=== PATIENT | male | born 1970 | race Caucasian/White ===

== ENCOUNTER 2018-08-30 16:17 | Observation (INO) | payer BC ==
[2018-08-30] MEDS ORDERED: Al Hydrox/Mg Hydrox/Simet LIQ* 30 ML UDC PO ONE (16:46)
[2018-08-30] MEDS ORDERED: Lidocaine 2% VISCOUS* 15 ML UDC PO ONE (16:46)
--- NOTE | 2018-08-30 16:58 | ED ---
Abdominal Pain/Male - HPI Summary HPI Summary: This patient is a 48 year old M presenting to [facility] c/o epigastric pain that has been intermittent for the last two weeks but recently became constant. The patient received an US 3 days ago that showed atrophic pancreas. Pr also goes have type II DM but is not responding to his medications, so he has elevated BG recently. The patient rates the pain 8/10 in severity and states it radiates into his back. Symptoms aggravated by eating and hitting bumps in his car. Symptoms alleviated by compression. Patient denies injury, significant weight loss, and melena. No hx of etoh abuse. The patient takes Tramadol for pain and had bariatric surgery in [address] Mcclendon. - History of Current Complaint Chief Complaint: EDAbdPain Stated Complaint: ABD PAIN/BACK PAIN Time Seen by Provider: 08/30/18 16:35 Hx Obtained From: Patient Onset/Duration: Still Present Timing: Constant Severity Initially: Severe Severity Currently: Severe Pain Intensity: 8 Pain Scale Used: 0-10 Numeric Location: Epigastric Radiates: Yes Radiates to: Back Aggravating Factor(s): Food, Other: - jaring movements Associated Signs And Symptoms: Positive: Negative - injury, significant weight loss, and melena. - Allergies/Home Medications Allergies/Adverse Reactions: Allergies Allergy/AdvReac Type Severity Reaction Status Date / Time No Known Allergies Allergy Verified 08/30/18 16:33 Home Medications: Home Medications Liraglutide (NF) [Victoza (NF)] 1 mg SUBCUT DAILY 08/30/18 [History Confirmed ] Lisinopril 10 mg PO DAILY 08/30/18 [History Confirmed 08/30/18] Pregabalin [Lyrica] 50 mg PO TID 08/30/18 [History Confirmed 08/30/18] Tramadol HCl 50 mg PO DAILY 08/30/18 [History Confirmed 08/30/18] metFORMIN* [Glucophage 1000 MG TAB *] 1,000 mg PO BID 08/30/18 [History Confirmed 08/30/18] PMH/Surg Hx/FS Hx/Imm Hx Endocrine/Hematology History: Reports: Hx Diabetes Denies: Hx Thyroid Disease Cardiovascular History: Reports: Hx Cardiomegaly - STATED NOTED AFTER ROUTINE XRAY YEARS AGO-NO PROBLEMS, Hx Hypertension Denies: Hx Congestive Heart Failure, Hx Pacemaker/ICD, Other Cardiovascular Problems/Disorders Respiratory History: Reports: Hx Sleep Apnea, Other Respiratory Problems/ Disorders - bipap at night Denies: Hx Asthma, Hx Chronic Obstructive Pulmonary Disease (COPD) GI History: Reports: Hx Gall Bladder Disease - gall bladder removal, Hx Irritable Bowel, Other GI Disorders - gastric bypass, incontinence Denies: Hx Ulcer Sensory History: Reports: Hx Contacts or Glasses Denies: Hx Hearing Aid Opthamlomology History: Reports: Hx Contacts or Glasses Neurological History: Reports: Hx Headaches - OCCASIONAL, Hx Nerve Disease - DIABETIC NEUROPATHY, Hx Seizures, Other Neuro Impairments/Disorders - OCCASIONAL NUMB FINGERS DUE TO LYMPH NODE SWELLING BILATERAL ARMPITS Psychiatric History: Reports: Hx Anxiety - ON MEDS, Hx Depression - Surgical History Surgery Procedure, Year, and Place: GALL BLADDER REMOVED,. bariatric surgery ( April 2013). Nasal Surgery. Knee surgery. Tonsillectomy Hx Anesthesia Reactions: No - Immunization History Date of Tetanus Vaccine: unknown Date of Influenza Vaccine: 2013 Infectious Disease History: No Infectious Disease History: Denies: Hx Hepatitis, Hx Human Immunodeficiency Virus (HIV), Traveled Outside the [place] in Last 30 Days - Family History Known Family History: Negative: Respiratory Disease, Seizure Disorder - Social History Alcohol Use: None Substance Use Type: Reports: None Hx Tobacco Use: Yes Smoking Status (MU): Light Every Day Tobacco Smoker Type: Cigarettes Amount Used/How Often: on and off for years Have You Smoked in the Last Year: Yes Review of Systems Constitutional: Negative - injury Negative: Fever, Chills Negative: Erythema Negative: Sore Throat Negative: Chest Pain Negative: Shortness Of Breath, Cough Gastrointestinal: Negative - weight loss melena Positive: Abdominal Pain. Negative: Vomiting, Nausea Negative: dysuria, hematuria Negative: Myalgia, Edema Negative: Rash Neurological: Negative - dizziness All Other Systems Reviewed And Are Negative: Yes Physical Exam - Summary Physical Exam Summary: Constitutional: Well-developed, Well-nourished, Alert. (-) Distressed Skin: Warm, Dry HENT: Normocephalic; Atraumatic Eyes: Conjunctiva normal Neck: Musculoskeletal ROM normal neck. (-) JVD, (-) Stridor, (-) Tracheal deviation Cardio: Rhythm regular, rate normal, Heart sounds normal; Intact distal pulses; The pedal pulses are 2+ and symmetric. Radial pulses are 2+ and symmetric. (-) Murmur Pulmonary/Chest wall: Effort normal. (-) Respiratory distress, (-) Wheezes, (-) Rales Abd: Soft, (+) epigastric tenderness, (-) Distension, (-) Guarding, (-) Rebound Musculoskeletal: (-) Edema Lymph: (-) Cervical adenopathy Neuro: Alert, Oriented x3 Psych: Mood and affect Normal Triage Information Reviewed: Yes Vital Signs On Initial Exam: Initial Vitals Temp Pulse Resp BP Pulse Ox 97.8 F 88 20 184/106 99 08/30/18 16:18 08/30/18 16:18 08/30/18 16:18 08/30/18 16:18 08/30/18 16:18 Vital Signs Reviewed: Yes Diagnostics - Vital Signs Vital Signs Temp Pulse Resp BP Pulse Ox 08/30/18 16:18 97.8 F 88 20 184/106 99 - Laboratory Result Diagrams: 08/30/18 16:51 08/30/18 16:51 Lab Statement: Any lab studies that have been ordered have been reviewed, and results considered in the medical decision making process. - CT CT ABD/Pelvis CT Interpretation Completed By: Radiologist Summary of CT Findings: 1. There appears to be mild wall thickening in the distal esophagus, cannot. exclude esophagitis. 2. No other acute CT pathology. No signs of bowel obstruction or significant. bowel inflammatory change. ED physician has reviewed this radiology report. Re-Evaluation - Re-Evaluation First Eval Re-Evaluation Time: 18:46 Change: Unchanged Comment: The patient has had no improvement in pain with medications. He also denies vomiting Abdominal Pain Fem Course/Dx - Course Assessment/Plan: This patient is a 48 year old M presenting to [facility] c/o epigastric pain that has been intermittent for the last two weeks but recently became constant. The patient received an US 3 days ago that showed atrophic pancreas. Pr also goes have type II DM but is not responding to his medications , so he has elevated BG recently. The patient rates the pain 8/10 in severity and states it radiates into his back. Symptoms aggravated by eating and hitting bumps in his car. Symptoms alleviated by compression. Patient denies injury, significant weight loss, and melena. No hx of etoh abuse. The patient takes Tramadol for pain and had gastric [place] [address] ABD/Pelvis reveals, per radiologist, 1. There appears to be mild wall thickening in the distal esophagus, cannot. exclude esophagitis. 2. No other acute CT pathology. No signs of bowel obstruction or significant. bowel inflammatory change. Blood work obtained. In the ED course the patient was given insulin, GI cocktail, Zofran, morphine, and IV fluids. Dx epigastric pain and uncntorlled. We discussed patient care with Dr. Kelly and the patient was accepted for admission. Patient will be admitted. The patient is agreeable with this plan. - Diagnoses Differential Diagnosis/HQI/PQRI: Peptic Ulcer Disease, Other - gastric bypass ulcer, gastritis, pancreatitis Provider Diagnoses: Uncontrolled diabetes mellitus, Epigastric pain - Provider Notifications Discussed Care Of Patient With: Teresa Kelly Time Discussed With Above Provider: 20:44 Instructed by Provider To: Admit As Inpatient Discharge - Sign-Out/Discharge Documenting (check all that apply): Patient Departure - admitted - Discharge Plan Condition: Fair Disposition: ADMITTED TO [facility] Referrals: Ximena Fitch NP [Primary Care Provider] - - Attestation Statements Document Initiated by Armandoibe: Yes Documenting Scribe: Zeus Maria Provider For Whom Dillon is Documenting (Include Credential): David Gold MD Scribe Attestation: Zeus Norris scribed for David Gold MD on 08/30/18 at 2044. Status of Scribe Document: Ready
[2018-08-30 17:01] LABS: ABS Basophils 0 10^3/ul (0-0.2); ABS Eosinophils 0.1 10^3/ul (0-0.6); ABS Lymphocytes 1.6 10^3/ul (1.0-4.8); ABS Monocytes 0.5 10^3/ul (0-0.8); ABS Neutrophils 2.9 10^3/ul (1.5-7.7); ABS Nucleated RBC 0 10^3/ul; Eosinophil % 2.7 %; Hematocrit 38 % (42-52); Hemoglobin 12.8 g/dl (14.0-18.0); Lymphocyte % 30.4 %; Mean Corpuscular HGB Conc 34 g/dl (31-36); Mean Corpuscular Hemoglobin 30 pg (27-31); Mean Corpuscular Volume 90 fL (80-94); Mean Platelet Volume 7.6 fL (7.4-10.4); Nucleated Red Blood Cells % 0.1; Platelet Count 274 10^3/ul (150-450); Red Blood Count 4.22 10^6/ul (4.00-5.40); Red Cell Distribution Width 13 % (10.5-15); White Blood Count 5.2 10^3/ul (3.5-10.8)
[2018-08-30 17:20] LABS: Albumin 2.8 g/dL (3.2-5.2); Albumin/Globulin Ratio 1.1 (1-3); BUN/Creatinine Ratio 36.5 (8-20); C Reactive Protein 2.22 mg/L (<8.01); Calcium 8.3 mg/dL (8.6-10.3); EGFR Non-African American 96.6 (>60); Globulin 2.5 g/dL (2-4); Potassium 4.3 mmol/L (3.5-5.0); Total Bilirubin 0.3 mg/dL (0.2-1.0); Total Protein 5.3 g/dL (6.4-8.9)
[2018-08-30] MEDS ORDERED: Iodixanol* (CONTRAST) 320 MG/ML 100 ML SDV IV ONE (17:51)
[2018-08-30] MEDS ORDERED: Insulin REGULAR(*) 1 UNITS UNIT SUBCUT ONE (18:23)
[2018-08-30] MEDS ORDERED: Ondansetron INJ* 2 MG/ML VIAL IV ONE (18:44)
[2018-08-30] MEDS ORDERED: Morphine VIAL* 4 MG/ML VIAL (1 ml vial) IV ONE (18:44)
[2018-08-30] MEDS ORDERED: NS 0.9% 1000 ML* 1,000 ML IV ONE (18:44)
[2018-08-30] MEDS ORDERED: Nicotine Inhaler* 10 MG AMP INH PRN (21:09)
[2018-08-30] MEDS ORDERED: Dextrose 50% Syringe 50 ML* 25 GM/50 ML SYRINGE IV PUSH PRN (21:15)
[2018-08-30] MEDS ORDERED: PROCHLORPERAZINE INJ 5 MG/ML 2 ML VIAL IV PRN (21:29)
[2018-08-30] MEDS ORDERED: Insulin LISPRO* 1 UNITS UNIT SUBCUT SCH (22:00)
[2018-08-30] MEDS ORDERED: Insulin GLARGINE(*) 1 UNITS UNIT SUBCUT SCH (22:00)
--- NOTE | 2018-08-30 22:33 | HP ---
CC: Ximena Fitch NP HISTORY AND PHYSICAL: PRIMARY CARE PROVIDER: Ximena Fitch NP ADDENDUM: The patient's EKG shows sinus rhythm at 77 beats per minute with a left anterior fascicular block and no acute ischemic changes. No significant change when compared to his prior EKG from May 2015. [id number]/[facility] #: [id number] MTDD
[2018-08-30] MEDS: Lactated Ringers 1000 ML Bag* 1,000 ML IV SCH (23:04)
[2018-08-30] MEDS: Morphine INJ* 2 MG/ML 1 ML SYRINGE (TWO MG - NEW SYRINGE VERSION) IV PRN (23:30)
[2018-08-30] MEDS: Pantoprazole IV* 40 MG IV SCH (23:31)
--- NOTE | 2018-08-30 23:34 | HP ---
ADDENDUM NOW INCLUDED ON THIS REPORT CC: Ximena Fitch NP * HISTORY AND PHYSICAL: DATE OF ADMISSION: 08/30/18 TIME OF EVALUATION: 9 p.m. PRIMARY CARE PROVIDER: Ximena Fitch NP. CHIEF COMPLAINT: Abdominal pain. HISTORY OF PRESENT ILLNESS: Mr. Jackson is a 48-year-old male with past medical history of type 2 diabetes, depression, hyperlipidemia, hypertension, obesity; status post gastric bypass Young-en-Y, status post cholecystectomy who presented to the emergency room with complaints of abdominal pain. The patient states that he was in his usual state of health until around [place] when he started to experience epigastric abdominal pain. He states that the pain was a "rolling" sensation that he rated 2/10. Initially, the pain would subside with Tylenol, but it continued to progress to the point that it radiated under both sides of his rib cage and towards his back. He states that when the pain is severe, he would rate it at 9/10 and he states that it is very difficult to describe it because sometimes it can feel as a stabbing sensation and other times it can feel like this rolling sensation. He denies nausea and vomiting, but states that sometimes when he drinks liquids fast, he feels that the liquid gets stuck and then it comes right back up, but he does not call that vomiting. He denies diarrhea. He states that since his surgery he can go 4 to 5 days without a bowel movement and then has 4 to 5 bowel movements in a day and this has been unchanged. He states that he did well after the surgery and has lost more than 200 pounds. He states that he has had no issues with his stomach since the surgery and that he does not follow any specific diet. He only eats everything in very small portions. He denies fever, chills, cough, shortness of breath, chest pain. He complains of mild left-sided shoulder pain that is worse with left arm abduction. There is no chest pain, no palpitations. 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 There is no urinary complaint also. With his significant weight loss, the patient has a small pannus in the abdominal area that is actually smaller than expected for his considerable weight loss, but he complains of a burning sensation and tingly feeling in the area. PAST MEDICAL HISTORY: 1. Type 2 diabetes. 2. Depression. 3. Obesity, status post Young-en-Y in 2012 with weight loss greater than 200 pounds. 4. Hyperlipidemia. 5. Hypertension. 6. Status post cholecystectomy. 7. Status post septoplasty for deviated septum. MEDICATIONS: 1. Victoza 1.2 mg subcutaneously daily. 2. Lisinopril 10 mg p.o. daily. 3. Metformin 1000 mg p.o. b.i.d. 4. Lyrica 50 mg p.o. t.i.d. 5. Tramadol 50 mg p.o. daily. 6. Chantix 1 mg p.o. b.i.d. ALLERGIES: No known drug allergies. FAMILY HISTORY: His mother had a history of TIA and breast cancer. Father, diabetes and pancreatitis. SOCIAL HISTORY: The patient was a pihy-nksl-y-day smoker. He has quit multiple times and is now on Chantix again and smoking 2 to 3 cigarettes a day. He denies any history of alcohol or drug use. 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 Due to his uncontrolled diabetes, he will have to go on to disability and he will lose his truck, so he is homeless at this time. Surrogate decision maker is his friend, Alida Jackson; phone number is [phone]. REVIEW OF SYSTEMS: A 14-point review of systems was performed and all the pertinent negative and positive findings are in the HPI. PHYSICAL EXAMINATION GENERAL: Patient is a pleasant middle-aged gentleman, sitting up in the ED stretcher, in no acute distress. VITAL SIGNS: Temperature 97.8, heart rate is 76, respiratory rate 20, oxygen saturation 97% on room air, blood pressure is 138/86. HEENT: Pupils are equal. Moist mucous membranes. CHEST: Breath sounds present bilaterally with no added sounds. CVS: Normal S1, S2. Regular rate and rhythm. ABDOMEN: Shows mild diffuse tenderness with no guarding or rebound. The tenderness is more intense in the epigastric area. Bowel sounds are present. He has a small pannus. EXTREMITIES: No edema. NEUROLOGIC: He is alert and oriented x3, able to move all 4 extremities. LABORATORY/IMAGING DATA: Patient had a CBC that showed a WBC of 5.2, hemoglobin of 12.8, hematocrit of 38, platelets of 274 with 55% neutrophils. Chemistry showed sodium of 133, potassium 4.3, chloride of 99, bicarbonate of 31 , BUN of 31, creatinine of 0.8, glucose of 590, lactic acid of 1.9, calcium of 8.3. LFTs showed total bilirubin of 0.3, AST of 89, ALT of 76, alk phos of 245 , CRP of 2.2, lipase of 357. CT of the abdomen and pelvis showed mild wall thickening in the distal esophagus , cannot exclude esophagitis. No other acute CT pathology. No signs of bowel obstruction or significant bowel inflammatory change. The pancreas was described as normal with no ductal dilation. Abdomen ultrasound was performed on 08/27/18 and it showed hepatosteatosis, status post cholecystectomy with no biliary dilatation, an atrophic pancreas, and 3 cm cyst in the lower pole of the right kidney. ASSESSMENT AND PLAN: Mr. Jackson is a 48-year-old male with a past medical history of type 2 diabetes, hyperlipidemia, hypertension, depression, status post gastric bypass with Young-en-Y, status post cholecystectomy who presented to the emergency room with complaints of abdominal pain. 1. Abdominal pain. The patient's lipase is slightly elevated, but his CT shows no signs of acute pancreatitis. The patient denies a history of alcohol abuse. I am concerned that his abdominal pain may be secondary to gastritis versus an anastomotic ulcer considering his history of Young-en-Y. His CT is also suggestive of possible esophagitis. The patient will be admitted as observation to the medical floor. He will have clear liquids for now and will be n.p.o. after midnight for an upper endoscopy in the morning. A GI consultation was requested with Dr. Garcia. At this point, he will be started on a PPI and he will receive symptomatic treatment. His LFTs are elevated and he already had some elevation back in 2015. This is probably associated with his steatosis. We will check hepatitis serology, but as described, his CT and ultrasound did not show any biliary pathology. 2. Type 2 diabetes, has been uncontrolled. The patient states that he is in the process of going into disability, so he can use insulin and focus on his diabetes control. At this time, he is going to be started on insulin now. I am holding his Victoza and we will also hold his metformin as he had a contrast study. He will receive Lantus and lispro q.4 hours. Although his glucose is 590, he has a normal bicarb and only mild hyponatremia with no signs of diabetic ketoacidosis. I will request endocrinology evaluation as this patient would certainly benefit from an evaluation. I will also check a lipid profile as I suspect his triglycerides will be elevated contributing to his steatosis. 3. Hypertension, is controlled. We will continue his lisinopril. 4. DVT prophylaxis. The patient has a score of 1 and he will have SCDs. 5. Code status is full. TIME SPENT: Approximately 60 minutes were spent with the patient interview, medical records review, physical examination to complete the admission, more than half this time was spent [id number] with the patient and in coordination of care. ADDENDUM: The patient's EKG shows sinus rhythm at 77 beats per minute with a left anterior fascicular block and no acute ischemic changes. No significant change when compared to his prior EKG from May 2015. [id number]/[facility]PS #: [id number] #: [id number] SANYA
[2018-08-31] MEDS: Morphine INJ* 2 MG/ML 1 ML SYRINGE (TWO MG - NEW SYRINGE VERSION) IV PRN ×9 (01:05→22:25)
[2018-08-31] MEDS ORDERED: HYDROmorphone INJ1* 1 MG/ML SYRINGE IV SLOW PU ONE (05:57)
[2018-08-31] MEDS: Lactated Ringers 1000 ML Bag* 1,000 ML IV SCH ×2 (07:29→18:22)
[2018-08-31 07:54] LABS: Anion Gap 3 mmol/L (2-11); BUN/Creatinine Ratio 38.3 (8-20); Blood Urea Nitrogen 23 mg/dL (6-24); CO2 Carbon Dioxide 31 mmol/L (22-32); Calcium 8.1 mg/dL (8.6-10.3); Chloride 103 mmol/L (101-111); Cholesterol 189 mg/dL; EGFR Non-African American 144.4 (>60); Glucose 176 mg/dL (70-100); HDL Cholesterol 31.7 mg/dL; LDL Cholesterol 117 mg/dL; Potassium 4.2 mmol/L (3.5-5.0); Sodium 137 mmol/L (135-145); Triglycerides 201 mg/dL
[2018-08-31] MEDS: Insulin LISPRO* 1 UNITS UNIT SUBCUT SCH ×4 (08:36→22:23)
[2018-08-31] MEDS ORDERED: Lisinopril TAB* 10 MG PO SCH (09:00)
[2018-08-31] MEDS ORDERED: traMADol TAB* 50 MG PO SCH (09:00)
[2018-08-31] MEDS: Pregabalin CAP(*) 50 MG PO SCH ×3 (09:50→22:25)
[2018-08-31] MEDS: VARENICLINE 0.5 MG PO SCH ×2 (09:51→22:37)
[2018-08-31 10:21] LABS: Hepatitis B Surface Antigen Nonreactive (Nonreactive)
[2018-08-31 10:45] LABS: Hepatitis C Antibody Nonreactive (Nonreactive)
[2018-08-31 11:05] LABS: Urine Appearance Clear; Urine Bacteria Absent (Absent); Urine Bilirubin Negative (Negative); Urine Blood Negative (Negative); Urine Color Yellow; Urine Glucose 2+(150 mg/dL) (Negative); Urine Ketones 1+ (Negative); Urine Nitrite Negative (Negative); Urine Protein 2+(100 mg/dL) (Negative); Urine Red Blood Cell 1+(3-5/hpf) (Absent); Urine Specific Gravity 1.026 (1.010-1.030); Urine Urobilinogen Positive (Negative); Urine White Blood Cell Trace(0-5/hpf) (Absent)
[2018-08-31] MEDS ORDERED: Buffered Lidocaine 1% SYRIN* 1 ML/SYRINGE INTRADERM ONE (11:28)
[2018-08-31] MEDS ORDERED: Acetaminophen TAB* 325 MG PO PRN (11:29)
[2018-08-31] MEDS ORDERED: Naloxone* 0.4 MG/ML 1 ML VIAL IV PRN (11:29)
[2018-08-31] MEDS ORDERED: Levalbuterol 0.63MG/3ML NEB* UNIT OF USE INH PRN (11:29)
[2018-08-31] MEDS ORDERED: Famotidine IV* 10 MG/ML 2 ML (20 mg) ONE (11:56)
[2018-08-31] MEDS ORDERED: fentaNYL* 50 MCG/ML 2 ML VIAL (100 MCG VIAL) ONE (11:56)
[2018-08-31] MEDS ORDERED: Midazolam* 1 MG/ML 2 ML VIAL (2 MG) ONE (11:56)
[2018-08-31] MEDS ORDERED: Propofol* 10 MG/ML 20 ML BTL ONE (12:08)
[2018-08-31] MEDS ORDERED: Dexamethasone IV* 4 MG/ML 1 ML (4 MG) ONE (12:08)
[2018-08-31] MEDS ORDERED: Lidocaine 2% PF * 5 ML VIAL ONE (12:08)
--- NOTE | 2018-08-31 12:19 | CONS ---
CC: Ximena Fitch NP CONSULTATION REPORT: DATE OF CONSULT: 08/31/18 REASON FOR CONSULTATION: Abdominal pain, history of gastric bypass, concern for anastomotic ulcerati on. HISTORY OF PRESENT ILLNESS: This is a pleasant 48-year-old male with a history of type 2 diabetes, d epression, hyperlipidemia, morbid obesity, status post Young-en-Y gastric bypass, and cholecystectomy, who presented to the emergency room with abdominal pain and back pain. The patient states that the pain began in mid July. He started to experience pain mostly in the epigastric region. He said it was cramping initially, rated at 2 to 3/10. He did take some Tylenol, which would help subside so me of the pain. He states that the pain is occasionally worse with eating. He states that the pain never fully goes away at this point. It waxes and wanes between 2 to 9/10. Admits to nausea and vom iting, did have 1 episode of nausea this morning with dry heaves. No hematemesis. He does admit to liquid dysphagia and describes almost rumination at times. Denies any diarrhea but admits to not mov ing his bowels every 4 to 5 days and then he will have some looser movements during the day and then the cycle repeats itself. He is not taking anything for his bowels at this time. He denies any feve r, chills, shakes or rigors. PAST MEDICAL HISTORY: Diabetes type 2, depression, obesity, hyperlipidemia, hypertension, cholecyste ctomy, septoplasty, Young-en-Y gastric [place] [address] Mcclendon. HOME MEDICATIONS: Include: 1. Victoza. 2. Lisinopril. 3. Metformin. 4. Lyrica. 5. Tramadol. 6. Chantix. ALLERGIES: No known drug allergies. FAMILY HISTORY: No family history of GI cancer or inflammatory bowel disease. SOCIAL HISTORY: He smokes half a pack a day. Denies alcohol or drug use. REVIEW OF SYSTEMS: The remainder of the 14-point review of systems is grossly negative except for as described in the HPI. PHYSICAL EXAM: Vital Signs: Blood pressure is 154/97, pulse is 72, respiratory rate is 16, he is 98 % on room air. In general, he is alert and oriented, in no acute distress. HEENT: Atraumatic, norm ocephalic. Pupils equal, round, reactive to light. Extraocular movements intact. Conjunctivae are pink. Sclerae anicteric. Cardiovascular: Regular rate and rhythm. S1, S2. Respiratory: Clear to auscultation bilaterally. Abdomen: Soft. Mild tenderness to palpation in the epigastric region. No guarding or rebound. Extremities: No clubbing, no cyanosis, no edema. DIAGNOSTIC STUDIES/LAB DATA: Hemoglobin is 12.8, platelet count is 274. Sodium is 133. Glucose on admission was 590, now 176. AST is 89, ALT is 76, alkaline phosphatase is 245. Lipase is 357 on adm ission, now 54. He had a CT of the abdomen and pelvis, this revealed esophageal thickening, did not reveal any pancreatic changes. ASSESSMENT AND PLAN: This is a 48-year-old male with epigastric pain and mild anemia. 1. Epigastric pain. The patient has a history of Young-en-Y. Pain is atypical given the constant na ture for GI pain but certainly an anastomotic ulceration is within the differential. We discussed th e risks, benefits, and alternatives to endoscopic evaluation and we will proceed with endoscopic eval uation. Of note, the patient did have esophageal thickening on the CT and has liquid dysphagia. 2. Anemia. We would recommend checking iron studies, if found to be iron deficient. Recommend if n o source found on upper endoscopy outpatient colonoscopy will be considered. 3. Transaminitis. History of obesity in the past. He does not drink alcohol. We will recommend he patitis serologies in addition to autoimmune workup and the patient will need to follow up with me in the office after discharge from the hospital for further evaluation. 4. Type 2 diabetes mellitus. [id number]/[facility] #: [id number]
[2018-08-31] MEDS: traMADol TAB* 50 MG PO SCH ×3 (14:05→22:24)
--- NOTE | 2018-08-31 14:38 | PN ---
Subjective Date of Service: 08/31/18 Interval History: Mr. Jackson is feeling ok this morning. He c/o abd tenderness, though no outright pain. He describes lower back pain which radiates to bilat flanks. This has been present since around . He also c/o BUE and BLE weakness. Reports multiple falls since where he feels as though his legs are "giving out." Describes tingling in bilat hands and feet and a "numb" sensation to his lower abd, though he denies any loss of sensation in that area. No incontinence or saddle anesthesia. Denies CP, SOB, N/V/D. Family History: Unchanged from Admission Social History: Unchanged from Admission Past Medical History: Unchanged from Admission Objective Active Medications: Acetaminophen (Tylenol Tab*) 650 mg PO ONCE PRN PAIN - MILD Dextrose (D50w Syringe 50 Ml*) 12.5 gm IV PUSH .FOR FS < 60 - SS PRN FS < 60 Lactated Ringer's (Lactated Ringers 1000 Ml Bag*) 1,000 mls @ 125 mls/hr IV PER RATE [facility] Lactated Ringer's (Lactated Ringers 1000 Ml Bag*) 1,000 mls @ 125 mls/hr IV PER RATE [facility] Insulin Human Lispro (Humalog*) 0 units SUBCUT ACHS [facility]; Protocol Levalbuterol HCl (Xopenex 0.63mg/3ml Neb*) 0.63 mg INH ONCE PRN SOB/WHEEZING Lidocaine/Sodium Bicarbonate (Buffered Lidocaine 1% Syrin*) 0.2 ml INTRADERM ONCE ONE Lisinopril (Prinivil Tab*) 10 mg PO DAILY [facility] Morphine Sulfate (Morphine Inj ((Syringe))*) 2 mg IV Q3H PRN SEVERE PAIN Naloxone HCl (Narcan*) 0.08 mg IV Q2M PRN severe induced resp depression Nicotine (Nicotine Inhaler*) 10 mg INH Q2H PRN CRAVING Pantoprazole Sodium (Protonix Iv*) 40 mg IV Q24H [facility] Pregabalin (Lyrica Cap(*)) 50 mg PO TID [facility] Prochlorperazine Edisylate (Compazine Inj*) 5 mg IV Q6H PRN NAUSEA/VOMITING Tramadol HCl (Ultram*) 50 mg PO Q6H [facility] Varenicline (Chantix (Nf)) 1 mg PO BID [facility] Vital Signs - 8 hr 08/31/18 08/31/18 08/31/18 07:53 09:50 09:51 Temperature 98.2 F Pulse Rate 73 Respiratory 18 18 18 Rate Blood Pressure 175/98 (mmHg) O2 Sat by Pulse 98 Oximetry 08/31/18 08/31/18 08/31/18 10:05 12:20 12:25 Temperature 98.1 F Pulse Rate 73 Respiratory 16 Rate Blood Pressure 180/72 140/88 (mmHg) O2 Sat by Pulse 98 Oximetry 08/31/18 08/31/18 08/31/18 12:30 12:31 12:35 Temperature Pulse Rate 74 75 75 Respiratory 5 14 8 Rate Blood Pressure 142/86 134/86 (mmHg) O2 Sat by Pulse 98 98 96 Oximetry 08/31/18 08/31/18 08/31/18 12:40 12:45 12:50 Temperature Pulse Rate 75 74 74 Respiratory 4 1 0 Rate Blood Pressure 143/91 146/88 146/86 (mmHg) O2 Sat by Pulse 95 93 96 Oximetry 08/31/18 08/31/18 08/31/18 12:55 13:00 13:01 Temperature Pulse Rate 75 74 75 Respiratory 3 0 0 Rate Blood Pressure 151/92 146/88 (mmHg) O2 Sat by Pulse 96 96 97 Oximetry 08/31/18 08/31/18 13:05 14:05 Temperature Pulse Rate 75 Respiratory 18 Rate Blood Pressure 164/94 (mmHg) O2 Sat by Pulse 93 Oximetry Oxygen Devices in Use Now: None Appearance: Middle-aged male laying in bed in NAD Eyes: No Scleral Icterus Ears/Nose/Mouth/Throat: Mucous Membranes Moist Neck: NL Appearance and Movements; NL JVP, Trachea Midline Respiratory: Symmetrical Chest Expansion and Respiratory Effort, Clear to Auscultation Cardiovascular: NL Sounds; No Murmurs; No JVD, RRR Abdominal: - - Mild tenderness to palpation of RLQ and LLQ Extremities: No Edema Skin: No Rash or Ulcers Neurological: Alert and Oriented x 3, - - 4/5 strength to BUE and BLE Lines/Tubes/Other Access: Clean, Dry and Intact Peripheral IV Nutrition: Taking PO's Result Diagrams: 08/30/18 16:51 08/31/18 07:11 Assess/Plan/Problems-Billing Assessment: Mr. Jackson is a 48 yo M with PMH of DM2, depression, obesity s/p gastric bypass in 2013, HTN and HLD; who presented to the ED with c/o abd pain without a clear etiology. - Patient Problems (1) Abdominal pain Code(s): R10.9 - UNSPECIFIED ABDOMINAL PAIN Comment: - Unclear etiology - CT shows esophageal wall thickening, but no other acute findings - Recent abd US shows hepatosteatosis and atrophic pancreas - Appreciate GI consult; plan for upper endoscopy today - Continue pantoprazole, morphine (2) Weakness Code(s): R53.1 - WEAKNESS Comment: - With decreased strength to BUE and BLE, reported recent falls - Appears as though he did not mention this on admission yesterday, and there are no neurological deficits noted in H&P, so this may represent malingering - Check MRI brain and spine to r/o neurological etiology (3) Headache Code(s): R51 - HEADACHE Comment: - Possible malingering - Check MRI brain d/t sudden onset and age (4) Elevated LFTs Code(s): R94.5 - ABNORMAL RESULTS OF LIVER FUNCTION STUDIES Comment: - Possibly secondary to hepatosteatosis - Will recheck LFTs today (5) Diabetes type 2, uncontrolled Code(s): E11.65 - TYPE 2 DIABETES MELLITUS WITH HYPERGLYCEMIA Comment: - Hgb A1c 12.8% and significant hyperglycemia on arrival to ED - Appreciate Endocrine consult - Will check c-peptide d/t atrophic pancreas and elevated A1c; ? type 1.5 - Hold Victoza, metformin - Continue lispro SS (6) Hypertension Code(s): I10 - ESSENTIAL (PRIMARY) HYPERTENSION Comment: - SBP 130-150s - Continue lisinopril (7) History of Young-en-Y gastric bypass Code(s): Z98.84 - BARIATRIC SURGERY STATUS Comment: - Continue patoprazole (8) DVT prophylaxis Comment: - SCDs (9) Full code status Code(s): Z78.9 - OTHER SPECIFIED HEALTH STATUS Comment: Status and Disposition: Observation. Anticipate d/c home when medically stable, possibly tomorrow depending on MRI results. Attending: Juan Deleon
[2018-08-31 15:23] LABS: Iron 84 ug/dL (50-212); Total Iron Binding Capacity 279 mcg/dL (250-450); Transferrin 199 mg/dL (203-362)
[2018-08-31 15:29] LABS: ALT 164 U/L (7-52); AST 212 U/L (13-39); Albumin 2.6 g/dL (3.2-5.2); Albumin/Globulin Ratio 1.2 (1-3); Alkaline Phosphatase 344 U/L (34-104); Globulin 2.2 g/dL (2-4); Indirect Bilirubin 0.3 mg/dL (0.3-1.0); Total Protein 4.8 g/dL (6.4-8.9)
[2018-08-31 15:40] LABS: Ferritin 163.4 ng/mL (24-336)
[2018-08-31 16:35] LABS: ABS Basophils 0 10^3/ul (0-0.2); ABS Eosinophils 0.2 10^3/ul (0-0.6); ABS Monocytes 0.6 10^3/ul (0-0.8); ABS Neutrophils 2.9 10^3/ul (1.5-7.7); ABS Nucleated RBC 0 10^3/ul; Eosinophil % 2.9 %; Hematocrit 36 % (42-52); Hemoglobin 12.4 g/dl (14.0-18.0); Lymphocyte % 35.6 %; Mean Corpuscular HGB Conc 34 g/dl (31-36); Mean Corpuscular Hemoglobin 30 pg (27-31); Mean Corpuscular Volume 89 fL (80-94); Nucleated Red Blood Cells % 0.1; Platelet Count 283 10^3/ul (150-450); Red Blood Count 4.08 10^6/ul (4.00-5.40); Red Cell Distribution Width 13 % (10.5-15); White Blood Count 5.7 10^3/ul (3.5-10.8)
[2018-08-31 18:37] LABS: TSH (Thyroid Stimulating Horm) 1.22 mcIU/mL (0.34-5.60)
[2018-08-31 18:41] LABS: Free T4 1.04 ng/dL (0.61-1.12)
[2018-08-31] MEDS: Pantoprazole IV* 40 MG IV SCH (22:24)
--- NOTE | 2018-09-01 01:31 | PRO ---
CC: Ximena Fitch NP * EGD REPORT: DATE OF PROCEDURE: 08/31/18 - ROOM #[id number] PRIMARY NURSE PRACTITIONER: Ximena Fitch NP INDICATION FOR PROCEDURE: Epigastric pain, abnormal CT, history of Young-en- bypass. PROCEDURE PERFORMED: Complete esophagogastroduodenoscopy with biopsies. MEDICATIONS GIVEN: Please see anesthesia record. DESCRIPTION OF PROCEDURE: After the EGD procedure including the risks, benefits , and alternatives, with the risks not limited to perforation, surgery, missed lesions, and/or were explained to the patient, written and informed consent was obtained, IV sedation was given by the anesthesia service, and a bite-block was placed between the teeth. The adult Olympus gastroscope was then inserted into the patient's oropharynx carefully into the tubular esophagus. The distal tubular esophagus was normal in appearance with an intact Z-line. The scope was then advanced to the lower esophageal sphincter into the pouch. The pouch was roughly from 34 to 40 cm, was normal in appearance. Biopsies were taken to rule out H. Pylori. At the gastrojejunal junction, there was some mild nodularity and erythema, but no sofía ulceration was noted. Two joe were noted, but no ulceration next to these areas. I did take biopsies of this nodularity. The scope was then advanced into the jejunum quite far without any evidence of abnormality. The scope was then removed from the patient. He tolerated the procedure well. He returned to the recovery room in stable condition. IMPRESSION: 1. Complete esophagogastroduodenoscopy with biopsies. 2. Mild nodularity at the GJ anastomosis, no ulceration, unlikely source of pain. 3. Otherwise normal post bypass anatomy. RECOMMENDATIONS: Reasonable to try PPI trial for his epigastric pain; however, the pain appears to be more musculoskeletal at this time. Would pursue workup of that. In addition, he does admit that he only moves his bowels every 3 to 4 days. Recommend a strong bowel regimen. He is welcome to follow up with me as an outpatient if any further concerns or not moving his bowels well or ongoing epigastric pain. [id number]/[facility] #: [id number] [facility]
[2018-09-01] MEDS: Morphine INJ* 2 MG/ML 1 ML SYRINGE (TWO MG - NEW SYRINGE VERSION) IV PRN ×3 (02:38→10:25)
[2018-09-01] MEDS: traMADol TAB* 50 MG PO SCH ×2 (05:53→12:53)
[2018-09-01] MEDS: Lactated Ringers 1000 ML Bag* 1,000 ML IV SCH (05:54)
[2018-09-01 07:22] LABS: Albumin 2.3 g/dL (3.2-5.2); BUN/Creatinine Ratio 36.4 (8-20); Calcium 8.1 mg/dL (8.6-10.3); EGFR Non-African American 129.4 (>60); Globulin 2.3 g/dL (2-4); Potassium 4.1 mmol/L (3.5-5.0); Total Bilirubin 0.4 mg/dL (0.2-1.0); Total Protein 4.6 g/dL (6.4-8.9)
[2018-09-01] MEDS ORDERED: Lisinopril TAB* 10 MG PO SCH (09:00)
[2018-09-01] MEDS ORDERED: Polyethylene Glycol 3350* 17 GM PACKET PO SCH (09:00)
[2018-09-01] MEDS ORDERED: Docusate CAP* 100 MG PO SCH (09:00)
[2018-09-01] MEDS: Pregabalin CAP(*) 50 MG PO SCH ×2 (09:40→12:53)
[2018-09-01] MEDS: Insulin LISPRO* 1 UNITS UNIT SUBCUT SCH ×2 (09:40→12:53)
[2018-09-01] MEDS: VARENICLINE 0.5 MG PO SCH (09:43)
[2018-09-01 11:18] VITALS: BP 171/86
--- NOTE | 2018-09-01 11:39 | CONSULT ---
Consult Consult: [facility] Inpatient Consult Note Date of Consult: 09/01/18 Reason for Consult: hyperglycemia Reason for Admission: epigastric pain ASSESSMENT: 48 yo M with history of mild, obesity-related type 2 diabetes, now presenting with acute abdominal pain and uncontrolled diabetes (A1c >12%). History of RYGB in 2012 and hypoglycemia-induced seizure in 2014, now with radiographic evidence of atrophic pancreas and concern for insulin-deficiency. He appears to be extremely insulin-sensitive, with >500mg/dL insulin dose given in ED. Based on response to insulin given during this admission, his totaly daily insulin requirement is estimated to be approximately 0.4 units/kg/day, of which 50% should be provided as a basal insulin (glargine) and the remainder as a bolus insulin (lispro) depending on the patient's eating habits. Elevated LFTs (including significant elevation of alk phos) are unexplained. I am suspicious that low vitamin D is affecting calcium and bone homeostasis, as patient has elevated alk phos and osteopenia on imaging. This is most likely due to vitamin deficiency and possibly malabsorption. I cannot explain the lower abdominal and back symptoms at this time. PLAN: - START ergocalciferol 50,000 units once weekly - START insulin glargine 15 units once daily - continue insulin lispro sliding scale while in patient - d/c Victoza at discharge - continue metformin at discharge, but change to XR 750mg preparation - await serum trypsin (for exocrine pancreatic function), PTH (for hypocalcemia ) and fractionated alk phos (ordered today) - await C-peptide for assessment of endocrine pancreatic function - follow-up endocrine in 1-2 weeks - scripts for wearable glucometer (Freestyle Presley) sent to [facility] after discharge SUBJECTIVE: History of Present Illness: 48 yo M presenting to ED with complaints of epigastric abdominal pain, described as a stabbing sensation, 9/10 at worst, radiating to the back. No N/V, but has alternating constipation/frequent BMs since his RYGB surgery in 2012. He tells me that he has lost >200 lbs (>50% of prior body weight in the past 5 years). He has not lost any significant weight in the past year. Notes decreased frequency of urinary since June 2018. Has been off all medications (including vitamins and supplements) for past 3 years. 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 Regarding diabetes, he was on high-dose insulin regimen prior to RYGB surgery and for 1 year afterward. He has not used insulin since hypoglycemia-induced seizure in 2014. No oral medications. Reports frequent urination for many years , attributed to fluid intake. Has not checked his BG in that time. No history of DKA. He has occasional R sided headaches and was told that his vitamin D level was low. Denies loose, watery, foul-smelling stools. Main concern is lower abdominal and back pain with numbness, followed by lower extremity pins and needles. Some difficult with urination, but no sofía dysuria. Past Medical History: Diabetes mellitus type II, depression, obesity s/p RYGB and >50% body weight loss since 2012, obstructive sleep apnea, hyperlipidemia, hypertension, cholecystectomy, and septoplasty for deviated septum. Medications Prior to Admission: Varenicline 0.5 mg Tab(Nf) [Chantix] 1 mg PO BID 06/05/15 [History Confirmed ] Liraglutide (NF) [Victoza (NF)] 1.2 mg SUBCUT DAILY 08/30/18 [History Confirmed 08/30/18] Lisinopril 10 mg PO DAILY 08/30/18 [History Confirmed 08/30/18] Pregabalin [Lyrica] 50 mg PO TID 08/30/18 [History Confirmed 08/30/18] Tramadol HCl 50 mg PO DAILY 08/30/18 [History Confirmed 08/30/18] metFORMIN* [Glucophage 1000 MG TAB *] 1,000 mg PO BID 08/30/18 [History Confirmed 08/30/18] Inpatient Medications: Dextrose (D50w Syringe 50 Ml*) 12.5 gm IV PUSH .FOR FS < 60 - SS PRN PRN Reason: FS < 60 Docusate Sodium (Colace Cap*) 100 mg PO BID [facility] Last Admin: 09/01/18 09:40 Dose: 100 mg Lactated Ringer's (Lactated Ringers 1000 Ml Bag*) 1,000 mls @ 125 mls/hr IV PER RATE [facility] Last Admin: 09/01/18 05:54 Dose: 125 mls/hr Insulin Glargine (Lantus(*)) 15 units SUBCUT Q24H [facility] Insulin Human Lispro (Humalog*) 0 units SUBCUT ACHS [facility]; Protocol Last Admin: 09/01/18 09:40 Dose: 3 units Lisinopril (Prinivil Tab*) 20 mg PO DAILY [facility] Last Admin: 09/01/18 09:40 Dose: 20 mg Morphine Sulfate (Morphine Inj ((Syringe))*) 2 mg IV Q3H PRN PRN Reason: SEVERE PAIN Last Admin: 09/01/18 10:25 Dose: 2 mg Nicotine (Nicotine Inhaler*) 10 mg INH Q2H PRN PRN Reason: CRAVING Pantoprazole Sodium (Protonix Iv*) 40 mg IV Q24H [facility] Last Admin: 08/31/18 22:24 Dose: 40 mg Polyethylene Glycol/Electrolytes (Miralax*) 17 gm PO DAILY [facility] Last Admin: 09/01/18 09:42 Dose: 17 gm Pregabalin (Lyrica Cap(*)) 50 mg PO TID [facility] Last Admin: 09/01/18 09:40 Dose: 50 mg Prochlorperazine Edisylate (Compazine Inj*) 5 mg IV Q6H PRN PRN Reason: NAUSEA/VOMITING Last Admin: 08/31/18 10:00 Dose: 5 mg Tramadol HCl (Ultram*) 50 mg PO Q6H [facility] Last Admin: 09/01/18 05:53 Dose: 50 mg Varenicline (Chantix (Nf)) 1 mg PO BID [facility] Last Admin: 09/01/18 09:43 Dose: Not Given Allergies/Intolerances: NKDA Social History: 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 No current residence -- has been living in [place] of state for past 3 years. Current 1/2 PPD smoker. Denies alcohol or recreational use. Three teenage and adult children, youngest in [place], [place]. Family History: Father with diabetes + pancreatitis. Mother history of TIA. He has 1 brother, 2 sisters, alive and well. Review of Systems: As above. The patient has complained of acute on chronic low back pain recently and underwent sneed-scanning of spinal column to assess for cord compression, which was negative. OBJECTIVE: Temp Pulse Resp BP Pulse Ox 98.2 F 70 14 171/86 94 09/01/18 07:21 09/01/18 07:21 09/01/18 10:25 09/01/18 07:21 09/01/18 07:21 General: alert, pleasant, oriented, no distress ENT: neck supple, no thyromegaly, no bruit is heard Chest: CTAB, no wheezing or crackles CV: RRR, no murmur Abdomen: soft, non-tender Extremities: no edema, distal pulses intact Skin: warm, dry, no rash Neuro: grossly intact motor/sensory in extremities Psych: restricted affect, pleasant Labs: - MRI sneed-spine negative - CT abdomen: osteopenia, otherwise negative - US abdomen: atrophic pancreas WBC 5.7 10^3/ul (3.5-10.8) 08/31/18 07:08 RBC 4.08 10^6/ul (4.00-5.40) 08/31/18 07:08 Hgb 12.4 g/dl (14.0-18.0) L 08/31/18 07:08 Hct 36 % (42-52) L 08/31/18 07:08 MCV 89 fL (80-94) 08/31/18 07:08 MCH 30 pg (27-31) 08/31/18 07:08 MCHC 34 g/dl (31-36) 08/31/18 07:08 RDW 13 % (10.5-15) 08/31/18 07:08 Plt Count 283 10^3/ul (150-450) 08/31/18 07:08 MPV 8.0 fL (7.4-10.4) 08/31/18 07:08 Neut % (Auto) 50.4 % 08/31/18 07:08 Lymph % (Auto) 35.6 % 08/31/18 07:08 [place] % (Auto) 10.4 % 08/31/18 07:08 Eos % (Auto) 2.9 % 08/31/18 07:08 Baso % (Auto) 0.7 % 08/31/18 07:08 Absolute Neuts (auto) 2.9 10^3/ul (1.5-7.7) 08/31/18 07:08 Absolute Lymphs (auto) 2.0 10^3/ul (1.0-4.8) 08/31/18 07:08 Absolute Monos (auto) 0.6 10^3/ul (0-0.8) 08/31/18 07:08 Absolute Eos (auto) 0.2 10^3/ul (0-0.6) 08/31/18 07:08 Absolute Basos (auto) 0 10^3/ul (0-0.2) 08/31/18 07:08 Absolute Nucleated RBC 0 10^3/ul 08/31/18 07:08 Nucleated RBC % 0.1 08/31/18 07:08 Sodium 134 mmol/L (135-145) L 09/01/18 06:41 Potassium 4.1 mmol/L (3.5-5.0) 09/01/18 06:41 Chloride 100 mmol/L (101-111) L 09/01/18 06:41 Carbon Dioxide 30 mmol/L (22-32) 09/01/18 06:41 Anion Gap 4 mmol/L (2-11) 09/01/18 06:41 BUN 24 mg/dL (6-24) 09/01/18 06:41 Creatinine 0.66 mg/dL (0.67-1.17) L 09/01/18 06:41 Est GFR ( Amer) 156.5 (>60) 09/01/18 06:41 Est GFR (Non-Af Amer) 129.4 (>60) 09/01/18 06:41 BUN/Creatinine Ratio 36.4 (8-20) H 09/01/18 06:41 Glucose 277 mg/dL (70-100) H 09/01/18 06:41 POC Glucose (mg/dL) 236 mg/dL (70-100) H 09/01/18 03:21 Hemoglobin A1c 12.8 % (4.0-5.6) H 08/31/18 07:11 Lactic Acid 1.9 mmol/L (0.5-2.0) 08/30/18 16:51 Calcium 8.1 mg/dL (8.6-10.3) L 09/01/18 06:41 Iron 84 ug/dL (50-212) 08/31/18 07:11 TIBC 279 mcg/dL (250-450) 08/31/18 07:11 % Saturation 30 % (15-55) 08/31/18 07:11 Unsat Iron Binding < 264 ug/dL 08/31/18 07:11 Transferrin 199 mg/dL (203-362) L 08/31/18 07:11 Ferritin 163.4 ng/mL (24-336) 08/31/18 07:11 Total Bilirubin 0.40 mg/dL (0.2-1.0) 09/01/18 06:41 Direct Bilirubin 0.10 mg/dL (0.03-0.18) 08/31/18 07:11 Indirect Bilirubin 0.3 mg/dL (0.3-1.0) 08/31/18 07:11 AST 86 U/L (13-39) H 09/01/18 06:41 ALT 116 U/L (7-52) H 09/01/18 06:41 Alkaline Phosphatase 341 U/L (34-104) H 09/01/18 06:41 Troponin I 0.01 ng/mL (<0.04) 08/30/18 16:51 C-Reactive Protein 2.22 mg/L (<8.01) 08/30/18 16:51 Total Protein 4.6 g/dL (6.4-8.9) L 09/01/18 06:41 Albumin 2.3 g/dL (3.2-5.2) L 09/01/18 06:41 Globulin 2.3 g/dL (2-4) 09/01/18 06:41 Albumin/Globulin Ratio 1.0 (1-3) 09/01/18 06:41 Triglycerides 201 mg/dL 08/31/18 07:11 Cholesterol 189 mg/dL 08/31/18 07:11 LDL Cholesterol 117 mg/dL 08/31/18 07:11 HDL Cholesterol 31.7 mg/dL 08/31/18 07:11 Lipase 54 U/L (11.0-82.0) 08/31/18 07:11 Vitamin B12 971 pg/mL (180-914) H 08/31/18 07:11 TSH 1.22 mcIU/mL (0.34-5.60) 08/31/18 07:11 Free T4 1.04 ng/dL (0.61-1.12) 08/31/18 07:11 Urine Color Yellow 08/31/18 10:45 Urine Appearance Clear 08/31/18 10:45 Urine pH 6.0 (5-9) 08/31/18 10:45 Ur Specific [place] 1.026 (1.010-1.030) 08/31/18 10:45 Urine Protein 2+(100 mg/dl) (Negative) A 08/31/18 10:45 Urine Ketones 1+ (Negative) A 08/31/18 10:45 Urine Blood Negative (Negative) 08/31/18 10:45 Urine Nitrate Negative (Negative) 08/31/18 10:45 Urine Bilirubin Negative (Negative) 08/31/18 10:45 Urine Urobilinogen Positive (Negative) A 08/31/18 10:45 Ur Leukocyte Esterase Negative (Negative) 08/31/18 10:45 Urine WBC (Auto) Trace(0-5/hpf) (Absent) 08/31/18 10:45 Urine RBC (Auto) 1+(3-5/hpf) (Absent) A 08/31/18 10:45 Urine Bacteria Absent (Absent) 08/31/18 10:45 Urine Glucose 2+(150 mg/dl) (Negative) A 08/31/18 10:45 Urine Ascorbic Acid * (Negative) A 08/31/18 10:45 Hepatitis A IgM Ab Nonreactive (Nonreactive) 08/30/18 16:51 Hep Bs Antigen Nonreactive (Nonreactive) 08/30/18 16:51 Hep B Core IgM Ab Nonreactive (Nonreactive) 08/30/18 16:51 Hepatitis C Antibody Nonreactive (Nonreactive) 08/30/18 16:51 Hepatitis C Ab Index < 0.0 Index 08/30/18 16:51
[2018-09-01] MEDS ORDERED: Insulin GLARGINE(*) 1 UNITS UNIT SUBCUT SCH (12:00)
--- NOTE | 2018-09-01 22:11 | DS ---
AMENDED REPORT NOW INCLUDES DESIGNATED COSIGNER CC: Ximena Fitch NP; Dr. Shravan Hannon; Dr. Sree Adams * DISCHARGE SUMMARY: DATE OF ADMISSION: 08/30/18 DATE OF DISCHARGE: 09/01/18 PRIMARY CARE PROVIDER: Ximena Fitch NP PROFESSOR OF MECHANICAL ENGINEERING: Dr. Shravan Hannon. MOLD REPAIR TECHNICIAN: Dr. Sree Adams. ATTENDING PHYSICIAN: Dr. Deleon * (dictated by Marley Lemus NP). PRIMARY DIAGNOSES: 1. Back pain. 2. Transaminitis. 3. Uncontrolled diabetes mellitus, type 2. 4. Hypertension. SECONDARY DIAGNOSES: 1. History of Young-en-Y. 2. Hyperlipidemia. STUDIES WHILE IN THE HOSPITAL: 1. Abdomen and pelvis CT on 08/30/18 reads as there appears to be mild wall thickening in the distal esophagus, cannot exclude esophagitis. No other acute CT pathology. No signs of bowel obstruction or significant bowel inflammatory change. 2. EKG on 08/30/18 shows normal sinus rhythm with a rate of 77, left bundle branch block, QTc 423, no ischemic changes. 3. Orbit x-ray on 08/31/18 reads as no radiodense foreign body. Brain MRI on 08/31/18 reads as no acute findings. 4. Cervical spine MRI on 08/31/18 reads as no acute abnormality. Mild bilateral neural foraminal narrowing at C3-C4, C4-C5, and C5-C6. Mild spinal canal stenosis at C5-C6. 5. Lumbar spine MRI on 08/31/18 reads as no acute abnormality. 6. Thoracic spine MRI on 08/31/18 reads as unremarkable thoracic spine. CONSULTATIONS WHILE IN THE HOSPITAL: 1. The patient was seen in consultation by Dr. Hannon from Gastroenterology on 08/31/18 for abdominal pain. 2. The patient was seen in consultation by Dr. Adams from Endocrinology on 09/01 for uncontrolled diabetes. HISTORY OF PRESENT ILLNESS AND HOSPITAL COURSE: Mr. Jackson is a 48-year-old male with past medical history of diabetes, depression, hyperlipidemia, hypertension, obesity, status post Young-en-Y, who presented to the emergency room on 08/30/18 with complaints of abdominal pain. Please see the history and physical by Dr. Osorio for complete summary of the events leading up to this hospitalization. In short, the patient reported epigastric pain since around [place]. The pain progressed to a 9/10, though he had difficulty further describing the pain. In the emergency room, the patient had imaging as noted above and labs, which revealed a glucose of 590 and AST of 89, ALT of 76, and alk phos of 245 and a lipase of 357. There was no evidence of pancreatitis. Because of his history of Young-en-Y, there was a concern for an anastomotic ulcer and so he was admitted by the hospitalist service. He was placed on a PPI and he was seen in consultation by Gastroenterology, who recommended an upper endoscopy and recommended checking autoimmune labs because of the transaminitis. The patient did have a negative hepatitis panel. The patient underwent an upper endoscopy on 08/31/18 where there were no acute findings and no evidence to describe his pain. When I saw the patient om , the patient had no complaints of abdominal pain, though he did describe some lower abdominal tenderness. He reported that his primary symptoms were lower back pain and bilateral upper extremity and lower extremity weakness that had started around [place]. He reported multiple falls since that time due to his legs giving out on him. He also described some numbness in his extremities. His strength was decreased at a 4/5 throughout. Because of the concern for cord compression, he had MRIs of the brain and spine which are noted above. There was no evidence of any cord compression or anything that would cause this pain or change in sensation. It is possible that the patient is malingering, as it seems odd that he did not mention any of these neurological symptoms on admission. The patient was seen by physical therapy today, on the day of discharge, who did note that his strength was 4/5 throughout, though he was currently functional and independent with all mobility and he had no acute physical therapy needs. The patient's lipase did trend down to 54. On the day of discharge, his liver enzymes are as follows: AST 86, ALT 116, alk phos 341. The patient was seen today by Endocrinology due to a hemoglobin A1c of 12.8%. Endocrinology recommended that the patient stopped his Victoza. This may have been contributing to some degree of abdominal pain as Victoza is known to cause pancreatitis, though the patient did not have any evidence of pancreatitis during this admission. The patient was placed on Lantus, which he will need to continue going forward. Dr. Adams will follow up with the patient as an outpatient. He did recommend checking a vitamin D level because of the high alk phos and the concern for osteoporosis. At this time that level is pending and Dr. Adams will follow up with the results of that when the patient sees him in the office. I spoke with the patient at length about his symptoms and the lack of any acute findings on imaging. He reported that the tramadol, which he had been prescribed prior to admission was not effective in relieving his pain. I did speak with him about the possibility of him needing to a see neurologist or the pain clinic if this pain persists. As of today, the patient is ambulating independently and does not display any objective weakness. He continues to complain of back pain, though notes that this is manageable. His blood pressure was noted to be elevated with systolics pressures in the 150s- 170s and so his lisinopril was increased. He has no abdominal pain at this point and no tenderness on palpation. He denies any acid reflux, nausea, or vomiting. Gastroenterology did recommend that the patient be placed on a trial of a PPI for his abdominal symptoms, but because of the lack of symptoms at this point, I have not placed the patient on a PPI as his symptoms are primarily related to back pain. He has no focal neurological deficits and is hesitant, but willing to be discharged home. Mr. Jackson is stable for discharge today. Vital signs are as follows: Temp 98.2, heart rate 70, respiratory rate 18, oxygen saturation 94% on room air, blood pressure 171/86. DISCHARGE MEDICATIONS: New medications: 1. Docusate 100 mg p.o. b.i.d. 2. Ergocalciferol 50,000 units p.o. weekly. 3. Glargine 15 units subcu daily. 4. Oxycodone/acetaminophen 5/325 one tablet p.o. q.4 hours, max daily dose 6. 5. MiraLAX 17 g p.o. daily. 6. Insulin syringes. Changed medications: 1. Lisinopril 20 mg p.o. daily (previously was 10 mg p.o. daily). Continued medications: 1. Metformin 1000 mg p.o. b.i.d. 2. Lyrica 50 mg p.o. t.i.d. 3. Chantix 1 mg p.o. b.i.d. Discontinued medications: 1. Victoza. DISCHARGE PLAN: Mr. Jackson will be discharged home. Activity will be as tolerated. Diet should be diabetic. Medications are noted above. The patient has been prescribed ergocalciferol and glargine based on recommendations from Gastroenterology. Again, as I noted above, the patient has not been prescribed a PPI as he has no abdominal or esophageal symptoms at this point and I think the risks of a PPI outweigh the benefits due to the concern for osteoporosis. He has been instructed to discontinue his Victoza. He will need to follow up with his primary care provider in 4 to 7 days. He can further discuss pain management with her at that point. He should follow up with Dr. Adams in 1 to 2 weeks and he can follow up with Dr. Hannon as needed. He has been instructed to return to the emergency room or nearest hospital for any worsening of symptoms, shortness of breath, lightheadedness, dizziness, chest discomfort, high fevers, chills, night sweats, loss of consciousness or any other worrisome signs or symptoms. This is a summarized report of a complex medical history and hospital stay. For further details, please see the entire medical record. TIME SPENT: Approximately 45 minutes were spent on this discharge. MARLEY LEMUS, JR [id number]/[facility] #: [id number] SANYA
[2018-09-04 16:49] LABS: Smooth Muscle Antibody Negative (Negative)
== END 2018-09-01 15:35 | disposition home or self-care (01) ==
LOC: ED 16:17 → MED 21:03 → OBSVTOIN 08-31 15:20 → INTOOBSV 08-31 15:20
PROVIDERS: ADMIT Internal Medicine; ATTEND Internal Medicine
DX: M54.9 Dorsalgia, unspecified (principal); R74.0 Nonspecific elevation of levels of transaminase and lactic acid dehydrogenase [LDH]; E11.65 Type 2 diabetes mellitus with hyperglycemia; I10 Essential (primary) hypertension; Z98.84 Bariatric surgery status; E78.5 Hyperlipidemia, unspecified; F17.210 Nicotine dependence, cigarettes, uncomplicated; R10.9 Unspecified abdominal pain; F32.9 Major depressive disorder, single episode, unspecified
CPT/HCPCS: 36415; 70030; 70551; 72141; 72146; 72148; 74177; 80048; 80053; 80061; 80074; 80076; 81003; 81015; 82607; 82728; 83036; 83520; 83540; 83550; 83605; 83690; 84439; 84443; 84484; 84681; 85025; 86038; 86140; 86255; 87077; 87086; 88305; 93005; 96372; 96374; 96375; 96376; 99284; 99406; A9270-GY; G0378; J0780; J1100; J1170; J2250; J2270; J2405; J2704; J3010; Q9967

== ENCOUNTER 2018-09-13 09:42 | Inpatient (IN) | payer SELFPAY ==
--- OUTSIDE RECORDS SUMMARY | 2018-09-13 09:54 | XMS REPORT | Continuity of Care Document ---
:1970 External Reference #:[id number] Author Name Shravan Hannon DO Address [address] [place] [id number] Care Team Providers Name Role Phone Shravan Hannon DO Care Team Information Latrine Cleaner Unavailable Payers Type Date Identification Numbers Payment Provider Subscriber Policy Number: [id number] Of TORRIE Taz Reynolds PayID: [id number] [address] [address] [place] [address] Advance Directives Description No Information Available Problems Date Description Provider Status Onset: 11/21/2011 Morbid obesity Lion Conroy MD Active Onset: 11/21/2011 Irritable bowel syndrome Lino Conroy MD Active Onset: 11/21/2011 Type 2 diabetes mellitus Lino Conroy MD Active Note: on insulin -A1c 11.1 (2011) Onset: 11/21/2011 Essential hypertension Lino Conroy MD Active Onset: 04/23/2012 Hemorrhage of rectum and anus DREW Mackay-C Active Onset: 04/23/2012 Anal pain DAGOBERTO Mackay Active Family History Description No Information Available Social History Type Date Description Comments Sex Unknown ETOH Use Denies alcohol use Tobacco Use Start: Unknown End: Unknown Patient is a former smoker Smoking Status Reviewed: 09/07/18 Patient is a former smoker Allergies, Adverse Reactions, Alerts Description No Known Drug Allergies Medications Medication Date Status Form Strength Qnty SIG Indications Ordering Provider Lantus 11/20/ Active Solution 100Unit/ML 70 U Lino Tate inBID is MD Rafiq Docusate Sodium / Active Capsules 100mg Unknown 0000 Ergocalciferol / Active Capsules [id number] 8caps 1 by Unknown 0000 mouth weekly Oxycodone-Acetami / Active Tablets 5-325mg Unknown nophen 0000 Lisinopril / Active Tablets 20mg 1 by Unknown 0000 mouth every day Metformin HCL / Active Tablets 1000mg take one Unknown 0000 tablet by mouth twice a day Lyrica / Active Capsules 50mg Unknown 0000 Chantix / Active Tablets 1mg Unknown 0000 Simvastatin 11/20/ Hx Tablets 40mg hs Lino Ng 2011 Rafiq, 2018 Zoloft 11/20/ Hx Tablets 50mg Lino Ng 2011 Sharath Conroy, 2018 Bystolic 11/20/ Hx Tablets 5mg Lino Ng 2011 Rafiq, 2018 Lisinopril/Hydroc 11/20/ Hx Tablets 20-12.5mg Lino Ng hlorothiazide 2011 Rafiq, 2018 Immunizations Description No Information Available Vital Signs Date Vital Result Comment 09/07/2018 2:14pm Height 67.50 inches 5'7.50" Weight 148.00 lb BP Systolic 127 mmHg BP Diastolic 81 mmHg Heart Rate 80 /min BMI (Body Mass Index) 22.8 kg/m2 05/07/2012 3:20pm Height 67.50 inches 5'7.50" Weight 312.00 lb BP Systolic 140 mmHg BP Diastolic 90 mmHg Heart Rate 68 /min BMI (Body Mass Index) 48.1 kg/m2 04/23/2012 2:06pm Height 67.50 inches 5'7.50" Weight 311.00 lb BP Systolic 128 mmHg BP Diastolic 80 mmHg BP Systolic Recheck 100 mmHg BMI (Body Mass Index) 48.0 kg/m2 11/21/2011 12:59pm Height 67.50 inches 5'7.50" Weight 307.00 lb BP Systolic 138 mmHg BP Diastolic 82 mmHg Heart Rate 66 /min BMI (Body Mass Index) 47.4 kg/m2 Results Test Date Facility Test Result H/L Range Note Laboratory test 08/31/2018 [facility] Surgical SEE RESULT 1 finding Interface Order BELOW Xray 08/30/2018 [facility] Radiology CT, Abd & Pelvis <pending> W/ Contrast Surgical 12/13/2011 [facility] Surgical 2 Pathology Pathology ---- <SEE NOTE> Clotest 12/13/[address] [facility] 3 ---- <SEE NOTE> 1 SEE RESULT BELOW Name: TAZ REYNOLDS : [address]: Teresa Vides MD Acct: [id number] Unit: [id number] AGE: 48 Location: [place] [address]- Re08/30/18 Dis: 09/01/18 SEX: M Status: DIS Fatimah SPEC: [id number] JACKSON: 08/31/18-[address] [facility] [address]: Shravan Hannon DO REQ: [id number] RECD: 08/31/188474 STATUS: SHAN MARQUIS DR: Teresa Mcclendon MD _ ORDERED: LEVEL 4 FINAL DIAGNOSIS Gastric body at anastomotic site, biopsy: -- Gastric fundic gland mucosa with mild chronic inflammation and foveolar hyperplasia. -- No goblet cell/intestinal metaplasia or dysplasia identified. -- No active gastritis identified. CLINICAL HISTORY Epigastric pain POST-OPERATIVE DIAGNOSIS EGD: esophagus - normal; gastric - pouch at 34 - 40 cm; normal; biopsy to rule out H. Pylori; anastomosis; mild nodularity with erythema GROSS DESCRIPTION The specimen is received in formalin labeled, Biopsy Anastomosis, and consists of a 0.3 x 0.3 x 0.2 cm fishman-pink irregular soft tissue fragment which is submitted entirely in one cassette. Signed by and Reported on: Wild Alves MD 1245 END OF REPORT DEPARTMENT OF PATHOLOGY, [address] [place] [address] Wild Alves M.D. Director [facility] # [id number] 2 --- RUN DATE: 12/14/11 [facility] LIVE PAGE 1 RUN TIME: 1402 Specimen Inquiry RUN USER: INTERFACE -- Name: GAILTAZ Status: REG REF Re12/13/11 Age/Sex: 41/M Unit#: [id number] Location: END : [birth year] -- Specimen: [id number] SOUT Spec Date:12/13/11 Dr: Lino Conroy MD Spec Type: SURGICAL P Received:12/13/11-1211 Copies to: Mac Barbosa [facility] SPECIMEN BIOPSY THICKENED FOLD THIRD PORTION DUODENUM HISTORY POST-OP DIAGNOSIS: Loose hiatus, otherwise normal. CLINICAL INFORMATION: Chest pain. GROSS DESCRIPTION The specimen is received in formalin labelled Taz Reynolds, Biopsy Thickened Area Third Portion Duodenum, and consists of two fragments of pink tissue each measuring 0.3 x 0.3 x 0.3 cm. Submitted entirely, one cassette. DIAGNOSIS Third portion of duodenum, thickened fold, biopsy: Duodenal mucosa with focal preserved villous architecture and focally mild blunting of the villi with reactive changes and a mild increased number of inflammatory cells within the lamina propria. Signed Electronically by: CIRO HERNANDEZ 12/14/11 1402 -- -- DEPARTMENT OF PATHOLOGY, [address] [place] [address] [facility] Permit #[id number] Wild Alves M.D. Director Ciro Hernandez M.D. Gauge Inspector Dir gerardo -- 3 RUN DATE: 12/14/11 [facility] NMI LIVE PAGE 1 RUN TIME: 726 Specimen Inquiry RUN USER: INTERFACE Name: TAZ REYNOLDS Status: REG REF Re12/13/11 Age/Sex: 41/M Unit#: [id number] Location: [facility] : 72 SPEC #: [id number] JACKSON: 12/13/11 STATUS: IBAN REQ #: [id number] RECD: 12/13/[address] [facility] [address]: Lino Conroy MD SOURCE: CLOTEST ENTR: 12/13/11 [facility] [address]: Danelle WAGONER,Mac Jean SPDESC: Kianna RUSSELL, Vandana ORDERED: CLOTEST ACT WKST: MISC 12/14/11 #1 Procedure Result Verified Site > CLOTEST Final 12/14/11- 725 ML CLOTEST NEGATIVE ML - [facility] State Permit #[id number] [address] [place] [address] DEPARTMENT OF PATHOLOGY, [address] [place] [address], [place] [address] [facility] Permit #[id number] Wild Alves M.D. Director Ciro Hernandez M.D. 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 Office Visit 04/23/2012 [facility], 569.3 Hemorrhage 2:00p [facility] MACHINE [employer]-C Rectum & Anus 569.42 Pain Anal Or Rectal Office Visit 11/21/2011 1:00p Gastroenterology Lino Ng 786.50 Pain Chest [facility] MD Rafiq Unspec 278.01 Obesity Morbid 564.1 Irritable Bowel Syndrome 250.00 Diabetes Mellitus W/O Compl Type II Or Unspec Controlled Plan of Treatment Future Appointment(s):10/08/2018 1:00 pm - Shravan Hannon DO at Gastroenterology [facility]09/07/2018 - [facility]74.0 Nonspecific elevation of levels of transaminase and lactic acid dehydrogenase [ LDH]New Xrays:MRI,MRCP, W/O Contrast (45526), Ordered: 09/07/18K59.03 Drug induced [id number] Pain, unspecified
--- OUTSIDE RECORDS SUMMARY | 2018-09-13 09:54 | XMS REPORT | Continuity of Care Document ---
:1970 External Reference #:[id number] Author Name Nora Paz Care Team Providers Name Role Phone Vandana Hutchison FNP Primary Care Physician Unavailable Payers Type Date Identification Numbers Payment Provider Subscriber Expires: 2018 Policy Number: [id number] Noé Jackson Group Number: [id number] [address] PayID: [id number] [place] [address] Policy Number: [id number] BS Of TORRIE Taz Gordillo Manuel PayID: [id number] [address] [address] [place] [address] Advance Directives Description No Information Available Problems Description No Information Family History Date Family Member(s) Problem(s) Comments Father Diabetes Type II Mother Breast Cancer Mother TIA Siblings 6 diabetes, cardiac-fluid around heart, shingles, Social History Type Date Description Comments Sex Unknown Marital Status Lives With Mother 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 ETOH Use Denies alcohol use Tobacco Use Start: Unknown End: Patient is a former quit since Aug 2018 Unknown smoker Recreational Drug Use Denies Drug Use Smoking Status Reviewed: 09/06/18 Patient is a former quit since Aug 2018 smoker Exercise Type/Frequency Exercises sporadically sporatic Allergies, Adverse Reactions, Alerts Description No Information Medications Medication Date Status Form Strength Qnty SIG Indications Ordering Provider Lantus Solostar 09/06 Active Solution 100Unit/M 15ml 18-36 units E11.65 Balbuena Pen-Injec L daily SC at MD stefani Adams hour of sleep, dispense 15ml/month Fiasp Flextouch 09/06 Active Solution 100Unit/M 15ml 6-12 units E11.65 Balbuena Pen-Injec L with meals MD Angie t based on carbohydrate intake, dispense 5 pens, 15ml Insulin 09/06 Active Misc 31G X 200un use 4-6 times E11.65 Balbuena Syringe/0.5ML/ 516" 0.5 its daily MD Angie G X 516" ML Docusate Sodium Active Capsules 100mg 1 tab every Unknown /0000 12 hours as needed for constipation Ergocalciferol Active Capsules 77420Wpbw 14cap one capsule Balbuena s every week MD Angie Oxycodone-Acetam Active Tablets 5-325mg 1-2 by mouth Unknown inophen /0000 every 4-6 hours as needed for post-op pain. max 10 per day Lisinopril Active Tablets 20mg 1 by mouth Unknown /0000 every day Metformin HCL ER Active Tablets 1000mg 1 by mouth Unknown (Mod) ER 24HR twice a day Lyrica Active Capsules 50mg 1 by mouth Unknown three times daily Chantix Active Tablets 1mg 1 mg twice a day Insulin Active Misc 30G X 1 syringe Unknown Syringe/0.3ML/12/27" 0.3 once daily; G X 516" ML substitution okay Vitamin D-3 Active Capsules 1000Unit 1 by mouth Unknown / every day Basaglar Kwikpen 09/06 Hx Solution 100Unit/M 15ml 15 units Pen-Injec L daily MD Angie - t 09/06 Miralax Hx Powder 17 grams by Unknown /0000 mouth every - day as needed 09/02 Immunizations Description No Information Available Vital Signs Date Vital Result Comment 09/06/2018 1:08pm Height 67 inches 5'7" Weight 156.00 lb w/ boots Heart Rate 90 /min BP Systolic Sitting 143 mmHg BP Diastolic Sitting 84 mmHg BMI (Body Mass Index) 24.4 kg/m2 Results Test Date Facility Test Result H/L Range Note Laboratory test 09/06/2018 [facility] Glucose Random 328 finding Laboratory test 08/31/2018 [facility] Surgical SEE RESULT [address] [place] [address] [phone] 1 SEE RESULT BELOW Name: TAZ JACKSON : [address]: Teresa Vides MD Acct: [id number] Unit: [id number] AGE: 48 Location: [place] [address] Re08/30/18 Dis: 09/01/18 SEX: M Status: DIS Fatimah SPEC: [id number] JACKSON: 08/31/18-1208 [facility] DR: Shravan Hannon DO REQ: [id number] RECD: 08/31/18 STATUS: SHAN MARQUIS DR: Teresa Mcclendon MD [...] 1245 END OF REPORT DEPARTMENT OF PATHOLOGY, [address] [place] [address] Wild Alves M.D. Director [facility] # [id number] Procedures Date Code Description Status 04/24/2013 56651 EKG, Interpretation Only Completed Encounters Type Date Location Provider Dx Diagnosis Office Visit 09/01/2018 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 abdominal pain Hospitalists E11.9 Type 2 diabetes mellitus without complications I10 Essential (primary) hypertension Office Visit 06/05/2015 [facility] John Chand, E11.649 Type 2 diabetes 10:38a josh Blanchard M.D. mellitus with Hospitalists hypoglycemia without coma F32.9 Major depressive disorder, single episode, unspecified R56.9 Unspecified convulsions Office Visit 05/10/2013 [facility] Marcos 272.2 Hyperlipidemia Mixed 11:15a Assoc,pc Steven Florence Hospitalists 250.02 Diabetes Mellitus W/O Compl Type II Or Unspec Type Uncontrol 401.9 Hypertension Unspec V45.86 Bariatric Surgery Status Office Visit 05/09/2013 11:14a [facility] Marcos 250.02 Diabetes Assoc,pc Naman N.Dyu. Mellitus W/O Hospitalists Compl Type II Or Unspec Type Uncontrol 272.2 Hyperlipidemia Mixed 401.9 Hypertension Unspec V45.86 Bariatric Surgery Status Office Visit 05/08/2013 11:14a [facility] Marcos 250.02 Diabetes Assoc,josh Florence N.Duy. Mellitus W/O Hospitalists Compl Type II Or Unspec Type Uncontrol 272.2 Hyperlipidemia Mixed V45.86 Bariatric Surgery Status Office Visit 05/07/2013 11:13a [facility] Guero 250.02 Diabetes Assoc,josh Laws NLaurie. Mellitus W/O Hospitalists Compl Type II Or Unspec Type Uncontrol 401.9 Hypertension Unspec 272.2 Hyperlipidemia Mixed V45.86 Bariatric Surgery Status Plan of Treatment Future Appointment(s):12/04/2018 9:20 am - Sree Adams MD at [facility]09/06/2018 - Sree Adams MDE11.65 Type 2 diabetes mellitus with hyperglycemiaNew Medication:Lantus Solostar 100 Unit/ML - 18-36 units daily SC at hour of sleep, dispense 15ml/monthFiasp Flextouch 100 Unit/ML - 6-12 units with meals based on carbohydrate intake, dispense 5 pens, 15mlInsulin Syringe/0.5ML/31G X 5/16" 31 G X 5/16" 0.5 ML - use 4-6 times dailyFollow up:3 monthsInstructions:1. Start ergocalciferol 50,000 units weekly for next 10-14 weeks. 2. Start calcium supplement as directed by overedger. 3. Change Lantus insulin to Solostar Pen at 18 units at bedtime. 4. Start Fiasp insulin 1 unit per 10g carbohydrates consumed. 5. Return in 1 month for routine lab tests. 6. Send PDF of the Mojix data by email. 7. Collect stool sample for 72 hours. 8. Return in 3 months.E83.51 Hypocalcemia
--- NOTE | 2018-09-13 10:43 | ED ---
GI/ HPI - HPI Summary HPI Summary: This patient is a 48 y/o male who presents to [facility] with a chief complaint of abdominal pain since 08/30/18. He rates his pain as a 10/10 in severity. He claims that his abdominal pain is radiating to his hip and back. He reports that he has chronic back pain but that his pain was more severe around . 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 He reports that he has not had a BM since before 08/30/18. The patient claims that was admitted to [facility] on 08/30/18 for four days. He reports the CT and MRI were normal. He was then given pain medication and laxatives. He has not been eating since the morning of 09/13/18 because it would make him nauseous, but reports that he was able to eat before then. He called [facility], who suggested coming into the ED. Dr. Hannon The patient also reports seeing Dr. Garcia, urologist, because he has had difficulty urinating. On 09/13/18 he reports that he was able to urinate in the morning but there was not much force, just felt like it was being drained. He reports a TURP procedure done and he had an appointment with Dr. Garcia on . His mother also reports that he has a SHx of Gastric bypass - History of Current Complaint Chief Complaint: EDAbdPain Time Seen by Provider: 09/13/18 09:52 Stated Complaint: GROIN BACK AND HIP PAIN ABD PAIN Hx Obtained From: Patient, Family/Insurance Risk Surveyor Onset/Duration: Started Weeks Ago, Still Present Timing: Constant, Lasting Weeks Severity: Severe Current Severity: Severe Pain Intensity: 10 - out of 10 Location of Pain: Other - across abdomen radiating to hips and back Pain Characteristics: Unable to describe Pain Radiates to: Back Associated Signs and Symptoms: Positive: Nausea, Constipation, Dysuria, Abdominal Pain. Negative: Fever - Additional Pertinent History Primary Care Physician: [id number] - Allergy/Home Medications Allergies/Adverse Reactions: Allergies Allergy/AdvReac Type Severity Reaction Status Date / Time No Known Allergies Allergy Verified 09/13/18 12:23 Home Medications: Home Medications Insulin GLARGINE(*) [Lantus(*)] 18 units SUBCUT Q24H 09/13/18 [History Confirmed 09/13/18] Insulin LISPRO* [HumaLOG*] 1 unit SUBCUT SEE INSTRUCTIONS 09/13/18 [History Confirmed 09/13/18] PMH/Surg Hx/FS Hx/Imm Hx Endocrine/Hematology History: Reports: Hx Diabetes Denies: Hx Thyroid Disease Cardiovascular History: Reports: Hx Cardiomegaly - STATED NOTED AFTER ROUTINE XRAY YEARS AGO-NO PROBLEMS, Hx Hypertension Denies: Hx Congestive Heart Failure, Hx Pacemaker/ICD, Other Cardiovascular Problems/Disorders Respiratory History: Reports: Hx Sleep Apnea, Other Respiratory Problems/ Disorders - bipap at night Denies: Hx Asthma, Hx Chronic Obstructive Pulmonary Disease (COPD) GI History: Reports: Hx Gall Bladder Disease - gall bladder removal, Hx Irritable Bowel, Other GI Disorders - gastric bypass, incontinence Denies: Hx Ulcer History: Denies: Hx Renal Disease Sensory History: Reports: Hx Contacts or Glasses Denies: Hx Hearing Aid Opthamlomology History: Reports: Hx Contacts or Glasses Neurological History: Reports: Hx Headaches - OCCASIONAL, Hx Nerve Disease - DIABETIC NEUROPATHY, Hx Seizures, Other Neuro Impairments/Disorders - OCCASIONAL NUMB FINGERS DUE TO LYMPH NODE SWELLING BILATERAL ARMPITS Psychiatric History: Reports: Hx Anxiety - ON MEDS, Hx Depression Denies: Hx Panic Disorder - Surgical History Surgery Procedure, Year, and Place: GALL BLADDER REMOVED,. bariatric surgery ( April 2013). Nasal Surgery. Knee surgery. Tonsillectomy. TERP Hx Anesthesia Reactions: No - Immunization History Date of Tetanus Vaccine: unknown Date of Influenza Vaccine: 2013 Infectious Disease History: No Infectious Disease History: Denies: Hx Hepatitis, Hx Human Immunodeficiency Virus (HIV), Traveled Outside the [place] in Last 30 Days - Family History Known Family History: Negative: Respiratory Disease, Seizure Disorder - Social History Alcohol Use: None Substance Use Type: Reports: None Hx Tobacco Use: Yes Smoking Status (MU): Former Smoker Type: Cigarettes Amount Used/How Often: on and off for years Have You Smoked in the Last Year: Yes Review of Systems Negative: Fever Positive: Abdominal Pain - radiating to back and hips, Nausea, Other - Positive : constipation Positive: other - positive: difficulty urinating Positive: Other - Positive: back and hip pain radiating from abdomen All Other Systems Reviewed And Are Negative: Yes Physical Exam - Summary Physical Exam Summary: Appearance: The patient is well-nourished in no acute distress and in no acute pain. Skin: The skin is warm and dry and skin color reflects adequate perfusion. HEENT: The head is normocephalic and atraumatic. The pupils are equal and reactive. The conjunctivae are clear and without drainage. Nares are patent and without drainage. Mouth reveals moist mucous membranes and the throat is without erythema and exudate. The external ears are intact. The ear canals are patent and without drainage. The tympanic membranes are intact. Neck: The neck is supple with full range of motion and non-tender. There are no carotid bruits. There is no neck vein distension. Respiratory: Chest is non-tender. Lungs are clear to auscultation and breath sounds are symmetrical and equal. Cardiovascular: Heart is regular rate and rhythm. There is no murmur or rub auscultated. There is no peripheral edema and pulses are symmetrical and equal. Abdomen: The abdomen is soft and non-tender. There are normal bowel sounds heard in all four quadrants and there is no organomegaly palpated. Musculoskeletal: There is no back tenderness noted. Extremities are non-tender with full range of motion. There is good capillary refill. There is no peripheral edema or calf tenderness elicited. Neurological: Patient is alert and oriented to person, place and time. The patient has symmetrical motor strength in all four extremities. Cranial nerves are grossly intact. Deep tendon reflexes are symmetrical and equal in all four extremities. Psychiatric: The patient has an appropriate affect and does not exhibit any anxiety or depression. Triage Information Reviewed: Yes Vital Signs On Initial Exam: Initial Vitals Temp Pulse Resp BP Pulse Ox 97.4 F 81 18 170/95 99 09/13/18 09:43 09/13/18 09:43 09/13/18 09:43 09/13/18 09:43 09/13/18 09:43 Vital Signs Reviewed: Yes Diagnostics - Vital Signs Vital Signs Temp Pulse Resp BP Pulse Ox 09/13/18 10:00 76 98 09/13/18 09:54 78 98 09/13/18 09:53 77 164/99 99 09/13/18 09:43 97.4 F 81 18 170/95 99 - Laboratory Result Diagrams: 09/13/18 11:08 09/13/18 11:08 Lab Statement: Any lab studies that have been ordered have been reviewed, and results considered in the medical decision making process. - Radiology abdomen x-ray Radiology Interpretation Completed By: Radiologist Summary of Radiographic Findings: NONSPECIFIC BOWEL GAS PATTERN. LARGE AMOUNT OF STOOL THROUGHOUT THE COLON. ED physician has reviewed this imaging report. - CT abdomen/pelvis CT Interpretation Completed By: Radiologist Summary of CT Findings: 1. AGAIN NOTED IS MUCOSAL THICKENING OF THE DISTAL ESOPHAGUS. 2. THERE IS MILD PERINEPHRIC STRANDING BILATERALLY WHICH MAY INDICATE THE PRESENCE OF AN UPPER URINARY TRACT INFECTION. 3. MILD PERIPORTAL EDEMA. 4. LARGE AMOUNT OF STOOL THROUGHOUT THE COLON. 5. NO OBSTRUCTION. ED physician has reviewed this imaging report. Re-Evaluation - Re-Evaluation First Eval Re-Evaluation Time: 14:08 Change: Improved Comment: Patient reports feeling OK. GIGU Course/Dx - Course Course Of Treatment: Mr. Jackson presented with back and abdominal pain that has been going on for several weeks. It got quite a bit worse today and he contacted Dr. Hannon's office who recommended coming to the emergency department. He had diffuse abdominal tenderness without rebound. He was nontoxic in appearance with stable vitals. He was complaining of not having moved his bowels since the which is 2 weeks. Labs were obtained which were unremarkable and plain film showed no sign of obstruction. He just had a CT scan when he was admitted from the to the for the same pain. I spoke with Dr. Alexis who spoke with Dr. Mcclendon who recommended repeating the CT scan. Dr. Grubbs did come to the department to evaluate the patient after CT scan and admitted him to the hospital. There was a concern on the CT scan for possible internal hernia. - Diagnoses Provider Diagnoses: Abdominal pain, Constipation - Physician Notifications Discussed Care Of Patient With: Michael Alexis Time Discussed With Above Provider: 16:13 Instructed by Provider To: MD Will See In ED Discharge - Sign-Out/Discharge Documenting (check all that apply): Patient Departure - admit Patient Received Moderate/Deep Sedation with Procedure: No - Discharge Plan Condition: Fair Disposition: ADMITTED TO [facility] Referrals: Sanford Jamison DO [Primary Care Provider] - - Billing Disposition and Condition Condition: FAIR Disposition: Admitted to [facility] - Attestation Statements Document Initiated by Scribe: Yes Documenting Scribe: Brett Johnson Provider For Whom Scribe is Documenting (Include Credential): Farhan Pham MD Scribe Attestation: I, Brett Johnson, scribed for Farhan Pham MD on 09/13/18 at 1831. Scribe Documentation Reviewed: Yes Provider Attestation: The documentation as recorded by the scribe, Brett Johnson accurately reflects the service I personally performed and the decisions made by me, Farhan Pham MD Status of Scribe Document: Viewed Consult Consult: At 16:[address] Alexis, surgery, who accepted the patient for admission.
[2018-09-13 11:14] LABS: ABS Basophils 0.1 10^3/ul (0-0.2); ABS Eosinophils 0.1 10^3/ul (0-0.6); ABS Lymphocytes 1.3 10^3/ul (1.0-4.8); ABS Monocytes 0.8 10^3/ul (0-0.8); ABS Neutrophils 3.4 10^3/ul (1.5-7.7); ABS Nucleated RBC 0 10^3/ul; Eosinophil % 1.1 %; Hematocrit 36 % (42-52); Hemoglobin 12.2 g/dl (14.0-18.0); Lymphocyte % 23.3 %; Mean Corpuscular HGB Conc 34 g/dl (31-36); Mean Corpuscular Hemoglobin 30 pg (27-31); Mean Corpuscular Volume 88 fL (80-94); Mean Platelet Volume 7.1 fL (7.4-10.4); Nucleated Red Blood Cells % 0; Platelet Count 299 10^3/ul (150-450); Red Blood Count 4.05 10^6/ul (4.00-5.40); Red Cell Distribution Width 12 % (10.5-15); White Blood Count 5.7 10^3/ul (3.5-10.8)
[2018-09-13 11:34] LABS: Albumin 2.6 g/dL (3.2-5.2); Albumin/Globulin Ratio 1.1 (1-3); BUN/Creatinine Ratio 44.8 (8-20); C Reactive Protein 5.83 mg/L (<8.01); EGFR African American 153.8 (>60); EGFR Non-African American 127.1 (>60); Globulin 2.4 g/dL (2-4); Potassium 4.5 mmol/L (3.5-5.0); Total Bilirubin 0.3 mg/dL (0.2-1.0)
[2018-09-13 11:35] LABS: Troponin I 0.01 ng/mL (<0.04)
[2018-09-13] MEDS ORDERED: HYDROmorphone INJ1* 1 MG/ML SYRINGE IV SLOW PU ONE (12:27)
[2018-09-13] MEDS ORDERED: Ondansetron INJ* 2 MG/ML VIAL IV ONE (12:27)
[2018-09-13] MEDS ORDERED: Iodixanol* (CONTRAST) 320 MG/ML 100 ML SDV IV ONE (14:36)
[2018-09-13] MEDS ORDERED: Dextrose 50% Syringe 50 ML* 25 GM/50 ML SYRINGE IV PUSH ONE (16:25)
[2018-09-13] MEDS ORDERED: Dextrose 50% Syringe 50 ML* 25 GM/50 ML SYRINGE ONE (16:26)
[2018-09-13] MEDS ORDERED: Lactated Ringers 1000 ML Bag* 1,000 ML IV SCH (17:00)
[2018-09-13] MEDS ORDERED: Mineral Oil ENEMA* 1 BOTTLE PR ONE (17:16)
[2018-09-13] MEDS: HYDROmorphone INJ1* 1 MG/ML SYRINGE IV SLOW PU PRN ×3 (17:25→23:30)
[2018-09-13] MEDS: D5LR 1000 ML BAG* 1,000 ML IV SCH (18:48)
[2018-09-13] MEDS: Insulin LISPRO* 1 UNITS UNIT SUBCUT SCH ×2 (18:55→22:03)
--- NOTE | 2018-09-13 19:29 | HP ---
CC: Dr. Michael Alexis; Dr. Sree Adams; Dr. Shravan Hannon * INTERVAL UPDATE HISTORY AND PHYSICAL FOLLOWUP: DATE OF ADMISSION: 09/13/18 Note: This is an interval update history and physical followup after his admission of 08/30/18. CHIEF COMPLAINT: Abdominal pain. HISTORY OF PRESENT ILLNESS: Mr. Jackson is a 48-year-old male status post cholecystectomy and Young-en-Y gastric bypass in 2012, who started to have abdominal pain somewhere between [place] and . 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 He says he was seen in the emergency room in [place] sometime in early August and then came back here and presented to the emergency room on 08/30/18. He was discharged a few days later and was following up with his creative director and his fund accountant as an outpatient, but then the pain became severe and he presented here this afternoon. He has not had fever or chills. The pain currently is across the upper abdomen and into the left back. He also states he has pain running down his hips and legs to his feet and nerve pain going down to his feet. PAST MEDICAL HISTORY: Unchanged from the admission 2 weeks ago. MEDICATIONS: Unchanged from previous. ALLERGIES: Unchanged from previous. 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 He is an on and off smoker. He has quit multiple times. REVIEW OF SYSTEMS: Significant for the gastrointestinal symptoms as noted above and then the pain radiating down into legs as noted above. PHYSICAL EXAMINATION GENERAL: He is a well-developed, well-nourished gentleman. Does not appear acutely ill. VITAL SIGNS: Show a temperature of 99.6, pulse 75 and regular, respirations 18 and unlabored, O2 saturation 98% on room air, blood pressure is 155/87. He is 5 feet 7 inches, 150 pounds with a BMI of 23. NECK: Supple without any adenopathy. LUNGS: Breathing is easy and unlabored with no abnormal sounds. HEART: Regular. No abnormal sounds. ABDOMEN: Nondistended, soft, tender across the upper abdomen and into the left upper quadrant. No peritonitis or guarding or rebound tenderness. No obvious hernias. EXTREMITIES: Well perfused. There is no edema. He does have soreness in his lower legs and feet, but no obvious source. SKIN: Warm, well perfused. He is not diaphoretic. He is not jaundiced. DIAGNOSTIC STUDIES/LAB DATA: Laboratory studies show normal white count. Hemoglobin of 12.2, differential is normal. Electrolytes are relatively normal. Liver chemistries are elevated. Lipase is normal. Albumin is mildly decreased at 2.6. He has had an abdominal film which shows a fair amount of stool in the colon consistent with his history of not having moved his bowels much in the last 2 weeks. Also, he has had a CT scan of the abdomen which shows dilation of the gastric remnant with some air in the gastric remnant and what appears to me to be a partial obstruction or intussusception at the jejunojejunal anastomosis in the left upper quadrant. Contrast goes through the alimentary limb, well through the small bowel. He has a fair amount of stool in the colon. IMPRESSION: A 48-year-old male status post Young-en-Y gastric bypass 5 years ago , now with a month of abdominal pain which appears to be due to an obstruction of the biliopancreatic limb. I have discussed this with Dr. Mcclendon of bariatric service and he will be admitted to the hospital, kept n.p.o., given hydration and analgesia and plan is for Dr. Mcclendon to take him to the operating room tomorrow for laparoscopy to assess for obstruction of the biliopancreatic limb. [id number]/[facility]PS #: [id number] MTDD
--- NOTE | 2018-09-13 19:54 | CONS ---
CC: Dr. Michael Alexis; Ximena Fitch NP; Dr. Sree Adams * CONSULTATION REPORT: DATE OF CONSULT: 09/13/18. REQUESTING PHYSICIAN: Dr. Michael Aelxis. PRIMARY CARE PROVIDER: Ximena Fitch NP. TREAD BOOKER: Dr. Sree Adams. REASON FOR CONSULT: Diabetes management. HISTORY OF PRESENT ILLNESS: Mr. Jackson is a 48-year-old male with a past medical history of type 2 diabetes, depression, obesity, status post Young-en-Y in 2012, hyperlipidemia, hypertension, who presented to the emergency room with complaints of abdominal pain. He was admitted to [facility] on 08/30/18 with complaints of abdominal pain. He had a workup that included a negative CT of the abdomen and also an upper endoscopy where there were no acute findings to justify his pain. He also had mild elevation of transaminitis of clear etiology at that point. The patient was discharged to continue his workup and follow up as outpatient and he actually had been seen by Dr. Alexis and presented to the emergency room today with complaints of abdominal pain. As per Dr. Alexis's report, he suspects the patient has an obstruction of the biliopancreatic limb of his Young-en-Y and he is planning to do a laparoscopy tomorrow to correct this issue. The hospitalist service was consulted to assist with perioperative management. PAST MEDICAL HISTORY: 1. Type 2 diabetes. 2. Depression. 3. Obesity, status post Young-en-Y in 2012 with weight loss greater than 200 pounds. 4. Hyperlipidemia. 5. Hypertension. 6. Status post cholecystectomy. 7. Status post septoplasty for deviated septum. MEDICATION LIST: 1. Colace 100 mg p.o. b.i.d. 2. Ergocalciferol 50,000 units p.o. weekly. 3. Lantus 18 units subcutaneously daily. 4. Lispro 1 unit for every 10 g of carbs with meals. 5. Lisinopril 20 mg p.o. daily. 6. Metformin 1000 mg p.o. b.i.d. 7. Percocet 5/325 mg 1 tablet p.o. q.4 hours p.r.n. pain. 8. MiraLAX 17 g p.o. daily. 9. Lyrica 50 mg p.o. t.i.d. 10. Chantix 1 mg p.o. b.i.d. ALLERGIES: No known drug allergies. FAMILY HISTORY: Mother had a history of TIA and breast cancer. Father had diabetes and pancreatitis. SOCIAL HISTORY: The patient has a history of tobacco abuse, has quit multiple times and is now on Chantix again. No history of alcohol or drug use. Surrogate decision maker is his mother, Manuel, phone number is [phone]. REVIEW OF SYSTEMS: A 14-point review of systems was performed and all the pertinent negative and positive findings are in the HPI. PHYSICAL EXAM: Vital Signs: Temperature 99.6, heart rate is 77, respiratory rate is 18, oxygen saturation is 100% on room air, blood pressure is 150/90. General: The patient is a pleasant middle-aged gentleman, lying in the ED stretcher, in no acute distress. HEENT: Pupils are equal. Moist mucous membranes. CVS: Normal S1, S2. Regular rate and rhythm. Chest: Breath sounds present bilaterally with no added sounds. Abdomen is soft with mild diffuse tenderness. No guarding, no rebound. Bowel sounds are present. Neuro : He is alert and oriented x3. Able to move all 4 extremities. LABORATORY/IMAGING DATA: The patient had a CBC that showed WBC of 5.7, hemoglobin of 12.2, hematocrit of 36, platelets of 299,000. Chemistry showed a sodium of 136, potassium 4.5, chloride of 102, bicarb of 32, anion gap of 2, BUN of 30, creatinine of 0.6, glucose is 101, lactic acid is 1.7. LFTs showed a total bilirubin of 0.3, AST 69, ALT is 101, alk phos is 314, lipase is 56. CT of the abdomen and pelvis was read as mucosal thickening of the distal esophagus, mild perinephric stranding bilaterally, mild periportal edema, large amount of stool throughout the colon and no obstruction, but Dr. Alexis believes that there is obstruction of the biliopancreatic limb that would justify his abdominal pain and transaminitis. ASSESSMENT AND PLAN: Mr. 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 The hospitalist service was consulted to help assist with perioperative management of his comorbidities. The patient has no complaints of chest pain, palpitations, or shortness of breath and he has good exercise capacity. His EKG done on 08/30/18 showed sinus rhythm at 77 beats per minute with a left anterior fascicular block and no acute ischemic changes and no significant change when compared to his prior EKG from 2014. The patient's RCRI is 1 (diabetes requiring insulin) predicting a risk of cardiac complications of 1% to 1.3%. The patient is optimized for postprocedure. Regarding his diabetes, as the patient is n.p.o., we are going to cut his Lantus dosing half and he will have low dose lispro sliding scale. The patient has a byyd Presley monitor and he requests to continue to use it, so he does not have to do fingersticks. He is n.p.o. now in preparation for surgery, but when he is able to eat, we will return him to his usual dose of Lantus and his carb counting lispro sliding scale. Thank you very much for this consultation. The hospitalist service will continue to follow the patient with you. TIME SPENT: Approximately 45 minutes were spent with patient and mother interview, medical records review, physical examination to complete this consultation, more than half of this time was spent [id number] with the patient and coordination of care. [id number]/[facility] #: [id number] SANYA
[2018-09-13] MEDS: Ketorolac INJ* 30 MG/ML 1 ML VIAL IV PRN (20:28)
[2018-09-13] MEDS ORDERED: Pregabalin CAP(*) 50 MG PO SCH (21:00)
[2018-09-13] MEDS ORDERED: Insulin GLARGINE(*) 1 UNITS UNIT SUBCUT SCH (21:00)
[2018-09-13] MEDS ORDERED: Dextrose 50% VIAL 50 ml IV PRN (21:43)
[2018-09-13] MEDS ORDERED: Dextrose 50% Syringe 50 ML* 25 GM/50 ML SYRINGE IV PUSH PRN (23:00)
[2018-09-14] MEDS: HYDROmorphone INJ1* 1 MG/ML SYRINGE IV SLOW PU PRN ×13 (00:31→23:00)
[2018-09-14 00:42] LABS: Urine Appearance Clear; Urine Bacteria Absent (Absent); Urine Bilirubin Negative (Negative); Urine Blood Negative (Negative); Urine Color Yellow; Urine Glucose 1+(50 mg/dL) (Negative); Urine Ketones Negative (Negative); Urine Nitrite Negative (Negative); Urine Protein 2+(100 mg/dL) (Negative); Urine Red Blood Cell Trace(0-2/hpf) (Absent); Urine Specific Gravity 1.021 (1.010-1.030); Urine Urobilinogen Positive (Negative); Urine White Blood Cell Trace(0-5/hpf) (Absent)
[2018-09-14] MEDS: D5LR 1000 ML BAG* 1,000 ML IV SCH ×2 (02:30→09:21)
[2018-09-14] MEDS: Ketorolac INJ* 30 MG/ML 1 ML VIAL IV PRN ×4 (02:36→23:55)
[2018-09-14] MEDS: Insulin LISPRO* 1 UNITS UNIT SUBCUT SCH ×6 (02:39→22:00)
[2018-09-14] MEDS ORDERED: HYDROmorphone INJ1* 1 MG/ML SYRINGE IV ONE ×2 (06:45→23:25)
[2018-09-14 06:47] LABS: ABS Basophils 0 10^3/ul (0-0.2); ABS Eosinophils 0.1 10^3/ul (0-0.6); ABS Lymphocytes 1.1 10^3/ul (1.0-4.8); ABS Monocytes 0.6 10^3/ul (0-0.8); ABS Neutrophils 2.5 10^3/ul (1.5-7.7); ABS Nucleated RBC 0 10^3/ul; Eosinophil % 2.4 %; Hematocrit 35 % (42-52); Hemoglobin 12.2 g/dl (14.0-18.0); Lymphocyte % 24.9 %; Mean Corpuscular HGB Conc 35 g/dl (31-36); Mean Corpuscular Hemoglobin 31 pg (27-31); Mean Corpuscular Volume 88 fL (80-94); Mean Platelet Volume 7.8 fL (7.4-10.4); Nucleated Red Blood Cells % 0.2; Platelet Count 276 10^3/ul (150-450); Red Blood Count 3.99 10^6/ul (4.00-5.40); Red Cell Distribution Width 12 % (10.5-15); White Blood Count 4.4 10^3/ul (3.5-10.8)
[2018-09-14 07:05] LABS: BUN/Creatinine Ratio 38.5 (8-20); Calcium 7.8 mg/dL (8.6-10.3); EGFR African American 206.1 (>60); EGFR Non-African American 170.3 (>60); Potassium 4.1 mmol/L (3.5-5.0)
[2018-09-14] MEDS: Ondansetron INJ* 2 MG/ML VIAL IV PRN ×2 (07:33→23:38)
[2018-09-14] MEDS: Lisinopril TAB* 10 MG PO SCH (08:44)
[2018-09-14] MEDS ORDERED: Bupivacaine 0.5% W/EPI SDV* 30 ML VIAL ONE (09:53)
[2018-09-14] MEDS ORDERED: fentaNYL* 50 MCG/ML 2 ML VIAL (100 MCG VIAL) ONE ×2 (11:52→16:02)
[2018-09-14] MEDS ORDERED: Midazolam* 1 MG/ML 2 ML VIAL (2 MG) ONE (11:53)
[2018-09-14] MEDS ORDERED: Buffered Lidocaine 1% SYRIN* 1 ML/SYRINGE INTRADERM ONE (11:58)
[2018-09-14] MEDS ORDERED: Acetaminophen TAB* 325 MG PO PRN (12:24)
[2018-09-14] MEDS ORDERED: fentaNYL* 50 MCG/ML 2 ML VIAL (100 MCG VIAL) IV PRN (12:24)
[2018-09-14] MEDS ORDERED: Naloxone* 0.4 MG/ML 1 ML VIAL IV PRN (12:24)
[2018-09-14] MEDS ORDERED: Ondansetron INJ* 2 MG/ML VIAL IV PRN (12:24)
[2018-09-14] MEDS ORDERED: DiMENhydriNATE IV* 50 MG/ML VIAL IV PUSH PRN (12:24)
[2018-09-14] MEDS ORDERED: Levalbuterol 0.63MG/3ML NEB* UNIT OF USE INH PRN (12:24)
[2018-09-14] MEDS ORDERED: PROCHLORPERAZINE INJ 5 MG/ML 2 ML VIAL IV PRN (12:24)
[2018-09-14] MEDS ORDERED: Famotidine IV* 10 MG/ML 2 ML (20 mg) ONE (12:26)
[2018-09-14] MEDS ORDERED: ceFAZolin 2 GM PREMIX in ORs 2 GM/50 ML BAG IVPB ONE (12:47)
[2018-09-14] MEDS ORDERED: Lidocaine 2% PF * 5 ML VIAL ONE (12:59)
[2018-09-14] MEDS ORDERED: Cisatracurium* 2 MG/ML MDV 5 ML ONE (13:00)
[2018-09-14] MEDS ORDERED: Dexamethasone IV* 4 MG/ML 1 ML (4 MG) ONE (13:00)
[2018-09-14] MEDS ORDERED: Ondansetron INJ* 2 MG/ML VIAL ONE ×2 (13:00→16:02)
[2018-09-14] MEDS ORDERED: Propofol* 10 MG/ML 20 ML BTL ONE (13:00)
[2018-09-14] MEDS ORDERED: Succinylcholine* 20 MG/ML 10 ML VIAL ONE (13:00)
[2018-09-14] MEDS ORDERED: EPHEDrine (Pressors)* 50 MG/ML VIAL ONE (13:26)
[2018-09-14] MEDS ORDERED: HYDROmorphone INJ1* 1 MG/ML SYRINGE ONE ×2 (13:40→15:04)
[2018-09-14] MEDS ORDERED: Neostigmine Methylsulfate* 1 MG/ML 10 ML VIAL (1 mg/ml) ONE (14:24)
[2018-09-14] MEDS ORDERED: Glycopyrrolate IV* 0.2 MG/ML 1 ML VIAL ONE (14:24)
[2018-09-14] MEDS: HYDROmorphone INJ1* 1 MG/ML SYRINGE IV PRN ×3 (15:06→15:33)
--- NOTE | 2018-09-14 15:39 | PN ---
Subjective Date of Service: 09/14/18 Interval History: HOSPITALIST PROGRESS NOTE Patient seen and examined at bedside. Care reviewed and d/w Ashley Anderson RN. He offers no new complaints, anxious for surgery. Family History: Unchanged from Admission Social History: Unchanged from Admission Past Medical History: Unchanged from Admission Objective Active Medications: Acetaminophen (Tylenol Tab*) 650 mg PO ONCE PRN PRN Reason: PAIN - MILD Dextrose (D50w Syringe 50 Ml*) 25 gm IV PUSH ONCE PRN PRN Reason: hypoglycemia Dimenhydrinate (Dramamine Iv*) 12.5 mg IV PUSH ONCE PRN PRN Reason: NAUSEA/VOMITING Fentanyl Citrate (Fentanyl*) 50 mcg IV Q5M PRN PRN Reason: PAIN - MODERATE Hydromorphone HCl (Dilaudid Inj1s*) 0.5 mg IV SLOW PU Q1H PRN PRN Reason: PAIN Last Admin: 09/14/18 10:37 Dose: 0.5 mg Hydromorphone HCl (Dilaudid Inj1s*) 0.2 mg IV Q10M PRN PRN Reason: PAIN - SEVERE Last Admin: 09/14/18 15:17 Dose: 0.2 mg Dextrose/Lactated Ringer's (D5lr 1000 Ml Bag*) 1,000 mls @ 150 mls/hr IV PER RATE [facility] Last Admin: 09/14/18 09:21 Dose: 150 mls/hr Lactated Ringer's (Lactated Ringers 1000 Ml Bag*) 1,000 mls @ 125 mls/hr IV PER RATE [facility] Insulin Human Lispro (Humalog*) 0 units SUBCUT Q4H [facility]; Protocol Last Admin: 09/14/18 10:41 Dose: Not Given Ketorolac Tromethamine (Toradol Inj*) 30 mg IV Q6H PRN PRN Reason: PAIN Stop: 09/15/18 16:51 Last Admin: 09/14/18 09:21 Dose: 30 mg Levalbuterol HCl (Xopenex 0.63mg/3ml Neb*) 0.63 mg INH ONCE PRN PRN Reason: SOB/WHEEZING Lisinopril (Prinivil Tab*) 20 mg PO DAILY [facility] Last Admin: 09/14/18 08:44 Dose: Not Given Naloxone HCl (Narcan*) 0.08 mg IV Q2M PRN PRN Reason: severe induced resp depression Ondansetron HCl (Zofran Inj*) 4 mg IV Q4H PRN PRN Reason: NAUSEA/VOMITING Last Admin: 09/14/18 07:33 Dose: 4 mg Ondansetron HCl (Zofran Inj*) 4 mg IV ONCE PRN PRN Reason: NAUSEA/VOMITING Prochlorperazine Edisylate (Compazine Inj*) 2.5 mg IV ONCE PRN PRN Reason: NAUSEA/VOMITING Vital Signs - 8 hr 09/14/18 09/14/18 09/14/18 07:37 07:45 08:00 Temperature 98.9 F Pulse Rate 70 Respiratory 16 16 19 Rate Blood Pressure 166/87 (mmHg) O2 Sat by Pulse 98 Oximetry 09/14/18 09/14/18 09/14/18 08:50 10:00 10:37 Temperature Pulse Rate Respiratory 18 16 18 Rate Blood Pressure (mmHg) O2 Sat by Pulse Oximetry 09/14/18 09/14/18 09/14/18 11:22 14:27 14:30 Temperature 97.2 F 98.6 F Pulse Rate 70 71 74 Respiratory 12 14 16 Rate Blood Pressure 173/103 129/80 (mmHg) O2 Sat by Pulse 99 99 98 Oximetry 09/14/18 09/14/18 15:06 15:17 Temperature Pulse Rate Respiratory 15 16 Rate Blood Pressure (mmHg) O2 Sat by Pulse Oximetry Oxygen Devices in Use Now: Nasal Cannula Appearance: Middle aged gentleman lying in bed in [facility]. 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 Hospitalist service consulted to assist with diabetes management. - Patient Problems (1) History of Young-en-Y gastric bypass Comment: - With possible partial obstruction - management as per Surgery. (2) Diabetes Comment: - Type 2 DM. - Was hypoglycemic last night - will continue to hold Lantus while he is NPO. Continue D5LR, monitor FS and cover with Lispro SS. - As surgery advances his diet, will resume his usual regimen gradually. (3) Hypertension Comment: - Continue lisinopril. (4) DVT prophylaxis Comment: - As per Surgery. (5) Full code status Comment: Status and Disposition: Hospitalist service will continue to follow the patient with you.
[2018-09-14] MEDS ORDERED: Magnesium Hydroxide LIQ* 30 ML UDC PO PRN (17:39)
[2018-09-14] MEDS: Lactated Ringers 1000 ML Bag* 1,000 ML IV SCH (18:22)
--- NOTE | 2018-09-14 19:04 | OP ---
CC: [facility]; DO Fernando Monk DATE OF OPERATION: 09/14/18 - ROOM #333 DATE OF : 72 SURGEON: Mac Mcclendon MD. MOLD CLEANING AND STORAGE SUPERVISOR: Dr. Godoy. ANESTHESIOLOGIST: Dr. Jain. ANESTHESIA: General endotracheal. PRE-OP DIAGNOSIS: Abdominal pain, status post gastric bypass. POST-OP DIAGNOSES: 1. Abdominal pain, status post gastric bypass. 2. Internal hernia, status post gastric bypass. 3. Intraperitoneal adhesions. OPERATIVE PROCEDURE: Laparoscopy, lysis of adhesions, closure of internal hernia. OPERATIVE FINDINGS: The patient had intraabdominal adhesions which were of omentum to the anterior abdominal wall and to the falciform ligament of the liver. The small bowel did not appear dilated or obstructed. There was no evidence of intussusception. There was a retro-alimentary limb internal hernia , which did not contain any bowel, but was suture closed with silk. The colon was redundant particularly in the sigmoid region and filled with stool. Gallbladder appeared surgically absent. Stomach appeared to be minimally dilated. ESTIMATED BLOOD LOSS: Minimal. IV FLUIDS: Crystalloid. SPECIMENS: None. DRAINS: None. COMPLICATIONS: None. COUNTS: Instrument, needle, and sponge counts were correct. DESCRIPTION OF PROCEDURE: The patient was brought to the operating room and placed on the table supine. Sequential compression devices were placed on both lower extremities. General anesthesia was administered. He was positioned and padded appropriately. He was prepped and draped in usual sterile fashion and received appropriate intravenous antibiotics. Time-out was performed. Local anesthetic was infiltrated into the skin and soft tissue prior to making each incision. Entry into the abdomen was through a transumbilical vertical incision using an open technique. After accessing the peritoneal cavity, a 12- mm optical trocar was placed and carbon dioxide was insufflated to a pressure of 15 mmHg. Under direct visualization, 5-mm trocars were placed in the right upper quadrant, lower midline, and left upper quadrant. Inspection revealed adhesions that were of omentum to the anterior abdominal wall, particularly upper abdomen. There were adhesions as well to the falciform ligament. LigaSure was used to perform adhesiolysis. The gastrojejunal anastomosis was identified. The Young limb was noted to be in an antecolic-antegastric position and this was followed distally to a jejunojejunal anastomosis, which did not exhibit any evidence of obstruction or intussusception. The biliopancreatic limb was run proximally to the ligament of Treitz and noted not to have evidence of dilation. There was some clear ascites noted within the abdomen. The jejunum was then measured from the jejunojejunostomy distally to the ileocecal valve and back again with no abnormalities of the bowel noted other than there seemed to be some marked peristalsis. There was no dilation, inflammation, or obstruction. The inspection of the large intestine revealed a normal-appearing cecum, ascending colon, and transverse colon. The splenic flexure was identified as well as the descending colon and sigmoid colon. The sigmoid colon was quite redundant and filled with stool. There was clear ascites within the pelvis. No other abnormalities were identified. In the retro- alimentary space where the internal hernia defect was identified, a closure of this was performed with a 2-0 silk suture using this in a pursestring fashion along the edge of the mesentery taking purchase on the peritoneum running this up along the transverse colon, mesentery, peritoneum, and then tying this down taking a bite of the wall of the transverse colon to complete the closure. At this point, the ports were removed under direct visualization and carbon dioxide was released. The umbilical wound was closed with 0 Vicryl in an interrupted fashion. Skin incision was closed with 4-0 Monocryl in a subcuticular fashion and then DermaFlex was applied to the sites. The patient tolerated the procedure well, was extubated, and transferred to Recovery in stable condition. [id number]/[facility] #: [id number] SANYA
[2018-09-14] MEDS: Docusate CAP* 100 MG PO SCH (20:51)
[2018-09-14] MEDS: Polyethylene Glycol 3350* 17 GM PACKET PO PRN (23:46)
[2018-09-15] MEDS: Insulin LISPRO* 1 UNITS UNIT SUBCUT SCH ×6 (01:36→22:11)
[2018-09-15] MEDS: HYDROmorphone INJ1* 1 MG/ML SYRINGE IV PRN ×4 (01:36→08:44)
[2018-09-15] MEDS: Lactated Ringers 1000 ML Bag* 1,000 ML IV SCH ×2 (02:15→08:52)
[2018-09-15] MEDS: Ondansetron INJ* 2 MG/ML VIAL IV PRN ×2 (04:24→08:44)
[2018-09-15] MEDS: HYDROmorphone INJ1* 1 MG/ML SYRINGE IV SLOW PU PRN (05:04)
[2018-09-15] MEDS: Ketorolac INJ* 30 MG/ML 1 ML VIAL IV PRN (06:37)
[2018-09-15] MEDS ORDERED: Lactated Ringers 1000 ML Bag* 1,000 ML IV ONE (07:20)
[2018-09-15 07:24] LABS: Albumin 2.3 g/dL (3.2-5.2); Globulin 2.3 g/dL (2-4); Total Bilirubin 0.4 mg/dL (0.2-1.0); Total Protein 4.6 g/dL (6.4-8.9)
[2018-09-15] MEDS: Docusate CAP* 100 MG PO SCH ×3 (08:50→22:10)
[2018-09-15] MEDS: Polyethylene Glycol 3350* 17 GM PACKET PO PRN (08:50)
[2018-09-15] MEDS: Lisinopril TAB* 10 MG PO SCH (08:50)
[2018-09-15] MEDS: Multivitamins ADULT w/MIN LIQ* 15 ML UDC PO SCH (08:59)
[2018-09-15] MEDS ORDERED: Naloxone* 0.4 MG/ML 1 ML VIAL IV PUSH PRN (10:20)
[2018-09-15] MEDS ORDERED: Thiamine IV 100 MG, Folic Acid IV* 1 MG, Multiple Vitamin IV ADULT* 10 ML in D5NS 0.9% ... IV ONE (11:00)
[2018-09-15] MEDS ORDERED: Thiamine IV* 100 MG in NS 0.9% 50 ML* 50 ML IV SCH (11:00)
--- NOTE | 2018-09-15 11:08 | PN ---
Progress Note - Progress Note Date of Service: 09/15/18 SOAP: Subjective: He continues to report pain in abdomen and back. He has no N/V. Dilaudid is only effective for a 15 minutes. He states he does not want narcotics, but he cannot take the pain. He expressed frustration regarding his situation. Objective: Vital Signs Temp 99.5 F 09/15/18 08:04 Pulse 83 09/15/18 08:04 Resp 18 09/15/18 08:44 BP 154/81 09/15/18 08:04 Pulse Ox 93 09/15/18 08:04 Intake & Output 09/14/18 09/15/18 09/15/18 18:59 06:59 18:59 Intake Total 1062 1719 980 Output Total 375 350 Balance 687 1369 980 Intake: IV Fluids 1062 1139 980 D5LR 812 LR 250 1139 980 Oral 580 Output: Lindsay 375 350 Other: # Bowel Movements 0 Gen: lying in bed; at times tears up; no obvious distress. Abd: incisions c/d/i; ND, soft. Laboratory Results - last 24 hr 09/14/18 06:22 Sodium 135 Potassium 4.1 Chloride 101 Carbon Dioxide 32 Anion Gap 2 BUN 20 Creatinine 0.52 L Est GFR ( Amer) 206.1 Est GFR (Non-Af Amer) 170.3 BUN/Creatinine Ratio 38.5 H Glucose 109 H Calcium 7.8 L Total Bilirubin 0.40 AST 127 H ALT 113 H Alkaline Phosphatase 375 H Total Protein 4.6 L Albumin 2.3 L Globulin 2.3 Albumin/Globulin Ratio 1.0 Assessment: POD#1 s/p dx laparoscopy/SHENA/closure internal hernia. Ongoing pain of unclear etiology. Neupathic? Elevated LFTs without bilirubinemia. Constipation and poor bladder emptying may be neurogenic. Possible these relate to micronutrient dificiency as he has not been taking supplements post gastric bypass. Plan: Will administer banana bag. Cont oral MVI. Check vit ADEK, thiamine, zinc, selenium, copper levels. Have asked for Neurology and GI consult. SECURITY SUPERVISOR for pain. Diet as tolerated. Bowel regimen. D/w patient and his mother.
[2018-09-15] MEDS: HYDROmorphone PCA* 20 MG/20 ML PCA.SYRING PCA SCH (11:13)
[2018-09-15 11:16] LABS: INR 0.96 (0.77-1.02)
[2018-09-15] MEDS: Zinc Sulfate CAP* 220 MG PO SCH (13:04)
[2018-09-15] MEDS: D5W 1/2 NS KCl 20 Meq 1000 ML* 1,000 ML IV SCH (13:04)
--- NOTE | 2018-09-15 14:00 | CONS ---
CC: Dr. Mcclendon; Dr. Shravan Hannon, [facility]; Dr. Jamison * CONSULTATION REPORT: DATE OF CONSULT: 09/15/18 REQUESTING PHYSICIAN: Dr. Mcclendon. INDICATION FOR CONSULTATION: 1. Increased liver function tests. 2. Constipation. 3. Abdominal pain. NARRATIVE: Mr. Jackson is a pleasant 48-year-old gentleman, who was seen by Dr. Hannon during the last hospitalization on 08/31/18. The patient was seen for increased liver function tests and abdominal pain. Regarding the abdominal pain, the patient underwent an upper endoscopy with Dr. Hannon to rule out anastomotic ulcer or anastomotic stricture from his previous Young-en-Y gastric bypass surgery, neither of which were seen or found. Additionally, the patient had mildly elevated liver function tests. His bilirubin was normal. A suspicion was for nonalcoholic fatty liver disease. The patient did have hepatitis serologies A, B and C that were negative, negative ZOLTAN, negative AMA to rule out other potential causes of liver disease. The patient then did follow up with Dr. Hannon in the office for further evaluation of his liver function tests. He had been recommended to have an MRI. Unfortunately, he has had insurance issues with the MRI. The patient had been referred to a eyeglass frames inspector down in [place]. He did see that eyeglass frames inspector, who also ordered an MRI and he now has 2 orders for MRIs through his insurance company and the insurance company is currently not allowing either. This is all according to the patient. Plan was to obtain a liver MRI and if no suspicious culprits were found, to likely perform a liver biopsy for further evaluation. The patient was admitted just a few days ago for worsening abdominal pain located mainly in the upper abdomen; however, often radiating to the back. He was admitted to the surgical service for concern of an internal hernia. He did go to the operating room yesterday, which resulted in lysis of adhesions and closure of an internal hernia. The patient still continues to have abdominal pain; however, he was recently started on a COLLECTIONS ASSISTANT and he states that is helping dramatically. His other issue is constipation. He states that he can go days without having a bowel movement and this has been present for many months. He tells me he did have a colonoscopy in 2012 at an outside institution, at which time polyps were found. The patient has tried multiple laxatives in the past. He has been on MiraLAX in the past upwards of 2 doses, not every day, but pretty much every day. He states that he does feel a little bit better after having a bowel movement. PAST MEDICAL HISTORY: Significant for depression, obesity, hyperlipidemia, hypertension, type 2 diabetes. MEDICATIONS UPON ADMISSION: Include: 1. Victoza. 2. Lisinopril. 3. Metformin. 4. Lyrica. 5. Tramadol. 6. Chantix. ALLERGIES: None. FAMILY HISTORY: No GI malignancies nor inflammatory bowel disease in the family. SOCIAL HISTORY: Continues to smoke tobacco. I counseled him against this. Denies any alcohol or IV drug use. REVIEW OF SYSTEMS: Twelve systems were reviewed and other than that mentioned in the HPI were unremarkable. PHYSICAL EXAM: General: Well-appearing male, in no apparent distress, alert, oriented, pleasant, fluent, lying flat in bed. HEENT: Mucous membranes are moist without lesions, ulcers, or exudates. Neck is supple. Trachea is midline. Head is normocephalic, atraumatic. Heart: Regular rate and rhythm. Lungs: Clear to auscultation bilaterally. No wheezes, rales, or rhonchi. Abdomen: Positive bowel sounds. Soft. Mild guarding to deep palpation. No rebound. Incision sites are clean, dry, and intact. Skin is warm and dry. DIAGNOSTIC STUDIES/LAB DATA: Labs of note, white count is 5.7, hemoglobin is 12.4, platelets 283. Sodium 134, chloride is 100, creatinine 0.66. AST is 86, ALT is 116, alk phos of 341. He did have a recent CT abdomen and pelvis from this admission, which reveals mucosal thickening of the distal esophagus, possible upper urinary tract infection, mild periportal edema, large amount of stool throughout the colon, no obstruction. ASSESSMENT AND PLAN: This is a pleasant 48-year-old gentleman with a couple of issues. The first is his increased liver function tests. He is currently in the midst of a workup for this. The leading diagnosis would be nonalcoholic fatty liver disease. He is having some insurance issues regarding the MRI. May be we will try and get this while he is here in the hospital. If that is unremarkable, then the next step would likely be a liver biopsy, which can be done as an outpatient. Regarding his constipation, I would like to increase his MiraLAX. I will also check to see if either Amitiza or Linzess is covered here in the hospital. If not, both of those are something that he could try as an outpatient. I wonder if his constipation is contributing somewhat to his abdominal pain. Likely his constipation is slow transit constipation. He has severe diabetes with neuropathies. Regarding his abdominal pain, may be related to the constipation, there was nothing on the EGD from a couple of weeks ago that could explain his abdominal pain. At some point, it does sound like he is due for a colonoscopy. This can be arranged as an outpatient. The patient also is postsurgery from yesterday. We will continue to follow along very closely. [id number]/[facility] #: [id number] SANYA
--- NOTE | 2018-09-15 14:21 | PN ---
Subjective Date of Service: 09/15/18 Interval History: Discussed symptoms in detail with pt Neuropathic pain,headaches,bodyaches,numbness,tingling,numbness various dermatomes,abd pain,constipation,muscle weakness,balance problems,unable to stand due to leg weakness sometimes Family History: Unchanged from Admission Social History: Unchanged from Admission Past Medical History: Unchanged from Admission Objective Active Medications: Calcium Citrate (Citracal Tab*) 600 mg PO BID COUNT INCLUDES THE [facility] Cyanocobalamin (Vitamin B12 Tab*) 1,000 mcg PO DAILY COUNT INCLUDES THE [facility] Dextrose (D50w Syringe 50 Ml*) 25 gm IV PUSH ONCE PRN PRN Reason: hypoglycemia Docusate Sodium (Colace Cap*) 100 mg PO TID COUNT INCLUDES THE [facility] Last Admin: 09/15/18 08:50 Dose: 100 mg Hydromorphone HCl (Dilaudid Lap Machine Tender*) 20 mg in 20 mls @ 0 mls/hr PBX TEACHER .change Q24H COUNT INCLUDES THE [facility]; Protocol Last Admin: 09/15/18 11:13 Dose: 0.2 mls/hr Thiamine HCl 100 mg/ Folic Acid 1 mg/ Multivitamins 10 ml / Dextrose/Sodium Chloride 1,011.2 mls @ 252.8 mls/hr IV ONCE ONE Stop: 09/15/18 14:59 Last Admin: 09/15/18 12:48 Dose: 252.8 mls/hr Potassium Chloride/Dextrose (D5w 1/2 Ns Kcl 20 Meq 1000 Ml*) 1,000 mls @ 75 mls /hr IV .PER RATE COUNT INCLUDES THE [facility] Last Admin: 09/15/18 13:04 Dose: 75 mls/hr Insulin Human Lispro (Humalog*) 0 units SUBCUT Q4H COUNT INCLUDES THE [facility]; Protocol Last Admin: 09/15/18 11:53 Dose: 2 unit Ketorolac Tromethamine (Toradol Inj*) 30 mg IV Q6H PRN PRN Reason: PAIN Stop: 09/15/18 16:51 Last Admin: 09/15/18 06:37 Dose: 30 mg Lisinopril (Prinivil Tab*) 20 mg PO DAILY COUNT INCLUDES THE [facility] Last Admin: 09/15/18 08:50 Dose: 20 mg Magnesium Hydroxide (Milk Of Magnesia Liq*) 30 ml PO Q6H PRN PRN Reason: CONSTIPATION Last Admin: 09/15/18 04:26 Dose: 30 ml Multivitamins (Theragran W/Minerals Liq*) 15 ml PO DAILY ANIYA Last Admin: 09/15/18 08:59 Dose: 15 ml Naloxone HCl (Narcan*) 0.08 mg IV PUSH .Q2MIN PRN PRN Reason: OVERSEDATION Ondansetron HCl (Zofran Inj*) 4 mg IV Q4H PRN PRN Reason: NAUSEA/VOMITING Last Admin: 09/15/18 08:44 Dose: 4 mg Polyethylene Glycol/Electrolytes (Miralax*) 34 gm PO DAILY COUNT INCLUDES THE [facility]; Protocol Vitamin B Complex/Vitamin E (B Complex-50*) 1 tab PO DAILY COUNT INCLUDES THE [facility] Zinc Sulfate (Zinc-220 Cap*) 220 mg PO DAILY COUNT INCLUDES THE [facility] Last Admin: 09/15/18 13:04 Dose: 220 mg Vital Signs - 8 hr 09/15/18 09/15/18 09/15/18 06:35 06:41 07:59 Temperature Pulse Rate 87 Respiratory 16 16 Rate Blood Pressure 144/78 (mmHg) O2 Sat by Pulse 94 Oximetry 09/15/18 09/15/18 09/15/18 08:00 08:04 08:14 Temperature 99.5 F Pulse Rate 83 Respiratory 16 16 16 Rate Blood Pressure 154/81 (mmHg) O2 Sat by Pulse 93 Oximetry 09/15/18 09/15/18 09/15/18 08:44 10:52 11:13 Temperature Pulse Rate Respiratory 18 18 18 Rate Blood Pressure (mmHg) O2 Sat by Pulse 94 Oximetry 09/15/18 09/15/18 09/15/18 11:16 11:22 11:30 Temperature 99.1 F Pulse Rate 84 79 Respiratory 18 18 16 Rate Blood Pressure 154/81 130/76 (mmHg) O2 Sat by Pulse 95 94 95 Oximetry 09/15/18 09/15/18 12:22 12:56 Temperature Pulse Rate Respiratory 18 18 Rate Blood Pressure (mmHg) O2 Sat by Pulse 94 Oximetry Oxygen Devices in Use Now: None Eyes: No Scleral Icterus Ears/Nose/Mouth/Throat: NL Teeth, Lips, Gums Neck: NL Appearance and Movements; NL JVP Respiratory: Symmetrical Chest Expansion and Respiratory Effort Cardiovascular: NL Sounds; No Murmurs; No JVD Abdominal: - - pain on palpation,no rebound no guarding,bs presents Extremities: No Edema Skin: No Rash or Ulcers Neurological: Alert and Oriented x 3, - - able to move all 4 extremities,gait not tested,full neuro exam not performed Result Diagrams: 09/14/18 06:22 09/14/18 06:22 Microbiology and Other Data: Microbiology 09/14/18 00:17 Urine Culture - Final Urine No Growth (<1,000 CFU/mL) Assess/Plan/Problems-Billing Assessment: Mr Jackson is a 48yo M with PMH of type 2 DM, depression, obesity s/p Young en Y , HLD, HTN, who presents to ED with recurrent abdominal pain, found to have partial obstruction of the biliopancreatic limb of his Young en Y with possible intussusception. Hospitalist service consulted to assist with diabetes management. - Patient Problems (1) Diabetes Current Visit: Yes Status: Acute Code(s): E11.9 - TYPE 2 DIABETES MELLITUS WITHOUT COMPLICATIONS SNOMED Code(s): 16327918 Comment: - Type 2 DM. -Continue current insulin regimen (2) History of Young-en-Y gastric bypass Current Visit: Yes Status: Acute Code(s): Z98.84 - BARIATRIC SURGERY STATUS SNOMED Code(s): 420593367 Comment: -s/p laproscopic surgery and SHENA with Dr Ruiz yesterday.No obstruction (3) Hypertension Current Visit: Yes Status: Acute Code(s): I10 - ESSENTIAL (PRIMARY) HYPERTENSION SNOMED Code(s): 66500194 Comment: - Continue lisinopril. (4) MTHFR mutation Current Visit: Yes Status: Acute Code(s): E72.12 - METHYLENETETRAHYDROFOLATE REDUCTASE DEFICIENCY SNOMED Code(s): 90786196 Comment: Discussed symptoms in detail with pt. Pt noted to have multiple neurologic and varied symptoms as described above worsening since [place] Chart and prior w/u reviewed in detail Has had w/u for this as an Outpt as well Recent MRI head,Thoracic,lumbar,cervical unremarkable ! Lyme,hepatitis c,b,hiv was tested recently neg Symptoms possibly related to Micronutrient deficiency, heavy metal toxicity or Autoimmune etiology Dr Ruiz has ordered ADEK ,zinc,copper,selenium,bit b12 and folate tested before Possible Zinc,Copper Def.Started on Zinc today after checking Pt also noted to have MTHFR mutation( heterozygous) making micronutrient deficiency very possible ( needs bioavail folate, methylfolate and methylcobalamin).Will check homocysteine levels in blood and urine to check. 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
[2018-09-15 15:53] LABS: C Reactive Protein 46.23 mg/L (<8.01)
[2018-09-15] MEDS ORDERED: Gadoteridol* (CONTRAST) 279.3 MG/ML 10 ML IV ONE (17:16)
[2018-09-15 17:28] LABS: Urine Creatinine 126.98 mg/dL; Urine Creatinine Concentration 126.98 mg/dL
--- NOTE | 2018-09-15 17:43 | CONS ---
CC: Dr. Archer; Dr. Garcia; Dr. Adams NEUROLOGY CONSULTATION: DATE OF CONSULT: 09/15/18 LOCATION: He is in room 333. REFERRING PHYSICIAN: Dr. Mcclendon. CHIEF COMPLAINT: Pain and numbness. 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 He was readmitted on 09/13/18 with refractory pain. He reports that he star jose having problems last fall with some aching and tiredness in his legs. It would come and go and rachel hays did not think too much of it. He has not seen a doctor for years. He then just around a few days before New Year started to develop a sense of pain in his abdomen like a band. It goes from above hi s umbilicus down into his groin area and into his legs. It developed on and off over at most a few da ys. He had pretty severe pain in his abdominal area and he found that he could not make himself to h ave a bowel movement and he had great difficulty urinating. He would have to wait till his bladder w as very full and then stand and he only then can urinate. He finally ended up seeing physicians in a emergency room in [place] where he was driving at that time. He stated he was prescribed some med ications and released. He came back to this area where his daughter lives. He said he was evaluated at the [facility] and evaluated and released. He presented to our emergency room and was admitted. It was thought that his symptoms might be from malnutrition as he has a hist ory of Young-en-Y surgery and also of diabetes. It was found that his diabetes was out of control. Rachel hays has not had it checked for years. He then was discharged, but returned on 09/13/18 with refractory pain. The pain goes above his umbilicus around his back and down into his legs all the way to his feet. If he presses on any of the muscles or skin on his legs and feet, it is quite painful. He feels better if he is standing. He feels unsteady and that his legs are weak. He also gets occasional numbness and burning sensation down the left arm. If he extends his neck, it seems to precipitate it. He not es minimal if any symptoms in the right arm. He has not had any falls. He had imaging of his cervic al, thoracic, and lumbar spine while he was here without contrast and it was unremarkable. He is now patient-controlled analgesia for pain control. He has been able to walk and feels somewhat better w hen he is up. He had exploratory laparoscopic surgery yesterday and Dr. Mcclendon could not find an et iology for his pain. He has not had any recent infections or flus. No recent immunizations. He does not take any prescri ption medicines as an outpatient until this illness. He did take vitamins, but not on a regular basi s. 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 Again, no recent fevers or chills or other signs or symptoms of infection. PAST MEDICAL HISTORY: Mainly notable for diabetes prior to weight loss surgery, which then resolved. He has a history of hyperlipidemia, hypertension, cholecystectomy, depression. He lost more than 2 00 pounds after his surgery. MEDICATIONS: Medications that he was on prior to admission which just began when he reconnected with the medical system: 1. Victoza 1.2 mg subcu daily. 2. Lisinopril 10 mg p.o. daily. 3. Metformin 1000 mg p.o. b.i.d. 4. Lyrica 50 mg p.o. t.i.d. 5. Tramadol 50 mg p.o. daily. 6. Chantix 1 mg p.o. b.i.d. ALLERGIES: He does not have any drug allergies. SOCIAL HISTORY: He does not drink alcohol. He says that he does not have home and drives his truck around the country. His family is here in [place]. REVIEW OF SYSTEMS: Notable for negative recent change in weight, falls, heart disease, breathing pro blems. PHYSICAL EXAM: He is well hydrated and well nourished. Temperature 98.6, blood pressure most recent ly 130/76, heart rate is in the 70s and regular. Respiratory rate is 16 and oxygen saturation is 95% on room air. Heart is in a regular rhythm without murmurs. Neck is supple. There is no Lhermitte sign. There ar e no cervical bruits. Oral mucosa is moist. He has some laparoscopic scars on his abdomen. Neurological Exam: Pupils react equally from 4 down to 2.5 mm. Eye movements are normal. He has a little bit of proptosis bilaterally. Funduscopic exam is normal bilaterally. Visual cerrato are full to confrontation. Facial musculature is symmetric. Facial sensation to light touch is intact and s ymmetric. Palate and tongue are notable for prior uvulopalatoplasty. Speech is clear and tongue pro trudes in the midline. Motor exam reveals tenderness to palpation and movement of his lower extremities. He has normal stren gth proximally and distally in the upper extremities and the lower extremities, although limited some what by pain in the legs. On sensory exam, he has diminished vibration sense in both feet fairly symmetrically, diminished vibr ation in the left fingers more than the right fingers. Proprioceptive responses in the toes are inta ct. Pin discrimination is diminished from the toes and up above the umbilicus to about the T8 level. Pin discrimination in the back is also diminished approximately to the same level. Light touch is p resent in the toes and fingers. He is areflexic. Plantar responses are flexor. He does have superficial abdominal reflexes above th e umbilicus, but not below the umbilicus. There is no tremor. He is alert and oriented and a very good detailed historian. Memory is intact an d language is fluent. He has good attention, concentration, and adequate fund of knowledge. DIAGNOSTIC STUDIES/LAB DATA: Reviewed includes MRIs of the brain, cervical, lumbar and thoracic spin e, all interpreted as normal. I reviewed the studies and I agree. Other laboratory studies notable for CBC with mild anemia with a hemoglobin of 12.2 and otherwise a n ormal CBC. INR is normal at 0.96 and PTT at 31. Chemistries notable for a glucose of 54 this mornin g, it was 341 when he came in on 08/31/18 and it was 65 yesterday. ALT and AST are elevated at 113 a nd 127 respectively. Alkaline phosphatase elevated at 375. On 09/07/18, vitamin B12 level was normal at 743 and folate greater than 20. On 08/31/18, TSH and free T4 were normal. 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 On 08/30/18 and 09/07/18, he had a number of studies notable for negative HIV, negative hepatitis B and C, negative West Nile virus a ntibodies, negative Lyme testing; negative Anaplasma, Babesia, and syphilis antibody testing. IMPRESSION AND PLAN: Impression is that of a thoracic myelopathy. I am not sure entirely as to etio logy, but I suspect that it might be immune mediated. Differential diagnosis is fairly broad and incl udes compressive lesions which have essentially been ruled out with his noncontrasted MRI scans. Inf ectious etiologies and vascular etiologies remain in the differential. Nutritional myelopathies are also in the differential, but so far there has been nothing glaring found in his labs studies. I think he should have a lumbar puncture, MRI scans of the spine with contrast, and nerve conduction and EMG testing. I discussed with Jordan and his parents that I think this is a spinal cord problem a nd not an intraabdominal problem. I went over the broad differential of infectious, inflammatory, an d other immune mediated. Also toxic myelopathies are in the differential. We will transfer him to the hospitalist side and I will plan on doing EMG/nerve conductions on him to [place]. I spoke with Dr. Archer, who will contact Anesthesia to see if they can help us with a madelin mbar puncture. I put in orders for a number of immunological and infectious etiologies for spinal co rd disorders as well as for contrasted MRI scans of the spine. We will continue to follow him along with you. [id number]/[facility] #: [id number]
[2018-09-15 17:49] LABS: Urine TP Concentration 281 mg/dL
[2018-09-15 18:09] LABS: UR Microalbumin (mg/L) > 1500.0; Urine Microalbumin/Creatinine 1181.2 (<31)
[2018-09-15] MEDS ORDERED: Ergocalciferol CAP* 50000 UNIT PO ONE (18:27)
[2018-09-15] MEDS: Calcium Citrate TAB* 200 MG PO SCH (22:09)
[2018-09-16] MEDS: Insulin LISPRO* 1 UNITS UNIT SUBCUT SCH ×6 (01:55→21:49)
[2018-09-16] MEDS: HYDROmorphone PCA* 20 MG/20 ML PCA.SYRING PCA SCH (07:29)
[2018-09-16] MEDS: Lisinopril TAB* 10 MG PO SCH (08:51)
[2018-09-16] MEDS: Docusate CAP* 100 MG PO SCH ×3 (08:51→20:26)
[2018-09-16] MEDS: Calcium Citrate TAB* 200 MG PO SCH ×2 (08:51→20:26)
[2018-09-16] MEDS: Vitamin B Complex TAB PO SCH (08:51)
[2018-09-16] MEDS: Polyethylene Glycol 3350* 17 GM PACKET PO SCH (08:51)
[2018-09-16] MEDS: Multivitamins ADULT w/MIN LIQ* 15 ML UDC PO SCH (08:52)
[2018-09-16] MEDS: Zinc Sulfate CAP* 220 MG PO SCH (08:52)
[2018-09-16] MEDS ORDERED: Cyanocobalamin TAB* 500 MCG PO SCH (09:00)
[2018-09-16] MEDS: D5W 1/2 NS KCl 20 Meq 1000 ML* 1,000 ML IV SCH ×2 (09:00→22:00)
--- NOTE | 2018-09-16 10:18 | PN ---
Progress Note - Progress Note Date of Service: 09/16/18 Note: GI FU no change, still with upper abd pain, no bm, feels bloated VS; 99.1, 144/81, 79, 16 nad, washing at bedside +bs, softly distended, +tender, no guarding no new labs 48 yo male with 1. increased lfts, outpt walker progressing, will get MRI abd as inpt since insurance refuses as outpt, continue outpt walker, ?liver bx 2. abd pain-?related to constipation, functional, continue to work with laxatives, amitiza and linzess not on [facility] formulary 3. constipation, see #2 Rafa Garcia MD [facility] [phone]
--- NOTE | 2018-09-16 10:40 | PN ---
Progress Note - Progress Note Date of Service: 09/16/18 SOAP: Subjective: Pt seen and abdomen examined. Chart reviewed and case d/w Dr. Durham. Appreciate Neurology note Pain is worsening- extending cephalad Objective: Temp Pulse Resp BP Pulse Ox 99.1 F 79 16 144/81 97 09/16/18 07:43 09/16/18 07:43 09/16/18 09:00 09/16/18 07:43 09/16/18 09:00 abdo: soft/ ND/ tender lap incisions healed Assessment: abdo pain, back pain -- likely thoracic myelopathy Plan: pain control diet as tolerated will follow along
--- NOTE | 2018-09-16 11:30 | PN ---
Subjective Date of Service: 09/16/18 Interval History: c/o same symptoms as yesterday.Reports numbness worsening.Pain slightly improved.W/u in progress Family History: Unchanged from Admission Social History: Unchanged from Admission Past Medical History: Unchanged from Admission Objective Active Medications: Calcium Citrate (Citracal Tab*) 600 mg PO BID [facility] Last Admin: 09/16/18 08:51 Dose: 600 mg Dextrose (D50w Syringe 50 Ml*) 25 gm IV PUSH ONCE PRN PRN Reason: hypoglycemia Docusate Sodium (Colace Cap*) 100 mg PO TID [facility] Last Admin: 09/16/18 08:51 Dose: 100 mg Hydromorphone HCl (Dilaudid Rehabilitation Case Coordinator*) 20 mg in 20 mls @ 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/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 .change Q24H [facility]; Protocol Last Admin: 09/16/18 07:29 Dose: 0.2 mls/hr Potassium Chloride/Dextrose (D5w 1/2 Ns Kcl 20 Meq 1000 Ml*) 1,000 mls @ 75 mls /hr IV .PER RATE [facility] Last Admin: 09/15/18 13:04 Dose: 75 mls/hr Insulin Human Lispro (Humalog*) 0 units SUBCUT Q4H [facility]; Protocol Last Admin: 09/16/18 10:59 Dose: 3 unit Lisinopril (Prinivil Tab*) 20 mg PO DAILY [facility] Last Admin: 09/16/18 08:51 Dose: 20 mg Magnesium Hydroxide (Milk Of Magnesia Liq*) 30 ml PO Q6H PRN PRN Reason: CONSTIPATION Last Admin: 09/15/18 04:26 Dose: 30 ml Multivitamins (Theragran W/Minerals Liq*) 15 ml PO DAILY [facility] Last Admin: 09/16/18 08:52 Dose: 15 ml Naloxone HCl (Narcan*) 0.08 mg IV PUSH .Q2MIN PRN PRN Reason: OVERSEDATION Natural Dietary Supplement (B-12) 1,000 mcg SL DAILY [facility] Cmcs:Non Formulary Med: Methylfolate 7. 5mg Tab 2 dose PO DAILY [facility] Ondansetron HCl (Zofran Inj*) 4 mg IV Q4H PRN PRN Reason: NAUSEA/VOMITING Last Admin: 09/15/18 08:44 Dose: 4 mg Polyethylene Glycol/Electrolytes (Miralax*) 34 gm PO DAILY [facility]; Protocol Last Admin: 09/16/18 08:51 Dose: 34 gm Vitamin B Complex/Vitamin E (B Complex-50*) 1 tab PO DAILY [facility] Last Admin: 09/16/18 08:51 Dose: 1 tab Zinc Sulfate (Zinc-220 Cap*) 220 mg PO DAILY [facility] Last Admin: 09/16/18 08:52 Dose: 220 mg Vital Signs - 8 hr 09/16/18 09/16/18 09/16/18 05:44 06:59 07:00 Temperature Pulse Rate Respiratory 18 17 16 Rate Blood Pressure (mmHg) O2 Sat by Pulse 96 96 95 Oximetry 09/16/18 09/16/18 09/16/18 07:29 07:43 08:00 Temperature 99.1 F Pulse Rate 79 Respiratory 16 16 16 Rate Blood Pressure 144/81 (mmHg) O2 Sat by Pulse 96 97 Oximetry 09/16/18 09/16/18 09/16/18 08:50 09:00 11:00 Temperature Pulse Rate Respiratory 16 16 16 Rate Blood Pressure (mmHg) O2 Sat by Pulse 97 96 Oximetry Oxygen Devices in Use Now: None, Nasal Cannula Eyes: No Scleral Icterus Ears/Nose/Mouth/Throat: NL Teeth, Lips, Gums Neck: NL Appearance and Movements; NL JVP Respiratory: Symmetrical Chest Expansion and Respiratory Effort, Clear to Auscultation Cardiovascular: NL Sounds; No Murmurs; No JVD, RRR Abdominal: - - tender on palpation no rebound no guarding Extremities: No Edema Neurological: Alert and Oriented x 3 Result Diagrams: 09/14/18 06:22 09/14/18 06:22 Microbiology and Other Data: Microbiology 09/14/18 00:17 Urine Culture - Final Urine No Growth (<1,000 CFU/mL) Assess/Plan/Problems-Billing Assessment: Mr Jackson is a 48yo M with PMH of type 2 DM, depression, obesity s/p Young en Y , HLD, HTN, who presents to ED with recurrent abdominal pain, found to have partial obstruction of the biliopancreatic limb of his Young en Y with possible intussusception. - Patient Problems (1) Diabetes Current Visit: Yes Status: Acute Code(s): E11.9 - TYPE 2 DIABETES MELLITUS WITHOUT COMPLICATIONS SNOMED Code(s): 61435649 Comment: - Type 2 DM. -Continue current insulin regimen (2) History of Young-en-Y gastric bypass Current Visit: Yes Status: Acute Code(s): Z98.84 - BARIATRIC SURGERY STATUS SNOMED Code(s): 684638493 Comment: -s/p laproscopic surgery and SHENA with Dr Ruiz on Monday.No obstruction (3) Hypertension Current Visit: Yes Status: Acute Code(s): I10 - ESSENTIAL (PRIMARY) HYPERTENSION SNOMED Code(s): 76707594 Comment: - Continue lisinopril. (4) MTHFR mutation Current Visit: Yes Status: Acute Code(s): E72.12 - METHYLENETETRAHYDROFOLATE REDUCTASE DEFICIENCY SNOMED Code(s): 29237951 Comment: Discussed symptoms in detail with pt. Pt noted to have multiple neurologic and varied symptoms as described above worsening since machelle Chart and prior w/u reviewed in detail Has had w/u for this as an Outpt as well Recent MRI head,Thoracic,lumbar,cervical unremarkable ! Lyme,hepatitis c,b,hiv was tested recently neg Symptoms possibly related to Micronutrient deficiency, heavy metal toxicity or Autoimmune etiology Dr Ruiz has ordered ADEK ,zinc,copper,selenium,bit b12 and folate tested before Possible Zinc,Copper Def.Started on Zinc today after checking Pt also noted to have MTHFR mutation( heterozygous) making micronutrient deficiency very possible ( needs bioavail folate, methylfolate and methylcobalamin).Will check homocysteine levels in blood and urine to check. 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 Will start autoimmune w/u for myositis/polymyositis,scleroderma,mixed connective tissue.will get lópez,cpk,alodolase,esr,scleroderma ab,certified pharmacy technician.If LÓPEZ and other w/u comes back positive,further w/u can be ordered Will check lactic acid: may have type b lactic acidosis from metformin Noted to have 2+ protein in urine, likely from diabetes.Less likely GN.Will quantify urine protein (5) Thoracic myelopathy Current Visit: Yes Status: Acute Code(s): M47.14 - OTHER SPONDYLOSIS WITH MYELOPATHY, THORACIC REGION SNOMED Code(s): 630205496 Comment: Appreciate Neuro input -Seen by Dr Webb -Transitioned to hospitalist service -Requested LP with anesthesia as suggested by Neuro.Plan for LP today with Dr Jain -CSF studies ordered by Neuro -Plan for EMG today -Autoimmune w/u expanded and ordered by Dr Webb -Will await w/u and testing Status and Disposition: Hospitalist service will continue to follow the patient with you.
[2018-09-16 17:15] LABS: Body Fluid Source Cerebral Spinal
[2018-09-16 17:35] LABS: CSF Glucose 100 mg/dL (40-70)
[2018-09-16 18:15] LABS: Body Fluid Mono 44 %
[2018-09-16] MEDS: Immune Globuln (PRIVIGEN) 30 GM in PREMIX IV SCH ×3 (19:36)
--- NOTE | 2018-09-16 20:27 | CONS ---
CC: Dr. Mcclendon * NEUROLOGY FOLLOWUP NOTE: DATE OF SERVICE: 09/16/18 LOCATION: He is an inpatient in room 333. HOSPITALIST: Dr. Archer. CHIEF COMPLAINT: Weakness and pain. INTERVAL HISTORY: Since yesterday, Jordan feels more or less the same. The numbness in his legs may be a little more intense and it may be a little bit higher on his abdomen, but it is generally about the same. He has no new symptoms to report. MEDICATIONS: Medications are reviewed. He is on: 1. Patient-controlled analgesia. 2. Colace 100 mg p.o. t.i.d. 3. Sliding scale insulin. 4. Multivitamins p.o. 5. Methylfolate 7.5 mg p.o. b.i.d. 6. Zofran 4 mg IV q.4 hours p.r.n. nausea. 7. Vitamin B complex and vitamin E one tablet p.o. q. day. 8. Zinc sulfate 220 mg p.o. q. day. PHYSICAL EXAM: He is well nourished and well hydrated. Temperature 98.2, blood pressure 152/88, heart rate in the 70s and regular. Respiratory rate is 16 and oxygen saturation is 98% on room air. Neurologically, he still has pretty good strength in the limbs, but there is pain with movement of the legs. He has atrophy of the extensor digitorum brevis muscles. He is areflexic. He is alert and oriented and a good detailed historian. Memory is intact and language is fluent. DIAGNOSTIC STUDIES/LAB DATA: Includes nerve conduction studies and EMG done today by myself. 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 Other laboratory study is notable for a sedimentation rate of 39 yesterday, a stable hemoglobin. INR and PTT are within normal limits as of yesterday. Electrolytes have not been repeated today. CRP is elevated from yesterday at 46.2. Creatine kinase this morning is normal at 41. Ammonia level yesterday normal at 51. Contrasted MRIs of the thoracic and cervical spine were obtained and essentially did not show any enhancing abnormalities. 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 He appears to have myelitis as well, although it is possible this is all a peripheral nerve process rather than a spinal cord and peripheral nerve process. He has diabetes , but this clearly is more subacute and would be expected from his diabetes or any nutritional deficits alone. There are a number of studies pending for immunological disorders and he has a spinal tap pending for this afternoon. My inclination will be to treat him with intravenous immunoglobulin whether or not his spinal fluid protein is elevated or not. Steroids would be indicated if he had a transverse myelitis, but without evidence of inflammation on imaging and pending spinal fluid results, my inclination would be to opt for IVIG. I will await the spinal fluid results and then make a decision on that treatment. Dr. Banks will be coming on service tomorrow morning and I will ask him to follow up on Mr. Jackson. [id number]/[facility] #: [id number] S[facility]
[2018-09-17] MEDS: Insulin LISPRO* 1 UNITS UNIT SUBCUT SCH ×6 (01:47→22:11)
[2018-09-17] MEDS: HYDROmorphone PCA* 20 MG/20 ML PCA.SYRING PCA SCH ×2 (02:29→21:35)
[2018-09-17 06:01] LABS: ABS Basophils 0 10^3/ul (0-0.2); ABS Eosinophils 0.1 10^3/ul (0-0.6); ABS Monocytes 0.4 10^3/ul (0-0.8); ABS Neutrophils 2.8 10^3/ul (1.5-7.7); ABS Nucleated RBC 0 10^3/ul; Eosinophil % 2.4 %; Hematocrit 33 % (42-52); Hemoglobin 11.6 g/dl (14.0-18.0); Lymphocyte % 23.8 %; Mean Corpuscular HGB Conc 35 g/dl (31-36); Mean Corpuscular Hemoglobin 30 pg (27-31); Mean Corpuscular Volume 86 fL (80-94); Mean Platelet Volume 7.5 fL (7.4-10.4); Nucleated Red Blood Cells % 0; Platelet Count 232 10^3/ul (150-450); Red Blood Count 3.85 10^6/ul (4.00-5.40); Red Cell Distribution Width 12 % (10.5-15); White Blood Count 4.4 10^3/ul (3.5-10.8)
[2018-09-17 06:16] LABS: BUN/Creatinine Ratio 30.2 (8-20); Calcium 7.7 mg/dL (8.6-10.3); EGFR African American 201.6 (>60); EGFR Non-African American 166.6 (>60)
[2018-09-17] MEDS ORDERED: METHYLFOLATE 7.5 MG PO SCH (09:00)
[2018-09-17] MEDS ORDERED: Gadoteridol* (CONTRAST) 279.3 MG/ML 10 ML IV ONE (10:00)
[2018-09-17] MEDS: Polyethylene Glycol 3350* 17 GM PACKET PO SCH (11:58)
[2018-09-17] MEDS: Calcium Citrate TAB* 200 MG PO SCH ×2 (11:58→22:11)
[2018-09-17] MEDS: Multivitamins ADULT w/MIN LIQ* 15 ML UDC PO SCH (11:59)
[2018-09-17] MEDS: Lisinopril TAB* 10 MG PO SCH (11:59)
[2018-09-17] MEDS: Vitamin B Complex TAB PO SCH (11:59)
[2018-09-17] MEDS: Docusate CAP* 100 MG PO SCH ×3 (11:59→22:11)
[2018-09-17] MEDS: METHYLCOBALAMIN 1000 MCG SL SCH (11:59)
[2018-09-17] MEDS: Zinc Sulfate CAP* 220 MG PO SCH (11:59)
[2018-09-17] MEDS: D5W 1/2 NS KCl 20 Meq 1000 ML* 1,000 ML IV SCH (12:08)
--- NOTE | 2018-09-17 15:00 | PN ---
Subjective Date of Service: 09/17/18 Length of Stay: 4 Days Neurology is following for diffuse polyneuropathy. Interval History: Review of the medical history Mr. Jordan Willett is a 48-year-old man with history of DMII since the 1989's. He is s/p bariatric surgery and has lost over 200lbs in five years. Around March-April 2018, the patient noticed he was run down, has generalized fatigue and malaise, and has to use his arms more often to lift himself up most of the time. Of note, he has not taken any of his diabetes medication for 3 years because the diabetes was cured after the significant weight loss. He knew it may be the diabetes "creeping up" on him again. He always had numbness in the feet for 20+ years. Between and 2017, he knee something was going on because he developed gradual onset of sharp, burning, and tingling pain around his legs, pelvis and lower abdomen region. He feels that these areas were on fire. 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 He denied any neck pain or weakness in the upper extremities. He presented to [facility] on 09/13/2018 for increase in abdominal pain that seemed to have gradually worsen since mid August 2018. He was found to have partial bowel obstruction. He underwent a diagnostic laparoscopy for closure of internal hernia. He continued to have ongoing pain. He was also having symptoms of constipation and poor bladder emptying. He was evaluated by Dr. Webb on 09/15/2018. Extensive work-up was sent out for a paraneoplastic panel, MRIs, and cerebral spinal fluid. It was thought that the patient may have a thoracic myelopathy. He had an MRI brain, C, T, and earlier on the month an MRI L spine that were all unremarkable except for: small bilateral pleural effusion. I personally reviewed these images. He has significantly low vitamin D level. TSH was normal. Vitamin B12 was 743. Recent hemoglobin A1c level 12.8. He underwent an LP to look for inflammatory cells or elevated protein. His protein was normal at 38, cell count 1, and glucose of 100. He was started on IVIG yesterday for the suspected diagnosis of subacute inflammatory polyneuropathy. He tolerated the IVIG without any reported side effect of headache. The following labs have been ordered: homocysteine, MARYANNE, aldolase, ANCA, ZOLTAN, scleroderma, CCP, CMV, copper level, EBC in CSF, SSA, SSB, Selenium, Mercury, Lead, Heavy metals screen, Zinc level, Vitamin A, B1, E, and K. He had an EMG/NCS done by Dr. Webb that showed a length-dependent sensorimotor polyneuroapthy of both axonal and concerning for a demyelinating type. S: The patient is sitting at the edge of the bed in no distress. He has significant pain in the thigh and lower abdomen region. The pain is very tender to touch. He denied any respiratory distress. He denied any headache. He has a urinary catheter due to urinary dysfunction. He did notice some improvement in the burning pain which is no longer ascending into his abdomen. Review of Systems: Denied CP, SOB, or palpitations. Family History: Unchanged from Admission Social History: Unchanged from Admission Past Medical History: Unchanged from Admission Objective Active Medications: Calcium Citrate (Citracal Tab*) 600 mg PO BID [facility] Last Admin: 09/17/18 11:58 Dose: 600 mg Dextrose (D50w Syringe 50 Ml*) 25 gm IV PUSH ONCE PRN PRN Reason: hypoglycemia Docusate Sodium (Colace Cap*) 100 mg PO TID [facility] Last Admin: 09/17/18 14:20 Dose: 100 mg Hydromorphone HCl (Dilaudid Respiratory Practitioner*) 20 mg in 20 mls @ 0 mls/hr QUALITY CONTROL OPERATOR .change Q24H [facility]; Protocol Last Admin: 09/17/18 02:29 Dose: 20 mls/hr Potassium Chloride/Dextrose (D5w 1/2 Ns Kcl 20 Meq 1000 Ml*) 1,000 mls @ 75 mls /hr IV .PER RATE [facility] Last Admin: 09/17/18 12:08 Dose: 75 mls/hr Immune Globulin 20 gm/ Immune (Globulin 10 gm/ IV Solution) 300 mls @ 0 mls/hr IV DAILY@1600 [facility]; Protocol Stop: 09/20/18 16:01 Last Admin: 09/16/18 19:36 Dose: 20.4 mls/hr Insulin Human Lispro (Humalog*) 0 units SUBCUT Q4H [facility]; Protocol Last Admin: 09/17/18 14:21 Dose: 3 unit Lisinopril (Prinivil Tab*) 20 mg PO DAILY [facility] Last Admin: 09/17/18 11:59 Dose: 20 mg Magnesium Hydroxide (Milk Of Magnesia Liq*) 30 ml PO Q6H PRN PRN Reason: CONSTIPATION Last Admin: 09/15/18 04:26 Dose: 30 ml Multivitamins (Theragran W/Minerals Liq*) 15 ml PO DAILY [facility] Last Admin: 09/17/18 11:59 Dose: 15 ml Naloxone HCl (Narcan*) 0.08 mg IV PUSH .Q2MIN PRN PRN Reason: OVERSEDATION Natural Dietary Supplement (B-12) 1,000 mcg SL DAILY [facility] Last Admin: 09/17/18 11:59 Dose: 1,000 mcg Cmcs:Non Formulary Med: Methylfolate 7. 5mg Tab 2 admin PO DAILY [facility] Ondansetron HCl (Zofran Inj*) 4 mg IV Q4H PRN PRN Reason: NAUSEA/VOMITING Last Admin: 09/15/18 08:44 Dose: 4 mg Polyethylene Glycol/Electrolytes (Miralax*) 34 gm PO DAILY [facility]; Protocol Last Admin: 09/17/18 11:58 Dose: 34 gm Vitamin B Complex/Vitamin E (B Complex-50*) 1 tab PO DAILY [facility] Last Admin: 09/17/18 11:59 Dose: 1 tab Zinc Sulfate (Zinc-220 Cap*) 220 mg PO DAILY [facility] Last Admin: 09/17/18 11:59 Dose: 220 mg Vital Signs 09/17/18 09/17/18 09/17/18 07:23 08:00 09:00 Temperature 98.3 F Pulse Rate 77 Respiratory 16 16 18 Rate Blood Pressure 163/122 (mmHg) O2 Sat by Pulse 99 99 99 Oximetry 09/17/18 09/17/18 11:00 13:00 Temperature Pulse Rate Respiratory 18 18 Rate Blood Pressure (mmHg) O2 Sat by Pulse 99 99 Oximetry Intake and Output Last 24 Hours 09/15/18 09/16/18 09/17/18 09/18/18 06:59 06:59 06:59 06:59 Intake Total 2781 3662 3460 Output Total 725 1175 2900 0 Balance 2056 2487 560 0 Weight 150 lb 150 lb Intake: IV Fluids 2201 1263 2960 D5LR 812 D5W 1/2 NS 20 meq KCL 1980 LR 1389 1263 NS (0.9%) 980 IVPB 999 Thiamine 999 Oral 580 1400 500 Output: Lindsay 725 1175 2900 0 Other: # Bowel Movements 0 Oxygen Devices in Use Now: Nasal Cannula Neurology Exam: General: Frail, ill appearing man who looks older than his age. HEENT: Normocephalic/atraumatic, sclera anicteric, mucous membranes moist Neck: Supple Chest: Clear to auscultation bilaterally Cardiovascular: Regular rate and rhythm without murmurs, rubs, gallop Extremities: no hammer toes or high arches. He has marked atrophy in the proximal quads bilaterally. He has thin legs. Neurological Findings: Awake, alert, and oriented to person, place, and general circumstances. Speech: fluent without dysrhythmia, repetition intact Cranial Nerve: PERRL, EOM intact, VFF, no nystagmus, face symmetric bilaterally , facial sensation intact, hearing intact to finger rub bilaterally, palate elevates symmetrically, tongue midline, SCM and Trapezius s/s. Motor: reduce tone throughout. He has fairly normal strength in the upper extremity but some weakness graded as 4/5 symmetrically to hip flexors, knee extension, and ankle dorsiflexion R>L. Sensation: distal to proximal sensory gradient to light touch, temperature, and pin prick demarcated at the distal thighs bilaterally. He has no sensory level. Vibration 3 seconds on the right and 2 seconds on the left great toes. Intact proprioception sensation. Deep Tendon Reflex: trace throughout with absent at the knees and ankles. Finger to nose, rapid alternating movements intact without tremor, no dysdiadochokinesia Gait: wide based required on person assist. No ataxia. Result Diagrams: 09/17/18 05:26 09/17/18 05:26 Additional Lab and Data: Please see above. Microbiology and Other Data: Microbiology 09/14/18 00:17 Urine Culture - Final Urine No Growth (<1,000 CFU/mL) Assessment/Plan Mr. Jordan Jackson is a 48-year-old man, poorly controlled diabetic who has lost +200 lbs following bariatric surgery who presented with a subacute presentation of progressive lower extremity weakness, associated with severe neuropathic pain and autonomic dysfunction. He was started on IVIG for suspected inflammatory polyneuropathy in spite of the normal CSF protein level. There was a concern for myelitis but I was unable to appreciate any upper motor neuron signs on examination to suspect a central MANAGER WELLNESS process. The patient is tolerating the IVIG and has noticed a mild reduction in the ascending paresthesia. Based on the history, clinical examination, imaging, and electrdiagnostic study , I suspect the patient has an underlying lower motor neuron process that is causing neuropathy related to a nutritional or metabolic state. 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 Some supportive factors include: history of controlled diabetes in the past, significant weight loss, pain more than weakness, some proximal lower limb weakness, atrophy of the quadriceps muscles, urinary dysfunction, and some chest or abdominal wall pain suggesting some thoracic radiculopathy. This is caused by ischemic injury from a nonsystemic microvasculitis. Other differential diagnosis include nutritional neuropathy given his gastic bypass surgery. Given the low protein in the CSF and the gradual subacute onset of symptoms without any preceding infection, AIDP is low on the differential. Recommendations: - Sympatomatic management ( gabapentin, Lyrica, or Cymbalta) - There are no indications for IVIG in this condition, however, some small retrospective study report that patients expereience clinical improvement in diabetic amytrophy with IVIG or steroids. (Pain Pract. 2013;14(2):E85-90. Epub 2012Jun 06. ) Therefore, continue IVIG for a total of 5 days. - Neuro checks every 4 hours - Please do FVCs x 1 to check his pulmonary function - PT to evaluate and treat - Please discontinue Zinc supplements as this can affect the copper absorption - I will continue to follow. Time spent: 40 minutes obtaining history, examining the patient, and discussing the above recommendations.
--- NOTE | 2018-09-17 16:52 | PN ---
Subjective Date of Service: 09/17/18 Family History: Unchanged from Admission Social History: Unchanged from Admission Past Medical History: Unchanged from Admission Objective Active Medications: Calcium Citrate (Citracal Tab*) 600 mg PO BID [facility] Last Admin: 09/17/18 11:58 Dose: 600 mg Dextrose (D50w Syringe 50 Ml*) 25 gm IV PUSH ONCE PRN PRN Reason: hypoglycemia Docusate Sodium (Colace Cap*) 100 mg PO TID [facility] Last Admin: 09/17/18 14:20 Dose: 100 mg Hydromorphone HCl (Dilaudid Glass Bulb Machine Adjuster*) 20 mg in 20 mls @ 0 mls/hr CLOTH LAYER .change Q24H [facility]; Protocol Last Admin: 09/17/18 02:29 Dose: 20 mls/hr Potassium Chloride/Dextrose (D5w 1/2 Ns Kcl 20 Meq 1000 Ml*) 1,000 mls @ 75 mls /hr IV .PER RATE [facility] Last Admin: 09/17/18 12:08 Dose: 75 mls/hr Immune Globulin 20 gm/ Immune (Globulin 10 gm/ IV Solution) 300 mls @ 0 mls/hr IV DAILY@1600 [facility]; Protocol Stop: 09/20/18 16:01 Last Admin: 09/16/18 19:36 Dose: 20.4 mls/hr Insulin Human Lispro (Humalog*) 0 units SUBCUT Q4H [facility]; Protocol Last Admin: 09/17/18 14:21 Dose: 3 unit Lisinopril (Prinivil Tab*) 20 mg PO DAILY [facility] Last Admin: 09/17/18 11:59 Dose: 20 mg Magnesium Hydroxide (Milk Of Magnesia Liq*) 30 ml PO Q6H PRN PRN Reason: CONSTIPATION Last Admin: 09/15/18 04:26 Dose: 30 ml Multivitamins (Theragran W/Minerals Liq*) 15 ml PO DAILY [facility] Last Admin: 09/17/18 11:59 Dose: 15 ml Naloxone HCl (Narcan*) 0.08 mg IV PUSH .Q2MIN PRN PRN Reason: OVERSEDATION Natural Dietary Supplement (B-12) 1,000 mcg SL DAILY [facility] Last Admin: 09/17/18 11:59 Dose: 1,000 mcg [facility]:Non Formulary Med: Methylfolate 7. 5mg Tab 2 admin PO DAILY [facility] Ondansetron HCl (Zofran Inj*) 4 mg IV Q4H PRN PRN Reason: NAUSEA/VOMITING Last Admin: 09/15/18 08:44 Dose: 4 mg Polyethylene Glycol/Electrolytes (Miralax*) 34 gm PO DAILY [facility]; Protocol Last Admin: 09/17/18 11:58 Dose: 34 gm Vitamin B Complex/Vitamin E (B Complex-50*) 1 tab PO DAILY [facility] Last Admin: 09/17/18 11:59 Dose: 1 tab Vital Signs - 8 hr 09/17/18 09/17/18 09/17/18 09:00 11:00 13:00 Respiratory 18 18 18 Rate O2 Sat by Pulse 99 99 99 Oximetry Oxygen Devices in Use Now: Nasal Cannula Appearance: alert, no distress Ears/Nose/Mouth/Throat: Clear Oropharnyx Neck: No Thyroid Enlargement, Masses Respiratory: Clear to Auscultation Cardiovascular: NL Sounds; No Murmurs; No JVD Abdominal: NL Sounds; No Tenderness; No Distention, - - subjective tenderness throughout Lymphatic: No Cervical Adenopathy Extremities: No Edema Neurological: Alert and Oriented x 3, - - motor 4/5 LE bilat, hyperalgesia bilat , DTR trace bilat Lines/Tubes/Other Access: Clean, Dry and Intact Peripheral IV Nutrition: Taking PO's Result Diagrams: 09/17/18 05:26 09/17/18 05:26 Additional Lab and Data: Laboratory Tests 09/15/18 09/15/18 09/16/18 15:25 15:25 05:19 ESR 39 H Ammonia 51 Total Creatine Kinase 41 CSF Glucose CSF Total Protein 09/16/18 16:45 ESR Ammonia Total Creatine Kinase CSF Glucose 100 H CSF Total Protein 38 Assess/Plan/Problems-Billing 48-year-old man with diffuse weakness and pain in bilat LE, bowel and bladder dysfunction, differential includes AIDP, vitamin deficiency due to bariatric surgery, or lumbo-sacral plexus neuropathy. - Patient Problems (1) Neuropathy, lumbosacral plexus Current Visit: Yes Status: Acute Priority: High Code(s): G54.1 - LUMBOSACRAL PLEXUS DISORDERS SNOMED Code(s): 802417109 Comment: -Differential as above -Dr. Nichols has stopped IVIg and zinc, less concerned re AIDP ([place]) -Will check PFTs for diaphram weakness -Start Cymbalta for neuropathic pain, goal to reduce dilaudid CLOTH LAYER -MRI brain reviewed with patient (2) Type 2 diabetes mellitus Current Visit: Yes Status: Acute Priority: Medium Comment: -A1c in 11% range last month -on sliding scale insulin, FS >200 for 24h -will start low-dose lantus (3) Elevated LFTs Current Visit: No Status: Acute Priority: Medium Code(s): R94.5 - ABNORMAL RESULTS OF LIVER FUNCTION STUDIES SNOMED Code(s): 031637475 Comment: - Possibly secondary to hepatosteatosis - MRI abdo reviewed with patient today, no specific findings - may need liver biopsy - will discuss w/ GI (4) History of Young-en-Y gastric bypass Current Visit: Yes Status: Acute Priority: Medium Code(s): Z98.84 - BARIATRIC SURGERY STATUS SNOMED Code(s): 814179508 Comment: -multiple vitamin studies pending, may explain syndrome Status and Disposition: Hospitalist service will continue to follow the patient with you.
[2018-09-17] MEDS: Immune Globuln (PRIVIGEN) 30 GM in PREMIX IV SCH ×3 (17:14)
--- NOTE | 2018-09-17 17:23 | PN ---
Progress Note - Progress Note Date of Service: 09/17/18 Note: GI fu no significant change, +abd pain had MRI abd VS; 98.3, 163/122 nad, looks comfortable +bs, soft, diffuse tenderness MRI abd: mildly dilated intrahepatic biliary ducts increase LFTs, likely ZEPEDA; plan for outpt liver bx abd pain; multifactorial Rafa Garcia MD [facility] [phone]
[2018-09-17] MEDS ORDERED: Insulin GLARGINE(*) 1 UNITS UNIT ONE (17:54)
[2018-09-17] MEDS: Insulin GLARGINE(*) 1 UNITS UNIT SUBCUT SCH (17:56)
[2018-09-17] MEDS: DULoxetine DR CAP* 30 MG CAP.DR PO SCH (17:57)
[2018-09-17] MEDS: hydrALAZINE IV* 20 MG/ML VIAL IV SLOW PU PRN (23:15)
[2018-09-18] MEDS: D5W 1/2 NS KCl 20 Meq 1000 ML* 1,000 ML IV SCH ×2 (02:14→17:17)
[2018-09-18] MEDS: Insulin LISPRO* 1 UNITS UNIT SUBCUT SCH ×6 (02:31→22:05)
[2018-09-18] MEDS: Lisinopril TAB* 10 MG PO SCH (09:05)
[2018-09-18] MEDS: Docusate CAP* 100 MG PO SCH ×3 (09:05→20:41)
[2018-09-18] MEDS: Polyethylene Glycol 3350* 17 GM PACKET PO SCH (09:05)
[2018-09-18] MEDS: DULoxetine DR CAP* 30 MG CAP.DR PO SCH (09:05)
[2018-09-18] MEDS: Calcium Citrate TAB* 200 MG PO SCH ×2 (09:06→20:40)
[2018-09-18] MEDS: METHYLFOLATE 7.5 MG PO SCH (09:06)
[2018-09-18] MEDS: METHYLCOBALAMIN 1000 MCG SL SCH (09:06)
[2018-09-18] MEDS: Vitamin B Complex TAB PO SCH (09:06)
[2018-09-18] MEDS: Multivitamins ADULT w/MIN LIQ* 15 ML UDC PO SCH (09:07)
[2018-09-18] MEDS: hydrALAZINE IV* 20 MG/ML VIAL IV SLOW PU PRN (09:08)
[2018-09-18] MEDS: Ondansetron INJ* 2 MG/ML VIAL IV PRN ×2 (09:17→18:34)
--- NOTE | 2018-09-18 09:42 | PN ---
Progress Note - Progress Note Date of Service: 09/18/18 Note: Surgery Progress: S: POD #4. Still w/ sig pain; using PRISON WARDEN. Nausea, but no vomiting. Eating/ drinking some, but doesn't like hospital food. No BM since August 30, per pt. Current Medications Calcium Citrate (Citracal Tab*) 600 mg PO BID [facility] Last Admin: 09/18/18 09:06 Dose: 600 mg Dextrose (D50w Syringe 50 Ml*) 25 gm IV PUSH ONCE PRN PRN Reason: hypoglycemia Docusate Sodium (Colace Cap*) 100 mg PO TID [facility] Last Admin: 09/18/18 09:05 Dose: 100 mg Duloxetine HCl (Cymbalta Cap*) 30 mg PO DAILY [facility] Last Admin: 09/18/18 09:05 Dose: Not Given Hydralazine HCl (Apresoline Iv*) 5 mg IV SLOW PU Q6H PRN PRN Reason: BLOOD PRESSURE Last Admin: 09/18/18 09:08 Dose: 5 mg Hydromorphone HCl (Dilaudid Global Climate Change Researcher*) 20 mg in 20 mls @ 0 mls/hr PRISON WARDEN .change Q24H [facility]; Protocol Last Admin: 09/17/18 21:35 Dose: 0.2 mls/hr Potassium Chloride/Dextrose (D5w 1/2 Ns Kcl 20 Meq 1000 Ml*) 1,000 mls @ 75 mls /hr IV .PER RATE [facility] Last Admin: 09/18/18 02:14 Dose: 75 mls/hr Immune Globulin 20 gm/ Immune (Globulin 10 gm/ IV Solution) 300 mls @ 0 mls/hr IV DAILY@1600 [facility]; Protocol Stop: 09/20/18 16:01 Last Admin: 09/17/18 17:14 Dose: 20.4 mls/hr Insulin Glargine (Lantus(*)) 10 units SUBCUT Q24H [facility] Last Admin: 09/17/18 17:56 Dose: 10 unit Insulin Human Lispro (Humalog*) 0 units SUBCUT Q4H [facility]; Protocol Last Admin: 09/18/18 06:32 Dose: Not Given Lisinopril (Prinivil Tab*) 20 mg PO DAILY [facility] Last Admin: 09/18/18 09:05 Dose: 20 mg Magnesium Hydroxide (Milk Of Magnesia Liq*) 30 ml PO Q6H PRN PRN Reason: CONSTIPATION Last Admin: 09/15/18 04:26 Dose: 30 ml Multivitamins (Theragran W/Minerals Liq*) 15 ml PO DAILY [facility] Last Admin: 09/18/18 09:07 Dose: 15 ml Naloxone HCl (Narcan*) 0.08 mg IV PUSH .Q2MIN PRN PRN Reason: OVERSEDATION Natural Dietary Supplement (B-12) 1,000 mcg SL DAILY [facility] Last Admin: 09/18/18 09:06 Dose: 1,000 mcg [facility]:Non Formulary Med: Methylfolate 7. 5mg Tab 2 admin PO DAILY [facility] Last Admin: 09/18/18 09:06 Dose: 2 admin Ondansetron HCl (Zofran Inj*) 4 mg IV Q4H PRN PRN Reason: NAUSEA/VOMITING Last Admin: 09/18/18 09:17 Dose: 4 mg Polyethylene Glycol/Electrolytes (Miralax*) 34 gm PO DAILY [facility]; Protocol Last Admin: 09/18/18 09:05 Dose: 34 gm Vitamin B Complex/Vitamin E (B Complex-50*) 1 tab PO DAILY [facility] Last Admin: 09/18/18 09:06 Dose: 1 tab O: Vital Signs - 8 hr 09/18/18 09/18/18 09/18/18 02:00 02:28 02:30 Temperature 97.3 F Pulse Rate 73 72 Respiratory Rate Blood Pressure 162/92 161/93 (mmHg) O2 Sat by Pulse 100 97 100 Oximetry 09/18/18 09/18/18 09/18/18 03:00 03:30 03:59 Temperature 96.9 F Pulse Rate 72 75 135 Respiratory 14 Rate Blood Pressure 165/90 (mmHg) O2 Sat by Pulse 99 86 92 Oximetry 09/18/18 09/18/18 09/18/18 04:00 04:30 05:00 Temperature 97.2 F 97.2 F Pulse Rate 76 73 73 Respiratory 14 Rate Blood Pressure 158/85 167/87 (mmHg) O2 Sat by Pulse 100 100 87 Oximetry 09/18/18 09/18/18 09/18/18 05:30 06:00 06:30 Temperature Pulse Rate 75 76 77 Respiratory Rate Blood Pressure 161/93 161/92 168/93 (mmHg) O2 Sat by Pulse 100 100 100 Oximetry 09/18/18 09/18/18 09/18/18 06:44 07:00 08:33 Temperature Pulse Rate 122 79 78 Respiratory 18 16 Rate Blood Pressure 168/94 180/100 (mmHg) O2 Sat by Pulse 89 100 Oximetry 09/18/18 08:45 Temperature Pulse Rate Respiratory Rate Blood Pressure 180/90 (mmHg) O2 Sat by Pulse Oximetry Intake and Output Last 24 Hours 09/16/18 09/17/18 09/18/18 09/19/18 06:59 06:59 06:59 06:59 Intake Total 3662 3460 Output Total 1175 2900 2125 850 Balance 2487 560 -2125 -850 Weight 150 lb 150 lb Intake: IV Fluids 1263 2960 D5W 1/2 NS 20 meq KCL 1980 LR 1263 NS (0.9%) 980 IVPB 999 Thiamine 999 Oral 1400 500 Output: Lindsay 1175 2900 2125 850 Gen: sitting up in bed; NAD Abd: lap sites ok; bloated/distended/tympanitic; soft w/ moderate diffuse tenderness (which he states is c/w his preop baseline). CT on admission reviewed; notable for redundant sigmoid w/ large amt of stool throughout colon. A: ongoing abd pain, s/p negative laparoscopy; ongoing obstipation despite current regimen (Miralax, colace, MOM prn) P: med/GI mgmt; will d/w Dr. Mcclendon
[2018-09-18 15:49] LABS: Submitting Laboratory Phone 6072744474; Venous/Capillary Venous
[2018-09-18 16:10] LABS: U1 RNP IgG Autoabs <0.2 U
[2018-09-18 16:11] LABS: Cytomegalovirus IgG Antibody Positive (Negative)
[2018-09-18 16:17] LABS: Copper Level 0.88 mcg/mL (0.75-1.45); Zinc 0.44 mcg/mL (0.66-1.10)
[2018-09-18 16:23] LABS: Aldolase 8.1 U/L (<7.7)
[2018-09-18] MEDS ORDERED: Immune Globuln (PRIVIGEN) 30 GM in PREMIX IV SCH ×3 (16:30)
--- NOTE | 2018-09-18 16:46 | PN ---
Subjective Date of Service: 09/18/18 Interval History: Patient has no new complaints. Pain in legs moves around, is worse in feet today. Has not had BM since admission. Reports bowel difficult to prep for colonoscopy 5 years ago, would not respond to [employer] [place]. Family History: Unchanged from Admission Social History: Unchanged from Admission Past Medical History: Unchanged from Admission Objective Active Medications: Calcium Citrate (Citracal Tab*) 600 mg PO BID [facility] Last Admin: 09/18/18 09:06 Dose: 600 mg Dextrose (D50w Syringe 50 Ml*) 25 gm IV PUSH ONCE PRN PRN Reason: hypoglycemia Docusate Sodium (Colace Cap*) 100 mg PO TID [facility] Last Admin: 09/18/18 14:38 Dose: 100 mg Duloxetine HCl (Cymbalta Cap*) 30 mg PO DAILY [facility] Last Admin: 09/18/18 09:05 Dose: Not Given Hydralazine HCl (Apresoline Iv*) 5 mg IV SLOW PU Q6H PRN PRN Reason: BLOOD PRESSURE Last Admin: 09/18/18 09:08 Dose: 5 mg Hydromorphone HCl (Dilaudid Smasher*) 20 mg in 20 mls @ 0 mls/hr ASSEMBLY INSPECTOR .change Q24H [facility]; Protocol Last Admin: 09/17/18 21:35 Dose: 0.2 mls/hr Potassium Chloride/Dextrose (D5w 1/2 Ns Kcl 20 Meq 1000 Ml*) 1,000 mls @ 75 mls /hr IV .PER RATE [facility] Last Admin: 09/18/18 02:14 Dose: 75 mls/hr Immune Globulin 20 gm/ Immune (Globulin 10 gm/ IV Solution) 300 mls @ 0 mls/hr IV DAILY@1630 [facility]; Protocol Stop: 09/19/18 06:30 Immune Globulin 20 gm/ Immune (Globulin 10 gm/ IV Solution) 300 mls @ 0 mls/hr IV DAILY@1930 [facility]; Protocol Stop: 09/20/18 19:31 Insulin Glargine (Lantus(*)) 10 units SUBCUT Q24H [facility] Last Admin: 09/17/18 17:56 Dose: 10 unit Insulin Human Lispro (Humalog*) 0 units SUBCUT Q4H [facility]; Protocol Last Admin: 09/18/18 14:38 Dose: 2 unit Lactulose (Lactulose*) 30 ml PO QID [facility] Lisinopril (Prinivil Tab*) 20 mg PO DAILY [facility] Last Admin: 09/18/18 09:05 Dose: 20 mg Magnesium Hydroxide (Milk Of Magnesia Liq*) 30 ml PO Q6H PRN PRN Reason: CONSTIPATION Last Admin: 09/15/18 04:26 Dose: 30 ml Multivitamins (Theragran W/Minerals Liq*) 15 ml PO DAILY [facility] Last Admin: 09/18/18 09:07 Dose: 15 ml Naloxone HCl (Narcan*) 0.08 mg IV PUSH .Q2MIN PRN PRN Reason: OVERSEDATION Natural Dietary Supplement (B-12) 1,000 mcg SL DAILY [facility] Last Admin: 09/18/18 09:06 Dose: 1,000 mcg Cmcs:Non Formulary Med: Methylfolate 7. 5mg Tab 2 admin PO DAILY [facility] Last Admin: 09/18/18 09:06 Dose: 2 admin Ondansetron HCl (Zofran Inj*) 4 mg IV Q4H PRN PRN Reason: NAUSEA/VOMITING Last Admin: 09/18/18 09:17 Dose: 4 mg Polyethylene Glycol/Electrolytes (Miralax*) 34 gm PO DAILY [facility]; Protocol Last Admin: 09/18/18 09:05 Dose: 34 gm Pregabalin (Lyrica Cap(*)) 50 mg PO BID [facility] Senna (Senokot Tab*) 1 tab PO BEDTIME [facility] Vitamin B Complex/Vitamin E (B Complex-50*) 1 tab PO DAILY [facility] Last Admin: 09/18/18 09:06 Dose: 1 tab Vital Signs - 8 hr 09/18/18 09/18/18 09/18/18 08:45 09:00 11:00 Temperature Pulse Rate Respiratory 16 16 Rate Blood Pressure 180/90 (mmHg) O2 Sat by Pulse 97 97 Oximetry 09/18/18 09/18/18 09/18/18 11:14 13:00 15:00 Temperature 36.7 C Pulse Rate 81 Respiratory 20 16 16 Rate Blood Pressure 152/74 (mmHg) O2 Sat by Pulse 100 97 97 Oximetry 09/18/18 09/18/18 15:14 16:00 Temperature 37.2 C Pulse Rate 76 Respiratory 18 Rate Blood Pressure 147/81 (mmHg) O2 Sat by Pulse 97 97 Oximetry Oxygen Devices in Use Now: Nasal Cannula Appearance: alert, no distress Eyes: No Scleral Icterus Ears/Nose/Mouth/Throat: Clear Oropharnyx Neck: Trachea Midline Respiratory: Symmetrical Chest Expansion and Respiratory Effort, Clear to Auscultation Cardiovascular: NL Sounds; No Murmurs; No JVD, RRR Abdominal: No Hepatosplenomegaly, - - +BS, distended Lymphatic: No Cervical Adenopathy Extremities: No Edema Neurological: Alert and Oriented x 3 Lines/Tubes/Other Access: Clean, Dry and Intact Peripheral IV Result Diagrams: 09/17/18 05:26 09/17/18 05:26 Additional Lab and Data: Laboratory Tests 09/16/18 09/16/18 09/16/18 05:20 05:20 05:20 Proteinase 3 (PR3) < 0.2 Myeloperoxidase Ab < 0.2 Scl-70 Scleroderma Ab <0.2 U1-nRNP Antibody <0.2 CMV IgG Ab Positive A CMV IgM Ab Negative 09/18/18 09/18/18 09/18/18 02:13 06:20 10:44 POC Glucose (mg/dL) 121 H 139 H 163 H 09/18/18 14:33 POC Glucose (mg/dL) 216 H Assess/Plan/Problems-Billing 48-year-old man with diffuse weakness and pain in bilat LE, bowel and bladder dysfunction, differential includes AIDP, vitamin deficiency due to bariatric surgery, or lumbo-sacral plexus neuropathy. - Patient Problems (1) Neuropathy, lumbosacral plexus Current Visit: Yes Status: Acute Priority: High Code(s): G54.1 - LUMBOSACRAL PLEXUS DISORDERS SNOMED Code(s): 928748304 Comment: -Differential as above -discussed extensively with Dr. 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 INSPECTOR, would titrate up in 1-2 days if tolerated -MRI brain reviewed with patient (2) Type 2 diabetes mellitus Current Visit: Yes Status: Acute Priority: Medium Comment: -A1c in 11% range last month -on sliding scale insulin, FS >200 for 24h -low-dose lantus has improved sugars (3) Elevated LFTs Current Visit: No Status: Acute Priority: Medium Code(s): R94.5 - ABNORMAL RESULTS OF LIVER FUNCTION STUDIES SNOMED Code(s): 451388192 Comment: - Possibly secondary to hepatosteatosis - will need liver biopsy as outpatient (4) History of Young-en-Y gastric bypass Current Visit: Yes Status: Acute Priority: Medium Code(s): Z98.84 - BARIATRIC SURGERY STATUS SNOMED Code(s): 317938336 Comment: -multiple vitamin studies pending, may explain syndrome -Post-op day 4 from ex lap -starting lactulose for obstipation Status and Disposition: Hospitalist service has assumed care.
[2018-09-18] MEDS: Insulin GLARGINE(*) 1 UNITS UNIT SUBCUT SCH (17:10)
[2018-09-18 17:29] LABS: Anti SSA/RO Antibody <0.2 U
--- NOTE | 2018-09-18 17:36 | PN ---
Subjective Date of Service: 09/18/18 Length of Stay: 5 Days Neurology is following for paresthesia and mild lower extremity weakness. Interval History: He is resting comfortable. He reported paresthesia and allodynic type of pain this morning because he did not press the TOOL LIAISON all night. The pain is better controlled now. He does not report any new weakness. He denied any double vision. Review of Systems: Denied CP, SOB, or palpitations. Family History: Unchanged from Admission Social History: Unchanged from Admission Past Medical History: Unchanged from Admission Objective Active Medications: Calcium Citrate (Citracal Tab*) 600 mg PO BID [facility] Last Admin: 09/18/18 09:06 Dose: 600 mg Dextrose (D50w Syringe 50 Ml*) 25 gm IV PUSH ONCE PRN PRN Reason: hypoglycemia Docusate Sodium (Colace Cap*) 100 mg PO TID [facility] Last Admin: 09/18/18 14:38 Dose: 100 mg Duloxetine HCl (Cymbalta Cap*) 30 mg PO DAILY [facility] Last Admin: 09/18/18 09:05 Dose: Not Given Hydralazine HCl (Apresoline Iv*) 5 mg IV SLOW PU Q6H PRN PRN Reason: BLOOD PRESSURE Last Admin: 09/18/18 09:08 Dose: 5 mg Hydromorphone HCl (Dilaudid [employer] Grade Teacher*) 20 mg in 20 mls @ 0 mls/hr TOOL LIAISON .change Q24H [facility]; Protocol Last Admin: 09/17/18 21:35 Dose: 0.2 mls/hr Potassium Chloride/Dextrose (D5w 1/2 Ns Kcl 20 Meq 1000 Ml*) 1,000 mls @ 75 mls /hr IV .PER RATE [facility] Last Admin: 09/18/18 17:17 Dose: 75 mls/hr Immune Globulin 20 gm/ Immune (Globulin 10 gm/ IV Solution) 300 mls @ 0 mls/hr IV DAILY@1630 [facility]; Protocol Stop: 09/19/18 06:30 Immune Globulin 20 gm/ Immune (Globulin 10 gm/ IV Solution) 300 mls @ 0 mls/hr IV DAILY@1930 [facility]; Protocol Stop: 09/20/18 19:31 Insulin Glargine (Lantus(*)) 10 units SUBCUT Q24H [facility] Last Admin: 09/18/18 17:10 Dose: 10 unit Insulin Human Lispro (Humalog*) 0 units SUBCUT Q4H [facility]; Protocol Last Admin: 09/18/18 14:38 Dose: 2 unit Lactulose (Lactulose*) 30 ml PO QID [facility] Last Admin: 09/18/18 17:10 Dose: 30 ml Lisinopril (Prinivil Tab*) 20 mg PO DAILY [facility] Last Admin: 09/18/18 09:05 Dose: 20 mg Magnesium Hydroxide (Milk Of Magnesia Liq*) 30 ml PO Q6H PRN PRN Reason: CONSTIPATION Last Admin: 09/15/18 04:26 Dose: 30 ml Multivitamins (Theragran W/Minerals Liq*) 15 ml PO DAILY [facility] Last Admin: 09/18/18 09:07 Dose: 15 ml Naloxone HCl (Narcan*) 0.08 mg IV PUSH .Q2MIN PRN PRN Reason: OVERSEDATION Natural Dietary Supplement (B-12) 1,000 mcg SL DAILY [facility] Last Admin: 09/18/18 09:06 Dose: 1,000 mcg Cmcs:Non Formulary Med: Methylfolate 7. 5mg Tab 2 admin PO DAILY [facility] Last Admin: 09/18/18 09:06 Dose: 2 admin Ondansetron HCl (Zofran Inj*) 4 mg IV Q4H PRN PRN Reason: NAUSEA/VOMITING Last Admin: 09/18/18 09:17 Dose: 4 mg Polyethylene Glycol/Electrolytes (Miralax*) 34 gm PO DAILY [facility]; Protocol Last Admin: 09/18/18 09:05 Dose: 34 gm Pregabalin (Lyrica Cap(*)) 50 mg PO BID [facility] Senna (Senokot Tab*) 1 tab PO BEDTIME [facility] Vitamin B Complex/Vitamin E (B Complex-50*) 1 tab PO DAILY [facility] Last Admin: 09/18/18 09:06 Dose: 1 tab Vital Signs 09/18/18 09/18/18 09/18/18 11:14 13:00 15:00 Temperature 98.0 F Pulse Rate 81 Respiratory 20 16 16 Rate Blood Pressure 152/74 (mmHg) O2 Sat by Pulse 100 97 97 Oximetry 09/18/18 09/18/18 15:14 16:00 Temperature 99.0 F Pulse Rate 76 Respiratory 18 Rate Blood Pressure 147/81 (mmHg) O2 Sat by Pulse 97 97 Oximetry Intake and Output Last 24 Hours 02/10/3009/17/18 09/18/18 09/19/18 06:59 06:59 06:59 06:59 Intake Total 3662 3460 4408 Output Total 1175 2900 2125 850 Balance 2487 560 -2125 3558 Weight 150 lb 150 lb Intake: IV Fluids 1263 2960 4308 D5W 1/2 NS 20 meq KCL 1980 3071 LR 1263 NS (0.9%) 980 1237 IVPB 999 Thiamine 999 Oral 1400 500 100 Output: Lindsay 1175 2900 2125 850 Oxygen Devices in Use Now: Nasal Cannula Neurology Exam: General: Frail, ill appearing man who looks older than his age. HEENT: Normocephalic/atraumatic, sclera anicteric, mucous membranes moist Neck: Supple Chest: Clear to auscultation bilaterally Cardiovascular: Regular rate and rhythm without murmurs, rubs, gallop Extremities: no hammer toes or high arches. He has marked atrophy in the proximal quads bilaterally. He has thin legs. Neurological Findings: Awake, alert, and oriented to person, place, and general circumstances. Speech: fluent without dysrhythmia, repetition intact Cranial Nerve: PERRL, EOM intact, VFF, no nystagmus, face symmetric bilaterally , facial sensation intact, hearing intact to finger rub bilaterally, palate elevates symmetrically, tongue midline, SCM and Trapezius s/s. Motor: reduce tone throughout. He has fairly normal strength in the upper extremity but mild weakness graded as 4/5 symmetrically to hip flexors, knee extension, and ankle dorsiflexion R>L. Sensation: distal to proximal sensory gradient to light touch, temperature, and pin prick demarcated at the distal thighs bilaterally. He has no sensory level. Vibration 3 seconds on the right and 2 seconds on the left great toes. Intact proprioception sensation. Deep Tendon Reflex: trace throughout with absent at the knees and ankles. Finger to nose, rapid alternating movements intact without tremor, no dysdiadochokinesia Gait: wide based required on person assist. No ataxia. Result Diagrams: 09/17/18 05:26 09/17/18 05:26 Additional Lab and Data: Laboratory Tests 09/16/18 09/16/18 09/16/18 05:20 05:20 05:20 Proteinase 3 (PR3) < 0.2 Myeloperoxidase Ab < 0.2 Scl-70 Scleroderma Ab <0.2 U1-nRNP Antibody <0.2 CMV IgG Ab Positive A CMV IgM Ab Negative 09/18/18 09/18/18 09/18/18 02:13 06:20 10:44 POC Glucose (mg/dL) 121 H 139 H 163 H 09/18/18 14:33 POC Glucose (mg/dL) 216 H Microbiology and Other Data: Microbiology 09/14/18 00:17 Urine Culture - Final Urine No Growth (<1,000 CFU/mL) Assessment/Plan 1. Neuropathic pain with mild proximal lower extremity weakness in a patient with poorly controlled diabetic who has lost +200 lbs following bariatric surgery. 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 Subacute demyelinating inflmmatory polyneuropathy is also on the differential. - There has been no deterioration and seems comfortable on the current regiment. - I spoke with laboratory. All vitamins, heavy metals, and ordered labs are pending. - IVIG to be continued for a total of 5 days (2 days remaining). Confirmed dosing with pharmacy. - Thereafter, the patient may need acute rehabilitation. - Please wean him off the narcotics and continue neuropathic pain medications ( Cymbalta and Lyrica) - Started Lyrica 50 mg PO twice daily. Continue PT evaluation and treatment. Recommend outpatient evaluation at [facility] once discharged. Time spent: 25 minutes. I will continue to follow.
[2018-09-18 18:30] LABS: HSV 1 PCR, CSF Negative (Negative); HSV 2 PCR, CSF Negative (Negative)
[2018-09-18] MEDS: Senna TAB PO SCH (20:41)
[2018-09-18] MEDS: Pregabalin CAP(*) 50 MG PO SCH (20:41)
[2018-09-18 21:45] LABS: Cyclic Citrullinated Pept IgG <15.6 U
[2018-09-18 21:51] LABS: Urine Arsenic 24/Hr 8 mcg/24 h (<18); Urine Arsenic Conc 4 mcg/L; Urine Cadmium 24/Hr <0.5 mcg/24 h (<0.6); Urine Collection Duration 24 h; Urine Lead 24/Hr <1 mcg/24 h (<1); Urine Mercury 24/Hr <2 mcg/24 h (<2); Urine Volume 1900 mL
[2018-09-19] MEDS: Insulin LISPRO* 1 UNITS UNIT SUBCUT SCH ×6 (02:53→21:50)
[2018-09-19] MEDS: D5W 1/2 NS KCl 20 Meq 1000 ML* 1,000 ML IV SCH (06:36)
[2018-09-19 08:28] LABS: Vitamin A, S 28.1 mcg/dL (32.5-78.0)
[2018-09-19] MEDS ORDERED: Zinc Sulfate CAP* 220 MG PO SCH (09:00)
[2018-09-19] MEDS: Polyethylene Glycol 3350* 17 GM PACKET PO SCH (09:53)
[2018-09-19] MEDS: METHYLCOBALAMIN 1000 MCG SL SCH (09:53)
[2018-09-19] MEDS: METHYLFOLATE 7.5 MG PO SCH (09:55)
[2018-09-19] MEDS: Pregabalin CAP(*) 50 MG PO SCH ×2 (09:55→20:35)
[2018-09-19] MEDS: Lisinopril TAB* 10 MG PO SCH (09:55)
[2018-09-19] MEDS: Calcium Citrate TAB* 200 MG PO SCH ×2 (09:55→20:35)
[2018-09-19] MEDS: Multivitamins ADULT w/MIN LIQ* 15 ML UDC PO SCH (09:55)
[2018-09-19] MEDS: Docusate CAP* 100 MG PO SCH ×3 (09:55→20:35)
[2018-09-19] MEDS: Vitamin B Complex TAB PO SCH (09:56)
[2018-09-19] MEDS: DULoxetine DR CAP* 30 MG CAP.DR PO SCH (09:56)
[2018-09-19 11:28] LABS: Albumin 1850 mg/dL; CSF IGG 3.9 mg/dL (<=8.1); CSF Immunoglobulin G Synthesis 3.94 mg/24 h (<=12); Immunoglobulin G 717 mg/dL (767 - 1590)
--- NOTE | 2018-09-19 13:57 | PN ---
Subjective Date of Service: 09/19/18 Interval History: Pt c/o abd pain and LE's pain for the past 2 weeks. D/w pt to d/c Dilaudid LEAD NURSE and he agreed, although reluctantly Last BM 09/30/18, passing flatus. ambulating with a walker Family History: Unchanged from Admission Social History: Unchanged from Admission Past Medical History: Unchanged from Admission Objective Active Medications: Calcium Citrate (Citracal Tab*) 600 mg PO BID [facility] Last Admin: 09/19/18 09:55 Dose: 600 mg Dextrose (D50w Syringe 50 Ml*) 25 gm IV PUSH ONCE PRN PRN Reason: hypoglycemia Docusate Sodium (Colace Cap*) 100 mg PO TID [facility] Last Admin: 09/19/18 13:49 Dose: 100 mg Duloxetine HCl (Cymbalta Cap*) 30 mg PO DAILY [facility] Last Admin: 09/19/18 09:56 Dose: Not Given Hydralazine HCl (Apresoline Iv*) 5 mg IV SLOW PU Q6H PRN PRN Reason: BLOOD PRESSURE Last Admin: 09/18/18 09:08 Dose: 5 mg Hydromorphone HCl (Dilaudid Inj1s*) 1 mg IV SLOW PU Q4H PRN PRN Reason: PAIN Immune Globulin 20 gm/ Immune (Globulin 10 gm/ IV Solution) 300 mls @ 0 mls/hr IV DAILY@1930 [facility]; Protocol Stop: 09/20/18 19:31 Insulin Human Lispro (Humalog*) 0 units SUBCUT Q4H [facility]; Protocol Last Admin: 09/19/18 13:49 Dose: 2 unit Lactulose (Lactulose*) 30 ml PO QID [facility] Last Admin: 09/19/18 13:49 Dose: 30 ml Lisinopril (Prinivil Tab*) 20 mg PO DAILY [facility] Last Admin: 09/19/18 09:55 Dose: 20 mg Magnesium Hydroxide (Milk Of Magnesia Liq*) 30 ml PO Q6H PRN PRN Reason: CONSTIPATION Last Admin: 09/15/18 04:26 Dose: 30 ml Multivitamins (Theragran W/Minerals Liq*) 15 ml PO DAILY [facility] Last Admin: 09/19/18 09:55 Dose: 15 ml Naloxone HCl (Narcan*) 0.08 mg IV PUSH .Q2MIN PRN PRN Reason: OVERSEDATION Natural Dietary Supplement (B-12) 1,000 mcg SL DAILY [facility] Last Admin: 09/19/18 09:53 Dose: 1,000 mcg Cmcs:Non Formulary Med: Methylfolate 7. 5mg Tab 2 admin PO DAILY [facility] Last Admin: 09/19/18 09:55 Dose: 2 admin Ondansetron HCl (Zofran Inj*) 4 mg IV Q4H PRN PRN Reason: NAUSEA/VOMITING Last Admin: 09/18/18 18:34 Dose: 4 mg Oxycodone HCl (Roxycodone Tab*) 10 mg PO Q4H PRN PRN Reason: PAIN Polyethylene Glycol/Electrolytes (Miralax*) 34 gm PO DAILY [facility]; Protocol Last Admin: 09/19/18 09:53 Dose: 34 gm Pregabalin (Lyrica Cap(*)) 50 mg PO BID [facility] Last Admin: 09/19/18 09:55 Dose: 50 mg Senna (Senokot Tab*) 1 tab PO BEDTIME [facility] Last Admin: 09/18/18 20:41 Dose: 1 tab Vitamin B Complex/Vitamin E (B Complex-50*) 1 tab PO DAILY [facility] Last Admin: 09/19/18 09:56 Dose: 1 tab Vital Signs - 8 hr 09/19/18 09/19/18 09/19/18 07:00 07:12 07:30 Temperature 98.7 F Pulse Rate 82 Respiratory 16 16 Rate Blood Pressure 172/91 176/96 (mmHg) O2 Sat by Pulse 97 96 Oximetry 09/19/18 09/19/18 09/19/18 08:00 09:00 09:55 Temperature Pulse Rate Respiratory 18 16 18 Rate Blood Pressure (mmHg) O2 Sat by Pulse 97 97 Oximetry 09/19/18 09/19/18 09/19/18 11:00 11:11 12:00 Temperature 98.4 F Pulse Rate 76 Respiratory 16 17 18 Rate Blood Pressure 153/85 (mmHg) O2 Sat by Pulse 97 96 Oximetry Oxygen Devices in Use Now: Nasal Cannula Appearance: 48 yo m in nAD, aAOx3 Eyes: No Scleral Icterus, PERRLA Ears/Nose/Mouth/Throat: NL Teeth, Lips, Gums, Mucous Membranes Moist Neck: NL Appearance and Movements; NL JVP, Trachea Midline Respiratory: Symmetrical Chest Expansion and Respiratory Effort, Clear to Auscultation Cardiovascular: NL Sounds; No Murmurs; No JVD, RRR Abdominal: - - distended, palpable loops of bowel noted, soft, diffusely tender , no renound, no guarding, BS+ Lymphatic: No Cervical Adenopathy Extremities: No Edema, No Clubbing, Cyanosis, - - leg tender to palpation Skin: No Rash or Ulcers, No Nodules or Sclerosis, - - small insions after OR with steris strips and mild erythema, no dehiscence or infection Neurological: Alert and Oriented x 3, - - minimally decreased motor in b/l LE's Result Diagrams: 09/17/18 05:26 09/17/18 05:26 Additional Lab and Data: Laboratory Tests 09/16/18 09/16/18 09/16/18 05:20 05:20 05:20 Proteinase 3 (PR3) < 0.2 Myeloperoxidase Ab < 0.2 Scl-70 Scleroderma Ab <0.2 U1-nRNP Antibody <0.2 CMV IgG Ab Positive A CMV IgM Ab Negative 09/18/18 09/18/18 09/18/18 02:13 06:20 10:44 POC Glucose (mg/dL) 121 H 139 H 163 H 09/18/18 14:33 POC Glucose (mg/dL) 216 H Microbiology and Other Data: Microbiology 09/14/18 00:17 Urine Culture - Final Urine No Growth (<1,000 CFU/mL) Assess/Plan/Problems-Billing 48 yo M s/p gastric bypass 2012, now with ileus and ex lap on 1= and lysis of adhesions, neuropathic pain with mild proximal lower extremity weakness in a patient with poorly controlled diabetic who has lost +200 lbs following bariatric surgery. 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 S/p ex lap and lysis of adhesions on 10/02 post op ileus noted. cont Lactulose, on bariatric diet. Ambulation encouraged (2) Diabetes Comment: - Type 2 DM. -Continue ISS. Was on D5 infusion, now disontinued, due to that will d/c Lantus (3) History of Young-en-Y gastric bypass Current Visit: Yes Comment: -multiple vitamin studies pending, may explain neuropathy -Post-op day 5 from ex lap (4) Neuropathy, lumbosacral plexus Comment: -discussed extensively with Dr. Banks, plan to complete IVIg, has doubt about AIDP (Guillane [place]) -started Cymbalta and Lyrica for neuropathic pain. D/c Dilaudid LEAD NURSE -MRI brain reviewed with patient (neg) (5) Zinc deficiency Comment: due to possibility of blocking other vitamin absorbtion stopped by neurology (6) Elevated LFTs Comment: - Possibly secondary to hepatosteatosis - will need liver biopsy as outpatient (7) Vitamin D deficiency Comment: got a dose of weekly wit D2 50 000 U on 09/15/18 (8) DVT prophylaxis Comment: HSQ Status and Disposition: Hospitalist service has assumed care.
[2018-09-19] MEDS: oxyCODONE TAB* 5 MG TAB PO PRN ×3 (14:44→23:22)
[2018-09-19] MEDS: HYDROmorphone INJ1* 1 MG/ML SYRINGE IV SLOW PU PRN ×2 (16:49→20:36)
--- NOTE | 2018-09-19 18:19 | PN ---
Subjective Date of Service: 09/19/18 Length of Stay: 6 Days Neurology is following for neuropathy. Interval History: He is nervous about getting off the dilaudid [employer] pump. He still has pain, especially when getting up and ambulating. Last night was his best as he felt relief of burning pain in his feet and legs after the IVIG. He can move freely now with a walker. He still has discomfort around his low back and abdomen region. He denied any burning paresthesia or weakness in the upper extremities. He denied any shortness of breath. He seems to be tolerating the Lyrica well. Labs: Copper: normal at 0.88 Zinc: low at 0.44 ( 0.66-1.10) Vitamin D: Low 7.6 CMV IgG Ab: positive B12: normal Vitamin A: 28.1 Aldolase: 8.1 Review of Systems: Denied CP, SOB, or palpitations. Family History: Unchanged from Admission Social History: Unchanged from Admission Past Medical History: Unchanged from Admission Objective Active Medications: Calcium Citrate (Citracal Tab*) 600 mg PO BID [facility] Last Admin: 09/19/18 09:55 Dose: 600 mg Dextrose (D50w Syringe 50 Ml*) 25 gm IV PUSH ONCE PRN PRN Reason: hypoglycemia Docusate Sodium (Colace Cap*) 100 mg PO TID [facility] Last Admin: 09/19/18 13:49 Dose: 100 mg Duloxetine HCl (Cymbalta Cap*) 30 mg PO DAILY [facility] Last Admin: 09/19/18 09:56 Dose: Not Given Heparin Sodium (Porcine) (Heparin Vial(*)) 5,000 units SUBCUT Q8HR [facility] Hydralazine HCl (Apresoline Iv*) 5 mg IV SLOW PU Q6H PRN PRN Reason: BLOOD PRESSURE Last Admin: 09/18/18 09:08 Dose: 5 mg Hydromorphone HCl (Dilaudid Inj1s*) 1 mg IV SLOW PU Q4H PRN PRN Reason: PAIN Last Admin: 09/19/18 16:49 Dose: 1 mg Immune Globulin 20 gm/ Immune (Globulin 10 gm/ IV Solution) 300 mls @ 0 mls/hr IV DAILY@1930 [facility]; Protocol Stop: 09/20/18 19:31 Insulin Human Lispro (Humalog*) 0 units SUBCUT Q4H [facility]; Protocol Last Admin: 09/19/18 18:11 Dose: 1 unit Lactulose (Lactulose*) 30 ml PO QID [facility] Last Admin: 09/19/18 18:11 Dose: 30 ml Lisinopril (Prinivil Tab*) 20 mg PO DAILY [facility] Last Admin: 09/19/18 09:55 Dose: 20 mg Magnesium Hydroxide (Milk Of Magnesia Liq*) 30 ml PO Q6H PRN PRN Reason: CONSTIPATION Last Admin: 09/15/18 04:26 Dose: 30 ml Multivitamins (Theragran W/Minerals Liq*) 15 ml PO DAILY [facility] Last Admin: 09/19/18 09:55 Dose: 15 ml Naloxone HCl (Narcan*) 0.08 mg IV PUSH .Q2MIN PRN PRN Reason: OVERSEDATION Natural Dietary Supplement (B-12) 1,000 mcg SL DAILY [facility] Last Admin: 09/19/18 09:53 Dose: 1,000 mcg Cmcs:Non Formulary Med: Methylfolate 7. 5mg Tab 2 admin PO DAILY [facility] Last Admin: 09/19/18 09:55 Dose: 2 admin Ondansetron HCl (Zofran Inj*) 4 mg IV Q4H PRN PRN Reason: NAUSEA/VOMITING Last Admin: 09/18/18 18:34 Dose: 4 mg Oxycodone HCl (Roxycodone Tab*) 10 mg PO Q4H PRN PRN Reason: PAIN Last Admin: 09/19/18 14:44 Dose: 10 mg Polyethylene Glycol/Electrolytes (Miralax*) 34 gm PO DAILY [facility]; Protocol Last Admin: 09/19/18 09:53 Dose: 34 gm Pregabalin (Lyrica Cap(*)) 50 mg PO BID [facility] Last Admin: 09/19/18 09:55 Dose: 50 mg Senna (Senokot Tab*) 1 tab PO BEDTIME [facility] Last Admin: 09/18/18 20:41 Dose: 1 tab Vitamin B Complex/Vitamin E (B Complex-50*) 1 tab PO DAILY [facility] Last Admin: 09/19/18 09:56 Dose: 1 tab Vital Signs 09/18/18 09/18/18 09/18/18 18:15 18:30 18:45 Temperature Pulse Rate 75 77 75 Respiratory Rate Blood Pressure 142/79 144/81 147/78 (mmHg) O2 Sat by Pulse 100 99 99 Oximetry 09/18/18 09/18/18 09/18/18 18:50 19:00 19:15 Temperature 98.3 F 98.9 F Pulse Rate 77 81 75 Respiratory 15 Rate Blood Pressure 164/92 154/86 (mmHg) O2 Sat by Pulse 100 98 98 Oximetry 09/18/18 09/18/18 09/18/18 19:25 19:30 19:42 Temperature Pulse Rate 73 75 Respiratory 15 15 Rate Blood Pressure 159/85 (mmHg) O2 Sat by Pulse 95 99 Oximetry 09/18/18 09/18/18 09/18/18 19:45 20:00 20:15 Temperature Pulse Rate 73 76 75 Respiratory Rate Blood Pressure 153/87 162/86 157/89 (mmHg) O2 Sat by Pulse 99 99 100 Oximetry 09/18/18 09/18/18 09/18/18 20:30 20:41 20:45 Temperature Pulse Rate 72 77 Respiratory 18 Rate Blood Pressure 151/87 162/95 (mmHg) O2 Sat by Pulse 100 99 Oximetry 09/18/18 09/18/18 09/18/18 21:00 21:33 22:00 Temperature 98.6 F Pulse Rate 80 80 Respiratory 16 16 Rate Blood Pressure 154/87 145/87 (mmHg) O2 Sat by Pulse 99 100 100 Oximetry 09/18/18 09/18/18 09/18/18 22:30 22:56 23:00 Temperature 99.3 F Pulse Rate 77 73 74 Respiratory 16 Rate Blood Pressure 150/84 150/84 (mmHg) O2 Sat by Pulse 100 99 99 Oximetry 09/18/18 09/19/18 09/19/18 23:30 00:00 00:26 Temperature Pulse Rate 77 72 Respiratory Rate Blood Pressure 143/87 145/82 (mmHg) O2 Sat by Pulse 99 98 97 Oximetry 09/19/18 09/19/18 09/19/18 00:30 00:40 01:00 Temperature 98.9 F Pulse Rate 71 78 Respiratory 15 Rate Blood Pressure 153/83 (mmHg) O2 Sat by Pulse 98 98 97 Oximetry 09/19/18 09/19/18 09/19/18 03:00 04:11 05:00 Temperature 98.9 F Pulse Rate 85 Respiratory 16 14 16 Rate Blood Pressure 142/75 (mmHg) O2 Sat by Pulse 98 94 95 Oximetry 09/19/18 09/19/18 09/19/18 07:00 07:12 07:30 Temperature 98.7 F Pulse Rate 82 Respiratory 16 16 Rate Blood Pressure 172/91 176/96 (mmHg) O2 Sat by Pulse 97 96 Oximetry 09/19/18 09/19/18 09/19/18 08:00 09:00 09:55 Temperature Pulse Rate Respiratory 18 16 18 Rate Blood Pressure (mmHg) O2 Sat by Pulse 97 97 Oximetry 09/19/18 09/19/18 09/19/18 11:00 11:11 12:00 Temperature 98.4 F Pulse Rate 76 Respiratory 16 17 18 Rate Blood Pressure 153/85 (mmHg) O2 Sat by Pulse 97 96 Oximetry 09/19/18 09/19/18 09/19/18 13:00 14:44 14:58 Temperature Pulse Rate Respiratory 18 16 16 Rate Blood Pressure (mmHg) O2 Sat by Pulse 97 Oximetry 09/19/18 09/19/18 09/19/18 16:45 16:49 17:18 Temperature 98.5 F Pulse Rate 87 Respiratory 18 20 Rate Blood Pressure 194/108 172/98 (mmHg) O2 Sat by Pulse 97 Oximetry 09/19/18 17:43 Temperature Pulse Rate Respiratory Rate Blood Pressure 152/88 (mmHg) O2 Sat by Pulse Oximetry Intake and Output Last 24 Hours 09/17/18 09/18/18 09/19/18 09/20/18 06:59 06:59 06:59 06:59 Intake Total 3460 4739 1302 Output Total 2900 2125 1900 1500 Balance 560 -2125 2839 -198 Weight 150 lb Intake: IV Fluids 2960 4639 942 D5W 1/2 NS 20 meq KCL 1980 3260 380 IG 74 NS (0.9%) 980 1305 562 Oral 500 100 360 Output: Lindsay 2900 2125 1900 1500 Oxygen Devices in Use Now: Nasal Cannula Neurology Exam: General: Frail, ill appearing man who looks older than his age. HEENT: Normocephalic/atraumatic, sclera anicteric, mucous membranes moist Neck: Supple Chest: Clear to auscultation bilaterally Cardiovascular: Regular rate and rhythm without murmurs, rubs, gallop Extremities: no hammer toes or high arches. He has marked atrophy in the proximal quads bilaterally. He has thin legs. Neurological Findings: Awake, alert, and oriented to person, place, and general circumstances. Speech: fluent without dysrhythmia, repetition intact Cranial Nerve: PERRL, EOM intact, VFF, no nystagmus, face symmetric bilaterally , facial sensation intact, hearing intact to finger rub bilaterally, palate elevates symmetrically, tongue midline, SCM and Trapezius s/s. Motor: reduce tone throughout. Atrophy of the quadriceps and gluteus muscles bilaterally. He has fairly normal strength in the upper extremity but mild weakness graded as 4/5 symmetrically to hip flexors, knee extension, and ankle dorsiflexion R>L. Sensation: distal to proximal sensory gradient to light touch, temperature, and pin prick demarcated at the distal thighs bilaterally. He has no sensory level. Vibration 5 seconds on the right and 4 seconds on the left great toes. Intact proprioception sensation. Deep Tendon Reflex: trace throughout with absent at the knees and ankles. Finger to nose, rapid alternating movements intact without tremor, no dysdiadochokinesia Gait: wide based required on person assist. No ataxia. Result Diagrams: 09/17/18 05:26 09/17/18 05:26 Additional Lab and Data: Laboratory Tests 09/16/18 09/16/18 09/16/18 05:20 05:20 05:20 Proteinase 3 (PR3) < 0.2 Myeloperoxidase Ab < 0.2 Scl-70 Scleroderma Ab <0.2 U1-nRNP Antibody <0.2 CMV IgG Ab Positive A CMV IgM Ab Negative 09/18/18 09/18/18 09/18/18 02:13 06:20 10:44 POC Glucose (mg/dL) 121 H 139 H 163 H 09/18/18 14:33 POC Glucose (mg/dL) 216 H Microbiology and Other Data: Microbiology 09/14/18 00:17 Urine Culture - Final Urine No Growth (<1,000 CFU/mL) Assessment/Plan 1. Neuropathic pain with mild proximal lower extremity weakness in a patient with poorly controlled diabetic who has lost +200 lbs following bariatric surgery. 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 Subacute demyelinating inflammatory polyneuropathy is also on the differential especially since he seems to be responding well to IVIG treatment. Recommendations: - There has been no deterioration and seems comfortable on the current regiment. - IVIG to be continued for a total of 5 days (1 day remaining). Confirmed dosing with pharmacy. - Thereafter, the patient may need acute rehabilitation. - Continue weaning off the narcotic therapy. - Tolerating Lyrica 50 mg PO twice daily. - Continue PT evaluation and treatment. - Recommend outpatient evaluation at [facility]rom[facility] clinic once discharged. - Repeat NCS/EMG to do more comprehensive examination. 2. Zinc deficiency- he is on a multivitamin which has approximately 17 mg of Zinc. Large doses of Zinc can block the absorption of major vitamins especially vitamin B12. Also, zinc in diabetic patients can increase the hemoglobin A1c level and lead to worsening glucose intolerance. Time spent: 25 minutes. I will continue to follow.
[2018-09-19] MEDS: Immune Globuln (PRIVIGEN) 30 GM in PREMIX IV SCH ×3 (19:36)
[2018-09-19] MEDS: Ondansetron INJ* 2 MG/ML VIAL IV PRN (19:44)
[2018-09-19] MEDS: Senna TAB PO SCH (20:35)
[2018-09-19] MEDS: Heparin VIAL(*) 5000 UNITS/ML VIAL (FIVE THOUSAND) SUBCUT SCH (21:48)
[2018-09-20] MEDS: Ondansetron INJ* 2 MG/ML VIAL IV PRN ×3 (00:06→21:33)
[2018-09-20 01:34] LABS: Vitamin E 8.9 mg/L (5.5 - 17.0)
[2018-09-20] MEDS: Insulin LISPRO* 1 UNITS UNIT SUBCUT SCH ×6 (02:47→22:04)
[2018-09-20] MEDS: HYDROmorphone INJ1* 1 MG/ML SYRINGE IV SLOW PU PRN ×4 (02:52→15:56)
[2018-09-20] MEDS: oxyCODONE TAB* 5 MG TAB PO PRN ×5 (03:01→21:46)
[2018-09-20 05:59] LABS: ABS Basophils 0.1 10^3/ul (0-0.2); ABS Eosinophils 0.1 10^3/ul (0-0.6); ABS Lymphocytes 1.4 10^3/ul (1.0-4.8); ABS Neutrophils 3.3 10^3/ul (1.5-7.7); ABS Nucleated RBC 0 10^3/ul; Eosinophil % 2.6 %; Hematocrit 34 % (42-52); Hemoglobin 11.7 g/dl (14.0-18.0); Lymphocyte % 23.5 %; Mean Corpuscular HGB Conc 34 g/dl (31-36); Mean Corpuscular Hemoglobin 29 pg (27-31); Mean Corpuscular Volume 86 fL (80-94); Mean Platelet Volume 7.2 fL (7.4-10.4); Nucleated Red Blood Cells % 0; Platelet Count 198 10^3/ul (150-450); Red Blood Count 3.98 10^6/ul (4.00-5.40); Red Cell Distribution Width 12 % (10.5-15); White Blood Count 5.9 10^3/ul (3.5-10.8)
[2018-09-20 06:23] LABS: BUN/Creatinine Ratio 24.1 (8-20); Blood Urea Nitrogen 14 mg/dL (6-24); CO2 Carbon Dioxide 30 mmol/L (22-32); Calcium 7.8 mg/dL (8.6-10.3); Chloride 99 mmol/L (101-111); EGFR African American 181.7 (>60); EGFR Non-African American 150.2 (>60); Glucose 117 mg/dL (70-100); Magnesium 1.7 mg/dL (1.9-2.7); Potassium 3.8 mmol/L (3.5-5.0); Sodium 129 mmol/L (135-145)
[2018-09-20] MEDS: Heparin VIAL(*) 5000 UNITS/ML VIAL (FIVE THOUSAND) SUBCUT SCH ×2 (06:56→13:49)
[2018-09-20] MEDS ORDERED: Magnesium Sulfate 2 GM IV* 2 GM/50 ML BAG IVPB ONE (07:52)
[2018-09-20] MEDS ORDERED: NS 0.9% 1000 ML** 1,000 ML IV SCH (08:00)
[2018-09-20] MEDS: METHYLFOLATE 7.5 MG PO SCH (08:35)
[2018-09-20] MEDS: Multivitamins ADULT w/MIN LIQ* 15 ML UDC PO SCH (08:35)
[2018-09-20] MEDS: Polyethylene Glycol 3350* 17 GM PACKET PO SCH (08:35)
[2018-09-20] MEDS: Calcium Citrate TAB* 200 MG PO SCH ×2 (08:36→21:39)
[2018-09-20] MEDS: Docusate CAP* 100 MG PO SCH (08:36)
[2018-09-20] MEDS: Lisinopril TAB* 10 MG PO SCH (08:36)
[2018-09-20] MEDS: METHYLCOBALAMIN 1000 MCG SL SCH (08:37)
[2018-09-20] MEDS: Pregabalin CAP(*) 50 MG PO SCH ×2 (08:37→21:39)
[2018-09-20] MEDS: Vitamin B Complex TAB PO SCH (08:37)
[2018-09-20] MEDS: DULoxetine DR CAP* 30 MG CAP.DR PO SCH ×2 (08:37→08:39)
[2018-09-20] MEDS ORDERED: Morphine TAB Extended Release (*) 15 MG TAB.ER PO SCH (09:00)
[2018-09-20] MEDS ORDERED: PEG 3000 GI LAVAGE* 1 GALLON PO ONE (11:03)
[2018-09-20 11:56] LABS: Vitamin K Level 0.47 ng/mL (0.10-2.20)
--- NOTE | 2018-09-20 12:44 | PN ---
Subjective Date of Service: 09/20/18 Length of Stay: 7 Days Neurology is following for neuropathic pain and proximal lower limb weakness. Interval History: The patient has not had a bowel movement for over 2 weeks. He has increase in pain since the [employer] pump was discontinued. He had trouble sleeping due to pain. The pain is localized in bilateral hips and low back region, radiating down the posterior legs, and associated with mild lower extremity weakness. He is tender all throughout, but mostly in the lower extremity. Laboratory findings thus far: Sodium: 129 Chloride: 99 Creatinine: 0.58 Glucose: 255 Magnesium: 1.7 AST/ALT/ and alkaline phosphatase: elevated Vitamin A: 28.1 Vitamin B1: 206 Vitamin D: 7.6 Vitamin E: 8.9 Vitamin K: 0.47 Homocysteine: 5 Zinc: 0.44 (L) Selenium: 93 Mercury <1 Lead <1 Arsenic 8 ZOLTAN: 0.6 CMV IgG Ab: positive IgM: Negative ESR: 39 CRP on 09/13 was normal at 5.83 but on 09/15/2018 jumped to 46. 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 Reviewed the EMG/NCS study: the left tibial and peroneal motor responses do show demyelinating pattern of slowing on conduction velocity. Review of Systems: Denied CP, SOB, or palpitations. Family History: Unchanged from Admission Social History: Unchanged from Admission Past Medical History: Unchanged from Admission Objective Active Medications: Calcium Citrate (Citracal Tab*) 600 mg PO BID [facility] Last Admin: 09/20/18 08:36 Dose: 600 mg Dextrose (D50w Syringe 50 Ml*) 25 gm IV PUSH ONCE PRN PRN Reason: hypoglycemia Duloxetine HCl (Cymbalta Cap*) 30 mg PO DAILY [facility] Last Admin: 09/20/18 08:39 Dose: 30 mg Heparin Sodium (Porcine) (Heparin Vial(*)) 5,000 units SUBCUT Q8HR [facility] Last Admin: 09/20/18 06:56 Dose: 5,000 units Hydralazine HCl (Apresoline Iv*) 5 mg IV SLOW PU Q6H PRN PRN Reason: BLOOD PRESSURE Last Admin: 09/18/18 09:08 Dose: 5 mg Hydromorphone HCl (Dilaudid Inj1s*) 1 mg IV SLOW PU Q4H PRN PRN Reason: PAIN Last Admin: 09/20/18 11:17 Dose: 1 mg Immune Globulin 20 gm/ Immune (Globulin 10 gm/ IV Solution) 300 mls @ 0 mls/hr IV DAILY@1930 [facility]; Protocol Stop: 09/20/18 19:31 Last Admin: 09/19/18 19:36 Dose: 20.4 mls/hr Sodium Chloride (Ns 0.9% 1000 Ml) 1,000 mls @ 75 mls/hr IV PER RATE [facility] Last Admin: 09/20/18 08:35 Dose: 75 mls/hr Insulin Human Lispro (Humalog*) 0 units SUBCUT Q4H [facility]; Protocol Last Admin: 09/20/18 11:16 Dose: 3 unit Lactulose (Lactulose*) 30 ml PO QID [facility] Last Admin: 09/20/18 08:35 Dose: 30 ml Lisinopril (Prinivil Tab*) 20 mg PO DAILY [facility] Last Admin: 09/20/18 08:36 Dose: 20 mg Magnesium Hydroxide (Milk Of Magnesia Liq*) 30 ml PO Q6H PRN PRN Reason: CONSTIPATION Last Admin: 09/15/18 04:26 Dose: 30 ml Morphine Sulfate (Ms Contin(*)) 15 mg PO Q12H [facility] Last Admin: 09/20/18 08:38 Dose: 15 mg Multivitamins (Theragran W/Minerals Liq*) 15 ml PO DAILY [facility] Last Admin: 09/20/18 08:35 Dose: 15 ml Naloxone HCl (Narcan*) 0.08 mg IV PUSH .Q2MIN PRN PRN Reason: OVERSEDATION Natural Dietary Supplement (B-12) 1,000 mcg SL DAILY [facility] Last Admin: 09/20/18 08:37 Dose: 1,000 mcg Cmcs:Non Formulary Med: Methylfolate 7. 5mg Tab 2 admin PO DAILY [facility] Last Admin: 09/20/18 08:35 Dose: 2 admin Ondansetron HCl (Zofran Inj*) 4 mg IV Q4H PRN PRN Reason: NAUSEA/VOMITING Last Admin: 09/20/18 11:14 Dose: 4 mg Oxycodone HCl (Roxycodone Tab*) 10 mg PO Q4H PRN PRN Reason: PAIN Last Admin: 09/20/18 11:16 Dose: 10 mg Polyethylene Glycol/Electrolytes (Miralax*) 34 gm PO DAILY [facility]; Protocol Last Admin: 09/20/18 08:35 Dose: 34 gm Pregabalin (Lyrica Cap(*)) 50 mg PO BID [facility] Last Admin: 09/20/18 08:37 Dose: 50 mg Senna (Senokot Tab*) 1 tab PO BEDTIME [facility] Last Admin: 09/19/18 20:35 Dose: 1 tab Vitamin B Complex/Vitamin E (B Complex-50*) 1 tab PO DAILY [facility] Last Admin: 09/20/18 08:37 Dose: 1 tab Vital Signs 09/20/18 09/20/18 09/20/18 06:57 07:25 08:00 Temperature 98.9 F Pulse Rate 72 Respiratory 16 14 18 Rate Blood Pressure 129/67 (mmHg) O2 Sat by Pulse 94 94 Oximetry 09/20/18 09/20/18 09/20/18 08:37 08:38 11:16 Temperature Pulse Rate Respiratory 16 18 20 Rate Blood Pressure (mmHg) O2 Sat by Pulse Oximetry 09/20/18 09/20/18 11:17 11:34 Temperature Pulse Rate Respiratory 18 18 Rate Blood Pressure (mmHg) O2 Sat by Pulse Oximetry Intake and Output Last 24 Hours 09/18/18 09/19/18 09/20/18 09/21/18 06:59 06:59 06:59 06:59 Intake Total 4739 1302 1038 Output Total 2125 1900 3175 Balance -2125 2839 -1873 1038 Weight 150 lb Intake: IV Fluids 4639 942 30 D5W 1/2 NS 20 meq KCL 3260 380 IG 74 NS (0.9%) 1305 562 30 IVPB 288 IG 288 Oral 100 360 720 Output: Lindsay 2125 1900 3175 Other: # Bowel Movements 0 Oxygen Devices in Use Now: None Neurology Exam: General: General: Frail, ill appearing man who looks older than his age. HEENT: Normocephalic/atraumatic, sclera anicteric, mucous membranes moist Neck: Supple Chest: Clear to auscultation bilaterally Cardiovascular: Regular rate and rhythm without murmurs, rubs, gallop Extremities: no hammer toes or high arches. He has marked atrophy in the proximal quads bilaterally. He has thin legs. Neurological Findings: Awake, alert, and oriented to person, place, and general circumstances. Speech: fluent without dysrhythmia, repetition intact Cranial Nerve: PERRL, EOM intact, VFF, no nystagmus, face symmetric bilaterally , facial sensation intact, hearing intact to finger rub bilaterally, palate elevates symmetrically, tongue midline, SCM and Trapezius s/s. Motor: reduce tone throughout. Atrophy of the quadriceps and gluteus muscles bilaterally. He has fairly normal strength in the upper extremity but mild weakness graded as 4/5 symmetrically to hip flexors, knee extension, and ankle dorsiflexion R>L. Sensation: distal to proximal sensory gradient to light touch, temperature, and pin prick demarcated at the distal thighs bilaterally. He has no sensory level. Vibration 5 seconds on the right and 4 seconds on the left great toes. Intact proprioception sensation. Deep Tendon Reflex: trace throughout with absent at the knees and ankles. Finger to nose, rapid alternating movements intact without tremor, no dysdiadochokinesia Gait: wide based required on person assist. No ataxia. Result Diagrams: 09/20/18 05:35 09/20/18 05:35 Additional Lab and Data: Laboratory Tests 09/16/18 09/16/18 09/16/18 05:20 05:20 05:20 Proteinase 3 (PR3) < 0.2 Myeloperoxidase Ab < 0.2 Scl-70 Scleroderma Ab <0.2 U1-nRNP Antibody <0.2 CMV IgG Ab Positive A CMV IgM Ab Negative 09/18/18 09/18/18 09/18/18 02:13 06:20 10:44 POC Glucose (mg/dL) 121 H 139 H 163 H 09/18/18 14:33 POC Glucose (mg/dL) 216 H Microbiology and Other Data: Microbiology 09/14/18 00:17 Urine Culture - Final Urine No Growth (<1,000 CFU/mL) Assessment/Plan 1. Neuropathic pain with mild proximal lower extremity weakness in a patient with poorly controlled diabetic who has lost +200 lbs following bariatric surgery. 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 Other differential diagnosis include atypical subacute-chronic inflammatory demyelinating polyneuropathy (CIDP). Both diagnosis can present with severe autonomic neuropathy which may be contributing to the patient's urinary retention and severe constipation. 2. Severe constipation- this is in part due to opioid use in concomitant with the neuropathy process. Defer treatment to the primary team but some consideration include bulk laxatives, osmotics in combination with increased fiber intake and extra fluids. Recommendations: - IVIG day 5 today. - Prednisone may be another option after IVIG. - Defer the constipation to the primary team. - Can increase Lyrica to 75 mg twice daily. - Continue PT evaluation and treatment. - Recommend outpatient evaluation at [facility] Neuromuscular clinic once discharged. I spoke with Dr. Charly Watts from [facility]- Neuromuscular department. He will present the case with other neuromuscular providers for an opinoin and will get back to me. An MRI lumbar spine with contrast was discussed to look for any enhancement of the nerve roots or enlargement of the nerve roots which can be seen predominately in CIDP. The MRI has been ordered. I also ordered SPEP and vitamin B6 levels. Time spent: 40 minutes. I will continue to follow.
--- NOTE | 2018-09-20 14:44 | PN ---
Subjective Date of Service: 09/20/18 Interval History: Pt's pain was uncontrolled this AM. now is much better. He is sitting up and eating spaghetti and meatballs. Pain in b/l LE's still requires tx with IV Dilaudid as per pt Family History: Unchanged from Admission Social History: Unchanged from Admission Past Medical History: Unchanged from Admission Objective Active Medications: Calcium Citrate (Citracal Tab*) 600 mg PO BID [facility] Last Admin: 09/20/18 08:36 Dose: 600 mg Dextrose (D50w Syringe 50 Ml*) 25 gm IV PUSH ONCE PRN PRN Reason: hypoglycemia Duloxetine HCl (Cymbalta Cap*) 30 mg PO DAILY [facility] Last Admin: 09/20/18 08:39 Dose: 30 mg Heparin Sodium (Porcine) (Heparin Vial(*)) 5,000 units SUBCUT Q8HR [facility] Last Admin: 09/20/18 13:49 Dose: 5,000 units Hydralazine HCl (Apresoline Iv*) 5 mg IV SLOW PU Q6H PRN PRN Reason: BLOOD PRESSURE Last Admin: 09/18/18 09:08 Dose: 5 mg Hydromorphone HCl (Dilaudid Inj1s*) 1 mg IV SLOW PU Q4H PRN PRN Reason: PAIN Last Admin: 09/20/18 11:17 Dose: 1 mg Immune Globulin 20 gm/ Immune (Globulin 10 gm/ IV Solution) 300 mls @ 0 mls/hr IV DAILY@1930 [facility]; Protocol Stop: 09/20/18 19:31 Last Admin: 09/19/18 19:36 Dose: 20.4 mls/hr Sodium Chloride (Ns 0.9% 1000 Ml) 1,000 mls @ 75 mls/hr IV PER RATE [facility] Last Admin: 09/20/18 08:35 Dose: 75 mls/hr Insulin Human Lispro (Humalog*) 0 units SUBCUT Q4H [facility]; Protocol Last Admin: 09/20/18 13:56 Dose: 1 unit Lactulose (Lactulose*) 30 ml PO QID [facility] Last Admin: 09/20/18 13:49 Dose: 30 ml Lisinopril (Prinivil Tab*) 20 mg PO DAILY [facility] Last Admin: 09/20/18 08:36 Dose: 20 mg Magnesium Hydroxide (Milk Of Magnesia Liq*) 30 ml PO Q6H PRN PRN Reason: CONSTIPATION Last Admin: 09/15/18 04:26 Dose: 30 ml Morphine Sulfate (Ms Contin(*)) 15 mg PO Q12H [facility] Last Admin: 09/20/18 08:38 Dose: 15 mg Multivitamins (Theragran W/Minerals Liq*) 15 ml PO DAILY [facility] Last Admin: 09/20/18 08:35 Dose: 15 ml Naloxone HCl (Narcan*) 0.08 mg IV PUSH .Q2MIN PRN PRN Reason: OVERSEDATION Natural Dietary Supplement (B-12) 1,000 mcg SL DAILY [facility] Last Admin: 09/20/18 08:37 Dose: 1,000 mcg Cmcs:Non Formulary Med: Methylfolate 7. 5mg Tab 2 admin PO DAILY [facility] Last Admin: 09/20/18 08:35 Dose: 2 admin Ondansetron HCl (Zofran Inj*) 4 mg IV Q4H PRN PRN Reason: NAUSEA/VOMITING Last Admin: 09/20/18 11:14 Dose: 4 mg Oxycodone HCl (Roxycodone Tab*) 10 mg PO Q4H PRN PRN Reason: PAIN Last Admin: 09/20/18 11:16 Dose: 10 mg Polyethylene Glycol/Electrolytes (Miralax*) 34 gm PO DAILY [facility]; Protocol Last Admin: 09/20/18 08:35 Dose: 34 gm Pregabalin (Lyrica Cap(*)) 50 mg PO BID [facility] Last Admin: 09/20/18 08:37 Dose: 50 mg Senna (Senokot Tab*) 1 tab PO BEDTIME [facility] Last Admin: 09/19/18 20:35 Dose: 1 tab Vitamin B Complex/Vitamin E (B Complex-50*) 1 tab PO DAILY [facility] Last Admin: 09/20/18 08:37 Dose: 1 tab Vital Signs - 8 hr 09/20/18 09/20/18 09/20/18 06:56 06:57 07:25 Temperature 98.9 F Pulse Rate 72 Respiratory 16 16 14 Rate Blood Pressure 129/67 (mmHg) O2 Sat by Pulse 94 Oximetry 09/20/18 09/20/18 09/20/18 08:00 08:37 08:38 Temperature Pulse Rate Respiratory 18 16 18 Rate Blood Pressure (mmHg) O2 Sat by Pulse 94 Oximetry 09/20/18 09/20/1809/20/19 11:16 11:17 11:34 Temperature Pulse Rate Respiratory 20 18 18 Rate Blood Pressure (mmHg) O2 Sat by Pulse Oximetry 09/20/18 13:53 Temperature Pulse Rate Respiratory 18 Rate Blood Pressure (mmHg) O2 Sat by Pulse Oximetry Oxygen Devices in Use Now: None Appearance: 48 yo M in nAD, AAOx3 Eyes: No Scleral Icterus, PERRLA Ears/Nose/Mouth/Throat: NL Teeth, Lips, Gums, Mucous Membranes Moist Neck: NL Appearance and Movements; NL JVP, Trachea Midline Respiratory: Symmetrical Chest Expansion and Respiratory Effort, Clear to Auscultation Cardiovascular: NL Sounds; No Murmurs; No JVD, RRR Abdominal: - - distended with palpable loops of bowel, minimal diffuse tenderness noted, BS+ Lymphatic: No Cervical Adenopathy Extremities: No Edema, No Clubbing, Cyanosis Skin: No Nodules or Sclerosis, - - post laparoscopic surgery abd wounds healing well, steri stripped Neurological: Alert and Oriented x 3, - - b/l LE's motor at 4+/5 Result Diagrams: 09/20/18 05:35 09/20/18 05:35 Additional Lab and Data: Laboratory Tests 09/16/18 09/16/18 09/16/18 05:20 05:20 05:20 Proteinase 3 (PR3) < 0.2 Myeloperoxidase Ab < 0.2 Scl-70 Scleroderma Ab <0.2 U1-nRNP Antibody <0.2 CMV IgG Ab Positive A CMV IgM Ab Negative 09/18/18 09/18/18 09/18/18 02:13 06:20 10:44 POC Glucose (mg/dL) 121 H 139 H 163 H 09/18/18 14:33 POC Glucose (mg/dL) 216 H Microbiology and Other Data: Microbiology 09/14/18 00:17 Urine Culture - Final Urine No Growth (<1,000 CFU/mL) Assess/Plan/Problems-Billing Neuropathic pain with mild proximal lower extremity weakness in a patient with poorly controlled diabetes who has lost +200 lbs following bariatric surgery in 2012. - Patient Problems (1) Abdominal pain Comment: due to ileus at admission. S/p laparascopic lap and lysis of adhesions on 09/14/18. As per D/w Dr. Mcclendon there was no apparrent obstruction noted intraop Post op ileus noted. cont Lactulose, on bariatric diet. Ambulation encouraged D/w DR. Hannon: pt has chronic constipation, 2 L of GoLytely recommended. Pt is tolerating full diet without any difficulties and passing flatus. Narcotics may also contribute significantly to the slow GI motility (2) Diabetes Comment: - Type 2 DM. -Continue ISS. (3) History of Young-en-Y gastric bypass Current Visit: Yes Comment: -multiple vitamin studies pending, may explain neuropathy -Post-op day 6 from abd surgery (4) Neuropathy, lumbosacral plexus Comment: -discussed extensively with Dr. Banks, plan to complete IVIg-today is the last dose. 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 Other differential diagnosis include atypical subacute-chronic inflammatory demyelinating polyneuropathy (CIDP). -started Cymbalta and Lyrica for neuropathic pain. 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 Recent MRI head,Thoracic,lumbar,cervical unremarkable Lyme,hepatitis c,b,hiv was tested recently neg (9) Inadequate pain control Comment: Off dilaudid RUNNING RIGGER 09/19/18, started on Oxycodone and cont of IV Dilauid prn, this AM still in pain and Oxyccontin added D/c Dr. Coles who will see pt in pain management consult (10) Hyponatremia Comment: worse off iVF, will restart gentle IVF. (11) DVT prophylaxis Comment: HSQ Status and Disposition: Hospitalist service has assumed care.
[2018-09-20 17:20] LABS: CSF West Nile Virus RNA (PCR) Negative (Negative); West Nile Virus Source CSF
--- NOTE | 2018-09-20 17:33 | CONSULT ---
Consult Consult: INPATIENT PAIN CONSULTATION Jordan Jackson is a 48 year old male with a medical history significant for having had a Young-en-Y gastric bypass for morbid obesity in 2012. He reportedly has lost 200 pounds since the surgery. According to the patient, he developed intense pain in his hips and thighs starting in late June. He initially took OTC pain meds like Tylenol. He saw his primary care office in [place] in late July and was given Tramadol, which was ineffective. He came to the ER in and was admitted. His HbA1C was quite high. There was some lower extremity weakness and he had an MRI of his CTLS spine and his brain as well. He was discharged with Percocet. The pain continued to intensify and he returned to the ER at the end of August. He had an exploratory lap but no source of his pain was seen. He was seen by neurology who worried about demyelinating disease such as Guillain [place]. He had an EMG study and an LP. He had repeat MRIs with jann. 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 LP was not c/w Guillain [place]. 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 He continues to report severe pain in his proximal legs and waist PAST MEDICAL HISTORY: Young-en-Y gastric bypass, Type II DM, depression Allergies Allergy/AdvReac Type Severity Reaction Status Date / Time No Known Allergies Allergy Verified 09/13/18 12:23 Current Medications Calcium Citrate (Citracal Tab*) 600 mg PO BID [facility] Last Admin: 09/20/18 08:36 Dose: 600 mg Dextrose (D50w Syringe 50 Ml*) 25 gm IV PUSH ONCE PRN PRN Reason: hypoglycemia Duloxetine HCl (Cymbalta Cap*) 30 mg PO DAILY [facility] Last Admin: 09/20/18 08:39 Dose: 30 mg Heparin Sodium (Porcine) (Heparin Vial(*)) 5,000 units SUBCUT Q8HR [facility] Last Admin: 09/20/18 13:49 Dose: 5,000 units Hydralazine HCl (Apresoline Iv*) 5 mg IV SLOW PU Q6H PRN PRN Reason: BLOOD PRESSURE Last Admin: 09/18/18 09:08 Dose: 5 mg Hydromorphone HCl (Dilaudid Inj1s*) 1 mg IV SLOW PU Q4H PRN PRN Reason: PAIN Last Admin: 09/20/18 15:56 Dose: 1 mg Immune Globulin 20 gm/ Immune (Globulin 10 gm/ IV Solution) 300 mls @ 0 mls/hr IV DAILY@1930 [facility]; Protocol Stop: 09/20/18 19:31 Last Admin: 09/19/18 19:36 Dose: 20.4 mls/hr Sodium Chloride (Ns 0.9% 1000 Ml) 1,000 mls @ 75 mls/hr IV PER RATE [facility] Last Admin: 09/20/18 08:35 Dose: 75 mls/hr Insulin Human Lispro (Humalog*) 0 units SUBCUT Q4H [facility]; Protocol Last Admin: 09/20/18 13:56 Dose: 1 unit Lactulose (Lactulose*) 30 ml PO QID [facility] Last Admin: 09/20/18 13:49 Dose: 30 ml Lisinopril (Prinivil Tab*) 20 mg PO DAILY [facility] Last Admin: 09/20/18 08:36 Dose: 20 mg Magnesium Hydroxide (Milk Of Magnesia Liq*) 30 ml PO Q6H PRN PRN Reason: CONSTIPATION Last Admin: 09/15/18 04:26 Dose: 30 ml Multivitamins (Theragran W/Minerals Liq*) 15 ml PO DAILY [facility] Last Admin: 09/20/18 08:35 Dose: 15 ml Cmcs:Non Formulary Med: Methylfolate 7. 5mg Tab 2 admin PO DAILY [facility] Last Admin: 09/20/18 08:35 Dose: 2 admin Ondansetron HCl (Zofran Inj*) 4 mg IV Q4H PRN PRN Reason: NAUSEA/VOMITING Last Admin: 09/20/18 11:14 Dose: 4 mg Oxycodone HCl (Roxycodone Tab*) 10 mg PO Q4H PRN PRN Reason: PAIN Last Admin: 09/20/18 15:56 Dose: 10 mg Polyethylene Glycol/Electrolytes (Miralax*) 34 gm PO DAILY [facility]; Protocol Last Admin: 09/20/18 08:35 Dose: 34 gm Pregabalin (Lyrica Cap(*)) 50 mg PO BID [facility] Last Admin: 09/20/18 08:37 Dose: 50 mg Senna (Senokot Tab*) 1 tab PO BEDTIME [facility] Last Admin: 09/19/18 20:35 Dose: 1 tab Vitamin B Complex/Vitamin E (B Complex-50*) 1 tab PO DAILY [facility] Last Admin: 09/20/18 08:37 Dose: 1 tab SOCIAL HISTORY: former smoker, non drinker. Lives with his parents in a 2 story house but they stay on one level. 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 Vital Signs Temp Pulse Resp BP Pulse Ox 98.1 F 68 20 158/98 93 09/20/18 14:49 09/20/18 14:49 09/20/18 15:56 09/20/18 14:49 09/20/18 14:49 EXAM: LUNGS: Clear bilaterally HEART: regular rhythm ABDOMEN: Soft EXTREMITIES: no edema. Decreased tone in LEs NEUROLOGIC: Seems to be hypersensitive to touch in feet. Leg weakness with strength 4/5; unable to elicit reflexes in legs ASSESSMENT: 1. 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 S/P Gastric bypass PLAN: He probably shouldn't have NSAIDs due to his Gastric Bypass. He says he has been advised by his GI doctor to minimize tylenol. I'm not sure how much of the MS Contin he is absorbing and will d/c it. Will try a Fentanyl transdermal patch. Will lower his IV Dilaudid, hopefully taper off. Can continue oxycodone for breakthrough for now.
[2018-09-20] MEDS ORDERED: fentaNYL PATCH 25 MCG/HR TRANSDERM SCH (19:00)
[2018-09-20] MEDS ORDERED: Gadoteridol* (CONTRAST) 279.3 MG/ML 10 ML IV ONE (20:30)
[2018-09-20] MEDS: Senna TAB PO SCH (21:39)
[2018-09-20] MEDS: Immune Globuln (PRIVIGEN) 30 GM in PREMIX IV SCH ×3 (22:03)
[2018-09-20] MEDS: fentaNYL Patch Check Q Shift 1 NOTE FOLLOW UP SCH (22:05)
[2018-09-21] MEDS: Heparin VIAL(*) 5000 UNITS/ML VIAL (FIVE THOUSAND) SUBCUT SCH ×4 (00:13→22:14)
[2018-09-21] MEDS: HYDROmorphone INJ1* 1 MG/ML SYRINGE IV SLOW PU PRN ×6 (00:59→22:09)
[2018-09-21] MEDS: Insulin LISPRO* 1 UNITS UNIT SUBCUT SCH ×6 (01:18→22:20)
[2018-09-21] MEDS: oxyCODONE TAB* 5 MG TAB PO PRN ×5 (01:26→23:58)
[2018-09-21 06:23] LABS: BUN/Creatinine Ratio 35.8 (8-20); Calcium 7.7 mg/dL (8.6-10.3); EGFR African American 201.6 (>60); EGFR Non-African American 166.6 (>60); Potassium 3.7 mmol/L (3.5-5.0)
[2018-09-21] MEDS: fentaNYL Patch Check Q Shift 1 NOTE FOLLOW UP SCH ×2 (07:54→19:36)
[2018-09-21 08:00] LABS: Magnesium 1.8 mg/dL (1.9-2.7)
[2018-09-21] MEDS: Pregabalin CAP(*) 50 MG PO SCH ×3 (09:22→22:13)
[2018-09-21] MEDS: DULoxetine DR CAP* 30 MG CAP.DR PO SCH (09:22)
[2018-09-21] MEDS: Calcium Citrate TAB* 200 MG PO SCH ×2 (09:22→22:12)
[2018-09-21] MEDS: Vitamin B Complex TAB PO SCH (09:22)
[2018-09-21] MEDS: Lisinopril TAB* 10 MG PO SCH (09:22)
[2018-09-21] MEDS: Polyethylene Glycol 3350* 17 GM PACKET PO SCH (09:24)
[2018-09-21] MEDS: METHYLFOLATE 7.5 MG PO SCH (09:24)
[2018-09-21] MEDS: Multivitamins ADULT w/MIN LIQ* 15 ML UDC PO SCH (09:24)
--- NOTE | 2018-09-21 12:22 | PN ---
Subjective Date of Service: 09/21/18 Length of Stay: 8 Days Neurology is following for pain and suspected amyotrophic dystrophy. Interval History: He reports no improvement with IVIG. Initially, after the first dose, he informed me that some of the pain was tolerable. However, he denied that now and stated that the IVIG did not help at all and he is still in excruciating pain. He is "screaming in pain" but is sitting in bed very comfortable. His mother is concerned about his condition and is asking for answers. His biggest problem now is pain and severe constipation. He is not significantly weak. He still has burning paresthesia and aching pain in the hip and quadriceps area. He continues to have a urinary catheter. Pain medications were adjusted yesterday. Lyrica has been appropriately increased. Review of Systems: enied CP, SOB, or palpitations. Family History: Unchanged from Admission Social History: Unchanged from Admission Past Medical History: Unchanged from Admission Objective Active Medications: Calcium Citrate (Citracal Tab*) 600 mg PO BID [facility] Last Admin: 09/21/18 09:22 Dose: 600 mg Dextrose (D50w Syringe 50 Ml*) 25 gm IV PUSH ONCE PRN PRN Reason: hypoglycemia Duloxetine HCl (Cymbalta Cap*) 30 mg PO DAILY [facility] Last Admin: 09/21/18 09:22 Dose: 30 mg Fentanyl (Duragesic Patch 25 Mcg/Hr*) 25 mcg TRANSDERM Q72H [facility] Last Admin: 09/20/18 19:40 Dose: 25 mcg Heparin Sodium (Porcine) (Heparin Vial(*)) 5,000 units SUBCUT Q8HR [facility] Last Admin: 09/21/18 06:26 Dose: 5,000 units Hydralazine HCl (Apresoline Iv*) 5 mg IV SLOW PU Q6H PRN PRN Reason: BLOOD PRESSURE Last Admin: 09/18/18 09:08 Dose: 5 mg Hydromorphone HCl (Dilaudid Inj1s*) 0.5 mg IV SLOW PU Q4H PRN PRN Reason: PAIN Last Admin: 09/21/18 09:29 Dose: 0.5 mg Sodium Chloride (Ns 0.9% 1000 Ml) 1,000 mls @ 75 mls/hr IV PER RATE [facility] Last Admin: 09/20/18 08:35 Dose: 75 mls/hr Insulin Human Lispro (Humalog*) 0 units SUBCUT Q4H [facility]; Protocol Last Admin: 09/21/18 10:39 Dose: 1 unit Lactulose (Lactulose*) 30 ml PO QID [facility] Last Admin: 09/21/18 09:23 Dose: 30 ml Lisinopril (Prinivil Tab*) 20 mg PO DAILY [facility] Last Admin: 09/21/18 09:22 Dose: 20 mg Magnesium Hydroxide (Milk Of Magnesia Liq*) 30 ml PO Q6H PRN PRN Reason: CONSTIPATION Last Admin: 09/15/18 04:26 Dose: 30 ml Multivitamins (Theragran W/Minerals Liq*) 15 ml PO DAILY [facility] Last Admin: 09/21/18 09:24 Dose: 15 ml Cmcs:Non Formulary Med: Methylfolate 7. 5mg Tab 2 admin PO DAILY [facility] Last Admin: 09/21/18 09:24 Dose: 2 admin Ondansetron HCl (Zofran Inj*) 4 mg IV Q4H PRN PRN Reason: NAUSEA/VOMITING Last Admin: 09/20/18 21:33 Dose: 4 mg Oxycodone HCl (Roxycodone Tab*) 10 mg PO Q4H PRN PRN Reason: PAIN Last Admin: 09/21/18 10:39 Dose: 10 mg Pharmacy Profile Note (Fentanyl Patch Check Q Shift) 1 note FOLLOW UP 0700, 1900 [facility] Last Admin: 09/21/18 07:54 Dose: 1 note Polyethylene Glycol/Electrolytes (Miralax*) 34 gm PO DAILY [facility]; Protocol Last Admin: 09/21/18 09:24 Dose: 34 gm Pregabalin (Lyrica Cap(*)) 50 mg PO TID [facility] Last Admin: 09/21/18 09:22 Dose: 50 mg Senna (Senokot Tab*) 1 tab PO BEDTIME [facility] Last Admin: 09/20/18 21:39 Dose: 1 tab Vitamin B Complex/Vitamin E (B Complex-50*) 1 tab PO DAILY [facility] Last Admin: 09/21/18 09:22 Dose: 1 tab Vital Signs 09/21/18 09/21/18 09/21/18 07:15 08:00 08:50 Temperature 98.8 F Pulse Rate 75 Respiratory 14 16 16 Rate Blood Pressure 160/88 (mmHg) O2 Sat by Pulse 91 91 Oximetry 02/04/0109/21/18 09/21/18 09:22 09:29 10:39 Temperature Pulse Rate Respiratory 16 18 16 Rate Blood Pressure (mmHg) O2 Sat by Pulse Oximetry 09/21/18 11:03 Temperature Pulse Rate Respiratory Rate Blood Pressure (mmHg) O2 Sat by Pulse 91 Oximetry Intake and Output Last 24 Hours 09/19/18 09/20/18 09/21/18 09/22/18 06:59 06:59 06:59 06:59 Intake Total 4739 1302 2317 Output Total 1900 3175 850 Balance 2839 -1873 1467 Intake: IV Fluids 4639 942 924 D5W 1/2 NS 20 meq KCL 3260 380 IG 74 NS (0.9%) 1305 562 924 IVPB 433 IG 288 NS (0.9%) 145 Oral 100 360 960 Output: Lindsay 1900 3175 850 Other: # Bowel Movements 0 0 Oxygen Devices in Use Now: None Neurology Exam: General: General: Frail, ill appearing man who looks older than his age. HEENT: Normocephalic/atraumatic, sclera anicteric, mucous membranes moist Neck: Supple Chest: Clear to auscultation bilaterally Cardiovascular: Regular rate and rhythm without murmurs, rubs, gallop Extremities: no hammer toes or high arches. He has marked atrophy in the proximal quads bilaterally. He has thin legs. Neurological Findings: Awake, alert, and oriented to person, place, and general circumstances. Speech: fluent without dysrhythmia, repetition intact Cranial Nerve: PERRL, EOM intact, VFF, no nystagmus, face symmetric bilaterally , facial sensation intact, hearing intact to finger rub bilaterally, palate elevates symmetrically, tongue midline, SCM and Trapezius s/s. Motor: reduce tone throughout. Atrophy of the quadriceps and gluteus muscles bilaterally. He has fairly normal strength in the upper extremity but mild weakness graded as 4+/5 symmetrically to hip flexors (limited due to pain), and ankle dorsiflexion 5-/5. Sensation: distal to proximal sensory gradient to light touch, temperature, and pin prick demarcated at the distal thighs bilaterally. He has no sensory level. Vibration 5 seconds on the right and 4 seconds on the left great toes. Intact proprioception sensation. He is tender all throughout his limb (inconsistently as he yells out when apply pressure to the thigh but then does not reproduce that if he is examined while distracted). Deep Tendon Reflex: Absent throughout. Finger to nose, rapid alternating movements intact without tremor, no dysdiadochokinesia Gait: wide based gait, required the walker. No other assistance required. Result Diagrams: 09/20/18 05:35 09/21/18 05:38 Additional Lab and Data: Laboratory Tests 09/16/18 09/16/18 09/16/18 05:20 05:20 05:20 Proteinase 3 (PR3) < 0.2 Myeloperoxidase Ab < 0.2 Scl-70 Scleroderma Ab <0.2 U1-nRNP Antibody <0.2 CMV IgG Ab Positive A CMV IgM Ab Negative 09/18/18 09/18/18 09/18/18 02:13 06:20 10:44 POC Glucose (mg/dL) 121 H 139 H 163 H 09/18/18 14:33 POC Glucose (mg/dL) 216 H Microbiology and Other Data: Microbiology 09/14/18 00:17 Urine Culture - Final Urine No Growth (<1,000 CFU/mL) Assessment/Plan 1. Neuropathic pain with mild proximal>distal lower extremity weakness in a patient with poorly controlled diabetic who has lost +200 lbs following bariatric surgery. 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 This condition can take weeks to months before it plateaus and the pain is less bothersome. Other differential diagnosis include atypical subacute-chronic inflammatory demyelinating polyneuropathy (CIDP) (less likely since he did not respond to IVIG and protein in CSF was normal). Both diagnosis can present with severe autonomic neuropathy which may be contributing to the patient's urinary retention and severe constipation. There was no enhancing nerve roots on MRI of L spine w/ contrast. 2. Severe constipation- due to opioid use in concomitant with possible autonomic neuropathy. Recommendations: - Defer pain management to the primary team and Pain management team (Dr. Coles). - He may benefit from acute rehabilitation although he does not have any significant disabling weakness. - Follow-up at the [facility]rom[facility]. I discussed the case with the neuromuscular providers yesterday and there is nothing else to add to the case. Dr. Watts did not think he needed to be transferred and further treated as an in-patient. - Continue neuropathic medications with Lyrica(increased yesterday) and Cymbalta. We can slowly go up on both medications in the near future. - Continue PT evaluation and treatment. - Dr. Harrison will be covering starting tonight. I will ask him to see the patient for a third neurological opinion. Time spent: 30 I will continue to follow.
[2018-09-21] MEDS ORDERED: Magnesium Sulfate 2 GM IV* 2 GM/50 ML BAG IVPB ONE (12:56)
--- NOTE | 2018-09-21 13:26 | PN ---
Progress Note - Progress Note Date of Service: 09/21/18 Note: INPATIENT PAIN-PROGRESS NOTE Jordan visited. Fentanyl some help, but still has significant pain. He had a small BM today. Otherwise about the same. Current Medications Calcium Citrate (Citracal Tab*) 600 mg PO BID [facility] Last Admin: 09/21/18 09:22 Dose: 600 mg Dextrose (D50w Syringe 50 Ml*) 25 gm IV PUSH ONCE PRN PRN Reason: hypoglycemia Duloxetine HCl (Cymbalta Cap*) 30 mg PO DAILY [facility] Last Admin: 09/21/18 09:22 Dose: 30 mg Fentanyl (Duragesic Patch 50 Mcg/Hr*) 50 mcg TRANSDERM Q72H [facility] Heparin Sodium (Porcine) (Heparin Vial(*)) 5,000 units SUBCUT Q8HR [facility] Last Admin: 09/21/18 06:26 Dose: 5,000 units Hydralazine HCl (Apresoline Iv*) 5 mg IV SLOW PU Q6H PRN PRN Reason: BLOOD PRESSURE Last Admin: 09/18/18 09:08 Dose: 5 mg Hydromorphone HCl (Dilaudid Inj1s*) 0.5 mg IV SLOW PU Q4H PRN PRN Reason: PAIN Last Admin: 09/21/18 09:29 Dose: 0.5 mg Magnesium Sulfate (Magnesium Sulfate 2 Gm Iv*) 2 gm in 50 mls @ 50 mls/hr IVPB ONCE ONE Stop: 09/21/18 13:55 Insulin Human Lispro (Humalog*) 0 units SUBCUT Q4H [facility]; Protocol Last Admin: 09/21/18 10:39 Dose: 1 unit Lactulose (Lactulose*) 30 ml PO QID [facility] Last Admin: 09/21/18 09:23 Dose: 30 ml Lisinopril (Prinivil Tab*) 20 mg PO DAILY [facility] Last Admin: 09/21/18 09:22 Dose: 20 mg Magnesium Hydroxide (Milk Of Magnesia Liq*) 30 ml PO Q6H PRN PRN Reason: CONSTIPATION Last Admin: 09/15/18 04:26 Dose: 30 ml Methylnaltrexone Mclean (Relistor) 450 mg PO DAILY [facility] Multivitamins (Theragran W/Minerals Liq*) 15 ml PO DAILY [facility] Last Admin: 09/21/18 09:24 Dose: 15 ml Cmcs:Non Formulary Med: Methylfolate 7. 5mg Tab 2 admin PO DAILY [facility] Last Admin: 09/21/18 09:24 Dose: 2 admin Ondansetron HCl (Zofran Inj*) 4 mg IV Q4H PRN PRN Reason: NAUSEA/VOMITING Last Admin: 09/20/18 21:33 Dose: 4 mg Oxycodone HCl (Roxycodone Tab*) 10 mg PO Q4H PRN PRN Reason: PAIN Last Admin: 09/21/18 10:39 Dose: 10 mg Pharmacy Profile Note (Fentanyl Patch Check Q Shift) 1 note FOLLOW UP 0700, 1900 [facility] Last Admin: 09/21/18 07:54 Dose: 1 note Polyethylene Glycol/Electrolytes (Miralax*) 34 gm PO DAILY [facility]; Protocol Last Admin: 09/21/18 09:24 Dose: 34 gm Pregabalin (Lyrica Cap(*)) 50 mg PO TID [facility] Last Admin: 09/21/18 09:22 Dose: 50 mg Senna (Senokot Tab*) 1 tab PO BEDTIME [facility] Last Admin: 09/20/18 21:39 Dose: 1 tab Vitamin B Complex/Vitamin E (B Complex-50*) 1 tab PO DAILY [facility] Last Admin: 09/21/18 09:22 Dose: 1 tab Vital Signs Temp Pulse Resp BP Pulse Ox 98.8 F 75 16 160/88 91 09/21/18 07:15 09/21/18 07:15 09/21/18 10:39 09/21/18 07:15 09/21/18 11:03 EXAM LUNGS: Clear HEART: reg rhythm ABDOMEN: Soft EXTREMITIES: LEs remain hypersensitive NEUROLOGIC: Alert and oreiented. Some LE weakness ASSESSMENT: 1. Diabetic amyotrophy/lumbosacral radiculoplexus neuropathy PLAN: Will increase Fentanyl to 50 mcg/hr. I will follow
[2018-09-21] MEDS ORDERED: fentaNYL PATCH 50 MCG/HR TRANSDERM SCH (13:30)
--- NOTE | 2018-09-21 13:45 | PN ---
Subjective Date of Service: 09/21/18 Interval History: Pt had a BM today, "but small". Abd is "sore", still c/o inadequate pain control secondary to neuropathic pain in b/l LE's Family History: Unchanged from Admission Social History: Unchanged from Admission Past Medical History: Unchanged from Admission Objective Active Medications: Calcium Citrate (Citracal Tab*) 600 mg PO BID [facility] Last Admin: 09/21/18 09:22 Dose: 600 mg Dextrose (D50w Syringe 50 Ml*) 25 gm IV PUSH ONCE PRN PRN Reason: hypoglycemia Duloxetine HCl (Cymbalta Cap*) 30 mg PO DAILY [facility] Last Admin: 09/21/18 09:22 Dose: 30 mg Fentanyl (Duragesic Patch 50 Mcg/Hr*) 50 mcg TRANSDERM Q72H [facility] Heparin Sodium (Porcine) (Heparin Vial(*)) 5,000 units SUBCUT Q8HR [facility] Last Admin: 09/21/18 06:26 Dose: 5,000 units Hydralazine HCl (Apresoline Iv*) 5 mg IV SLOW PU Q6H PRN PRN Reason: BLOOD PRESSURE Last Admin: 09/18/18 09:08 Dose: 5 mg Hydromorphone HCl (Dilaudid Inj1s*) 0.5 mg IV SLOW PU Q4H PRN PRN Reason: PAIN Last Admin: 09/21/18 09:29 Dose: 0.5 mg Magnesium Sulfate (Magnesium Sulfate 2 Gm Iv*) 2 gm in 50 mls @ 50 mls/hr IVPB ONCE ONE Stop: 09/21/18 13:55 Insulin Human Lispro (Humalog*) 0 units SUBCUT Q4H [facility]; Protocol Last Admin: 09/21/18 10:39 Dose: 1 unit Lactulose (Lactulose*) 30 ml PO QID [facility] Last Admin: 09/21/18 09:23 Dose: 30 ml Lisinopril (Prinivil Tab*) 20 mg PO DAILY [facility] Last Admin: 09/21/18 09:22 Dose: 20 mg Magnesium Hydroxide (Milk Of Magnesia Liq*) 30 ml PO Q6H PRN PRN Reason: CONSTIPATION Last Admin: 09/15/18 04:26 Dose: 30 ml Methylnaltrexone [place] (Relistor Sq (Nf)) 12 mg SUBCUT Q48H [facility]; Protocol Multivitamins (Theragran W/Minerals Liq*) 15 ml PO DAILY [facility] Last Admin: 09/21/18 09:24 Dose: 15 ml Cmcs:Non Formulary Med: Methylfolate 7. 5mg Tab 2 admin PO DAILY [facility] Last Admin: 09/21/18 09:24 Dose: 2 admin Ondansetron HCl (Zofran Inj*) 4 mg IV Q4H PRN PRN Reason: NAUSEA/VOMITING Last Admin: 09/20/18 21:33 Dose: 4 mg Oxycodone HCl (Roxycodone Tab*) 10 mg PO Q4H PRN PRN Reason: PAIN Last Admin: 09/21/18 10:39 Dose: 10 mg Pharmacy Profile Note (Fentanyl Patch Check Q Shift) 1 note FOLLOW UP 0700, 1900 [facility] Last Admin: 09/21/18 07:54 Dose: 1 note Polyethylene Glycol/Electrolytes (Miralax*) 34 gm PO DAILY [facility]; Protocol Last Admin: 09/21/18 09:24 Dose: 34 gm Pregabalin (Lyrica Cap(*)) 50 mg PO TID [facility] Last Admin: 09/21/18 09:22 Dose: 50 mg Senna (Senokot Tab*) 1 tab PO BEDTIME [facility] Last Admin: 09/20/18 21:39 Dose: 1 tab Vitamin B Complex/Vitamin E (B Complex-50*) 1 tab PO DAILY [facility] Last Admin: 09/21/18 09:22 Dose: 1 tab Vital Signs - 8 hr 09/21/18 09/21/18 09/21/18 06:24 06:58 07:15 Temperature 98.8 F Pulse Rate 75 Respiratory 16 16 14 Rate Blood Pressure 160/88 (mmHg) O2 Sat by Pulse 91 Oximetry 09/21/18 09/21/18 09/21/18 08:00 08:50 09:22 Temperature Pulse Rate Respiratory 16 16 16 Rate Blood Pressure (mmHg) O2 Sat by Pulse 91 Oximetry 09/21/18 09/21/18 09/21/18 09:29 10:39 11:03 Temperature Pulse Rate Respiratory 18 16 Rate Blood Pressure (mmHg) O2 Sat by Pulse 91 Oximetry Oxygen Devices in Use Now: None Appearance: 48 yo m in nAD, aAOx3 Eyes: No Scleral Icterus, PERRLA Ears/Nose/Mouth/Throat: NL Teeth, Lips, Gums, Mucous Membranes Moist Neck: NL Appearance and Movements; NL JVP, Trachea Midline Respiratory: Symmetrical Chest Expansion and Respiratory Effort, Clear to Auscultation Cardiovascular: NL Sounds; No Murmurs; No JVD, RRR Abdominal: - - mild diffuse tenderness, no rebound, no guarding, BS+ Lymphatic: No Cervical Adenopathy Skin: No Rash or Ulcers, No Nodules or Sclerosis Neurological: Alert and Oriented x 3, - - minimally decreased strenght in b/l LE 's. Tender to touch in b/l LE's Result Diagrams: 09/20/18 05:35 09/21/18 05:38 Additional Lab and Data: Laboratory Tests 09/16/18 09/16/18 09/16/18 05:20 05:20 05:20 Proteinase 3 (PR3) < 0.2 Myeloperoxidase Ab < 0.2 Scl-70 Scleroderma Ab <0.2 U1-nRNP Antibody <0.2 CMV IgG Ab Positive A CMV IgM Ab Negative 09/18/18 09/18/18 09/18/18 02:13 06:20 10:44 POC Glucose (mg/dL) 121 H 139 H 163 H 09/18/18 14:33 POC Glucose (mg/dL) 216 H Microbiology and Other Data: Microbiology 09/14/18 00:17 Urine Culture - Final Urine No Growth (<1,000 CFU/mL) Assess/Plan/Problems-Billing 48 yo M s/p gastric bypass presented with abd pain and b/l LE's pain and weakness - Patient Problems (1) Abdominal pain Comment: due to ileus at admission. S/p laparascopic surgery and lysis of adhesions on 09/14/18. As per D/w Dr. Mcclendon there was no apparrent obstruction noted intraop Post op ileus noted. cont Lactulose, on bariatric diet. Ambulation encouraged D/w DR. Hannon: pt has chronic constipation, 2 L of GoLytely recommended on 09/20 Pt had a small BM on 09/21/18. still sipping on Golytely. 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 -Continue ISS. (3) History of Young-en-Y gastric bypass Current Visit: Yes Comment: -multiple vitamin studies pending, may explain neuropathy -Post-op day 7 from abd surgery (4) Neuropathy, lumbosacral plexus Comment: -discussed extensively with Dr. 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 Other differential diagnosis include atypical subacute-chronic inflammatory demyelinating polyneuropathy (CIDP). -started Cymbalta and Lyrica for neuropathic pain. Pain si still uncontroled and Dr. Coles placed pt on Fentanyl patvh with dose increased 09/21/18. Cont Dilaudid and oxycodone prn -MRI brain reviewed with patient (neg) -Laboratory findings so far: AST/ALT/ and alkaline phosphatase: elevated Vitamin A: 28.1 Vitamin B1: 206 Vitamin D: 7.6 Vitamin E: 8.9 Vitamin K: 0.47 Homocysteine: 5 Zinc: 0.44 (L) Selenium: 93 Mercury <1 Lead <1 Arsenic 8 ZOLTAN: 0.6 CMV IgG Ab: positive IgM: Negative ESR: 39 CRP on 09/13 was normal at 5.83 but on 09/15/2018 up to 46. 23 Aldolase 8.1 (H) CSF fluids: Glucose: 100 Protein: 38 HSV: negative Herpes II: Negative (5) Zinc deficiency Comment: due to possibility of blocking other vitamin absorbtion stopped by neurology (6) Elevated LFTs Comment: - Possibly secondary to hepatosteatosis - will need liver biopsy as outpatient (7) Vitamin D deficiency Comment: got a dose of weekly wit D2 50 000 U on 09/15/18 (8) MTHFR mutation Comment: pt is a heterozygote for the mutation and his Vit B12 levels are WNL and well as low normal homocysteine level. Recent MRI head,Thoracic,lumbar,cervical unremarkable Lyme,hepatitis c,b,hiv was tested recently neg (9) Inadequate pain control Comment: Off dilaudid [employer] 09/19/18, started on Oxycodone and cont of IV Dilauid prn, Oxycontin added 09/19/18, then switched to Fentanyl by Dr. Coles who increased Fentanyl from 25 to 50 mcq on 09/21/18 On 09/21/18 pt was placed on methylnaltrexone sc for opioid induced constipation (10) Hyponatremia Comment: will d/c IVF and monitor (11) Acute urinary retention Comment: Lindsay placed in ED. Will keep it in untill pt has a significant BM since constipation can contribute to U retentiona (12) DVT prophylaxis Comment: HSQ Status and Disposition: Hospitalist service has assumed care.
[2018-09-21] MEDS ORDERED: Methylnaltrexone 150 MG TAB PO SCH (14:00)
[2018-09-21] MEDS: CMC:Methylnaltrexone SQ (NF) 12 MG/0.6 ML VIAL SUBCUT SCH (15:45)
[2018-09-21] MEDS: Senna TAB PO SCH (22:12)
[2018-09-22] MEDS: Insulin LISPRO* 1 UNITS UNIT SUBCUT SCH ×6 (02:37→22:56)
[2018-09-22] MEDS: Ondansetron INJ* 2 MG/ML VIAL IV PRN ×4 (02:47→22:49)
[2018-09-22] MEDS: oxyCODONE TAB* 5 MG TAB PO PRN ×4 (05:38→20:06)
[2018-09-22] MEDS: Heparin VIAL(*) 5000 UNITS/ML VIAL (FIVE THOUSAND) SUBCUT SCH ×3 (05:39→22:21)
[2018-09-22] MEDS: fentaNYL Patch Check Q Shift 1 NOTE FOLLOW UP SCH ×2 (07:19→19:09)
[2018-09-22] MEDS: HYDROmorphone INJ1* 1 MG/ML SYRINGE IV SLOW PU PRN ×3 (08:18→22:49)
[2018-09-22] MEDS: Polyethylene Glycol 3350* 17 GM PACKET PO SCH (08:24)
[2018-09-22] MEDS: Lisinopril TAB* 10 MG PO SCH (08:25)
[2018-09-22] MEDS: Calcium Citrate TAB* 200 MG PO SCH ×2 (08:25→22:20)
[2018-09-22] MEDS: DULoxetine DR CAP* 30 MG CAP.DR PO SCH (08:26)
[2018-09-22] MEDS: Vitamin B Complex TAB PO SCH (08:26)
[2018-09-22] MEDS: Pregabalin CAP(*) 50 MG PO SCH ×3 (08:26→22:19)
[2018-09-22] MEDS: Multivitamins ADULT w/MIN LIQ* 15 ML UDC PO SCH (08:26)
[2018-09-22] MEDS: METHYLFOLATE 7.5 MG PO SCH (08:27)
--- NOTE | 2018-09-22 12:28 | PN ---
Subjective Date of Service: 09/22/18 Interval History: Pt still c/o pain that is uncontrolled. No visible discomfort noted. Pt ambulated during the visit to bathroom and back independently Spoke with pt's mother who is not ready for pt to go home today. They will likely appeal today's discharge Pt was aware of discharge plans for today since yesterday PM Since his obstipation resolved yesterday pt has had multiple BM's , loose Family History: Unchanged from Admission Social History: Unchanged from Admission Past Medical History: Unchanged from Admission Objective Active Medications: Calcium Citrate (Citracal Tab*) 600 mg PO BID [facility] Last Admin: 09/22/18 08:25 Dose: 600 mg Dextrose (D50w Syringe 50 Ml*) 25 gm IV PUSH ONCE PRN PRN Reason: hypoglycemia Duloxetine HCl (Cymbalta Cap*) 30 mg PO DAILY [facility] Last Admin: 09/22/18 08:26 Dose: 30 mg Fentanyl (Duragesic Patch 50 Mcg/Hr*) 50 mcg TRANSDERM Q72H [facility] Last Admin: 09/21/18 13:50 Dose: 50 mcg Heparin Sodium (Porcine) (Heparin Vial(*)) 5,000 units SUBCUT Q8HR [facility] Last Admin: 09/22/18 05:39 Dose: 5,000 units Hydralazine HCl (Apresoline Iv*) 5 mg IV SLOW PU Q6H PRN PRN Reason: BLOOD PRESSURE Last Admin: 09/18/18 09:08 Dose: 5 mg Hydromorphone HCl (Dilaudid Inj1s*) 0.5 mg IV SLOW PU Q4H PRN PRN Reason: PAIN Last Admin: 09/22/18 08:18 Dose: 0.5 mg Insulin Human Lispro (Humalog*) 0 units SUBCUT Q4H [facility]; Protocol Last Admin: 09/22/18 10:46 Dose: 4 unit Lactulose (Lactulose*) 30 ml PO QID [facility] Last Admin: 09/22/18 08:25 Dose: 30 ml Lisinopril (Prinivil Tab*) 20 mg PO DAILY [facility] Last Admin: 09/22/18 08:25 Dose: 20 mg Magnesium Hydroxide (Milk Of Magnesia Liq*) 30 ml PO Q6H PRN PRN Reason: CONSTIPATION Last Admin: 09/15/18 04:26 Dose: 30 ml Methylnaltrexone [place] (Relistor Sq (Nf)) 12 mg SUBCUT Q48H [facility]; Protocol Last Admin: 09/21/18 15:45 Dose: 12 mg Multivitamins (Theragran W/Minerals Liq*) 15 ml PO DAILY [facility] Last Admin: 09/22/18 08:26 Dose: 15 ml Cmcs:Non Formulary Med: Methylfolate 7. 5mg Tab 2 admin PO DAILY [facility] Last Admin: 09/22/18 08:27 Dose: 2 admin Ondansetron HCl (Zofran Inj*) 4 mg IV Q4H PRN PRN Reason: NAUSEA/VOMITING Last Admin: 09/22/18 10:46 Dose: 4 mg Oxycodone HCl (Roxycodone Tab*) 10 mg PO Q4H PRN PRN Reason: PAIN Last Admin: 09/22/18 10:44 Dose: 10 mg Pharmacy Profile Note (Fentanyl Patch Check Q Shift) 1 note FOLLOW UP 0700, 1900 [facility] Last Admin: 09/22/18 07:19 Dose: 1 note Polyethylene Glycol/Electrolytes (Miralax*) 34 gm PO DAILY [facility]; Protocol Last Admin: 09/22/18 08:24 Dose: 34 gm Pregabalin (Lyrica Cap(*)) 50 mg PO TID [facility] Last Admin: 09/22/18 08:26 Dose: 50 mg Senna (Senokot Tab*) 1 tab PO BEDTIME [facility] Last Admin: 09/21/18 22:12 Dose: 1 tab Vitamin B Complex/Vitamin E (B Complex-50*) 1 tab PO DAILY [facility] Last Admin: 09/22/18 08:26 Dose: 1 tab Vital Signs - 8 hr 09/22/18 09/22/18 09/22/18 05:38 07:47 08:18 Temperature 98.6 F Pulse Rate 83 Respiratory 16 20 12 Rate Blood Pressure 171/87 (mmHg) O2 Sat by Pulse 93 Oximetry 09/22/18 09/22/18 08:26 10:44 Temperature Pulse Rate Respiratory 12 12 Rate Blood Pressure (mmHg) O2 Sat by Pulse Oximetry Oxygen Devices in Use Now: None Appearance: 48 yo M inm nAD, AAOx3 Eyes: No Scleral Icterus, PERRLA Ears/Nose/Mouth/Throat: NL Teeth, Lips, Gums, Mucous Membranes Moist Neck: NL Appearance and Movements; NL JVP, Trachea Midline Respiratory: Symmetrical Chest Expansion and Respiratory Effort, Clear to Auscultation Cardiovascular: NL Sounds; No Murmurs; No JVD, RRR Abdominal: NL Sounds; No Tenderness; No Distention Lymphatic: No Cervical Adenopathy Extremities: No Edema, No Clubbing, Cyanosis Skin: No Rash or Ulcers, No Nodules or Sclerosis Neurological: Alert and Oriented x 3, - - diffuse tenderenss on palpation b/l LE 's Result Diagrams: 09/20/18 05:35 09/21/18 05:38 Additional Lab and Data: Laboratory Tests 09/16/18 09/16/18 09/16/18 05:20 05:20 05:20 Proteinase 3 (PR3) < 0.2 Myeloperoxidase Ab < 0.2 Scl-70 Scleroderma Ab <0.2 U1-nRNP Antibody <0.2 CMV IgG Ab Positive A CMV IgM Ab Negative 09/18/18 09/18/18 09/18/18 02:13 06:20 10:44 POC Glucose (mg/dL) 121 H 139 H 163 H 09/18/18 14:33 POC Glucose (mg/dL) 216 H Microbiology and Other Data: Microbiology 09/14/18 00:17 Urine Culture - Final Urine No Growth (<1,000 CFU/mL) Assess/Plan/Problems-Billing 48 yo M s/p gastric bypass presented with abd pain and b/l LE's pain and weakness - Patient Problems (1) Abdominal pain Comment: due to ileus at admission. S/p laparascopic surgery and lysis of adhesions on 09/14/18. As per D/w Dr. Mcclendon there was no apparrent obstruction noted intraop Post op ileus noted. Obstipation resolved 09/21/18 D/w DR. Hannon: pt has chronic constipation Strarted on methynaltrexone sc for opioid induced constipation on 09/21/18 (2) Diabetes Comment: - Type 2 DM. -Continue ISS. Restarted metformin on 09/22/18 (3) History of Young-en-Y gastric bypass Current Visit: Yes Comment: -Post-op day 8 from abd surgery (4) Neuropathy, lumbosacral plexus Comment: -discussed extensively with Dr. 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 Other differential diagnosis include atypical subacute-chronic inflammatory demyelinating polyneuropathy (CIDP). -started Cymbalta and Lyrica for neuropathic pain. Pain si still uncontroled and Dr. Coles placed pt on Fentanyl patch with dose increased 09/21/18. Cont Dilaudid and oxycodone prn -MRI brain reviewed with patient (neg) -Laboratory findings so far: AST/ALT/ and alkaline phosphatase: elevated Vitamin A: 28.1 Vitamin B1: 206 Vitamin D: 7.6 Vitamin E: 8.9 Vitamin K: 0.47 Homocysteine: 5 Zinc: 0.44 (L) Selenium: 93 Mercury <1 Lead <1 Arsenic 8 ZOLTAN: 0.6 CMV IgG Ab: positive IgM: Negative ESR: 39 CRP on 09/13 was normal at 5.83 but on 09/15/2018 up to 46. 23 Aldolase 8.1 (H) CSF fluids: Glucose: 100 Protein: 38 HSV: negative Herpes II: Negative (5) Zinc deficiency Comment: due to possibility of blocking other vitamin absorbtion stopped by neurology (6) Elevated LFTs Comment: - Possibly secondary to hepatosteatosis - will need liver biopsy as outpatient (7) Vitamin D deficiency Comment: got a dose of weekly wit D2 50 000 U on 09/15/18, will repeat dose today (8) MTHFR mutation Comment: pt is a heterozygote for the mutation and his Vit B12 levels are WNL and well as low normal homocysteine level. Recent MRI head,Thoracic,lumbar,cervical unremarkable Lyme,hepatitis c,b,hiv was tested recently neg (9) Inadequate pain control Comment: Off dilaudid [employer] 09/19/18, started on Oxycodone and cont of IV Dilauid prn, Oxycontin added 09/19/18, then switched to Fentanyl by Dr. Coles who increased Fentanyl from 25 to 50 mcq on 09/21/18 On 09/21/18 pt was placed on methylnaltrexone sc for opioid induced constipation (10) Hyponatremia Comment: stable, mild (11) Acute urinary retention Comment: Lindsay placed in ED. disontinued today. (12) DVT prophylaxis Comment: HSQ Status and Disposition: Pt is medically ready for discharge
[2018-09-22] MEDS ORDERED: Ergocalciferol CAP* 50000 UNIT PO SCH (13:00)
[2018-09-22] MEDS: metFORMIN* 1,000 MG TAB PO SCH ×2 (13:41→22:20)
[2018-09-22 16:52] LABS: Albumin 1.7 g/dL (3.4-4.7); Gamma Globulin 2.4 g/dL (0.6-1.6); Total Protein(PEP) 5.8 g/dL (6.3 - 7.9)
[2018-09-22] MEDS: Senna TAB PO SCH (22:19)
[2018-09-23] MEDS: oxyCODONE TAB* 5 MG TAB PO PRN ×3 (00:43→14:13)
[2018-09-23] MEDS ORDERED: NS 0.9% 250 ML* 250 ML IV ONE (00:48)
[2018-09-23] MEDS: Insulin LISPRO* 1 UNITS UNIT SUBCUT SCH ×4 (03:31→17:16)
[2018-09-23] MEDS ORDERED: HYDROmorphone INJ* 1 MG/ML CARPUJECT SYRINGE IV SLOW PU ONE (06:23)
--- NOTE | 2018-09-23 06:23 | PN ---
Hospitalist Progress Note Date of Service: 09/23/18 Nurse reported that no urine output since the melchor removal yesterday. He had several bladder scan Evening shift had 252 ml 11PM: 200 ml 5:15AM: 168 ml Patient also received 250cc bolus. Right now on my exam mild suprapubic tenderness, there is no guarding or rigidity. Nurse attempted to place a melchor in, but was unable to do so. Will discuss with my daytime colleague on this- and about possibly getting a urology consult
[2018-09-23] MEDS ORDERED: NS 0.9% 500 ML* 500 ML IV ONE (06:25)
[2018-09-23] MEDS ORDERED: HYDROmorphone INJ1* 1 MG/ML SYRINGE ONE (06:25)
[2018-09-23] MEDS: Heparin VIAL(*) 5000 UNITS/ML VIAL (FIVE THOUSAND) SUBCUT SCH ×2 (06:30→12:16)
[2018-09-23] MEDS ORDERED: HYDROmorphone INJ1* 1 MG/ML SYRINGE IV SLOW PU ONE ×2 (06:40→07:53)
[2018-09-23] MEDS: fentaNYL Patch Check Q Shift 1 NOTE FOLLOW UP SCH (06:43)
[2018-09-23] MEDS: Multivitamins ADULT w/MIN LIQ* 15 ML UDC PO SCH (07:33)
[2018-09-23] MEDS: Pregabalin CAP(*) 50 MG PO SCH ×2 (07:34→12:14)
[2018-09-23] MEDS: Lisinopril TAB* 10 MG PO SCH (07:34)
[2018-09-23] MEDS: Calcium Citrate TAB* 200 MG PO SCH (07:34)
[2018-09-23] MEDS: Polyethylene Glycol 3350* 17 GM PACKET PO SCH (07:34)
[2018-09-23] MEDS: metFORMIN* 1,000 MG TAB PO SCH (07:34)
[2018-09-23] MEDS: DULoxetine DR CAP* 30 MG CAP.DR PO SCH (07:34)
[2018-09-23] MEDS: HYDROmorphone INJ1* 1 MG/ML SYRINGE IV SLOW PU PRN (08:48)
[2018-09-23] MEDS: Vitamin B Complex TAB PO SCH (08:50)
[2018-09-23] MEDS ORDERED: Methylnaltrexone SQ (NF) 12 MG/0.6 ML VIAL SUBCUT SCH (09:00)
[2018-09-23] MEDS ORDERED: fentaNYL PATCH 75 MCG/HR* 75 MCG TRANSDERM SCH (10:00)
[2018-09-23] MEDS: METHYLFOLATE 7.5 MG PO SCH (12:22)
[2018-09-23 12:47] VITALS: BP 128/82
[2018-09-23] MEDS: CMC:Methylnaltrexone SQ (NF) 12 MG/0.6 ML VIAL SUBCUT SCH (14:14)
--- NOTE | 2018-09-23 18:26 | DS ---
CC: Dr. Jamison; Dr. Coles; Dr. Garcia; Dr. Adams from Endocrinology; Dr. Webb; Dr. Hannon; Dr. Mcclendon; [facility], phone number is [phone] * DISCHARGE SUMMARY: DATE OF ADMISSION: 09/13/18 DATE OF DISCHARGE: 09/23/18 PRIMARY CARE PROVIDER: Dr. Jamison. DISCHARGE DIAGNOSIS: 1. Acute abdominal pain in a patient with history of gastric bypass with questionable obstruction of biliopancreatic limb of the patient's Yuong-en-Y bypass, status post laparoscopic abdominal surgery performed by Dr. Mcclendon on 09/14/18 with lysis of adhesions. During the surgery, the obstruction above mentioned was ruled out. 2. Obstipation. The patient had not had a bowel movement from 08/30/18 to 04/01. After GoLYTELY and methylnaltrexone injections to reverse the patient's opioid action on his gut, he had multiple bowel movements. 3. Acute urinary retention with a trial of Lindsay discontinuation the day prior to discharge, the patient failed. The patient is going to go home with a Lindsay catheter in place to follow up with Dr. Garcia. 4. 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 The patient underwent 5 days treatment of IVIG without any marked change in his pain. 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 5. Vitamin D deficiency. 6. Zinc deficiency. 7. Elevated liver function tests likely secondary to hepatosteatosis. The patient is recommended to follow up with Gastroenterology, Dr. Hannon for possibility of liver biopsy. 8. History of MTHFR mutation, which patient is a heterozygote without elevated homocystine level. MEDICATIONS AT DISCHARGE: Include: 1. Polyethylene glycol 17 g daily. 2. Oxycodone 10 mg daily every 4 hours p.r.n. The patient received a total of 10 tablets. 3. Lisinopril 20 mg daily. 4. Fentanyl patch 75 mcg daily. The patient is leaving with the patch that was applied at the time of discharge. 5. Vitamin D3 50,000 units weekly. 6. Colace 100 mg b.i.d. 7. Chantix 1 mg b.i.d. 8. Lyrica 50 mg three times a day. 9. Glucophage 1000 mg b.i.d. 10. Insulin Humalog sliding scale. 11. Insulin glargine 18 units subcutaneously daily to start on 09/24/18. CONSULTATIONS DURING THE HOSPITAL STAY: Included Dr. Mcclendon, Dr. Webb, Dr. Bnaks, Dr. Garcia, Dr. Coles. PROCEDURES PERFORMED: Included: Laparoscopic abdominal surgery performed by Dr. Mcclendon on 09/14/18 with lysis of adhesions and closure of internal hernia. Radiology Report include: On 09/13/18, CT of the abdomen and pelvis again noted there is mucosal thickening of the distal esophagus. There is mild peripheric stranding bilaterally, which may indicate presence of an upper urinary tract infection, mild periportal edema. Large amount of stool throughout the colon. "No obstruction." Cervical spine MRI obtained on 09/15/18, impression, "no acute findings of cervical spine". Thoracic spine MRI with and without contrast obtained on 09/15/18 impression, "no acute findings of thoracic spine. Small bilateral pleural effusions". Lumbar spine MRI obtained on 09/25/18, that was also obtained with and without contrast showed mild degenerative changes visualized at L4-L5, L5-S1. "There was no significant narrowing of the thecal sac or neuroforaminal at any lumbar level". Brain MRI obtained on 09/17/18 impression "no intracranial lesion is evident". Abdominal MRI obtained on 09/17/18 impression, "prominent intrahepatic duct". However, no focal masses or are noted. There is dilated excluded portion of the stomach. No mucosal edema of the gastric antrum and pylorus ". LABORATORY DATA: Included: On 09/21/18, sodium of 131, potassium 3.7, chloride 98, carbon dioxide 29, BUN 19, creatinine 0.53. Magnesium was 1.8 on that day. 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 The patient's homocysteine level was 5, which was within normal limits. Vitamin K level was 0.47 within normal limits. Vitamin E level 8.9, within normal limits. Total vitamin D was low at 7.6, and the patient is already on supplements for that. Vitamin B1 level 206, which is high. Vitamin A level 28 , which was low and lower limit of normal is 32.5. Aldolase level was 8.1, which was above the normal 7.7. Lipase was 56 at admission. C-reactive protein last obtained on 09/15/18 at 46. Total CPK was noted to be 41 on 09/16/18. Ammonia level 51 on 09/15/18. Alkaline phosphatase last obtained on 09/14/18 is 375. ALT noted to be 113 on 09/14/18. AST was 127 on 09/14/18. Bilirubin 0.4. Cytomegalovirus, CMV IgG was positive, but IgM was negative. EBV on patient was negative. IgG level was noted to be lower at 717 with a level of 767 or above that is within the normal limits. CCP IgG was below 15, which is negative. ZOLTAN was 0.6 negative. PR3 level of 0.2 negative. Myeloperoxidase antibody is below 0.2. SSA/RO antibody is below 0.2. Scleroderma antibody of Scl-70 was negative and CREATIVE ENGAGEMENT DIRECTOR antibody was also negative. Zinc level was lower at 0.44. Selenium was 93. Urine mercury was below 2 and serum mercury was below 1. Urine lead was below 1. Venous blood was below 1. Copper level was 0.88, which was within normal limits. Urine cadmium is below 0.5. Urine arsenic concentration was 4, which was within normal limits. Cerebrospinal fluid analysis on 09/16/18 showed clear fluid with 0 WBCs, 0 RBCs , total cell count of 9, 56% of lymphocytes and 44 of monocytes. Glucose level in the CSF was 100 and total protein of 38. RNA was negative. Herpes PCR was negative. HSV PCR was negative. 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 That was noted by Dr. Webb on 09/16/18. HOSPITALIZATION COURSE: Jordan Jackson is a 48-year-old male with a history of diabetes type 2 and status post Young-en-Y bypass in 2012, after which she lost approximately 200 pounds , as well as hypertension, and hyperlipidemia, who presented to the hospital complaining of abdominal pain. The patient also noted that he has had bilateral lower extremity weakness and severe pain about the lower extremities for the past several days. During his hospital stay, he had an extensive workup and including initially laparoscopic abdominal surgery to rule out obstruction due to abdominal pain. Dr. Mcclendon performed lysis of adhesions in 2019, but no obstruction was noted. The patient also had an internal hernia repair at this point. Postoperatively, the patient did well from the abdominal standpoint and his abdominal pain was somewhat resolved and better by the time of discharge. He did develop obstipation that was treated with methylnaltrexone as well as GoLYTELY. Colonoscopy prep with good results and resolution of the obstipation by the time of discharge. The patient also had acute urinary retention at admission . He had seen Dr. Garcia recently for problems with "prostate". His Lindsay was continued throughout his hospital stay and it was attempted to be discontinued the day prior to discharge. The patient felt he had approximately 650 mL of urine residual and the Lindsay was reinserted by the time of discharge. The patient was noted to have severe pain about lower extremities and weakness is 4+/5 in bilateral lower extremities. Dr. Webb saw the patient in consultation. Lumbar puncture was performed and multiple studies were performed as detailed above with the values and results. Shortly, the patient initially was thought to have demyelinating process and was treated with IVIG for 5 days with, as per patient's overt impression after the treatment was that there was no improvement. Later on, the patient was followed by Dr. 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 The patient was continued on his Lyrica at this point. The patient continued to have problems with intractable pain in his abdomen, as well as bilateral lower extremities. On day 5 of his postop abdominal surgery stay, he was still on Dilaudid LENS FINISHER. That was discontinued and transitioned to Dilaudid IV on an as needed basis. Later on, Dr. Coles from Pain Management helped our service in managing the patient's pain. The patient was placed initially on fentanyl patch at 25 mcg every 3 days, with a thought that the patient may not be absorbing well MS Contin. The fentanyl needed to be increased throughout the hospital stay to a dose of 75 mcg by the time of discharge. The patient continued to be on oxycodone at 10 mg every 4 hours p.r.n., which he took almost on a scheduled basis. The patient was noted to have zinc deficiency although due to his vitamin D and vitamin E deficiency, a thought was from the Neurology standpoint that the zinc may cause for the patient not to absorb the remaining vitamins. He was started on multivitamin and continued on vitamin D. At this point, the zinc deficiency may need to be addressed as an outpatient later on. The patient also had an extensive workup including heavy metals screen, which was basically unremarkable. The patient was noted to be a heterozygote for MTHFR mutation, but his homocystine levels were within normal limits and likely this result is not of any clinical significance. The patient has elevated liver function tests for which Dr. Garcia saw the patient in consultation. It was thought likely to be due to hepatosteatosis, but the patient is recommended to follow up as an outpatient with Dr. Hannon for possibility of liver biopsy. By the time of discharge, the patient's pain was somewhat controlled and although he was still unhappy with the amount of narcotics he was getting and he felt that he needed more pain medications every day. I spoke with the patient at length about the dangers of narcotic dependence. He was ambulating without support by the time of discharge. After the patient's obstipation resolved, that he sill had urinary retention and he is going to go home with Lindsay catheter in place. The patient had problems with insurance. Apparently, he lost insurance just before he came to the hospital. Our case consultant has followed up with the patient and the Medicaid specialist. hot tamale worker saw the patient during the hospital stay. The patient has plans to get his Medicaid within the next few days. For the time being, he is asked to continue his home medications with the addition of oxycodone. He received 10 tablets of 10 mg worth of oxycodone from the hospital pharmacy. His fentanyl patch that he is going to have applied today at 75 mcg is going to last the patient for the next 3 days. The patient has an appointment for followup with Dr. Jamison at 1:15 tomorrow, on 09/24/18. I also spoke with Dr. Jamison's service about the patient's convoluted history. The patient also is recommended to follow up: 1. With Dr. Garcia in approximately 4 to 7 days in regards to urinary retention. 2. Dr. Webb in approximately 2 weeks in regards to his neuropathy. 3. Dr. Coles in approximately 2 to 4 weeks in regards to chronic pain management. 4. Dr. Hannon has an appointment scheduled for the patient on 10/08/18 for GI. 5. The patient also was referred to [facility] at [facility] and referral was sent to the group from our neurology group. PHYSICAL EXAMINATION: At the time of discharge, blood pressure of 160/84, heart rate of 80 and regular, respiratory rate of 18, oxygen saturation 94% on room air, temperature of 98.1. General: The patient is a pleasant 48-year-old male who is in no acute distress. Alert, awake, and oriented x3. HEENT: Head : Atraumatic, normocephalic. Eyes: Pupils are equal, reactive to light and accommodation. Oropharynx is clear. Mucosa moist. Neck: Supple. No JVD. No bruits bilaterally. Cardiovascular: Regular rate and rhythm. No murmur. Respiratory: Clear to auscultation bilaterally. Abdomen: Soft, minimally tender diffusely with no rebound, no guarding. Bowel sounds are present in all 4 quadrants. There are a couple of incisions from laparoscopic surgery that are Steri-Stripped and there is no evidence of dehiscence, drainage or skin infection. Extremities: There is no edema. Pulses are +2 bilaterally. No clubbing or cyanosis. On neuro evaluation, speech is clear. Cranial nerves II through XII grossly intact. Motor strength is 5/5 bilaterally. Patient is very tender to palpation in bilateral lower extremities, which is at this point unchanged for the past 11 days of his hospital stay. Please note that this is a short summary of the patient's hospital stay. Please also refer to further medical records for details. TIME SPENT: Approximately 50 minutes were spent on the patient's discharge. [id number]/[facility] #: [id number] SANYA
== END 2018-09-23 15:28 | disposition home or self-care (01) | DRG 982 ==
LOC: ED 09:42 → SSU 18:39 → OBSVTOIN 09-14 14:41 → MED 09-17 20:00
PROVIDERS: ADMIT Surgery; ATTEND Internal Medicine
PROC: 0DNU4ZZ Release Omentum, Percutaneous Endoscopic Approach (ICD-10-PCS; 2018-09-14)
PROC: 0DQV4ZZ Repair Mesentery, Percutaneous Endoscopic Approach (ICD-10-PCS; 2018-09-14)
PROC: 009U3ZX Drainage of Spinal Canal, Percutaneous Approach, Diagnostic (ICD-10-PCS; principal; 2018-09-16)
PROC: 0T9B70Z Drainage of Bladder with Drainage Device, Via Natural or Artificial Opening (ICD-10-PCS; 2018-09-23)
DX: G54.1 Lumbosacral plexus disorders (principal); E72.12 Methylenetetrahydrofolate reductase deficiency; G95.9 Disease of spinal cord, unspecified; J90 Pleural effusion, not elsewhere classified; R18.8 Other ascites; K56.7 Ileus, unspecified; K59.09 Other constipation; I10 Essential (primary) hypertension; G47.30 Sleep apnea, unspecified; K58.9 Irritable bowel syndrome, unspecified; E11.40 Type 2 diabetes mellitus with diabetic neuropathy, unspecified; F41.9 Anxiety disorder, unspecified; F32.9 Major depressive disorder, single episode, unspecified; G89.29 Other chronic pain; M54.9 Dorsalgia, unspecified; E66.9 Obesity, unspecified; E78.5 Hyperlipidemia, unspecified; E11.65 Type 2 diabetes mellitus with hyperglycemia; R33.9 Retention of urine, unspecified; E55.9 Vitamin D deficiency, unspecified; E60 Dietary zinc deficiency; K76.0 Fatty (change of) liver, not elsewhere classified; R77.1 Abnormality of globulin; E11.44 Type 2 diabetes mellitus with diabetic amyotrophy; T40.2X5A Adverse effect of other opioids, initial encounter; R54 Age-related physical debility; E56.0 Deficiency of vitamin E; K66.0 Peritoneal adhesions (postprocedural) (postinfection); G43.909 Migraine, unspecified, not intractable, without status migrainosus; Z80.3 Family history of malignant neoplasm of breast; Z87.891 Personal history of nicotine dependence; Z90.49 Acquired absence of other specified parts of digestive tract; Z98.84 Bariatric surgery status; Z79.4 Long term (current) use of insulin; Y92.9 Unspecified place or not applicable; Z83.3 Family history of diabetes mellitus; E11.649 Type 2 diabetes mellitus with hypoglycemia without coma; E87.1 Hypo-osmolality and hyponatremia
CPT/HCPCS: 36415; 70553; 72156; 72157; 72158; 74019; 74177; 74183; 80048; 80053; 81003; 81015; 82043; 82085; 82131; 82140; 82164; 82175; 82300; 82306; 82525; 82542; 82550; 82570; 82784; 82945; 83090; 83516; 83605; 83655; 83690; 83735; 83825; 84155; 84156; 84157; 84165; 84207; 84255; 84425; 84446; 84484; 84590; 84597; 84630; 85025; 85610; 85652; 85730; 86038; 86140; 86200; 86235; 86644; 86645; 86663; 87070; 87086; 87205; 87529; 87798; 89051; 90283; 95885; 95910; 99285; A9270-GY; A9579; J0330; J0360; J0690; J1100; J1170; J1459; J1644; J1885; J2250; J2405; J2704; J2710; J3010; J3411; J3475; Q9967

== ENCOUNTER 2018-11-14 06:53 | Day surgery (SDC) | payer BC, MEDICAID ==
[~2018-11-14 06:53] MED LIST: Acetaminophen TAB* 325 MG PO PRN; Buffered Lidocaine 1% SYRIN* 1 ML/SYRINGE INTRADERM ONE
[2018-11-14] MEDS ORDERED: Midazolam* 1 MG/ML 2 ML VIAL (2 MG) ONE (08:29)
[2018-11-14] MEDS ORDERED: fentaNYL* 50 MCG/ML 2 ML VIAL (100 MCG VIAL) ONE (08:49)
[2018-11-14 09:25] VITALS: BP 107/65
--- NOTE | 2018-11-14 12:31 | OP ---
OPERATIVE NOTE: DATE OF OPERATION: 11/14/18 DATE OF : 72 SURGEON: Misbah Reed M.D. PREOPERATIVE DIAGNOSIS: Cataract, right eye. POSTOPERATIVE DIAGNOSIS: Cataract, right eye. OPERATIVE PROCEDURE: Extracapsular cataract extraction with intraocular lens implant, right eye. DESCRIPTION OF PROCEDURE: The patient was brought to the operating room after being given 1/2% Alcai ne with epinephrine drops in the preoperative area. The eye was prepped and draped in the usual ster ile fashion. Sterile drape and eyelid speculum were placed. Again, topical 1/2% Alcaine with epinep hrine was given. A paracentesis incision was made at the 9 o'clock position with the No.75 blade. Cl ear cornea incision 2.2 x 2.2-mm was created at the o'clock position starting at the anterior l imbus using the 2.2-mm keratome. The anterior chamber was irrigated with 0.4 mL of 1% non-preservati ve intracameral lidocaine and filled with DisCoVisc. A capsulorrhexis was completed using the cystot ome and the Utrata forceps. Hydrodissection was performed with balanced salt solution. The lens nuc leus was removed with the Phacoemulsification handpiece without incident. Cortex was removed with the irrigation-aspiration handpiece. The capsular bag was re-inflated using DisCoVisc and an SN6AT5 12. 5 implant was inserted with the shooter, oriented to the 117-degree meridian. Horizontal reference m arks were made with the patient in the seated position in the preoperative area. All measurements we re confirmed with ORA. Prior to capsulorrhexis, the pupil was only 3 to 4 mm. A Malyugin ring was u sed to dilate the pupil prior to capsulorrhexis and removed after insertion of the lens. The irrigat ion-aspiration handpiece was used to remove all residual DisCoVisc. The eye was refilled with balanc ed salt solution and the wound checked and found to be watertight. Topical Maxitrol drops were given . Indication for complex cataract surgery: Pupil abnormalities requiring pupil dilation device. [id number]/[facility] #: [id number]
== END 2018-11-14 09:37 | disposition home or self-care (01) ==
LOC: OREAST 06:53
PROVIDERS: ATTEND Specialist
DX: H25.811 Combined forms of age-related cataract, right eye (principal); H21.561 Pupillary abnormality, right eye; E11.3293 Type 2 diabetes mellitus with mild nonproliferative diabetic retinopathy without macular edema, bilateral; Z79.4 Long term (current) use of insulin; Z79.84 Long term (current) use of oral hypoglycemic drugs; Z87.891 Personal history of nicotine dependence
CPT/HCPCS: J2250; J3010; V2787

== ENCOUNTER 2018-11-21 06:33 | Day surgery (SDC) | payer BC, MEDICAID ==
[2018-11-21] MEDS ORDERED: Insulin LISPRO* 1 UNITS UNIT SUBCUT ONE (07:11)
[2018-11-21] MEDS ORDERED: Midazolam* 1 MG/ML 2 ML VIAL (2 MG) ONE ×2 (07:43)
[2018-11-21] MEDS ORDERED: fentaNYL* 50 MCG/ML 2 ML VIAL (100 MCG VIAL) ONE (07:43)
[2018-11-21] MEDS ORDERED: EPHEDrine (Pressors)* 50 MG/ML VIAL ONE ×2 (08:13)
[2018-11-21] MEDS ORDERED: Neomycin/Polymy/Dex OPTH.SUSP* MAXITROL 0.1% 5 ML ONE ×2 (09:38)
[2018-11-21] MEDS ORDERED: Povidone Iodine 5% OPTH* 30 ML BTL ONE ×2 (09:38)
[2018-11-21] MEDS ORDERED: Ketorolac 0.5% OPHTH (NF) 0.5 % 5 ML BTL ONE ×2 (09:38)
[2018-11-21] MEDS ORDERED: Lidocaine 2% EPI 1:200000 MPF*10-20 ML VIAL ONE ×2 (09:38)
[2018-11-21] MEDS ORDERED: acetaZOLAMIDE TAB* 250 MG ONE ×2 (09:38)
[2018-11-21] MEDS ORDERED: Phenylephrine OPHTH SOL 2.5%* 2 ML ONE ×2 (09:38)
[2018-11-21] MEDS ORDERED: Lidocaine 1%* 5 ML VIAL ONE ×2 (09:38)
[2018-11-21] MEDS ORDERED: Cyclopentolate 1% OPTH.SOL* 2 ML BTL ONE ×2 (09:38)
[2018-11-21] MEDS ORDERED: Proparacaine 0.5% OPHTH.SOL* 15 ML BTL ONE ×2 (09:39)
[2018-11-21 10:06] VITALS: BP 84/51
--- NOTE | 2018-11-21 11:57 | OP ---
DATE OF OPERATION: 11/21/18 - [facility] DATE OF : 72 SURGEON: Misbah Reed M.D. INDICATION: Complex cataract surgery. Pupillary abnormalities requiring pupil dilation device. PREOPERATIVE DIAGNOSIS: Cataract, left eye. POSTOPERATIVE DIAGNOSIS: Cataract, left eye OPERATIVE PROCEDURE: Extracapsular cataract extraction with intraocular lens implant, left eye. DESCRIPTION OF PROCEDURE: The patient was brought to the operating room after being given 1/2% Alcaine with epinephrine drops in the preoperative area. The eye was prepped and draped in the usual sterile fashion. Sterile drape and eyelid speculum were placed. Again, topical 1/2% Alcaine with epinephrine was given. A paracentesis incision was made at the 3 o'clock position with the No.75 blade. Clear cornea incision 2.2 x 2.2-mm was created at the 6 o'clock position starting at the anterior limbus using the 2.2-mm keratome. The anterior chamber was irrigated with 0.4 mL of 1% non-preservative intracameral lidocaine and filled with DisCoVisc. A capsulorrhexis was completed using the cystotome and the Utrata forceps. Hydrodissection was performed with balanced salt solution. The lens nucleus was removed with the Phacoemulsification handpiece without incident. Cortex was removed with the irrigation-aspiration handpiece. The capsular bag was re-inflated using DisCoVisc and an SN6AT3 12.5 implant was inserted with the shooter oriented to the 92 degree meridian. The pupil was very small and Malyugin ring was used to dilate the pupil prior to capsulorrhexis, removed after insertion of the lens. Horizontal reference kramer were made with the patient in a seated position. All measurements were confirmed with ORA. The patient received SN6AT3 12.5 and was oriented to the 92 degree meridian. The irrigation-aspiration handpiece was used to remove all residual DisCoVisc. The eye was refilled with balanced salt solution and the wound checked and found to be watertight. Topical Maxitrol drops were given. [id number]/[facility] #: [id number] MTDD
== END 2018-11-21 10:00 | disposition home or self-care (01) ==
LOC: OREAST 06:33
PROVIDERS: ATTEND Specialist
DX: H25.812 Combined forms of age-related cataract, left eye (principal); H21.562 Pupillary abnormality, left eye; E11.3293 Type 2 diabetes mellitus with mild nonproliferative diabetic retinopathy without macular edema, bilateral; Z79.4 Long term (current) use of insulin; Z79.84 Long term (current) use of oral hypoglycemic drugs; Z87.891 Personal history of nicotine dependence; M54.5 Low back pain; Z79.891 Long term (current) use of opiate analgesic
CPT/HCPCS: A9270-GY; J2250; J3010; V2787

== ENCOUNTER → 2018-11-30 09:18 | Day surgery (SDC) | payer MEDICAID ==
[~2018-11-30 09:18] MED LIST changes: -Acetaminophen TAB* 325 MG PO PRN; +Famotidine IV* 10 MG/ML 2 ML (20 mg) IV ONE; +Famotidine IV* 10 MG/ML 2 ML (20 mg) ONE; +Lactated Ringers 1000 ML Bag* 1,000 ML IV SCH; +Lidocaine 2% PF * 5 ML VIAL ONE; +Midazolam* 1 MG/ML 5 ML VIAL (5 MG) ONE; +Naloxone* 0.4 MG/ML 1 ML VIAL IV PRN; +Ondansetron INJ* 2 MG/ML VIAL ONE; +Propofol* 10 MG/ML 20 ML BTL ONE; +fentaNYL* 50 MCG/ML 2 ML VIAL (100 MCG VIAL) ONE
[2018-11-30 13:35] VITALS: BP 130/82
--- NOTE | 2018-12-01 00:55 | PRO ---
CC: Sanford Jamison DO * COLONOSCOPY REPORT: DATE OF PROCEDURE: 11/30/18 - [facility] PHYSICIAN: Sanford Jamison DO INDICATION FOR PROCEDURE: Constipation. PROCEDURE PERFORMED: Colonoscopy to the cecum. MEDICATIONS GIVEN: Please see Anesthesia record. DESCRIPTION OF PROCEDURE: After the colonoscopy procedure including the risks, benefits, and alternatives with the risks not limited to perforation, surgery, missed lesions, and/or were explained to the patient, written informed consent was obtained. IV medication was given and a rectal exam was performed. The rectal exam was unremarkable. The adult Olympus colonoscope was then inserted very carefully into the rectum and advanced all the way to the cecum. The preparation was incredibly poor; however, I was able to exclude any large lesions within the lumen. The exam was not sufficient for a small polyp detection or even moderate polyp detection. This was despite an extended prep. After reaching the cecum, the scope was carefully withdrawn over the next 7 minutes, carefully inspecting the area; however, the views were grossly limited as we had discussed. On return to the rectum, views were limited, but appeared grossly normal without any large lesions. Retroflexion was not attempted due to stool. The scope was then removed from the patient. He tolerated the procedure well. He returned to the recovery room in stable condition. IMPRESSION: 1. Colonoscopy to the cecum. 2. Poor prep but able to exclude large lesions. 3. Not able to exclude small and moderate lesions or flat lesions. 4. No signs of any type of obstruction. RECOMMENDATIONS: At this point, would plan on beginning the patient on Amitiza 24 mcg b.i.d. In addition, he should continue his MiraLAX therapy. If he is still not moving his bowels, he will contact me within 1 week and we will start Dulcolax, the MiraLAX is on top of this. This is partially contributing to his opiate- induced constipation along with traditional constipation prior to that. Recommend titrating down on opioid as much as possible as I do fear termite helper what the consequences could be on his colon. He is aware of this and we will discuss with his pain management team. We will plan on repeat colonoscopy potentially in 1 year for polyp evaluation. [id number]/[facility] #: [id number] SANYA
== END | disposition home or self-care (01) ==
LOC: OR 09:18
PROVIDERS: ATTEND Internal Medicine Gastroenterology
DX: K59.00 Constipation, unspecified (principal)
CPT/HCPCS: J2250; J2405; J2704; J3010

== ENCOUNTER 2018-12-04 19:08 | Inpatient (IN) | payer MEDICAID, OTHER ==
--- OUTSIDE RECORDS SUMMARY | 2018-12-04 19:33 | XMS REPORT | Continuity of Care Document ---
:1970 External Reference #:[id number] Author Name Sanford Jamison D.O. Address [address] [place] [id number] Care Team Providers Name Role Phone HCP given Primary Care Physician Unavailable Payers Date Identification Numbers Payment Provider Subscriber Policy Number: [id number] Medicaid Taz Reynolds PayID: [id number] [place] [address] Advance Directives Description No Information Available Problems Active Problems Provider Date Type 2 diabetes mellitus Sanford Jamison D.O. Onset: 09/07/2018 Peritoneal adhesion Sanford Jamison D.O. Onset: 09/24/2018 Type II diabetes mellitus uncontrolled Sanford Jamison D.O. Onset: 09/24/2018 Low back pain Sanford Jamison D.O. Onset: 09/24/2018 Abdominal pain Sanford Jamison D.O. Onset: 09/24/2018 Bariatric surgery status Sanford Jamison D.O. Onset: 09/24/2018 Other idiopathic peripheral autonomic Sanford Jamison D.O. Onset: 09/24/2018 neuropathy Family History Date Family Member(s) Observation Comments Siblings 4 Brothers Siblings 2 Sisters Social History Type Date Description Comments Sex Unknown Marital Status Lives With Parents Work Status Not Currently Working due to medical issues Hand Dominance 11/05/2018 Right-handed Tobacco Use Start: Unknown End: Former Cigarette Smoker 1/2 PPD, started 15 Unknown y/o and ended 07/2018 Tobacco Use Start: Unknown End: Patient is a former smoker Unknown Smoking Status Reviewed: 12/04/18 Patient is a former smoker Allergies, Adverse Reactions, Alerts Description No Known Drug Allergies Medications Active Medications SIG Qnty Indications Ordering Date Provider Artificial Tears 1 drop right eye 45ml Sanford Jamison, 12/04/2018 1.4% twice daily on a D.O. Solution regular basis and might use 1 drop in either eye twice a day as needed Multivitamin one po daily Sanford Jamison, 12/03/2018 D.O. Tramadol HCL Take 1 Tablet By Unknown 11/02/2018 50mg Mouth Three Times Tablets Daily as Needed For Breakthrough Pain Between Oxycodone Doses -- Maximum Daily Dose Of 3 Per Day Zinc 1 by mouth every day Unknown 10/04/2018 50mg Tablets Polyethylene Glycol 1-2 capful in 8 oz K59.00 Unknown 09/23/2018 3350 of water by mouth 3350NF Packet daily for constipation Lantus inject 12 units Unknown 09/06/2018 100Unit/ML daily Solution Humalog Kwikpen 1unit per 10 carbs 90ml Unknown 09/06/2018 100Unit/ML Solution Pen-Inject Oxycodone HCL 1 by mouth every 4 [place], 10mg hours as needed for MD Spencer Tablets pain. Morphine Sulfate ER Take 1 Tablet By Unknown Mouth Three Times 60mg Tablets ER Daily as Needed - Maximum Daily Dose Of 3 Tablets Per Day Gabapentin Take 1 Capsule By Unknown 300mg Mouth Three Times Capsules Daily History Medications J-Muznzfqxauza-Rfsxq-B12-B6 1 by mouth twice 180caps [facility]merari, 11/16/2018 - 3-90.314-2-35mg a day Gladis Christina.O. 12/03/2018 Capsules Metanx 1 by mouth twice 180caps [place], 10/19/2018 - 3-90.314-2-35mg Capsules a day Sanford D.O. 11/16/2018 Z-Ibiorrsbgvpg-Bucxp-B12-B6 1 by mouth twice 180caps [facility]mer[facility], 10/05/2018 - 3-90.314-2-35mg a day Gladis Christina.O. 10/19/2018 Capsules Alfuzosin HCL ER 1 tablet daily, Unknown 10/04/2018 - 10mg Tablets ER 24HR for enlarged 10/29/2018 prostate Lisinopril 1 by mouth twice 180tabs I10 [facility]merari, 10/04/2018 - 10mg Tablets daily Gladis Christina.O. 10/30/2018 Magnesium daily [facility], 10/04/2018 - Sanford D.O. 12/03/2018 Metanx 1 by mouth twice 180caps [facility], 09/24/2018 - 3-90.314-2-35mg Capsules a day Sanford D.O. 10/05/2018 Fentanyl apply 1 patch to 10units [facility], 09/23/2018 - 75mcg/HR Patches 72HR skin every 3 Sanford, D.O. 12/03/2018 days remove previous patch. post op continuation of pain Oxycodone HCL take 2 capsule 168caps [facility], 09/23/2018 - 5mg Capsules by mouth every 4 Sanford, D.O. 10/05/2018 hours as needed for pain Calcium Chew 3 po daily Unknown 09/23/2018 - 12/03/2018 Metanx 1 by mouth twice 180caps [facility], 09/13/2018 - 3-90.314-2-35mg Capsules a day Sanford D.O. 09/13/2018 Lisinopril take one tablet Unknown 09/06/2018 - 20mg Tablets by mouth every 10/05/2018 day for high blood pressure Metformin HCL take one tablet 180tabs [facility], 09/06/2018 - 1000mg Tablets by mouth twice a Sanford, D.O. 12/03/2018 day Vitamin D3 Ultra Potency 1 tab by mouth 1 Unknown 09/06/2018 - [id number] Tablets time a week for 12/03/2018 vitamin d deficiency Percocet 1 tab every 4 180tabs G89. [facility], 09/06/2018 - 5-325mg Tablets hours as needed 4 Sanford, D.O. 09/23/2018 Lyrica 50mg 1 three times a Unknown - Capsules day 12/03/2018 Chantix 1mg 1 pill twice Unknown - Tablets daily to help 12/04/2018 quit smoking Medications Administered in Office Medication SIG Qnty Indications Ordering Provider Date B12 Injection Sanford Jamison D.O. 09/07/2018 Injection SC/Im Injections Sanford Jamison D.OLaurie 09/07/2018 Injection Immunizations CPT Code Status Date Vaccine Lot # [id number] Given 07/01/2016 Td(Adult),Unspecified Vital Signs Date Vital Result Comment 12/04/2018 4:41pm BP Systolic 148 mmHg BP Diastolic 82 mmHg Weight 145.00 lb with sneakers 11/05/2018 10:08am BP Systolic 118 mmHg BP Diastolic 80 mmHg Weight 142.00 lb with sneakers 10/05/2018 11:54am BP Systolic 136 mmHg BP Diastolic 80 mmHg Weight 152.00 lb w/shoes 09/24/2018 1:37pm BP Systolic 142 mmHg BP Diastolic 88 mmHg Weight 168.00 lb with sneakers 09/07/2018 11:24am BP Systolic 130 mmHg BP Diastolic 80 mmHg Height 67 inches 5'7" Weight 148.00 lb BMI (Body Mass Index) 23.2 kg/m2 Results Test Date Facility Test Result H/L Range Note Laboratory test [facility] Point [facility] 135 mg/dL High 70- 100 1 finding [phone] Glucose Laboratory test [facility] Point [facility] 158 mg/dL High 70- 100 2 finding [phone] Glucose Laboratory test [facility] 171 mg/dL High 70- 100 3 finding [phone] Glucose Laboratory test [facility] 252 mg/dL High 70- 100 4 finding [phone] Glucose Laboratory test [facility] 212 mg/dL High 70- 100 5 finding 9 [phone] Glucose Laboratory test In House Hemoglobin A1c 8.7 finding 9 Alkaline Phos [facility] Alkaline 363 U/L Abnormal 40 - 129 Isoenzymes 9 [phone] Phosphatase Alp Liver 1% 47.0 % 27.8-76.3 Alp Liver 1 170.6 IU/L Abnormal 16.2-70.2 Alp Liver 2% 28.5 % Abnormal 0.0-8.0 Alp Liver 2 103.5 IU/L Abnormal 0.0-5.8 Alp Bone % 24.5 % 19.1-67.7 Alp Bone 88.9 IU/L Abnormal 12.1-42.7 Alp Intestine % 0.0 % 0.0-20.6 Alp Intestine 0.0 IU/L 0.0-11.0 Alp Placental NotPresent 6 Laboratory test 10/05/2018 [facility] Vitamin A 48.7 g/dL 32.5- 78.0 7 finding [phone] (Retinol) Vitamin E 13.4 mg/L 5.5 - 17.0 8 Vitamin E 10/05/2018 [facility] Vitamin E 13.4 mg/L 5.5 - 17.0 9 [phone] Laboratory test 10/05/2018 [facility] Vitamin A 48.7 g/dL 32.5- 78.0 10 finding [phone] (Retinol) Pthi 10/05/2018 [facility] Calcium (PTH 8.7 mg/dL N 8.6-10.3 [phone] Intact) PTH Intact 3.3 pmol/L N 1.3-9.3 Laboratory test finding 10/05/2018 [facility] Iron (Fe) 32 g/dL Low 50-212 [phone] TSH (Thyroid Stim Horm) 1.14 mcIU/mL N 0.34-5.60 Vitamin B12 744 pg/mL N 180-914 11 Vitamin D Total 25(Oh) 24.9 ng/mL N 20-50 Comp Metabolic Panel 10/05/2018 [facility] Sodium 138 mmol/L N 135- 145 [phone] Potassium 5.0 mmol/L N 3.5-5.0 Chloride 99 mmol/L Low 101-111 Co2 Carbon Dioxide 36 mmol/L High 22-32 Anion Gap 3 mmol/L N 2-11 Glucose 130 mg/dL High 70-100 Blood Urea Nitrogen 31 mg/dL High 6-24 Creatinine 0.56 mg/dL Low 0.67-1.17 BUN/Creatinine Ratio 55.4 High 8-20 Calcium 8.5 mg/dL Low 8.6-10.3 Total Protein 6.5 g/dL N 6.4-8.9 Albumin 2.8 g/dL Low 3.2-5.2 Globulin 3.7 g/dL N 2-4 Albumin/Globulin Ratio 0.8 Low 1-3 Total Bilirubin 0.30 mg/dL N 0.2-1.0 Alkaline Phosphatase 330 U/L High 34-104 Alt 31 U/L N 7-52 Ast 43 U/L High 13-39 Egfr Non- 156.4 >60 Egfr 189.2 >60 12 CBC Auto Diff 10/05/2018 [facility] White Blood Count 5.2 10^3/uL N 3.5-10.8 [phone] Red Blood Count 4.41 10^6/uL N 4.00-5.40 Hemoglobin 12.8 g/dL Low 14.0-18.0 Hematocrit 38 % Low 42-52 Mean Corpuscular Volume 86 fL N 80-94 Mean Corpuscular Hemoglobin 29 pg N 27-31 Mean Corpuscular HGB Conc 34 g/dL N 31-36 Red Cell Distribution Width 13 % N 10.5-15 Platelet Count 455 10^3/uL High 150-450 Mean Platelet Volume 7.2 fL Low 7.4-10.4 Abs Neutrophils 3.5 10^3/uL N 1.5-7.7 Abs Lymphocytes 1.0 10^3/uL N 1.0-4.8 Abs Monocytes 0.6 10^3/uL N 0-0.8 Abs Eosinophils 0.1 10^3/uL N 0-0.6 Abs Basophils 0.1 10^3/uL N 0-0.2 Abs Nucleated RBC 0 10^3/uL Granulocyte % 66.2 % Lymphocyte % 19.2 % Monocyte % 11.0 % Eosinophil % 2.4 % Basophil % 1.2 % Nucleated Red Blood Cells % 0 Inr/Protime 10/05/2018 [facility] Inr 0.89 N 0.77-1.02 [phone] Fentanyl 09/27/2018 [facility] Norfentanyl Level 546.2 13 Confirmation Urine [phone]/mL Fentanyl Level 39.2 ng/mL 14 Fentanyl Interp Positive. 15 Drug Abuse 20 Urine 09/27/2018 [facility] Urine Amphetamine Negative ng /mL 16 [phone] Urine Barbiturates Negative ng/mL 17 Urine Benzodiazepines Negative ng/mL 18 Urine Cocaine Negative ng/mL 19 Urine Phencyclidine Negative ng/mL Cutoff: 25 Urine Tetrahydrocannabinol Negative ng/mL Cutoff: 50 20 Creatinine, Urine 246.4 mg/dL Specific [place] 1.022 pH 5.8 Oxidants Negative 21 Adulterants Comment Normal Codeine, Ur Not Detected ng/mL Cutoff: 25 22 Gezsfuv-1-gekz-glucuronide, Ur Not Detected ng/mL 23 Morphine, Ur Not Detected ng/mL Cutoff: 25 24 Aiycbhta-6-fcdx-glucuronide, U Not Detected ng/mL 25 6-monoacetylmorphine, Ur Not Detected ng/mL Cutoff: 25 26 Hydrocodone, Ur Not Detected ng/mL Cutoff: 25 27 Norhydrocodone, Ur Not Detected ng/mL Cutoff: 25 28 Dihydrocodeine, Ur Not Detected ng/mL Cutoff: 25 29 Hydromorphone, Ur Not Detected ng/mL Cutoff: 25 30 Pzywpvpzihktw0ahbqrajmlqsjhaf Not Detected ng/mL 31 Oxycodone, Ur Present ng/mL Abnormal Cutoff: 25 32 Noroxycodone, Ur Present ng/mL Abnormal Cutoff: 25 33 Oxymorphone, Ur Not Detected ng/mL Cutoff: 25 34 Dfrboneugsk-1-nvpw-glucuronide Present ng/mL Abnormal 35 Noroxymorphone, Ur Present ng/mL Abnormal Cutoff: 25 36 Fentanyl, Ur Present ng/mL Abnormal Cutoff: 2 37 Norfentanyl, Ur Present ng/mL Abnormal Cutoff: 2 38 Meperidine, Ur Not Detected ng/mL Cutoff: 25 39 Normeperidine, Ur Not Detected ng/mL Cutoff: 25 40 Naloxone, Ur Not Detected ng/mL Cutoff: 25 41 Wslfyfta-5-egrt-glucuronide, U Not Detected ng/mL 42 Methadone, Ur Not Detected ng/mL Cutoff: 25 43 Eddp, Ur Not Detected ng/mL Cutoff: 25 44 Propoxyphene, Ur Not Detected ng/mL Cutoff: 25 45 Norpropoxyphene, Ur Not Detected ng/mL Cutoff: 25 46 Tramadol, Ur Not Detected ng/mL Cutoff: 25 47 O-desmethyltramadol, Ur Not Detected ng/mL Cutoff: 25 48 Tapentadol, Ur Not Detected ng/mL Cutoff: 25 49 N-desmethyltapentadol, Ur Not Detected ng/mL Cutoff: 50 50 Jqiuqfpicc-fcvz-mzkyegfhbwy, U Not Detected ng/mL 51 Buprenorphine, Ur Not Detected ng/mL Cutoff: 5 52 Norbuprenorphine, Ur Not Detected ng/mL Cutoff: 5 53 Norbuprenorphine glucuronide Not Detected ng/mL Cutoff: 20 54 Opioid Interpretation See Comment 55 Urine Culture And 09/13/2018 [facility] Urine Culture SEE RESULT 56 Sensitivities [phone] BELOW Urinalysis Profile 09/13/2018 [facility] Urine Color Yellow [phone] Urine Appearance Clear Urine Specific [place] 1.021 N 1.010-1.030 Urine pH 7.0 N 5-9 Urine Urobilinogen Positive Abnormal Negative Urine Ketones Negative Negative Urine Protein 2+(100 mg/dL) Abnormal Negative Urine Leukocytes Negative Negative Urine Blood Negative Negative Urine Nitrite Negative Negative Urine Bilirubin Negative Negative Urine Glucose 1+(50 mg/dL) Abnormal Negative Urine White Blood Cell Trace(0-5/hpf) Absent Urine Red Blood Cell Trace(0-2/hpf) Absent Urine Bacteria Absent Absent Laboratory test finding 09/13/2018 [facility] Lipase 56 U/L N 11.0- 82.0 [phone] C Reactive Protein 5.83 mg/L N <8.01 Troponin-I (TnI) 0.01 ng/mL <0.04 57 Comp Metabolic Panel 09/13/2018 [facility] Sodium 136 mmol/L N 135- 145 [phone] Potassium 4.5 mmol/L N 3.5-5.0 Chloride 102 mmol/L N 101-111 Co2 Carbon Dioxide 32 mmol/L N 22-32 Anion Gap 2 mmol/L N 2-11 Glucose 101 mg/dL High 70-100 Blood Urea Nitrogen 30 mg/dL High 6-24 Creatinine 0.67 mg/dL N 0.67-1.17 BUN/Creatinine Ratio 44.8 High 8-20 Calcium 8.0 mg/dL Low 8.6-10.3 Total Protein 5.0 g/dL Low 6.4-8.9 Albumin 2.6 g/dL Low 3.2-5.2 Globulin 2.4 g/dL N 2-4 Albumin/Globulin Ratio 1.1 N 1-3 Total Bilirubin 0.30 mg/dL N 0.2-1.0 Alkaline Phosphatase 314 U/L High 34-104 Alt 101 U/L High 7-52 Ast 69 U/L High 13-39 Egfr Non- 127.1 >60 Egfr 153.8 >60 58 Laboratory test 09/13/2018 [facility] Lactic Acid 1.7 mmol/L N 0.5- 2.0 59 finding [phone] CBC Auto Diff 09/13/2018 [facility] White Blood 5.7 10^3/uL N 3.5- 10.8 [phone] Count Red Blood Count 4.05 10^6/uL N 4.00-5.40 Hemoglobin 12.2 g/dL Low 14.0-18.0 Hematocrit 36 % Low 42-52 Mean Corpuscular Volume 88 fL N 80-94 Mean Corpuscular Hemoglobin 30 pg N 27-31 Mean Corpuscular HGB Conc 34 g/dL N 31-36 Red Cell Distribution Width 12 % N 10.5-15 Platelet Count 299 10^3/uL N 150-450 Mean Platelet Volume 7.1 fL Low 7.4-10.4 Abs Neutrophils 3.4 10^3/uL N 1.5-7.7 Abs Lymphocytes 1.3 10^3/uL N 1.0-4.8 Abs Monocytes 0.8 10^3/uL N 0-0.8 Abs Eosinophils 0.1 10^3/uL N 0-0.6 Abs Basophils 0.1 10^3/uL N 0-0.2 Abs Nucleated RBC 0 10^3/uL Granulocyte % 59.9 % Lymphocyte % 23.3 % Monocyte % 14.2 % Eosinophil % 1.1 % Basophil % 1.5 % Nucleated Red Blood Cells % 0 Laboratory test 09/13/2018 [facility] Point of Care 65 mg/dL Low 70- 100 60 finding [phone] Glucose Laboratory test 09/13/2018 [facility] Point of Care 54 mg/dL Low 70- 100 61 finding [phone] Glucose West Nile Igg And 09/07/2018 [facility] West Nile Virus Negative Negative Igm [phone] IgG West Nile Virus IgM Negative Negative West Nile Serum Interpretation See Comment 62 Laboratory test 09/07/2018 [facility] Syphillis Igg Nonreactive Nonreactive 63 finding [phone] W/Reflex RPR Blood Culture SEE RESULT BELOW 64 HIV 1/2 AB 09/07/2018 [facility] HIV 1 2 Nonreactive Nonreactive 65 Evaluation [phone] Antibody MTHFR 09/07/2018 [facility] MTHFR Heterozygous Abnormal Negative Mutation [phone] C677T Detection Mutation MTHFR Interpretation See Comment 66 MTHFR Reviewed By See Comment 67 MTHFR [id number] Mutation Heterozygous Abnormal Negative Mthac Interpretation See Comment 68 Mthac Reviewed By See Comment 69 Laboratory test 09/07/2018 [facility] Vitamin B12 743 pg/mL N 180- 914 70 finding [phone] Tick-Borne Panel 09/07/2018 [facility] Babesia microti Negative Negative PCR Blood [phone] PCR Babesia ducani Negative Negative Babesia divergens/Mo-1 Negative Negative 71 Anaplasma phagocytophilum Negative Negative Ehrlichia chaffeensis Negative Negative Ehrlichia ewingii/canis Negative Negative B. miyamotoi PCR, B Negative Negative 72 Ehrlichia muris eauclairensis Negative Negative 73 Lyme Western Blot 09/07/2018 [facility] Lyme Disease IgG Negative Negative [phone] Ab WB Lyme Disease IgG Bands Present No bands detecte <SEE NOTE> kDa 74 Lyme Disease IgM Ab WB Negative Negative Lyme Disease IgM Bands Present No bands detecte <SEE NOTE> kDa 75 Lyme Disease Interpretation See Comment 76 Celiac Panel 09/07/2018 [facility] Tissue Transglutaminase IgA <1.2 U/ mL 77 [phone] Ab Immunoglobulin A 190 mg/dL 61 - 356 Celiac Interpretation See Comment 78 Celiac Hla 09/07/2018 [facility] Hla-Dqa1 SEE BELOW 79 [phone] Hla-DQB1 SEE BELOW 80 Celiac Gene Pairs Present? Yes Celiac Gene Interpretation See Comment 81 Laboratory test 09/07/2018 [facility] Folic Acid > 20.00 ng/mL > 3.99 finding [phone] (Folate) Magnesium 1.9 mg/dL N 1.9-2.7 Comp Metabolic Panel 09/07/2018 [facility] Sodium 139 mmol/L N 135- 145 [phone] Potassium 4.3 mmol/L N 3.5-5.0 Chloride 101 mmol/L N 101-111 Co2 Carbon Dioxide 32 mmol/L N 22-32 Anion Gap 6 mmol/L N 2-11 Glucose 177 mg/dL High 70-100 Blood Urea Nitrogen 26 mg/dL High 6-24 Creatinine 0.66 mg/dL Low 0.67-1.17 BUN/Creatinine Ratio 39.4 High 8-20 Calcium 8.6 mg/dL N 8.6-10.3 Total Protein 5.6 g/dL Low 6.4-8.9 Albumin 3.3 g/dL N 3.2-5.2 Globulin 2.3 g/dL N 2-4 Albumin/Globulin Ratio 1.4 N 1-3 Total Bilirubin 0.30 mg/dL N 0.2-1.0 Alkaline Phosphatase 214 U/L High 34-104 Alt 52 U/L N 7-52 Ast 35 U/L N 13-39 Egfr Non- 129.4 >60 Egfr 156.5 >60 82 CBC Auto Diff 09/07/2018 [facility] White Blood Count 6.3 10^3/uL N 3.5-10.8 [phone] Red Blood Count 4.61 10^6/uL N 4.00-5.40 Hemoglobin 13.9 g/dL Low 14.0-18.0 Hematocrit 41 % Low 42-52 Mean Corpuscular Volume 90 fL N 80-94 Mean Corpuscular Hemoglobin 30 pg N 27-31 Mean Corpuscular HGB Conc 34 g/dL N 31-36 Red Cell Distribution Width 13 % N 10.5-15 Platelet Count 359 10^3/uL N 150-450 Mean Platelet Volume 8.0 fL N 7.4-10.4 Abs Neutrophils 4.2 10^3/uL N 1.5-7.7 Abs Lymphocytes 1.3 10^3/uL N 1.0-4.8 Abs Monocytes 0.6 10^3/uL N 0-0.8 Abs Eosinophils 0.1 10^3/uL N 0-0.6 Abs Basophils 0.1 10^3/uL N 0-0.2 Abs Nucleated RBC 0 10^3/uL Granulocyte % 66.8 % Lymphocyte % 20.0 % Monocyte % 10.0 % Eosinophil % 2.0 % Basophil % 1.2 % Nucleated Red Blood Cells % 0 1 Weir Fisher: [id number] 2 Weir Fisher: [id number] 3 Weir Fisher: [id number] 4 Weir Fisher: [id number] 5 Weir Fisher: [id number] REFERENCE VALUE Not present Test Performed by: [facility] [address] , [place] [address] 7 ADDITIONAL INFORMATION This test was developed and its performance characteristics determined by [facility] in a manner consistent with CLIA requirements. This test has not been cleared or approved by the U.S. Food and Drug Administration. Test Performed by: [facility] - [address] [address] 8 ADDITIONAL INFORMATION This test was developed and its performance characteristics determined by [facility] in a manner consistent with CLIA requirements. This test has not been cleared or approved by the U.S. Food and Drug Administration. Test Performed by: [facility] - [address] [address] 9 ADDITIONAL INFORMATION This test was developed and its performance characteristics determined by [facility] in a manner consistent with CLIA requirements. This test has not been cleared or approved by the U.S. Food and Drug Administration. Test Performed by: [facility] - [address] [address] 10 ADDITIONAL INFORMATION This test was developed and its performance characteristics determined by [facility] in a manner consistent with CLIA requirements. This test has not been cleared or approved by the U.S. Food and Drug Administration. Test Performed by: [facility] - [address] [address] 11 Normal Range 180 to 914 Indeterminate Range 145 to 180 Deficient Range <145 12 Because ethnic data is not always readily available, this report includes an eGFR for both -Americans and non- Americans. The National Kidney Disease Education Program (NKDEP) does not endorse the use of the MDRD equation for patients that are not between the ages of 18 and 70, are , have extremes of body size, muscle mass, or nutritional status, or are non- or non-. According to the National Kidney Foundation, irrespective of diagnosis, the stage of the disease is based on the level of kidney function: Stage Description GFR(mL/min/1.73 m(2)) 1 Kidney damage with normal or decreased GFR 90 2 Kidney damage with mild decrease in GFR 60-89 3 Moderate decrease in GFR 30-59 4 Severe decrease in GFR 15-29 5 Kidney failure <15 (or dialysis) 13 REFERENCE VALUE Cutoff: 1.0 14 REFERENCE VALUE Cutoff: 0.2 15 ADDITIONAL INFORMATION This test was developed and its performance characteristics determined by [facility] in a manner consistent with CLIA requirements. This test has not been cleared or approved by the U.S. Food and Drug Administration. Test Performed by: [facility] [address] [place] [id number] REFERENCE VALUE Cutoff: 500 17 REFERENCE VALUE Cutoff: 200 18 REFERENCE VALUE Cutoff: 100 19 REFERENCE VALUE Cutoff: 150 20 ADDITIONAL INFORMATION This report is intended for use in clinical monitoring or management of patients. It is not intended for use in employment-related testing. 21 REFERENCE VALUE Cutoff: 200 mg/L 22 Tylenol 3 23 Metabolite of codeine REFERENCE VALUE Cutoff: 100 24 Marielos John, MS Contin; Also a minor metabolite (10%) of codeine and can be seen in low concentrations (<2,000 ng/mL) with poppy seed ingestion. 25 Metabolite of morphine REFERENCE VALUE Cutoff: 100 26 Metabolite of heroin 27 Lortab, [place], Vicodin; Also a very minor metabolite of codeine and impurity (<1%) of oxycodone. 28 Metabolite of hydrocodone 29 Metabolite of hydrocodone 30 Dilaudid, Exalgo; Also a metabolite of hydrocodone and a minor (<5%) metabolite of morphine. 31 Metabolite of hydromorphone REFERENCE VALUE Cutoff: 100 32 Endocet, Percocet, Oxycontin 33 Metabolite of oxycodone 34 Numorphan, Opana; Also a metabolite of oxycodone. 35 Metabolite of oxymorphone REFERENCE VALUE Cutoff: 100 36 Metabolite of oxymorphone 37 Actiq, Duragesic, Fent[place] 38 Metabolite of fentanyl 39 Demerol 40 Metabolite of meperidine 41 Narcan 42 Metabolite of naloxone REFERENCE VALUE Cutoff: 100 43 Dolophine 44 Metabolite of methadone 45 Darvon, Darvocet 46 Metabolite of propoxyphene 47 Tradol, Ultram, Ultracet 48 Metabolite of tramadol 49 Nucynta 50 Metabolite of tapentadol 51 Metabolite of tapentadol REFERENCE VALUE Cutoff: 100 52 Buprenex, Suboxone 53 Metabolite of buprenorphine 54 Metabolite of buprenorphine 55 Test detected the presence of oxycodone and several metabolites (noroxycodone, noroxymorphone, and ugmbqucijuv-4-ilei-glucuronide). Suspect use of oxycodone and/or oxymorphone within the past three days. Test detected the presence of fentanyl and its metabolite (norfentanyl). Suspect use of fentanyl within the past three days. ADDITIONAL INFORMATION This test was developed and its performance characteristics determined by [facility] in a manner consistent with CLIA requirements. This test has not been cleared or approved by the U.S. Food and Drug Administration. Test Performed by: [facility] [address] [place] [address] 56 SEE RESULT BELOW Name: TAZ REYNOLDS : [address]: Michael Alexis MD Acct: [id number] Unit: [id number] AGE: 48 Location: [address] Re09/14/18 SEX: M Status: ADM IN SPEC: [id number] JACKSON: 09/14/18 [facility] DR: Farhan Pham MD REQ: [id number] RECD: 09/14/18 STATUS: COMP BENITEZ DR: DO Sanford Mayo DO _ SOURCE: URINE SPDESC: ORDERED: Urine Culture Procedure Result Reported Site Urine Culture Final 09/15/18- 926 ML No Growth (<1,000 CFU/mL) * ML - Main Lab . END OF REPORT DEPARTMENT OF PATHOLOGY, [address] [place] [address] Wild Alves M.D. Director [facility] # [id number] 57 Troponin-I testing on Plasma Separator Tubes (PST) has a known false positive rate of 0.20-0.40%. All positive troponins reflex immediate secondary confirmatory testing. 58 Because ethnic data is not always readily available, this report includes an eGFR for both -Americans and non- Americans. The National Kidney Disease Education Program (NKDEP) does not endorse the use of the MDRD equation for patients that are not between the ages of 18 and 70, are , have extremes of body size, muscle mass, or nutritional status, or are non- or non-. According to the National Kidney Foundation, irrespective of diagnosis, the stage of the disease is based on the level of kidney function: Stage Description GFR(mL/min/1.73 m(2)) 1 Kidney damage with normal or decreased GFR 90 2 Kidney damage with mild decrease in GFR 60-89 3 Moderate decrease in GFR 30-59 4 Severe decrease in GFR 15-29 5 Kidney failure <15 (or dialysis) 59 [facility] Severe Sepsis and Septic Shock Management Bundle Measure requires all lactic acids initially measuring >2.0 mmol/L be repeated. 60 Weir Fisher: [id number] 61 Weir Fisher: [id number] 62 No antibodies to WNV detected. Repeat testing in 10-14 days if clinical suspicion persists. Test Performed by: [facility] [address] [place] [address] 63 Warning: A positive result is not useful for establishing a diagnosis of syphilis. In most situations, such a result may reflect a prior treated infection; a negative result can exclude a diagnosis of syphilis except for incubating or early primary disease. 64 SEE RESULT BELOW Name: TAZ REYNOLDS : [address]: Sanford Jamison DO Acct: [id number] Unit: [id number] AGE: 48 Location: [facility] Re09/07/18 SEX: M Status: REG REF SPEC: [id number] JACKSON: 09/07/[address]: Sanford Jamison DO REQ: [id number] RECD: 09/07/18 STATUS: COMP _ SOURCE: BLOOD,VENO SPDESC: ORDERED: Blood Cult Procedure Result Reported Site Aerobic Culture Bottle Final 09/12/18- 1229 ML No Growth Day 5 Anaerobic Culture Bottle Final 09/12/18- 1229 ML No Growth Day 5 * ML - Main Lab . END OF REPORT DEPARTMENT OF PATHOLOGY, [address] [place] [address] Wild Alves M.D. Director [facility] # [id number] 65 It is recognized that currently available assays for the detection of antibodies to HIV-1 and/or HIV-2 may not detect all infected individuals. HIV antibodies may be undetectable in some stages of the infection and in some clinical conditions. The performance of this assay has not been established for populations of infants or children. Assayed by Chemiluminescence Microparticle Immunoassay on the Siemens Advia Centaur CP. Values obtained with different methods or kits cannot be used interchangeably.The diagnostic specificity of the ADVIA Centaur 1/O/2 Enhanced assay in the low risk population was 99.90% (6052/6058) with a 95% confidence interval of 99.78 to 99.96%. 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 MTHFR C677T carriers are not at increased risk for thrombosis in the absence of hyperhomocysteinemia. In the absence of alternative causes, heterozygous carriers of MTHFR C677T are not at increased risk for hyperhomocysteinemia. Hyperhomocysteinemia is a relatively weak risk factor for both venous thromboembolism and arterial thrombosis. The MTHFR C677T gene mutation test does not detect other causes of hyperhomocysteinemia due to acquired disorders (renal failure, zinc deficiency, leukemia, psoriasis, or antifolate drug therapy). If clinically indicated, suggest Coagulation Consultation 61936 (Thrombophila Profile) to complete the evaluation for an inherited or acquired thrombosing disorder (i.e., thrombophilia). Consider genetic consultation and counseling of potentially affected family members regarding laboratory testing. ADDITIONAL INFORMATION This test is a direct mutation analysis using PCR amplification, signal generation and release by cleavage of sequence specific alleles ([employer], [employer], [employer], [place]). This test has been modified from the principal network architect's instructions. Its performance characteristics were determined by [facility] in a manner consistent with CLIA requirements. This test has not been cleared or approved by the U.S. Food and Drug Administration. 67 RESULT: EULALIO Cloud 68 This individual DOES have the Methylenetetrahydrofolate reductase (MTHAC) W5260U gene mutation on ONE allele (heterozygous mutant). MTHAC J8254V carriers are not at increased risk for thrombosis in the absence of hyperhomocysteinemia. In the absence of alternative causes, heterozygous carriers of MTHAC K6541I are not at increased risk for hyperhomocysteinemia. Hyperhomocysteinemia is a relatively weak risk factor for both venous thromboembolism and arterial thrombosis. The MTHAC E7015V gene mutation test does not detect other causes of hyperhomocysteinemia due to acquired disorders (renal failure, zinc deficiency, leukemia, psoriasis, or antifolate drug therapy). If clinically indicated, suggest Coagulation Consultation 58739 (Thrombophila Profile) to complete the evaluation for an inherited or acquired thrombosing disorder (i.e., thrombophilia). Consider genetic consultation and counseling of potentially affected family members regarding laboratory testing. ADDITIONAL INFORMATION This test is a direct mutation analysis using PCR amplification, signal generation and release by cleavage of sequence specific alleles ([employer], [employer], [place], [place]). This test has been modified from the principal network architect's instructions. Its performance characteristics were determined by [facility] in a manner consistent with CLIA requirements. This test has not been cleared or approved by the U.S. Food and Drug Administration. 69 RESULT: EULALIO Cloud This test is a direct mutation analysis using PCR amplification, signal generation and release by cleavage of sequence specific alleles ([employer], [employer], [place], [place]). This test has been modified from the principal network architect's instructions. Its performance characteristics were determined by [facility] in a manner consistent with CLIA requirements. This test has not been cleared or approved by the U.S. Food and Drug Administration. Test Performed by: [facility] [address] [address] 70 Normal Range 180 to 914 Indeterminate Range 145 to 180 Deficient Range <145 71 ADDITIONAL INFORMATION This test was developed and its performance characteristics determined by [facility] in a manner consistent with CLIA requirements. This test has not been cleared or approved by the U.S. Food and Drug Administration. 72 ADDITIONAL INFORMATION This test was developed and its performance characteristics determined by [facility] in a manner consistent with CLIA requirements. This test has not been cleared or approved by the U.S. Food and Drug Administration. Test Performed by: [facility] [address] [address] 73 ADDITIONAL INFORMATION This test was developed and its performance characteristics determined by [facility] in a manner consistent with CLIA requirements. This test has not been cleared or approved by the U.S. Food and Drug Administration. 74 No bands detected 75 No bands detected 76 Specific serologic response to B. burgdorferi infection is not detected, but cannot rule out early infection during which low or undetectable antibody levels to B. burgdorferi may be present. If clinically indicated, a new serum specimen should be submitted in 7-14 days. ADDITIONAL INFORMATION Per CDC criteria, the Lyme IgG Immunoblot is interpreted as positive if IgG-class antibodies are detected to >=5 B. burgdorferi proteins, and the Lyme IgM Immunoblot is interpreted as positive if IgM-class antibodies are detected to >=2 B. burgdorferi proteins. Immunoblot patterns not meeting these criteria should not be interpreted as positive. Epitopes from certain B. burgdorferi proteins (e.g., p41) are conserved across other bacteria, which may lead to the detection of IgM- and/or IgG-class antibodies on the Lyme disease immunoblots in patients without Lyme disease. Immunoblot should only be ordered on specimens that are positive or equivocal by a FDA-licensed Lyme disease antibody screening test (e.g., EIA). Results of the Lyme IgM immunoblot should not be considered in patients with >=30 days of symptoms. Test Performed by: [facility] [employer] [address] [place] [address] 77 REFERENCE VALUE <4.0 (Negative) Test Performed by: [facility] [place] [address] 78 Negative serology. Celiac disease unlikely. However, approximately 10% of patients with celiac disease are seronegative. Also, patients who are already adhering to a gluten-free diet may be seronegative. If celiac disease is highly clinically suspected, consider HLA-DQ typing. Test Performed by: [facility] [address] [address] 79 RESULT: 01:02,05:01 REFERENCE VALUE Not Applicable 80 RESULT: 02:01,06:04 DQ Serologic Equivalent: 2,6 REFERENCE VALUE Not Applicable 81 These genes are permissive for celiac disease. The absence of HLA celiac permissive genes would make the presence of celiac disease unlikely. However, these genes can also be present in the normal population. ADDITIONAL INFORMATION Method: Molecular typing of HLA antigens performed using reverse SSOP and/or SSP methods, reported as serological equivalents and low to medium resolution molecular values. Performing Laboratory CLIA# [id number] Test Performed by: [address] [address] 82 Because ethnic data is not always readily available, this report includes an eGFR for both -Americans and non- Americans. The National Kidney Disease Education Program (NKDEP) does not endorse the use of the MDRD equation for patients that are not between the ages of 18 and 70, are , have extremes of body size, muscle mass, or nutritional status, or are non- or non-. According to the National Kidney Foundation, irrespective of diagnosis, the stage of the disease is based on the level of kidney function: Stage Description GFR(mL/min/1.73 m(2)) 1 Kidney damage with normal or decreased GFR 90 2 Kidney damage with mild decrease in GFR 60-89 3 Moderate decrease in GFR 30-59 4 Severe decrease in GFR 15-29 5 Kidney failure <15 (or dialysis) Procedures Date Code Description Status 10/05/2018 605876944 Diabetic Foot Exam Completed 09/07/2018 62556 SC/Im Injections Completed Encounters Type Date Location Provider Dx Diagnosis Office Visit 12/04/2018 Main Office Yaquelin Sanford, R45.851 Suicidal ideations 4:00p D.O. E11.65 Type 2 diabetes mellitus with hyperglycemia Z98.84 Bariatric surgery status G90.09 Other idiopathic peripheral autonomic neuropathy R27.9 Unspecified lack of coordination K59.00 Constipation, unspecified K66.0 Peritoneal adhesions (postprocedural) (postinfection) M54.5 Low back pain R10.30 Lower abdominal pain, unspecified K46.9 Unspecified abdominal hernia without obstruction or gangrene F41.9 Anxiety disorder, unspecified Office Visit 11/05/2018 9:40a Main Office Zeynep Guallpa, Z01.818 Encounter for other P.A. preprocedural examination H26.9 Unspecified cataract E11.65 Type 2 diabetes mellitus with hyperglycemia Z98.84 Bariatric surgery status G90.09 Other idiopathic peripheral autonomic neuropathy R27.9 Unspecified lack of coordination K59.00 Constipation, unspecified Office Visit 10/05/2018 11:30a Main Office Sanford Jamison, E11.9 Type 2 diabetes D.O. mellitus without complications Z98.84 Bariatric surgery status E11.65 Type 2 diabetes mellitus with hyperglycemia Office Visit 09/24/2018 1:15p Main Office Sanford Jamison, K46.9 Unspecified D.O. abdominal hernia without obstruction or gangrene K66.0 Peritoneal adhesions (postprocedural) (postinfection) Z98.84 Bariatric surgery status E11.65 Type 2 diabetes mellitus with hyperglycemia M54.5 Low back pain R10.30 Lower abdominal pain, unspecified G90.09 Other idiopathic peripheral autonomic neuropathy Office Visit 09/07/2018 11:00a Main Office Sanford Jamison D.O. M54.5 Low back pain R27.9 Unspecified lack of coordination E11.9 Type 2 diabetes mellitus without complications H26.9 Unspecified cataract G90.09 Other idiopathic peripheral autonomic neuropathy Z98.84 Bariatric surgery status E11.65 Type 2 diabetes mellitus with hyperglycemia D51.8 Other vitamin B12 deficiency anemias R74.8 Abnormal levels of other serum enzymes Plan of Treatment Future Appointment(s):01/03/2019 11:00 am - Sanford Jamison D.O. at Main [facility]8911/05/2018 - Nimco MonsonZ01.818 Encounter for other preprocedural examinationComments:Patient is low risk for surgery planned.they have no prior anaesthetic related complications.they are advised to inform their surgeon of any acute illness which may occur between now and surgical date. No pre operative labs were ordered.Labs from September were reviewed. Cleared for planned surgery. (Consulted with Dr. Jamison who is pt's PCP. He concurred that pt can be cleared for surgery.)H26.9 Unspecified iffsquomO65.65 Type 2 diabetes mellitus with hyperglycemiaComments:Poor control, cont f/u w dosqaiteuwdcxbeW52.84 Bariatric surgery statusComments:has recently had vitamin levels checked and these are fine. discussed that should have regular f/u, yearly, with bariatric surgeon to monitor for any nutritional deficiencies that can result for GBS.G90.09 Other idiopathic peripheral autonomic neuropathyComments:f/u w Neurologist in [place] as referred by Dr. WebbR27.9 Unspecified lack of coordinationComments:f/u w Neurologist in [place] as referred by Dr. WebbK59.00 Constipation, unspecifiedFollow up: Use mg citrate as needed if no BM in 3-4 days let me know via the portal when bowel movement in order to determine if any further measures needed
--- OUTSIDE RECORDS SUMMARY | 2018-12-04 19:33 | XMS REPORT | Continuity of Care Document ---
:1970 External Reference #:[id number] Author Name Shravan Hannon DO Address [address] [place] [address] [place] [address] Care Team Providers Name Role Phone Sanford Jamison DO Care Team Information Clinical Technician Unavailable Sanford Jamison DO Primary Care Physician Unavailable Payers Date Identification Numbers Payment Provider Subscriber Effective: 2018 Policy Number: [id number] Medicaid Taz Reynodls Expires: 2018 Group Name: 1 1 [facility] [employer] PayID: [id number] [address] [place] [address] Effective: 2018 Policy Number: [id number] [facility] Taz Reynolds PayID: [id number] [address] [place] [address] Advance Directives Description No Information Available Problems Active Problems Provider Date Morbid obesity Lino Conroy MD Onset: 11/21/2011 Irritable bowel syndrome Lino Conroy MD Onset: 11/21/2011 Type 2 diabetes mellitus Lino Conroy MD Onset: 11/21/2011 Note: on insulin -A1c 11.1 (2011) Essential hypertension Lino Conroy MD Onset: 11/21/2011 Hemorrhage of rectum and anus DREW Mackay-Gallo Onset: 04/23/2012 Anal pain DAGOBERTO Mackay Onset: 04/23/2012 Family History Description No Information Available Social History Type Date Description Comments Sex Unknown ETOH Use Denies alcohol use Tobacco Use Start: Unknown End: Unknown Patient is a former smoker Smoking Status Reviewed: 10/08/18 Patient is a former smoker Allergies, Adverse Reactions, Alerts Description No Known Drug Allergies Medications Active Medications SIG Qnty Indications Ordering Date Provider Colyte With Flavor by mouth as 4000ml Shravan Hannon DO 11/07/2018 Packs directed 240gm Solution Rec Miralax 17g mixed and 1020gm Shravan Hoguerdan, DO 10/22/2018 3350NF Powder dissolved into four to eight ounces of any beverage 2-3 times daily. Dispense as written Lantus 12 U bid Lino Ng 11/21/2011 100Unit/ML MD Rafiq Solution Humalog sliding scale Unknown Alfuzosin HCL ER Unknown 10mg Tablets ER 24HR Magnesium Unknown 250mg Tablets Zinc Unknown 50mg Tablets Oxycodone HCL every 4 hours as 90tabs Unknown 10mg needed Tablets Chantix twice a day 60tabs Unknown 1mg Tablets Lyrica take one capsule 90caps Unknown 50mg Capsules by mouth three times a day, maximum 3 per day Metformin HCL take one tablet Unknown 1000mg by mouth twice a Tablets day Lisinopril 1 by mouth every Unknown 20mg Tablets day Ergocalciferol 1 by mouth weekly 8caps Unknown 40653Hsss Capsules History Medications Simvastatin hs Lino Conroy, 11/21/2011 - 40mg Tablets 09/06/2018 Zoloft Lino Conroy, 11/21/2011 - 50mg Tablets 09/06/2018 Bystolic Lino Conroy, 11/21/2011 - 5mg Tablets 09/06/2018 Lisinopril/Hydrochlorot Lino Conroy, 11/21/2011 - hiazide 09/06/2018 20-12.5mg Tablets Docusate Sodium Unknown - 100mg 10/07/2018 Capsules Oxycodone-Acetaminophen Unknown - 10/07/2018 5-325mg Tablets Miralax use 1 capful once Unknown - Powder or twice daily for 10/22/2018 constipation. Immunizations Description No Information Available Vital Signs Date Vital Result Comment 10/08/2018 12:48pm Height 67.50 inches 5'7.50" Weight 150.00 lb BP Systolic 109 mmHg BP Diastolic 69 mmHg Heart Rate 92 /min BMI (Body Mass Index) 23.1 kg/m2 09/07/2018 2:14pm Height 67.50 inches 5'7.50" Weight [...] Test Result H/L Range Note Laboratory test 11/30/2018 [facility] Point of Care 135 mg/dL High 70-100 1 finding Glucose Laboratory test 11/30/2018 [facility] Point of Care 158 mg/dL High 70-100 2 finding Glucose Xray 09/20/2018 [facility] Radiology MRI Lumbar <pending> Spine W/Wo Laboratory test 09/13/2018 [facility] Point of Care 54 mg/dL Low 70-100 3 finding Glucose Laboratory test 09/13/2018 [facility] Point of Care 65 mg/dL Low 70-100 4 finding Glucose Urine Culture And 09/13/2018 [facility] Urine Culture SEE RESULT 5 Sensitivities BELOW Urinalysis Profile 09/13/2018 [facility] Urine Color Yellow Urine Appearance Clear Urine Specific [place] 1.021 N 1.010-1.030 Urine pH 7.0 N [...] Bacteria Absent Absent Laboratory test finding 09/13/2018 [facility] Lipase 56 U/L N 11.0-82.0 C Reactive Protein 5.83 mg/L N <8.01 Troponin-I (TnI) 0.01 ng/mL <0.04 6 Comp Metabolic Panel 09/13/2018 [facility] Sodium 136 mmol/L N 135-145 Potassium 4.5 mmol/L N 3.5-5.0 Chloride 102 [...] Egfr Non- 127.1 >60 Egfr 153.8 >60 7 Laboratory test finding 09/13/2018 [facility] Lactic Acid 1.7 mmol/L N 0.5-2.0 8 CBC Auto Diff 09/13/2018 [facility] White Blood Count 5.7 10^3/uL N 3.5-10.8 Red Blood Count 4.05 10^6/uL N 4.00-5.40 [...] Red Blood Cells % 0 Laboratory test 08/31/2018 [facility] Surgical Interface SEE RESULT 9 finding Order BELOW Xray 08/30/2018 [facility] Radiology CT, Abd & Pelvis <pending> W/ Contrast Clotest 12/13/2011 [facility] M 10 - <SEE NOTE> Surgical Pathology 12/13/2011 [facility] Surgical Pathology 11 - <SEE NOTE> 1 Break Out Worker: [id number] 2 Break Out Worker: [id number] 3 Break Out Worker: [id number] 4 Break Out Worker: [id number] 5 SEE RESULT BELOW Name: TAZ REYNOLDS : [address]: Michael Alexis MD Acct: [id number] Unit: [id number] AGE: 48 Location: [place] [address] Re09/14/18 SEX: M Status: ADM IN SPEC: [id number] JACKSON: 09/14/[address]: Farhan Pham MD REQ: [id number] RECD: 09/14/18 STATUS: COMP OTHR DR: DO Sanford Mayo DO _ SOURCE: URINE SPDESC: ORDERED: Urine Culture Procedure Result Reported Site Urine Culture Final 09/15/18- 926 ML No Growth (<1,000 CFU/mL) * ML - Main Lab . END OF REPORT DEPARTMENT OF PATHOLOGY, [address] [place] [address] Wild Alves M.D. Director [facility] # [id number] 6 Troponin-I testing on Plasma Separator Tubes (PST) has a known false positive rate of 0.20-0.40%. All positive troponins reflex immediate secondary confirmatory testing. 7 Because ethnic data is not always readily [...] 15-29 5 Kidney failure <15 (or dialysis) 8 [facility] Severe Sepsis and Septic Shock Management Bundle Measure requires all lactic acids initially measuring >2.0 mmol/L be repeated. 9 SEE RESULT BELOW Name: TAZ REYNOLDS : [address]: Teresa Vides MD Acct: [id number] Unit: [id number] AGE: 48 Location: [place] [address] Re08/30/18 Dis: 09/01/18 SEX: M Status: DIS Fatimah SPEC: [id number] JACKSON: 08/31/18-1208 [facility] DR: Shravan Hannon DO REQ: [id number] RECD: 08/31/18-0748 STATUS: SHAN MARQUIS DR: Teresa Mcclendon MD [...] 1245 END OF REPORT DEPARTMENT OF PATHOLOGY, [address] [place] [address] Wild Alves M.D. Director [facility] # [id number] RUN DATE: 12/14/11 [facility] NMI LIVE PAGE 1 RUN TIME: 726 Specimen Inquiry RUN USER: INTERFACE Name: TAZ REYNOLDS Status: REG REF Re12/13/11 Age/Sex: 41/M Unit#: [id number] Location: [facility] : [birth year] SPEC #: [id number] JACKSON: 12/13/11 STATUS: COMP REQ #: [id number] RECD: 12/13/11 [facility] DR: Lino Conroy MD SOURCE: CLOTEST ENTR: 12/13/[address]: Danelle WAGONER,Mac Jean SPDESC: Vandana Lai RN ORDERED: CLOTEST ACT WKST: MISC 12/14/11 #1 Procedure Result Verified Site > CLOTEST Final 12/14/11725 ML CLOTEST NEGATIVE - [facility] State Permit #[id number] [address] [place] [address] DEPARTMENT OF PATHOLOGY, [address] [place] [address] [facility] Permit #[id number] Sara Ac M.D. Sales Communications Manager 11 ---- RUN DATE: 12/14/11 [facility] NMI LIVE PAGE 1 RUN TIME: 1402 Specimen Inquiry RUN USER: INTERFACE -- Name: MARCARMINETAZ Status: REG REF Re12/13/11 Age/Sex: 41/M Unit#: [id number] Location: [facility]. : [birth year] -- Specimen: [id number] Spec Date:12/13/11- Dr: Lino Conroy MD Spec Type: SURGICAL P Received:12/13/11-1211 Copies to: Mac Barbosa [facility] SPECIMEN BIOPSY THICKENED FOLD THIRD PORTION DUODENUM [...] 12/14/11 1402 -- -- DEPARTMENT OF PATHOLOGY, [address] [place] [address] [facility] Permit #[id number] Wild Alves M.D. Director Ciro Hernandez M.D. [employer] Sales Consultant Dir marquisor -- Procedures Date Code Description Status 08/31/2018 71890 EGD+Biopsy Single Or Multiple Completed 12/13/2011 64796 EGD+Biopsy Single Or Multiple Completed Encounters Type Date Location Provider Dx Diagnosis Office Visit 10/08/2018 Gastroenterology Shravan Hannon, R74.0 Nonspec elev of 1:00p [facility] DO levels of transamns & lactic acid dehydrgnse K59.00 Constipation, unspecified Office Visit 09/07/2018 Gastroenterology Shravan Hannon, R74.0 Nonspec elev of 2:15p [facility] DO levels of transamns & lactic acid dehydrgnse K59.00 Constipation, unspecified K59.03 Drug induced constipation R74.8 Abnormal levels of other serum enzymes R52 Pain, unspecified M79.10 Myalgia, unspecified site Office Visit 05/07/2012 Gastroenterology Jolon 569.42 Pain Anal Or 3:15p [facility] Trace Rectal PERSONNEL SCHEDULER-C Office Visit 04/23/2012 Gastroenterology [facility]on 569.3 Hemorrhage 2:00p [facility] Trace Rectum & Anus PERSONNEL SCHEDULER-C 569.42 Pain Anal Or Rectal Office Visit 11/21/2011 1:00p Gastroenterology Lino Ng 786.50 Pain Chest [facility] MD Rafiq Unspec 278.01 Obesity Morbid 564.1 Irritable Bowel Syndrome 250.00 Diabetes Mellitus W/O Compl Type II Or Unspec Controlled Plan of Treatment Future Appointment(s):01/08/2019 2:30 pm - Shravan Hannon DO at Gastroenterology [facility]10/08/2018 - NAV Mayo74.0 Nonspecific elevation of levels of transaminase and lactic acid dehydrogenase [ LDH]New Labs:CMP(!), Ordered: 10/08/18Alkaline Phosphatase Fraction, Ordered: K59.00 Constipation, unspecified
--- OUTSIDE RECORDS SUMMARY | 2018-12-04 19:33 | XMS REPORT | Continuity of Care Document ---
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 Unavailable Sanford Jamison DO Primary Care Physician Unavailable Payers Date Identification Numbers Payment Provider Subscriber Effective: Policy Number: [id number] [employer] Taz Reynolds 2018 Medicaid PayID: [id number] [address] [address] [place] [address] Expires: 2018 Policy Number: [id number] Of Y Taz Reynolds PayID: [id number] [address] [address] [place] [address] Effective: 2018 Policy Number: [id number] Medicaid Taz Reynolds Expires: 2018 Group Name: 1 1 [address] PayID: [id number] [place] [address] Advance Directives Description No Information Available Problems Description No Information Family History Date Family Member(s) Observation Comments Father Diabetes Type II Mother Breast Cancer Mother TIA Siblings 6 diabetes, cardiac-fluid around heart, shingles, Social History Type Date Description Comments Sex Unknown Marital Status Lives With Mother 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 ETOH Use Denies alcohol use Tobacco Use Start: Unknown End: Patient is a former quit since Aug 2018 Unknown smoker Recreational Drug Use Denies Drug Use Smoking Status Reviewed: 12/04/18 Patient is a former quit since Aug 2018 smoker Exercise Type/Frequency Exercises sporadically sporatic Allergies, Adverse Reactions, Alerts Description No Known Drug Allergies Medications Active Medications SIG Qnty Indications Ordering Date Provider Basagllogan Villegasikpen 15 units at 15ml Sree Adams MD 11/28/2018 bedtime,MDD 50 100Unit/ML Solution Pen-Inject Admelog Solostar 6-12 units per 15ml Sree Adams MD 11/27/2018 meal, 1 unit for 100Unit/ML Solution every 10 grams of Pen-Inject carbs, MDD 50 Pen [place] to be used with 200unrodney Adams MD 10/17/2018 32G X 6 humalog, and lantus mm Misc dosing up to 6 times per day. Insulin use 4-6 times daily 200units E11.65 Sree Adams MD 09/06/2018 Syringe/0.5ML/31G X 16" 31G X 16" 0.5 ML Misc Chantix 1 mg twice a day Unknown 1mg Tablets Insulin 1 syringe once Unknown Syringe/0.3ML/30G X daily; substitution 12/27" okay 30G X 12/27" 0.3 ML Misc Oxycodone HCL 1 tab every 4 hours Unknown 10mg as needed Tablets Miralax take 1 packet daily Unknown [id number] as needed for Packet constipation Gabapentin 1 by mouth three Unknown 300mg times a day Capsules Morphine Sulfate ER 1 capsule three x a Unknown Beads day 60mg Caps ER 24HR Tramadol HCL 1-2 tablets by Unknown 50mg mouth every 6 hours Tablets as needed pain History Medications Humalog Kwikpen 6-12 units 15ml Sree Adams 10/17/2018 - Subcutaneously based 11/26/2018 100Unit/ML Solution on carbohydrates 1 Pen-Inject unit per 5 grams carbs. Fiasp Flextouch 6-12 units with meals 15ml E11.65 Sree Adams, 09/19/2018 - based on carbohydrate 09/24/2018 100Unit/ML Solution intake, dispense 5 Pen-Inject pens, 15ml Humalog Kwikpen 6-12 units with meals 15ml E11.65 Sree Adams, 09/06/2018 - based on 09/19/2018 100Unit/ML Solution carbohydrate, Pen-Inject dispense, 5 pens, 15ml Fiasp Flextouch 6-12 units with meals 15ml E11.65 Sree Adams, 09/06/2018 - based on carbohydrate 09/06/2018 100Unit/ML Solution intake, dispense 5 Pen-Inject pens, 15ml Lantus Solostar 18-36 units daily sc 15ml E11.65 Sree Adams, 09/06/2018 - at hour of sleep, 11/27/2018 100Unit/ML Solution dispense 15ml/month Pen-Inject Basaglar Kwikpen 15 units daily 15ml Sree Adams, 09/06/2018 - 09/06/2018 100Unit/ML Solution Pen-Inject Docusate Sodium 1 tab every 12 hours Unknown - 100mg as needed for 11/27/2018 Capsules constipation Ergocalciferol one capsule every 14caps Sree Adams, - week 12/03/2018 [id number] Capsules Oxycodone-Acetaminoph 1-2 by mouth every Unknown - en 4-6 hours as needed 09/24/2018 5-325mg Tablets for post-op pain. max 10 per day Miralax 17 grams by mouth Unknown - Powder every day as needed 09/02/2018 Lisinopril 1 by mouth every day Unknown - 20mg Tablets 11/28/2018 Metformin HCL ER 1 by mouth twice a Unknown - (Mod) day 11/26/2018 1000mg Tablets ER 24HR Lyrica 1 by mouth three Unknown - 50mg Capsules times daily 11/27/2018 Vitamin D-3 1 by mouth every day Unknown - 1000Unit 09/24/2018 Capsules Fentanyl 1 every 3 days Unknown - 75mcg/HR 11/27/2018 Patches 72HR Alfuzosin HCL ER 1 by mouth every day Unknown - 10mg 11/27/2018 Tablets ER 24HR M2 Zinc-50 1 by mouth every day Unknown - 50mg Tablets 12/03/2018 Magnesium Oxide 1 by mouth every day Unknown - 250mg 12/03/2018 Tablets Immunizations Description No Information Available Vital Signs Date Vital Result Comment 12/04/2018 9:00am Height 67 inches 5'7" Weight 145.00 lb w/ shoes Heart Rate 83 /min BP Systolic Sitting 154 mmHg BP Diastolic Sitting 103 mmHg BMI (Body Mass Index) 22.7 kg/m2 11/28/2018 9:19am Height 67 inches 5'7" Weight 147.50 lb Heart Rate 60 /min BP Systolic 100 mmHg BP Diastolic 70 mmHg BMI (Body Mass Index) 23.1 kg/m2 10/02/2018 11:31am Height 67 inches 5'7" Weight 156.50 lb Heart Rate 80 /min BP Systolic Sitting 124 mmHg reg adult cuff left arm BP Diastolic Sitting 84 mmHg reg adult cuff left arm Respiratory Rate 20 /min O2 % BldC Oximetry 98 % at rest on room air BMI (Body Mass Index) 24.5 kg/m2 09/06/2018 1:08pm Height 67 inches 5'7" Weight 156.00 lb w/ boots Heart Rate 90 /min BP Systolic Sitting 143 mmHg BP Diastolic Sitting 84 mmHg BMI (Body Mass Index) 24.4 kg/m2 Results Test Date Facility Test Result H/L Range Note Alkaline Phos [facility] Alkaline 378 U/L Abnormal 40 - 129 [employer]soen[employer] [address] [place] [address] [phone] Alp Liver 1% 49.4 % 27.8-76.3 Alp Liver 1 186.7 IU/L Abnormal 16.2-70.2 Alp Liver 2% 27.5 % Abnormal 0.0-8.0 Alp Liver 2 104.0 IU/L Abnormal 0.0-5.8 Alp Bone % 23.1 % 19.1-67.7 Alp Bone 87.3 IU/L Abnormal 12.1-42.7 Alp Intestine % 0.0 % 0.0-20.6 Alp Intestine 0.0 IU/L 0.0-11.0 Alp Placental NotPresent 1 Fecal Fat 10/20/2018 [facility] Fecal Fat, Total Weight 670 g [address] [place] [address] [phone] Fecal Fat, Collection Duration 48 h Stool Total Fat/24Hr 88 g/24h Abnormal 2 - 7 3 Laboratory test 10/05/2018 [facility] TSH (Thyroid 1.14 mcIU/mL N 0.34-5.[address] Stim Horm) [place] [address] [phone] Vitamin D Total 25(Oh) 24.9 ng/mL N 20-50 Comp Metabolic Panel 10/05/2018 [facility] Sodium 138 mmol/L N 135-145 [address] [place] [address] [phone] Potassium 5.0 mmol/L N 3.5-5.0 Chloride 99 [...] Egfr Non- 156.4 >60 Egfr 189.2 >60 4 Pthi 10/05/2018 [facility] Calcium (PTH Intact) 8.7 mg/dL N 8.6-10.[address] [place] [address] [phone] PTH Intact 3.3 pmol/L N 1.3-9.3 Laboratory test 10/05/2018 [facility] Vitamin A 48.7 g/dL 32.5-78.0 5 finding 101 (Retinol) [place] [address] [phone] Vitamin E 13.4 mg/L 5.5 - 17.0 6 Inr/Protime 10/05/2018 [facility] Inr 0.89 N 0.77-1.[address] [place] [address] [phone] Laboratory test 10/05/2018 [facility] Vitamin B12 744 pg/mL N 180-[address] [place] [address] [phone] Iron (Fe) 32 g/dL Low 50-212 CBC Auto Diff 10/05/2018 [facility] White Blood 5.2 10^3/uL N 3.5-10.[address] [place] [address] [phone] Red Blood Count 4.41 10^6/uL N 4.00-5.40 [...] % Nucleated Red Blood Cells % 0 Alkaline Phos 10/05/2018 [facility] Alkaline 363 U/L Abnormal 40 - [employer]so[employer] [address] Phosphatase [address] [place] [address] [phone] Alp Liver 1% 47.0 % 27.8-76.3 Alp Liver 1 170.6 IU/L Abnormal 16.2-70.2 Alp Liver 2% 28.5 % Abnormal 0.0-8.0 Alp Liver 2 103.5 IU/L Abnormal 0.0-5.8 Alp Bone % 24.5 % 19.1-67.7 Alp Bone 88.9 IU/L Abnormal 12.1-42.7 Alp Intestine % 0.0 % 0.0-20.6 Alp Intestine 0.0 IU/L 0.0-11.0 Alp Placental NotPresent 8 Laboratory test 09/06/2018 [facility] House Glucose Random 328 finding Laboratory test 08/31/2018 [facility] Surgical Interface SEE RESULT [address] [place] [place] [address] [phone] 1 REFERENCE VALUE Not present Test Performed by: [facility] - [address] [address] 2 COLLECTION WAS 48 HRS NOT 72 ONLY ORDER 1 PER VALERIANO RECMONIKVED 2 CONTAINERS 3 ADDITIONAL INFORMATION This test was developed and its performance characteristics determined by [facility] in a manner consistent with CLIA requirements. This test has not been cleared or approved by the U.S. Food and Drug Administration. Test Performed by: [facility] - [address] [address] 4 Because ethnic data is not always readily [...] 15-29 5 Kidney failure <15 (or dialysis) 5 ADDITIONAL INFORMATION This test was developed and its performance characteristics determined by [facility] in a manner consistent with CLIA requirements. This test has not been cleared or approved by the U.S. Food and Drug Administration. Test Performed by: [facility] Calm - [facility] [address] [place] [address] 6 ADDITIONAL INFORMATION This test was developed and its performance characteristics determined by [facility] in a manner consistent with CLIA requirements. This test has not been cleared or approved by the U.S. Food and Drug Administration. Test Performed by: [facility] - [facility] [address] [place] [address] 7 Normal Range 180 to 914 Indeterminate Range 145 to 180 Deficient Range <145 8 REFERENCE VALUE Not present Test Performed by: [facility] - [facility] [address] [place] [address] 9 SEE RESULT BELOW Name: TAZ REYNOLDS : [address]: Teresa Vides MD Acct: [id number] Unit: [id number] AGE: 48 Location: [place] [address]- Re08/30/18 Dis: 09/01/18 SEX: M Status: DIS Fatimah SPEC: [id number] [place]: 08/31/18-1208 [facility] DR: Shravan Hannon DO REQ: [id number] RECD: 08/31/183647 STATUS: SHAN MARQUIS DR: Teresa Mcclendon MD [...] 1245 END OF REPORT DEPARTMENT OF PATHOLOGY, [address] [place] [address] Wild Alves M.D. Director [facility] # [id number] Procedures Date Code Description Status 10/26/2018 512917279 Diabetic Retinal Eye Exam Completed 09/16/2018 86754 Nerve Conduction 07-08 Studies Completed 09/16/2018 37748 Needle Electromyography Each Extremity W/Related Completed Paraspinal Areas 04/24/2013 34109 EKG, Interpretation Only Completed Encounters Type Date Location Provider Dx Diagnosis Office Visit 10/02/2018 [facility] Glenn Roca Z98.84 Bariatric 11:15a Sara Webb surgery status M79.2 Neuralgia and neuritis, unspecified M62.9 Disorder of muscle, unspecified E11.9 Type 2 diabetes mellitus without complications Office Visit 09/23/2018 [facility] Araceli, R10.9 Unspecified 10:11a josh Blanchard M.D. abdominal pain Hospitalists E11.40 Type 2 diabetes mellitus with diabetic neuropathy, unsp R33.9 Retention of urine, unspecified E60 Dietary zinc deficiency E55.9 Vitamin D deficiency, unspecified R74.8 Abnormal levels of other serum enzymes Office Visit 09/22/2018 [facility] Hohn, G54.1 Lumbosacral 10:11a josh Blanchard M.D. plexus disorders Hospitalists E11.40 Type 2 diabetes mellitus with diabetic neuropathy, unsp E60 Dietary zinc deficiency R33.9 Retention of urine, unspecified Office Visit 09/21/2018 [facility] G61.9 Inflammatory 7:00a Wilma Banks MD polyneuropathy, unspecified K59.00 Constipation, unspecified Office Visit 09/21/2018 [facility] Hohn, G54.1 Lumbosacral 10:11a josh Blanchard M.D. plexus disorders Hospitalists E11.40 Type 2 diabetes mellitus with diabetic neuropathy, unsp E60 Dietary zinc deficiency R33.9 Retention of urine, unspecified Office Visit 09/20/2018 [facility] G61.9 Inflammatory 7:00a Wilma Banks MD polyneuropathy, unspecified K59.00 Constipation, unspecified Office Visit 09/20/2018 [facility] Charles G54.1 Lumbosacral 10:10a josh Blanchard M.D. plexus disorders Hospitalists E11.40 Type 2 diabetes mellitus with diabetic neuropathy, unsp E60 Dietary zinc deficiency Z98.84 Bariatric surgery status Office Visit 09/19/2018 [facility] G61.9 Inflammatory 7:00a Wilma Banks MD polyneuropathy, unspecified E60 Dietary zinc deficiency Office Visit 09/19/2018 [facility] G54.1 Lumbosacral 10:10a josh Blanchard M.D. plexus disorders Hospitalists E11.40 Type 2 diabetes mellitus with diabetic neuropathy, unsp E60 Dietary zinc deficiency R74.8 Abnormal levels of other serum enzymes Office Visit 09/18/2018 [facility] G61.9 Inflammatory 7:00a Wilma Banks MD polyneuropathy, unspecified Office Visit 09/18/2018 [facility] G54.1 Lumbosacral plexus 10:10a Assoc, Hospitalists destiney Gonzales M.D.,FACP E11.40 Type 2 diabetes mellitus with diabetic neuropathy, unsp R94.5 Abnormal results of liver function studies Z98.84 Bariatric surgery status Z79.4 [facility]PC (current) use of insulin Office Visit 09/17/2018 [facility] G61.9 Inflammatory 7:00a Wilma Banks MD polyneuropathy, unspecified Office Visit 09/17/2018 [facility] G54.1 Lumbosacral plexus 10:09a Assoc, Hospitalists destiney Gonzales M.D.,FACP E11.9 Type 2 diabetes mellitus without complications R94.5 Abnormal results of liver function studies Z98.84 Bariatric surgery status Office 09/16/2018 [facility] Roca G61.9 Inflammatory Visit 7:00a nancy Scott M.D. 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 spinal cord, unspecified Office Visit 09/14/2018 [facility] R10.9 Unspecified 10:08a Assoc, Hospitalkay Kelly M.D. abdominal pain E11.9 Type 2 diabetes mellitus without complications I10 Essential (primary) hypertension Office Visit 09/13/2018 10:08a [facility] R10.9 Unspecified Assjosh ribeiro M.D. abdominal pain Hospitalists E11.9 Type 2 diabetes mellitus without complications Office Visit 09/13/2018 7:00a [facility] Michael Maldonado86.89 Other specified Of [facility] Sara Alexis diseases of pancreas Office Visit 09/06/2018 1:40p [facility] Sree Adams, Z79.4 FPC [facility] (current) use of insulin E11.65 Type 2 diabetes mellitus with hyperglycemia E83.51 Hypocalcemia Z98.84 Bariatric surgery status Office Visit 09/01/2018 [facility] Sree Adams, E11.65 Type 2 diabetes 10:20a Endocrinology of mellitus with [facility] hyperglycemia Office Visit 09/01/2018 [facility] M54.9 Dorsalgia, 10:21a Assjosh ribeiro 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 abdominal pain Hospitalists E11.9 Type 2 diabetes mellitus without complications I10 Essential (primary) hypertension Office Visit 06/05/2015 [facility] Januszroel, E11.649 Type 2 diabetes 10:38a josh Blanchard M.D. mellitus with Hospitalists hypoglycemia without coma F32.9 Major depressive disorder, single episode, unspecified R56.9 Unspecified convulsions Office Visit 05/10/2013 [facility] 272.2 Hyperlipidemia Mixed 11:15a Assocjosh, N.PLaurie Hospitalists 250.02 Diabetes Mellitus W/O Compl Type II Or Unspec Type Uncontrol 401.9 Hypertension Unspec V45.86 Bariatric Surgery Status Office Visit 05/09/2013 11:14a [facility] 250.02 Diabetes Assoc,josh Florence, N.P. Mellitus W/O Hospitalists Compl Type II Or Unspec Type Uncontrol 272.2 Hyperlipidemia Mixed 401.9 Hypertension Unspec V45.86 Bariatric Surgery Status Office Visit 05/08/2013 11:14a [facility] 250.02 Diabetes Assoc,pc Naman, N.P. Mellitus W/O Hospitalists Compl Type II Or Unspec Type Uncontrol 272.2 Hyperlipidemia Mixed V45.86 Bariatric Surgery Status Office Visit 05/07/2013 11:13a [facility] 250.02 Diabetes Assoc,pc Veto N.P. Mellitus W/O Hospitalists Compl Type II Or Unspec Type Uncontrol 401.9 Hypertension Unspec 272.2 Hyperlipidemia Mixed V45.86 Bariatric Surgery Status Plan of Treatment Future Appointment(s):01/17/2019 9:30 am - JF Mccracken at [facility]12/04/2018 - Sree Adams MDE10.65 Type 1 diabetes mellitus with hyperglycemiaInstructions:1. Continue Basaglar 15 units. 2. Start short-acting insulin 1 unit for every 10g carbohydrates. 3. Discuss voluntary hosptialization with Dr. Jamison. 4. We will submit request for insulin pump and sensor to [employer]. 5. Return in 2-4 weeks for appointment Kerry Martin. 6. Avoid high-fat foods, okay to eat high-carb and high-protein foods.R45.851 Suicidal rxeammfnfN95.8 Other specified diseases of biliary tract
--- OUTSIDE RECORDS SUMMARY | 2018-12-04 19:33 | XMS REPORT | Continuity of Care Document ---
:1970 External Reference #:[id number] Author Name Laura Servin Care Team Providers Name Role Phone Glenn Webb MD Care Team Information Product Line Manager Unavailable Sanford Jamison DO Primary Care Physician Unavailable Payers Date Identification Numbers Payment Provider Subscriber Effective: Policy Number: [id number] [employer] Taz Reynolds 2018 Medicaid PayID: [id number] [address] [address] [place] [address] Expires: 2018 Policy Number: [id number] [place] Taz Reynolds PayID: [id number] [address] [address] [place] [address] Effective: 2018 Policy Number: [id number] Medicaid Taz Reynolds Expires: 2018 Group Name: 1 1 [address] PayID: [id number] [place] [address] Advance Directives Description No Information Available Problems Description No Information Family History Date Family Member(s) Observation Comments Father Diabetes Type II Mother Breast Cancer Mother TIA Siblings 6 diabetes, cardiac-fluid around heart, shingles, Social History Type Date Description Comments Sex Unknown Marital Status Lives With Mother 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 ETOH Use Denies alcohol use Tobacco Use Start: Unknown End: Patient is a former quit since Aug 2018 Unknown smoker Recreational Drug Use Denies Drug Use Smoking Status Reviewed: 11/28/18 Patient is a former quit since Aug 2018 smoker Exercise Type/Frequency Exercises sporadically sporatic Allergies, Adverse Reactions, Alerts Description No Known Drug Allergies Medications Active Medications SIG Qnty Indications Ordering Date Provider Admelog Solostar 6-12 units per 15ml Balbuena Coch, 11/27/2018 meal, 1 unit for MD 100Unit/ML Solution every 5 grams of Pen-Inject carbs, MDD 50 Pen [place] to be used with 200units Sree Adams, 10/17/2018 32G X 6 mm humalog, and maryann WAGONER Misc dosing up to 6 times per day. Lant Solostar 18-36 units daily 15ml E11.65 Sree Adams, 09/06/2018 sc at hour of 100Unit/ML Solution sleep, dispense Pen-Inject 15ml/month Insulin use 4-6 times daily 200units E11.65 Sree Adams, 09/06/2018 Syringe/0.5ML/31G X MD 16" 31G X 16" 0.5 ML Misc Tramadol HCL 1-2 tablets by Unknown 50mg mouth every 6 hours Tablets as needed pain Morphine Sulfate ER 1 capsule three x a Unknown Beads day 60mg Caps ER 24HR Gabapentin 1 by mouth three Unknown 300mg times a day Capsules Magnesium Oxide 1 by mouth every Unknown 250mg day Tablets M2 Zinc-50 1 by mouth every Unknown 50mg Tablets day Miralax take 1 packet daily Unknown [id number] Packet as needed for constipation Oxycodone HCL 1 tab every 4 hours Unknown 10mg as needed Tablets Insulin 1 syringe once Unknown Syringe/0.3ML/30G X daily; substitution 12/27" okay 30G X 12/27" 0.3 ML Misc Chantix 1 mg twice a day Unknown 1mg Tablets Metformin HCL ER 1 by mouth twice a Unknown (Mod) day 1000mg Tablets ER 24HR Ergocalciferol one capsule every 14caps Sree Adams, week [id number] Capsules History Medications Humalog Kwikpen 6-12 units 15ml Sree Adams MD 10/17/2018 - Subcutaneously based 11/26/2018 100Unit/ML on carbohydrates 1 Solution unit per 5 grams Pen-Inject carbs. Fiasp Flextouch 6-12 units with meals 15ml E11.65 Sree Adams MD 2018 - based on carbohydrate 09/24/2018 100Unit/ML intake, dispense 5 Solution pens, 15ml Pen-Inject Humalog Kwikpen 6-12 units with meals 15ml E11.65 Sree Adams MD 2018 - based on carbohydrate, 09/19/2018 100Unit/ML dispense, 5 pens, 15ml Solution Pen-Inject Fiasp Flextouch 6-12 units with meals 15ml E11.65 Sree Adams MD 2018 - based on carbohydrate 09/06/2018 100Unit/ML intake, dispense 5 Solution pens, 15ml Pen-Inject Basaglar Kwikpen 15 units daily 15ml Sree Adams MD 09/06/2018 - 09/06/2018 100Unit/ML Solution Pen-Inject Docusate Sodium 1 tab every 12 hours Unknown - as needed for 11/27/2018 100mg Capsules constipation Oxycodone-Acetamin 1-2 by mouth every 4-6 Unknown - ophen hours as needed for 09/24/2018 5-325mg post-op pain. max 10 Tablets per day Miralax 17 grams by mouth Unknown - Powder every day as needed 09/02/2018 Lisinopril 1 by mouth every day Unknown - 20mg 11/28/2018 Tablets Lyrica 1 by mouth three times Unknown - 50mg daily 11/27/2018 Capsules Vitamin D-3 1 by mouth every day Unknown - 09/24/2018 1000Unit Capsules Fentanyl 1 every 3 days Unknown - 75mcg/HR 11/27/2018 Patches 72HR Alfuzosin HCL ER 1 by mouth every day Unknown - 11/27/2018 10mg Tablets ER 24HR Immunizations Description No Information Available Vital Signs Date Vital Result Comment 11/28/2018 9:19am Height 67 inches 5'7" Weight [...] Test Result H/L Range Note Alkaline Phos [facility] Alkaline 378 U/L Abnormal 40 - [address] [place] [address] [phone] Alp Liver 1% 49.4 % 27.8-76.3 Alp Liver 1 186.7 IU/L Abnormal 16.2-70.2 Alp Liver 2% 27.5 % Abnormal 0.0-8.0 Alp Liver 2 104.0 IU/L Abnormal 0.0-5.8 Alp Bone % 23.1 % 19.1-67.7 Alp Bone 87.3 IU/L Abnormal 12.1-42.7 Alp Intestine % 0.0 % 0.0-20.6 Alp Intestine 0.0 IU/L 0.0-11.0 Alp Placental NotPresent 1 Fecal Fat 10/20/2018 [facility] Fecal Fat, Total Weight [address] [place] [address] [phone] Fecal Fat, Collection Duration 48 h Stool Total Fat/24Hr 88 g/24h Abnormal 2 - 7 3 Laboratory test 10/05/2018 [facility] TSH (Thyroid 1.14 mcIU/mL N 0.34-5.[address] Stim [place]) [place] [address] [phone] Vitamin D Total 25(Oh) 24.9 ng/mL N 20-50 Comp Metabolic Panel 10/05/2018 [facility] Sodium 138 mmol/L N 135-[address] [place] [address] [phone] Potassium 5.0 mmol/L N 3.5-5.0 Chloride 99 [...] >60 Egfr 189.2 >60 4 Pthi 10/05/2018 [facility] Calcium (PTH Intact) 8.7 mg/dL N 8.6-10.[address] [place] [address] [phone] PTH Intact 3.3 pmol/L N 1.3-9.3 Laboratory test 10/05/2018 [facility] Vitamin A 48.7 g/dL 32.5-78.0 5 finding 101 (Retin[place]) [place] [address] [phone] Vitamin E 13.4 mg/L 5.5 - 17.0 6 Inr/Protime 10/05/2018 [facility] Inr 0.89 N 0.77-1.[address] [place] [address] [phone] Laboratory test 10/05/2018 [facility] Vitamin B12 744 pg/mL N 180-[address] [place] [address] [phone] Iron (Fe) 32 g/dL Low 50-212 CBC Auto Diff 10/05/2018 [facility] White Blood 5.2 10^3/uL N 3.5-10.[address] [place] [address] [phone] Red Blood Count 4.41 10^6/uL N 4.00-5.40 [...] Blood Cells % 0 Alkaline Phos 10/05/2018 [facility] Alkaline 363 U/L Abnormal 40 - Isoenzymes [address] Phosphatase [address] [place] [address] [phone] Alp Liver 1% 47.0 % 27.8-76.3 Alp Liver 1 170.6 IU/L Abnormal 16.2-70.2 Alp Liver 2% 28.5 % Abnormal 0.0-8.0 Alp Liver 2 103.5 IU/L Abnormal 0.0-5.8 Alp Bone % 24.5 % 19.1-67.7 Alp Bone 88.9 IU/L Abnormal 12.1-42.7 Alp Intestine % 0.0 % 0.0-20.6 Alp Intestine 0.0 IU/L 0.0-11.0 Alp Placental NotPresent 8 Laboratory test 09/06/2018 [employer] [facility] In House Glucose Random 328 finding Laboratory test 08/31/2018 [facility] Surgical Interface SEE RESULT [address] [place] [address] [phone] 1 REFERENCE VALUE Not present Test Performed by: [facility] - [facility] [address] [place] [address] 2 COLLECTION WAS 48 HRS NOT 72 ONLY ORDER 1 PER VALERIANO CARD 2 CONTAINERS 3 ADDITIONAL INFORMATION This test was developed and its performance characteristics determined by [facility] in a manner consistent with CLIA requirements. This test has not been cleared or approved by the U.S. Food and Drug Administration. Test Performed by: [facility] - [address] [address] 4 Because ethnic data is not always [...] developed and its performance characteristics determined by [facility] in a manner consistent with CLIA requirements. This test has not been cleared or approved by the U.S. Food and Drug Administration. Test Performed by: [facility] - [address] [address] 6 ADDITIONAL INFORMATION This test was developed and its performance characteristics determined by [facility] in a manner consistent with CLIA requirements. This test has not been cleared or approved by the U.S. Food and Drug Administration. Test Performed by: [facility] - [address] [address] 7 Normal Range 180 to 914 Indeterminate Range 145 to 180 Deficient Range <145 8 REFERENCE VALUE Not present Test Performed by: [facility] [address] [facility], [place] [address] 9 SEE RESULT BELOW Name: TAZ REYNOLDS : [address]: Teresa Vides MD Acct: [id number] Unit: [id number] AGE: 48 Location: [place] [address]- Re08/30/18 Dis: 09/01/18 SEX: M Status: DIS Fatimah SPEC: [id number] JACKSON: 08/31/18-[address] [facility] [address]: Shravan Hannon DO REQ: [id number] RECD: 08/31/183030 STATUS: SHAN MARQUIS DR: Teresa Mcclendon MD [...] 1245 END OF REPORT DEPARTMENT OF PATHOLOGY, [address] [place] [address] Wild Alves M.D. Director [facility] # [id number] Procedures Date Code Description Status 10/26/2018 147205189 Diabetic Retinal Eye Exam Completed 09/16/2018 76987 Nerve Conduction 07-08 Studies Completed 09/16/2018 71813 Needle Electromyography Each Extremity W/Related Completed Paraspinal Areas 04/24/2013 92384 EKG, Interpretation Only Completed Encounters Type Date Location Provider Dx Diagnosis Office Visit 10/02/2018 [facility] Glenn Roca Z98.84 Bariatric 11:15a Sara Webb surgery status M79.2 Neuralgia and neuritis, unspecified M62.9 Disorder of muscle, unspecified E11.9 Type 2 diabetes mellitus without complications Office Visit 09/23/2018 [facility] [place] Charles, R10.9 Unspecified 10:11a Assjosh ribeiro M.D. abdominal pain Hospitalists E11.40 Type 2 diabetes mellitus with diabetic neuropathy, unsp R33.9 Retention of urine, unspecified E60 Dietary zinc deficiency E55.9 Vitamin D deficiency, unspecified R74.8 Abnormal levels of other serum enzymes Office Visit 09/22/2018 [facility] [place] Araceli, G54.1 Lumbosacral 10:11a Assocjosh M.D. 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 plexus disorders Hospitalists E11.40 Type 2 diabetes mellitus with diabetic neuropathy, unsp E60 Dietary zinc deficiency R33.9 Retention of urine, unspecified Office Visit 09/20/2018 [facility] Stefany G61.9 Inflammatory 7:00a Wilma Banks MD polyneuropathy, unspecified K59.00 Constipation, unspecified Office Visit 09/20/2018 [facility] [place] Hohn, G54.1 Lumbosacral 10:10a Assocjosh M.D. plexus disorders Hospitalists E11.40 Type 2 diabetes mellitus with diabetic neuropathy, unsp E60 Dietary zinc deficiency Z98.84 Bariatric surgery status Office Visit 09/19/2018 [facility] G61.9 Inflammatory 7:00a Wilma Banks MD polyneuropathy, unspecified E60 Dietary zinc deficiency Office Visit 09/19/2018 [facility] [place] Hohn, G54.1 Lumbosacral 10:10a Assocjosh M.D. plexus disorders Hospitalists E11.40 Type 2 diabetes mellitus with diabetic neuropathy, unsp E60 Dietary zinc deficiency R74.8 Abnormal levels of other serum enzymes Office Visit 09/18/2018 [facility] Fahed G61.9 Inflammatory 7:00a Wilma Banks MD polyneuropathy, unspecified Office Visit 09/18/2018 [facility] Shashank G54.1 Lumbosacral plexus 10:10a Assoc,pc Hospitalists destiney Gonzales M.D.,FACP E11.40 Type 2 diabetes mellitus with diabetic neuropathy, unsp R94.5 Abnormal results of liver function studies Z98.84 Bariatric surgery status Z79.4 jail (current) use of insulin Office Visit 09/17/2018 [facility] Stef[facility] G61.9 Inflammatory 7:00a Wilma Banks MD polyneuropathy, unspecified Office Visit 09/17/2018 [facility] Shashank G54.1 Lumbosacral plexus 10:09a Assoc, Hospitalists destiney Gonzales M.D.,FACP E11.9 Type 2 diabetes mellitus without complications R94.5 Abnormal results of liver function studies Z98.84 Bariatric surgery status Office 09/16/2018 [facility] Glenn Roca G61.9 Inflammatory Visit 7:00a nancy Scott M.D. 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 spinal cord, unspecified Office Visit 09/14/2018 [facility] Teresa R10.9 Unspecified 10:08a Assoc Maurice Kelly M.D. abdominal pain E11.9 Type 2 diabetes mellitus without complications I10 Essential (primary) hypertension Office Visit 09/13/2018 10:08a [facility] Teresa R10.9 Unspecified josh Blanchard M.D. abdominal pain Hospitalists E11.9 Type 2 diabetes mellitus without complications Office Visit 09/13/2018 7:00a [facility] Michael Jean K86.89 Other specified Of Kendall Alexis M.D. diseases of pancreas Office Visit 09/06/2018 1:40p [facility] Sree Adams, Z79.4 jail Endocrin[facility] of [employer] [facility] MD (current) use of insulin E11.65 Type 2 diabetes mellitus with hyperglycemia E83.51 Hypocalcemia Z98.84 Bariatric surgery status Office Visit 09/01/2018 [facility] Balbuena Coch, E11.65 Type 2 diabetes 10:20a Endocrinology of MD mellitus with [facility] hyperglycemia Office Visit 09/01/2018 [facility] Marley M54.9 Dorsalgia, 10:21a Assoc,pc Allan, MANAGER CATEGORY unspecified Hospitalists R10.9 Unspecified abdominal pain E11.9 Type 2 diabetes mellitus without complications I10 Essential (primary) hypertension R74.0 Nonspec elev of levels of transamns & lactic acid dehydrgnse Office Visit 08/30/2018 10:21a [facility] Teresa R10.9 Unspecified Assocjosh M.D. abdominal pain Hospitalists E11.9 Type 2 diabetes mellitus without complications I10 Essential (primary) hypertension Office Visit 06/05/2015 [facility] John Chand, E11.649 Type 2 diabetes 10:38a Assjosh ribeiro M.D. mellitus with Hospitalists hypoglycemia without coma F32.9 Major depressive disorder, single episode, unspecified R56.9 Unspecified convulsions Office Visit 05/10/2013 [facility] Marcos 272.2 Hyperlipidemia Mixed 11:15a Assoc,pc Naman, N.P. Hospitalists 250.02 Diabetes Mellitus W/O Compl Type II Or Unspec Type Uncontrol 401.9 Hypertension Unspec V45.86 Bariatric Surgery Status Office Visit 05/09/2013 11:14a [facility] Marcos 250.02 Diabetes Assoc,josh Florence, N.P. Mellitus W/O Hospitalists Compl Type II Or Unspec Type Uncontrol 272.2 Hyperlipidemia Mixed 401.9 Hypertension Unspec V45.86 Bariatric Surgery Status Office Visit 05/08/2013 11:14a [facility] Marcos 250.02 Diabetes Assoc,pc Naman, N.P. Mellitus W/O Hospitalists Compl Type II Or Unspec Type Uncontrol 272.2 Hyperlipidemia Mixed V45.86 Bariatric Surgery Status Office Visit 05/07/2013 11:13a [facility] Guero 250.02 Diabetes Assoc,josh Laws N.P. Mellitus W/O Hospitalists Compl Type II Or Unspec Type Uncontrol 401.9 Hypertension Unspec 272.2 Hyperlipidemia Mixed V45.86 Bariatric Surgery Status Plan of Treatment 11/28/2018 - John Ivy, NPE11.42 Type 2 diabetes mellitus with diabetic polyneuropathyFollow up:PRNRecommendations:Continue to follow up with Pain Management.
--- OUTSIDE RECORDS SUMMARY | 2018-12-04 19:33 | XMS REPORT | Continuity of Care Document ---
:1970 External Reference #:[id number] Author Name Shravan Hannon DO Address [address] [place] [address] [place] [address] Care Team Providers Name Role Phone Sanford Jamison DO Care Team Information Cheese Supervisor Unavailable Sanford Jamison DO Primary Care Physician Unavailable Payers Date Identification Numbers Payment Provider Subscriber Effective: 2018 Policy Number: [id number] Medicaid Taz Reynolsd Expires: 2018 Group Name: 1 1 [facility] [employer] PayID: [id number] [address] [place] [address] Effective: 2018 Policy Number: [id number] [facility] Taz Reynolds PayID: [id number] [address] [place] [address] Advance Directives Description No Information Available Problems [...] Ergocalciferol 1 by mouth weekly 8caps Unknown [id number] Capsules History Medications Simvastatin hs Lino Conroy, [...] Result H/L Range Note Laboratory test 11/30/2018 [facility] Point of Care 135 mg/dL High 70-100 1 finding Glucose Laboratory test 11/30/2018 [facility] Point of Care 158 mg/dL High 70-100 2 finding Glucose Xray 09/20/2018 [facility] Radiology MRI Lumbar <pending> Spine W/Wo Laboratory test 09/13/2018 [facility] Point of Care 54 mg/dL Low 70-100 3 finding Glucose Laboratory test 09/13/2018 [facility] Point of Care 65 mg/dL Low 70-100 4 finding Glucose Urine Culture And 09/13/2018 [facility] Urine Culture SEE RESULT 5 Sensitivities BELOW Urinalysis Profile 09/13/2018 [facility] Urine Color Yellow Urine Appearance Clear Urine Specific [place] 1.021 N 1.010-1.030 Urine pH 7.0 N [...] Bacteria Absent Absent Laboratory test finding 09/13/2018 [facility] Lipase 56 U/L N 11.0-82.0 C Reactive Protein 5.83 mg/L N <8.01 Troponin-I (TnI) 0.01 ng/mL <0.04 6 Comp Metabolic Panel 09/13/2018 [facility] Sodium 136 mmol/L N 135-145 Potassium [...] 153.8 >60 7 Laboratory test finding 09/13/2018 [facility] Lactic Acid 1.7 mmol/L N 0.5-2.0 8 CBC Auto Diff 09/13/2018 [facility] White Blood Count 5.7 10^3/uL N [...] Blood Cells % 0 Laboratory test 08/31/2018 [facility] Surgical Interface SEE RESULT 9 finding Order BELOW Xray 08/30/2018 [facility] Radiology CT, Abd & Pelvis <pending> W/ Contrast Clotest 12/13/2011 [facility] M 10 - <SEE NOTE> Surgical Pathology 12/13/2011 [facility] Surgical Pathology 11 - <SEE NOTE> 1 Supportive Employment Case Manager: [id number] 2 Supportive Employment Case Manager: [id number] 3 Supportive Employment Case Manager: [id number] 4 Supportive Employment Case Manager: [id number] 5 SEE RESULT BELOW Name: TAZ REYNOLDS : [address]: Michael Alexis MD Acct: [id number] Unit: [id number] AGE: 48 Location: [place] [address] Re09/14/18 SEX: M Status: ADM IN SPEC: [id number] JACKSON: 09/14/[address]: Farhan Pham MD REQ: [id number] RECD: 09/14/18 STATUS: COMP OTHR DR: DO Sanford Mayo DO _ SOURCE: URINE SPDESC: ORDERED: Urine Culture Procedure Result Reported Site Urine Culture Final 09/15/18- 926 ML No Growth (<1,000 CFU/mL) * ML - Main Lab . END OF REPORT DEPARTMENT OF PATHOLOGY, [address] [place] [address] Wild Alves M.D. Director [facility] # [id number] 6 Troponin-I testing on Plasma Separator Tubes [...] 5 Kidney failure <15 (or dialysis) 8 [facility] Severe Sepsis and Septic Shock Management Bundle Measure requires all lactic acids initially measuring >2.0 mmol/L be repeated. 9 SEE RESULT BELOW Name: TAZ REYNOLDS : [address]: Teresa Vides MD Acct: [id number] Unit: [id number] AGE: 48 Location: [place] [address] Re08/30/18 Dis: 09/01/18 SEX: M Status: DIS Fatimah SPEC: [id number] JACKSON: 08/31/18-12[address] [facility] [address]: Shravan Hannon DO REQ: [id number] RECD: 08/31/18-6678 STATUS: SHAN MARQUIS DR: Teresa Mcclendon MD [...] 1245 END OF REPORT DEPARTMENT OF PATHOLOGY, [address] [place] [address] Wild Alves M.D. Director [facility]IM[facility] # [id number] 10 RUN DATE: 12/14/11 [facility] NMI LIVE PAGE 1 RUN TIME: 726 Specimen Inquiry RUN USER: INTERFACE Name: TAZ REYNOLDS Status: REG REF Re12/13/11 Age/Sex: 41/M Unit#: [id number] Location: [facility] : 72 SPEC #: [id number] JACKSON: 12/13/11 STATUS: COMP REQ #: [id number] RECD: 12/13/[address] [facility] [address]: Lino Conroy MD SOURCE: CLOTEST ENTR: 12/13/[address]: Danelle WAGONER,Mac Jean SPDESC: Vandana Lai RN ORDERED: CLOTEST ACT WKST: MISC 12/14/11 #1 Procedure Result Verified Site > CLOTEST Final 12/14/11725 ML CLOTEST NEGATIVE - [facility] State Permit #[id number] [address] [place] [address] DEPARTMENT OF PATHOLOGY, [address] [place] [address] [facility] Permit #[id number] Sara Ac M.D. Review Engineer 11 ---- RUN DATE: 12/14/11 [facility] NMI LIVE PAGE 1 RUN TIME: 1402 Specimen Inquiry RUN USER: INTERFACE -- Name: MARCARMINETAZ Status: REG REF Re12/13/11 Age/Sex: 41/M Unit#: [id number] Location: [facility]. : [birth year] -- Specimen: [id number] SOUT Spec Date:12/13/11- Dr: Lino Conroy MD Spec Type: SURGICAL P Received:12/13/11-1211 Copies to: Mac Barbosa [facility] SPECIMEN BIOPSY THICKENED FOLD THIRD [...] 12/14/11 1402 -- -- DEPARTMENT OF PATHOLOGY, [address] [place] [address] [facility] Permit #[id number] Wild Alves M.D. Director Ciro Hernandez M.D. Farm Appraiser Dir marquisor -- Procedures Date Code Description Status 08/31/2018 53777 EGD+Biopsy Single Or Multiple Completed 12/13/2011 02134 EGD+Biopsy Single Or Multiple Completed Encounters Type Date Location Provider Dx Diagnosis Office Visit 10/08/2018 [facility]enter[facility] Shravan Hannon, R74.0 Nonspec elev of 1:00p [facility] DO levels of transamns & lactic acid dehydrgnse K59.00 Constipation, unspecified Office Visit 09/07/2018 [facility] Shravan Hannon, R74.0 Nonspec elev of 2:15p [facility] DO levels of transamns & lactic acid dehydrgnse K59.00 Constipation, unspecified K59.03 Drug induced constipation R74.8 Abnormal levels of other serum enzymes R52 Pain, unspecified M79.10 Myalgia, unspecified site Office Visit 05/07/2012 [facility] [place] 569.42 Pain Anal Or 3:15p [facility] Trace Rectal IMPORT MANAGER-C Office Visit 04/23/2012 [facility] [place] 569.3 Hemorrhage 2:00p [facility] Trace Rectum & Anus IMPORT MANAGER-C 569.42 Pain Anal Or Rectal Office Visit 11/21/2011 1:00p [facility] Lino Ng 786.50 Pain Chest [facility] MD Rafiq Unspec 278.01 Obesity Morbid 564.1 Irritable Bowel Syndrome 250.00 Diabetes Mellitus W/O Compl Type II Or Unspec Controlled Plan of Treatment Future Appointment(s):01/08/2019 2:30 pm - Shravan Hannon DO at Gastroenter[facility]10/08/2018 - NAV Mayo74.0 Nonspecific elevation of levels of transaminase and lactic acid dehydrogenase [ LDH]New Labs:CMP(!), Ordered: 10/08/18Alkaline Phosphatase Fraction, Ordered: K59.00 Constipation, unspecified
--- OUTSIDE RECORDS SUMMARY | 2018-12-04 19:34 | XMS REPORT | Continuity of Care Document ---
:1970 External Reference #:[id number] Author Name Sanford Jamison D.O. Address [address] [place] [address] Care Team Providers Name Role Phone HCP given Primary Care Physician Unavailable Payers Date Identification Numbers Payment Provider Subscriber Policy Number: [id number] Medicaid Taz Reynolds PayID: [id number] [address] [place] [address] Advance Directives Description No Information Available Problems Date Description Provider Status Onset: 09/07/2018 Type 2 diabetes mellitus Sanford Jamison D.O. Active Onset: 09/24/2018 Peritoneal adhesion Sanford Jamison D.O. Active Onset: 09/24/2018 Type II diabetes mellitus uncontrolled Sanford Jamison D.O. Active Onset: 09/24/2018 Low back pain Sanford Jamison D.O. Active Onset: 09/24/2018 Abdominal pain Sanford Jamison D.O. Active Onset: 09/24/2018 Bariatric surgery status Sanford Jamison D.O. Active Onset: 09/24/2018 Other idiopathic peripheral autonomic Sanford Jamison D.O. Active neuropathy Family History Description No Information Available Social History Type Date Description Comments Sex Unknown Marital Status Lives With Parents Work Status Not Currently Working due to medical issues Hand Dominance 11/05/2018 Right-handed Tobacco Use Start: Unknown End: Former Cigarette Smoker 1/2 PPD, started 15 Unknown y/o and ended 07/2018 Tobacco Use Start: Unknown End: Patient is a former smoker Unknown Smoking Status Reviewed: 11/05/18 Patient is a former smoker Allergies, Adverse Reactions, Alerts Description No Known Drug Allergies Medications Medication Date Status Form Strength Qnty SIG Indications Ordering Provider Tramadol HCL 11/02/ Active Tablets 50mg Take 1 Tablet Unknown 2018 By Mouth Three Times Daily as Needed For Breakthrough Pain Between Oxycodone Doses -- Maximum Daily Dose Of 3 Per Day Metanx 10/19/ Active Capsules 3-90.314- 180ca 1 by mouth [facility], 2018 2-35mg ps twice a day Sanford D.O. Zinc 10/04/ Active Tablets 50mg 1 by mouth Unknown 2018 every day Magnesium 10/04/ Active daily [facility], 2018 Sanford, D.O. Fentanyl 09/23/ Active Patches 75mcg/HR 10uni apply 1 patch [facility]2018 72HR ts to skin every Sanford, 3 days remove D.O. previous patch. post op continuation of pain Polyethylene 09/23/ Active Packet 3350NF 1-2 capful in Unknown Glycol 3350 2018 8 oz of water by mouth daily for constipation Calcium Chew 09/23/ Active 3 po daily Unknown 2018 Lantus 09/06/ Active Solution 100Unit/M inject 12 Unknown 2019 L units daily Humalog 09/06/ Active Solution 100Unit/M 90ml 1unit per 10 Unknown Kwikpen 2019 Pen-Inject L carbs Metformin HCL 09/06/ Active Tablets 1000mg 180ta take one 2018 bs tablet by Sanford, mouth twice a D.O. day Vitamin D3 09/06/ Active Tablets [id number] 1 tab by Unknown Ultra Potency 2018 mouth 1 time a week for vitamin d deficiency Lyrica / Active Capsules 50mg 1 three times Unknown 0000 a day Chantix / Active Tablets 1mg 1 pill twice Unknown 0000 daily to help quit smoking Oxycodone HCL / Active Tablets 10mg 1 by mouth [place], 0000 every 4 hours Spencer, as needed for MD pain. L-Methylfolate 10/05/ Hx Capsules 3-90.314- 180ca 1 by mouth Yaquelin, -[id number] 2019 - 2-35mg ps twice a day Sanford, 10/19/ D.O. 2019 Lisinopril 10/04/ Hx Tablets 10mg 180ta 1 by mouth I10 [place], 2018 - bs twice daily Sanford, 10/30/ D.O. 2018 Alfuzosin HCL 10/04/ Hx Tablets ER 10mg 1 tablet Unknown ER 2018 - 24HR daily, for 2019 prostate Metanx 09/24/ Hx Capsules 3-90.314- 180ca 1 by mouth [place], 2018 - 2-35mg ps twice a day Sanford, 10/05/ D.O. 2019 Oxycodone HCL 09/23/ Hx Capsules 5mg 168ca take 2 [place], 2018 - ps capsule by Sanford, 10/05/ mouth every 4 D.O. 2019 hours as needed for pain Metanx 09/13/ Hx Capsules 3-90.314- 180ca 1 by mouth [place], 2018 - 2-35mg ps twice a day Sanford, 09/13/ D.O. 2019 Lisinopril 09/06/ Hx Tablets 20mg take one Unknown 2019 - tablet by 10/05/ mouth every 2019 day for high blood pressure Percocet 09/06/ Hx Tablets 5-325mg 180ta 1 tab every 4 G89.4 [place], 2019 - bs hours as Sanford, 09/23/ needed D.O. 2018 Medications Administered in Office Medication Date Status Form Strength Qnty SIG Indications Ordering Provider B12 Injection Administered Injection [place], 019 Sanford, D.O. SC/Im Administered Injection [place], Injections 019 Sanford, D.O. Immunizations CPT Code Status Date Vaccine Lot # [id number] Given 07/01/2016 Td(Adult),Unspecified Vital Signs Date Vital Result Comment 11/05/2018 10:08am BP Systolic 118 mmHg BP [...] Date Facility Test Result H/L Range Note Inr/Protime 10/05/2018 [facility] Inr 0.89 N 0.77-1.02 [phone] CBC Auto Diff 10/05/2018 [facility] White Blood 5.2 10^3/uL N 3.5- 10.8 [phone] Count Red Blood Count 4.41 10^6/uL N 4.00-5.40 [...] % Nucleated Red Blood Cells % 0 Comp Metabolic Panel 10/05/2018 [facility] Sodium 138 mmol/L N 135- 145 [phone] Potassium 5.0 mmol/L N 3.5-5.0 Chloride 99 [...] Egfr Non- 156.4 >60 Egfr 189.2 >60 1 Laboratory test finding 10/05/2018 [facility] Iron (Fe) 32 g/dL Low 50-212 [phone] TSH (Thyroid Stim Horm) 1.14 mcIU/mL N 0.34-5.60 Vitamin B12 744 pg/mL N 180-914 2 Vitamin D Total 25(Oh) 24.9 ng/mL N 20-50 Pthi 10/05/2018 [facility] Calcium (PTH Intact) 8.7 mg/dL N 8.6-10.3 [phone] PTH Intact 3.3 pmol/L N 1.3-9.3 Laboratory test 10/05/2018 [facility] Vitamin A 48.7 g/dL 32.5- 78.0 3 finding [phone] (Retinol) Vitamin E 10/05/2018 [facility] Vitamin E 13.4 mg/L 5.5 - 17.0 4 [phone] Laboratory test 10/05/2018 [facility] Vitamin A 48.7 g/dL 32.5- 78.0 5 finding [phone] (Retinol) Vitamin E 13.4 mg/L 5.5 - 17.0 6 Alkaline Phos 10/05/2018 [facility] Alkaline 363 U/L Abnormal 40 - 129 Isoenzymes [phone] Phosphatase Alp Liver 1% 47.0 % 27.8-76.3 Alp Liver 1 170.6 IU/L Abnormal 16.2-70.2 Alp Liver 2% 28.5 % Abnormal 0.0-8.0 Alp Liver 2 103.5 IU/L Abnormal 0.0-5.8 Alp Bone % 24.5 % 19.1-67.7 Alp Bone 88.9 IU/L Abnormal 12.1-42.7 Alp Intestine % 0.0 % 0.0-20.6 Alp Intestine 0.0 IU/L 0.0-11.0 Alp Placental NotPresent 7 Laboratory test finding 10/05/2018 In House Hemoglobin A1c 8.7 Fentanyl Confirmation 09/27/2018 [facility] Norfentanyl Level 546.2 ng/ mL 8 Urine [phone] Fentanyl Level 39.2 ng/mL 9 Fentanyl Interp Positive. 10 Drug Abuse 20 Urine 09/27/2018 [facility] Urine Amphetamine Negative ng /mL 11 [phone] Urine Barbiturates Negative ng/mL 12 Urine Benzodiazepines Negative ng/mL 13 Urine Cocaine Negative ng/mL 14 Urine Phencyclidine Negative ng/mL Cutoff: 25 Urine Tetrahydrocannabinol Negative ng/mL Cutoff: 50 15 Creatinine, Urine 246.4 mg/dL Specific Leonardo 1.022 pH 5.8 Oxidants Negative 16 Adulterants Comment Normal Codeine, Ur Not Detected ng/mL Cutoff: 25 17 Rwgtbpk-4-pmjx-glucuronide, Ur Not Detected ng/mL 18 Morphine, Ur Not Detected ng/mL Cutoff: 25 19 Zjbfdybt-1-ilei-glucuronide, U Not Detected ng/mL 20 6-monoacetylmorphine, Ur Not Detected ng/mL Cutoff: 25 21 Hydrocodone, Ur Not Detected ng/mL Cutoff: 25 22 Norhydrocodone, Ur Not Detected ng/mL Cutoff: 25 23 Dihydrocodeine, Ur Not Detected ng/mL Cutoff: 25 24 Hydromorphone, Ur Not Detected ng/mL Cutoff: 25 25 Gvmazazzwxijc0olrqaajvonmoumi Not Detected ng/mL 26 Oxycodone, Ur Present ng/mL Abnormal Cutoff: 25 27 Noroxycodone, Ur Present ng/mL Abnormal Cutoff: 25 28 Oxymorphone, Ur Not Detected ng/mL Cutoff: 25 29 Sauoumcbois-0-cemq-glucuronide Present ng/mL Abnormal 30 Noroxymorphone, Ur Present ng/mL Abnormal Cutoff: 25 31 Fentanyl, Ur Present ng/mL Abnormal Cutoff: 2 32 Norfentanyl, Ur Present ng/mL Abnormal Cutoff: 2 33 Meperidine, Ur Not Detected ng/mL Cutoff: 25 34 Normeperidine, Ur Not Detected ng/mL Cutoff: 25 35 Naloxone, Ur Not Detected ng/mL Cutoff: 25 36 Nudlrzjr-2-viyx-glucuronide, U Not Detected ng/mL 37 Methadone, Ur Not Detected ng/mL Cutoff: 25 38 Eddp, Ur Not Detected ng/mL Cutoff: 25 39 Propoxyphene, Ur Not Detected ng/mL Cutoff: 25 40 Norpropoxyphene, Ur Not Detected ng/mL Cutoff: 25 41 Tramadol, Ur Not Detected ng/mL Cutoff: 25 42 O-desmethyltramadol, Ur Not Detected ng/mL Cutoff: 25 43 Tapentadol, Ur Not Detected ng/mL Cutoff: 25 44 N-desmethyltapentadol, Ur Not Detected ng/mL Cutoff: 50 45 Ttzwdbykos-nvml-obeohlwmmxs, U Not Detected ng/mL 46 Buprenorphine, Ur Not Detected ng/mL Cutoff: 5 47 Norbuprenorphine, Ur Not Detected ng/mL Cutoff: 5 48 Norbuprenorphine glucuronide Not Detected ng/mL Cutoff: 20 49 Opioid Interpretation See Comment 50 Urine Culture And 09/13/2018 [facility] Urine Culture SEE RESULT 51 Sensitivities [phone] BELOW Urinalysis Profile 09/13/2018 [facility] Urine Color Yellow [phone] Urine Appearance Clear Urine Specific Leonardo 1.021 N 1.010-1.030 Urine pH 7.0 N [...] Bacteria Absent Absent Laboratory test finding 09/13/2018 [facility] Lipase 56 U/L N 11.0- 82.0 [phone] C Reactive Protein 5.83 mg/L N <8.01 Troponin-I (TnI) 0.01 ng/mL <0.04 52 Comp Metabolic Panel 09/13/2018 [facility] Sodium 136 mmol/L N 135- 145 [phone] Potassium 4.5 mmol/L N 3.5-5.0 Chloride 102 [...] Egfr Non- 127.1 >60 Egfr 153.8 >60 53 Laboratory test 09/13/2018 [facility] Lactic Acid 1.7 mmol/L N 0.5- 2.0 54 finding [phone] CBC Auto Diff 09/13/2018 [facility] White Blood 5.7 10^3/uL N 3.5- 10.8 [phone] Count Red Blood Count 4.05 10^6/uL N [...] Blood Cells % 0 Laboratory test 09/13/2018 [facility] Point of Care 65 mg/dL Low 70- 100 55 finding [phone] Glucose Laboratory test 09/13/2018 [facility] Point of Care 54 mg/dL Low 70- 100 56 finding [phone] Glucose West Nile Igg And 09/07/2018 [facility] West Nile Virus Negative Negative Igm [phone] IgG West Nile Virus IgM Negative Negative West Nile Serum Interpretation See Comment 57 Laboratory test 09/07/2018 [facility] Syphillis Igg Nonreactive Nonreactive 58 finding [phone] W/Reflex RPR Blood Culture SEE RESULT BELOW 59 HIV 1/2 AB 09/07/2018 [facility] HIV 1 2 Nonreactive Nonreactive 60 Evaluation [phone] Antibody MTHFR 09/07/2018 [facility] MTHFR Heterozygous Abnormal Negative Mutation [phone] C677T Detection Mutation MTHFR Interpretation See Comment 61 MTHFR Reviewed By See Comment 62 MTHFR L9733l Mutation Heterozygous Abnormal Negative Mthac Interpretation See Comment 63 Mthac Reviewed By See Comment 64 Laboratory test 09/07/2018 [facility] Vitamin B12 743 pg/mL N 180- 475 65 finding [phone] Tick-Borne Panel 09/07/2018 [facility] Babesia microti Negative Negative PCR Blood [phone] PCR Babesia ducani Negative Negative Babesia divergens/Mo-1 Negative Negative 66 Anaplasma phagocytophilum Negative Negative Ehrlichia chaffeensis Negative Negative Ehrlichia ewingii/canis Negative Negative B. miyamotoi PCR, B Negative Negative 67 Ehrlichia muris eauclairensis Negative Negative 68 Lyme Western Blot 09/07/2018 [facility] Lyme Disease IgG Negative Negative [phone] Ab WB Lyme Disease IgG Bands Present No bands detecte <SEE NOTE> kDa 69 Lyme Disease IgM Ab WB Negative Negative Lyme Disease IgM Bands Present No bands detecte <SEE NOTE> kDa 70 Lyme Disease Interpretation See Comment 71 Celiac Panel 09/07/2018 [facility] Tissue Transglutaminase IgA <1.2 U/ mL 72 [phone] Ab Immunoglobulin A 190 mg/dL 61 - 356 Celiac Interpretation See Comment 73 Celiac Hla 09/07/2018 [facility] Hla-Dqa1 SEE BELOW 74 [phone] Hla-DQB1 SEE BELOW 75 Celiac Gene Pairs Present? Yes Celiac Gene Interpretation See Comment 76 Laboratory test 09/07/2018 [facility] Folic Acid > 20.00 ng/mL > 3.99 finding [phone] (Folate) Magnesium 1.9 mg/dL N 1.9-2.7 Comp Metabolic Panel 09/07/2018 [facility] Sodium 139 mmol/L N 135- 145 [phone] Potassium 4.3 mmol/L N 3.5-5.0 Chloride 101 [...] Egfr Non- 129.4 >60 Egfr 156.5 >60 77 CBC Auto Diff 09/07/2018 [facility] White Blood Count 6.3 10^3/uL N 3.5-10.8 [phone] Red Blood Count 4.61 10^6/uL N 4.00-5.40 [...] Nucleated Red Blood Cells % 0 1 Because ethnic data is not always readily [...] 15-29 5 Kidney failure <15 (or dialysis) 2 Normal Range 180 to 914 Indeterminate Range 145 to 180 Deficient Range <145 3 ADDITIONAL INFORMATION This test was developed and its performance characteristics determined by [facility] in a manner consistent with CLIA requirements. This test has not been cleared or approved by the U.S. Food and Drug Administration. Test Performed by: [facility] - [address] [address] 4 ADDITIONAL INFORMATION This test was developed and its performance characteristics determined by [facility] in a manner consistent with CLIA requirements. This test has not been cleared or approved by the U.S. Food and Drug Administration. Test Performed by: [facility] - [address] [address] 5 ADDITIONAL INFORMATION This test was developed and its performance characteristics determined by [facility] in a manner consistent with CLIA requirements. This test has not been cleared or approved by the U.S. Food and Drug Administration. Test Performed by: [facility] [employer] - [facility] [employer] [address] [place] [id number] 6 ADDITIONAL INFORMATION This test was developed and its performance characteristics determined by [facility] in a manner consistent with CLIA requirements. This test has not been cleared or approved by the U.S. Food and Drug Administration. Test Performed by: [facility] - [facility] [employer] [address] [place] [id number] 7 REFERENCE VALUE Not present Test Performed by: [facility] [employer] - [address] [address] 8 REFERENCE VALUE Cutoff: 1.0 9 REFERENCE VALUE Cutoff: 0.2 10 ADDITIONAL INFORMATION This test was developed and its performance characteristics determined by [facility] in a manner consistent with CLIA requirements. This test has not been cleared or approved by the U.S. Food and Drug Administration. Test Performed by: [facility] [employer] - [address] [address] 11 REFERENCE VALUE Cutoff: 500 12 REFERENCE VALUE Cutoff: 200 13 REFERENCE VALUE Cutoff: 100 14 REFERENCE VALUE Cutoff: 150 15 ADDITIONAL INFORMATION This report is intended for use in clinical monitoring or management of patients. It is not intended for use in employment-related testing. 16 REFERENCE VALUE Cutoff: 200 mg/L 17 Tylenol 3 18 Metabolite of codeine REFERENCE VALUE Cutoff: 100 19 Marielos John, Contin; Also a minor metabolite (10%) of codeine and can be seen in low concentrations (<2,000 ng/mL) with poppy seed ingestion. 20 Metabolite of morphine REFERENCE VALUE Cutoff: 100 21 Metabolite of heroin 22 Lortab, Beltrami, Vicodin; Also a very minor metabolite of codeine and impurity (<1%) of oxycodone. 23 Metabolite of hydrocodone 24 Metabolite of hydrocodone 25 Dilaudid, Exalgo; Also a metabolite of hydrocodone and a minor (<5%) metabolite of morphine. 26 Metabolite of hydromorphone REFERENCE VALUE Cutoff: 100 27 Endocet, Percocet, Oxycontin 28 Metabolite of oxycodone 29 Numorphan, Opana; Also a metabolite of oxycodone. 30 Metabolite of oxymorphone REFERENCE VALUE Cutoff: 100 31 Metabolite of oxymorphone 32 Actiq, Duragesic, Fentora 33 Metabolite of fentanyl 34 Demerol 35 Metabolite of meperidine 36 Narcan 37 Metabolite of naloxone REFERENCE VALUE Cutoff: 100 38 Dolophine 39 Metabolite of methadone 40 Darvon, Darvocet 41 Metabolite of propoxyphene 42 Tradol, Ultram, Ultracet 43 Metabolite of tramadol 44 Nucynta 45 Metabolite of tapentadol 46 Metabolite of tapentadol REFERENCE VALUE Cutoff: 100 47 Buprenex, Suboxone 48 Metabolite of buprenorphine 49 Metabolite of buprenorphine 50 Test detected the presence of oxycodone and several metabolites (noroxycodone, noroxymorphone, and qzruwhuqver-1-jeuq-glucuronide). Suspect use of oxycodone and/or oxymorphone within the past three days. Test detected the presence of fentanyl and its metabolite (norfentanyl). Suspect use of fentanyl within the past three days. ADDITIONAL INFORMATION This test was developed and its performance characteristics determined by [facility] in a manner consistent with CLIA requirements. This test has not been cleared or approved by the U.S. Food and Drug Administration. Test Performed by: [facility] - [facility] [address] [place] [address] 51 SEE RESULT BELOW Name: TAZ REYNOLDS : [address]: Michael Alexis MD Acct: [id number] Unit: [id number] AGE: 48 Location: [facility] Re09/14/18 SEX: M Status: ADM IN SPEC: [id number] JACKSON: 09/14/[address]: Farhan Pham MD REQ: [id number] RECD: 09/14/18 STATUS: IBAN MARQUIS DR: DO Sanford Mayo DO _ SOURCE: URINE SPDESC: ORDERED: Urine Culture Procedure Result Reported Site Urine Culture Final 09/15/18- 926 ML No Growth (<1,000 CFU/mL) * ML - Main Lab . END OF REPORT DEPARTMENT OF PATHOLOGY, [address] [place] [address] Wild Alves M.D. Director [facility] # [id number] 52 Troponin-I testing on Plasma Separator Tubes (PST) has a known false positive rate of 0.20-0.40%. All positive troponins reflex immediate secondary confirmatory testing. 53 Because ethnic data is not always readily [...] 15-29 5 Kidney failure <15 (or dialysis) 54 [facility] Severe Sepsis and Septic Shock Management Bundle Measure requires all lactic acids initially measuring >2.0 mmol/L be repeated. 55 Sewing Machine Repairer: [id number] 56 Sewing Machine Repairer: [id number] 57 No antibodies to WNV detected. Repeat testing in 10-14 days if clinical suspicion persists. Test Performed by: [facility] - [address] , [place] [address] 58 Warning: A positive result is not useful for establishing a diagnosis of syphilis. In most situations, such a result may reflect a prior treated infection; a negative result can exclude a diagnosis of syphilis except for incubating or early primary disease. 59 SEE RESULT BELOW Name: TAZ REYNOLDS : [address]: Sanford Jamison DO Acct: [id number] Unit: [id number] AGE: 48 Location: [facility] Re09/07/18 SEX: M Status: REG REF SPEC: [id number] JACKSON: 09/07/[address]: Sanford Jamison DO REQ: [id number] RECD: 09/07/18 STATUS: COMP _ SOURCE: BLOOD,VENO SPDESC: ORDERED: Blood Cult Procedure Result Reported Site Aerobic Culture Bottle Final 09/12/18- 1229 ML No Growth Day 5 Anaerobic Culture Bottle Final 09/12/18- 1229 ML No Growth Day 5 * ML - Main Lab . END OF REPORT DEPARTMENT OF PATHOLOGY, [address] [place] [address] Wild Alves M.D. Director [facility] # [id number] 60 It is recognized that currently available assays [...] 95% confidence interval of 99.78 to 99.96%. 61 This individual DOES have the Methylenetetrahydrofolate reductase [...] therapy). If clinically indicated, suggest Coagulation Consultation 80023 (Thrombophila Profile) to complete the evaluation for an inherited or acquired thrombosing disorder (i.e., thrombophilia). Consider genetic consultation and counseling of potentially affected family members regarding laboratory testing. ADDITIONAL INFORMATION This test is a direct mutation analysis using PCR amplification, signal generation and release by cleavage of sequence specific alleles ([employer], [employer], [place], [place]). This test has been modified from the [facility]'s instructions. Its performance characteristics were determined by [facility] in a manner consistent with CLIA requirements. This test has not been cleared or approved by the U.S. Food and Drug Administration. 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 MTHAC F3078O carriers are not at increased risk for thrombosis in the absence of hyperhomocysteinemia. In the absence of alternative causes, heterozygous carriers of MTHAC B6998T are not at increased risk for hyperhomocysteinemia. Hyperhomocysteinemia is a relatively weak risk factor for both venous thromboembolism and arterial thrombosis. The MTHAC G1713C gene mutation test does not detect other causes of hyperhomocysteinemia due to acquired disorders (renal failure, zinc deficiency, leukemia, psoriasis, or antifolate drug therapy). If clinically indicated, suggest Coagulation Consultation 07157 (Thrombophila Profile) to complete the evaluation for an inherited or acquired thrombosing disorder (i.e., thrombophilia). Consider genetic consultation and counseling of potentially affected family members regarding laboratory testing. ADDITIONAL INFORMATION This test is a direct mutation analysis using PCR amplification, signal generation and release by cleavage of sequence specific alleles ([employer], [employer], [place]). This test has been modified from the [facility] hospice's instructions. Its performance characteristics were determined by [facility] in a manner consistent with CLIA requirements. This test has not been cleared or approved by the U.S. Food and Drug Administration. 64 RESULT: EULALIO Cloud This test is a direct mutation analysis using PCR amplification, signal generation and release by cleavage of sequence specific alleles ([employer], [employer], [place], [place]). This test has been modified from the [facility]pn rn hospice's instructions. Its performance characteristics were determined by [facility] in a manner consistent with CLIA requirements. This test has not been cleared or approved by the U.S. Food and Drug Administration. Test Performed by: [facility] - [address] [address] 65 Normal Range 180 to 914 Indeterminate Range 145 to 180 Deficient Range <145 66 ADDITIONAL INFORMATION This test was developed and its performance characteristics determined by [facility] in a manner consistent with CLIA requirements. This test has not been cleared or approved by the U.S. Food and Drug Administration. 67 ADDITIONAL INFORMATION This test was developed and its performance characteristics determined by [facility] in a manner consistent with CLIA requirements. This test has not been cleared or approved by the U.S. Food and Drug Administration. Test Performed by: [facility] - [address] [address] 68 ADDITIONAL INFORMATION This test was developed and its performance characteristics determined by [facility] in a manner consistent with CLIA requirements. This test has not been cleared or approved by the U.S. Food and Drug Administration. 69 No bands detected 70 No bands detected 71 Specific serologic response to B. burgdorferi infection [...] >=30 days of symptoms. Test Performed by: [facility] [place] [address] 72 REFERENCE VALUE <4.0 (Negative) Test Performed by: [place] [address] 73 Negative serology. Celiac disease unlikely. However, approximately 10% of patients with celiac disease are seronegative. Also, patients who are already adhering to a gluten-free diet may be seronegative. If celiac disease is highly clinically suspected, consider HLA-DQ typing. Test Performed by: [facility] [place] [address] 74 RESULT: 01:02,05:01 REFERENCE VALUE Not Applicable 75 RESULT: 02:01,06:04 DQ Serologic Equivalent: 2,6 REFERENCE VALUE Not Applicable 76 These genes are permissive for celiac disease. The absence of HLA celiac permissive genes would make the presence of celiac disease unlikely. However, these genes can also be present in the normal population. ADDITIONAL INFORMATION Method: Molecular typing of HLA antigens performed using reverse SSOP and/or SSP methods, reported as serological equivalents and low to medium resolution molecular values. Performing Laboratory CLIA# [id number] Test Performed by: [address] [address] 77 Because ethnic data is not always readily [...] dialysis) Procedures Date Code Description Status 10/05/2018 481602527 Diabetic Foot Exam Completed 09/07/2018 55346 SC/Im Injections Completed Encounters Type Date Location Provider Dx Diagnosis Office Visit 11/05/2018 Main Office Zeynep Guallpa, Z01.818 Encounter for other 9:40a P.A. preprocedural examination H26.9 Unspecified cataract E11.65 Type 2 diabetes mellitus with hyperglycemia Z98.84 Bariatric surgery status K46.9 Unspecified abdominal hernia without obstruction or gangrene Office Visit 10/05/2018 11:30a Main Office Sanford [...] am - Sanford Jamison D.O. at Main Sjwmks6311/05/2018 - Marc Monson.Z01.818 Encounter for other preprocedural examinationFollow up:let me know via the portal when bowel movement workH26.9 Unspecified huyiisxkW79.65 Type 2 diabetes mellitus with bhypisvulshljX39.84 Bariatric surgery ynnakuU52.9 Unspecified abdominal hernia without obstruction or gangrene
--- OUTSIDE RECORDS SUMMARY | 2018-12-04 19:34 | XMS REPORT | Continuity of Care Document ---
:1970 External Reference #:[id number] Author Name Misbah Reed M.D. Address [address] [place] [address] Care Team Providers Name Role Phone Sanford Jamison D.O. Primary Care Physician Unavailable Payers Date Identification Numbers Payment Provider Subscriber Policy Number: [id number] Medicaid Jordan Jackson PayID: [id number] [address] [place] [address] Advance Directives Description No Information Available Problems Active Problems Provider Date Type 2 diabetes mellitus Onset: Note: TYPE 3C Benign prostatic hypertrophy with outflow Onset: obstruction Type 2 diabetes mellitus with mild Misbah Reed M.D. Onset: 10/26/2018 nonproliferative diabetic retinopathy without macular edema, bilateral Combined form of senile cataract Misbah Reed M.D. 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 ETOH Use Denies alcohol use Tobacco Use Start: Unknown End: Patient is a former smoker Recreational Drug Use Denies Drug Use Smoking Status Reviewed: 11/09/18 Patient is a former smoker Allergies, Adverse Reactions, Alerts Description No Known Drug Allergies Medications Active Medications SIG Qnty Indications Ordering Date Provider Ciprofloxacin HCL instill one drop in 10ml Misbah Villatoro 11/09/2018 0.3% the right eye three Sara Reed Solution times a day, start the day before surgery Ketorolac Tromethamine use one drop in the 10ml Misbah Villatoro 11/09/2018 right eye three Sara Reed 0.5% Solution times a day, start the day before surgery Prednisolone Acetate 1 drops right eye 15ml Misbah Villatoro 11/09/2018 1% three times a day. Sara Reed Suspension taper as directed Tramadol HCL Unknown 50mg Tablets Alfuzosin HCL ER Unknown 10mg Tablets ER 24HR Magnesium 2x/day Unknown 500mg Capsules Zinc Unknown 50mg Tablets Miralax dissolve 17gm in Unknown 3350NF Powder 4-8ox liquid and drink twice a day as needed for constipation Fentanyl Unknown 25mcg/HR Patches 72HR Humalog Kwikpen Unknown 100Unit/ML Solution Pen-Inject Lantus Unknown 100Unit/ML Solution Lisinopril Unknown 10mg Tablets Metformin HCL Unknown 500mg Tablets Chantix Continuing Unknown Month Bautista 1mg Tablets Ergocalciferol Unknown 32058Iihp Capsules Lyrica 3 daily Unknown 75mg Capsules Oxycodone HCL Unknown 10mg Tablets Immunizations Description No Information Available Vital Signs Description No Information Available Results Description No Information Available Procedures Date Code Description Status 10/26/2018 09681 New Patient Comprehensive Exam Completed Encounters Description No Information Available Plan of Treatment Future Appointment(s):04/17/2019 1:10 pm - Nadira Greenwood O.D. at Misbah Reed MD, 12/07/2018 12:00 pm - Nadira Greenwood O.D. at Misbah Reed MD, 11/22/2018 12:15 pm - Misbah Reed M.D. at Misbah Reed MD, 11/2018 12:30 pm - Misbah Reed M.D. at Misbah Reed MD, 11/21/2018 7: 00 am - Misbah Reed M.D. at Misbah Reed MD, 11/14/2018 7:00 am - Misbah Reed M.D. at Misbah Reed MD, pc11/09/2018 - Misbah Reed M.D.H25.811 Combined forms of age-related cataract, right eyeComments:Smoking can increase the risk of developing or worsening any eye related disease, as well as affect your overall health. If you are a smoker, we strongly recommend that you quit.If you are not a smoker, we strongly recommend that you do not start. Dense cataract in the right eye.Follow up:For surgery. Please keep post op appointments as scheduled.DFE/IOPH25.812 Combined forms of age-related cataract, left eyeE11.2060 Type 2 diabetes mellitus with mild nonproliferative diabetic
--- OUTSIDE RECORDS SUMMARY | 2018-12-04 19:34 | XMS REPORT | Continuity of Care Document ---
:1970 External Reference #:[id number] Author Name Misbah Reed M.D. Address [address] [facility] [place] [address] Care Team Providers Name Role Phone Sanford Jamison D.O. Primary Care Physician Unavailable Payers Date Identification Numbers Payment Provider Subscriber Policy Number: [id number] [employer] PayID: [id number] [address] [place] [address] Policy Number: [id number] Medicaid [employer] PayID: [id number] [place] [address] Advance Directives Description No Information Available Problems Active Problems Provider Date Type 2 diabetes mellitus Onset: Note: TYPE 3C Benign prostatic hypertrophy with outflow Onset: obstruction Presence of intraocular lens Misbah Reed M.D. Onset: 11/15/2018 Type 2 diabetes mellitus with mild Misbah Reed M.D. Onset: 10/26/2018 nonproliferative diabetic retinopathy without macular edema, bilateral Combined form of senile cataract Misbah Reed M.D. 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 ETOH Use Denies alcohol use Tobacco Use Start: Unknown End: Patient is a former smoker Recreational Drug Use Denies Drug Use Smoking Status Reviewed: 11/15/18 Patient is a former smoker Allergies, Adverse Reactions, Alerts Description No Known Drug Allergies Medications Active Medications SIG Qnty Indications Ordering Date Provider Ciprofloxacin HCL instill one drop in 10ml Misbah Villatroo 11/09/2018 0.3% the right eye three Sara [...] Unknown Month Bautista 1mg Tablets Ergocalciferol Unknown 32748Fjuo Capsules Lyrica 3 daily Unknown 75mg Capsules Oxycodone HCL Unknown 10mg Tablets Immunizations Description No Information Available Vital Signs Description No Information Available Results Test Date Facility Test Result H/L Range Note Laboratory test 11/14/2018 [facility] Point [facility] Care 212 mg/dL High 70-[address] [place], [place] [id number] [phone] 6 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 at Misbah Reed MD, 12/07/2018 12:00 pm - Nadira Greenwood O.D. at Misbah Reed MD, pc11/22/2018 12:15 pm - Misbah Reed M.D. at Misbah Reed MD, 05/2019 7:00 am - Misbah Reed M.D. at Misbah Reed MD, 11/15/2018 - Misbah Reed M.D.H25.812 Combined forms of age-related cataract, left eyeComments:Smoking can increase the risk of developing or worsening any eye related disease, as well as affect your overall health. If you are a smoker, we strongly recommend that you quit.If you are not a smoker, we strongly recommend that you do not start. Dense cataract in the left eye.Follow up:For surgery. Please keep post op appointments as scheduled.Z96.1 Presence of intraocular lensComments:The artifical lens implant in your right eye appears to be stable. Since this is the first day after surgery, your right eye is still dilated and the vision will still be slightly blurry. The dilation will go down over the next day or two. Continue taking your eye drops as directed on the surgical calendar. If you have any questions, please call our office.E11.6396 Type 2 diabetes mellitus with mild nonproliferative diabetic
--- NOTE | 2018-12-04 21:34 | ED ---
Psychiatric Complaint - HPI Summary HPI Summary: Patient is a 48 y/o M presenting to ED for SI. He states that he has been dealing with various medical conditions for the past four months. Patient is upset with his medical conditions and associated pain. He states, "I don't feel like there is any reason to continue" and he is unsure if there is any way for him to get better. Patient notes previous episodes of SI and states that he had a previous suicide attempt 5-6 years ago where he tried to overdose on insulin. A friend found him having a seizure and 911 was subsequently called. Patient states that he had thoughts of making another similar attempt last night, noting that he had gotten his insulin out last night and was thinking about acting on his thoughts. Ultimately, he did not. He notes he is on morphine 60 mg TID, oxycodone 10 mg, tramadol, had medical marijuana but does not use. Home medications and allergies are reviewed. - History Of Current Complaint Chief Complaint: EDMentalHealth Time Seen by Provider: 12/04/18 21:24 Hx Obtained From: Patient Onset/Duration: Still Present Timing: Constant Severity Currently: Severe Character: Depressed Aggravating Factor(s): Other - medical conditions and associated pain Alleviating Factor(s): Nothing Has Suicidal: Reports: Thoughts, With A Plan, Demonstrates Gesture, Has Prior Attempt(s) - Allergies/Home Medications Allergies/Adverse Reactions: Allergies Allergy/AdvReac Type Severity Reaction Status Date / Time No Known Allergies Allergy Verified 11/30/18 10:19 Home Medications: Home Medications Dextran 70/Hypromellose [Artificial Tears] 1 drop BOTH EYES TID PRN 12/04/18 [ History Confirmed 12/04/18] Gabapentin CAP(*) [Neurontin 300 CAP(*)] 300 mg PO TID 12/04/18 [History Confirmed 12/04/18] Lubiprostone [Amitiza] 24 mg PO DAILY 12/04/18 [History Confirmed 12/04/18] Multivitamin [Multivitamins] 1 tab PO DAILY 12/04/18 [History Confirmed 12/04/18 ] PMH/Surg Hx/FS Hx/Imm Hx Endocrine/Hematology History: Reports: Hx Diabetes - type 1 Denies: Hx Thyroid Disease Cardiovascular History: Reports: Hx Cardiomegaly - ?, Hx Hypertension - past/ also has had low bp Denies: Hx Congestive Heart Failure, Hx Pacemaker/ICD, Other Cardiovascular Problems/Disorders Respiratory History: Reports: Hx Sleep Apnea - HISTORY OF WEIGHT LOSS AND NO LONGER HAS OR USES BIPAP, Other Respiratory Problems/Disorders Denies: Hx Asthma, Hx Chronic Obstructive Pulmonary Disease (COPD) GI History: Reports: Hx Gall Bladder Disease - gall bladder removal, Hx Irritable Bowel - mild Denies: Hx Ulcer, Other GI Disorders History: Reports: Hx Benign Prostatic Hyperplasia - TURP 2014, Other Problems/Disorders - incontinence SELF CATH Q 6 HOUR Denies: Hx Kidney Stones, Hx Renal Disease Musculoskeletal History: Reports: Hx Arthritis, Hx Back Problems - back pain Sensory History: Reports: Hx Cataracts - kailee, Hx Contacts or Glasses - eyeglasses Denies: Hx Hearing Aid Opthamlomology History: Reports: Hx Cataracts - kailee, Hx Contacts or Glasses - eyeglasses Neurological History: Reports: Hx Headaches, Hx Migraine, Hx Nerve Disease - abd pain, hips r/t neuropaty/ polyneuritis, Hx Seizures - hypoglycemic seizures , Other Neuro Impairments/Disorders - OCCASIONAL NUMB FINGERS DUE TO LYMPH NODE SWELLING BILATERAL ARMPITS Denies: Hx Transient Ischemic Attacks (TIA) Psychiatric History: Reports: Hx Anxiety - had, pt denies currently, no longer takes meds, Hx Depression - OVER ILLNESS Denies: Hx Panic Disorder - Surgical History Surgery Procedure, Year, and Place: GALL BLADDER REMOVED,2007. bariatric surgery (April 2013). Nasal Surgery, 1999. Knee surgery left , 1981. Tonsillectomy, 1998. [id number]. removed some soft palette of mouth, 1998. TURP, 2014, [place] Hx Anesthesia Reactions: No - Immunization History Date of Tetanus Vaccine: unknown Date of Influenza Vaccine: 2013 Infectious Disease History: No Infectious Disease History: Denies: Hx Hepatitis, Hx Human Immunodeficiency Virus (HIV), Traveled Outside the [place] in Last 30 Days - Family History Known Family History: Negative: Respiratory Disease, Seizure Disorder - Social History Alcohol Use: None Substance Use Type: Reports: Marijuana Substance Use Comment - Amount & Last Used: medical Hx Tobacco Use: Yes Smoking Status (MU): Former Smoker Type: Cigarettes Amount Used/How Often: on and off for years Have You Smoked in the Last Year: No Review of Systems Negative: Fever - on vitals, temp is 98.6 F Psychological: Other - POSITIVE - SI Positive: Depressed All Other Systems Reviewed And Are Negative: Yes Physical Exam - Summary Physical Exam Summary: Appearance: Well-appearing, Well-nourished, lying in bed comfortable Skin: Warm, dry, no obvious rash Eyes: sclera anicteric, no conjunctival pallor ENT: mucous membranes moist Neck: deferred Respiratory: No signs of respiratory distress Cardiovascular: Appears well perfused, pulses are nml Abdomen: deferred Musculoskeletal: Moving all 4 extremities without obvious discomfort Neurological: Awake and alert, mentation is normal, speech is fluent and appropriate Psychiatric: patient appears depressed and is tearful Triage Information Reviewed: Yes Vital Signs On Initial Exam: Initial Vitals Temp Pulse Resp BP Pulse Ox 98.6 F 83 18 195/119 95 12/04/18 19:14 12/04/18 19:14 12/04/18 19:14 12/04/18 19:14 12/04/18 19:14 Vital Signs Reviewed: Yes Diagnostics - Vital Signs Vital Signs Temp Pulse Resp BP Pulse Ox 12/04/18 19:14 98.6 F 83 18 195/119 95 - Laboratory Result Diagrams: 12/04/18 21:39 12/07/18 07:32 Lab Statement: Any lab studies that have been ordered have been reviewed, and results considered in the medical decision making process. - EKG 2256 Cardiac Rate: NL - rate of 79 BPM EKG Rhythm: Sinus Rhythm Summary of EKG Findings: NSR at 79 BPM, P waves, QRS complex, and T waves are within normal limits, T waves and intervals are normal, no ischemic changes. This is a normal EKG. Re-Evaluation - Re-Evaluation First Eval Re-Evaluation Time: 01:31 Comment: Patient is medically cleared for MHE. Course/Dx - Course Course Of Treatment: Patient is a 48 y/o M presenting to ED for SI. He states that he has been dealing with various medical conditions for the past four months. Patient is upset with his medical conditions and associated pain. He states, "I don't feel like there is any reason to continue" and he is unsure if there is any way for him to get better. Patient notes previous episodes of SI and states that he had a previous suicide attempt 5-6 years ago where he tried to overdose on insulin. A friend found him having a seizure and 911 was subsequently called. Patient states that he had thoughts of making another similar attempt last night, noting that he had gotten his insulin out last night and was thinking about acting on his thoughts. Ultimately, he did not. He notes he is on morphine 60 mg TID, oxycodone 10 mg, tramadol, had medical marijuana but does not use. On physical exam, patient is noted to be depressed and tearful. NSR at 79 BPM, P waves, QRS complex, and T waves are within normal limits, T waves and intervals are normal, no ischemic changes. This is a normal EKG. Labs showed Hgb 12.8, MCV 79, MCH 26, Plt count 530, MPV 7, sodium 133, chloride 95, BUN 28, creatinine 0.62, BUN/creatinine ratio 45.2, glucose 161, alk phos 206, TSH 1.98. UA showed 3+ protein, 2+ ketone, trace leukocyte esterase, 2+ WBC, 2+ RBC, squamous eptih cells present, 1+ glucose, ascorbic acid present. Urine tox screen showed presumptive positive of opiates, cannabinoids. During ED course, patient received roxycodone 10 mg PO Q4H PRN PAIN, Ms Contin 60 mg PO Q8H ANIYA, Neurontin 300 mg PO TID ANIYA. Patient was medically cleared for MHE. Patient's case was discussed with Dr. Serra, patient will be a voluntary admit with Dx of unspecified psychosis. - Differential Dx/Clinical Impression Provider Diagnosis: Depression - Physician Notifications Discussed Care Of Patient With: Pura Serra Time Discussed With Above Provider: 04:00 Instructed by Provider To: Other - Patient's case was discussed with Dr. Serra , patient will be a voluntary admit with Dx of unspecified psychosis. Discharge - Sign-Out/Discharge Documenting (check all that apply): Patient Departure - admit Patient Received Moderate/Deep Sedation with Procedure: No - Discharge Plan Condition: Good Disposition: [place]CHIATRIC FAC[place] [place] Billing Disposition and Condition Condition: GOOD Disposition: Psychiatric Facility [facility] [place] - Attestation Statements Document Initiated by Scribe: Yes Documenting Scribe: LIZZ EISENBERG Provider For Whom Scribe is Documenting (Include Credential): GONSALO REED MD Scribe Attestation: LIZZ Norris, scribed for GONSALO REED MD on 12/10/18 at 0336. Scribe Documentation Reviewed: Yes Provider Attestation: The documentation as recorded by the LIZZ short accurately reflects the service I personally performed and the decisions made by me, GONSALO REED MD Status of [place] Document: Viewed
[2018-12-04 21:51] LABS: ABS Basophils 0.1 10^3/ul (0-0.2); ABS Eosinophils 0.1 10^3/ul (0-0.6); ABS Lymphocytes 1.2 10^3/ul (1.0-4.8); ABS Monocytes 0.7 10^3/ul (0-0.8); ABS Nucleated RBC 0 10^3/ul; Eosinophil % 1.2 %; Hematocrit 39 % (36-46); Hemoglobin 12.8 g/dL (14.0-18.0); Lymphocyte % 15.2 %; Mean Corpuscular HGB Conc 33 g/dL (31-36); Mean Corpuscular Hemoglobin 26 pg (27-31); Mean Corpuscular Volume 79 fL (80-94); Nucleated Red Blood Cells % 0; Platelet Count 530 10^3/uL (150-450); Red Blood Count 4.94 10^6 /uL (4.18-5.48); Red Cell Distribution Width 15 % (10.5-15); White Blood Count 8.1 10^3/uL (3.5-10.8)
[2018-12-04] MEDS ORDERED: Morphine TAB Extended Release (*) 30 MG TAB.ER PO SCH (22:00)
[2018-12-04 22:03] LABS: ALT 31 U/L (7-52); AST 22 U/L (13-39); Albumin 3.4 g/dL (3.2-5.2); Alkaline Phosphatase 206 U/L (34-104); Anion Gap 9 mmol/L (2-11); BUN/Creatinine Ratio 45.2 (8-20); Blood Urea Nitrogen 28 mg/dL (6-24); CO2 Carbon Dioxide 29 mmol/L (22-32); Calcium 8.9 mg/dL (8.6-10.3); Chloride 95 mmol/L (101-111); EGFR African American 168.3 (>60); EGFR Non-African American 139.1 (>60); Globulin 3.5 g/dL (2-4); Glucose 161 mg/dL (70-100); Sodium 133 mmol/L (135-145); Total Protein 6.9 g/dL (6.4-8.9)
[2018-12-04 22:09] LABS: Acetaminophen < 15 mcg/mL; Alcohol < 10 mg/dL (<10); Salicylate < 2.50 mg/dL (<30)
[2018-12-04 22:23] LABS: TSH (Thyroid Stimulating Horm) 1.98 mcIU/mL (0.34-5.60)
[2018-12-04] MEDS: oxyCODONE TAB* 5 MG TAB PO PRN (22:38)
[2018-12-04] MEDS: Gabapentin CAP(*) 300 MG PO SCH (22:38)
[2018-12-04] MEDS: Insulin GLARGINE(*) 1 UNITS UNIT SUBCUT ONE ×2 (22:39→22:53)
[2018-12-04 23:59] LABS: Urine Appearance Cloudy; Urine Bacteria Absent (Absent); Urine Bilirubin Negative (Negative); Urine Blood Negative (Negative); Urine Color Amber; Urine Glucose 1+(50 mg/dL) (Negative); Urine Ketones 2+ (Negative); Urine Nitrite Negative (Negative); Urine Protein 3+(>=500 mg/dL) (Negative); Urine Red Blood Cell 2+(6-10/hpf) (Absent); Urine Specific Gravity 1.035 (1.010-1.030); Urine Squamous Epithelial Cell Present (Absent); Urine Urobilinogen Negative (Negative); Urine White Blood Cell 2+(11-20/hpf) (Absent)
[2018-12-05 00:04] LABS: Urine Benzodiazepine Screen None Detected (None Detect); Urine Opiates Screen Presumptive Positive (None Detect)
[2018-12-05] MEDS: oxyCODONE TAB* 5 MG TAB PO PRN ×3 (04:20→20:32)
[2018-12-05] MEDS ORDERED: Al Hydrox/Mg Hydrox/Simet LIQ* 30 ML UDC PO PRN (05:40)
[2018-12-05] MEDS ORDERED: Dextrose 50% Syringe 50 ML* 25 GM/50 ML SYRINGE IV PUSH PRN ×2 (05:53→13:21)
--- NOTE | 2018-12-05 07:58 | PN ---
ED Flex Patient Progress Note Date of Service: 12/04/18 Subjective: This is a 48 year-old M who is pending admission to [facility] / transfer to another psychiatric facility / discharge to home / or being observed secondary to SI. Pt. examined in room 22 around 0745. He is sleeping comfortably. Door open. Objective: Vitals: Most recent vital signs documented below. General NAD Laboratory: Current laboratory results documented below. Assessment: psychosis Plan: Pending admission to [facility]. Daily medication already ordered by psychiatrist. Vital Signs Temp Pulse Resp BP Pulse Ox 98.3 F 92 17 136/79 97 12/05/18 03:20 12/05/18 03:20 12/05/18 03:20 12/05/18 03:20 12/05/18 03:20 Lab Results - Entire Visit 12/04/18 12/04/18 12/04/18 22:35 22:33 22:33 WBC RBC Hgb Hct MCV MCH MCHC RDW Plt Count MPV Neut % (Auto) Lymph % (Auto) [place] % (Auto) Eos % (Auto) Baso % (Auto) Absolute Neuts (auto) Absolute Lymphs (auto) Absolute Monos (auto) Absolute Eos (auto) Absolute Basos (auto) Absolute Nucleated RBC Nucleated RBC % Sodium Potassium Chloride Carbon Dioxide Anion Gap BUN Creatinine Est GFR ( Amer) Est GFR (Non-Af Amer) BUN/Creatinine Ratio Glucose POC Glucose (mg/dL) 152 H Calcium Total Bilirubin AST ALT Alkaline Phosphatase Total Protein Albumin Globulin Albumin/Globulin Ratio TSH Urine Color Alva Urine Appearance Cloudy Urine pH 5.0 Ur Specific Shelton 1.035 H Urine Protein 3+(>=500 mg/dl) A Urine Ketones 2+ A Urine Blood Negative Urine Nitrate Negative Urine Bilirubin Negative Urine Urobilinogen Negative Ur Leukocyte Esterase Trace A Urine WBC (Auto) 2+(11-20/hpf) A Urine RBC (Auto) 2+(6-10/hpf) A Ur Squamous Epith Cells Present A Urine Bacteria Absent Urine Glucose 1+(50 mg/dl) A Urine Ascorbic Acid * A Salicylates Urine Opiates Screen Presumptive positive A Acetaminophen Ur Barbiturates Screen None detected Ur Phencyclidine Scrn None detected Ur Amphetamines Screen None detected U Benzodiazepines Scrn None detected Urine Cocaine Screen None detected U Cannabinoids Screen Presumptive positive A Serum Alcohol 12/04/18 12/04/18 21:39 21:39 WBC 8.1 RBC 4.94 Hgb 12.8 L Hct 39 MCV 79 L MCH 26 L MCHC 33 RDW 15 Plt Count 530 H MPV 7.0 L Neut % (Auto) 74.3 Lymph % (Auto) 15.2 [place] % (Auto) 8.5 Eos % (Auto) 1.2 Baso % (Auto) 0.8 Absolute Neuts (auto) 6.0 Absolute Lymphs (auto) 1.2 Absolute Monos (auto) 0.7 Absolute Eos (auto) 0.1 Absolute Basos (auto) 0.1 Absolute Nucleated RBC 0 Nucleated RBC % 0 Sodium 133 L Potassium 4.0 Chloride 95 L Carbon Dioxide 29 Anion Gap 9 BUN 28 H Creatinine 0.62 L Est GFR ( Amer) 168.3 Est GFR (Non-Af Amer) 139.1 BUN/Creatinine Ratio 45.2 H Glucose 161 H POC Glucose (mg/dL) Calcium 8.9 Total Bilirubin 0.30 AST 22 ALT 31 Alkaline Phosphatase 206 H Total Protein 6.9 Albumin 3.4 Globulin 3.5 Albumin/Globulin Ratio 1.0 TSH 1.98 Urine Color Urine Appearance Urine pH Ur Specific Shelton Urine Protein Urine Ketones Urine Blood Urine Nitrate Urine Bilirubin Urine Urobilinogen Ur Leukocyte Esterase Urine WBC (Auto) Urine RBC (Auto) Ur Squamous Epith Cells Urine Bacteria Urine Glucose Urine Ascorbic Acid Salicylates < 2.50 Urine Opiates Screen Acetaminophen < 15 Ur Barbiturates Screen Ur Phencyclidine Scrn Ur Amphetamines Screen U Benzodiazepines Scrn Urine Cocaine Screen U Cannabinoids Screen Serum Alcohol < 10
--- NOTE | 2018-12-05 08:15 | ED ---
Progress - Progress Note Progress Note: The pt is a signout from Dr. Licona pending admission [place] [facility] [place] [facility]. As of 811, the pt will be admitted as per Dr. Serra with a dx of unspecified depression. Home Medications Medication Instructions Recorded Confirmed Type Insulin GLARGINE(*) [Lantus(*)] 12 units SUBCUT QPM 09/13/18 12/04/18 History Insulin LISPRO* [HumaLOG*] 1 unit SUBCUT SEE INSTRUCTIONS 09/13/18 12/04/18 History oxyCODONE TAB* [Roxycodone TAB 5 10 mg PO Q4H PRN tab 09/22/18 12/04/18 Rx mg*] Polyethylene Glycol 3350* 17 gm PO BID 09/27/18 12/04/18 History [Miralax*] Morphine Sulfate [Ms Contin] 60 mg PO TID 11/07/18 12/04/18 History Tramadol HCl 50 mg PO Q8H PRN 11/07/18 12/04/18 History Dextran 70/Hypromellose 1 drop BOTH EYES TID PRN 12/04/18 12/04/18 History [Artificial Tears] Gabapentin CAP(*) [Neurontin 300 300 mg PO TID 12/04/18 12/04/18 History CAP(*)] Lubiprostone [Amitiza] 24 mg PO DAILY 12/04/18 12/04/18 History Multivitamin [Multivitamins] 1 tab PO DAILY 12/04/18 12/04/18 History - Consult/PCP Time Called: 01:31 Re-Evaluation - Re-Evaluation First Eval Re-Evaluation Time: 01:31 Comment: Patient is medically cleared for MHE. Course/Dx - Course Course Of Treatment: The pt is a signout from Dr. Licona pending admission to [facility] [place] [facility]. As of 811, the pt will be admitted as per Dr. Serra with a dx of unspecified depression. - Diagnoses Provider Diagnoses: Depression - Provider Notifications Time Discussed With Above Provider: 04:00 Instructed by Provider To: Other - Patient's case was discussed with Dr. Serra , patient will be a voluntary admit with Dx of unspecified psychosis. Discharge - Sign-Out/Discharge Documenting (check all that apply): Patient Departure, Receiving Sign-Out Receiving patient FROM: Farhan Licona - Discharge Plan Condition: Good Disposition: [facility]CHIATRIC [facility]AC[facility] [place] Attestation Statements Document Initiated by Scribe: Yes Documenting Scribe: Sherita Nicohls Provider For Whom Scribe is Documenting (Include Credential): Dr. Namita Meza MD. Scribe Attestation: Sherita Norris, scribed for Dr. Namita Meza MD. on 12/05/18 at 1258. Status of Scribe Document: Ready
[2018-12-05] MEDS: Insulin LISPRO* 1 UNITS UNIT SUBCUT SCH ×6 (08:49→21:55)
--- NOTE | 2018-12-05 09:54 | HP ---
H&P (Free Text) History and Physical: Justification for admission: Immediate Safety. CC " I wanted to " The patient thought about ending his life by overdosing on insulin. He reported since August he has stopped working due to experiencing extreme pain thoughtful the day and has been increasingly depressed. He reported that by killing himself he wouldnt have to experience pain anymore. He reports that the pain is throughout his entire body. He reported reasons to live include seeing his grandson. He told his outpatient doctor about his thoughts of suicide and was told to come to the hospital. He denied access to firearms or stockpiles of medications. The patient denied homicidal ideation intent or plan. The patient denied auditory and/ or visual hallucinations. MDD He reported feeling depressed or having diminished interest in hobbies or interests which were present in the past , for most of the time, lasting more than 2 weeks. He reported having crying spells , feeling empty inside, feelings of hopelessness or worthless. He reported loss of energy or lack of motivation to complete tasks. He reported decreased concentration. Bipolar Denied symptoms of lindsey such as having many ideas at once. Denied increased talkativeness where no one can interrupt. 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 He reported having big business ideas but said that he will never see them through because they take too long. He reported having mood swings. Denied feeling irritable most of the time while having an persistent abundance of energy most of the day without the use of energy drinks, stimulants, or recreational drug use. Denied an increase in intensity in goal directed activities. Denied having the decreased need to sleep for days , having prolonged elevated heighted mood , or feeling on top of the world. Denied impulsive risky sexual encounters. Denied spending money recklessly , going on spending sprees wiping out savings. Denied impulsively traveling out of town or country, having super mchugh, and unrealistic wealth or fame. Anxiety Denied having symptoms of anxiety such as having times where heart feels that it is beating out of chest , sweaty palms, or shallow breathing. Denied having uncomfortable or intrusive thoughts. Denied feeling restless, high strung, or worrying too much most of the time. Psychosis Does not endorse hearing things that other people do not hear or seeing things other people do not see. Denied feeling that TV is making references. Denied feeling that people are spying , following , or reading their thoughts. Phobias: Patient denied having excessive fear of a particular thing or situation. Eating disorders: Patient denied having excessive eating habits or feelings of guilt after eating. Denied repeated episodes of self induced vomiting after eating. PTSD Denied flashbacks, nightmares and avoidance of a prior traumatic event. PAST PSYCHIATRIC HISTORY: Prior Diagnosis : Major Depressive Disorder History of past Psychiatric Hospitalizations: No prior psychiatric admission. History of past suicide/homicide attempts : 1 past suicide attempts by overdosing with insulin 5 years ago. Denied past homicidal incidents. Outpatient follow-up: No current psychiatric provider Medications: Past trials of medications include cymbalta 30mg daily, On Chantix since August 2018 stopped using 2 weeks ago. Guardianship: None. FAMILY HISTORY: - Suicide: Sister attempted suicide without lethal outcome. - Mental illness: Sister has history of depression - Substance abuse: Denied substance abuse among family members. SUBSTANCE ABUSE HISTORY: Denied using alcohol, heroin and cocaine other illicit substances. Denied abusing pills not prescribed . Denied past Substance abuse treatment. - EtOH: Denied using recently or in the past. - Tobacco: Quit August 2018 after 30 years of 1PPD - Cannabis: Denied using recently or in the past. - Heroin: Denied using recently or in the past. - Cocaine: Denied using recently or in the past. - Substance abuse treatment: Denied past substance abuse treatment SOCIAL HISTORY: - Childhood: Denied History of physical or sexual abuse Born in [place] and has 3 children. He is and lives with his mother. 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 - Legal history: Denied - service history: Denied PAST MEDICAL HISTORY: DM 1 ( previously Dx with DM II) , Neuropathy s/p gastric bypass surgery, polyneuritis - Allergies: Denied drug or other allergies. Physical Exam: Please see ED note Mental Status Exam on Admission APPEARANCE : 48 year old who appears stated age. Ambulates with a walker. Patient is not malodourous, and appears to have fair hygiene and grooming. BEHAVIOR: Cooperative , calm EYE CONTACT: Fair PSYCHOMOTOR ACTIVITY: No psychomotor agitation or retardation. MOVEMENTS: No abnormal movements observed. SPEECH : Normal rate, rhythm, volume and tone. MOOD : "Sad " AFFECT : Type is depressed, Range is restricted , Mood congruent , labile THOUGHT PROCESS: formulated and organized in a logical, linear goal directed manner. No flight of ideas , neologism (made up words) , perseveration , tangential , loose associations , or circumstantiality. THOUGHT CONTENT: no delusions, preoccupations, obsessions, phobias or preoccupations. PERCEPTION: No current auditory or visual hallucinations. Doesnt appear to be responding to internal cues. No evidence of depersonalization , de-realization, or illusions SUICIDALITY Recent suicidal ideation HOMICIDALITY Denied homicidal ideation, intent or plan. Insight/judgment: Poor insight and judgment ORIENTATION: Oriented to self, location, and time. Diagnosis on Admission: Major Depressive Disorder Assessment: 48 year old with history of depression came to the hospital with suicidal ideation and was admitted to the B[facility] at [facility]. Plan #Admit to BSU, Q15 minute observation. Start regular diet. Encourage participation in activities on the milieu. #Patient evaluated in ED and was determined by the emergency room Physician to be medically stable for admission to the BSU. # Justification for Admission: For immediate safety per outlined in the [facility] Hygiene Code. # Voluntary admission. The patient requires inpatient admission at this time to assure safety, receive treatment and work toward stabilization. # Labs ordered: CBC, CMP, UDS, TSH, HBA1c, TSH, Toxicology screen, Urine analysis, and lipid profile. EKG ordered for risk of QT prolongation # Obtain collateral information once release is signed. # Collaboration with Social Work to assist with disposition and after care. #PT consult Medicine consulted to manage medical issues [place] [employer] verified Rx. Tobacco use disorder: nicotine supplement and resources offered and he declined. #Goals before discharge include: Decrease depression and eradicate suicidal ideation The risks, benefits, and alternative treatment options were discussed as well as of the risks of refusing treatment. After this discussion and an acknowledgement of this understanding was made. A risk/ benefit assessment of treatment was considered and discussed with the patient. When comparing the risks of treatment with the dangers of not receiving treatment, the benefits of treatment outweigh the treatment risks at this time. Risks of suicidal ideation , behavioral changes, dystonia, movement disorders, cardiac conduction changes , serotonin syndrome, metabolic risks and NMS were among some of the risks discussed. Acetaminophen (Tylenol Tab*) 650 mg PO Q4H PRN PRN Reason: PAIN or TEMP > 101 F Al Hydrox/Mg Hydrox/Simethicone (Maalox Plus*) 30 ml PO Q4H PRN PRN Reason: INDIGESTION Dextrose (D50w Syringe 50 Ml*) 12.5 gm IV PUSH .FOR FS < 60 - SS PRN PRN Reason: FS < 60 Dextrose (D50w Syringe 50 Ml*) 12.5 gm IV PUSH .FOR FS < 60 - SS PRN PRN Reason: FS < 60 Duloxetine HCl (Cymbalta Cap*) 30 mg PO DAILY [facility] Gabapentin (Neurontin Cap(*)) 300 mg PO TID [facility] Last Admin: 12/05/18 14:07 Dose: 300 mg Insulin Glargine (Lantus(*)) 12 units SUBCUT QPM [facility] Insulin Human Lispro (Humalog*) 0 units SUBCUT AC [facility]; Protocol Last Admin: 12/05/18 12:21 Dose: 2 units Insulin Human Lispro (Humalog*) 0 units SUBCUT ACHS [facility]; Protocol Last Admin: 12/05/18 14:08 Dose: Not Given Lubiprostone (Amitiza (Nf)) 24 mcg PO DAILY [facility] Last Admin: 12/05/18 10:57 Dose: Not Given Morphine Sulfate (Ms Contin(*)) 60 mg PO Q8H [facility] Morphine Sulfate (Ms Contin(*)) 45 mg PO ONCE ONE Stop: 12/05/18 15:01 Multivitamins (Theragran Tab*) 1 tab PO DAILY [facility] Last Admin: 12/05/18 10:58 Dose: Not Given Naloxone HCl (Narcan Nasal [place]) 4 mg INTRANASAL .REPEAT Q2M to Q3M PRN PRN Reason: BEHAVIOR Oxycodone HCl (Roxycodone Tab*) 10 mg PO Q4H PRN PRN Reason: PAIN Polyethylene Glycol/Electrolytes (Miralax*) 17 gm PO BID [facility] Last Admin: 12/05/18 10:58 Dose: Not Given Polyvinyl Alcohol (Polyvinyl Alcohol 1.4% Opth*) 1 drop BOTH EYES TID PRN PRN Reason: DRY EYES Senna (Senokot Tab*) 1 tab PO BEDTIME PRN PRN Reason: CONSTIPATION Tramadol HCl (Ultram*) 50 mg PO Q8H PRN PRN Reason: PAIN - BREAKTHROUGH Sodium 133 mmol/L (135-145) L 12/04/18 21:39 Potassium 4.0 mmol/L (3.5-5.0) 12/04/18 21:39 BUN 28 mg/dL (6-24) H 12/04/18 21:39 Creatinine 0.62 mg/dL (0.67-1.17) L 12/04/18 21:39 Calcium 8.9 mg/dL (8.6-10.3) 12/04/18 21:39 AST 22 U/L (13-39) 12/04/18 21:39 ALT 31 U/L (7-52) 12/04/18 21:39 Vital Signs Temp Pulse Resp BP Pulse Ox 97.8 F 87 18 155/88 99 12/05/18 09:06 12/05/18 09:06 12/05/18 14:07 12/05/18 09:06 12/05/18 09:06
[2018-12-05] MEDS: Gabapentin CAP(*) 300 MG PO SCH ×3 (10:57→20:32)
[2018-12-05] MEDS: CMCS:Lubiprostone 24 MCG CAP (NF) PO SCH (10:57)
[2018-12-05] MEDS: Vitamin THERAPEUTIC TAB PO SCH (10:58)
[2018-12-05] MEDS: Polyethylene Glycol 3350* 17 GM PACKET PO SCH ×2 (10:58→20:36)
[2018-12-05] MEDS ORDERED: DULoxetine DR CAP* 20 MG CAP.DR PO SCH (12:00)
[2018-12-05] MEDS ORDERED: Naloxone Nasal Spray* 4 MG/0.1 ML NASAL.SPR INTRANASAL PRN (13:28)
[2018-12-05] MEDS ORDERED: traMADol TAB* 50 MG PO PRN (13:31)
[2018-12-05] MEDS ORDERED: DULoxetine DR CAP* 30 MG CAP.DR PO ONE (13:49)
[2018-12-05] MEDS ORDERED: Morphine TAB Extended Release (*) 30 MG TAB.ER PO SCH (14:00)
[2018-12-05] MEDS ORDERED: Morphine TAB Extended Release (*) 15 MG TAB.ER PO SCH (14:00)
[2018-12-05] MEDS ORDERED: Insulin LISPRO* 1 UNITS UNIT SUBCUT SCH (14:00)
[2018-12-05] MEDS ORDERED: Morphine TAB Extended Release (*) 15 MG TAB.ER PO ONE (15:00)
[2018-12-05] MEDS: Acetaminophen TAB* 325 MG PO PRN ×2 (16:20→21:36)
[2018-12-05] MEDS ORDERED: Ondansetron TAB* 4 MG ONE (17:45)
[2018-12-05] MEDS ORDERED: Insulin GLARGINE(*) 1 UNITS UNIT SUBCUT SCH (18:00)
[2018-12-05] MEDS ORDERED: Ondansetron TAB* 4 MG PO ONE (18:10)
[2018-12-05] MEDS: traMADol TAB* 50 MG PO PRN (19:09)
[2018-12-05] MEDS: Senna TAB PO PRN (20:31)
[2018-12-05] MEDS: Morphine TAB Extended Release (*) 30 MG TAB.ER PO SCH (23:30)
[2018-12-06] MEDS: Acetaminophen TAB* 325 MG PO PRN (04:55)
[2018-12-06] MEDS: oxyCODONE TAB* 5 MG TAB PO PRN ×5 (04:55→21:12)
[2018-12-06] MEDS: Morphine TAB Extended Release (*) 30 MG TAB.ER PO SCH ×2 (07:10→15:30)
[2018-12-06] MEDS: Insulin LISPRO* 1 UNITS UNIT SUBCUT SCH ×7 (07:51→21:13)
[2018-12-06 08:19] LABS: HDL Cholesterol 25.7 mg/dL
[2018-12-06] MEDS: DULoxetine DR CAP* 30 MG CAP.DR PO SCH (08:33)
[2018-12-06] MEDS: CMCS:Lubiprostone 24 MCG CAP (NF) PO SCH (08:34)
[2018-12-06] MEDS: Ondansetron TAB* 4 MG PO PRN ×2 (08:34→16:58)
[2018-12-06] MEDS: Gabapentin CAP(*) 300 MG PO SCH ×3 (08:34→21:12)
[2018-12-06] MEDS: Vitamin THERAPEUTIC TAB PO SCH (08:40)
[2018-12-06] MEDS: Polyethylene Glycol 3350* 17 GM PACKET PO SCH ×2 (11:00→21:13)
[2018-12-06] MEDS: traMADol TAB* 50 MG PO PRN (11:00)
--- NOTE | 2018-12-06 12:12 | PN ---
Subjective - Subjective Date of Service: 12/06/18 Service Type: 97699 Hosp care 35 min high complexity Subjective: Nursing Report: Patient was visible on unit, no chemical restraints or PRNs. Slept overnight without incident. Attending group activities. CC: "I am doing better Patient was seen and evaluated by this provider in the common room. The patient reported he feels safe on the unit and is interacting with peers. He reported having an adequate appetite and sleep. The patient reports attending and participating in day groups. Per nursing no behavioral issues or overnight events reported. Patient reported that he is tolerating medications without side effects. Patient is requesting to use his phone to call his grandson. Objective - General Observations Appearance: Neat Appears Stated Age: Yes Stature: WNL Posture: WNL, Slumped Eye Contact: Average Behavior/Activity: WNL - Interaction Observations Attitude Towards Examiner: Cooperative Stated Mood: Dysphoric Affect: Blunted Speech Pattern/Tone: Clear, Quiet Volume Thought Process: Coherent Perception: WNL Thought Content: Depressive Thought Process: Lethality: Suicidal Planning Hallucination Type: None Delusion Type: None - Cognitive Function Orientation: A&O x 4 Level of Consciousness: Awake Cognition: WNL Insight: WNL Judgment Within Normal Limits: Yes Ability to Make Reasonable Decisions: Mildly Impaired - Medication Compliance Cooperative with Inpatient Medication Regimen: Yes - Group Participation Participates in Group Activities: Yes Assessment - Assessment Merits Inpatient Hospitalization: For Immediate Safety, For Stabilization Clinical Impression: 48 year old male with history of depression and multiple medical co- morbidities came to the hospital with suicidal ideation with plan to overdose on insulin. Plan - Plan Treatment Plan: Name: TAZ REYNOLDS Birthdate: 1970 [id number] #Q30 minute observation. With comfort room and computer privileges # Voluntary admission. The patient requires inpatient admission at this time to assure safety, receive treatment and work toward stabilization. # Continue current medications #CMP lab test for Na level with SNRI #Medicine consult placed to manage medical issues # Obtain collateral information once release is signed. # Collaboration with Social Work to assist with disposition and after care. Sodium 133 mmol/L (135-145) L 12/04/18 21:39 Potassium 4.0 mmol/L (3.5-5.0) 12/04/18 21:39 BUN 28 mg/dL (6-24) H 12/04/18 21:39 Creatinine 0.62 mg/dL (0.67-1.17) L 12/04/18 21:39 Hemoglobin A1c 7.5 % (4.0-5.6) H 12/06/18 07:31 Calcium 8.9 mg/dL (8.6-10.3) 12/04/18 21:39 AST 22 U/L (13-39) 12/04/18 21:39 ALT 31 U/L (7-52) 12/04/18 21:39 Triglycerides 141 mg/dL 12/06/18 07:31 Cholesterol 194 mg/dL 12/06/18 07:31 LDL Cholesterol 140 mg/dL 12/06/18 07:31 Vital Signs 12/05/18 12/05/18 12/05/18 13:07 13:27 14:06 Temperature Pulse Rate Respiratory 18 18 18 Rate Blood Pressure (mmHg) O2 Sat by Pulse Oximetry 12/05/18 12/05/18 12/05/18 14:07 15:00 16:05 Temperature Pulse Rate Respiratory 18 18 16 Rate Blood Pressure (mmHg) O2 Sat by Pulse Oximetry 12/05/18 12/05/18 12/05/18 16:19 16:36 17:00 Temperature 99.8 F Pulse Rate 83 Respiratory 16 16 16 Rate Blood Pressure 150/91 (mmHg) O2 Sat by Pulse 99 Oximetry 12/05/18 12/05/18 12/05/18 19:09 19:18 19:19 Temperature Pulse Rate Respiratory 16 16 16 Rate Blood Pressure (mmHg) O2 Sat by Pulse Oximetry 12/05/18 12/05/18 12/05/18 20:32 22:45 23:30 Temperature Pulse Rate Respiratory 16 16 16 Rate Blood Pressure (mmHg) O2 Sat by Pulse Oximetry 12/06/18 12/06/18 12/06/18 01:30 04:55 06:55 Temperature Pulse Rate Respiratory 16 20 16 Rate Blood Pressure (mmHg) O2 Sat by Pulse Oximetry 12/06/18 12/06/18 12/06/18 07:10 07:38 08:34 Temperature 98.0 F Pulse Rate 71 Respiratory 16 16 18 Rate Blood Pressure 145/76 (mmHg) O2 Sat by Pulse 97 Oximetry 12/06/18 12/06/18 12/06/18 11:00 11:03 11:04 Temperature Pulse Rate Respiratory 16 16 16 Rate Blood Pressure (mmHg) O2 Sat by Pulse Oximetry 12/06/18 11:37 Temperature Pulse Rate Respiratory 16 Rate Blood Pressure (mmHg) O2 Sat by Pulse Oximetry Continued Medication Management: Continue Outpt Medication Medications: Current Medications Acetaminophen (Tylenol Tab*) 650 mg PO Q4H PRN PRN Reason: PAIN or TEMP > 101 F Last Admin: 12/06/18 04:55 Dose: 650 mg Al Hydrox/Mg Hydrox/Simethicone (Maalox Plus*) 30 ml PO Q4H PRN PRN Reason: INDIGESTION Dextrose (D50w Syringe 50 Ml*) 12.5 gm IV PUSH .FOR FS < 60 - SS PRN PRN Reason: FS < 60 Dextrose (D50w Syringe 50 Ml*) 12.5 gm IV PUSH .FOR FS < 60 - SS PRN PRN Reason: FS < 60 Duloxetine HCl (Cymbalta Cap*) 30 mg PO DAILY [facility] Last Admin: 12/06/18 08:33 Dose: 30 mg Gabapentin (Neurontin Cap(*)) 300 mg PO TID [facility] Last Admin: 12/06/18 08:34 Dose: 300 mg Insulin Glargine (Lantus(*)) 12 units SUBCUT QPM [facility] Last Admin: 12/05/18 19:20 Dose: Not Given Insulin Human Lispro (Humalog*) 0 units SUBCUT AC [facility]; Protocol Last Admin: 12/06/18 08:20 Dose: 2 units Insulin Human Lispro (Humalog*) 0 units SUBCUT ACHS [facility]; Protocol Last Admin: 12/06/18 07:51 Dose: Not Given Lubiprostone (Amitiza (Nf)) 24 mcg PO DAILY [facility] Last Admin: 12/06/18 08:34 Dose: 24 mcg Morphine Sulfate (Ms Contin(*)) 60 mg PO Q8H [facility] Last Admin: 12/06/18 07:10 Dose: 60 mg Multivitamins (Theragran Tab*) 1 tab PO DAILY [facility] Last Admin: 12/06/18 08:40 Dose: Not Given Naloxone HCl (Narcan Nasal [place]) 4 mg INTRANASAL .REPEAT Q2M to Q3M PRN PRN Reason: BEHAVIOR Ondansetron HCl (Zofran Tab*) 4 mg PO Q6H PRN PRN Reason: NAUSEA Last Admin: 04/25/19 08:34 Dose: 4 mg Oxycodone HCl (Roxycodone Tab*) 10 mg PO Q4H PRN PRN Reason: PAIN Last Admin: 12/06/18 08:34 Dose: 10 mg Polyethylene Glycol/Electrolytes (Miralax*) 17 gm PO BID [facility] Last Admin: 12/06/18 11:00 Dose: 17 gm Polyvinyl Alcohol (Polyvinyl Alcohol 1.4% Opth*) 1 drop BOTH EYES TID PRN PRN Reason: DRY EYES Senna (Senokot Tab*) 1 tab PO BEDTIME PRN PRN Reason: CONSTIPATION Last Admin: 12/05/18 20:31 Dose: 1 tab Tramadol HCl (Ultram*) 50 mg PO TID PRN PRN Reason: PAIN - BREAKTHROUGH Last Admin: 12/06/18 11:00 Dose: 50 mg - Discharge Plan Discharge Plan: Inpatient Hospitalization
--- NOTE | 2018-12-06 19:21 | CONS ---
CC: Dr. Jamison; Dr. Hannon; Dr. Bateman, Psychiatry; Dr. Garcia, Urology* CONSULTATION REPORT: DATE OF CONSULT: 12/06/18 PRIMARY CARE PROVIDER: Dr. Jamison. REQUESTING PHYSICIAN: Dr. Bateman from Psychiatry. REASON FOR CONSULT: Abnormal EKG and medical management of diabetes and pain. HISTORY OF PRESENT ILLNESS: Jordan Jackson is a 48-year-old male with history of diabetes, insulin dependent, as well as depression, status post Young-en-Y bypass in 2012 for obesity with weight loss more than 200 pounds, as well as hyperlipidemia and hypertension, who came in to be hospitalized at our mental health unit with suicide ideation and worsening depression. Dr. Bateman asked the medicine service to see the patient in consultation in regards to medical management of his chronic medical conditions as mentioned above. PAST MEDICAL HISTORY: 1. Diabetes, type 2, insulin dependent. 2. Depression. 3. Obesity, status post Young-en-Y bypass in 2012, as well as recent laparoscopic abdominal surgery performed by Dr. Mcclendon on 09/14/18 with lysis of adhesions. 4. History of bilateral lower extremity painful neuropathy, on chronic narcotics. 5. History of neurogenic bladder due to neuropathy. The patient self- catheterized himself up to his admission time when he required Lindsay catheter to be placed back in. The patient is under the care of Dr. Garcia. 6. History of elevation of liver function tests, likely due to hepatosteatosis. 7. Status post cholecystectomy. 8. History of septoplasty for deviated septum. CURRENT MEDICATIONS: Include: 1. Duloxetine 30 mg daily. 2. Gabapentin 300 mg 3 times a day. 3. Insulin glargine 12 units q.p.m. 4. Insulin lispro sliding scale according to carb counting. 5. Amitiza 24 mcg daily. 6. Morphine extended release 60 mg every 8 hours. 7. Oxycodone 10 mg every 4 hours p.r.n. 8. Polyethylene glycol 17 g b.i.d. 9. Senna 1 tablet at bedtime. 10. Ultram on a p.r.n. basis. Please note that at home, the patient was on insulin lispro carb counting with each meal and glargine insulin 12 units at bedtime, which the patient used only if his sugars were more than 200 after dinner. ALLERGIES: No known drug allergies. FAMILY HISTORY: Positive for mother with history of TIA and breast cancer. Father with history of diabetes and pancreatitis. SOCIAL HISTORY: The patient has history of tobacco abuse remotely. There is no history of alcohol or drug use. His surrogate decision maker is his mother. Her phone number is [phone]. REVIEW OF SYSTEMS: The patient stated that he had problems with self- catheterization just before his admission and Lindsay catheter was placed back in. His chronic pain is well controlled on his medications. He has history of chronic constipation, which had improved once he was placed on lubiprostone by Dr. Hannon. He stated that he lost approximately 15 to 20 pounds of weight since August of 2018 with good results and according to his sugars. He has not been taking his insulin Lantus for the past several days due to lower sugars in the evening and adjustment of his diet. He had been requiring only his carb counting coverage with each meal. He feels that his depression is well managed at our psychiatric unit and he denies current suicidal ideation. All the remaining 12 systems were reviewed with the patient and were otherwise negative. PHYSICAL EXAM: Blood pressure 145/76, heart rate of 71 and regular, respiratory rate 16, oxygen saturation 97% on room air, temperature of 98.0. General: The patient is a pleasant 48-year-old male, who is in no acute distress. Alert, awake, and oriented x3. HEENT: Head: Atraumatic, normocephalic. Eyes: Pupils are equal, reactive to light and accommodation. Oropharynx is clear. Mucosa moist. Neck: Supple. No JVD. No bruits bilaterally. Cardiovascular: Regular rate and rhythm. No murmur. Respiratory : Clear to auscultation bilaterally. Abdomen: Soft, nontender. Bowel sounds are present in all 4 quadrants. Extremities: There is no edema. Pulses are + 2 bilaterally. No clubbing or cyanosis. Neuro Evaluation: Speech is clear. Cranial nerves II through XII are grossly intact. Motor strength is 5/5 bilaterally. DIAGNOSTIC STUDIES/LAB DATA: Laboratory data included TSH noted at 1.98 on . The patient's sugars have been ranging from 160 to 201. His cholesterol profile shows LDL of 140. Sodium was 133, potassium 4.0, chloride 95, carbon dioxide 29, BUN 28, creatinine 0.62. That was obtained on 12/04/18. On the same day, the patient' s liver function profile was unremarkable apart from slight elevation of alkaline phosphatase at 206, which has improved from prior. The patient's CBC on 12/04/18 showed white blood cell count of 8.1, hemoglobin of 12.8, hematocrit of 39, and platelets of 530. Urine tox screen was positive for cannabinoids and opiates at admission. The patient's EKG showed normal sinus rhythm with a heart rate of 79 beats per minute with possibility of old inferior infarct. This EKG was compatible with EKG obtained in August of 2018. ASSESSMENT AND PLAN: 1. We discussed with the patient his diabetic management. The patient has been very good at carb counting and keeping his sugars within range with insulin lispro with each meal. In addition to that, he was requested to administer his insulin Lantus only when his sugars are above 200 at night. I will also lower dose to 5 units daily for Lantus since the patient had not been using it for the past several days and his hemoglobin A1c is noted to be 7.5, which is a fair control. 2. In regards to the patient's abnormal EKG, this is chronic. The patient had been asymptomatic from cardiac standpoint and no further evaluation is necessary at this point. 3. In regards to the patient's chronic pain, it appears to be well controlled on current regimen, which should be continued. 4. In regards to the patient's suicidal ideations and depression, the patient feels that it had improved. Nevertheless, he is continued to be evaluated at mental health unit and treated here. Thank you very much for allowing our service to see the patient in consultation. We will sign off and see the patient on an as-needed basis. [id number]/[facility] #: [id number] SANYA
[2018-12-06] MEDS: Insulin GLARGINE(*) 1 UNITS UNIT SUBCUT SCH (20:31)
[2018-12-06] MEDS: Senna TAB PO PRN (21:12)
[2018-12-07] MEDS: Morphine TAB Extended Release (*) 30 MG TAB.ER PO SCH ×4 (00:14→22:38)
[2018-12-07] MEDS: oxyCODONE TAB* 5 MG TAB PO PRN ×3 (04:31→17:28)
[2018-12-07] MEDS: Gabapentin CAP(*) 300 MG PO SCH ×3 (07:46→20:24)
[2018-12-07] MEDS: Ondansetron TAB* 4 MG PO PRN (07:47)
[2018-12-07] MEDS: DULoxetine DR CAP* 30 MG CAP.DR PO SCH (07:47)
[2018-12-07] MEDS: Vitamin THERAPEUTIC TAB PO SCH (07:47)
[2018-12-07] MEDS: CMCS:Lubiprostone 24 MCG CAP (NF) PO SCH (07:48)
[2018-12-07] MEDS: Artificial Tears* 15 ML BTL BOTH EYES PRN ×3 (07:49→20:40)
[2018-12-07] MEDS: Insulin LISPRO* 1 UNITS UNIT SUBCUT SCH ×7 (08:15→20:26)
[2018-12-07 08:17] LABS: Albumin 2.6 g/dL (3.2-5.2); Calcium 8.3 mg/dL (8.6-10.3); EGFR African American 174.7 (>60); EGFR Non-African American 144.4 (>60); Globulin 2.6 g/dL (2-4); Potassium 4.1 mmol/L (3.5-5.0); Total Bilirubin 0.2 mg/dL (0.2-1.0); Total Protein 5.2 g/dL (6.4-8.9)
[2018-12-07] MEDS: Polyethylene Glycol 3350* 17 GM PACKET PO SCH ×2 (11:08→20:25)
--- NOTE | 2018-12-07 11:39 | PN ---
Subjective - Subjective Date of Service: 12/07/18 Service Type: 09407 Hosp care 35 min high complexity Subjective: Nursing Report: Patient was visible on unit, no chemical restraints or PRNs. Slept overnight without incident. CC: " I have more pain today" Patient is worried about going home because his family will be away and there will be no one there to take care of him. Patient reported being in more pain today. Patient was seen and evaluated in his room. He reported having an adequate appetite and sleep. The patient reports attending and participating in some of the day groups. Per nursing no behavioral issues or overnight events reported. Patient reported that he is tolerating medications without side effects. Objective - General Observations Appearance: Disheveled Appears Stated Age: Yes Stature: WNL Posture: Slumped Eye Contact: Average Behavior/Activity: Slowed - Interaction Observations Attitude Towards Examiner: Cooperative Stated Mood: Dysphoric Affect: Blunted Speech Pattern/Tone: Delayed Thought Process: Coherent Perception: WNL Thought Content: WNL Thought Process: Lethality: Passive Wish Hallucination Type: None Delusion Type: None - Cognitive Function Orientation: A&O x 4 Level of Consciousness: Awake Cognition: WNL Judgment Within Normal Limits: No Ability to Make Reasonable Decisions: Mildly Impaired - Medication Compliance Cooperative with Inpatient Medication Regimen: Yes - Group Participation Participates in Group Activities: Partial Assessment - Assessment Merits Inpatient Hospitalization: For Immediate Safety Clinical Impression: 48 year old male with history of depression and multiple medical co- morbidities came to the hospital with suicidal ideation with plan to overdose on insulin. Plan - Plan Treatment Plan: Name: TAZ REYNOLDS Birthdate: 1970 [id number] #Q30 minute observation. With staff pass, comfort room and computer privileges # Voluntary admission. The patient requires inpatient admission at this time to assure safety, receive treatment and work toward stabilization. # Continue current medications #Medicine consult placed to manage medical issues # Obtain collateral information once release is signed. # Collaboration with Social Work to assist with disposition and after care. Patient requires home Nursing assistance Sodium 136 mmol/L (135-145) 12/07/18 07:32 Potassium 4.1 mmol/L (3.5-5.0) 12/07/18 07:32 BUN 30 mg/dL (6-24) H 12/07/18 07:32 Creatinine 0.60 mg/dL (0.67-1.17) L 12/07/18 07:32 Hemoglobin A1c 7.5 % (4.0-5.6) H 12/06/18 07:31 Calcium 8.3 mg/dL (8.6-10.3) L 12/07/18 07:32 AST 39 U/L (13-39) 12/07/18 07:32 ALT 30 U/L (7-52) 12/07/18 07:32 Triglycerides 141 mg/dL 12/06/18 07:31 Cholesterol 194 mg/dL 12/06/18 07:31 LDL Cholesterol 140 mg/dL 12/06/18 07:31 Vital Signs Temp Pulse Resp BP Pulse Ox 98.0 F 81 16 142/87 96 12/07/18 07:41 12/07/18 07:41 12/07/18 11:04 12/07/18 07:41 12/07/18 07:41 Continued Medication Management: Continue Outpt Medication Medications: Current Medications Acetaminophen (Tylenol Tab*) 650 mg PO Q4H PRN PRN Reason: PAIN or TEMP > 101 F Last Admin: 12/06/18 04:55 Dose: 650 mg Al Hydrox/Mg Hydrox/Simethicone (Maalox Plus*) 30 ml PO Q4H PRN PRN Reason: INDIGESTION Dextrose (D50w Syringe 50 Ml*) 12.5 gm IV PUSH .FOR FS < 60 - SS PRN PRN Reason: FS < 60 Dextrose (D50w Syringe 50 Ml*) 12.5 gm IV PUSH .FOR FS < 60 - SS PRN PRN Reason: FS < 60 Duloxetine HCl (Cymbalta Cap*) 30 mg PO DAILY [facility] Last Admin: 12/07/18 07:47 Dose: 30 mg Gabapentin (Neurontin Cap(*)) 300 mg PO TID [facility] Last Admin: 12/07/18 07:46 Dose: 300 mg Insulin Glargine (Lantus(*)) 5 units SUBCUT QPM [facility] Last Admin: 12/06/18 20:31 Dose: Not Given Insulin Human Lispro (Humalog*) 0 units SUBCUT AC [facility]; Protocol Last Admin: 12/07/18 08:15 Dose: 6 units Insulin Human Lispro (Humalog*) 0 units SUBCUT ACHS [facility]; Protocol Last Admin: 12/07/18 08:17 Dose: 1 units Lubiprostone (Amitiza (Nf)) 24 mcg PO DAILY [facility] Last Admin: 12/07/18 07:48 Dose: 24 mcg Morphine Sulfate (Ms Contin(*)) 60 mg PO Q8H [facility] Last Admin: 12/07/18 07:47 Dose: 60 mg Multivitamins (Theragran Tab*) 1 tab PO DAILY [facility] Last Admin: 12/07/18 07:47 Dose: 1 tab Naloxone HCl (Narcan Nasal [place]) 4 mg INTRANASAL .REPEAT Q2M to Q3M PRN PRN Reason: BEHAVIOR Ondansetron HCl (Zofran Tab*) 4 mg PO Q6H PRN PRN Reason: NAUSEA Last Admin: 12/07/18 07:47 Dose: 4 mg Oxycodone HCl (Roxycodone Tab*) 10 mg PO Q4H PRN PRN Reason: PAIN Last Admin: 12/07/18 11:04 Dose: 10 mg Polyethylene Glycol/Electrolytes (Miralax*) 17 gm PO BID [facility] Last Admin: 12/07/18 11:08 Dose: 17 gm Polyvinyl Alcohol (Polyvinyl Alcohol 1.4% Opth*) 1 drop BOTH EYES TID PRN PRN Reason: DRY EYES Last Admin: 12/07/18 07:49 Dose: 1 drop Senna (Senokot Tab*) 1 tab PO BEDTIME PRN PRN Reason: CONSTIPATION Last Admin: 12/06/18 21:12 Dose: 1 tab Tramadol HCl (Ultram*) 50 mg PO TID PRN PRN Reason: PAIN - BREAKTHROUGH Last Admin: 12/06/18 11:00 Dose: 50 mg - Discharge Plan Discharge Plan: Inpatient Hospitalization
[2018-12-07] MEDS: traMADol TAB* 50 MG PO PRN (13:20)
[2018-12-07] MEDS: Insulin GLARGINE(*) 1 UNITS UNIT SUBCUT SCH (20:23)
[2018-12-07] MEDS: Senna TAB PO PRN (20:24)
[2018-12-08] MEDS: oxyCODONE TAB* 5 MG TAB PO PRN ×5 (02:50→20:24)
[2018-12-08] MEDS: traMADol TAB* 50 MG PO PRN ×2 (05:40→12:31)
[2018-12-08] MEDS: Morphine TAB Extended Release (*) 30 MG TAB.ER PO SCH ×3 (07:43→22:57)
[2018-12-08] MEDS: Vitamin THERAPEUTIC TAB PO SCH (07:44)
[2018-12-08] MEDS: DULoxetine DR CAP* 30 MG CAP.DR PO SCH (07:44)
[2018-12-08] MEDS: Gabapentin CAP(*) 300 MG PO SCH ×3 (07:46→20:24)
[2018-12-08] MEDS: Ondansetron TAB* 4 MG PO PRN (07:47)
[2018-12-08] MEDS: CMCS:Lubiprostone 24 MCG CAP (NF) PO SCH (07:48)
[2018-12-08] MEDS: Artificial Tears* 15 ML BTL BOTH EYES PRN ×3 (07:48→22:59)
[2018-12-08] MEDS: Insulin LISPRO* 1 UNITS UNIT SUBCUT SCH ×8 (07:49→20:23)
[2018-12-08] MEDS: Polyethylene Glycol 3350* 17 GM PACKET PO SCH ×2 (14:46→20:24)
[2018-12-08] MEDS: Insulin GLARGINE(*) 1 UNITS UNIT SUBCUT SCH (20:23)
[2018-12-08] MEDS: Senna TAB PO PRN (20:24)
[2018-12-08] MEDS: Acetaminophen TAB* 325 MG PO PRN (22:58)
[2018-12-09] MEDS: oxyCODONE TAB* 5 MG TAB PO PRN ×5 (02:15→21:06)
[2018-12-09] MEDS: traMADol TAB* 50 MG PO PRN (04:00)
[2018-12-09] MEDS: Morphine TAB Extended Release (*) 30 MG TAB.ER PO SCH ×3 (06:55→23:33)
[2018-12-09] MEDS: Insulin LISPRO* 1 UNITS UNIT SUBCUT SCH ×7 (08:13→20:28)
[2018-12-09] MEDS: Artificial Tears* 15 ML BTL BOTH EYES PRN ×2 (08:16→21:04)
[2018-12-09] MEDS: Gabapentin CAP(*) 300 MG PO SCH ×3 (08:18→21:04)
[2018-12-09] MEDS: CMCS:Lubiprostone 24 MCG CAP (NF) PO SCH (08:18)
[2018-12-09] MEDS: Vitamin THERAPEUTIC TAB PO SCH (08:18)
[2018-12-09] MEDS: DULoxetine DR CAP* 30 MG CAP.DR PO SCH (08:18)
[2018-12-09] MEDS: Polyethylene Glycol 3350* 17 GM PACKET PO SCH ×2 (10:48→21:03)
[2018-12-09] MEDS: Ondansetron TAB* 4 MG PO PRN (12:18)
--- NOTE | 2018-12-09 17:09 | PN ---
Subjective - Subjective Date of Service: 12/09/18 Service Type: 69671 Hosp care 15 min low complexity Subjective: Patient was seen on bedside. Says he was just resting. He was seen pacing earlier in the morning. Says he had a better day today although still depressed. Didn't have SI since Monday. Sugar is in good control. Reports of attending some groups which helps. Objective - General Observations Appearance: Unkempt Appears Stated Age: Yes Stature: Thin Posture: WNL Eye Contact: Average Behavior/Activity: WNL - Interaction Observations Attitude Towards Examiner: Cooperative Stated Mood: Dysphoric Affect: Restricted Speech Pattern/Tone: Clear Thought Process: Coherent, Goal Directed Perception: WNL Hallucination Type: None Delusion Type: None - Cognitive Function Orientation: A&O x 4 Level of Consciousness: Awake, Alert Cognition: WNL Estimated Intelligence: Normal Insight: WNL Judgment Within Normal Limits: Yes - Medication Compliance Cooperative with Inpatient Medication Regimen: Yes - Group Participation Participates in Group Activities: Partial Assessment - Assessment Merits Inpatient Hospitalization: For Stabilization, Consolidate Improvements, Pending Safe DC Plan Clinical Impression: 48 year old male with history of depression and multiple medical co- morbidities came to the hospital with suicidal ideation with plan to overdose on insulin. Plan - Plan Treatment Plan: Name: TAZ REYNOLDS Birthdate: 1970 [id number] #Q30 minute observation. With staff pass, comfort room and computer privileges # Voluntary admission. The patient requires inpatient admission at this time to assure safety, receive treatment and work toward stabilization. # Continue current medications #Medicine consult placed to manage medical issues # Obtain collateral information once release is signed. # Collaboration with Social Work to assist with disposition and after care. Patient requires home Nursing assistance Sodium 136 mmol/L (135-145) 12/07/18 07:32 Potassium 4.1 mmol/L (3.5-5.0) 12/07/18 07:32 BUN 30 mg/dL (6-24) H 12/07/18 07:32 Creatinine 0.60 mg/dL (0.67-1.17) L 12/07/18 07:32 Hemoglobin A1c 7.5 % (4.0-5.6) H 12/06/18 07:31 Calcium 8.3 mg/dL (8.6-10.3) L 12/07/18 07:32 AST 39 U/L (13-39) 12/07/18 07:32 ALT 30 U/L (7-52) 12/07/18 07:32 Triglycerides 141 mg/dL 12/06/18 07:31 Cholesterol 194 mg/dL 12/06/18 07:31 LDL Cholesterol 140 mg/dL 12/06/18 07:31 Vital Signs Temp Pulse Resp BP Pulse Ox 98.0 F 81 16 142/87 96 12/07/18 07:41 12/07/18 07:41 12/07/18 11:04 12/07/18 07:41 12/07/18 07:41 Continued Medication Management: Continue Outpt Medication Medications: Current Medications Acetaminophen (Tylenol Tab*) 650 mg PO Q4H PRN PRN Reason: PAIN or TEMP > 101 F Last Admin: 12/08/18 22:58 Dose: 650 mg Al Hydrox/Mg Hydrox/Simethicone (Maalox Plus*) 30 ml PO Q4H PRN PRN Reason: INDIGESTION Dextrose (D50w Syringe 50 Ml*) 12.5 gm IV PUSH .FOR FS < 60 - SS PRN PRN Reason: FS < 60 Dextrose (D50w Syringe 50 Ml*) 12.5 gm IV PUSH .FOR FS < 60 - SS PRN PRN Reason: FS < 60 Duloxetine HCl (Cymbalta Cap*) 30 mg PO DAILY [facility] Last Admin: 12/09/18 08:18 Dose: 30 mg Gabapentin (Neurontin Cap(*)) 300 mg PO TID [facility] Last Admin: 12/09/18 15:03 Dose: 300 mg Insulin Glargine (Lantus(*)) 5 units SUBCUT BEDTIME [facility] Last Admin: 12/08/18 20:23 Dose: Not Given Insulin Human Lispro (Humalog*) 0 units SUBCUT AC [facility]; Protocol Last Admin: 12/09/18 12:15 Dose: 2 units Insulin Human Lispro (Humalog*) 0 units SUBCUT ACHS [facility]; Protocol Last Admin: 12/09/18 16:53 Dose: Not Given Lubiprostone (Amitiza (Nf)) 24 mcg PO DAILY [facility] Last Admin: 12/09/18 08:18 Dose: 24 mcg Morphine Sulfate (Ms Contin(*)) 60 mg PO Q8H [facility] Last Admin: 12/09/18 15:04 Dose: 60 mg Multivitamins (Theragran Tab*) 1 tab PO DAILY [facility] Last Admin: 12/09/18 08:18 Dose: 1 tab Naloxone HCl (Narcan Nasal [place]) 4 mg INTRANASAL .REPEAT Q2M to Q3M PRN PRN Reason: BEHAVIOR Ondansetron HCl (Zofran Tab*) 4 mg PO Q6H PRN PRN Reason: NAUSEA Last Admin: 12/09/18 12:18 Dose: 4 mg Oxycodone HCl (Roxycodone Tab*) 10 mg PO Q4H PRN PRN Reason: PAIN Last Admin: 12/09/18 16:50 Dose: 10 mg Polyethylene Glycol/Electrolytes (Miralax*) 17 gm PO BID [facility] Last Admin: 12/09/18 10:48 Dose: 17 gm Polyvinyl Alcohol (Polyvinyl Alcohol 1.4% Opth*) 1 drop BOTH EYES TID PRN PRN Reason: DRY EYES Last Admin: 12/09/18 08:16 Dose: 1 drop Senna (Senokot Tab*) 1 tab PO BEDTIME PRN PRN Reason: CONSTIPATION Last Admin: 12/08/18 20:24 Dose: 1 tab Tramadol HCl (Ultram*) 50 mg PO TID PRN PRN Reason: PAIN - BREAKTHROUGH Last Admin: 12/09/18 04:00 Dose: 50 mg - Discharge Plan Discharge Plan: Outpatient Follow Up Outpatient Program: [facility]
[2018-12-09] MEDS: Insulin GLARGINE(*) 1 UNITS UNIT SUBCUT SCH (20:28)
[2018-12-10] MEDS: oxyCODONE TAB* 5 MG TAB PO PRN ×6 (01:05→21:21)
[2018-12-10] MEDS: traMADol TAB* 50 MG PO PRN ×3 (05:20→21:22)
[2018-12-10] MEDS: Morphine TAB Extended Release (*) 30 MG TAB.ER PO SCH ×3 (07:00→22:55)
[2018-12-10] MEDS: CMCS:Lubiprostone 24 MCG CAP (NF) PO SCH (08:04)
[2018-12-10] MEDS: DULoxetine DR CAP* 30 MG CAP.DR PO SCH (08:04)
[2018-12-10] MEDS: Gabapentin CAP(*) 300 MG PO SCH ×3 (08:04→20:26)
[2018-12-10] MEDS: Vitamin THERAPEUTIC TAB PO SCH (08:04)
[2018-12-10] MEDS: Ondansetron TAB* 4 MG PO PRN (08:06)
[2018-12-10] MEDS: Insulin LISPRO* 1 UNITS UNIT SUBCUT SCH ×7 (08:07→20:35)
[2018-12-10] MEDS: Artificial Tears* 15 ML BTL BOTH EYES PRN (08:07)
[2018-12-10] MEDS: Polyethylene Glycol 3350* 17 GM PACKET PO SCH ×2 (11:49→20:31)
--- NOTE | 2018-12-10 12:07 | PN ---
Subjective - Subjective Date of Service: 12/10/18 Service Type: [id number] Hosp care 35 min high complexity Subjective: Nursing Report: Patient was visible on unit, no chemical restraints or PRNs. Slept overnight without incident. CC: " I feel anxious" Patients family is going on a amtrak tour across the country he worried about going home because his family will be away and there will be no one there to take care of him. He noted that people from [facility] offered to have care services be there throughout the day. He reported having a increase in pain level. He reported having an adequate appetite and sleep. The patient reports attending and participating in some of the day groups. Per nursing no behavioral issues or overnight events reported. Patient reported that he is tolerating medications without side effects. Objective - General Observations Appearance: Disheveled Appears Stated Age: Yes Stature: WNL Posture: WNL Eye Contact: Average Behavior/Activity: Slowed - Interaction Observations Attitude Towards Examiner: Cooperative Stated Mood: Dysphoric Affect: Blunted Speech Pattern/Tone: Delayed Thought Process: Coherent Perception: WNL Thought Content: Self-Deprecatory Thought Process: Lethality: Passive Wish Hallucination Type: Denies Delusion Type: Denies - Cognitive Function Orientation: A&O x 4 Level of Consciousness: Awake Estimated Intelligence: Normal Judgment Within Normal Limits: No Ability to Make Reasonable Decisions: Mildly Impaired - Medication Compliance Cooperative with Inpatient Medication Regimen: Yes - Group Participation Participates in Group Activities: Yes Assessment - Assessment Clinical Impression: 48 year old male with history of depression and multiple medical co- morbidities came to the hospital with suicidal ideation with plan to overdose on insulin. Plan - Plan Treatment Plan: Name: TAZ REYNOLDS Birthdate: 1970 [id number] #Q30 minute observation. With staff pass, comfort room and computer privileges # Voluntary admission. The patient requires inpatient admission at this time to assure safety, receive treatment and work toward stabilization. # Add [id number] BID for anxiety #Medicine consult placed to manage medical issues # Family meeting scheduled for tomorrow # Collaboration with Social Work to assist with disposition and after care. Patient requires in home nursing assistance Sodium 136 mmol/L (135-145) 12/07/18 07:32 Potassium 4.1 mmol/L (3.5-5.0) 12/07/18 07:32 BUN 30 mg/dL (6-24) H 12/07/18 07:32 Creatinine 0.60 mg/dL (0.67-1.17) L 12/07/18 07:32 Hemoglobin A1c 7.5 % (4.0-5.6) H 12/06/18 07:31 Calcium 8.3 mg/dL (8.6-10.3) L 12/07/18 07:32 AST 39 U/L (13-39) 12/07/18 07:32 ALT 30 U/L (7-52) 12/07/18 07:32 Triglycerides 141 mg/dL 12/06/18 07:31 Cholesterol 194 mg/dL 12/06/18 07:31 LDL Cholesterol 140 mg/dL 12/06/18 07:31 Vital Signs 12/09/18 12/09/18 12/09/18 15:03 15:04 16:50 Respiratory 16 16 16 Rate 12/09/18 12/09/18 12/09/18 18:35 20:22 21:04 Respiratory 16 16 16 Rate 12/09/18 12/09/18 12/09/18 21:06 23:00 23:33 Respiratory 16 16 16 Rate 12/10/18 12/10/18 12/10/18 01:05 01:30 03:05 Respiratory 18 16 16 Rate 12/10/18 12/10/18 12/10/18 04:15 05:20 06:15 Respiratory 16 18 16 Rate 12/10/18 12/10/18 12/10/18 07:00 08:04 08:05 Respiratory 16 16 16 Rate 12/10/18 12/10/18 12/10/18 08:09 11:11 11:49 Respiratory 16 16 16 Rate 12/10/18 11:50 Respiratory 16 Rate Continued Medication Management: Continue Outpt Medication Medications: Current Medications Acetaminophen (Tylenol Tab*) 650 mg PO Q4H PRN PRN Reason: PAIN or TEMP > 101 F Last Admin: 12/08/18 22:58 Dose: 650 mg Al Hydrox/Mg Hydrox/Simethicone (Maalox Plus*) 30 ml PO Q4H PRN PRN Reason: INDIGESTION Dextrose (D50w Syringe 50 Ml*) 12.5 gm IV PUSH .FOR FS < 60 - SS PRN PRN Reason: FS < 60 Dextrose (D50w Syringe 50 Ml*) 12.5 gm IV PUSH .FOR FS < 60 - SS PRN PRN Reason: FS < 60 Duloxetine HCl (Cymbalta Cap*) 30 mg PO DAILY [facility] Last Admin: 12/10/18 08:04 Dose: 30 mg Gabapentin (Neurontin Cap(*)) 300 mg PO TID [facility] Last Admin: 12/10/18 08:04 Dose: 300 mg Insulin Glargine (Lantus(*)) 5 units SUBCUT BEDTIME [facility] Last Admin: 12/09/18 20:28 Dose: Not Given Insulin Human Lispro (Humalog*) 0 units SUBCUT AC [facility]; Protocol Last Admin: 12/10/18 08:08 Dose: 6 units Insulin Human Lispro (Humalog*) 0 units SUBCUT ACHS [facility]; Protocol Last Admin: 12/10/18 08:07 Dose: 2 units Lubiprostone (Amitiza (Nf)) 24 mcg PO DAILY [facility] Last Admin: 12/10/18 08:04 Dose: 24 mcg Morphine Sulfate (Ms Contin(*)) 60 mg PO Q8H [facility] Last Admin: 12/10/18 07:00 Dose: 60 mg Multivitamins (Theragran Tab*) 1 tab PO DAILY [facility] Last Admin: 12/10/18 08:04 Dose: 1 tab Naloxone HCl (Narcan Nasal [place]) 4 mg INTRANASAL .REPEAT Q2M to Q3M PRN PRN Reason: BEHAVIOR Ondansetron HCl (Zofran Tab*) 4 mg PO Q6H PRN PRN Reason: NAUSEA Last Admin: 12/10/18 08:06 Dose: 4 mg Oxycodone HCl (Roxycodone Tab*) 10 mg PO Q4H PRN PRN Reason: PAIN Last Admin: 12/10/18 08:05 Dose: 10 mg Polyethylene Glycol/Electrolytes (Miralax*) 17 gm PO BID [facility] Last Admin: 12/10/18 11:49 Dose: Not Given Polyvinyl Alcohol (Polyvinyl Alcohol 1.4% Opth*) 1 drop BOTH EYES TID PRN PRN Reason: DRY EYES Last Admin: 12/10/18 08:07 Dose: 1 drop Senna (Senokot Tab*) 1 tab PO BEDTIME PRN PRN Reason: CONSTIPATION Last Admin: 12/08/18 20:24 Dose: 1 tab Tramadol HCl (Ultram*) 50 mg PO TID PRN PRN Reason: PAIN - BREAKTHROUGH Last Admin: 12/10/18 11:11 Dose: 50 mg - Discharge Plan Discharge Plan: Inpatient Hospitalization
[2018-12-10] MEDS: busPIRone TAB* 10 MG PO SCH ×2 (14:47→20:26)
[2018-12-10] MEDS: Insulin GLARGINE(*) 1 UNITS UNIT SUBCUT SCH (20:25)
[2018-12-10] MEDS: Acetaminophen TAB* 325 MG PO PRN (21:22)
[2018-12-11] MEDS: oxyCODONE TAB* 5 MG TAB PO PRN ×4 (02:22→20:37)
[2018-12-11] MEDS: traMADol TAB* 50 MG PO PRN ×2 (03:28→22:29)
[2018-12-11] MEDS: Acetaminophen TAB* 325 MG PO PRN ×2 (03:28→08:24)
[2018-12-11] MEDS: Gabapentin CAP(*) 300 MG PO SCH ×3 (07:38→20:34)
[2018-12-11] MEDS: busPIRone TAB* 10 MG PO SCH ×2 (07:38→20:34)
[2018-12-11] MEDS: Vitamin THERAPEUTIC TAB PO SCH (07:39)
[2018-12-11] MEDS: DULoxetine DR CAP* 30 MG CAP.DR PO SCH (07:39)
[2018-12-11] MEDS: Morphine TAB Extended Release (*) 30 MG TAB.ER PO SCH ×3 (07:39→23:25)
[2018-12-11] MEDS: CMCS:Lubiprostone 24 MCG CAP (NF) PO SCH (07:40)
[2018-12-11] MEDS: Insulin LISPRO* 1 UNITS UNIT SUBCUT SCH ×7 (08:20→20:32)
[2018-12-11] MEDS: Ondansetron TAB* 4 MG PO PRN ×2 (08:25→16:37)
[2018-12-11] MEDS: Polyethylene Glycol 3350* 17 GM PACKET PO SCH ×3 (10:08→22:30)
--- NOTE | 2018-12-11 15:52 | PN ---
Subjective - Subjective Date of Service: 12/11/18 Service Type: 64213 Hosp care 35 min high complexity Subjective: Nursing Report: Patient was visible on unit, no chemical restraints or PRNs. Slept overnight without incident. Attending group activities. CC: "Fine Patient was seen and evaluated today. The patient and his family had a family meeting today. Both his mother and father are going on vacation and unable to look after him. He reported not being unable to trust himself to be safe if he is at home alone. Parents confirm that firearms and medications are locked up but go on to say that there are many other dangerous objects in the house that they feel uncomfortable about. They are unsure and feel uncomfortable with having him at home without nursing care available. He is tolerating medications well. Objective - General Observations Appearance: Disheveled Appears Stated Age: Yes Stature: Thin Posture: WNL Eye Contact: Average Behavior/Activity: WNL - Interaction Observations Attitude Towards Examiner: Cooperative Affect: Blunted Speech Pattern/Tone: Clear Thought Process: Coherent, Loose Associations Perception: WNL Thought Content: WNL, Self-Deprecatory Thought Process: Lethality: Passive Wish Hallucination Type: Denies Delusion Type: Denies - Cognitive Function Orientation: A&O x 4 Level of Consciousness: Awake Cognition: WNL Judgment Within Normal Limits: No Ability to Make Reasonable Decisions: Mildly Impaired - Medication Compliance Cooperative with Inpatient Medication Regimen: Yes - Group Participation Participates in Group Activities: Yes Assessment - Assessment Clinical Impression: 48 year old male with history of depression and multiple medical co- morbidities came to the hospital with suicidal ideation with plan to overdose on insulin. Plan - Plan Treatment Plan: Name: TAZ REYNOLDS Birthdate: 1970 [id number] #Q30 minute observation. With staff pass, Comfort room and computer privileges # Voluntary admission. The patient requires inpatient admission at this time to assure safety, receive treatment and work toward stabilization. # [id number] BID for anxiety #Medicine consult placed to manage medical issues # Unable to secure a safe discharge disposition # Family meeting with parents who state that going home on his own will not be safe, and is in a isolated area. # Collaboration with Social Work to assist with disposition and after care. Sodium 136 mmol/L (135-145) 12/07/18 07:32 Potassium 4.1 mmol/L (3.5-5.0) 12/07/18 07:32 BUN 30 mg/dL (6-24) H 12/07/18 07:32 Creatinine 0.60 mg/dL (0.67-1.17) L 12/07/18 07:32 Hemoglobin A1c 7.5 % (4.0-5.6) H 12/06/18 07:31 Calcium 8.3 mg/dL (8.6-10.3) L 12/07/18 07:32 AST 39 U/L (13-39) 12/07/18 07:32 ALT 30 U/L (7-52) 12/07/18 07:32 Triglycerides 141 mg/dL 12/06/18 07:31 Cholesterol 194 mg/dL 12/06/18 07:31 LDL Cholesterol 140 mg/dL 12/06/18 07:31 Vital Signs Temp Pulse Resp BP Pulse Ox 98.1 F 69 16 101/67 100 12/11/18 07:58 12/11/18 07:58 12/11/18 15:37 12/11/18 07:58 12/11/18 07:58 Continued Medication Management: Continue Outpt Medication Medications: Current Medications Acetaminophen (Tylenol Tab*) 650 mg PO Q4H PRN PRN Reason: PAIN or TEMP > 101 F Last Admin: 12/11/18 08:24 Dose: 650 mg Al Hydrox/Mg Hydrox/Simethicone (Maalox Plus*) 30 ml PO Q4H PRN PRN Reason: INDIGESTION Buspirone HCl (Buspar Tab*) 10 mg PO BID [facility] Last Admin: 12/11/18 07:38 Dose: 10 mg Dextrose (D50w Syringe 50 Ml*) 12.5 gm IV PUSH .FOR FS < 60 - SS PRN PRN Reason: FS < 60 Duloxetine HCl (Cymbalta Cap*) 30 mg PO DAILY [facility] Last Admin: 12/11/18 07:39 Dose: 30 mg Gabapentin (Neurontin Cap(*)) 300 mg PO TID [facility] Last Admin: 12/11/18 13:21 Dose: 300 mg Insulin Glargine (Lantus(*)) 5 units SUBCUT BEDTIME [facility] Last Admin: 12/10/18 20:25 Dose: Not Given Insulin Human Lispro (Humalog*) 0 units SUBCUT AC [facility]; Protocol Last Admin: 12/11/18 12:09 Dose: 2 units Insulin Human Lispro (Humalog*) 0 units SUBCUT ACHS [facility]; Protocol Last Admin: 12/11/18 12:09 Dose: 4 units Lubiprostone (Amitiza (Nf)) 24 mcg PO DAILY [facility] Last Admin: 12/11/18 07:40 Dose: 24 mcg Morphine Sulfate (Ms Contin(*)) 60 mg PO Q8H [facility] Last Admin: 12/11/18 15:35 Dose: 60 mg Multivitamins (Theragran Tab*) 1 tab PO DAILY [facility] Last Admin: 12/11/18 07:39 Dose: 1 tab Naloxone HCl (Narcan Nasal [place]) 4 mg INTRANASAL .REPEAT Q2M to Q3M PRN PRN Reason: BEHAVIOR Ondansetron HCl (Zofran Tab*) 4 mg PO Q6H PRN PRN Reason: NAUSEA Last Admin: 12/11/18 08:25 Dose: 4 mg Oxycodone HCl (Roxycodone Tab*) 10 mg PO Q4H PRN PRN Reason: PAIN Last Admin: 12/11/18 13:21 Dose: 10 mg Polyethylene Glycol/Electrolytes (Miralax*) 17 gm PO BID [facility] Last Admin: 12/11/18 10:08 Dose: 17 gm Polyvinyl Alcohol (Polyvinyl Alcohol 1.4% Opth*) 1 drop BOTH EYES TID PRN PRN Reason: DRY EYES Last Admin: 12/10/18 08:07 Dose: 1 drop Senna (Senokot Tab*) 1 tab PO BEDTIME PRN PRN Reason: CONSTIPATION Last Admin: 12/08/18 20:24 Dose: 1 tab Tramadol HCl (Ultram*) 50 mg PO TID PRN PRN Reason: PAIN - BREAKTHROUGH Last Admin: 12/11/18 03:28 Dose: 50 mg - Discharge Plan Discharge Plan: Inpatient Hospitalization
[2018-12-11] MEDS: Insulin GLARGINE(*) 1 UNITS UNIT SUBCUT SCH (20:30)
[2018-12-11] MEDS: Artificial Tears* 15 ML BTL BOTH EYES PRN (23:25)
[2018-12-12] MEDS: oxyCODONE TAB* 5 MG TAB PO PRN ×6 (01:05→21:49)
[2018-12-12] MEDS: traMADol TAB* 50 MG PO PRN ×2 (03:10→20:25)
[2018-12-12] MEDS: Morphine TAB Extended Release (*) 30 MG TAB.ER PO SCH ×3 (07:00→23:16)
[2018-12-12] MEDS: Ondansetron TAB* 4 MG PO PRN ×2 (07:34→17:12)
[2018-12-12] MEDS: Insulin LISPRO* 1 UNITS UNIT SUBCUT SCH ×7 (08:16→20:28)
[2018-12-12] MEDS: Vitamin THERAPEUTIC TAB PO SCH (08:23)
[2018-12-12] MEDS: DULoxetine DR CAP* 30 MG CAP.DR PO SCH (08:24)
[2018-12-12] MEDS: Gabapentin CAP(*) 300 MG PO SCH ×3 (08:24→20:25)
[2018-12-12] MEDS: CMCS:Lubiprostone 24 MCG CAP (NF) PO SCH (08:24)
[2018-12-12] MEDS: busPIRone TAB* 10 MG PO SCH ×2 (08:24→20:25)
[2018-12-12] MEDS: Polyethylene Glycol 3350* 17 GM PACKET PO SCH ×2 (10:22→21:48)
--- NOTE | 2018-12-12 10:22 | PN ---
Subjective - Subjective Date of Service: 12/12/18 Service Type: 76011 Hosp care 35 min high complexity Subjective: Nursing Report: Patient was visible on unit, no chemical restraints or PRNs. Slept overnight without incident. Attending group activities. CC: "Fine Patient was seen and evaluated today. The patient was informed about having a visiting nurse evaluation on Monday and is happy about that. He reported having many appointments after he leaves the hospital and worries how he is going to attend to them. He is tolerating medications well. Patient reported feeling less anxious and attributes it adding a new medication. Objective - General Observations Appearance: Neat Appears Stated Age: Yes Stature: Thin Posture: Slumped Eye Contact: Average Behavior/Activity: WNL - Interaction Observations Attitude Towards Examiner: Cooperative Stated Mood: Anxious Affect: Blunted Speech Pattern/Tone: Clear Thought Process: Coherent Perception: WNL Thought Content: WNL Hallucination Type: None Delusion Type: None - Cognitive Function Orientation: A&O x 4 Level of Consciousness: Awake Cognition: WNL Estimated Intelligence: Normal - Medication Compliance Cooperative with Inpatient Medication Regimen: Yes - Group Participation Participates in Group Activities: Yes Assessment - Assessment Clinical Impression: 48 year old male with history of depression and multiple medical co- morbidities came to the hospital with suicidal ideation with plan to overdose on insulin. Plan - Plan Treatment Plan: Name: TAZ REYNOLDS Birthdate: 1970 [id number] #Q30 minute observation. With staff pass, Comfort room and computer privileges # Voluntary admission. The patient requires inpatient admission at this time to assure safety, receive treatment and work toward stabilization. #Medicine consult placed to manage medical issues # Patient to be discharged tomorrow at 6pm and have visiting nurse evaluation early Monday morning. # Parents informed of plan and are in agreement # Collaboration with Social Work to assist with disposition and after care. Sodium 136 mmol/L (135-145) 12/07/18 07:32 Potassium 4.1 mmol/L (3.5-5.0) 12/07/18 07:32 BUN 30 mg/dL (6-24) H 12/07/18 07:32 Creatinine 0.60 mg/dL (0.67-1.17) L 12/07/18 07:32 Hemoglobin A1c 7.5 % (4.0-5.6) H 12/06/18 07:31 Calcium 8.3 mg/dL (8.6-10.3) L 12/07/18 07:32 AST 39 U/L (13-39) 12/07/18 07:32 ALT 30 U/L (7-52) 12/07/18 07:32 Triglycerides 141 mg/dL 12/06/18 07:31 Cholesterol 194 mg/dL 12/06/18 07:31 LDL Cholesterol 140 mg/dL 12/06/18 07:31 Vital Signs Temp Pulse Resp BP Pulse Ox 98.5 F 72 16 117/81 100 12/12/18 09:41 12/12/18 09:41 12/12/18 10:24 12/12/18 09:41 12/12/18 09:41 Continued Medication Management: Continue Outpt Medication Medications: Current Medications Acetaminophen (Tylenol Tab*) 650 mg PO Q4H PRN PRN Reason: PAIN or TEMP > 101 F Last Admin: 12/11/18 08:24 Dose: 650 mg Al Hydrox/Mg Hydrox/Simethicone (Maalox Plus*) 30 ml PO Q4H PRN PRN Reason: INDIGESTION Buspirone HCl (Buspar Tab*) 10 mg PO BID [facility] Last Admin: 12/12/18 08:24 Dose: 10 mg Dextrose (D50w Syringe 50 Ml*) 12.5 gm IV PUSH .FOR FS < 60 - SS PRN PRN Reason: FS < 60 Duloxetine HCl (Cymbalta Cap*) 30 mg PO DAILY [facility] Last Admin: 12/12/18 08:24 Dose: 30 mg Gabapentin (Neurontin Cap(*)) 300 mg PO TID [facility] Last Admin: 12/12/18 08:24 Dose: 300 mg Insulin Glargine (Lantus(*)) 5 units SUBCUT BEDTIME [facility] Last Admin: 12/11/18 20:30 Dose: Not Given Insulin Human Lispro (Humalog*) 0 units SUBCUT AC [facility]; Protocol Last Admin: 12/12/18 08:21 Dose: 7 units Insulin Human Lispro (Humalog*) 0 units SUBCUT ACHS [facility]; Protocol Last Admin: 12/12/18 08:16 Dose: Not Given Lubiprostone (Amitiza (Nf)) 24 mcg PO DAILY [facility] Last Admin: 12/12/18 08:24 Dose: 24 mcg Morphine Sulfate (Ms Contin(*)) 60 mg PO Q8H [facility] Last Admin: 12/12/18 07:00 Dose: 60 mg Multivitamins (Theragran Tab*) 1 tab PO DAILY [facility] Last Admin: 12/12/18 08:23 Dose: 1 tab Naloxone HCl (Narcan Nasal [place]) 4 mg INTRANASAL .REPEAT Q2M to Q3M PRN PRN Reason: BEHAVIOR Ondansetron HCl (Zofran Tab*) 4 mg PO Q6H PRN PRN Reason: NAUSEA Last Admin: 12/12/18 07:34 Dose: 4 mg Oxycodone HCl (Roxycodone Tab*) 10 mg PO Q4H PRN PRN Reason: PAIN Last Admin: 12/12/18 09:49 Dose: 10 mg Polyethylene Glycol/Electrolytes (Miralax*) 17 gm PO BID [facility] Last Admin: 12/11/18 22:30 Dose: 17 gm Polyvinyl Alcohol (Polyvinyl Alcohol 1.4% Opth*) 1 drop BOTH EYES TID PRN PRN Reason: DRY EYES Last Admin: 12/11/18 23:25 Dose: 1 drop Senna (Senokot Tab*) 1 tab PO BEDTIME PRN PRN Reason: CONSTIPATION Last Admin: 12/08/18 20:24 Dose: 1 tab Tramadol HCl (Ultram*) 50 mg PO TID PRN PRN Reason: PAIN - BREAKTHROUGH Last Admin: 12/12/18 03:10 Dose: 50 mg - Discharge Plan Discharge Plan: Inpatient Hospitalization
[2018-12-12] MEDS: Artificial Tears* 15 ML BTL BOTH EYES PRN ×3 (12:18→20:25)
[2018-12-12] MEDS: Acetaminophen TAB* 325 MG PO PRN (20:25)
[2018-12-12] MEDS: Insulin GLARGINE(*) 1 UNITS UNIT SUBCUT SCH (20:28)
[2018-12-13] MEDS: oxyCODONE TAB* 5 MG TAB PO PRN ×4 (02:41→17:29)
[2018-12-13] MEDS: Acetaminophen TAB* 325 MG PO PRN ×2 (04:13→12:21)
[2018-12-13] MEDS: traMADol TAB* 50 MG PO PRN ×2 (04:13→12:21)
[2018-12-13] MEDS: Morphine TAB Extended Release (*) 30 MG TAB.ER PO SCH ×2 (06:54→14:42)
[2018-12-13] MEDS: Ondansetron TAB* 4 MG PO PRN (06:55)
[2018-12-13] MEDS: Insulin LISPRO* 1 UNITS UNIT SUBCUT SCH ×6 (08:28→17:32)
[2018-12-13] MEDS: Vitamin THERAPEUTIC TAB PO SCH (08:32)
[2018-12-13] MEDS: Gabapentin CAP(*) 300 MG PO SCH ×2 (08:32→14:41)
[2018-12-13] MEDS: DULoxetine DR CAP* 30 MG CAP.DR PO SCH (08:32)
[2018-12-13] MEDS: Artificial Tears* 15 ML BTL BOTH EYES PRN (08:33)
[2018-12-13] MEDS: CMCS:Lubiprostone 24 MCG CAP (NF) PO SCH (08:34)
[2018-12-13] MEDS: busPIRone TAB* 10 MG PO SCH (08:35)
[2018-12-13] MEDS: Polyethylene Glycol 3350* 17 GM PACKET PO SCH (08:35)
[2018-12-13 09:03] VITALS: BP 122/81
[2018-12-13] MEDS ORDERED: DULoxetine DR CAP* 20 MG CAP.DR PO ONE (10:32)
--- NOTE | 2018-12-13 10:35 | DS ---
Subjective - Subjective Service Types: [address] [facility] Day Mgmt complex over 30 min Discharge Date: 12/13/18 Subjective: CC: " I do feel better" Patient reported that he still has pain although he feels better, and has less anxiety. He feels better about going home knowing that nursing care staff will visit him. He denied plans to end his life. He wants to live for his grandson and to get better. He was Interacting with peers during breakfast. Justification for admission: Immediate Safety. CC "I wanted to " The patient thought about ending his life by overdosing on insulin. He reported since August he has stopped working due to experiencing extreme pain thoughtful the day and has been increasingly depressed. He reported that by killing himself he wouldnt have to experience pain anymore. He reports that the pain is throughout his entire body. He reported reasons to live include seeing his grandson. He told his outpatient doctor about his thoughts of suicide and was told to come to the hospital. He denied access to firearms or stockpiles of medications. The patient denied homicidal ideation intent or plan. The patient denied auditory and/ or visual hallucinations. MDD He reported feeling depressed or having diminished interest in hobbies or interests which were present in the past , for most of the time, lasting more than 2 weeks. He reported having crying spells , feeling empty inside, feelings of hopelessness or worthless. He reported loss of energy or lack of motivation to complete tasks. He reported decreased concentration. Bipolar Denied symptoms of lindsey such as having many ideas at once. Denied increased talkativeness where no one can interrupt. 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 He reported having big business ideas but said that he will never see them through because they take too long. He reported having mood swings. Denied feeling irritable most of the time while having an persistent abundance of energy most of the day without the use of energy drinks, stimulants, or recreational drug use. Denied an increase in intensity in goal directed activities. Denied having the decreased need to sleep for days , having prolonged elevated heighted mood , or feeling on top of the world. Denied impulsive risky sexual encounters. Denied spending money recklessly , going on spending sprees wiping out savings. Denied impulsively traveling out of town or country, having super mchugh, and unrealistic wealth or fame. Anxiety Denied having symptoms of anxiety such as having times where heart feels that it is beating out of chest , sweaty palms, or shallow breathing. Denied having uncomfortable or intrusive thoughts. Denied feeling restless, high strung, or worrying too much most of the time. Psychosis Does not endorse hearing things that other people do not hear or seeing things other people do not see. Denied feeling that TV is making references. Denied feeling that people are spying , following , or reading their thoughts. Phobias: Patient denied having excessive fear of a particular thing or situation. Eating disorders: Patient denied having excessive eating habits or feelings of guilt after eating. Denied repeated episodes of self induced vomiting after eating. PTSD Denied flashbacks, nightmares and avoidance of a prior traumatic event. PAST PSYCHIATRIC HISTORY: Prior Diagnosis : Major Depressive Disorder History of past Psychiatric Hospitalizations: No prior psychiatric admission. History of past suicide/homicide attempts : 1 past suicide attempts by overdosing with insulin 5 years ago. Denied past homicidal incidents. Outpatient follow-up: No current psychiatric provider Medications: Past trials of medications include cymbalta 30mg daily, On Chantix since August 2018 stopped using 2 weeks ago. Guardianship: None. FAMILY HISTORY: - Suicide: Sister attempted suicide without lethal outcome. - Mental illness: Sister has history of depression - Substance abuse: Denied substance abuse among family members. SUBSTANCE ABUSE HISTORY: Denied using alcohol, heroin and cocaine other illicit substances. Denied abusing pills not prescribed . Denied past Substance abuse treatment. - EtOH: Denied using recently or in the past. - Tobacco: Quit August 2018 after 30 years of 1PPD - Cannabis: Denied using recently or in the past. - Heroin: Denied using recently or in the past. - Cocaine: Denied using recently or in the past. - Substance abuse treatment: Denied past substance abuse treatment SOCIAL HISTORY: - Childhood: Denied History of physical or sexual abuse Born in [place] and has 3 children. He is and lives with his mother. 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 - Legal history: Denied - service history: Denied PAST MEDICAL HISTORY: DM 1 ( previously Dx with DM II) , Neuropathy s/p gastric bypass surgery, polyneuritis - Allergies: Denied drug or other allergies. Physical Exam: Please see ED note Mental Status Exam on Admission APPEARANCE : 48 year old who appears stated age. Ambulates with a walker. Patient is not malodourous, and appears to have fair hygiene and grooming. BEHAVIOR: Cooperative , calm EYE CONTACT: Fair PSYCHOMOTOR ACTIVITY: No psychomotor agitation or retardation. MOVEMENTS: No abnormal movements observed. SPEECH : Normal rate, rhythm, volume and tone. MOOD : "Sad " AFFECT : Type is depressed, Range is restricted , Mood congruent , labile THOUGHT PROCESS: formulated and organized in a logical, linear goal directed manner. No flight of ideas , neologism (made up words) , perseveration , tangential , loose associations , or circumstantiality. THOUGHT CONTENT: no delusions, preoccupations, obsessions, phobias or preoccupations. PERCEPTION: No current auditory or visual hallucinations. Doesnt appear to be responding to internal cues. No evidence of depersonalization , de-realization, or illusions SUICIDALITY Recent suicidal ideation HOMICIDALITY Denied homicidal ideation, intent or plan. Insight/judgment: Poor insight and judgment ORIENTATION: Oriented to self, location, and time. Diagnosis on Admission: Major Depressive Disorder Diagnosis on Discharge: Major Depressive Disorder, in partial remission. Chronic pain disorder. Condition at the time of discharge: At the time of discharge patient showed improvement of sleep and appetite. The patient was not a danger to self or others. The patient denied suicidal ideation , intent or plan. The patient denied homicidal targets, ideation, intent or plan. This patient participated in psychosocial rehabilitation and gained some insight into problems. The patient gained insight into mental illness, triggers, and treatment. The patient took medication as prescribed. The patient denied side effects of medication and objective signs of side effects were not evident. Therapy Resources were offered to the patient. Patient was given a supply of prescriptions at the time of discharge. The patient plans to attend follow up care with the follow up arrangements that were discussed and put in place. Patient was asked to keep appointments as scheduled, take medication as prescribed, have routine follow up care with their primary care physician and refrain from any use of alcohol or drugs. Objective - General Observations Appearance: Neat Appears Stated Age: Yes Stature: Thin Posture: WNL Eye Contact: Average Behavior/Activity: WNL - Interaction Observations Attitude Towards Examiner: Cooperative Stated Mood: Euthymic Affect: Full Speech Pattern/Tone: Clear Thought Process: Coherent Perception: WNL Thought Content: WNL Hallucination Type: None Delusion Type: None - Cognitive Function Orientation: A&O x 4 Level of Consciousness: Awake Cognition: WNL Estimated Intelligence: Normal - Medication Compliance Cooperative with Inpatient Medication Regimen: Yes - Group Participation Participates in Group Activities: Yes Treatment Course & Assessment Clinical Course & Impression: Hospital course part A: 48 year old male with history of depression and multiple medical co-morbidities came to the hospital with suicidal ideation with plan to overdose on insulin. Hospital course part B: Labs ordered included CBC, CMP, UDS, TSH, HBA1c, TSH, EKG Toxicology screen, Urine analysis, and lipid profile. Labs were reviewed and did not require the need for further evaluation. Vital signs were monitored during the course of admission. The patient was admitted to the adult behavioral unit and placed on 15 minute check for safety. At a later time the patient was on Q30 minute observation and staff pass privileges. With those limits being extended , there were no occurrence of behavioral incidents. The patient did well on the unit and went to groups. Interacted with peers had adequate sleep and regular appetite. Tolerated medication changes without side effects. Group therapy and services were offered. The risks, benefits, and alternative treatment options were discussed as well as of the risks of refusing treatment. Treatment associated risks discussed. After this discussion and made an acknowledgement of this understanding. Follow up care appointments were put in place for follow up care within 7 days of discharge. Improvements in patient from the time of admission include: Improved affect, sleep and decrease in anxiety. No longer suicidal and no longer having feelings of hopelessness. The patient expressed readiness for discharge home. The patient presents with a broader range of affect, and the absence of depressed mood, delusions, perceptual disturbances. The patient denied suicidal and or homicidal ideation intent or plan. Overall, the patient responded well to inpatient treatment as evidenced by their report of strengthening of coping mechanisms, reduced distress, and more positive outlook on circumstances. Of note there was an improvement of recognizing how emotional state can effect mood and behavior. Safety precautions were put in place which included involving the patient and their family to closely monitor for changes in mental state. In addition, implementing follow up care, screening for the need to remove/securing firearms , weapons and stockpile of medications. Patient/ family instructed to immediately call 911 should any safety concerns arise. QC CHEMIST was checked no indications of prescription abuse or diversion were present. Patient advised of the lethality and dangerousness of combining medications with pain medications and/ or with alcohol and acknowledged this understanding. Patient was not given opiate pain medications upon discharge. The type and strength was verified through QC CHEMIST and he was continued on them during the hospital course without incident. He was continued on insulin for diabetes during the hospital course. He reported being satisfied with the care while at the hospital and plans to keep in contact with family. Patient plans to have Nursing care manage medications. The patient was advised of the 24 hour / 7 days a week availability of the emergency room and to call 911 in the event of an emergency such as being suicidal and/ or homicidal. The patient was informed of the contact information for [facility], Suicide Prevention and Crisis Services, National Suicide Prevention Lifeline, [facility], Alcoholics Anonymous, and [facility]. Medications started included buspar 10mg BID and increasing cymbalta to 50mg daily. Patient advised of dangerousness of taking more pain medications than prescribed. Zofran was continued for nausea. Prior Authorization was faxed and completed for cymbalta. Family meeting took place before discharge. His parents plan to go on vacation for 2 weeks. Nursing care services and assistance from quaker members plan to come over and help. His family plan to get medication lock box and remove medications and weapons from home. Consults included to medicine to manage medical issues. Patient and his family in agreement with discharge. He will be picked up by his friend who also picked up his prescriptions before discharge. Patient will be discharged to home with nursing care services who plan to come [place] at 830am. Follow up appointment at [facility] 12/17/18 at 1030am and PCP at 230pm on 12/17/18 Patient informed of follow up appointment times. See more details for follow of care in discharge plan. Risk factors: Multiple medical issues, , history of depression, prior suicide attempt Protective factors: Currently no suicidal ideation, intent or plan. Jew. Has children and wants to live for grandson. Has support of community support. Currently no feelings of hopelessness, not in an occupation of social isolation , doesnt have access to firearms. Doesnt have command hallucinations and or psychotic features at this time. No history of substance abuse. No history of alcohol abuse. Not a anniversary of a loss of a loved one. No changes in relationship status, housing, job, or school. Currently future orientated. Patient engaged in treatment and compliant with medication. Vital Signs Temp Pulse Resp BP Pulse Ox 97.3 F 69 16 122/81 100 12/13/18 07:44 12/13/18 07:44 12/13/18 13:16 12/13/18 07:44 12/13/18 07:44 Laboratory Results - last 24 hr 12/12/18 12/12/18 12/13/18 16:34 20:09 07:30 POC Glucose (mg/dL) 115 H 77 123 H 12/13/18 12:11 POC Glucose (mg/dL) 178 H Merits Inpatient Hospitalization: No Clear for Discharge: Adequate Clinical Respons Discharge Planning - Discharge Planning Discharge Plan: Outpatient Follow Up Outpatient Program: [facility] Recommendations for Continuing Care: Medication Management Medications: Current Medications Acetaminophen (Tylenol Tab*) 650 mg PO Q4H PRN PRN Reason: PAIN or TEMP > 101 F Last Admin: 12/13/18 04:13 Dose: 650 mg Al Hydrox/Mg Hydrox/Simethicone (Maalox Plus*) 30 ml PO Q4H PRN PRN Reason: INDIGESTION Buspirone HCl (Buspar Tab*) 10 mg PO BID [facility] Last Admin: 12/13/18 08:35 Dose: 10 mg Dextrose (D50w Syringe 50 Ml*) 12.5 gm IV PUSH .FOR FS < 60 - SS PRN PRN Reason: FS < 60 Duloxetine HCl (Cymbalta Cap*) 50 mg PO DAILY [facility] Duloxetine HCl (Cymbalta Cap*) 20 mg PO ONCE ONE Stop: 12/13/18 10:33 Gabapentin (Neurontin Cap(*)) 300 mg PO TID [facility] Last Admin: 12/13/18 08:32 Dose: 300 mg Insulin Glargine (Lantus(*)) 5 units SUBCUT BEDTIME [facility] Last Admin: 12/12/18 20:28 Dose: Not Given Insulin Human Lispro (Humalog*) 0 units SUBCUT AC [facility]; Protocol Last Admin: 12/13/18 08:33 Dose: 8 units Insulin Human Lispro (Humalog*) 0 units SUBCUT ACHS [facility]; Protocol Last Admin: 12/13/18 08:28 Dose: Not Given Lubiprostone (Amitiza (Nf)) 24 mcg PO DAILY [facility] Last Admin: 12/13/18 08:34 Dose: 24 mcg Morphine Sulfate (Ms Contin(*)) 60 mg PO Q8H [facility] Last Admin: 12/13/18 06:54 Dose: 60 mg Multivitamins (Theragran Tab*) 1 tab PO DAILY [facility] Last Admin: 12/13/18 08:32 Dose: 1 tab Naloxone HCl (Narcan Nasal [place]) 4 mg INTRANASAL .REPEAT Q2M to Q3M PRN PRN Reason: BEHAVIOR Ondansetron HCl (Zofran Tab*) 4 mg PO Q6H PRN PRN Reason: NAUSEA Last Admin: 12/13/18 06:55 Dose: 4 mg Oxycodone HCl (Roxycodone Tab*) 10 mg PO Q4H PRN PRN Reason: PAIN Last Admin: 12/13/18 06:54 Dose: 10 mg Polyethylene Glycol/Electrolytes (Miralax*) 17 gm PO BID [facility] Last Admin: 12/13/18 08:35 Dose: Not Given Polyvinyl Alcohol (Polyvinyl Alcohol 1.4% Opth*) 1 drop BOTH EYES TID PRN PRN Reason: DRY EYES Last Admin: 12/13/18 08:33 Dose: 1 drop Senna (Senokot Tab*) 1 tab PO BEDTIME PRN PRN Reason: CONSTIPATION Last Admin: 12/08/18 20:24 Dose: 1 tab Tramadol HCl (Ultram*) 50 mg PO TID PRN PRN Reason: PAIN - BREAKTHROUGH Last Admin: 12/13/18 04:13 Dose: 50 mg Discharge Planning: Prescriptions provided for discharge [x] Yes [] No Follow up care details as per social work arrangements. Patient response to discharge plan: [] eager for discharge [x] agreeable with discharge plan [] ambivalent about discharge [] disagrees with discharge today
[2018-12-14] MEDS ORDERED: DULoxetine DR CAP* 30 MG CAP.DR PO SCH (09:00)
[2018-12-14] MEDS ORDERED: DULoxetine DR CAP* 20 MG CAP.DR PO SCH (09:00)
== END 2018-12-13 18:15 | disposition home health service (06) | DRG 754 ==
LOC: ED 19:08 → BSU 12-05 03:30
PROVIDERS: ADMIT Psychiatry & Neurology Psychiatry; ATTEND Psychiatry & Neurology Psychiatry
DX: F32.9 Major depressive disorder, single episode, unspecified (principal); R45.851 Suicidal ideations; I10 Essential (primary) hypertension; E78.5 Hyperlipidemia, unspecified; R94.31 Abnormal electrocardiogram [ECG] [EKG]; N31.9 Neuromuscular dysfunction of bladder, unspecified; K59.09 Other constipation; G89.29 Other chronic pain; F41.9 Anxiety disorder, unspecified; G47.30 Sleep apnea, unspecified; K58.9 Irritable bowel syndrome, unspecified; N40.0 Benign prostatic hyperplasia without lower urinary tract symptoms; M19.90 Unspecified osteoarthritis, unspecified site; G43.909 Migraine, unspecified, not intractable, without status migrainosus; E10.36 Type 1 diabetes mellitus with diabetic cataract; E10.40 Type 1 diabetes mellitus with diabetic neuropathy, unspecified; Z90.49 Acquired absence of other specified parts of digestive tract; Z98.84 Bariatric surgery status; Z79.4 Long term (current) use of insulin; Z81.8 Family history of other mental and behavioral disorders; Z82.49 Family history of ischemic heart disease and other diseases of the circulatory system; Z87.891 Personal history of nicotine dependence; Z83.3 Family history of diabetes mellitus
CPT/HCPCS: 36415; 80053; 80061; 80307; 80320; 80329; 81003; 81015; 83036; 84443; 85025; 87086; 93005; 99222; 99231; 99233; 99238; 99285; A9270-GY; G0480

== ENCOUNTER 2018-12-14 16:08 | Inpatient (IN) | payer OTHER ==
--- NOTE | 2018-12-14 16:28 | ED ---
Psychiatric Complaint - HPI Summary HPI Summary: A 48 y/o M who is afebrile with PMHx: polyneuritis presents to ED with c/o SI with plan today. He was going to OD on his insulin, but called a friend. He has been severely depressed since about Jul/Aug due to his worsening health issues. He feels overwhelmed by the constant pain he is in and feels it is never ending. Pt was seen in [facility] on 12/05/18, admitted to [facility] and released yesterday, 12/13/18. He takes morphine, oxycodone, tramadol and gabapentin for pain to no relief. His last dose of Cymbalta was yesterday when he left [facility] , because his insurance won't cover it. He sees a neurologist in [place], [place]. - History Of Current Complaint Chief Complaint: EDMentalHealth Time Seen by Provider: 12/14/18 16:20 Hx Obtained From: Patient Onset/Duration: Lasting Weeks - depression, Still Present Timing: Constant Severity Initially: Moderate Severity Currently: Severe Character: Depressed Related History: Positive For: Prior Psychiatric Issues Has Suicidal: Reports: Thoughts, With A Plan - Allergies/Home Medications Allergies/Adverse Reactions: Allergies Allergy/AdvReac Type Severity Reaction Status Date / Time No Known Allergies Allergy Verified 12/14/18 16:15 PMH/Surg Hx/FS Hx/Imm Hx Previously Healthy: No Endocrine/Hematology History: Reports: Hx Diabetes - type 1 Denies: Hx Thyroid Disease Cardiovascular History: Reports: Hx Cardiomegaly - ?, Hx Hypertension - past/ also has had low bp Denies: Hx Congestive Heart Failure, Hx Pacemaker/ICD, Other Cardiovascular Problems/Disorders Respiratory History: Reports: Hx Sleep Apnea - HISTORY OF WEIGHT LOSS AND NO LONGER HAS OR USES BIPAP, Other Respiratory Problems/Disorders Denies: Hx Asthma, Hx Chronic Obstructive Pulmonary Disease (COPD) GI History: Reports: Hx Gall Bladder Disease - gall bladder removal, Hx Irritable Bowel - mild Denies: Hx Ulcer, Other GI Disorders History: Reports: Hx Benign Prostatic Hyperplasia - TURP 2014, Other Problems/Disorders - incontinence SELF CATH Q 6 HOUR Denies: Hx Kidney Stones, Hx Renal Disease Musculoskeletal History: Reports: Hx Arthritis, Hx Back Problems - back pain, Other Musculoskeletal History - muscle atroophy Sensory History: Reports: Hx Cataracts - kailee, Hx Contacts or Glasses - eyeglasses Denies: Hx Hearing Aid Opthamlomology History: Reports: Hx Cataracts - kailee, Hx Contacts or Glasses - eyeglasses Neurological History: Reports: Hx Headaches, Hx Migraine, Hx Nerve Disease - abd pain, hips r/t neuropaty/ polyneuritis, Hx Seizures - hypoglycemic seizures , Other Neuro Impairments/Disorders - OCCASIONAL NUMB FINGERS DUE TO LYMPH NODE SWELLING BILATERAL ARMPITS Denies: Hx Transient Ischemic Attacks (TIA) Psychiatric History: Reports: Hx Anxiety - had, pt denies currently, no longer takes meds, Hx Depression - OVER ILLNESS, Hx Suicide Attempt - 5 years ago Denies: Hx Eating Disorder, Hx Panic Disorder, Hx Inpatient Treatment, Hx Community Mental Health Tx, Hx of Violent Episodes Against Others - Surgical History Surgery Procedure, Year, and Place: GALL BLADDER REMOVED,2007. bariatric surgery (April 2013). Nasal Surgery, 1999. Knee surgery left , 1981. Tonsillectomy, 1998. [id number]. removed some soft palette of mouth, 1998. TURP, 2015, [place] Hx Anesthesia Reactions: No - Immunization History Date of Tetanus Vaccine: unknown Date of Influenza Vaccine: 2013 Infectious Disease History: No Infectious Disease History: Denies: Hx Hepatitis, Hx Human Immunodeficiency Virus (HIV), Traveled Outside the [place] in Last 30 Days - Family History Known Family History: Negative: Respiratory Disease, Seizure Disorder - Social History Occupation: Unemployed - OTHER Lives: Alone Alcohol Use: None Hx Substance Use: Yes Substance Use Type: Reports: Marijuana Substance Use Comment - Amount & Last Used: medical Hx Tobacco Use: Yes Smoking Status (MU): Former Smoker Type: Cigarettes Amount Used/How Often: on and off for years Have You Smoked in the Last Year: No Review of Systems Negative: Fever Psychological: Other - pos: SI with plan Positive: Depressed All Other Systems Reviewed And Are Negative: Yes Physical Exam - Summary Physical Exam Summary: VITAL SIGNS: Reviewed. GENERAL: Patient is a well-developed and nourished MALE who is lying comfortable in the stretcher. Patient is not in any acute respiratory distress. HEAD AND FACE: No signs of trauma. No ecchymosis, hematomas or skull depressions. No sinus tenderness. EYES: PERRLA, EOMI x 2, No injected conjunctiva, no nystagmus. EARS: Hearing grossly intact. Ear canals and tympanic membranes are within normal limits. MOUTH: Oropharynx within normal limits. NECK: Supple, trachea is midline, no adenopathy, no JVD, no carotid bruit, no c- spine tenderness, neck with full ROM. CHEST: Symmetric, no tenderness at palpation LUNGS: Clear to auscultation bilaterally. No wheezing or crackles. CVS: Regular rate and rhythm, S1 and S2 present, no murmurs or gallops appreciated. ABDOMEN: Soft, non-tender. No signs of distention. No rebound, no guarding, and no masses palpated. Bowel sounds are normal. : Indwelling melchor catheter in place. EXTREMITIES: FROM in all major joints, no edema, no cyanosis or clubbing. NEURO: Alert and oriented x 3. No acute neurological deficits. Speech is normal and follows commands. SKIN: Dry and warm PSYCH: Depressed, crying, sad, thoughts of worthlessness. No homicidal thoughts or plan. No signs of psychosis or pressure speech. No tangential speech. Triage Information Reviewed: Yes Vital Signs On Initial Exam: Initial Vitals Temp Pulse Resp BP Pulse Ox 98.2 F 102 20 189/118 96 12/14/18 16:11 12/14/18 16:11 12/14/18 16:11 12/14/18 16:11 12/14/18 16:11 Vital Signs Reviewed: Yes Diagnostics - Vital Signs Vital Signs Temp Pulse Resp BP Pulse Ox 12/14/18 16:11 98.2 F 102 20 189/118 96 - Laboratory Result Diagrams: 12/14/18 17:46 12/14/18 17:46 Lab Statement: Any lab studies that have been ordered have been reviewed, and results considered in the medical decision making process. Course/Dx - Course Course Of Treatment: Patient is medically clear for MHE at 1630. Patient will be signed out to Dr. Licona at shift change pending MHE. - Differential Dx/Clinical Impression Differential Diagnosis/HQI/PQRI: Positive: Depression Provider Diagnosis: Depression Discharge - Sign-Out/Discharge Documenting (check all that apply): Sign-Out Patient Signing out patient TO: Farhan Licona - pending MHE Patient Received Moderate/Deep Sedation with Procedure: No - Discharge Plan Condition: Stable Referrals: Sanford Jamison DO [Primary Care Provider] - - Billing Disposition and Condition Condition: STABLE - Attestation Statements Document Initiated by Scriblis: Yes Documenting Scribe: Karina Grove Provider For Whom Han is Documenting (Include Credential): Dr. Keith Ames MD Scribe Attestation: I, Karina Grove, scribed for Dr. Keith Ames MD on 12/14/18 at 1844. Scribe Documentation Reviewed: Yes Provider Attestation: The documentation as recorded by the han, Karina Grove accurately reflects the service I personally performed and the decisions made by me, Dr. Keith Ames MD Status of Scribe Document: Viewed
[2018-12-14 18:04] LABS: ABS Eosinophils 0.2 10^3/ul (0-0.6); ABS Monocytes 0.5 10^3/ul (0-0.8); ABS Neutrophils 5.1 10^3/ul (1.5-7.7); Eosinophil % 3.2 %; Hematocrit 33 % (42-52); Hemoglobin 10.9 g/dL (14.0-18.0); Lymphocyte % 14.9 %; Mean Corpuscular HGB Conc 33 g/dL (31-36); Mean Corpuscular Hemoglobin 26 pg (27-31); Mean Corpuscular Volume 79 fL (80-94); Mean Platelet Volume 7.3 fL (7.4-10.4); Platelet Count 307 10^3/uL (150-450); Red Blood Count 4.22 10^6 /uL (4.18-5.48); Red Cell Distribution Width 14 % (10.5-15); White Blood Count 6.9 10^3/uL (3.5-10.8)
[2018-12-14 18:16] LABS: ALT 46 U/L (7-52); AST 36 U/L (13-39); Albumin 2.9 g/dL (3.2-5.2); Albumin/Globulin Ratio 1.2 (1-3); Alkaline Phosphatase 181 U/L (34-104); Anion Gap 3 mmol/L (2-11); BUN/Creatinine Ratio 40.9 (8-20); Blood Urea Nitrogen 27 mg/dL (6-24); CO2 Carbon Dioxide 31 mmol/L (22-32); Calcium 8.2 mg/dL (8.6-10.3); Chloride 105 mmol/L (101-111); EGFR African American 156.5 (>60); EGFR Non-African American 129.4 (>60); Globulin 2.5 g/dL (2-4); Glucose 293 mg/dL (70-100); Potassium 4.3 mmol/L (3.5-5.0); Sodium 139 mmol/L (135-145); Total Protein 5.4 g/dL (6.4-8.9)
[2018-12-14 18:18] LABS: Alcohol < 10 mg/dL (<10); Salicylate < 2.50 mg/dL (<30)
[2018-12-14 18:31] LABS: TSH (Thyroid Stimulating Horm) 0.66 mcIU/mL (0.34-5.60)
[2018-12-14] MEDS ORDERED: LORazepam TAB(*) 1 MG PO ONE (18:34)
[2018-12-14 18:36] LABS: Acetaminophen < 15 mcg/mL
--- NOTE | 2018-12-14 19:07 | ED ---
Progress - Progress Note Progress Note: Patient was signed out from Dr. Ames at end of shift, pending MHE. Per Dr. Serra, patient will be place in MHU hold. Patient is not to be given any pain medication apart from tylenol or motrin. Course/Dx - Course Course Of Treatment: Patient is medically clear for MHE at 1630. Patient will be signed out to Dr. Licona at shift change pending MHE. Per Dr. Serra, patient will be place in MHU hold. Patient is not to be given any pain medication apart from tylenol or motrin. Patient will be signed out to Dr. Meza at end of shift, pending MHU hold placement. - Diagnoses Provider Diagnoses: Depression Discharge - Sign-Out/Discharge Documenting (check all that apply): Sign-Out Patient Signing out patient TO: Namita Meza Receiving patient FROM: Keith Ames Patient Received Moderate/Deep Sedation with Procedure: No - Discharge Plan Condition: Stable Disposition: ADMITTED TO [facility] Referrals: Sanford Jamison DO [Primary Care Provider] - - Attestation Statements Document Initiated by Scribe: Yes Documenting Scribe: Orlando Darden Provider For Whom Scribe is Documenting (Include Credential): Farhan Licona MD Scribe Attestation: Orlando Norris, susied for Farhan Licona MD on 12/15/18 at 0627. Status of Scribe Document: Ready
[2018-12-14] MEDS ORDERED: Insulin LISPRO* 1 UNITS UNIT SUBCUT ONE (19:44)
[2018-12-14] MEDS ORDERED: Dextrose 50% Syringe 50 ML* 25 GM/50 ML SYRINGE IV PUSH PRN (19:44)
[2018-12-14] MEDS ORDERED: Insulin GLARGINE(*) 1 UNITS UNIT SUBCUT ONE (19:45)
[2018-12-14 21:17] LABS: Urine Appearance Cloudy; Urine Bacteria Absent (Absent); Urine Bilirubin Negative (Negative); Urine Blood 1+ (Negative); Urine Color Yellow; Urine Glucose 2+(150 mg/dL) (Negative); Urine Ketones Trace (Negative); Urine Nitrite Negative (Negative); Urine Protein 2+(100 mg/dL) (Negative); Urine Red Blood Cell 3+(>10/hpf) (Absent); Urine Specific Gravity 1.018 (1.010-1.030); Urine Urobilinogen Negative (Negative); Urine White Blood Cell 1+(6-10/hpf) (Absent)
[2018-12-14 21:32] LABS: Urine Benzodiazepine Screen None Detected (None Detect); Urine Opiates Screen Presumptive Positive (None Detect)
[2018-12-14] MEDS: Gabapentin CAP(*) 300 MG PO SCH (22:28)
[2018-12-14] MEDS ORDERED: Ibuprofen TAB* 400 MG PO ONE (22:32)
[2018-12-14] MEDS: busPIRone TAB* 15 MG PO SCH (23:13)
[2018-12-15] MEDS ORDERED: Acetaminophen TAB* 325 MG PO ONE (07:20)
--- NOTE | 2018-12-15 07:21 | PN ---
ED Flex Patient Progress Note Date of Service: 12/14/18 Subjective: This is a 48 year-old M who is pending admission to [facility] / transfer to another psychiatric facility / discharge to home / or being observed secondary to depression, SI. Pt. recently dc from [facility]. Pt. examined in room 16 at 0715. He is resting comfortably. Pt. states he is in 9/10 chronic pain. In chart review it's noted that Dr. Kraus would not like pt. have narcotic pain medication. Morning meds were ordered by Dr. Licona including gabapentin. Will give a dose of tylenol Objective: Vitals: Most recent vital signs documented below. General NAD, Alert and oriented x3. Laboratory: Current laboratory results documented below. Assessment: Depression Plan: Pending MHE. Vital Signs Temp Pulse Resp BP Pulse Ox 98.6 F 73 18 178/110 95 12/14/18 23:12 12/14/18 23:12 12/14/18 23:12 12/14/18 23:12 12/14/18 23:12 Lab Results - Entire Visit 12/14/18 12/14/18 12/14/18 20:01 17:46 17:46 WBC 6.9 RBC 4.22 Hgb 10.9 L Hct 33 L MCV 79 L MCH 26 L MCHC 33 RDW 14 Plt Count 307 MPV 7.3 L Neut % (Auto) 74.0 Lymph % (Auto) 14.9 [place] % (Auto) 7.4 Eos % (Auto) 3.2 Baso % (Auto) 0.5 Absolute Neuts (auto) 5.1 Absolute Lymphs (auto) 1.0 Absolute Monos (auto) 0.5 Absolute Eos (auto) 0.2 Absolute Basos (auto) 0.0 Absolute Nucleated RBC 0.0 Nucleated RBC % 0.0 Sodium 139 Potassium 4.3 Chloride 105 Carbon Dioxide 31 Anion Gap 3 BUN 27 H Creatinine 0.66 L Est GFR ( Amer) 156.5 Est GFR (Non-Af Amer) 129.4 BUN/Creatinine Ratio 40.9 H Glucose 293 H POC Glucose (mg/dL) 266 H Calcium 8.2 L Total Bilirubin 0.30 AST 36 ALT 46 Alkaline Phosphatase 181 H Total Protein 5.4 L Albumin 2.9 L Globulin 2.5 Albumin/Globulin Ratio 1.2 TSH 0.66 Urine Color Urine Appearance Urine pH Ur Specific Happy Urine Protein Urine Ketones Urine Blood Urine Nitrate Urine Bilirubin Urine Urobilinogen Ur Leukocyte Esterase Urine WBC (Auto) Urine RBC (Auto) Calcium Oxalate Crystal Urine Bacteria Hyaline Casts Urine Glucose Salicylates < 2.50 Urine Opiates Screen Acetaminophen < 15 Ur Barbiturates Screen Ur Phencyclidine Scrn Ur Amphetamines Screen U Benzodiazepines Scrn Urine Cocaine Screen U Cannabinoids Screen Serum Alcohol < 10 12/14/18 12/14/18 17:37 17:37 WBC RBC Hgb Hct MCV MCH MCHC RDW Plt Count MPV Neut % (Auto) Lymph % (Auto) [place] % (Auto) Eos % (Auto) Baso % (Auto) Absolute Neuts (auto) Absolute Lymphs (auto) Absolute Monos (auto) Absolute Eos (auto) Absolute Basos (auto) Absolute Nucleated RBC Nucleated RBC % Sodium Potassium Chloride Carbon Dioxide Anion Gap BUN Creatinine Est GFR ( Amer) Est GFR (Non-Af Amer) BUN/Creatinine Ratio Glucose POC Glucose (mg/dL) Calcium Total Bilirubin AST ALT Alkaline Phosphatase Total Protein Albumin Globulin Albumin/Globulin Ratio TSH Urine Color Yellow Urine Appearance Cloudy Urine pH 7.0 Ur Specific Happy 1.018 Urine Protein 2+(100 mg/dl) A Urine Ketones Trace A Urine Blood 1+ A Urine Nitrate Negative Urine Bilirubin Negative Urine Urobilinogen Negative Ur Leukocyte Esterase Negative Urine WBC (Auto) 1+(6-10/hpf) A Urine RBC (Auto) 3+(>10/hpf) A Calcium Oxalate Crystal Present A Urine Bacteria Absent Hyaline Casts Present A Urine Glucose 2+(150 mg/dl) A Salicylates Urine Opiates Screen Presumptive positive A Acetaminophen Ur Barbiturates Screen None detected Ur Phencyclidine Scrn None detected Ur Amphetamines Screen None detected U Benzodiazepines Scrn None detected Urine Cocaine Screen None detected U Cannabinoids Screen Presumptive positive A Serum Alcohol
[2018-12-15] MEDS: Gabapentin CAP(*) 300 MG PO SCH ×3 (08:15→21:07)
[2018-12-15] MEDS ORDERED: busPIRone TAB* 5 MG PO ONE (08:26)
[2018-12-15] MEDS ORDERED: LORazepam TAB(*) 1 MG PO ONE (08:32)
[2018-12-15] MEDS ORDERED: Ibuprofen TAB* 600 MG PO ONE (08:33)
[2018-12-15] MEDS ORDERED: Ondansetron ODT TAB* 4 MG PO ONE (08:33)
--- NOTE | 2018-12-15 08:33 | ED ---
Progress - Progress Note Progress Note: Patient was signed out from Dr. Liocna at end of shift, 0700 12/15/18, pending MHE. Patient is a 48 year old male presenting to [facility] with a psychiatric complaint. He states he was going to overdose on his insulin when he called a friend to prevent him from doing so. The patient states he is experiencing a burning pain from the chest down and is requesting medication, but Dr. Serra had left a note advising no narcotics for pain, only acetaminophen or ibuprofen. Per Dr. Serra, patient will be placed in MHU hold. Patient states that he takes medical marijuana, and did not bring that with him. Patient sees Dr. Adams, endocrinology, for his diabetes, and he states he switched his designation from Type II to Type I within the last month because his pancreas no longer secretes any insulin. Insulin GLARGINE(*) [Lantus(*)] 12 units SUBCUT QPM 09/13/18 [History Confirmed 12/14/18] Insulin LISPRO* [HumaLOG*] 1 unit SUBCUT SEE INSTRUCTIONS 09/13/18 [History Confirmed 12/14/18] oxyCODONE TAB* [Roxycodone TAB 5 mg*] 10 mg PO Q4H PRN tab 09/22/18 [Rx Confirmed 12/14/18] Polyethylene Glycol 3350* [Miralax*] 17 gm PO BID 09/27/18 [History Confirmed ] Morphine Sulfate [Ms Contin] 60 mg PO TID 11/07/18 [History Confirmed 12/14/18] Tramadol HCl 50 mg PO Q8H PRN 11/07/18 [History Confirmed 12/14/18] Dextran 70/Hypromellose [Artificial Tears] 1 drop BOTH EYES TID PRN 12/04/18 [ History Confirmed 12/14/18] Gabapentin CAP(*) [Neurontin 300 CAP(*)] 300 mg PO TID 12/04/18 [History Confirmed 12/14/18] Lubiprostone [Amitiza] 24 mg PO DAILY 12/04/18 [History Confirmed 12/14/18] Multivitamin [Multivitamins] 1 tab PO DAILY 12/04/18 [History Confirmed 12/14/18 ] DULoxetine CAP* [Cymbalta CAP*] 50 mg PO DAILY #14 cap. 12/13/18 [Rx Confirmed 12/14/18] Ondansetron HCl [Zofran] 4 mg PO Q12HR PRN #28 tablet 12/13/18 [Rx Confirmed 10/30] busPIRone TAB* [Buspar TAB*] 10 mg PO BID #14 tab 12/13/18 [Rx Confirmed ] Physical Exam Appearance: Ill-appearing, moderate to severe pain distress, well-nourished Skin: Warm, color reflects adequate perfusion, dry Head: Normal Head/Face inspection, atraumatic Eyes: Conjunctiva clear ENT: Normal inspection Neck: Supple, no nodes, no JVD Respiratory: Lungs clear, normal breath sounds, no respiratory distress Cardio: RRR, No murmur, pulses normal, brisk capillary refill Abdomen: Soft, nontender Bowel sounds: Present Musculoskeletal: Strength Intact/ROM intact, no calf tenderness, no edema. Psychological: continues to voice SI, no HI Neuro: Alert, muscle tone normal, no focal deficit - Consult/PCP Time Called: 06:10 Re-Evaluation - Re-Evaluation First Eval Re-Evaluation Time: 08:25 Change: Unchanged Comment: Pt c/o severe pain, requests more than ibuprofen or acetaminophen. Advised this is against Dr. Serra's plan for patient care. Pt advised that he must eat, or it will be considered suicidal behavior, because he is a DM Type I and stating he does not want to eat. Pt's glucose checked, and usual insulin given based on carbs counted in his breakfast. Pt states he will eat cereal. Course/Dx - Course Course Of Treatment: Patient was signed out from Dr. Licona at end of shift, 0700, 12/15/18 pending MHE. Patient is a 48 year old male presenting to [facility] with a psychiatric complaint. He states he was going to overdose on his insulin when he called a friend to prevent him from doing so. Spoke with Darlyn Nails in flex unit at 0849 and said she will see where they are with the MHE process. Labs reveal Hgb 12.1 L, Hct 37 L, MCV 79 L, MCH 26 L, MPV 7.3L, VBG pH 7.54 H,( no diabetic ketoacidosis) VBG pCO2 35L, VBG HCO3 29.2 H, VBG O2 Saturation 48.6 L, VBG Base Excess 7.2 H, Creatinine 0.58 L, BUN/ Creatinine Ratio 41.4, Glucose 208 H (in poor control, but not hyperosmolar coma), Alkaline Phosphatase 193 H, Total Protein 5.9 L, Albumin 3.0 L. Anion gap normal. Buspirone, lorazepam, insulin, ibuprofen and ondansetron given by this provider. Per Jesu Serra will admit the patient. He will be a 9.39, involuntary admission with a diagnosis of depression, suicidal ideation, Type I DM in poor control. - Diagnoses Provider Diagnoses: Depression, Suicidal ideation, Poor control type I diabetes mellitus, Hypertension, poor control - Provider Notifications Discussed Care Of Patient With: Pura Serra - dorothy Nails RN, admit .39 status Time Discussed With Above Provider: 11:40 Instructed by Provider To: Admit As Inpatient Discharge - Sign-Out/Discharge Documenting (check all that apply): Patient Departure - Admission - Discharge Plan Condition: Improved Disposition: PSYCHIATRIC FACILITY-[facility] - Billing Disposition and Condition Condition: IMPROVED Disposition: Psychiatric Facility [facility] - Attestation Statements Document Initiated by Dillon: Yes Documenting Scribe: Marcos Sheehan Provider For Whom Dillon is Documenting (Include Credential): Namita Meza MD Scribe Attestation: Marcos Norris scribed for Namita Meza MD on 12/24/18 at 1719. Scribe Documentation Reviewed: Yes Provider Attestation: The documentation as recorded by the Marcos short accurately reflects the service I personally performed and the decisions made by , Namita Meza MD Status of Scribe Document: Viewed
[2018-12-15] MEDS ORDERED: Insulin LISPRO* 1 UNITS UNIT SUBCUT ONE (08:34)
[2018-12-15] MEDS ORDERED: Dextrose 50% Syringe 50 ML* 25 GM/50 ML SYRINGE IV PUSH PRN (08:34)
[2018-12-15] MEDS ORDERED: DULoxetine DR CAP* 20 MG CAP.DR PO SCH (09:00)
[2018-12-15 09:08] LABS: ABS Eosinophils 0.3 10^3/ul (0-0.6); ABS Lymphocytes 1.6 10^3/ul (1.0-4.8); ABS Monocytes 0.6 10^3/ul (0-0.8); ABS Neutrophils 3.7 10^3/ul (1.5-7.7); Eosinophil % 4.3 %; Hematocrit 37 % (42-52); Hemoglobin 12.1 g/dL (14.0-18.0); Lymphocyte % 26.5 %; Mean Corpuscular HGB Conc 33 g/dL (31-36); Mean Corpuscular Hemoglobin 26 pg (27-31); Mean Corpuscular Volume 79 fL (80-94); Mean Platelet Volume 7.3 fL (7.4-10.4); Platelet Count 324 10^3/uL (150-450); Red Blood Count 4.71 10^6 /uL (4.18-5.48); Red Cell Distribution Width 15 % (10.5-15); White Blood Count 6.2 10^3/uL (3.5-10.8)
[2018-12-15 09:28] LABS: BUN/Creatinine Ratio 41.4 (8-20); Calcium 8.7 mg/dL (8.6-10.3); EGFR African American 181.7 (>60); EGFR Non-African American 150.2 (>60); Globulin 2.9 g/dL (2-4); Total Bilirubin 0.4 mg/dL (0.2-1.0); Total Protein 5.9 g/dL (6.4-8.9)
[2018-12-15] MEDS ORDERED: Al Hydrox/Mg Hydrox/Simet LIQ* 30 ML UDC PO PRN (14:19)
[2018-12-15] MEDS ORDERED: Senna TAB PO PRN (16:28)
[2018-12-15] MEDS ORDERED: Polyethylene Glycol 3350* 17 GM PACKET PO PRN (16:28)
[2018-12-15] MEDS: Morphine TAB Extended Release (*) 30 MG TAB.ER PO SCH (16:52)
[2018-12-15] MEDS: Acetaminophen TAB* 325 MG PO PRN (16:53)
[2018-12-15] MEDS: busPIRone TAB* 15 MG PO SCH (17:09)
[2018-12-15] MEDS: Insulin LISPRO* 1 UNITS UNIT SUBCUT SCH (17:42)
--- NOTE | 2018-12-15 18:40 | HP ---
HISTORY AND PHYSICAL: DATE OF ADMISSION: 12/15/18 IDENTIFYING DATA: Jordan is a 48-year-old physically disabled male who was discharged couple of days ago from the behavioral science unit here, came back to the emergency room complaining of not having enough support system in the house, and having suicidal ideation with a plan to overdose on his insulin. CHIEF COMPLAINT: "If I'm sent home from the emergency department, I'll kill myself." HISTORY OF PRESENT ILLNESS: This patient with history of another hospitalization on 12/05/18 with similar circumstances was discharged on to be back a day after of his discharge due to not having enough services at home. He was supposed to receive services from visiting nursing as well as yazdanism services. We are not sure how much of that materialized when he was discharged. However, he was not satisfied with whatever he had, so he decided to come back to the hospital claiming that he was suicidal and if sent home, he will overdose on his insulin and kill himself. Reportedly, his parents are on a vacation trip out of town and will not be back until 12/19/18 and he is unwilling to live by himself in his parents' house. During today's evaluation, he denies any issues with his mood, thoughts, or perception. He was found sitting by the nurses' station and by the medication room window looking for his pain medication. Earlier during the day, hospitalist came to evaluate him and prescribed him his medical and pain medications. When he found out the schedule of pain medication, he was not happy; however, he was okay to receive Motrin and/or Tylenol for breakthrough pain. PAST PSYCHIATRIC HISTORY AND OTHER PSYCHOSOCIAL HISTORY: [place] refer to Dr. Bateman's history and physical done on 12/05/18. Also refer to emergency room assessment for his physical health issue. Since the hospitalist came and evaluated him and did a physical on him, I will defer doing any physical today and please refer to that physical done by the hospitalist as well. MENTAL STATUS EXAMINATION: Jordan is average height, sick-looking male , who is walking with the help of a walker. He is alert and oriented to time, place, and person. Makes good contact. Speech is soft, slow, but goal directed and logical. Describes his mood as "okay." Observed affect is somewhat restricted. Denies any hallucination, delusions/paranoia, current suicidal or homicidal ideations. Intelligence appears to be average as evidenced by his educational background, fund of knowledge, and vocabulary. Memory functions are intact in all spheres. Insight and judgement appears to be poor. SUMMARY: This 48-year-old physically disabled male who was just discharged home, within a day or 2 came back to the emergency room requesting hospitalization because he thinks if he is alone home, he will overdose on his insulin and commit suicide. DIAGNOSTIC IMPRESSION: Mental Health Diagnoses: 1. Adjustment disorder with depressed mood. 2. History of major depressive disorder. 3. Pain disorder. Physical Health Diagnoses: 1. Type 1 diabetes mellitus. 2. Peripheral neuropathy. 3. Status post gastric bypass surgery. ALLERGIES: NKDA. TREATMENT RECOMMENDATIONS: Jordan will remain hospitalized on the behavioral science unit for his safety only. While on the unit, his code status will remain full. Supportive milieu, individual and group therapy will be initiated. As mentioned earlier, hospitalist has already started him on his complex medical medications and I will renew all his psychotropic medications that were prescribed during his discharge. Rest of the psychotropic medications will be deferred to his assigned psychiatrist, which I do not see any reason to change. [id number]/[facility] #: [id number] SANYA
--- NOTE | 2018-12-15 20:10 | CONS ---
CC: Dr. Safnord Jamison; Dr. Coles CONSULTATION REPORT: DATE OF CONSULT: 12/15/18 REQUESTING PHYSICIAN: Dr. Pura Serra. PRIMARY CARE PROVIDER: Dr. Sanford Jamison. PAIN MANAGEMENT DOCTOR: Dr. Coles. REASON FOR CONSULT: Management of pain and diabetes. HISTORY OF PRESENT ILLNESS: Mr. Jackson is a 48-year-old man with a history of diabetes; insulin-dependent, polyneuritis complicated by neurogenic bladder and chronic pain, major depressive disorder, obesity; status post Young-en-Y bypass in 2012 with weight loss more than 200 pounds, who presented to the hospital with suicidal ideation and worsening depression 1 day after discharge from hospitalization for similar diagnosis. Psychiatry asked medical service to see the patient in consultation for management of chronic medical issues. PAST MEDICAL HISTORY: 1. 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 The patient now has a chronic Lindsay catheter placed and he is following with Dr. Garcia of urology. 2. Type 2 diabetes, on insulin. The patient reports his pancreas no long produces insulin and therefore, oral agents are not helpful. 3. Major depressive disorder with multiple hospitalizations for suicidal ideation. 4. Elevated LFTs, likely ZEPEDA. HOME MEDICATIONS: 1. Morphine 60 mg every 8 hours. 2. Oxycodone 10 mg every 4 hours as needed for breakthrough pain. 3. Buspirone 10 mg twice a day. 4. Tramadol 50 mg every 8 hours as needed for pain. 5. Gabapentin 300 mg 3 times a day. 6. Duloxetine 15 mg daily. 7. MiraLAX 17 g twice a day. 8. Ondansetron 4 mg every 12 hours as needed for nausea. 9. Lubiprostone 24 mcg daily. 10. Insulin glargine 12 units nightly. 11. Insulin lispro sliding scale. I-STOP confirmed. ALLERGIES: No known drug allergies. FAMILY HISTORY: Mother with TIA and breast cancer. Father with diabetes and pancreatitis. SOCIAL HISTORY: The patient quit tobacco use in July of last year. Denies alcohol or other drugs. His surrogate decision maker is his mother. He lives at his parents' home while they are on vacation. REVIEW OF SYSTEMS: The patient reports chronic pain in his lower extremities is severe as his morphine has been held since he has been admitted. He also continues to be constipated as his bowel regimen has been held since admission. He reports feelings of depression with active suicidal ideation. He also report new lower extremity edema without associated SOB/PND/MARS. Otherwise, 10- point review of systems is negative. PHYSICAL EXAM: Afebrile, heart rate 70s, blood pressure 136/88, respiratory rate 16, oxygen saturation 97% on room air. In general, pleasant man, appears older than his stated age, in no acute distress, A and O x3. The patient noted to be yawning frequently. HEENT: Positive for lacrimation and rhinorrhea. Pupils not dilated, equal and reactive to light. Moist mucous membranes. Neck : No JVD. Heart: Regular rate and rhythm. No murmurs, gallops, or rubs. Lungs: Clear to auscultation bilaterally. Abdomen: Soft, nontender, nondistended. Extremities with 2+ pitting edema bilaterally midway up shins, symmetric diameter. DIAGNOSTIC STUDIES/LAB DATA: Labs reviewed and significant for A1c of 7.5. Hemoglobin 12.1, at baseline microcytic. VBG with mild alkalosis with pCO2 of 35. BUN and creatinine 24/0.58. Albumin 3.0. UA significant for 2+ protein, calcium oxalate crystals, hyaline casts, negative leuk esterase, and negative nitrites. ASSESSMENT AND PLAN: A 48-year-old man with polyneuritis, NOS complicated by chronic lower extremity pain; on opiates complicated by constipation, diabetes on insulin, major depressive disorder presenting with suicidal ideation; on psychiatry. Medicine consulted for treatment of diabetes and chronic pain. 1. For diabetes, we will order glargine 5 units nightly as the patient has been reducing his outpatient glargine dose at home. We will order insulin sliding scale with carb counting and fingersticks 4 times a day. He should remain on a carb- controlled diet. 2. Lower extremity edema. The patient states that this is new as of last week. He states that he took water pills at least 10 years ago for lower extremity edema, but has not had any recurrence and has not recently been on water pills. We will order transthoracic echo as well as 24-hour urine protein collection given concern for nephrotic syndrome. We will also order fasting lipids in the morning. This could be from kidney disease in the setting of history of uncontrolled diabetes, and his UA shows significant protein. 3. Chronic pain. Pt seems to be actively withdrawing from opioids. We will restart the patient's home regimen. I-STOP verified. Morphine 60 mg every 8 hours as well as oxycodone 10 every 4 hours as needed for pain. He is to remain on gabapentin and duloxetine. Aggressive bowel regimen. 4. Microcytic anemia. The patient has history of Young-en-Y gastric bypass and is at increased risk for micronutrient deficiencies. It appears that his labs in the past were consistent with iron deficiency. We will start the patient on ferrous sulfate. 5. Constipation. We will restart the patient's bowel regimen with senna and MiraLAX. He may require methylnaltrexone, which has been used on prior visits given his high opioid intake. 6. Obesity resolved after gastric bypass. Patient is high risk for nutrient deficiencies and has a history of low zinc and fat-soluble vitamins. Will order supplements. Nutrition consult may help. Thank you so much for allowing our service to participate in the care of this patient. We will continue to follow as diagnostic studies are still pending. [id number]/[facility] #: [id number] SANYA
[2018-12-15] MEDS: Insulin GLARGINE(*) 1 UNITS UNIT SUBCUT SCH (21:07)
[2018-12-15] MEDS: busPIRone TAB* 10 MG PO SCH (21:07)
[2018-12-15] MEDS: oxyCODONE TAB* 5 MG TAB PO PRN (21:08)
[2018-12-16] MEDS: Morphine TAB Extended Release (*) 30 MG TAB.ER PO SCH ×3 (01:02→17:18)
[2018-12-16] MEDS: Acetaminophen TAB* 325 MG PO PRN ×2 (03:08→10:55)
[2018-12-16] MEDS: oxyCODONE TAB* 5 MG TAB PO PRN ×3 (05:23→21:01)
[2018-12-16] MEDS: busPIRone TAB* 10 MG PO SCH ×2 (08:21→21:00)
[2018-12-16] MEDS: DULoxetine DR CAP* 20 MG CAP.DR PO SCH (08:22)
[2018-12-16] MEDS: DULoxetine DR CAP* 30 MG CAP.DR PO SCH (08:22)
[2018-12-16] MEDS: Gabapentin CAP(*) 300 MG PO SCH ×3 (08:22→21:00)
[2018-12-16] MEDS: Ferrous Sulfate TAB* 325 MG PO SCH (08:23)
[2018-12-16] MEDS: Vitamin THERAPEUTIC TAB PO SCH (08:23)
[2018-12-16] MEDS: Ascorbic Acid TAB* 500 MG PO SCH (08:23)
[2018-12-16] MEDS: Insulin LISPRO* 1 UNITS UNIT SUBCUT SCH ×5 (08:36→21:07)
[2018-12-16] MEDS ORDERED: Dextrose 50% Syringe 50 ML* 25 GM/50 ML SYRINGE IV PUSH PRN (12:58)
[2018-12-16] MEDS ORDERED: Ondansetron TAB* 4 MG PO PRN (15:50)
[2018-12-16] MEDS: Insulin GLARGINE(*) 1 UNITS UNIT SUBCUT SCH (21:05)
[2018-12-17] MEDS: Morphine TAB Extended Release (*) 30 MG TAB.ER PO SCH ×3 (01:11→16:56)
[2018-12-17] MEDS: diPHENhydraMINE PO* 25 MG PO PRN (01:11)
[2018-12-17] MEDS: Acetaminophen TAB* 325 MG PO PRN ×2 (03:20→23:20)
[2018-12-17] MEDS: oxyCODONE TAB* 5 MG TAB PO PRN ×3 (05:12→20:16)
[2018-12-17] MEDS ORDERED: Naloxone Nasal Spray* 4 MG/0.1 ML NASAL.SPR INTRANASAL PRN (08:01)
--- NOTE | 2018-12-17 08:11 | PN ---
Subjective - Subjective Date of Service: 12/17/18 Service Type: 62807 Hosp care 35 min high complexity Subjective: Nursing Report: Patient was visible on unit, no chemical restraints or PRNs. Slept overnight without incident. He is attending group activities. CC: "I was going to overdose" Patient was seen and evaluated in the common room. He reported returning to the [facility] after he saw his insulin and planed to overdose. Before doing so he called a friend to tell him and was brought to the hospital. He continues to feel suicidal. 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 He reported having an adequate appetite and sleep. The patient reports attending and participating in day groups. Per nursing no behavioral issues or overnight events reported. Patient reported that he is tolerating medications without side effects. Objective - General Observations Appears Stated Age: Yes Stature: Thin Posture: WNL Eye Contact: Average Behavior/Activity: WNL - Interaction Observations Attitude Towards Examiner: Cooperative Stated Mood: Dysphoric Affect: Blunted Speech Pattern/Tone: Clear Thought Process: Coherent Thought Content: Depressive, Self-Deprecatory Thought Process: Lethality: Suicidal Planning Hallucination Type: None Delusion Type: None - Cognitive Function Orientation: A&O x 4 Level of Consciousness: Awake Cognition: WNL Judgment Within Normal Limits: No - Medication Compliance Cooperative with Inpatient Medication Regimen: Yes - Group Participation Participates in Group Activities: Yes Assessment - Assessment Merits Inpatient Hospitalization: For Immediate Safety Clinical Impression: 48 year old male with suicidal ideation of overdosing on insulin to end his life. Plan - Plan Treatment Plan: Name: TAZ REYNOLDS Birthdate: 1970 [id number] #Q30 Staff pass, computer privileges. #Increase buspar to 15mg BID # Increase cymbalta to 60mg daily #Physical therapy consult for lower extremity strength building, patient uses walker to ambulate. Vital Signs Temp Pulse Resp BP Pulse Ox 98.6 F 78 16 134/90 100 12/17/18 07:54 12/17/18 07:54 12/17/18 12:37 12/17/18 07:54 12/17/18 07:54 VBG pH 7.54 (7.32-7.43) H 12/15/18 08:58 Sodium 138 mmol/L (135-145) 05/04/19 08:47 Potassium 4.0 mmol/L (3.5-5.0) 12/15/18 08:47 BUN 24 mg/dL (6-24) 12/15/18 08:47 Creatinine 0.58 mg/dL (0.67-1.17) L 12/15/18 08:47 Hemoglobin A1c 7.5 % (4.0-5.6) H 12/15/18 08:58 Calcium 8.7 mg/dL (8.6-10.3) 12/15/18 08:47 AST 38 U/L (13-39) 12/15/18 08:47 ALT 45 U/L (7-52) 12/15/18 08:47 Triglycerides 86 mg/dL 12/17/18 06:27 Cholesterol 127 mg/dL 12/17/18 06:27 LDL Cholesterol 80 mg/dL 12/17/18 06:27 Continued Medication Management: Continue Outpt Medication Medications: Current Medications Acetaminophen (Tylenol Tab*) 650 mg PO Q4H PRN PRN Reason: PAIN or TEMP > 101 F Last Admin: 12/17/18 03:20 Dose: 650 mg Al Hydrox/Mg Hydrox/Simethicone (Maalox Plus*) 30 ml PO Q4H PRN PRN Reason: INDIGESTION Ascorbic Acid (Vitamin C Tab*) 500 mg PO DAILY [facility] Last Admin: 12/16/18 08:23 Dose: 500 mg Buspirone HCl (Buspar Tab *) 15 mg PO BID [facility] Dextrose (D50w Syringe 50 Ml*) 12.5 gm IV PUSH .FOR FS < 60 - SS PRN PRN Reason: FS < 60 Diphenhydramine HCl (Benadryl Po*) 25 mg PO BEDTIME PRN PRN Reason: INSOMNIA Last Admin: 12/17/18 01:11 Dose: 25 mg Duloxetine HCl (Cymbalta Cap*) 20 mg PO DAILY [facility] Last Admin: 12/16/18 08:22 Dose: 20 mg Duloxetine HCl (Cymbalta Cap*) 30 mg PO DAILY [facility] Last Admin: 12/16/18 08:22 Dose: 30 mg Ferrous Sulfate (Ferrous Sulfate Tab*) 325 mg PO DAILY [facility] Last Admin: 12/16/18 08:23 Dose: 325 mg Gabapentin (Neurontin Cap(*)) 300 mg PO TID [facility] Last Admin: 12/16/18 21:00 Dose: 300 mg Insulin Glargine (Lantus(*)) 5 units SUBCUT BEDTIME [facility] Last Admin: 12/16/18 21:05 Dose: 5 units Insulin Human Lispro (Humalog*) 0 units SUBCUT AC [facility]; Protocol Last Admin: 12/16/18 17:50 Dose: 3 units Insulin Human Lispro (Humalog*) 0 units SUBCUT ACHS [facility]; Protocol Last Admin: 12/16/18 21:07 Dose: 3 units Morphine Sulfate (Ms Contin(*)) 60 mg PO Q8H [facility] Last Admin: 12/17/18 01:11 Dose: 60 mg Multivitamins (Theragran Tab*) 1 tab PO DAILY [facility] Last Admin: 12/16/18 08:23 Dose: 1 tab Naloxone HCl (Narcan Nasal [place]) 4 mg INTRANASAL .REPEAT Q2M to Q3M PRN PRN Reason: OPIATE OVERDOSE Ondansetron HCl (Zofran Tab*) 4 mg PO Q12H PRN PRN Reason: NAUSEA Oxycodone HCl (Roxycodone Tab*) 10 mg PO Q4H PRN PRN Reason: PAIN Polyethylene Glycol/Electrolytes (Miralax*) 17 gm PO 0800,2100 PRN PRN Reason: CONSTIPATION Senna (Senokot Tab*) 1 tab PO BID PRN PRN Reason: CONSTIPATION Tramadol HCl (Ultram*) 50 mg PO TID PRN PRN Reason: PAIN - BREAKTHROUGH - Discharge Plan Discharge Plan: Inpatient Hospitalization
[2018-12-17] MEDS: Insulin LISPRO* 1 UNITS UNIT SUBCUT SCH ×7 (08:25→20:24)
[2018-12-17] MEDS: DULoxetine DR CAP* 20 MG CAP.DR PO SCH (08:27)
[2018-12-17] MEDS: Ascorbic Acid TAB* 500 MG PO SCH (08:27)
[2018-12-17] MEDS: Vitamin THERAPEUTIC TAB PO SCH (08:27)
[2018-12-17] MEDS: DULoxetine DR CAP* 30 MG CAP.DR PO SCH (08:27)
[2018-12-17] MEDS: Gabapentin CAP(*) 300 MG PO SCH ×3 (08:28→20:21)
[2018-12-17] MEDS: Ferrous Sulfate TAB* 325 MG PO SCH (08:28)
[2018-12-17] MEDS: busPIRone TAB* 15 MG PO SCH ×2 (08:30→20:21)
[2018-12-17] MEDS ORDERED: DULoxetine DR CAP* 20 MG CAP.DR PO SCH (09:00)
[2018-12-17 09:15] LABS: HDL Cholesterol 29.7 mg/dL
--- NOTE | 2018-12-17 14:50 | ECHO ---
*[facility]* [place] [address] Fax #: [phone] Transthoracic Echocardiogram Patient: Manuel, Height: 67 in / Jordan 170.2 cm : 1970 Weight: 149.7 lb / Study Date: 12/17/2018 68 kg Age: 48 BP: 134 / 90 Gender: M BMI/BSA: 23.5 kg/m^2 HR: 60 bpm / 1.79 m^2 *Test Department Helper: * Jaye Kinney [facility] *Referring Physician: * Kayla Serrano *Reading Physician: * Austin Howard MD Indications: Edema. History: Risk factors: Diabetes mellitus. Labs, prior tests, procedures, and surgery: Gastric bypass. Conclusions Summary: 1. Left ventricle: Systolic function is normal. The estimated ejection fraction is 55-60%. Wall motion is normal; there are no regional wall motion abnormalities. 2. Right ventricle: Systolic function is normal. 3. Mitral valve: There is no significant regurgitation. 4. Aortic valve: There is no evidence of stenosis. There is no significant regurgitation. 5. Tricuspid valve: There is no significant regurgitation. 6. Pericardium, extracardiac: There is no significant pericardial effusion. 7. Impressions: No previous study was available for comparison. Study data: Transthoracic echocardiogram. Procedure: Transthoracic echocardiography was performed. Image quality was fair. Complete 2D, spectral Doppler, and color flow Doppler. Location: Echo laboratory. Patient status: Inpatient. Patient room number: 207 3. Rhythm: Normal sinus rhythm. Findings Left ventricle: The cavity size is normal. Wall thickness is normal. Systolic function is normal. The estimated ejection fraction is 55-60%. Wall motion is normal; there are no regional wall motion abnormalities. There is no consistent Doppler evidence of clinically significant diastolic dysfunction. Right ventricle: The cavity size is normal. Wall thickness is normal. Systolic function is normal. Ventricular septum: The outflow septum has a sigmoid appearance. Left atrium: The atrium is normal in size. Right atrium: The atrium is normal in size. Mitral valve: The leaflets are normal thickness. There is no evidence of stenosis. There is no significant regurgitation. The peak diastolic gradient is 2.6 mm Hg. Aortic valve: The leaflets are normal thickness. There is no evidence of stenosis. There is no significant regurgitation. The ratio of LVOT to aortic valve peak velocity is 1.24. The ratio of LVOT to aortic valve mean velocity is 1.06. The mean systolic gradient is 3.0 mm Hg. The peak systolic gradient is 5.0 mm Hg. Tricuspid valve: The leaflets are normal thickness. There is no evidence of stenosis. There is no significant regurgitation. Pulmonic valve: Not well visualized. There is no significant regurgitation. The peak systolic gradient is 2.0 mm Hg. Aorta: Aortic arch: The aortic arch is appears normal. The aortic root is not dilated. Pericardium: There is no significant pericardial effusion. Pulmonary arteries: Not well visualized. Systemic veins: Inferior vena cava: The vessel is normal in size. The respirophasic diameter changes are in the normal range (>= 50%). Measurements Left ventricle Value Ref Right atrium continued Value Ref [place], LAX 4.3 cm 4.2 - 5.8 ML dim, ES, A4C 3.7 cm 2.6 - 4.4 ESD, LAX (L) 2.1 cm 2.5 - 4.0 Estimated RAP 3 mm Hg --------- FS, LAX (H) 51 % 25 - 43 PW, ED, LAX 1.0 cm 0.6 - 1.0 Aortic valve Value Ref EF (H) 82 % 52 - 72 Liliana diam, ED 2.1 cm --------- E', lat liliana, TDI (L) 8.8 cm/sec >=10.0 Peak v, S 1.11 m/sec ----- ---- E/e', lat liliana, 9 VTI, S 22.4 cm -------- - TDI Mean grad, S 3.0 mm Hg --------- E', med liliana, TDI (L) 6.8 cm/sec >=7.0 Peak grad, S 5.0 mm Hg ----- ---- E/e', med liliana, 12 TDI Mitral valve Value Ref E', avg, TDI 7.8 cm/sec Peak E 0.81 m/sec -------- - E/e', avg, TDI 10 <=14 Peak A 0.65 m/sec ----- ---- Decel time 232 ms --------- LVOT Value Ref Peak grad, D 2.6 mm Hg --------- Peak neela, S 1.38 m/sec Peak E/A ratio 1.2 --------- Peak grad, S 8 mm Hg Mean grad, S 4 mm Hg Pulmonic valve Value Ref Peak v, S 0.69 m/sec --------- Ventricular septum Value Ref Peak grad, S 2.0 mm Hg --------- IVS, ED, LAX (H) 1.1 cm 0.6 - 1.0 Aortic root Value Ref Right ventricle Value Ref Root diam 2.9 cm <4.0 [place], LAX 3.3 cm [place] minor ax, 2.4 cm 1.9 - 3.5 Aortic arch Value Ref A4C mid Arch diam 2.1 cm --------- Left atrium Value Ref Decending aorta Value Ref AP dim, ES 3.20 cm 3.00 - Abbie peak neela 0.84 m/sec --------- 4.00 ML dim, A4C 3.8 cm Inferior vena cava Value Ref SI dim, A4C 4.2 cm Diam 1.7 cm --------- Vol/bsa, ES, A/L 29 ml/m^2 16 - 34 Right atrium Value Ref SI dim, ES 4.4 cm 3.4 - 5.3 Legend: (L) and (H) zeferino values outside specified reference range. Prepared and electronically signed by Austin Howard MD 12/17/2018 14:49
[2018-12-17] MEDS: Insulin GLARGINE(*) 1 UNITS UNIT SUBCUT SCH (20:22)
[2018-12-18] MEDS: Morphine TAB Extended Release (*) 30 MG TAB.ER PO SCH ×3 (00:05→17:21)
[2018-12-18] MEDS: diPHENhydraMINE PO* 25 MG PO PRN (00:05)
[2018-12-18] MEDS: oxyCODONE TAB* 5 MG TAB PO PRN ×5 (02:15→20:34)
[2018-12-18] MEDS: traMADol TAB* 50 MG PO PRN ×3 (03:28→21:49)
[2018-12-18] MEDS: Acetaminophen TAB* 325 MG PO PRN ×2 (03:28→21:48)
[2018-12-18] MEDS: Insulin LISPRO* 1 UNITS UNIT SUBCUT SCH ×7 (08:19→20:28)
[2018-12-18] MEDS: Vitamin THERAPEUTIC TAB PO SCH (08:46)
[2018-12-18] MEDS: busPIRone TAB* 15 MG PO SCH ×2 (08:46→20:37)
[2018-12-18] MEDS: DULoxetine DR CAP* 60 MG CAP.DR PO SCH (08:46)
[2018-12-18] MEDS: Gabapentin CAP(*) 300 MG PO SCH ×3 (08:47→20:36)
[2018-12-18] MEDS: Ascorbic Acid TAB* 500 MG PO SCH (08:47)
[2018-12-18] MEDS: Ferrous Sulfate TAB* 325 MG PO SCH (08:47)
--- NOTE | 2018-12-18 10:14 | PN ---
Subjective - Subjective Date of Service: 12/18/18 Service Type: 00457 Hosp care 35 min high complexity Subjective: Nursing Report: Patient was visible on unit, no chemical restraints or PRNs. Slept overnight without incident. He is attending group activities. CC: "I cant trust myself" Patient was seen and evaluated in the common room. He reported that he cant not trust himself and doesnt know why because he lived a independent life most of his life and remarks that he was working and had a sense of purpose. He was given information about the [facility] and said that he has a car to get there. The patient reports attending and participating in day groups. Per nursing no behavioral issues or overnight events reported. Patient reported that he is tolerating medications without side effects. Patient requesting TENS unit. He is requesting that Dr. Vicente his urologist be contacted to inquire if he needs a Lindsay. Objective - General Observations Appears Stated Age: Yes Stature: Thin Posture: WNL Eye Contact: Average Behavior/Activity: WNL - Interaction Observations Attitude Towards Examiner: Cooperative Stated Mood: Dysphoric Affect: Blunted Speech Pattern/Tone: Quiet Volume Thought Process: Coherent Perception: WNL Thought Content: Depressive Thought Process: Lethality: Passive Wish Hallucination Type: None Delusion Type: None - Cognitive Function Orientation: A&O x 4 Level of Consciousness: Awake Estimated Intelligence: Normal - Medication Compliance Cooperative with Inpatient Medication Regimen: Yes - Group Participation Participates in Group Activities: Yes Assessment - Assessment Clinical Impression: 48 year old male with suicidal ideation of overdosing on insulin to end his life. Plan - Plan Treatment Plan: Name: TAZ REYNOLDS Birthdate: 1970 [id number] #Q30, Staff pass, computer privileges. #Continue buspar to 15mg BID # Continue cymbalta to 60mg daily #Physical therapy consult for lower extremity strength building, patient uses walker to ambulate. # Dr. Vicente contacted from urology and advised to keep Lindsay catheter in place for now, remove in a week at follow up appointment. Oxybutynin 5mg QID PRN for bladder spasms # Patient is ambulating on unit. Compression stockings will be provided upon discharge. # PT department contacted and TENS unit is done on outpatient basis # Behavioral activation activities such [facility] provided Goals to eradicate depression and suicidal ideation. Vital Signs 12/17/18 12/17/18 12/17/18 12:32 12:37 14:55 Temperature Pulse Rate Respiratory 16 16 16 Rate Blood Pressure (mmHg) O2 Sat by Pulse Oximetry 12/17/18 12/17/18 12/17/18 15:04 16:56 16:58 Temperature Pulse Rate Respiratory 16 16 16 Rate Blood Pressure (mmHg) O2 Sat by Pulse Oximetry 12/17/18 12/17/18 12/17/18 20:16 20:21 22:42 Temperature Pulse Rate Respiratory 16 16 16 Rate Blood Pressure (mmHg) O2 Sat by Pulse Oximetry 12/18/18 12/18/18 12/18/18 00:00 00:05 02:05 Temperature Pulse Rate Respiratory 16 16 16 Rate Blood Pressure (mmHg) O2 Sat by Pulse Oximetry 12/18/18 12/18/18 12/18/18 02:15 03:28 04:20 Temperature Pulse Rate Respiratory 16 18 18 Rate Blood Pressure (mmHg) O2 Sat by Pulse Oximetry 12/18/18 12/18/18 12/18/18 05:25 07:32 07:43 Temperature 97.0 F Pulse Rate 73 Respiratory 16 16 16 Rate Blood Pressure 142/92 (mmHg) O2 Sat by Pulse 100 Oximetry 12/18/18 12/18/18 08:46 08:47 Temperature Pulse Rate Respiratory 16 16 Rate Blood Pressure (mmHg) O2 Sat by Pulse Oximetry VBG pH 7.54 (7.32-7.43) H 12/15/18 08:58 Sodium 138 mmol/L (135-145) 12/15/18 08:47 Potassium 4.0 mmol/L (3.5-5.0) 12/15/18 08:47 BUN 24 mg/dL (6-24) 12/15/18 08:47 Creatinine 0.58 mg/dL (0.67-1.17) L 12/15/18 08:47 Hemoglobin A1c 7.5 % (4.0-5.6) H 12/15/18 08:58 Calcium 8.7 mg/dL (8.6-10.3) 12/15/18 08:47 AST 38 U/L (13-39) 12/15/18 08:47 ALT 45 U/L (7-52) 12/15/18 08:47 Triglycerides 86 mg/dL 12/17/18 06:27 Cholesterol 127 mg/dL 12/17/18 06:27 LDL Cholesterol 80 mg/dL 12/17/18 06:27 Continued Medication Management: Continue Outpt Medication Medications: Current Medications Acetaminophen (Tylenol Tab*) 650 mg PO Q4H PRN PRN Reason: PAIN or TEMP > 101 F Last Admin: 12/18/18 03:28 Dose: 650 mg Al Hydrox/Mg Hydrox/Simethicone (Maalox Plus*) 30 ml PO Q4H PRN PRN Reason: INDIGESTION Ascorbic Acid (Vitamin C Tab*) 500 mg PO DAILY [facility] Last Admin: 12/18/18 08:47 Dose: 500 mg Buspirone HCl (Buspar Tab *) 15 mg PO BID [facility] Last Admin: 12/18/18 08:46 Dose: 15 mg Dextrose (D50w Syringe 50 Ml*) 12.5 gm IV PUSH .FOR FS < 60 - SS PRN PRN Reason: FS < 60 Diphenhydramine HCl (Benadryl Po*) 25 mg PO BEDTIME PRN PRN Reason: INSOMNIA Last Admin: 12/18/18 00:05 Dose: 25 mg Duloxetine HCl (Cymbalta Cap*) 60 mg PO DAILY [facility] Last Admin: 12/18/18 08:46 Dose: 60 mg Ferrous Sulfate (Ferrous Sulfate Tab*) 325 mg PO DAILY [facility] Last Admin: 12/18/18 08:47 Dose: 325 mg Gabapentin (Neurontin Cap(*)) 300 mg PO TID [facility] Last Admin: 12/18/18 08:47 Dose: 300 mg Insulin Glargine (Lantus(*)) 5 units SUBCUT BEDTIME [facility] Last Admin: 12/17/18 20:22 Dose: 5 units Insulin Human Lispro (Humalog*) 0 units SUBCUT AC [facility]; Protocol Last Admin: 12/18/18 08:47 Dose: 7 units Insulin Human Lispro (Humalog*) 0 units SUBCUT ACHS [facility]; Protocol Last Admin: 12/18/18 08:19 Dose: Not Given Morphine Sulfate (Ms Contin(*)) 60 mg PO Q8H [facility] Last Admin: 12/18/18 08:46 Dose: 60 mg Multivitamins (Theragran Tab*) 1 tab PO DAILY [facility] Last Admin: 12/18/18 08:46 Dose: 1 tab Naloxone HCl (Narcan Nasal [place]) 4 mg INTRANASAL .REPEAT Q2M to Q3M PRN PRN Reason: OPIATE OVERDOSE Ondansetron HCl (Zofran Tab*) 4 mg PO Q12H PRN PRN Reason: NAUSEA Oxybutynin Chloride (Ditropan Tab*) 5 mg PO QID PRN PRN Reason: SPASMS - BLADDER Oxycodone HCl (Roxycodone Tab*) 10 mg PO Q4H PRN PRN Reason: PAIN Last Admin: 12/18/18 05:25 Dose: 10 mg Polyethylene Glycol/Electrolytes (Miralax*) 17 gm PO 0800,2100 PRN PRN Reason: CONSTIPATION Senna (Senokot Tab*) 1 tab PO BID PRN PRN Reason: CONSTIPATION Tramadol HCl (Ultram*) 50 mg PO TID PRN PRN Reason: PAIN - BREAKTHROUGH Last Admin: 12/18/18 03:28 Dose: 50 mg - Discharge Plan Discharge Plan: Inpatient Hospitalization
[2018-12-18] MEDS: Insulin GLARGINE(*) 1 UNITS UNIT SUBCUT SCH (20:30)
[2018-12-19] MEDS: Morphine TAB Extended Release (*) 30 MG TAB.ER PO SCH ×3 (01:04→17:20)
[2018-12-19] MEDS: diPHENhydraMINE PO* 25 MG PO PRN (01:05)
[2018-12-19] MEDS: oxyCODONE TAB* 5 MG TAB PO PRN ×4 (03:25→20:20)
[2018-12-19 04:53] LABS: Urine TP Concentration 231 mg/dL
[2018-12-19] MEDS: traMADol TAB* 50 MG PO PRN ×2 (06:05→22:52)
[2018-12-19] MEDS: Acetaminophen TAB* 325 MG PO PRN ×2 (06:06→22:52)
[2018-12-19] MEDS: Insulin LISPRO* 1 UNITS UNIT SUBCUT SCH ×7 (07:34→20:26)
[2018-12-19] MEDS: Ferrous Sulfate TAB* 325 MG PO SCH (08:29)
[2018-12-19] MEDS: busPIRone TAB* 15 MG PO SCH ×2 (08:29→20:19)
[2018-12-19] MEDS: Vitamin THERAPEUTIC TAB PO SCH (08:29)
[2018-12-19] MEDS: DULoxetine DR CAP* 60 MG CAP.DR PO SCH (08:29)
[2018-12-19] MEDS: Gabapentin CAP(*) 300 MG PO SCH ×3 (08:30→20:19)
[2018-12-19] MEDS: Ascorbic Acid TAB* 500 MG PO SCH (08:30)
--- NOTE | 2018-12-19 11:15 | PN ---
Subjective - Subjective Date of Service: 12/19/18 Service Type: [id number] Hosp care 35 min high complexity Subjective: Nursing Report: Patient was visible on unit, no chemical restraints or PRNs. Slept overnight without incident. He is not attending group activities. CC: "I dont trust myself" Patient was seen and evaluated in the common room. He reported that he wishes he can drive because then he would be able to drive to the [facility] and to his appointments. He has been attending groups. He reported having an adequate appetite and sleep. Per nursing no behavioral issues or overnight events reported. Patient reported that he is tolerating medications without side effects. Objective - General Observations Appearance: Neat Appears Stated Age: Yes Stature: WNL, Thin Posture: WNL, Slumped Eye Contact: Average Behavior/Activity: WNL - Interaction Observations Attitude Towards Examiner: Cooperative Stated Mood: Dysphoric Speech Pattern/Tone: Clear Thought Process: Coherent Perception: WNL Thought Content: WNL Thought Process: Lethality: Passive Wish Hallucination Type: None Delusion Type: None - Cognitive Function Orientation: A&O x 4 Level of Consciousness: Awake - Medication Compliance Cooperative with Inpatient Medication Regimen: Yes - Group Participation Participates in Group Activities: Yes Assessment - Assessment Clinical Impression: 48 year old male with suicidal ideation of overdosing on insulin to end his life. Plan - Plan Treatment Plan: Name: TAZ REYNOLDS Birthdate: 1970 [id number] #Patient continues to require inpatient psychiatric care #Q30, Staff pass, computer privileges. #Continue buspar to 15mg BID # Continue cymbalta to 60mg daily #Physical therapy consult for lower extremity strength building, patient uses walker to ambulate. # Dr. Vicente contacted from urology and advised to keep Lindsay catheter in place for now, remove in a week at follow up appointment. Oxybutynin 5mg QID PRN for bladder spasms # Patient is ambulating on unit. Compression stockings will be provided upon discharge. # PT department contacted and TENS unit is done on outpatient basis # Behavioral activation activities such [facility] provided # Guns located in safe in barn out of his access #Goals to eradicate depression and suicidal ideation. #Nursing care evaluators expected tomorrow. Continued Medication Management: Continue Outpt Medication Medications: Current Medications Acetaminophen (Tylenol Tab*) 650 mg PO Q4H PRN PRN Reason: PAIN or TEMP > 101 F Last Admin: 12/19/18 06:06 Dose: 650 mg Al Hydrox/Mg Hydrox/Simethicone (Maalox Plus*) 30 ml PO Q4H PRN PRN Reason: INDIGESTION Ascorbic Acid (Vitamin C Tab*) 500 mg PO DAILY [facility] Last Admin: 12/19/18 08:30 Dose: 500 mg Buspirone HCl (Buspar Tab *) 15 mg PO BID [facility] Last Admin: 12/19/18 08:29 Dose: 15 mg Dextrose (D50w Syringe 50 Ml*) 12.5 gm IV PUSH .FOR FS < 60 - SS PRN PRN Reason: FS < 60 Diphenhydramine HCl (Benadryl Po*) 25 mg PO BEDTIME PRN PRN Reason: INSOMNIA Last Admin: 12/19/18 01:05 Dose: 25 mg Duloxetine HCl (Cymbalta Cap*) 60 mg PO DAILY [facility] Last Admin: 12/19/18 08:29 Dose: 60 mg Ferrous Sulfate (Ferrous Sulfate Tab*) 325 mg PO DAILY [facility] Last Admin: 12/19/18 08:29 Dose: 325 mg Gabapentin (Neurontin Cap(*)) 300 mg PO TID [facility] Last Admin: 12/19/18 08:30 Dose: 300 mg Insulin Glargine (Lantus(*)) 5 units SUBCUT BEDTIME [facility] Last Admin: 12/18/18 20:30 Dose: 5 units Insulin Human Lispro (Humalog*) 0 units SUBCUT AC [facility]; Protocol Last Admin: 12/19/18 08:21 Dose: 6 units Insulin Human Lispro (Humalog*) 0 units SUBCUT ACHS [facility]; Protocol Last Admin: 12/19/18 07:34 Dose: Not Given Morphine Sulfate (Ms Contin(*)) 60 mg PO Q8H [facility] Last Admin: 12/19/18 09:11 Dose: 60 mg Multivitamins (Theragran Tab*) 1 tab PO DAILY [facility] Last Admin: 12/19/18 08:29 Dose: 1 tab Naloxone HCl (Narcan Nasal [place]) 4 mg INTRANASAL .REPEAT Q2M to Q3M PRN PRN Reason: OPIATE OVERDOSE Ondansetron HCl (Zofran Tab*) 4 mg PO Q12H PRN PRN Reason: NAUSEA Oxybutynin Chloride (Ditropan Tab*) 5 mg PO QID PRN PRN Reason: SPASMS - BLADDER Oxycodone HCl (Roxycodone Tab*) 10 mg PO Q4H PRN PRN Reason: PAIN Last Admin: 12/19/18 07:32 Dose: 10 mg Polyethylene Glycol/Electrolytes (Miralax*) 17 gm PO 0800,2100 PRN PRN Reason: CONSTIPATION Senna (Senokot Tab*) 1 tab PO BID PRN PRN Reason: CONSTIPATION Tramadol HCl (Ultram*) 50 mg PO TID PRN PRN Reason: PAIN - BREAKTHROUGH Last Admin: 12/19/18 06:05 Dose: 50 mg - Discharge Plan Discharge Plan: Inpatient Hospitalization
--- NOTE | 2018-12-19 16:57 | PN ---
[facility]: Group Therapy Note - Service Type Service Type: [id number] Group Psychotherapy - Medication Education Group: Patient was attentive and participatory in group, and remained in good behavioral control. Patient expressed positive insights regarding relevant treatment interventions. Patient stated understanding of material discussed and had appropriate questions.
[2018-12-19] MEDS: Insulin GLARGINE(*) 1 UNITS UNIT SUBCUT SCH (20:26)
--- NOTE | 2018-12-19 22:32 | PN ---
Subjective Date of Service: 12/19/18 Interval History: Patient reports that he is feeling better, reports that his lower extremity swelling improves with elevation of his legs. Patient denies chest pain or shortness of breath. denies n/v/d or abd pain . denies fever or chills. Family History: Unchanged from Admission Social History: Unchanged from Admission Past Medical History: Unchanged from Admission Objective Active Medications: Acetaminophen (Tylenol Tab*) 650 mg PO Q4H PRN PRN Reason: PAIN or TEMP > 101 F Last Admin: 12/19/18 06:06 Dose: 650 mg Al Hydrox/Mg Hydrox/Simethicone (Maalox Plus*) 30 ml PO Q4H PRN PRN Reason: INDIGESTION Ascorbic Acid (Vitamin C Tab*) 500 mg PO DAILY [facility] Last Admin: 12/19/18 08:30 Dose: 500 mg Buspirone HCl (Buspar Tab *) 15 mg PO BID [facility] Last Admin: 12/19/18 20:19 Dose: 15 mg Dextrose (D50w Syringe 50 Ml*) 12.5 gm IV PUSH .FOR FS < 60 - SS PRN PRN Reason: FS < 60 Diphenhydramine HCl (Benadryl Po*) 25 mg PO BEDTIME PRN PRN Reason: INSOMNIA Last Admin: 12/19/18 01:05 Dose: 25 mg Duloxetine HCl (Cymbalta Cap*) 60 mg PO DAILY [facility] Last Admin: 12/19/18 08:29 Dose: 60 mg Ferrous Sulfate (Ferrous Sulfate Tab*) 325 mg PO DAILY [facility] Last Admin: 12/19/18 08:29 Dose: 325 mg Gabapentin (Neurontin Cap(*)) 300 mg PO TID [facility] Last Admin: 12/19/18 20:19 Dose: 300 mg Insulin Glargine (Lantus(*)) 5 units SUBCUT BEDTIME [facility] Last Admin: 12/19/18 20:26 Dose: 5 units Insulin Human Lispro (Humalog*) 0 units SUBCUT AC [facility]; Protocol Last Admin: 12/19/18 17:19 Dose: 4 units Insulin Human Lispro (Humalog*) 0 units SUBCUT ACHS [facility]; Protocol Last Admin: 12/19/18 20:26 Dose: 1 units Morphine Sulfate (Ms Contin(*)) 60 mg PO Q8H [facility] Last Admin: 12/19/18 17:20 Dose: 60 mg Multivitamins (Theragran Tab*) 1 tab PO DAILY [facility] Last Admin: 12/19/18 08:29 Dose: 1 tab Naloxone HCl (Narcan Nasal [place]) 4 mg INTRANASAL .REPEAT Q2M to Q3M PRN PRN Reason: OPIATE OVERDOSE Ondansetron HCl (Zofran Tab*) 4 mg PO Q12H PRN PRN Reason: NAUSEA Last Admin: 12/19/18 12:33 Dose: 4 mg Oxybutynin Chloride (Ditropan Tab*) 5 mg PO QID PRN PRN Reason: SPASMS - BLADDER Oxycodone HCl (Roxycodone Tab*) 10 mg PO Q4H PRN PRN Reason: PAIN Last Admin: 12/19/18 20:20 Dose: 10 mg Polyethylene Glycol/Electrolytes (Miralax*) 17 gm PO 0800,2100 PRN PRN Reason: CONSTIPATION Senna (Senokot Tab*) 1 tab PO BID PRN PRN Reason: CONSTIPATION Tramadol HCl (Ultram*) 50 mg PO TID PRN PRN Reason: PAIN - BREAKTHROUGH Last Admin: 12/19/18 06:05 Dose: 50 mg Vital Signs - 8 hr 12/19/18 12/19/18 12/19/18 14:36 17:20 17:22 Respiratory 16 17 17 Rate 12/19/18 12/19/18 12/19/18 20:19 20:20 22:10 Respiratory 16 16 16 Rate Oxygen Devices in Use Now: None Appearance: appears comfortable sitting on the bench , no acute distress Eyes: No Scleral Icterus Ears/Nose/Mouth/Throat: Clear Oropharnyx, Mucous Membranes Moist Neck: NL Appearance and Movements; NL JVP, Trachea Midline Respiratory: Symmetrical Chest Expansion and Respiratory Effort, Clear to Auscultation Cardiovascular: NL Sounds; No Murmurs; No JVD, No Edema Abdominal: NL Sounds; No Tenderness; No Distention Extremities: No Clubbing, Cyanosis, - - +2-3 pitting edema to bilat lower legs Skin: No Rash or Ulcers Neurological: Alert and Oriented x 3 Nutrition: Taking PO's Result Diagrams: 12/15/18 08:47 12/15/18 08:47 Microbiology and Other Data: Microbiology 12/14/18 17:37 Urine Culture - Final Urine Enterococcus Faecalis Normal Fany Assess/Plan/Problems-Billing Assessment: Mr. Xie is a 48 y.o male with DM, leg swelling, and suicidal ideation. Who was admitted to [facility] for suicidal ideation. - Patient Problems (1) Proteinuria, unspecified Current Visit: Yes Status: Acute Code(s): R80.9 - PROTEINURIA, UNSPECIFIED SNOMED Code(s): 51724455 Comment: At this time i would recommend that the patient be placed on lisinopril 2.5 mg po daily as a renal protectant - he should follow up with his PCP at discharge to continue to monitor is the protein in his urine and repeat BMP next week (2) Leg swelling Current Visit: Yes Status: Acute Code(s): M79.89 - OTHER SPECIFIED SOFT TISSUE DISORDERS SNOMED Code(s): 159089665 Comment: - continue with elevation of legs at night-patient reports improvement - ECHO EF 55-60%- no systolic or diastolic dysfunction noted - ROXANNE stocking (3) Diabetes Current Visit: No Status: Acute Code(s): E11.9 - TYPE 2 DIABETES MELLITUS WITHOUT COMPLICATIONS SNOMED Code(s): 25529884 Comment: - will continue on lantus as prescribed - fasting blood sugar this AM 111 - lispro sliding scale and finger sticks Status and Disposition: at this time we will sigh off - please contact us if any further management is needed for his underlying medical conditions
[2018-12-20] MEDS: Morphine TAB Extended Release (*) 30 MG TAB.ER PO SCH ×3 (00:30→17:30)
[2018-12-20] MEDS: diPHENhydraMINE PO* 25 MG PO PRN (00:30)
[2018-12-20] MEDS: oxyCODONE TAB* 5 MG TAB PO PRN ×3 (03:45→19:30)
[2018-12-20] MEDS: Acetaminophen TAB* 325 MG PO PRN ×3 (04:50→21:16)
[2018-12-20] MEDS: traMADol TAB* 50 MG PO PRN ×3 (04:50→21:15)
[2018-12-20] MEDS: Ferrous Sulfate TAB* 325 MG PO SCH (08:22)
[2018-12-20] MEDS: Vitamin THERAPEUTIC TAB PO SCH (08:22)
[2018-12-20] MEDS: Gabapentin CAP(*) 300 MG PO SCH ×3 (08:22→20:34)
[2018-12-20] MEDS: Ascorbic Acid TAB* 500 MG PO SCH (08:23)
[2018-12-20] MEDS: DULoxetine DR CAP* 60 MG CAP.DR PO SCH (08:23)
[2018-12-20] MEDS: busPIRone TAB* 15 MG PO SCH ×2 (08:23→20:34)
[2018-12-20] MEDS: Insulin LISPRO* 1 UNITS UNIT SUBCUT SCH ×7 (08:28→20:33)
--- NOTE | 2018-12-20 10:42 | PN ---
Subjective - Subjective Date of Service: 12/20/18 Service Type: 06214 Hosp care 35 min high complexity Subjective: Nursing Report: Patient was visible on unit, no chemical restraints or PRNs. Slept overnight without incident. He is attending group activities. CC: " Okay" Patient was seen and evaluated in the common room. The patient reported he feels safe on the unit and is interacting with peers. He reported having an adequate appetite and sleep. Patient requesting to have zofran more frequently. The patient reports attending and participating in day groups. Per nursing no behavioral issues or overnight events reported. Patient reported that he is tolerating medications without side effects. Objective - General Observations Appears Stated Age: Yes Stature: Thin Posture: Slumped Eye Contact: Average Behavior/Activity: WNL - Interaction Observations Stated Mood: Dysphoric Affect: Blunted Speech Pattern/Tone: Clear Thought Process: Coherent Perception: WNL Thought Content: Self-Deprecatory Thought Process: Lethality: Passive Wish Hallucination Type: None Delusion Type: None - Cognitive Function Orientation: A&O x 4 Level of Consciousness: Awake Cognition: WNL - Medication Compliance Cooperative with Inpatient Medication Regimen: Yes - Group Participation Participates in Group Activities: Yes Assessment - Assessment Merits Inpatient Hospitalization: For Immediate Safety Clinical Impression: 48 year old male with suicidal ideation of overdosing on insulin to end his life. Plan - Plan Treatment Plan: Name: TAZ REYNOLDS Birthdate: 1970 [id number] #Patient continues to require inpatient psychiatric care #Q30, Staff pass, computer privileges. #Continue buspar to 15mg BID # Continue cymbalta to 60mg daily #Physical therapy consult for lower extremity strength building, patient uses walker to ambulate. # Dr. Vicente contacted from urology and advised to keep Lindsay catheter in place for now, remove in a week at follow up appointment. Oxybutynin 5mg QID PRN for bladder spasms # Patient is ambulating on unit. Compression stockings will be provided upon discharge. # PT department contacted and TENS unit is done on outpatient basis # Behavioral activation activities [facility] provided #Goals to eradicate depression and suicidal ideation. #Nursing care evaluators expected tomorrow. #Medical management per medical team. #Tentative Discharge Monday Continued Medication Management: Continue Outpt Medication Medications: Current Medications Acetaminophen (Tylenol Tab*) 650 mg PO Q4H PRN PRN Reason: PAIN or TEMP > 101 F Last Admin: 12/20/18 04:50 Dose: 650 mg Al Hydrox/Mg Hydrox/Simethicone (Maalox Plus*) 30 ml PO Q4H PRN PRN Reason: INDIGESTION Ascorbic Acid (Vitamin C Tab*) 500 mg PO DAILY [facility] Last Admin: 12/20/18 08:23 Dose: 500 mg Buspirone HCl (Buspar Tab *) 15 mg PO BID [facility] Last Admin: 12/20/18 08:23 Dose: 15 mg Dextrose (D50w Syringe 50 Ml*) 12.5 gm IV PUSH .FOR FS < 60 - SS PRN PRN Reason: FS < 60 Diphenhydramine HCl (Benadryl Po*) 25 mg PO BEDTIME PRN PRN Reason: INSOMNIA Last Admin: 12/20/18 00:30 Dose: 25 mg Duloxetine HCl (Cymbalta Cap*) 60 mg PO DAILY [facility] Last Admin: 12/20/18 08:23 Dose: 60 mg Ferrous Sulfate (Ferrous Sulfate Tab*) 325 mg PO DAILY [facility] Last Admin: 12/20/18 08:22 Dose: 325 mg Gabapentin (Neurontin Cap(*)) 300 mg PO TID [facility] Last Admin: 12/20/18 08:22 Dose: 300 mg Insulin Glargine (Lantus(*)) 5 units SUBCUT BEDTIME [facility] Last Admin: 12/19/18 20:26 Dose: 5 units Insulin Human Lispro (Humalog*) 0 units SUBCUT AC [facility]; Protocol Last Admin: 12/20/18 08:28 Dose: 7 units Insulin Human Lispro (Humalog*) 0 units SUBCUT ACHS [facility]; Protocol Last Admin: 12/20/18 08:29 Dose: 1 units Morphine Sulfate (Ms Contin(*)) 60 mg PO Q8H [facility] Last Admin: 12/20/18 09:12 Dose: 60 mg Multivitamins (Theragran Tab*) 1 tab PO DAILY [facility] Last Admin: 12/20/18 08:22 Dose: 1 tab Naloxone HCl (Narcan Nasal [place]) 4 mg INTRANASAL .REPEAT Q2M to Q3M PRN PRN Reason: OPIATE OVERDOSE Ondansetron HCl (Zofran Tab*) 4 mg PO Q12H PRN PRN Reason: NAUSEA Last Admin: 12/19/18 12:33 Dose: 4 mg Oxybutynin Chloride (Ditropan Tab*) 5 mg PO QID PRN PRN Reason: SPASMS - BLADDER Oxycodone HCl (Roxycodone Tab*) 10 mg PO Q4H PRN PRN Reason: PAIN Last Admin: 12/20/18 03:45 Dose: 10 mg Polyethylene Glycol/Electrolytes (Miralax*) 17 gm PO 0800,2100 PRN PRN Reason: CONSTIPATION Senna (Senokot Tab*) 1 tab PO BID PRN PRN Reason: CONSTIPATION Tramadol HCl (Ultram*) 50 mg PO TID PRN PRN Reason: PAIN - BREAKTHROUGH Last Admin: 12/20/18 04:50 Dose: 50 mg - Discharge Plan Discharge Plan: Inpatient Hospitalization
--- NOTE | 2018-12-20 11:00 | PN ---
[facility]: Group Therapy Note - Service Type Service Type: [id number] Group Psychotherapy - Cognitive Behavioral Group Therapy ( CBT):Patient was attentive and participatory in CBT programming this morning, and remained in good behavioral control. Patient expressed positive insights regarding relevant treatment interventions and goals.
[2018-12-20] MEDS: Lisinopril TAB* 5 MG PO SCH (11:03)
[2018-12-20] MEDS: Ondansetron TAB* 4 MG PO PRN (16:49)
[2018-12-20] MEDS: Insulin GLARGINE(*) 1 UNITS UNIT SUBCUT SCH (20:29)
[2018-12-21] MEDS: Morphine TAB Extended Release (*) 30 MG TAB.ER PO SCH ×3 (00:51→17:23)
[2018-12-21] MEDS: diPHENhydraMINE PO* 25 MG PO PRN (00:52)
[2018-12-21] MEDS: oxyCODONE TAB* 5 MG TAB PO PRN ×5 (03:02→22:59)
[2018-12-21] MEDS: Insulin LISPRO* 1 UNITS UNIT SUBCUT SCH ×7 (08:24→20:22)
[2018-12-21] MEDS: busPIRone TAB* 15 MG PO SCH ×2 (08:25→20:24)
[2018-12-21] MEDS: Ferrous Sulfate TAB* 325 MG PO SCH (08:25)
[2018-12-21] MEDS: Ascorbic Acid TAB* 500 MG PO SCH (08:25)
[2018-12-21] MEDS: Vitamin THERAPEUTIC TAB PO SCH (08:25)
[2018-12-21] MEDS: DULoxetine DR CAP* 60 MG CAP.DR PO SCH (08:25)
[2018-12-21] MEDS: Gabapentin CAP(*) 300 MG PO SCH ×3 (08:25→20:23)
[2018-12-21] MEDS: Lisinopril TAB* 5 MG PO SCH (08:25)
--- NOTE | 2018-12-21 11:38 | PN ---
[facility]: Group Therapy Note - Service Type Service Type: [id number] Group Psychotherapy - Cognitive Behavioral Group Therapy ( CBT):Patient was attentive and participatory in CBT programming this morning, and remained in good behavioral control. Patient expressed positive insights regarding relevant treatment interventions and goals.
--- NOTE | 2018-12-21 13:44 | PN ---
Subjective - Subjective Date of Service: 12/21/18 Service Type: 62345 Hosp care 35 min high complexity Subjective: Nursing Report: Patient was visible on unit, no chemical restraints or PRNs. Slept overnight without incident. He is attending group activities. CC: " I want to see my grandson" Patient was seen and evaluated in the common room. He identified that his goals include going to [place] after his daughter gives to see his grandson. The patient reported that once his parents return his parents will drive him to his appointments as well as to other places. Upon discharge, he plans to to PT and go swimming at [employer] and build lower extremity strength. He reported having an adequate appetite and sleep. The patient reports attending and participating in day groups. Per nursing no behavioral issues or overnight events reported. Patient reported that he is tolerating medications without side effects. Objective - General Observations Appearance: Neat Appears Stated Age: Yes Stature: Thin Posture: Slumped Eye Contact: Average Behavior/Activity: WNL - Interaction Observations Attitude Towards Examiner: Cooperative Stated Mood: Dysphoric Affect: Blunted Speech Pattern/Tone: Clear Thought Process: Coherent Perception: WNL Thought Content: Depressive Hallucination Type: None Delusion Type: None - Cognitive Function Orientation: A&O x 4 Level of Consciousness: Awake Cognition: WNL - Medication Compliance Cooperative with Inpatient Medication Regimen: Yes - Group Participation Participates in Group Activities: Yes Assessment - Assessment Merits Inpatient Hospitalization: For Immediate Safety Clinical Impression: 48 year old male with suicidal ideation of overdosing on insulin to end his life. Plan - Plan Treatment Plan: Name: TAZ REYNOLDS Birthdate: 1970 [id number] #Patient continues to require inpatient psychiatric care #Q30, Staff pass, computer privileges. #Continue buspar to 15mg BID # Continue cymbalta to 60mg daily. Prior authorization sent. #Physical therapy consult for lower extremity strength building, patient uses walker to ambulate. # Dr. Vicente contacted from urology and advised to keep Lindsay catheter in place for now, remove in a week at follow up appointment. Oxybutynin 5mg QID PRN for bladder spasms # Patient is ambulating on unit. Compression stockings will be provided upon discharge. # PT department contacted and TENS unit is done on outpatient basis # Behavioral activation activities provided #Goals to eradicate depression and suicidal ideation. #Medical management per medical team. #Tentative Discharge Monday Goals to increase behavioral activation and improve socialization. Laboratory Results WBC 6.2 10^3/uL (3.5-10.8) 12/15/18 08:47 RBC 4.71 10^6 /uL (4.18-5.48) 12/15/18 08:47 Hgb 12.1 g/dL (14.0-18.0) L 12/15/18 08:47 Hct 37 % (42-52) L 12/15/18 08:47 MCV 79 fL (80-94) L 12/15/18 08:47 MCH 26 pg (27-31) L 12/15/18 08:47 MCHC 33 g/dL (31-36) 12/15/18 08:47 RDW 15 % (10.5-15) 12/15/18 08:47 Plt Count 324 10^3/uL (150-450) 12/15/18 08:47 MPV 7.3 fL (7.4-10.4) L 12/15/18 08:47 Neut % (Auto) 59.2 % 12/15/18 08:47 Lymph % (Auto) 26.5 % 12/15/18 08:47 [place] % (Auto) 9.2 % 12/15/18 08:47 Eos % (Auto) 4.3 % 12/15/18 08:47 Baso % (Auto) 0.8 % 12/15/18 08:47 Absolute Neuts (auto) 3.7 10^3/ul (1.5-7.7) 12/15/18 08:47 Absolute Lymphs (auto) 1.6 10^3/ul (1.0-4.8) 12/15/18 08:47 Absolute Monos (auto) 0.6 10^3/ul (0-0.8) 12/15/18 08:47 Absolute Eos (auto) 0.3 10^3/ul (0-0.6) 12/15/18 08:47 Absolute Basos (auto) 0.0 10^3/ul (0-0.2) 12/15/18 08:47 Absolute Nucleated RBC 0.0 10^3/ul 12/15/18 08:47 Nucleated RBC % 0.0 12/15/18 08:47 VBG pH 7.54 (7.32-7.43) H 12/15/18 08:58 VBG pCO2 35 mmHg (41-51) L 12/15/18 08:58 VBG pO2 < 38.0 mmHg (35-45) 12/15/18 08:58 VBG HCO3 29.2 mmol/L (24-28) H 12/15/18 08:58 VBG O2 Saturation 48.6 % (70-80) L 12/15/18 08:58 VBG Base Excess 7.2 mmol/L (0.0-4.0) H 12/15/18 08:58 Sodium 138 mmol/L (135-145) 12/15/18 08:47 Potassium 4.0 mmol/L (3.5-5.0) 12/15/18 08:47 Chloride 102 mmol/L (101-111) 12/15/18 08:47 Carbon Dioxide 29 mmol/L (22-32) 12/15/18 08:47 Anion Gap 7 mmol/L (2-11) 12/15/18 08:47 BUN 24 mg/dL (6-24) 12/15/18 08:47 Creatinine 0.58 mg/dL (0.67-1.17) L 12/15/18 08:47 Est GFR ( Amer) 181.7 (>60) 12/15/18 08:47 Est GFR (Non-Af Amer) 150.2 (>60) 12/15/18 08:47 BUN/Creatinine Ratio 41.4 (8-20) H 12/15/18 08:47 Glucose 208 mg/dL (70-100) H 12/15/18 08:47 POC Glucose (mg/dL) 129 mg/dL (70-100) H 12/21/18 07:32 Hemoglobin A1c 7.5 % (4.0-5.6) H 12/15/18 08:58 Calcium 8.7 mg/dL (8.6-10.3) 12/15/18 08:47 Total Bilirubin 0.40 mg/dL (0.2-1.0) 12/15/18 08:47 AST 38 U/L (13-39) 12/15/18 08:47 ALT 45 U/L (7-52) 12/15/18 08:47 Alkaline Phosphatase 193 U/L (34-104) H 12/15/18 08:47 Total Protein 5.9 g/dL (6.4-8.9) L 12/15/18 08:47 Albumin 3.0 g/dL (3.2-5.2) L 12/15/18 08:47 Globulin 2.9 g/dL (2-4) 12/15/18 08:47 Albumin/Globulin Ratio 1.0 (1-3) 12/15/18 08:47 Triglycerides 86 mg/dL 12/17/18 06:27 Cholesterol 127 mg/dL 12/17/18 06:27 LDL Cholesterol 80 mg/dL 12/17/18 06:27 HDL Cholesterol 29.7 mg/dL 12/17/18 06:27 TSH 0.66 mcIU/mL (0.34-5.60) 12/14/18 17:46 Urine Color Yellow 12/14/18 17:37 Urine Appearance Cloudy 12/14/18 17:37 Urine pH 7.0 (5-9) 12/14/18 17:37 Ur Specific [place] 1.018 (1.010-1.030) 12/14/18 17:37 Urine Protein 2+(100 mg/dl) (Negative) A 12/14/18 17:37 Urine Ketones Trace (Negative) A 12/14/18 17:37 Urine Blood 1+ (Negative) A 12/14/18 17:37 Urine Nitrate Negative (Negative) 12/14/18 17:37 Urine Bilirubin Negative (Negative) 12/14/18 17:37 Urine Urobilinogen Negative (Negative) 12/14/18 17:37 Ur Leukocyte Esterase Negative (Negative) 12/14/18 17:37 Urine WBC (Auto) 1+(6-10/hpf) (Absent) A 12/14/18 17:37 Urine RBC (Auto) 3+(>10/hpf) (Absent) A 12/14/18 17:37 Calcium Oxalate Crystal Present (Absent) A 12/14/18 17:37 Urine Bacteria Absent (Absent) 12/14/18 17:37 Hyaline Casts Present (Absent) A 12/14/18 17:37 Urine Collection Time 24 hr 12/19/18 03:30 Urine Total Volume 500 mL 12/19/18 03:30 Ur Total Protein Conc 231 mg/dL 12/19/18 03:30 Ur Total Protein 24 Hr 1155 mg/24Hr (0-165) H 12/19/18 03:30 Urine Glucose 2+(150 mg/dl) (Negative) A 12/14/18 17:37 Salicylates < 2.50 mg/dL (<30) 12/14/18 17:46 Urine Opiates Screen Presumptive positive (None Detect) A 12/14/18 17:37 Acetaminophen < 15 mcg/mL 12/14/18 17:46 Ur Barbiturates Screen None detected (None Detect) 12/14/18 17:37 Ur Phencyclidine Scrn None detected (None Detect) 12/14/18 17:37 Ur Amphetamines Screen None detected (None Detect) 12/14/18 17:37 U Benzodiazepines Scrn None detected (None Detect) 12/14/18 17:37 Urine Cocaine Screen None detected (None Detect) 12/14/18 17:37 U Cannabinoids Screen Presumptive positive (None Detect) A 12/14/18 17:37 Serum Alcohol < 10 mg/dL (<10) 12/14/18 17:46 Continued Medication Management: Continue Outpt Medication Medications: Current Medications Acetaminophen (Tylenol Tab*) 650 mg PO Q4H PRN PRN Reason: PAIN or TEMP > 101 F Last Admin: 12/20/18 21:16 Dose: 650 mg Al Hydrox/Mg Hydrox/Simethicone (Maalox Plus*) 30 ml PO Q4H PRN PRN Reason: INDIGESTION Ascorbic Acid (Vitamin C Tab*) 500 mg PO DAILY [facility] Last Admin: 12/21/18 08:25 Dose: 500 mg Buspirone HCl (Buspar Tab *) 15 mg PO BID [facility] Last Admin: 12/21/18 08:25 Dose: 15 mg Dextrose (D50w Syringe 50 Ml*) 12.5 gm IV PUSH .FOR FS < 60 - SS PRN PRN Reason: FS < 60 Diphenhydramine HCl (Benadryl Po*) 25 mg PO BEDTIME PRN PRN Reason: INSOMNIA Last Admin: 12/21/18 00:52 Dose: 25 mg Duloxetine HCl (Cymbalta Cap*) 60 mg PO DAILY [facility] Last Admin: 12/21/18 08:25 Dose: 60 mg Ferrous Sulfate (Ferrous Sulfate Tab*) 325 mg PO DAILY [facility] Last Admin: 12/21/18 08:25 Dose: 325 mg Gabapentin (Neurontin Cap(*)) 300 mg PO TID [facility] Last Admin: 12/21/18 08:25 Dose: 300 mg Insulin Glargine (Lantus(*)) 5 units SUBCUT BEDTIME [facility] Last Admin: 12/20/18 20:29 Dose: Not Given Insulin Human Lispro (Humalog*) 0 units SUBCUT AC [facility]; Protocol Last Admin: 12/21/18 12:54 Dose: 2 units Insulin Human Lispro (Humalog*) 0 units SUBCUT ACHS [facility]; Protocol Last Admin: 12/21/18 12:54 Dose: 1 units Lisinopril (Prinivil Tab*) 2.5 mg PO DAILY [facility] Last Admin: 12/21/18 08:25 Dose: 2.5 mg Morphine Sulfate (Ms Contin(*)) 60 mg PO Q8H [facility] Last Admin: 12/21/18 09:58 Dose: 60 mg Multivitamins (Theragran Tab*) 1 tab PO DAILY [facility] Last Admin: 12/21/18 08:25 Dose: 1 tab Naloxone HCl (Narcan Nasal [place]) 4 mg INTRANASAL .REPEAT Q2M to Q3M PRN PRN Reason: OPIATE OVERDOSE Ondansetron HCl (Zofran Tab*) 4 mg PO Q6H PRN PRN Reason: NAUSEA Last Admin: 12/20/18 16:49 Dose: 4 mg Oxybutynin Chloride (Ditropan Tab*) 5 mg PO QID PRN PRN Reason: SPASMS - BLADDER Oxycodone HCl (Roxycodone Tab*) 10 mg PO Q4H PRN PRN Reason: PAIN Last Admin: 12/21/18 12:58 Dose: 10 mg Polyethylene Glycol/Electrolytes (Miralax*) 17 gm PO 0800,2100 PRN PRN Reason: CONSTIPATION Senna (Senokot Tab*) 1 tab PO BID PRN PRN Reason: CONSTIPATION Tramadol HCl (Ultram*) 50 mg PO TID PRN PRN Reason: PAIN - BREAKTHROUGH Last Admin: 12/20/18 21:15 Dose: 50 mg - Discharge Plan Discharge Plan: Inpatient Hospitalization
[2018-12-21] MEDS: Acetaminophen TAB* 325 MG PO PRN ×2 (15:20→21:07)
[2018-12-21] MEDS: traMADol TAB* 50 MG PO PRN ×2 (15:20→21:07)
[2018-12-21] MEDS: Insulin GLARGINE(*) 1 UNITS UNIT SUBCUT SCH (20:23)
[2018-12-22] MEDS: Morphine TAB Extended Release (*) 30 MG TAB.ER PO SCH ×3 (00:56→17:23)
[2018-12-22] MEDS: oxyCODONE TAB* 5 MG TAB PO PRN ×3 (03:49→21:17)
[2018-12-22] MEDS: traMADol TAB* 50 MG PO PRN ×3 (06:24→23:40)
[2018-12-22] MEDS: Acetaminophen TAB* 325 MG PO PRN ×3 (06:25→23:40)
[2018-12-22] MEDS: Vitamin THERAPEUTIC TAB PO SCH (08:21)
[2018-12-22] MEDS: busPIRone TAB* 15 MG PO SCH ×2 (08:21→21:06)
[2018-12-22] MEDS: Ferrous Sulfate TAB* 325 MG PO SCH (08:21)
[2018-12-22] MEDS: DULoxetine DR CAP* 60 MG CAP.DR PO SCH (08:22)
[2018-12-22] MEDS: Gabapentin CAP(*) 300 MG PO SCH ×3 (08:22→21:06)
[2018-12-22] MEDS: Ascorbic Acid TAB* 500 MG PO SCH (08:22)
[2018-12-22] MEDS: Lisinopril TAB* 5 MG PO SCH (08:23)
[2018-12-22] MEDS: Insulin LISPRO* 1 UNITS UNIT SUBCUT SCH ×7 (08:25→21:03)
[2018-12-22] MEDS: Insulin GLARGINE(*) 1 UNITS UNIT SUBCUT SCH (21:05)
[2018-12-23] MEDS: Morphine TAB Extended Release (*) 30 MG TAB.ER PO SCH ×3 (01:00→17:27)
[2018-12-23] MEDS: diPHENhydraMINE PO* 25 MG PO PRN (03:10)
[2018-12-23] MEDS: oxyCODONE TAB* 5 MG TAB PO PRN ×5 (03:10→20:48)
[2018-12-23] MEDS: Acetaminophen TAB* 325 MG PO PRN ×2 (06:00→22:48)
[2018-12-23] MEDS: traMADol TAB* 50 MG PO PRN ×2 (06:00→22:49)
[2018-12-23] MEDS: Oxybutynin TAB* 5 MG PO PRN ×3 (06:00→17:26)
[2018-12-23] MEDS: Insulin LISPRO* 1 UNITS UNIT SUBCUT SCH ×7 (08:22→21:02)
[2018-12-23] MEDS: Vitamin THERAPEUTIC TAB PO SCH (08:27)
[2018-12-23] MEDS: busPIRone TAB* 15 MG PO SCH ×2 (08:27→20:48)
[2018-12-23] MEDS: DULoxetine DR CAP* 60 MG CAP.DR PO SCH (08:27)
[2018-12-23] MEDS: Ascorbic Acid TAB* 500 MG PO SCH (08:27)
[2018-12-23] MEDS: Gabapentin CAP(*) 300 MG PO SCH ×3 (08:28→20:48)
[2018-12-23] MEDS: Ferrous Sulfate TAB* 325 MG PO SCH (08:28)
[2018-12-23] MEDS: Lisinopril TAB* 5 MG PO SCH (08:28)
[2018-12-23] MEDS: Ondansetron TAB* 4 MG PO PRN (11:17)
[2018-12-23] MEDS: Docusate CAP* 100 MG PO PRN (20:48)
[2018-12-23] MEDS: Insulin GLARGINE(*) 1 UNITS UNIT SUBCUT SCH (21:01)
[2018-12-23 21:14] VITALS: BP 90/54
[2018-12-24] MEDS: Docusate CAP* 100 MG PO PRN (01:00)
[2018-12-24] MEDS: Morphine TAB Extended Release (*) 30 MG TAB.ER PO SCH ×3 (01:00→17:23)
[2018-12-24] MEDS: diPHENhydraMINE PO* 25 MG PO PRN (01:00)
[2018-12-24] MEDS: oxyCODONE TAB* 5 MG TAB PO PRN ×4 (03:00→15:22)
[2018-12-24] MEDS: Acetaminophen TAB* 325 MG PO PRN ×2 (04:20→14:43)
[2018-12-24] MEDS: traMADol TAB* 50 MG PO PRN ×2 (04:20→14:43)
[2018-12-24] MEDS: Insulin LISPRO* 1 UNITS UNIT SUBCUT SCH ×6 (07:49→17:23)
[2018-12-24] MEDS: DULoxetine DR CAP* 60 MG CAP.DR PO SCH (08:58)
[2018-12-24] MEDS: Ferrous Sulfate TAB* 325 MG PO SCH (08:58)
[2018-12-24] MEDS: Vitamin THERAPEUTIC TAB PO SCH (08:58)
[2018-12-24] MEDS: Gabapentin CAP(*) 300 MG PO SCH ×2 (08:58→14:43)
[2018-12-24] MEDS: busPIRone TAB* 15 MG PO SCH (08:58)
[2018-12-24] MEDS: Lisinopril TAB* 5 MG PO SCH (08:58)
[2018-12-24] MEDS: Ascorbic Acid TAB* 500 MG PO SCH (08:58)
--- NOTE | 2018-12-24 13:49 | DS ---
Subjective - Subjective Service Types: [address] [facility] Day Mgmt complex over 30 min Discharge Date: 12/24/18 Subjective: CC: I am going to try and see my grandson. Patient reported that his goal is to see his grandson in [place] in May. He mentioned that he plans to go to the gym for physical therapy and keep himself engaged with activities. He reported feeling okay with having nursing care at home until his parents return home. IDENTIFYING DATA: Jordan is a 48-year-old physically disabled male who was discharged couple of days ago from the behavioral science unit here, came back to the emergency room complaining of not having enough support system in the house, and having suicidal ideation with a plan to overdose on his insulin. CHIEF COMPLAINT: "If I'm sent home from the emergency department, I'll kill myself." HISTORY OF PRESENT ILLNESS: This patient with history of another hospitalization on 12/05/18 with similar circumstances was discharged on 12/13/18 to be back a day after of his discharge due to not having enough services at home. He was supposed to receive services from visiting nursing as well as jew services. We are not sure how much of that materialized when he was discharged. However, he was not satisfied with whatever he had, so he decided to come back to the hospital claiming that he was suicidal and if sent home, he will overdose on his insulin and kill himself. Reportedly, his parents are on a vacation trip out of town and will not be back until and he is unwilling to live by himself in his parents' house. During today' s evaluation, he denies any issues with his mood, thoughts, or perception. He was found sitting by the nurses' station and by the medication room window looking for his pain medication. Earlier during the day, hospitalist came to evaluate him and prescribed him his medical and pain medications. When he found out the schedule of pain medication , he was not happy; however, he was okay to receive Motrin and/or Tylenol for breakthrough pain. PAST PSYCHIATRIC HISTORY AND OTHER PSYCHOSOCIAL HISTORY: Sofie refer to Dr. Bateman's history and physical done on 12/05/18. Also refer to emergency room assessment for his physical health issue. Since the hospitalist came and evaluated him and did a physical on him, I will defer doing any physical today and please refer to that physical done by the hospitalist as well. MENTAL STATUS EXAMINATION: Jordan is average height, sick-looking male , who is walking with the help of a walker. He is alert and oriented to time, place, and person. Makes good contact. Speech is soft, slow, but goal directed and logical. Describes his mood as "okay." Observed affect is somewhat restricted. Denies any hallucination, delusions/paranoia, current suicidal or homicidal ideations. Intelligence appears to be average as evidenced by his educational background, fund of knowledge, and vocabulary. Memory functions are intact in all spheres. Insight and judgement appears to be poor. SUMMARY: This 48-year-old physically disabled male who was just discharged home, within a day or 2 came back to the emergency room requesting hospitalization because he thinks if he is alone home, he will overdose on his insulin and commit suicide. DIAGNOSTIC IMPRESSION: Mental Health Diagnoses: 1. Adjustment disorder with depressed mood. 2. History of major depressive disorder. 3. Pain disorder. Physical Health Diagnoses: 1. Type 1 diabetes mellitus. 2. Peripheral neuropathy. 3. Status post gastric bypass surgery. ALLERGIES: NKDA. TREATMENT RECOMMENDATIONS: Jordan will remain hospitalized on the behavioral science unit for his safety only. While on the unit, his code status will remain full. Supportive milieu, individual and group therapy will be initiated. As mentioned earlier, hospitalist has already started him on his complex medical medications and I will renew all his psychotropic medications that were prescribed during his discharge. Rest of the psychotropic medications will be deferred to his assigned psychiatrist, which I do not see any reason to change. 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 Condition at the time of discharge: At the time of discharge patient showed improvement of sleep and appetite. The patient was not a danger to self or others. The patient denied suicidal ideation , intent or plan. The patient denied homicidal targets, ideation, intent or plan. This patient participated in psychosocial rehabilitation and gained some insight into problems. The patient gained insight into mental illness, triggers, and treatment. The patient took medication as prescribed. The patient denied side effects of medication and objective signs of side effects were not evident. Therapy Resources were offered to the patient. Patient was given a supply of prescriptions at the time of discharge. The patient plans to attend follow up care with the follow up arrangements that were discussed and put in place. Patient was asked to keep appointments as scheduled, take medication as prescribed, have routine follow up care with their primary care physician and refrain from any use of alcohol or drugs. Objective - General Observations Appearance: Neat Appears Stated Age: Yes Stature: Thin Posture: Slumped Eye Contact: Average Behavior/Activity: WNL - Interaction Observations Attitude Towards Examiner: Cooperative Stated Mood: Euthymic Affect: Full Speech Pattern/Tone: Clear Thought Process: Coherent Perception: WNL Thought Content: WNL Hallucination Type: None Delusion Type: None - Cognitive Function Orientation: A&O x 4 Level of Consciousness: Awake Cognition: WNL Estimated Intelligence: Normal - Medication Compliance Cooperative with Inpatient Medication Regimen: Yes - Group Participation Participates in Group Activities: Yes Treatment Course & Assessment Clinical Course & Impression: Hospital course part A: 48 year old male with suicidal ideation of overdosing on insulin to end his life. Hospital course part B: Labs ordered included CBC, CMP, UDS, TSH, HBA1c, TSH, ABG, ECHO cardiogram, Toxicology screen, Urine analysis, and lipid profile.Vital signs were monitored during the course of admission. ECHO cardiogram findings Summary: 1. Left ventricle: Systolic function is normal. The estimated ejection fraction is 55-60%. Wall motion is normal; there are no regional wall motion abnormalities. 2. Right ventricle: Systolic function is normal. 3. Mitral valve: There is no significant regurgitation. 4. Aortic valve: There is no evidence of stenosis. There is no significant regurgitation. 5. Tricuspid valve: There is no significant regurgitation. 6. Pericardium, extracardiac: There is no significant pericardial effusion. 7. Impressions: No previous study was available for comparison. The patient was admitted to the adult behavioral unit and placed on 15 minute check for safety. At a later time the patient was on Q30 minute observation and staff pass privileges. With those limits being extended , there were no occurrence of behavioral incidents. The patient did well on the unit and went to groups. Interacted with peers had adequate sleep and regular appetite. Tolerated medication changes without side effects. Group therapy and services were offered. The risks, benefits, and alternative treatment options were discussed as well as of the risks of refusing treatment. Treatment associated risks discussed. After this discussion and made an acknowledgement of this understanding. Follow up care appointments were put in place for follow up care. The importance of monitoring for metabolic changes was discussed and acknowledgement of this understanding was made. Improvements in patient from the time of admission include: Improved affect, sleep and decrease in anxiety. No longer suicidal and no longer having feelings of hopelessness. The patient expressed readiness for discharge home. The patient presents with a broader range of affect, and the absence of depressed mood, delusions, perceptual disturbances. The patient denied suicidal and or homicidal ideation intent or plan. Overall, the patient responded well to inpatient treatment as evidenced by their report of strengthening of coping mechanisms, reduced distress, and more positive outlook on circumstances. Of note there was an improvement of recognizing how emotional state can effect mood and behavior. Safety precautions were put in place which included involving the patient and their family to closely monitor for changes in mental state. In addition, implementing follow up care, screening for the need to remove/securing firearms , weapons and stockpile of medications. Patient/ family instructed to immediately call 911 should any safety concerns arise. Nursing care staff to dispense medications. Patient advised of the lethality and dangerousness of combining medications with pain medications and/ or with alcohol and acknowledged this understanding. The patient was advised of the 24 hour / 7 days a week availability of the emergency room and to call 911 in the event of an emergency such as being suicidal and/ or homicidal. The patient was informed of the contact information for [facility], Suicide Prevention and Crisis Services, National Suicide Prevention Lifeline, [facility], Alcoholics Anonymous, and [facility]. Medications increased included cymbalta to 60mg daily. A prior authorization was submitted and initially denied and a appeal was submitted and a doc to doc occurred and request was denied. Discontinuation syndrome was addressed with abruptly stopping cymbalta. He was provided a 14 day supply of Effexor 75mg daily. Patient reported having a ample supply of the rest of his medications and plans to get refills at his outpatient follow up appointments. Family meeting took place during last admission and family contacted during this admission. They plan to return from vacation . He plans to having nursing care staff at his house to assist with medications. Consults included to medicine hospital team to manage medical issues. Dr. Vicente plans to remove melchor during follow up appointment. Patient will be discharged to his home with nursing care assistance. Follow up appointment at [facility] 12/26/18 1045am. Patient informed of follow up appointment times. See more details for follow of care in discharge plan. Risk factors: , Age, single, history of mental illness. Prior suicide attempt. Protective factors: Currently no suicidal ideation, intent or plan. Buddhism, Has children and grandchildren. Has jew and family support system. Currently no feelings of hopelessness, not in an occupation of social isolation, no family history of suicide, doesnt have access to firearms. Doesn t have command hallucinations and or psychotic features at this time. No history of substance abuse. No history of alcohol abuse. Not a anniversary of a loss of a loved one. No changes in relationship status, housing, job, or school. Currently future orientated. Patient engaged in treatment and compliant with medication. VBG pH 7.54 (7.32-7.43) H 12/15/18 08:58 Sodium 138 mmol/L (135-145) 12/15/18 08:47 Potassium 4.0 mmol/L (3.5-5.0) 12/15/18 08:47 BUN 24 mg/dL (6-24) 12/15/18 08:47 Creatinine 0.58 mg/dL (0.67-1.17) L 12/15/18 08:47 Hemoglobin A1c 7.5 % (4.0-5.6) H 12/15/18 08:58 Calcium 8.7 mg/dL (8.6-10.3) 12/15/18 08:47 AST 38 U/L (13-39) 12/15/18 08:47 ALT 45 U/L (7-52) 12/15/18 08:47 Triglycerides 86 mg/dL 12/17/18 06:27 Cholesterol 127 mg/dL 12/17/18 06:27 LDL Cholesterol 80 mg/dL 12/17/18 06:27 Acetaminophen (Tylenol Tab*) 650 mg PO Q4H PRN PRN Reason: PAIN or TEMP > 101 F Last Admin: 12/24/18 04:20 Dose: 650 mg Al Hydrox/Mg Hydrox/Simethicone (Maalox Plus*) 30 ml PO Q4H PRN PRN Reason: INDIGESTION Ascorbic Acid (Vitamin C Tab*) 500 mg PO DAILY [facility] Last Admin: 12/24/18 08:58 Dose: 500 mg Buspirone HCl (Buspar Tab *) 15 mg PO BID [facility] Last Admin: 12/24/18 08:58 Dose: 15 mg Dextrose (D50w Syringe 50 Ml*) 12.5 gm IV PUSH .FOR FS < 60 - SS PRN PRN Reason: FS < 60 Diphenhydramine HCl (Benadryl Po*) 25 mg PO BEDTIME PRN PRN Reason: INSOMNIA Last Admin: 12/24/18 01:00 Dose: 25 mg Docusate Sodium (Colace Cap*) 100 mg PO BID PRN PRN Reason: CONSTIPATION Last Admin: 12/24/18 01:00 Dose: 100 mg Duloxetine HCl (Cymbalta Cap*) 60 mg PO DAILY [facility] Last Admin: 12/24/18 08:58 Dose: 60 mg Ferrous Sulfate (Ferrous Sulfate Tab*) 325 mg PO DAILY [facility] Last Admin: 12/24/18 08:58 Dose: 325 mg Gabapentin (Neurontin Cap(*)) 300 mg PO TID [facility] Last Admin: 12/24/18 08:58 Dose: 300 mg Insulin Glargine (Lantus(*)) 5 units SUBCUT BEDTIME [facility] Last Admin: 12/23/18 21:01 Dose: Not Given Insulin Human Lispro (Humalog*) 0 units SUBCUT AC [facility]; Protocol Last Admin: 12/24/18 12:29 Dose: 3 units Insulin Human Lispro (Humalog*) 0 units SUBCUT ACHS [facility]; Protocol Last Admin: 12/24/18 12:31 Dose: 1 units Lisinopril (Prinivil Tab*) 2.5 mg PO DAILY [facility] Last Admin: 12/24/18 08:58 Dose: 2.5 mg Morphine Sulfate (Ms Contin(*)) 60 mg PO Q8H [facility] Last Admin: 12/24/18 08:57 Dose: 60 mg Multivitamins (Theragran Tab*) 1 tab PO DAILY [facility] Last Admin: 12/24/18 08:58 Dose: 1 tab Naloxone HCl (Narcan Nasal [place]) 4 mg INTRANASAL .REPEAT Q2M to Q3M PRN PRN Reason: OPIATE OVERDOSE Ondansetron HCl (Zofran Tab*) 4 mg PO Q6H PRN PRN Reason: NAUSEA Last Admin: 12/23/18 11:17 Dose: 4 mg Oxybutynin Chloride (Ditropan Tab*) 5 mg PO QID PRN PRN Reason: SPASMS - BLADDER Last Admin: 12/23/18 17:26 Dose: 5 mg Oxycodone HCl (Roxycodone Tab*) 10 mg PO Q4H PRN PRN Reason: PAIN Last Admin: 12/24/18 11:21 Dose: 10 mg Polyethylene Glycol/Electrolytes (Miralax*) 17 gm PO 0800,2100 PRN PRN Reason: CONSTIPATION Senna (Senokot Tab*) 1 tab PO BID PRN PRN Reason: CONSTIPATION Last Admin: 12/23/18 06:00 Dose: 1 tab Tramadol HCl (Ultram*) 50 mg PO TID PRN PRN Reason: PAIN - BREAKTHROUGH Last Admin: 12/24/18 04:20 Dose: 50 mg Merits Inpatient Hospitalization: No Clear for Discharge: Adequate Clinical Respons Discharge Planning - Discharge Planning Discharge Plan: Outpatient Follow Up Outpatient Program: [facility] Recommendations for Continuing Care: Medication Management Medications: Current Medications Acetaminophen (Tylenol Tab*) 650 mg PO Q4H PRN PRN Reason: PAIN or TEMP > 101 F Last Admin: 12/24/18 04:20 Dose: 650 mg Al Hydrox/Mg Hydrox/Simethicone (Maalox Plus*) 30 ml PO Q4H PRN PRN Reason: INDIGESTION Ascorbic Acid (Vitamin C Tab*) 500 mg PO DAILY [facility] Last Admin: 12/24/18 08:58 Dose: 500 mg Buspirone HCl (Buspar Tab *) 15 mg PO BID [facility] Last Admin: 12/24/18 08:58 Dose: 15 mg Dextrose (D50w Syringe 50 Ml*) 12.5 gm IV PUSH .FOR FS < 60 - SS PRN PRN Reason: FS < 60 Diphenhydramine HCl (Benadryl Po*) 25 mg PO BEDTIME PRN PRN Reason: INSOMNIA Last Admin: 12/24/18 01:00 Dose: 25 mg Docusate Sodium (Colace Cap*) 100 mg PO BID PRN PRN Reason: CONSTIPATION Last Admin: 12/24/18 01:00 Dose: 100 mg Duloxetine HCl (Cymbalta Cap*) 60 mg PO DAILY [facility] Last Admin: 12/24/18 08:58 Dose: 60 mg Ferrous Sulfate (Ferrous Sulfate Tab*) 325 mg PO DAILY [facility] Last Admin: 12/24/18 08:58 Dose: 325 mg Gabapentin (Neurontin Cap(*)) 300 mg PO TID [facility] Last Admin: 12/24/18 08:58 Dose: 300 mg Insulin Glargine (Lantus(*)) 5 units SUBCUT BEDTIME [facility] Last Admin: 12/23/18 21:01 Dose: Not Given Insulin Human Lispro (Humalog*) 0 units SUBCUT AC [facility]; Protocol Last Admin: 12/24/18 12:29 Dose: 3 units Insulin Human Lispro (Humalog*) 0 units SUBCUT ACHS [facility]; Protocol Last Admin: 12/24/18 12:31 Dose: 1 units Lisinopril (Prinivil Tab*) 2.5 mg PO DAILY [facility] Last Admin: 12/24/18 08:58 Dose: 2.5 mg Morphine Sulfate (Ms Contin(*)) 60 mg PO Q8H [facility] Last Admin: 12/24/18 08:57 Dose: 60 mg Multivitamins (Theragran Tab*) 1 tab PO DAILY [facility] Last Admin: 12/24/18 08:58 Dose: 1 tab Naloxone HCl (Narcan Nasal [place]) 4 mg INTRANASAL .REPEAT Q2M to Q3M PRN PRN Reason: OPIATE OVERDOSE Ondansetron HCl (Zofran Tab*) 4 mg PO Q6H PRN PRN Reason: NAUSEA Last Admin: 12/23/18 11:17 Dose: 4 mg Oxybutynin Chloride (Ditropan Tab*) 5 mg PO QID PRN PRN Reason: SPASMS - BLADDER Last Admin: 12/23/18 17:26 Dose: 5 mg Oxycodone HCl (Roxycodone Tab*) 10 mg PO Q4H PRN PRN Reason: PAIN Last Admin: 12/24/18 11:21 Dose: 10 mg Polyethylene Glycol/Electrolytes (Miralax*) 17 gm PO 0800,2100 PRN PRN Reason: CONSTIPATION Senna (Senokot Tab*) 1 tab PO BID PRN PRN Reason: CONSTIPATION Last Admin: 12/23/18 06:00 Dose: 1 tab Tramadol HCl (Ultram*) 50 mg PO TID PRN PRN Reason: PAIN - BREAKTHROUGH Last Admin: 12/24/18 04:20 Dose: 50 mg Discharge Planning: Prescriptions provided for discharge [x] Yes [] No Follow up care details as per social work arrangements. Patient response to discharge plan: [] eager for discharge [x] agreeable with discharge plan [] ambivalent about discharge [] disagrees with discharge today
== END 2018-12-24 18:00 | DRG 757 ==
LOC: ED 16:08 → BSU 12-15 14:35 → OBSVTOIN 12-15 14:35
PROVIDERS: ADMIT Psychiatry & Neurology Psychiatry; ATTEND Psychiatry & Neurology Psychiatry
PROC: GZHZZZZ Group Psychotherapy (ICD-10-PCS; principal; 2018-12-19)
DX: F06.31 Mood disorder due to known physiological condition with depressive features (principal); R45.851 Suicidal ideations; F43.21 Adjustment disorder with depressed mood; I10 Essential (primary) hypertension; G47.30 Sleep apnea, unspecified; K58.9 Irritable bowel syndrome, unspecified; N40.0 Benign prostatic hyperplasia without lower urinary tract symptoms; M19.90 Unspecified osteoarthritis, unspecified site; M62.50 Muscle wasting and atrophy, not elsewhere classified, unspecified site; H26.9 Unspecified cataract; E10.65 Type 1 diabetes mellitus with hyperglycemia; N31.9 Neuromuscular dysfunction of bladder, unspecified; G89.29 Other chronic pain; R60.0 Localized edema; K59.00 Constipation, unspecified; D50.9 Iron deficiency anemia, unspecified; E10.42 Type 1 diabetes mellitus with diabetic polyneuropathy; R80.9 Proteinuria, unspecified; G43.909 Migraine, unspecified, not intractable, without status migrainosus; F41.9 Anxiety disorder, unspecified; Z90.49 Acquired absence of other specified parts of digestive tract; Z91.5 Personal history of self-harm; Z98.84 Bariatric surgery status; Z56.0 Unemployment, unspecified; Z87.891 Personal history of nicotine dependence; Z82.3 Family history of stroke; Z83.3 Family history of diabetes mellitus; Z79.4 Long term (current) use of insulin
CPT/HCPCS: 36415; 80053; 80061; 80307; 80320; 80329; 81003; 81015; 82803; 83036; 84156; 84443; 85025; 87077; 87086; 87186; 90853; 93306; 99222; 99233; 99238; 99285; A9270-GY; G0480; G8978-GP-CI; G8979-GP-CI; G8980-GP-CI

== ENCOUNTER 2019-02-21 19:57 | Emergency (ER) | payer OTHER ==
--- OUTSIDE RECORDS SUMMARY | 2019-02-21 20:33 | XMS REPORT | Continuity of Care Document ---
:1970 External Reference #:[id number] Author Name Shravan Hannon DO Address [address] [place] [address] [place] [address] Care Team Providers Name Role Phone Sanford Jamison DO Care Team Information Family Sociologist Unavailable Sanford Jamison DO Primary Care Physician Unavailable Payers Date Identification Numbers Payment Provider Subscriber Effective: 2018 Policy Number: [id number] Medicaid Taz Reynolds Expires: 2018 Group Name: 1 1 [facility] [place] [employer] PayID: [id number] [facility] [place] [address] Effective: 2018 Policy Number: [id number] [facility] Taz Reynolds PayID: [id number] [place] [address] Problems Active Problems Provider Date Morbid obesity Lino Conroy MD Onset: 11/21/2011 Irritable bowel syndrome Lino Conroy MD Onset: 11/21/2011 Type 2 diabetes mellitus Lino Conroy MD Onset: 11/21/2011 Note: on insulin -A1c 11.1 (2011) Essential hypertension Lino Conroy MD Onset: 11/21/2011 Hemorrhage of rectum and anus DAGOBERTO Mackay Onset: 04/23/2012 Anal pain DAGOBERTO Mackay Onset: 04/23/2012 Social History Type Date Description Comments Sex Unknown ETOH Use Denies alcohol use Tobacco Use Start: Unknown End: Unknown Patient is a former smoker Smoking Status Reviewed: 01/08/19 Patient is a former smoker Allergies, Adverse Reactions, Alerts Description No Known Drug Allergies Medications Active Medications SIG Qnty Indications Ordering Provider Date Amitiza take one capsule 60caps Shravan Hannon DO 02/05/2019 24mcg by mouth twice a Capsules day Miralax 17g mixed and 1020gm Shravan Hannon, DO 10/22/2018 [id number] Powder dissolved into four to eight ounces of any beverage 2-3 times daily. Dispense as written Lisinopril 1 by mouth every Unknown 2.5mg day Tablets Admelog Solostar Sliding Scale Unknown 100Unit/ML Solution Pen-Inject Gabapentin tid Unknown 300mg Capsules Venlafaxine HCL Daily Unknown 75mg Tablets Buspirone HCL bid Unknown 10mg Tablets Ondansetron Daily Unknown 4mg Tablets Dispers Morphine Sulfate ER tid Unknown 60mg Tablets ER Tramadol HCL tid prn Unknown 50mg Tablets Lantus Solostar Inject 8 Units In Unknown Evening 100Unit/ML Solution Pen-Inject Humalog sliding scale Unknown Oxycodone HCL every 4 hours as 90tabs Unknown 10mg needed Tablets Metformin HCL take one tablet by Unknown 1000mg mouth twice a day Tablets History Medications Colyte With Flavor by mouth as 4000ml Shravan Fairbanksan, DO 11/07/2018 - Packs directed 01/08/2019 240gm Solution Rec Lisinopril/Hydrochlorot Lino Conroy, 11/21/2011 - hiazide 09/06/2018 20-12.5mg Tablets Lantus 12 U bid Lino Conroy, 11/21/2011 - 100Unit/ML Solution 01/08/2019 Bystolic Lino Conroy, 11/21/2011 - 5mg Tablets 09/06/2018 Zoloft Lino Conroy, 11/21/2011 - 50mg Tablets 09/06/2018 Simvastatin hs Lino Conroy, 11/21/2011 - 40mg Tablets 09/06/2018 Docusate Sodium Unknown - 100mg 10/07/2018 Capsules Ergocalciferol 1 by mouth weekly 8caps Unknown - [id number] 01/08/2019 Capsules Oxycodone-Acetaminophen Unknown - 10/07/2018 5-325mg Tablets Lisinopril 1 by mouth every Unknown - 20mg Tablets day 01/08/2019 Lyrica take one capsule 90caps Unknown - 50mg Capsules by mouth three 01/08/2019 times a day, maximum 3 per day Chantix twice a day 60tabs Unknown - 1mg Tablets 01/08/2019 Miralax use 1 capful once Unknown - Powder or twice daily 10/22/2018 for constipation. Zinc Unknown - 50mg Tablets 01/08/2019 Magnesium Unknown - 250mg Tablets 01/08/2019 Alfuzosin HCL ER Unknown - 10mg 01/08/2019 Tablets ER 24HR Amitiza take one capsule Unknown - 24mcg Capsules by mouth Daily 02/05/2019 Vital Signs Date Vital Result Comment 01/08/2019 2:28pm Height 67.50 inches 5'7.50" Weight 156.00 lb BP Systolic 115 mmHg BP Diastolic 75 mmHg Heart Rate 78 /min BMI (Body Mass Index) 24.1 kg/m2 10/08/2018 12:48pm Height 67.50 inches 5'7.50" Weight [...] Test Result H/L Range Note Laboratory test [facility] [place] Pathology SEE RESULT 1 finding 9 Order BELOW Inr/Protime [facility] Inr 0.99 N 0.82-1.09 2 9 Pathology [facility] Interpretation See Comment 3 Consultation 9 Report Electronically Signed See Comment 4 Material Received See Comment 5 6 Addendum See Comment 7 Comp Metabolic Panel 01/08/2019 [facility] Sodium 142 mmol/L N 135-145 Potassium 4.7 mmol/L N 3.5-5.0 Chloride 105 mmol/L N 101-111 Co2 Carbon Dioxide 35 mmol/L High 22-32 Anion Gap 2 mmol/L N 2-11 Glucose 68 mg/dL Low 70-100 Blood Urea Nitrogen 35 mg/dL High 6-24 Creatinine 0.64 mg/dL Low 0.67-1.17 BUN/Creatinine Ratio 54.7 High 8-20 Calcium 8.6 mg/dL N 8.6-10.3 Total Protein 5.4 g/dL Low 6.4-8.9 Albumin 3.1 g/dL Low 3.2-5.2 Globulin 2.3 g/dL N 2-4 Albumin/Globulin Ratio 1.3 N 1-3 Total Bilirubin 0.20 mg/dL N 0.2-1.0 Alkaline Phosphatase 148 U/L High 34-104 Alt 48 U/L N 7-52 Ast 38 U/L N 13-39 Egfr Non- 134.1 >60 Egfr 162.2 >60 8 Laboratory test finding 01/08/2019 [facility] Inr 0.97 N 0.82-1.09 9 Partial Thrombo Time PTT 34.2 seconds N 26.0-36.3 10 Laboratory test 11/30/2018 [facility] Point of Care 135 mg/dL High 70-100 11 finding Glucose Laboratory test 11/30/2018 [facility] Point of Care 158 mg/dL High 70-100 12 finding Glucose Xray 09/20/2018 [facility] Radiology MRI Lumbar <pending> Spine W/Wo Urine Culture And 09/13/2018 [facility] Urine Culture SEE RESULT 13 Sensitivities BELOW Urinalysis Profile 09/13/2018 [facility] Urine Color Yellow Urine Appearance Clear Urine Specific [place] 1.021 N 1.010-1.030 Urine pH 7.0 N [...] Bacteria Absent Absent Laboratory test finding 09/13/2018 [facility] Lipase 56 U/L N 11.0-82.0 C Reactive Protein 5.83 mg/L N <8.01 Troponin-I (TnI) 0.01 ng/mL <0.04 14 Comp Metabolic Panel 09/13/2018 [facility] Sodium 136 mmol/L N 135-145 Potassium 4.5 [...] Egfr Non- 127.1 >60 Egfr 153.8 >60 15 Laboratory test finding 09/13/2018 [facility] Lactic Acid 1.7 mmol/L N 0.5-2.0 16 CBC Auto Diff 09/13/2018 [facility] White Blood Count 5.7 10^3/uL N 3.5-10.8 [...] Blood Cells % 0 Laboratory test 09/13/2018 [facility] Point of Care 65 mg/dL Low 70-100 17 finding Glucose Laboratory test 09/13/2018 [facility] Point of Care 54 mg/dL Low 70-100 18 finding Glucose Laboratory test 08/31/2018 [facility] Surgical SEE RESULT 19 finding Interface Order BELOW Xray 08/30/2018 [facility] Rad[place] CT, Abd & Pelvis <pending> W/ Contrast Clotest 12/13/2011 [facility] M 20 --- <SEE NOTE> Surgical 12/13/2011 [facility] Surgical 21 Pathology Pathology --- <SEE NOTE> 1 SEE RESULT BELOW Name: TAZ REYNOLDS : [address]: Shravan Hannon DO Acct: [id number] Unit: [id number] AGE: 48 Location: Re01/18/19 SEX: M Status: REG REF SPEC: [id number] JACKSON: 01/18/19-[address] [facility] [address]: Shravan Hannon DO REQ: [id number] RECD: 01/18/19 STATUS: SOUT _ ORDERED: LEVEL 5, IMMUNO-FIRST, IMMUNO-ADDL, SPEC ST NON-ORG FINAL DIAGNOSIS Liver, percutaneous ultrasound guided core biopsy: --Liver with mild periportal infiltrates with features of mild biliary stasis and rare periportal epithelioid granulomas. See comment. Comment: The liver demonstrates well-preserved portal tracts with minimal to mild infiltrates composed of lymphocytes primarily. Bile ductules are present though a few are somewhat atrophic and there is early bile duct metaplasia (accentuated on CK7 stain with appropriate controls). Two well-defined periportal epithelioid granulomas are noted (positive on CD68 stain with appropriate control. Though subtle these findings are somewhat suggestive of primary biliary cholangitis. This case will be sent to [facility] pathology for review by a hepato-pathologist. Their interpretation will be reported in an addendum. This case was discussed with Dr. Hannon and on 01/23/2019. PRE-OPERATIVE DIAGNOSIS R74.0 GROSS DESCRIPTION The specimen is received in formalin with no source identified and a requisition labeled, Ultrasound-Guided Core Liver Biopsy, and consists of a 2.5 x 0.1 cm fishman- orange soft tissue core which is submitted entirely in one cassette. CONTINUED ON NEXT PAGE DEPARTMENT OF PATHOLOGY, [address] [place] [address] Wild Alves M.D. Director JIMBO # [id number] RUN DATE: 01/24/19 [facility] LAB LIVE PAGE 2 Patient: TAZ REYNOLDS [id number] (Continued) GROSS DESCRIPTION (Continued) Signed by and Reported on: Wild Alves MD 1024 END OF REPORT DEPARTMENT OF PATHOLOGY, [address] [place] [address] Wild Alves M.D. Director CHOI # [id number] SEE RESULT BELOW Name: TAZ REYNOLDS : [address]: Shravan Hannon DO Acct: [id number] Unit: [id number] AGE: 48 Location: Re01/18/19 SEX: M Status: REG REF SPEC: [id number] JACKSON: 01/18/19-[address]: Shravan Hannon DO REQ: [id number] RECD: 01/18/19-1530 STATUS: SOUT _ ORDERED: DAS CONSULT, LEVEL 5, IMMUNO-FIRST, IMMUNO-ADDL, SPEC ST NON-ORG ADDENDUM Consultation with Dr.Rondell Neel Olmos at [facility] [place], outside accession number [id number],our case [id number] reported on 02/01/19 and received on 01/25/19. Pathology Consult Received: 25 Jan 2019 09:48 Reported: 01 Feb 2019 09:57 Interpretation FINAL DIAGNOSIS Liver, needle biopsy ([id number]; 01/18/2019): Portal and lobular non- necrotizing well formed granulomas. See comment. COMMENT The liver biopsy is taken from a 48-year-old man with a history of transient transaminitis followed by persistent elevation of alkaline phosphatase (mid 100s). The liver biopsy is adequate for interpretation. The main finding is one of well formed portal and lobular epithelioid non-necrotizing granulomas. The portal vein branches and arterioles are intact. No florid bile duct lesions are identified. There is mild bile ductular reaction. The interlobular bile ducts show minor nuclear irregularity but no lymphocytic cholangitis. There is no significant portal lymphocytic inflammation. The acinar parenchyma does not show macrovesicular steatosis. There is minimal lobular inflammation. Trichrome stain: There is mild portal fibrosis Keratin 7: Highlights mild bile ductular reaction and a rare attenuated bile duct Reticulin stain (performed at [facility]): No convincing features of nodular regenerative hyperplasia Rhodanine stain (performed at [facility]): Negative for periportal copper accumulation. The prioritized etiologic differential diagnoses are infection, drug-induced liver injury CONTINUED ON NEXT PAGE DEPARTMENT OF PATHOLOGY, [address] [place] [address] Wild Alves M.D. Director [facility] # [id number] RUN DATE: 02/05/19 [facility] LAB LIVE PAGE 2 Patient: TAZ REYNOLDS [id number] (Continued) ADDENDUM (Continued) and sarcoid (if the prior diagnoses are excluded clinically). Correlation with microbiologic studies, the patient's medication list and review for other features of sarcoidosis may help with the resolution of this differential diagnosis. The histologic findings are not classic for primary biliary cholangitis (PBC). PBC typically shows dense portal inflammation and lymphocytic cholangitis and may show florid bile duct lesions. None of the these findings are seen in this case. AFB and GMS stains will be performed and the results reported in an addendum. A comprehensive review of records that included laboratory results was performed to assist in the diagnostic assessment of the case. Thank you for sharing this case with me. Your submitted material is enclosed. If you have any questions, please do not hesitate to reach me at [phone]. Report electronically signed by Mike Olmos M.D. [phone] I verify that I have examined all relevant slides/materials for the specimen( s) and rendered or confirmed the diagnosis. Material Received A. [id number]: Liver 4 stained slides, 1 block Addendum Signed (signature on file) Miracle Bruno MD 1439 FINAL DIAGNOSIS Liver, percutaneous ultrasound guided core biopsy: --Liver with mild periportal infiltrates with features of mild biliary stasis and rare periportal epithelioid granulomas. See comment. Comment: The liver demonstrates well-preserved portal tracts CONTINUED ON NEXT PAGE DEPARTMENT OF PATHOLOGY, [address] [place] [address] Wild Alves M.D. Director JIMBO # [id number] RUN DATE: 02/05/19 [facility] LAB LIVE PAGE 3 Patient: TAZ REYNOLDS [id number] (Continued) SPECIMEN COMMENTS (Continued) with minimal to mild infiltrates composed of lymphocytes primarily. Bile ductules are present though a few are somewhat atrophic and there is early bile duct metaplasia (accentuated on CK7 stain with appropriate controls). Two well-defined periportal epithelioid granulomas are noted (positive on CD68 stain with appropriate control. Though subtle these findings are somewhat suggestive of primary biliary cholangitis. This case will be sent to [facility] pathology for review by a hepato-pathologist. Their interpretation will be reported in an addendum. This case was discussed with Dr. Hannon and on 01/23/2019. PRE-OPERATIVE DIAGNOSIS R74.0 GROSS DESCRIPTION The specimen is received in formalin with no source identified and a requisition labeled, Ultrasound-Guided Core Liver Biopsy, and consists of a 2.5 x 0.1 cm fishman- orange soft tissue core which is submitted entirely in one cassette. Signed by and Reported on: Wild Alves MD 1024 END OF REPORT DEPARTMENT OF PATHOLOGY, [address] [place] [address] Wild Alves M.D. Director [facility] # [id number] 2 Standard intensity warfarin therapeutic range: 2.0-3.0 High intensity warfarin therapeutic range: 2.5-3.5 3 FINAL DIAGNOSIS Liver, needle biopsy ([id number]; 01/18/2019): Portal and lobular non-necrotizing well formed granulomas. See comment. COMMENT The liver biopsy is taken from a 48-year-old man with a history of transient transaminitis followed by persistent elevation of alkaline phosphatase (mid 100s). The liver biopsy is adequate for interpretation. The main finding is one of well formed portal and lobular epithelioid non-necrotizing granulomas. The portal vein branches and arterioles are intact. No florid bile duct lesions are identified. There is mild bile ductular reaction. The interlobular bile ducts show minor nuclear irregularity but no lymphocytic cholangitis. There is no significant portal lymphocytic inflammation. The acinar parenchyma does not show macrovesicular steatosis. There is minimal lobular inflammation. Trichrome stain: There is mild portal fibrosis Keratin 7: Highlights mild bile ductular reaction and a rare attenuated bile duct Reticulin stain (performed at [facility]): No convincing features of nodular regenerative hyperplasia Rhodanine stain (performed at [facility]): Negative for periportal copper accumulation. The prioritized etiologic differential diagnoses are infection, drug-induced liver injury and sarcoid (if the prior diagnoses are excluded clinically). Correlation with microbiologic studies, the patient's medication list and review for other features of sarcoidosis may help with the resolution of this differential diagnosis. The histologic findings are not classic for primary biliary cholangitis (PBC). PBC typically shows dense portal inflammation and lymphocytic cholangitis and may show florid bile duct lesions. None of the these findings are seen in this case. AFB and GMS stains will be performed and the results reported in an addendum. A comprehensive review of records that included laboratory results was performed to assist in the diagnostic assessment of the case. Thank you for sharing this case with me. Your submitted material is enclosed. If you have any questions, please do not hesitate to reach me at [phone]. 4 Mike Olmos M.D. [phone] I verify that I have examined all relevant slides/materials for the specimen(s) and rendered or confirmed the diagnosis. 5 Miranda [id number]: Liver 4 stained slides, 1 block 6 Test Performed by: [address] [address] 7 REVISED RESULTS AFB and GMS stains were performed on outside block [id number]. AFB: Negative GMS: Negative Signed by Mike Olmos M.D. [phone] 02/05/2019 3:39 PM 8 Because ethnic data is not always readily [...] 15-29 5 Kidney failure <15 (or dialysis) 9 Standard intensity warfarin therapeutic range: 2.0-3.0 High intensity warfarin therapeutic range: 2.5-3.5 10 [id number] 11 Ceramics Instructor: [id number] Ceramics Instructor: [id number] 13 SEE RESULT BELOW Name: GAILTAZ : [address]: Michael Alexis MD Acct: [id number] Unit: [id number] AGE: 48 Location: [place] [address] Re09/14/18 SEX: M Status: ADM IN SPEC: [id number] JACKSON: 09/14/[address]: Farhan Pham MD REQ: [id number] RECD: 09/14/18 STATUS: IBAN MARQUIS DR: DO Sanford Mayo DO _ SOURCE: URINE SPDESC: ORDERED: Urine Culture Procedure Result Reported Site Urine Culture Final 09/15/18926 ML No Growth (<1,000 CFU/mL) * ML - Main Lab . END OF REPORT DEPARTMENT OF PATHOLOGY, [address] [place] [address] Wild Alves M.D. Director [facility] # [id number] 14 Troponin-I testing on Plasma Separator Tubes (PST) has a known false positive rate of 0.20-0.40%. All positive troponins reflex immediate secondary confirmatory testing. 15 Because ethnic data is not always readily [...] 15-29 5 Kidney failure <15 (or dialysis) 16 [facility] Severe Sepsis and Septic Shock Management Bundle Measure requires all lactic acids initially measuring >2.0 mmol/L be repeated. 17 Ceramics Instructor: [id number] 18 Ceramics Instructor: [id number] 19 SEE RESULT BELOW Name: TAZ REYNOLDS : [address]: Teresa Vides MD Acct: [id number] Unit: [id number] AGE: 48 Location: [place] [address] Re08/30/18 Dis: 09/01/18 SEX: M Status: DIS Fatimah SPEC: [id number] JACKSON: 08/31/18-[address] [facility] [address]: Shravan Hannon DO REQ: [id number] RECD: 08/31/189897 STATUS: SHAN MARQUIS DR: Teresa Mcclendon MD [...] by and Reported on: Wild Alves MD 9408 END OF REPORT DEPARTMENT OF PATHOLOGY, [address] [place] [address] Wild Alves M.D. Director JIMBO # [id number] RUN DATE: 12/14/11 [facility] NMI LIVE PAGE 1 RUN TIME: 726 Specimen Inquiry RUN USER: INTERFACE Name: TAZ REYNOLDS Status: REG REF Re12/13/11 Age/Sex: 41/M Unit#: [id number] Location: [facility] : [birth year] SPEC #: [id number] JACKSON: 12/13/11 STATUS: COMP REQ #: [id number] RECD: 12/13/[address]: Lino Conroy MD SOURCE: CLOTEST ENTR: 12/13/[address]: Mac Mcclendon MD SPDESC: Vandana Lai RN ORDERED: CLOTEST ACT WKST: MISC 12/14/11 #1 Procedure Result Verified Site > CLOTEST Final 12/14/11725 ML CLOTEST NEGATIVE - [facility] State Permit #[id number] [address] [place] [address] DEPARTMENT OF PATHOLOGY, [address] [place] [address] [facility] Permit #[id number] Sara Ac M.D. Skip Tender 21 ---- RUN DATE: 12/14/11 [facility] NMI LIVE PAGE 1 RUN TIME: 1401 Specimen Inquiry RUN USER: INTERFACE -- Name: TAZ REYNOLDS Duy Status: REG REF Re12/13/11 Age/Sex: 41/M Unit#: [id number] Location: [facility] : 72 -- Specimen: [id number] SOUT Spec Date:12/13/11- Subm Dr: Lino Conroy MD Spec Type: SURGICAL P Received:12/13/11-1211 Copies to: Mac RUSSELL SPECIMEN BIOPSY THICKENED FOLD THIRD PORTION DUODENUM [...] 12/14/11 1402 -- -- DEPARTMENT OF PATHOLOGY, [address] [place] [address] [facility] Permit #[id number] Wild Alves M.D. Director Ciro Hernandez M.D. Regulatory Internship Dir gerardo -- Procedures Date Code Description Status 11/30/2018 35571 Colonoscopy Completed 08/31/2018 73340 EGD+Biopsy Single Or Multiple Completed 12/13/2011 24376 EGD+Biopsy Single Or Multiple Completed Encounters Type Date Location Provider Dx Diagnosis Office Visit 01/08/2019 Gastroenterology Ryan Mayo4.8 Abnormal levels 2:30p [facility] of other serum enzymes R74.0 Nonspec elev of levels of transamns & lactic acid dehydrgnse R94.5 Abnormal results of liver function studies K59.03 Drug induced constipation Office Visit 10/08/2018 Gastroenterology Shravan Hannon R74.0 Nonspec elev of 1:00p [facility] DO levels of transamns & lactic acid dehydrgnse K59.00 Constipation, unspecified Office Visit 09/07/2018 Gastroenterology Ryan Mayo4.0 Nonspec elev of 2:15p [facility] levels of transamns & lactic acid dehydrgnse K59.00 Constipation, unspecified K59.03 Drug induced constipation R74.8 Abnormal levels of other serum enzymes R52 Pain, unspecified M79.10 Myalgia, unspecified site Office Visit 05/07/2012 [facility] [place] 569.42 Pain Anal Or 3:15p [facility] Trace, Rectal ELEMENT[employer]ER-C Office Visit 04/23/2012 [facility] [place] 569.3 Hemorrhage 2:00p [facility] 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 569.42 Pain Anal Or Rectal Office Visit 11/21/2011 1:00p Gastroenterology Lino Ng 786.50 Pain Chest [facility] MD Rafiq Unspec 278.01 Obesity Morbid 564.1 Irritable Bowel Syndrome 250.00 Diabetes Mellitus W/O Compl Type II Or Unspec Controlled Plan of Treatment Future Appointment(s):03/11/2019 11:30 am - Shravan Hannon DO [facility]01/08/2019 - NAV Mayo74.8 Abnormal levels of other serum lybyyyoP78.0 Nonspecific elevation of levels of transaminase and lactic acid dehydrogenase [LDH]R94.5 Abnormal results of liver function suueiviS26.03 Drug induced constipation
--- OUTSIDE RECORDS SUMMARY | 2019-02-21 20:34 | XMS REPORT | Continuity of Care Document ---
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 Sanford Jamison DO Primary Care Physician Unavailable Payers Date Identification Numbers Payment Provider Subscriber Effective: Policy Number: [id number] [employer] Taz Reynolds 2018 Medicaid PayID: [id number] [address] [address] [place] [address] Expires: 2018 Policy Number: [id number] [place] [employer] [place] Taz Reynolds PayID: [id number] [address] [address] [place] [address] Effective: 2018 Policy Number: [id number] Medicaid Taz Reynolds Expires: 2018 Group Name: 1 1 [address] PayID: [id number] [place] [address] Family History Date Family Member(s) Observation Comments Father Diabetes Type II Mother Breast Cancer Mother TIA Siblings 6 diabetes, cardiac-fluid around heart, shingles, Social History Type Date Description Comments Sex Unknown Marital Status Lives With Mother Occupation [employer] D[employer] Hand Dominance Right-handed ETOH Use Denies alcohol use Tobacco Use Start: Unknown End: Patient is a former quit since Aug 2018 Unknown smoker Recreational Drug Use Denies Drug Use Smoking Status Reviewed: 01/23/19 Patient is a former quit since Aug 2018 smoker Exercise Type/Frequency Exercises sporadically sporatic Allergies, Adverse Reactions, Alerts Description No Known Drug Allergies Medications Active Medications SIG Qnty Indications Ordering Date Provider Basagllogan Kwikpen 10 units at 15ml Sree Adams MD 11/28/2018 bedtime,MDD 50 100Unit/ML Solution Pen-Inject Admelog Solostar 6-12 units per 15ml Sree Adams MD 11/27/2018 meal, 1 unit for 100Unit/ML Solution every 10 grams of Pen-Inject carbs, MDD 50 Pen [place] to be used with 200units Sree Adams MD 10/17/2018 32G X 6 humalog, and lantus mm Misc dosing up to 6 times per day. Insulin use 4-6 times daily 200units E11.65 Sree Adams MD 09/06/2018 Syringe/0.5ML/31G X 516" 31G X 516" 0.5 ML Misc Amitiza take one capsule Unknown 24mcg twice a day am and Capsules evening Venlafaxine HCL 1 by mouth every Unknown day 75mg Tablets Lisinopril 1 by mouth every Unknown 2.5mg day Tablets Buspirone HCL one by mouth twice Unknown 10mg a day. Tablets Ondansetron dissolve one tablet Unknown 4mg orally every 8 Tablets Dispers hours as needed for nausea. Tramadol HCL 1-2 tablets by Unknown 50mg mouth every 6 hours Tablets as needed pain Morphine Sulfate ER 1 capsule three x a Unknown Beads day 60mg Caps ER 24HR Gabapentin 1 by mouth three Unknown 300mg times a day Capsules Miralax take 1 packet daily Unknown 3350NF as needed for Packet constipation Oxycodone HCL 1 tab every 4 hours Unknown 10mg as needed Tablets Insulin 1 syringe once Unknown Syringe/0.3ML/30G X daily; substitution 12/27" okay 30G X 16" 0.3 ML Misc Chantix 1 mg twice a day Unknown 1mg Tablets History Medications Humalog Kwikpen 6-12 units 15ml Sree Adams 10/17/2018 - Subcutaneously based 11/26/2018 100Unit/ML Solution on carbohydrates 1 Pen-Inject unit per 5 grams carbs. Fiasp Flextouch 6-12 units with meals 15ml E11.65 Sree Adams 09/19/2018 - based on carbohydrate 09/24/2018 100Unit/ML Solution intake, dispense 5 Pen-Inject pens, 15ml Basaglar Kwikpen 15 units daily 15ml [place] Angie, 09/06/2018 - 09/06/2018 100Unit/ML Solution Pen-Inject Lantus Solostar 18-36 units daily sc 15ml E11.65 [place] Angie, 09/06/2018 - at hour of sleep, 11/27/2018 100Unit/ML Solution dispense 15ml/month Pen-Inject Fiasp Flextouch 6-12 units with meals 15ml E11.65 [place] Angie, 09/06/2018 - based on carbohydrate 09/06/2018 100Unit/ML Solution intake, dispense 5 Pen-Inject pens, 15ml Humalog Kwikpen 6-12 units with meals 15ml E11.65 [place] Angie, 09/06/2018 - based on 09/19/2018 100Unit/ML Solution carbohydrate, Pen-Inject dispense, 5 pens, 15ml Magnesium Oxide 1 by mouth every day Unknown - 250mg 12/03/2018 Tablets M2 Zinc-50 1 by mouth every day Unknown - 50mg Tablets 12/03/2018 Alfuzosin HCL ER 1 by mouth every day Unknown - 10mg 11/27/2018 Tablets ER 24HR Fentanyl 1 every 3 days Unknown - 75mcg/HR 11/27/2018 Patches 72HR Vitamin D-3 1 by mouth every day Unknown - 1000Unit 09/24/2018 Capsules Lyrica 1 by mouth three Unknown - 50mg Capsules times daily 11/27/2018 Metformin HCL ER 1 by mouth twice a Unknown - (Mod) day 11/26/2018 1000mg Tablets ER 24HR Lisinopril 1 by mouth every day Unknown - 20mg Tablets 11/28/2018 Miralax 17 grams by mouth Unknown - Powder every day as needed 09/02/2018 Oxycodone-Acetaminoph 1-2 by mouth every Unknown - en 4-6 hours as needed 09/24/2018 5-325mg Tablets for post-op pain. max 10 per day Ergocalciferol one capsule every 14caps Sree Adams, - audrey WAGONER 12/03/2018 [id number] Capsules Docusate Sodium 1 tab every 12 hours Unknown - 100mg as needed for 11/27/2018 Capsules constipation Vital Signs Date Vital Result Comment 01/23/2019 2:37pm Height 67 inches 5'7" Weight 154.00 lb w/ shoes Heart Rate 69 /min BP Systolic Sitting 85 mmHg BP Diastolic Sitting 56 mmHg BMI (Body Mass Index) 24.1 kg/m2 01/03/2019 11:07am Height 67 inches 5'7" Weight 157.25 lb Heart Rate 69 /min BP Systolic Sitting 124 mmHg BP Diastolic Sitting 88 mmHg O2 % BldC Oximetry 96 % BMI (Body Mass Index) 24.6 kg/m2 12/04/2018 9:00am Height 67 inches 5'7" Weight [...] Test Result H/L Range Note Alkaline Phos [facility] Alkaline 378 U/L Abnormal 40 - 129 Isoenzymes [address] [place] [address] [phone] Alp Liver 1% 49.4 % 27.8-76.3 Alp Liver 1 186.7 IU/L Abnormal 16.2-70.2 Alp Liver 2% 27.5 % Abnormal 0.0-8.0 Alp Liver 2 104.0 IU/L Abnormal 0.0-5.8 Alp Bone % 23.1 % 19.1-67.7 Alp Bone 87.3 IU/L Abnormal 12.1-42.7 Alp Intestine % 0.0 % 0.0-20.6 Alp Intestine 0.0 IU/L 0.0-11.0 Alp Placental NotPresent 1 Fecal Fat 10/20/2018 [facility] Fecal Fat, Total Weight 670 g 2 [address] [place] [address] [phone] Fecal Fat, Collection Duration 48 h Stool Total Fat/24Hr 88 g/24h Abnormal 2 - 7 3 Laboratory test 10/05/2018 [facility] TSH (Thyroid 1.14 mcIU/mL N 0.34-5.[address] Stim Horm) [place] [address] [phone] Vitamin D Total 25(Oh) 24.9 ng/mL N 20-50 Comp Metabolic Panel 10/05/2018 [facility] Sodium 138 mmol/L N 135-145 [address] [place] [address] [phone] Potassium 5.0 mmol/L N 3.5-5.0 Chloride 99 [...] >60 Egfr 189.2 >60 4 Pthi 10/05/2018 [facility] Calcium (PTH Intact) 8.7 mg/dL N 8.6-10.3 [address] [place] [address] [phone] PTH Intact 3.3 pmol/L N 1.3-9.3 Laboratory test 10/05/2018 [facility] Vitamin A 48.7 g/dL 32.5-78.[address] (Retinol) [place] [address] [phone] Vitamin E 13.4 mg/L 5.5 - 17.0 6 Inr/Protime 10/05/2018 [facility] Inr 0.89 N 0.77-1.[address] [place] [address] [phone] Laboratory test 10/05/2018 [facility] Vitamin B12 744 pg/mL N 180-[address] [place] [address] [phone] Iron (Fe) 32 g/dL Low 50-212 CBC Auto Diff 10/05/2018 [facility] White Blood 5.2 10^3/uL N 3.5-10.[address] [place] [address] [phone] Red Blood Count 4.41 10^6/uL N 4.00-5.40 [...] Blood Cells % 0 Alkaline Phos 10/05/2018 [facility] Alkaline 363 U/L Abnormal 40 - Isoenzymes [address] Phosphatase [address] [place] [address] [phone] Alp Liver 1% 47.0 % 27.8-76.3 Alp Liver 1 170.6 IU/L Abnormal 16.2-70.2 Alp Liver 2% 28.5 % Abnormal 0.0-8.0 Alp Liver 2 103.5 IU/L Abnormal 0.0-5.8 Alp Bone % 24.5 % 19.1-67.7 Alp Bone 88.9 IU/L Abnormal 12.1-42.7 Alp Intestine % 0.0 % 0.0-20.6 Alp Intestine 0.0 IU/L 0.0-11.0 Alp Placental NotPresent 8 Laboratory test 09/06/2018 [employer] [facility] In House Glucose Random 328 finding Laboratory test 08/31/2018 [facility] Surgical Interface SEE RESULT [address] [place] [address] [phone] 1 REFERENCE VALUE Not present Test Performed by: [facility] [place] [address] [place] [address] 2 COLLECTION WAS 48 HRS NOT 72 ONLY ORDER 1 PER VALERIANO CARD 2 CONTAINERS 3 ADDITIONAL INFORMATION This test was developed and its performance characteristics determined by [facility] in a manner consistent with CLIA requirements. This test has not been cleared or approved by the U.S. Food and Drug Administration. Test Performed by: [facility] [address] [place] [address] 4 Because ethnic data is not always [...] its performance characteristics determined by [facility] in a manner consistent with CLIA requirements. This test has not been cleared or approved by the U.S. Food and Drug Administration. Test Performed by: [facility] - [address] [address] 6 ADDITIONAL INFORMATION This test was developed and its performance characteristics determined by [facility] in a manner consistent with CLIA requirements. This test has not been cleared or approved by the U.S. Food and Drug Administration. Test Performed by: [facility] - [address] [address] 7 Normal Range 180 to 914 Indeterminate Range 145 to 180 Deficient Range <145 8 REFERENCE VALUE Not present Test Performed by: [facility] - [address] [address] 9 SEE RESULT BELOW Name: TAZ REYNOLDS : [address]: Teresa Vides MD Acct: [id number] Unit: [id number] AGE: 48 Location: [facility] 420-01 Re08/30/18 Dis: 09/01/18 SEX: M Status: DIS Fatimah SPEC: [id number] [place]: 08/31/18-[address] [facility] [address]: Shravan Hannon DO REQ: [id number] RECD: 08/31/18 STATUS: SHAN MARQUIS DR: Teresa [...] 1245 END OF REPORT DEPARTMENT OF PATHOLOGY, [address] [place] [address] Wild Alves M.D. Director [facility] # [id number] Procedures Date Code Description Status 12/17/2018 07732 ECHO Transthorasic Realtime 2D W Doppler & Color Flow Completed Hosp 10/26/2018 061240078 Diabetic Retinal Eye Exam Completed 09/16/2018 66131 Nerve Conduction 07-08 Studies Completed 09/16/2018 12068 Needle Electromyography Each Extremity W/Related Completed Paraspinal Areas 04/24/2013 54881 EKG, Interpretation Only Completed Encounters Type Date Location Provider Dx Diagnosis Office Visit 01/03/2019 [facility] Glenn Roca E11.42 Type 2 diabetes 10:30a Clinic Sara Webb mellitus with diabetic polyneuropathy G89.29 Other chronic pain Office Visit 12/19/2018 [facility] Nora E11.9 Type 2 diabetes 9:08a josh Blanchard NP mellitus without Hospitalists complications R80.9 Proteinuria, unspecified R60.0 Localized edema Office Visit 12/15/2018 [facility] Kayla E11.9 Type 2 diabetes 9:07a josh Blanchard MD mellitus without Hospitalists complications G89.4 Chronic pain syndrome K59.00 Constipation, unspecified R60.0 Localized edema Z98.84 Bariatric surgery status Office 12/06/2018 [facility] [place] R94.31 Abnormal Visit 9:21a josh Blanchard M.D. electrocardiogram Hospitalists [ECG] [EKG] Office 12/04/2018 [facility] Sree Adams, E10.69 Type 1 diabetes Visit 9:20a and Endocrinology MD mellitus with other of Compress Engineer specified complication K86.89 Other specified diseases of pancreas G89.4 Chronic pain syndrome R45.851 Suicidal ideations Z98.84 Bariatric surgery status Office 11/28/2018 [facility] John Ivy, E11.42 Type 2 diabetes Visit 9:30a Clinic [employer] mellitus with diabetic polyneuropathy Office 10/02/2018 [facility] Glenn Roca Z98.84 Bariatric surgery Visit 11:15a Clinic joana Webb M.D. M79.2 Neuralgia and neuritis, unspecified M62.9 Disorder of muscle, unspecified E11.9 Type 2 diabetes mellitus without complications Office Visit 09/23/2018 [facility] [place] Charles, R10.9 Unspecified 10:11a Assocjosh M.D. abdominal pain Hospitalists E11.40 Type 2 diabetes mellitus with diabetic neuropathy, unsp R33.9 Retention of urine, unspecified E60 Dietary zinc deficiency E55.9 Vitamin D deficiency, unspecified R74.8 Abnormal levels of other serum enzymes [facility] 09[facility]22/[facility] [place] Charles G54.1 Lumbosacral 10:11a Assjosh ribeiro M.D. plexus disorders Hospitalists E11.40 Type 2 diabetes mellitus with diabetic neuropathy, unsp E60 Dietary zinc deficiency R33.9 Retention of urine, unspecified Office Visit 09/21/2018 [facility] Stefany G61.9 Inflammatory 7:00a Wilma Banks MD polyneuropathy, unspecified K59.00 Constipation, unspecified Office Visit 09/21/2018 [facility] [place] Charles, G54.1 Lumbosacral 10:11a josh Blanchard M.D. plexus disorders Hospitalists E11.40 Type 2 diabetes mellitus with diabetic neuropathy, unsp E60 Dietary zinc deficiency R33.9 Retention of urine, unspecified Office Visit 09/20/2018 [facility] Stefany G61.9 Inflammatory 7:00a Wilma Banks MD polyneuropathy, unspecified K59.00 Constipation, unspecified Office Visit 09/20/2018 [facility] [place] Charles G54.1 Lumbosacral 10:10a Assocjosh M.D. plexus disorders Hospitalists E11.40 Type 2 diabetes mellitus with diabetic neuropathy, unsp E60 Dietary zinc deficiency Z98.84 Bariatric surgery status Office Visit 09/19/2018 [facility] Stefany G61.9 Inflammatory 7:00a Wilma Banks MD polyneuropathy, unspecified E60 Dietary zinc deficiency Office Visit 09/19/2018 [facility] [place] Araceli, G54.1 Lumbosacral 10:10a josh Blanchard M.D. plexus disorders Hospitalists E11.40 Type 2 diabetes mellitus with diabetic neuropathy, unsp E60 Dietary zinc deficiency R74.8 Abnormal levels of other serum enzymes Office Visit 09/18/2018 [facility] Shashank Leigh G54.1 Lumbosacral 10:10a josh Blanchard M.D.,FACP plexus disorders Hospitalists E11.40 Type 2 diabetes mellitus with diabetic neuropathy, unsp R94.5 Abnormal results of liver function studies Z98.84 Bariatric surgery status Z79.4 halfway (current) use of insulin Office Visit 09/18/2018 [facility] Stefany G61.9 Inflammatory 7:00a Wilma Banks MD polyneuropathy, unspecified Office Visit 09/17/2018 [facility] Stefany G61.9 Inflammatory 7:00a Wilma Banks MD polyneuropathy, unspecified [facility] Lumbosacral plexus 10:09a josh Blanchard disorders M.D.,FACP E11.9 Type 2 diabetes mellitus without complications R94.5 Abnormal results of liver function studies Z98.84 Bariatric surgery status Office Visit 09/16/2018 [facility] K86.89 Other specified 10:09a josh Blanchard MD diseases Hospitalists pancreas E72.12 Methylenetetrahydrofolate reductase deficiency E11.9 Type 2 diabetes mellitus without complications I10 Essential (primary) hypertension Office 09/16/2018 [facility] Glenn Roca G61.9 Inflammatory Visit 7:00a nancy Scott M.D. 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 spinal cord, unspecified [facility] Unspecified 10:08a Assquintin,josh Hospitalists Sara Kelly abdominal pain E11.9 Type 2 diabetes mellitus without complications I10 Essential (primary) hypertension Office Visit 09/13/2018 10:08a [facility] Teresa R10.9 Unspecified Assocjosh M.D. abdominal pain Hospitalists E11.9 Type 2 diabetes mellitus without complications Office Visit 09/13/2018 7:00a [facility] Michael Maldonado86.89 Other specified [facility] Sara Alexis diseases of pancreas Office Visit 09/06/2018 1:40p [facility] and Sree Adams, Z79.4 halfway Endocrinology of [facility] (current) use of insulin E11.65 Type 2 diabetes mellitus with hyperglycemia E83.51 Hypocalcemia Z98.84 Bariatric surgery status Office Visit 09/01/2018 [facility] and Sree Adams, E11.65 Type 2 diabetes 10:20a Endocrinology of MD mellitus with [facility] hyperglycemia Office Visit 09/01/2018 [facility] Marley M54.9 Dorsalgia, 10:21a Assoc,josh Allan, [employer] REPA[employer] unspecified Hospitalists R10.9 Unspecified abdominal pain E11.9 Type 2 diabetes mellitus without complications I10 Essential (primary) hypertension R74.0 Nonspec elev of levels of transamns & lactic acid dehydrgnse Office Visit 08/30/2018 10:21a [facility] Teresa R10.9 Unspecified Assjosh ribeiro M.D. abdominal pain Hospitalists E11.9 Type 2 diabetes mellitus without complications I10 Essential (primary) hypertension Office Visit 06/05/2015 [facility] John Chand, E11.649 Type 2 diabetes 10:38a Assjosh ribeiro M.D. mellitus with Hospitalists hypoglycemia without coma F32.9 Major depressive disorder, single episode, unspecified R56.9 Unspecified convulsions Office Visit 05/10/2013 [facility] Marcos 272.2 Hyperlipidemia Mixed 11:15a Assoc,josh Florence, N.P. Hospitalists 250.02 Diabetes Mellitus W/O Compl Type II Or Unspec Type Uncontrol 401.9 Hypertension Unspec V45.86 Bariatric Surgery Status Office Visit 05/09/2013 11:14a [facility] Marcos 250.02 Diabetes Assoc,pc Naman, N.P. Mellitus W/O Hospitalists Compl Type II Or Unspec Type Uncontrol 272.2 Hyperlipidemia Mixed 401.9 Hypertension Unspec V45.86 Bariatric Surgery Status Office Visit 05/08/2013 11:14a [facility] Marcos 250.02 Diabetes Assoc,pc Steven Florence Mellitus W/O Hospitalists Compl Type II Or Unspec Type Uncontrol 272.2 Hyperlipidemia Mixed V45.86 Bariatric Surgery Status Office Visit 05/07/2013 11:13a [facility] Guero 250.02 Diabetes Assoc,josh Laws N.P. Mellitus W/O Hospitalists Compl Type II Or Unspec Type Uncontrol 401.9 Hypertension Unspec 272.2 Hyperlipidemia Mixed V45.86 Bariatric Surgery Status Plan of Treatment Future Appointment(s):04/17/2019 11:00 am - Sree Adams MD at [facility]01/23/2019 - Sree Adams MDE08.9 Diabetes mellitus due to underlying condition without compliInstructions:1. We will submit a request for Medtr[employer] insulin pump + sensor. 2. Continue current insulin regimen.K75.89 Other specified inflammatory liver xzdgcqioJ84.4 Chronic pain syndrome
--- OUTSIDE RECORDS SUMMARY | 2019-02-21 20:34 | XMS REPORT | Continuity of Care Document ---
:1970 External Reference #:[id number] Author Name Sanford Jamison D.O. Address [address] [place] [id number] Care Team Providers Name Role Phone HCP given Primary Care Physician Unavailable Payers Date Identification Numbers Payment Provider Subscriber Policy Number: [id number] Suarez/[employer] ([place] [facility]) Taz Reynolds PayID: [id number] [address] [address] [place] [address] Problems Active Problems Provider Date Type 2 [...] a former smoker Unknown Smoking Status Reviewed: 02/07/19 Patient is a former smoker Allergies, Adverse Reactions, Alerts Description No Known Drug Allergies Medications Active Medications SIG Qnty Indications Ordering Date Provider Metanx 1 by mouth twice a 180caps Yaquelin Sanford, 02/05/2019 day D.O. 3-90.314-2-35mg Capsules Colace 1 by mouth twice a Unknown 01/31/2019 100mg day to keep stools Capsules soft Dulcolax take 2 tablets by Unknown 01/31/2019 5mg mouth daily as Tablets DR needed for constipation Lantus inject 5 units daily Unknown 01/02/2019 100Unit/ML Solution Buspirone HCL Take 1 Tablet By 180tabs F41.9 Sanford Jamison, 12/29/2018 10mg Mouth Two Times D.O. Tablets Daily Ondansetron HCL Take 1 Tablet By 180tabs Z98.84 Sanford Jamison, 12/26/2018 4mg Mouth Every 6 Hours D.O. Tablets as Needed For Nausea R11.0 Amitiza 1 capsule by mouth Unknown 12/24/2018 24mcg Capsules daily Venlafaxine HCL Take 1 Tablet By Mouth 90tabs F41.9 Sanford Jamison, 2018 75mg Every Day D.O. Tablets Lisinopril take 1 tablet by mouth 90tabs E11.65 Sanford Jamison, 12/24/2018 2.5mg Tablets every day D.O. Vitamin C take 1 tablet by mouth Unknown 12/24/2018 500mg Tablets daily Gabapentin Take 1 Capsule By Unknown 12/24/2018 300mg Capsules Mouth Three Times Daily Polyethylene Glycol 1-2 capful in 8 oz of K59.00 Unknown 12/13/2018 3350 water by mouth bid for 3350NF Packet constipation Multivitamin one po daily Sanford Jamison, 12/03/2018 D.O. Tramadol HCL Take 1 Tablet By Mouth Unknown 11/02/2018 50mg Tablets Three Times Daily as Needed For Breakthrough Pain Between Oxycodone Doses -- Maximum Daily Dose Of 3 Per Day Humalog Kwikpen 1unit per 10 carbs 90ml Unknown 09/06/2018 100Unit/ML Solution Pen-Inject Oxycodone HCL 1 by mouth every 4 [place], 10mg hours as needed for MD Spencer Tablets pain. Morphine Sulfate ER Take 1 Tablet By Mouth Unknown 60mg Three Times Daily as Tablets ER Needed - Maximum Daily Dose Of 3 Tablets Per Day History Medications Artificial Tears 1 drop right eye 45ml GiovanyjackSanford gresham, 12/04/2018 - twice daily on a D.O. 01/31/2019 1.4% Solution regular basis and might use 1 drop in either eye twice a day as needed S-Hjdkmwwwybkz-Czq 1 by mouth twice a 180caps Yaquelin Sanford, 11/16/2018 - ae-B12-B6 day D.O. 12/03/2018 3-90.314-2-35mg Capsules Metanx 1 by mouth twice a 180caps Jovanna Jamisonon, 10/19/2018 - day D.O. 11/16/2018 3-90.314-2-35mg Capsules N-Vqbvpwgptlmg-Upx 1 by mouth twice a 180caps Yaquelin Sanford, 10/05/2018 - ae-B12-B6 day D.O. 10/19/2018 3-90.314-2-35mg Capsules Zinc 1 by mouth every day Unknown 10/04/2018 - 50mg Tablets 01/02/2019 Magnesium daily Yaquelin Sanford, 10/04/2018 - D.O. 12/03/2018 Lisinopril 1 by mouth twice 180tabs I10 Yaquelin Sanford, 10/04/2018 - 10mg daily D.O. 10/30/2018 Tablets Alfuzosin HCL ER 1 tablet daily, for Unknown 10/04/2018 - enlarged prostate 10/29/2018 10mg Tablets ER 24HR Metanx 1 by mouth twice a 180caps Sanford Jamison, 09/24/2018 - day D.O. 10/05/2018 3-90.314-2-35mg Capsules Calcium Chew 3 po daily Unknown 09/23/2018 - 12/03/2018 Oxycodone HCL take 2 capsule by 168caps Sanford Jamison, 09/23/2018 - 5mg mouth every 4 hours D.O. 10/05/2018 Capsules as needed for pain Fentanyl apply 1 patch to 10units Sanford Jamison, 09/23/2018 - 75mcg/HR skin every 3 days D.O. 12/03/2018 Patches 72HR remove previous patch. post op continuation of pain Metanx 1 by mouth twice a 180caps Sanford Jamison, 09/13/2018 - day D.O. 09/13/2018 3-90.314-2-35mg Capsules Lisinopril take one tablet by Unknown 09/06/2018 - 20mg mouth every day for 10/05/2018 Tablets high blood pressure Metformin HCL take one tablet by 180tabs Sanford Jamison, 09/06/2018 - mouth twice a day D.O. 12/03/2018 1000mg Tablets Vitamin D3 Ultra 1 tab by mouth 1 Unknown 09/06/2018 - Potency time a week for 12/03/2018 [id number] vitamin d deficiency Tablets Percocet 1 tab every 4 hours 180tabs G89.4 Sanford Jamison, 09/06/2018 - 5-325mg as needed D.O. 09/23/2018 Tablets Lyrica 1 three times a day Unknown - 50mg 12/03/2018 Capsules Chantix 1 pill twice daily Unknown - 1mg to help quit smoking 12/04/2018 Tablets Medications Administered in Office Medication SIG Qnty Indications Ordering Provider Date B12 Injection Sanford Jamison D.OLaurie 09/07/2018 Injection SC/Im Injections Sanford Jamison D.Osvaldo 09/07/2018 Injection Immunizations CPT Code Status Date Vaccine Lot # [id number] Given 07/01/2016 Td(Adult),Unspecified Vital Signs Date Vital Result Comment 02/07/2019 3:34pm BP Systolic 124 mmHg BP Diastolic 70 mmHg Weight 151.00 lb with sneakers 02/01/2019 3:27pm BP Systolic 130 mmHg BP Diastolic 86 mmHg Body Temperature 98.2 F Weight 151.00 lb 01/03/2019 2:38pm BP Systolic 110 mmHg BP Diastolic 64 mmHg Weight 154.00 lb 12/04/2018 4:41pm BP Systolic 148 mmHg BP [...] Date Facility Test Result H/L Range Note CBC Auto Diff 02/01/2019 [facility] White Blood 7.3 10^3/uL N 3.5- 10.8 [phone] Count Red Blood Count 4.52 10^6/uL N 4.18-5.48 Hemoglobin 12.3 g/dL Low 14.0-18.0 Hematocrit 37 % Low 42-52 Mean Corpuscular Volume 81 fL N 80-94 Mean Corpuscular Hemoglobin 27 pg N 27-31 Mean Corpuscular HGB Conc 34 g/dL N 31-36 Red Cell Distribution Width 18 % High 10-15 Platelet Count 284 10^3/uL N 150-450 Mean Platelet Volume 8.2 fL N 7.4-10.4 Abs Neutrophils 5.1 10^3/uL N 1.5-7.7 Abs Lymphocytes 1.5 10^3/uL N 1.0-4.8 Abs Monocytes 0.6 10^3/uL N 0-0.8 Abs Eosinophils 0.1 10^3/uL N 0-0.6 Abs Basophils 0.0 10^3/uL N 0-0.2 Abs Nucleated RBC 0.0 10^3/uL Granulocyte % 69.3 % Lymphocyte % 20.5 % Monocyte % 8.4 % Eosinophil % 1.5 % Basophil % 0.3 % Nucleated Red Blood Cells % 0.0 Comp Metabolic Panel 02/01/2019 [facility] Sodium 139 mmol/L N 135- 145 [phone] Potassium 4.8 mmol/L N 3.5-5.0 Chloride 102 mmol/L N 101-111 Co2 Carbon Dioxide 34 mmol/L High 22-32 Anion Gap 3 mmol/L N 2-11 Glucose 154 mg/dL High 70-100 Blood Urea Nitrogen 31 mg/dL High 6-24 Creatinine 0.54 mg/dL Low 0.67-1.17 BUN/Creatinine Ratio 57.4 High 8-20 Calcium 8.4 mg/dL Low 8.6-10.3 Total Protein 5.4 g/dL Low 6.4-8.9 Albumin 3.0 g/dL Low 3.2-5.2 Globulin 2.4 g/dL N 2-4 Albumin/Globulin Ratio 1.3 N 1-3 Total Bilirubin 0.30 mg/dL N 0.2-1.0 Alkaline Phosphatase 178 U/L High 34-104 Alt 134 U/L High 7-52 Ast 183 U/L High 13-39 Egfr Non- 163.1 >60 Egfr 197.3 >60 1 Laboratory test finding 02/01/2019 [facility] Iron (Fe) 113 g/dL N 50-212 [phone] TSH (Thyroid Stim Horm) 1.23 mcIU/mL N 0.34-5.60 Vitamin B12 711 pg/mL N 180-914 2 Phosphorus 3.1 mg/dL N 2.5-5.0 Urinalysis Profile 02/01/2019 [facility] Urine Color Alva [phone] Urine Appearance Cloudy Urine Specific Girard 1.034 High 1.010-1.030 Urine pH 5.0 N 5-9 Urine Urobilinogen Negative Negative Urine Ketones Trace Abnormal Negative Urine Protein 2+(100 mg/dL) Abnormal Negative Urine Leukocytes Negative Negative Urine Blood Negative Negative * * Abnormal Negative 3 Urine Nitrite Negative Negative Urine Bilirubin Negative Negative Urine Glucose Negative Negative Urine White Blood Cell Trace(0-5/hpf) Absent Urine Red Blood Cell Trace(0-2/hpf) Absent Urine Bacteria Absent Absent Urine Squamous Epithelial Cell Present Abnormal Absent Urine Culture And 02/01/2019 [facility] Urine Culture SEE RESULT 4 Sensitivities [phone] BELOW Laboratory test 02/01/2019 [facility] Erythrocyte Sed 15 mm/Hr High 0 -14 finding [phone] Rate C Reactive Protein < 1.00 mg/L N <8.01 Amylase 38 U/L N 29-103 Lipase 130 U/L High 11.0-82.0 Inr/Protime 01/18/2019 [facility] Inr 0.99 N 0.82-1.09 5 [phone] Laboratory test 01/03/2019 In House Hemoglobin A1c 7.0 finding Comp Metabolic 12/15/2018 [facility] Sodium 138 mmol/L N 135-145 Panel [phone] Potassium 4.0 mmol/L N 3.5-5.0 Chloride 102 mmol/L N 101-111 Co2 Carbon Dioxide 29 mmol/L N 22-32 Anion Gap 7 mmol/L N 2-11 Glucose 208 mg/dL High 70-100 Blood Urea Nitrogen 24 mg/dL N 6-24 Creatinine 0.58 mg/dL Low 0.67-1.17 BUN/Creatinine Ratio 41.4 High 8-20 Calcium 8.7 mg/dL N 8.6-10.3 Total Protein 5.9 g/dL Low 6.4-8.9 Albumin 3.0 g/dL Low 3.2-5.2 Globulin 2.9 g/dL N 2-4 Albumin/Globulin Ratio 1.0 N 1-3 Total Bilirubin 0.40 mg/dL N 0.2-1.0 Alkaline Phosphatase 193 U/L High 34-104 Alt 45 U/L N 7-52 Ast 38 U/L N 13-39 Egfr Non- 150.2 >60 Egfr 181.7 >60 6 CBC Auto Diff 12/15/2018 [facility] White Blood Count 6.2 10^3/uL N 3.5-10.8 [phone] Red Blood Count 4.71 10^6/uL N 4.18-5.48 Hemoglobin 12.1 g/dL Low 14.0-18.0 Hematocrit 37 % Low 42-52 Mean Corpuscular Volume 79 fL Low 80-94 Mean Corpuscular Hemoglobin 26 pg Low 27-31 Mean Corpuscular HGB Conc 33 g/dL N 31-36 Red Cell Distribution Width 15 % N 10.5-15 Platelet Count 324 10^3/uL N 150-450 Mean Platelet Volume 7.3 fL Low 7.4-10.4 Abs Neutrophils 3.7 10^3/uL N 1.5-7.7 Abs Lymphocytes 1.6 10^3/uL N 1.0-4.8 Abs Monocytes 0.6 10^3/uL N 0-0.8 Abs Eosinophils 0.3 10^3/uL N 0-0.6 Abs Basophils 0.0 10^3/uL N 0-0.2 Abs Nucleated RBC 0.0 10^3/uL Granulocyte % 59.2 % Lymphocyte % 26.5 % Monocyte % 9.2 % Eosinophil % 4.3 % Basophil % 0.8 % Nucleated Red Blood Cells % 0.0 Laboratory test 12/15/2018 [facility] Hemoglobin A1c 7.5 % High 4.0- 5.6 7 finding [phone] (Glyco HGB) Venous Blood Gas 12/15/2018 [facility] Venous Blood pH 7.54 High 7.32 -7.43 [phone] Venous Pco2 35 mmHg Low 41-51 Venous Po2 < 38.0 mmHg N 35-45 Venous O2 Saturation 48.6 % Low 70-80 Venous Blood Base Excess 7.2 mmol/L High 0.0-4.0 8 Venous Bicarbonate Hco3 29.2 mmol/L High 24-28 Urine Culture And 12/14/2018 [facility] Urine Culture SEE RESULT 9 Sensitivities [phone] BELOW Urine Drug SCR ED 12/14/2018 [facility] Urine None None [facility] [phone] Amphetamine Detected Detect Screen Urine Barbiturates Screen None Detected None Detect Urine Benzodiazepine Screen None Detected None Detect Urine Cannabinoids Screen Presumptive Posi <SEE NOTE> Abnormal None Detect 10 Urine Cocaine Screen None Detected None Detect Urine Opiates Screen Presumptive Posi <SEE NOTE> Abnormal None Detect 11 Urine Phencyclidine Screen None Detected None Detect 12 Urinalysis Profile 12/14/2018 [facility] Urine Color Yellow [phone] Urine Appearance Cloudy Urine Specific Girard 1.018 N 1.010-1.030 Urine pH 7.0 N 5-9 Urine Urobilinogen Negative Negative Urine Ketones Trace Abnormal Negative Urine Protein 2+(100 mg/dL) Abnormal Negative Urine Leukocytes Negative Negative Urine Blood 1+ Abnormal Negative Urine Nitrite Negative Negative Urine Bilirubin Negative Negative Urine Glucose 2+(150 mg/dL) Abnormal Negative Urine White Blood Cell 1+(6-10/hpf) Abnormal Absent Urine Red Blood Cell 3+(>10/hpf) Abnormal Absent Urine Bacteria Absent Absent Urine Hyaline Casts Present Abnormal Absent Urine Calcium Oxalate Cryst Present Abnormal Absent Laboratory test finding 12/14/2018 [facility] Alcohol < 10 mg/dL N < 10 [phone] Salicylate < 2.50 mg/dL <30 TSH (Thyroid Stim Horm) 0.66 mcIU/mL N 0.34-5.60 Acetaminophen < 15 g/mL 13 Comp Metabolic Panel 12/14/2018 [facility] Sodium 139 mmol/L N 135- 145 [phone] Potassium 4.3 mmol/L N 3.5-5.0 Chloride 105 mmol/L N 101-111 Co2 Carbon Dioxide 31 mmol/L N 22-32 Anion Gap 3 mmol/L N 2-11 Glucose 293 mg/dL High 70-100 Blood Urea Nitrogen 27 mg/dL High 6-24 Creatinine 0.66 mg/dL Low 0.67-1.17 BUN/Creatinine Ratio 40.9 High 8-20 Calcium 8.2 mg/dL Low 8.6-10.3 Total Protein 5.4 g/dL Low 6.4-8.9 Albumin 2.9 g/dL Low 3.2-5.2 Globulin 2.5 g/dL N 2-4 Albumin/Globulin Ratio 1.2 N 1-3 Total Bilirubin 0.30 mg/dL N 0.2-1.0 Alkaline Phosphatase 181 U/L High 34-104 Alt 46 U/L N 7-52 Ast 36 U/L N 13-39 Egfr Non- 129.4 >60 Egfr 156.5 >60 14 CBC Auto Diff 12/14/2018 [facility] White Blood Count 6.9 10^3/uL N 3.5-10.8 [phone] Red Blood Count 4.22 10^6/uL N 4.18-5.48 Hemoglobin 10.9 g/dL Low 14.0-18.0 Hematocrit 33 % Low 42-52 Mean Corpuscular Volume 79 fL Low 80-94 Mean Corpuscular Hemoglobin 26 pg Low 27-31 Mean Corpuscular HGB Conc 33 g/dL N 31-36 Red Cell Distribution Width 14 % N 10.5-15 Platelet Count 307 10^3/uL N 150-450 Mean Platelet Volume 7.3 fL Low 7.4-10.4 Abs Neutrophils 5.1 10^3/uL N 1.5-7.7 Abs Lymphocytes 1.0 10^3/uL N 1.0-4.8 Abs Monocytes 0.5 10^3/uL N 0-0.8 Abs Eosinophils 0.2 10^3/uL N 0-0.6 Abs Basophils 0.0 10^3/uL N 0-0.2 Abs Nucleated RBC 0.0 10^3/uL Granulocyte % 74.0 % Lymphocyte % 14.9 % Monocyte % 7.4 % Eosinophil % 3.2 % Basophil % 0.5 % Nucleated Red Blood Cells % 0.0 Laboratory test 12/14/2018 [facility] Point of Care 266 mg/dL High 70 -100 15 finding [phone] Glucose Urine Culture And 12/04/2018 [facility] Urine Culture SEE RESULT 16 Sensitivities [phone] BELOW Urine Drug SCR ED 12/04/2018 [facility] Urine None None [facility] [phone] Amphetamine Detected Detect Screen Urine Barbiturates Screen None Detected None Detect Urine Benzodiazepine Screen None Detected None Detect Urine Cannabinoids Screen Presumptive Posi <SEE NOTE> Abnormal None Detect 17 Urine Cocaine Screen None Detected None Detect Urine Opiates Screen Presumptive Posi <SEE NOTE> Abnormal None Detect 18 Urine Phencyclidine Screen None Detected None Detect 19 Urinalysis Profile 12/04/2018 [facility] Urine Color Alva [phone] Urine Appearance Cloudy Urine Specific Girard 1.035 High 1.010-1.030 Urine pH 5.0 N 5-9 Urine Urobilinogen Negative Negative Urine Ketones 2+ Abnormal Negative Urine Protein 3+(>=500 mg/dL) Abnormal Negative Urine Leukocytes Trace Abnormal Negative Urine Blood Negative Negative * * Abnormal Negative 20 Urine Nitrite Negative Negative Urine Bilirubin Negative Negative Urine Glucose 1+(50 mg/dL) Abnormal Negative Urine White Blood Cell 2+(11-20/hpf) Abnormal Absent Urine Red Blood Cell 2+(6-10/hpf) Abnormal Absent Urine Bacteria Absent Absent Urine Squamous Epithelial Cell Present Abnormal Absent Laboratory test finding 12/04/2018 [facility] Acetaminophen < 15 g/ mL 21 [phone] Alcohol < 10 mg/dL N <10 Salicylate < 2.50 mg/dL <30 TSH (Thyroid Stim Horm) 1.98 mcIU/mL N 0.34-5.60 Comp Metabolic Panel 12/04/2018 [facility] Sodium 133 mmol/L Low 135- 145 [phone] Potassium 4.0 mmol/L N 3.5-5.0 Chloride 95 mmol/L Low 101-111 Co2 Carbon Dioxide 29 mmol/L N 22-32 Anion Gap 9 mmol/L N 2-11 Glucose 161 mg/dL High 70-100 Blood Urea Nitrogen 28 mg/dL High 6-24 Creatinine 0.62 mg/dL Low 0.67-1.17 BUN/Creatinine Ratio 45.2 High 8-20 Calcium 8.9 mg/dL N 8.6-10.3 Total Protein 6.9 g/dL N 6.4-8.9 Albumin 3.4 g/dL N 3.2-5.2 Globulin 3.5 g/dL N 2-4 Albumin/Globulin Ratio 1.0 N 1-3 Total Bilirubin 0.30 mg/dL N 0.2-1.0 Alkaline Phosphatase 206 U/L High 34-104 Alt 31 U/L N 7-52 Ast 22 U/L N 13-39 Egfr Non- 139.1 >60 Egfr 168.3 >60 22 CBC Auto Diff 12/04/2018 [facility] White Blood Count 8.1 10^3/uL N 3.5-10.8 [phone] Red Blood Count 4.94 10^6/uL N 4.18-5.48 Hemoglobin 12.8 g/dL Low 14.0-18.0 Hematocrit 39 % N 36-46 Mean Corpuscular Volume 79 fL Low 80-94 Mean Corpuscular Hemoglobin 26 pg Low 27-31 Mean Corpuscular HGB Conc 33 g/dL N 31-36 Red Cell Distribution Width 15 % N 10.5-15 Platelet Count 530 10^3/uL High 150-450 Mean Platelet Volume 7.0 fL Low 7.4-10.4 Abs Neutrophils 6.0 10^3/uL N 1.5-7.7 Abs Lymphocytes 1.2 10^3/uL N 1.0-4.8 Abs Monocytes 0.7 10^3/uL N 0-0.8 Abs Eosinophils 0.1 10^3/uL N 0-0.6 Abs Basophils 0.1 10^3/uL N 0-0.2 Abs Nucleated RBC 0 10^3/uL Granulocyte % 74.3 % Lymphocyte % 15.2 % Monocyte % 8.5 % Eosinophil % 1.2 % Basophil % 0.8 % Nucleated Red Blood Cells % 0 Laboratory 12/04/2018 [facility] Point of Care 152 mg/dL High 70-100 23 test finding [phone] Glucose Laboratory 11/30/2018 [facility] Point of Care 135 mg/dL High 70-100 24 test finding [phone] Glucose Laboratory 11/30/2018 [facility] Point of Care 158 mg/dL High 70-100 25 test finding [phone] Glucose Laboratory 11/21/2018 [facility] Point of Care 171 mg/dL High 70-100 26 test finding [phone] Glucose Laboratory 11/21/2018 [facility] Point of Care 252 mg/dL High 70-100 27 test finding [phone] Glucose Laboratory 11/14/2018 [facility] Point of Care 212 mg/dL High 70-100 28 test finding [phone] Glucose Laboratory 10/05/2018 In House Hemoglobin A1c 8.7 test finding Alkaline Phos 10/05/2018 [facility] Alkaline 363 U/L Abnormal 40 - 129 Isoenzymes [phone] Phosphatase Alp Liver 1% 47.0 % 27.8-76.3 Alp Liver 1 170.6 IU/L Abnormal 16.2-70.2 Alp Liver 2% 28.5 % Abnormal 0.0-8.0 Alp Liver 2 103.5 IU/L Abnormal 0.0-5.8 Alp Bone % 24.5 % 19.1-67.7 Alp Bone 88.9 IU/L Abnormal 12.1-42.7 Alp Intestine % 0.0 % 0.0-20.6 Alp Intestine 0.0 IU/L 0.0-11.0 Alp Placental NotPresent 29 Laboratory test 10/05/2018 [facility] Vitamin A 48.7 g/dL 32.5- 78.0 30 finding [phone] (Retinol) Vitamin E 13.4 mg/L 5.5 - 17.0 31 Vitamin E 10/05/2018 [facility] Vitamin E 13.4 mg/L 5.5 - 17.0 32 [phone] Laboratory test 10/05/2018 [facility] Vitamin A 48.7 g/dL 32.5- 78.0 33 finding [phone] (Retinol) Pthi 10/05/2018 [facility] Calcium (PTH 8.7 mg/dL N 8.6-10.3 [phone] Intact) PTH Intact 3.3 pmol/L N 1.3-9.3 Laboratory test finding 10/05/2018 [facility] Iron (Fe) 32 g/dL Low 50-212 [phone] TSH (Thyroid Stim Horm) 1.14 mcIU/mL N 0.34-5.60 Vitamin B12 744 pg/mL N 180-914 34 Vitamin D Total 25(Oh) 24.9 ng/mL N 20-50 Comp Metabolic Panel 10/05/2018 [facility] Sodium 138 mmol/L N 135- 145 [phone] Potassium 5.0 mmol/L N 3.5-5.0 Chloride 99 [...] Egfr Non- 156.4 >60 Egfr 189.2 >60 35 CBC Auto Diff 10/05/2018 [facility] White Blood Count 5.2 10^3/uL N 3.5-10.8 [phone] Red Blood Count 4.41 10^6/uL N 4.00-5.40 [...] Red Blood Cells % 0 Inr/Protime 10/05/2018 [facility] Inr 0.89 N 0.77-1.02 [phone] Fentanyl 09/27/2018 [facility] Norfentanyl Level 546.2 36 Confirmation Urine [phone] ng/mL Fentanyl Level 39.2 ng/mL 37 Fentanyl Interp Positive. 38 Drug Abuse 20 Urine 09/27/2018 [facility] Urine Amphetamine Negative ng /mL 39 [phone] Urine Barbiturates Negative ng/mL 40 Urine Benzodiazepines Negative ng/mL 41 Urine Cocaine Negative ng/mL 42 Urine Phencyclidine Negative ng/mL Cutoff: 25 Urine Tetrahydrocannabinol Negative ng/mL Cutoff: 50 43 Creatinine, Urine 246.4 mg/dL Specific Girard 1.022 pH 5.8 Oxidants Negative 44 Adulterants Comment Normal Codeine, Ur Not Detected ng/mL Cutoff: 25 45 Tcdnyed-4-pklt-glucuronide, Ur Not Detected ng/mL 46 Morphine, Ur Not Detected ng/mL Cutoff: 25 47 Iyhyzihd-2-kfze-glucuronide, U Not Detected ng/mL 48 6-monoacetylmorphine, Ur Not Detected ng/mL Cutoff: 25 49 Hydrocodone, Ur Not Detected ng/mL Cutoff: 25 50 Norhydrocodone, Ur Not Detected ng/mL Cutoff: 25 51 Dihydrocodeine, Ur Not Detected ng/mL Cutoff: 25 52 Hydromorphone, Ur Not Detected ng/mL Cutoff: 25 53 Rqybgvvbrrxca6jpcjawaoniodppk Not Detected ng/mL 54 Oxycodone, Ur Present ng/mL Abnormal Cutoff: 25 55 Noroxycodone, Ur Present ng/mL Abnormal Cutoff: 25 56 Oxymorphone, Ur Not Detected ng/mL Cutoff: 25 57 Pfshosoelra-4-cknw-glucuronide Present ng/mL Abnormal 58 Noroxymorphone, Ur Present ng/mL Abnormal Cutoff: 25 59 Fentanyl, Ur Present ng/mL Abnormal Cutoff: 2 60 Norfentanyl, Ur Present ng/mL Abnormal Cutoff: 2 61 Meperidine, Ur Not Detected ng/mL Cutoff: 25 62 Normeperidine, Ur Not Detected ng/mL Cutoff: 25 63 Naloxone, Ur Not Detected ng/mL Cutoff: 25 64 Mjzsgvbv-7-fnwo-glucuronide, U Not Detected ng/mL 65 Methadone, Ur Not Detected ng/mL Cutoff: 25 66 Eddp, Ur Not Detected ng/mL Cutoff: 25 67 Propoxyphene, Ur Not Detected ng/mL Cutoff: 25 68 Norpropoxyphene, Ur Not Detected ng/mL Cutoff: 25 69 Tramadol, Ur Not Detected ng/mL Cutoff: 25 70 O-desmethyltramadol, Ur Not Detected ng/mL Cutoff: 25 71 Tapentadol, Ur Not Detected ng/mL Cutoff: 25 72 N-desmethyltapentadol, Ur Not Detected ng/mL Cutoff: 50 73 Ouoztrocyk-mrcb-sxlcfzzegzp, U Not Detected ng/mL 74 Buprenorphine, Ur Not Detected ng/mL Cutoff: 5 75 Norbuprenorphine, Ur Not Detected ng/mL Cutoff: 5 76 Norbuprenorphine glucuronide Not Detected ng/mL Cutoff: 20 77 Opioid Interpretation See Comment 78 Urine Culture And 09/13/2018 [facility] Urine Culture SEE RESULT 79 Sensitivities [phone] BELOW Urinalysis Profile 09/13/2018 [facility] Urine Color Yellow [phone] Urine Appearance Clear Urine Specific Girard 1.021 N 1.010-1.030 Urine pH 7.0 N [...] Bacteria Absent Absent Laboratory test finding 09/13/2018 [facility] Lipase 56 U/L N 11.0- 82.0 [phone] C Reactive Protein 5.83 mg/L N <8.01 Troponin-I (TnI) 0.01 ng/mL <0.04 80 Comp Metabolic Panel 09/13/2018 [facility] Sodium 136 mmol/L N 135- 145 [phone] Potassium 4.5 mmol/L N 3.5-5.0 Chloride 102 [...] Egfr Non- 127.1 >60 Egfr 153.8 >60 81 Laboratory test 09/13/2018 [facility] Lactic Acid 1.7 mmol/L N 0.5- 2.0 82 finding [phone] CBC Auto Diff 09/13/2018 [facility] White Blood 5.7 10^3/uL N 3.5- 10.8 [phone] Count Red Blood Count 4.05 10^6/uL N [...] Blood Cells % 0 Laboratory test 09/13/2018 [facility] Point of Care 65 mg/dL Low 70- 100 83 finding [phone] Glucose Laboratory test 09/13/2018 [facility] Point of Care 54 mg/dL Low 70- 100 84 finding [phone] Glucose West Nile Igg And 09/07/2018 [facility] West Nile Virus Negative Negative Igm [phone] IgG West Nile Virus IgM Negative Negative West Nile Serum Interpretation See Comment 85 Laboratory test 09/07/2018 [facility] Syphillis Igg Nonreactive Nonreactive 86 finding [phone] W/Reflex RPR Blood Culture SEE RESULT BELOW 87 HIV 1/2 AB 09/07/2018 [facility] HIV 1 2 Nonreactive Nonreactive 88 Evaluation [phone] Antibody MTHFR 09/07/2018 [facility] MTHFR Heterozygous Abnormal Negative Mutation [phone] C677T Detection Mutation MTHFR Interpretation See Comment 89 MTHFR Reviewed By See Comment 90 MTHFR [id number] Mutation Heterozygous Abnormal Negative Mthac Interpretation See Comment 91 Mthac Reviewed By See Comment 92 Laboratory test 09/07/2018 [facility] Vitamin B12 743 pg/mL N 180- 074 93 finding [phone] Tick-Borne Panel 09/07/2018 [facility] Babesia microti Negative Negative PCR Blood [phone] PCR Babesia ducani Negative Negative Babesia divergens/Mo-1 Negative Negative 94 Anaplasma phagocytophilum Negative Negative Ehrlichia chaffeensis Negative Negative Ehrlichia ewingii/canis Negative Negative B. miyamotoi PCR, B Negative Negative 95 Ehrlichia muris eauclairensis Negative Negative 96 Lyme Western Blot 09/07/2018 [facility] Lyme Disease IgG Negative Negative [phone] Ab WB Lyme Disease IgG Bands Present No bands detecte <SEE NOTE> kDa 97 Lyme Disease IgM Ab WB Negative Negative Lyme Disease IgM Bands Present No bands detecte <SEE NOTE> kDa 98 Lyme Disease Interpretation See Comment 99 Celiac Panel 09/07/2018 [facility] Tissue Transglutaminase IgA <1.2 U/ mL 100 [phone] Ab Immunoglobulin A 190 mg/dL 61 - 356 Celiac Interpretation See Comment 101 Celiac Hla 09/07/2018 [facility] Hla-Dqa1 SEE BELOW 102 [phone] Hla-DQB1 SEE BELOW 103 Celiac Gene Pairs Present? Yes Celiac Gene Interpretation See Comment 104 Laboratory test 09/07/2018 [facility] Folic Acid > 20.00 ng/mL > 3.99 finding [phone] (Folate) Magnesium 1.9 mg/dL N 1.9-2.7 Comp Metabolic Panel 09/07/2018 [facility] Sodium 139 mmol/L N 135- 145 [phone] Potassium 4.3 mmol/L N 3.5-5.0 Chloride 101 [...] Egfr Non- 129.4 >60 Egfr 156.5 >60 105 CBC Auto Diff 09/07/2018 [facility] White Blood Count 6.3 10^3/uL N 3.5-10.8 [phone] Red Blood Count 4.61 10^6/uL N 4.00-5.40 [...] 145 to 180 Deficient Range <145 3 *Ascorbic acid is present which may interfere with detection of blood. 4 SEE RESULT BELOW Name: TAZ REYNOLDS : [address]: Sanford Jamison DO Acct: [id number] Unit: [id number] AGE: 48 Location: [facility] Re02/01/19 SEX: M Status: REG REF SPEC: [id number] JACKSON: 02/01/[address]: Sanford Jamison DO REQ: [id number] RECD: 02/01/19 STATUS: COMP _ SOURCE: URINE SPDESC: ORDERED: Urine Culture Urine Source: Clean Catch Procedure Result Reported Site Urine Culture Final 02/02/19- 1735 ML No Growth (<1,000 CFU/mL) * - [facility] . END OF REPORT DEPARTMENT OF PATHOLOGY, [address] [place] [address] Wild Alves M.D. Director [facility] # [id number] 5 Standard intensity warfarin therapeutic range: 2.0-3.0 High intensity warfarin therapeutic range: 2.5-3.5 6 Because ethnic data is not always readily [...] 15-29 5 Kidney failure <15 (or dialysis) 7 Therapeutic target for the treatment of diabetes mellitus patients is <7% HBA1C, and in selective patients <6.0%. Please refer to [place] [employer] diabetic care guidelines for further information. 8 Reference ranges based on room air. 9 SEE RESULT BELOW Name: TAZ REYNOLDS : [address]: Pura Serra MD Acct: [id number] Unit: [id number] AGE: 48 Location: [facility] Re12/15/18 SEX: M Status: ADM Fatimah SPEC: [id number] JACKSON: 12/14/[address] [facility] [address]: Keith Ames MD REQ: [id number] RECD: 12/14/18 STATUS: IBAN MARQUIS DR: Sanford Jamison DO _ SOURCE: URINE SPDESC: ORDERED: Urine Culture Procedure Result Reported Site Urine Culture Final 12/18/18- 0850 ML Organism 1 ENTEROCOCCUS FAECALIS [place] Count >100,000 (Many) CFU/ML Organism 2 NORMAL ESTRELLA [place] Count 75-100,000 (Many) CFU/ML 1. ENTEROCOCCUS FAECALIS [facility].I.[facility]. RX --------- ------ Ampicillin <=2 S Penicillin 1 S Ciprofloxacin <=0.5 S Gentamicin High Level S Levofloxacin 0.5 S Linezolid 2 S Nitrofurantoin <=16 S * Quinupristin/Dalfopristin 8 R * Streptomycin High Level S Tetracycline >=16 R Tigecycline <=0.12 S Vancomycin 1 S Imipenem-Deduced S * Ampicillin/Sulbactam-Deduced S * These antibiotics are not available in the [facility] Formulary Contact the Microbiology Department for any additional antibiotic reporting. * [facility] - [facility] . END OF REPORT DEPARTMENT OF PATHOLOGY, [address] [place] [address] Wild Alves M.D. Director [facility] # [id number] 10 Presumptive Positive Presumptive positive results are unconfirmed. 11 Presumptive Positive Presumptive positive results are unconfirmed. 12 The urine specimen was tested at the listed cutoffs: Drug class test level (ng/mL) Amphetamines 500 Barbiturates 200 Benzodiazepine metabolites 200 Cocaine metabolites 150 Cannabinoids 50 Opiates 300 Pcp 25 Specimen was received without chain of custody. Results should be used for medical purposes only. 13 Therapeutic concentration: <50 ug/mL Toxic concentration: >120 ug/mL 14 Because ethnic data is not always readily [...] 15-29 5 Kidney failure <15 (or dialysis) 15 Wax Pumper: [id number] 16 SEE RESULT BELOW Name: TAZ REYNOLDS : [address]: Pura Serra MD Acct: [id number] Unit: [id number] AGE: 48 Location: [facility] Re12/05/18 SEX: M Status: ADM IN SPEC: [id number] JACKSON: 12/04/[address]: Farhan Licona MD REQ: [id number] RECD: 12/04/18 STATUS: IBAN MARQUIS DR: [facility] Sanford Jamison DO _ SOURCE: URINE SPDESC: ORDERED: Urine Culture Procedure Result Reported Site Urine Culture Final 12/06/18- 1004 ML No Growth (<1,000 CFU/mL) * [facility] - [facility] Lab . END OF REPORT DEPARTMENT OF PATHOLOGY, [address] [place] [address] Wild Alves M.D. Director [facility] # [id number] 17 Presumptive Positive Presumptive positive results are unconfirmed. 18 Presumptive Positive Presumptive positive results are unconfirmed. 19 The urine specimen was tested at the listed cutoffs: Drug class test level (ng/mL) Amphetamines 500 Barbiturates 200 Benzodiazepine metabolites 200 Cocaine metabolites 150 Cannabinoids 50 Opiates 300 Pcp 25 Specimen was received without chain of custody. Results should be used for medical purposes only. 20 *Ascorbic acid is present which may interfere with detection of blood. 21 Therapeutic concentration: <50 ug/mL Toxic concentration: >120 ug/mL 22 Because ethnic data is not always readily [...] 15-29 5 Kidney failure <15 (or dialysis) 23 Wax Pumper: [id number] 24 W[employer] Pumper: [id number] 25 W[employer] Pumper: [id number] 26 Wax Pumper: [id number] 27 Wax Pumper: [id number] 28 Wax Pumper: [id number] REFERENCE VALUE Not present Test Performed by: [facility] - [address] [address] 30 ADDITIONAL INFORMATION This test was developed and its performance characteristics determined by [facility] in a manner consistent with CLIA requirements. This test has not been cleared or approved by the U.S. Food and Drug Administration. Test Performed by: [facility] - [address] [address] 31 ADDITIONAL INFORMATION This test was developed and its performance characteristics determined by [facility] in a manner consistent with CLIA requirements. This test has not been cleared or approved by the U.S. Food and Drug Administration. Test Performed by: [facility] - [address] [address] 32 ADDITIONAL INFORMATION This test was developed and its performance characteristics determined by [facility] in a manner consistent with CLIA requirements. This test has not been cleared or approved by the U.S. Food and Drug Administration. Test Performed by: [facility] - [address] [address] 33 ADDITIONAL INFORMATION This test was developed and its performance characteristics determined by [facility] in a manner consistent with CLIA requirements. This test has not been cleared or approved by the U.S. Food and Drug Administration. Test Performed by: [facility] - [address] [place] [address] 34 Normal Range 180 to 914 Indeterminate Range 145 to 180 Deficient Range <145 35 Because ethnic data is not always readily [...] 15-29 5 Kidney failure <15 (or dialysis) 36 REFERENCE VALUE Cutoff: 1.0 37 REFERENCE VALUE Cutoff: 0.2 38 ADDITIONAL INFORMATION This test was developed and its performance characteristics determined by [facility] in a manner consistent with CLIA requirements. This test has not been cleared or approved by the U.S. Food and Drug Administration. Test Performed by: [facility] - [address] [place] [address] 39 REFERENCE VALUE Cutoff: 500 40 REFERENCE VALUE Cutoff: 200 41 REFERENCE VALUE Cutoff: 100 42 REFERENCE VALUE Cutoff: 150 43 ADDITIONAL INFORMATION This report is intended for use in clinical monitoring or management of patients. It is not intended for use in employment-related testing. 44 REFERENCE VALUE Cutoff: 200 mg/L 45 Tylenol 3 46 Metabolite of codeine REFERENCE VALUE Cutoff: 100 47 Marielos John, Contin; Also a minor metabolite (10%) of codeine and can be seen in low concentrations (<2,000 ng/mL) with poppy seed ingestion. 48 Metabolite of morphine REFERENCE VALUE Cutoff: 100 49 Metabolite of heroin 50 Lortab, [place], Vicodin; Also a very minor metabolite of codeine and impurity (<1%) of oxycodone. 51 Metabolite of hydrocodone 52 Metabolite of hydrocodone 53 Dilaudid, Exalgo; Also a metabolite of hydrocodone and a minor (<5%) metabolite of morphine. 54 Metabolite of hydromorphone REFERENCE VALUE Cutoff: 100 55 Endocet, Percocet, Oxycontin 56 Metabolite of oxycodone 57 Numorphan, Opana; Also a metabolite of oxycodone. 58 Metabolite of oxymorphone REFERENCE VALUE Cutoff: 100 59 Metabolite of oxymorphone 60 Actiq, Duragesic, Fentora 61 Metabolite of fentanyl 62 Demerol 63 Metabolite of meperidine 64 Narcan 65 Metabolite of naloxone REFERENCE VALUE Cutoff: 100 66 Dolophine 67 Metabolite of methadone 68 Darvon, Darvocet 69 Metabolite of propoxyphene 70 Tradol, Ultram, Ultracet 71 Metabolite of tramadol 72 Nucynta 73 Metabolite of tapentadol 74 Metabolite of tapentadol REFERENCE VALUE Cutoff: 100 75 Buprenex, Suboxone 76 Metabolite of buprenorphine 77 Metabolite of buprenorphine 78 Test detected the presence of oxycodone and several metabolites (noroxycodone, noroxymorphone, and eqgvponxsbq-7-wyaj-glucuronide). Suspect use of oxycodone and/or oxymorphone within the past three days. Test detected the presence of fentanyl and its metabolite (norfentanyl). Suspect use of fentanyl within the past three days. ADDITIONAL INFORMATION This test was developed and its performance characteristics determined by [facility] in a manner consistent with CLIA requirements. This test has not been cleared or approved by the U.S. Food and Drug Administration. Test Performed by: [facility] - [facility] [address] [place] [address] 79 SEE RESULT BELOW Name: TAZ REYNOLDS : [address]: Michael Alexis MD Acct: [id number] Unit: [id number] AGE: 48 Location: [facility] Re09/14/18 SEX: M Status: ADM IN SPEC: [id number] JACKSON: 09/14/[address] [facility] [address]: Farhan Pham MD REQ: [id number] RECD: 09/14/18 STATUS: COMP BENITEZ DR: DO Sanford Mayo DO _ SOURCE: URINE SPDESC: ORDERED: Urine Culture Procedure Result Reported Site Urine Culture Final 09/15/18- 926 ML No Growth (<1,000 CFU/mL) * [facility] - [facility] Lab . END OF REPORT DEPARTMENT OF PATHOLOGY, [address] [place] [address] Wild Alves M.D. Director [facility] # [id number] 80 Troponin-I testing on Plasma Separator Tubes (PST) has a known false positive rate of 0.20-0.40%. All positive troponins reflex immediate secondary confirmatory testing. 81 Because ethnic data is not always readily [...] 15-29 5 Kidney failure <15 (or dialysis) 82 [facility] Severe Sepsis and Septic Shock Management Bundle Measure requires all lactic acids initially measuring >2.0 mmol/L be repeated. 83 Wax Pumper: [id number] 84 Wax Pumper: [id number] 85 No antibodies to WNV detected. Repeat testing in 10-14 days if clinical suspicion persists. Test Performed by: [facility] - [facility] [address] [place] [address] 86 Warning: A positive result is not useful for establishing a diagnosis of syphilis. In most situations, such a result may reflect a prior treated infection; a negative result can exclude a diagnosis of syphilis except for incubating or early primary disease. 87 SEE RESULT BELOW Name: TAZ REYNOLDS : [address]: Sanford Jamison DO Acct: [id number] Unit: [id number] AGE: 48 Location: [facility] Re09/07/18 SEX: M Status: REG REF SPEC: [id number] JACKSON: 09/07/[address]: Sanford Jamison DO REQ: [id number] RECD: 09/07/18 STATUS: COMP _ SOURCE: BLOOD,VENO SPDESC: ORDERED: Blood Cult Procedure Result Reported Site Aerobic Culture Bottle Final 09/12/18- 1229 ML No Growth Day 5 Anaerobic Culture Bottle Final 09/12/18- 1229 ML No Growth Day 5 * [facility] - [facility] Lab . END OF REPORT DEPARTMENT OF PATHOLOGY, [address] [place] [address] Wild Alves M.D. Director [facility] # [id number] 88 It is recognized that currently available assays [...] 95% confidence interval of 99.78 to 99.96%. 89 This individual DOES have the Methylenetetrahydrofolate reductase [...] therapy). If clinically indicated, suggest Coagulation Consultation 74053 (Thrombophila Profile) to complete the evaluation for an inherited or acquired thrombosing disorder (i.e., thrombophilia). Consider genetic consultation and counseling of potentially affected family members regarding laboratory testing. ADDITIONAL INFORMATION This test is a direct mutation analysis using PCR amplification, signal generation and release by cleavage of sequence specific alleles ([employer], [employer], [place], [place]). This test has been modified from the home theater specialist's instructions. Its performance characteristics were determined by [facility] in a manner consistent with CLIA requirements. This test has not been cleared or approved by the U.S. Food and Drug Administration. 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 MTHAC L1813E carriers are not at increased risk for thrombosis in the absence of hyperhomocysteinemia. In the absence of alternative causes, heterozygous carriers of MTHAC B6855V are not at increased risk for hyperhomocysteinemia. Hyperhomocysteinemia is a relatively weak risk factor for both venous thromboembolism and arterial thrombosis. The MTHAC I5829G gene mutation test does not detect other causes of hyperhomocysteinemia due to acquired disorders (renal failure, zinc deficiency, leukemia, psoriasis, or antifolate drug therapy). If clinically indicated, suggest Coagulation Consultation 25450 (Thrombophila Profile) to complete the evaluation for an inherited or acquired thrombosing disorder (i.e., thrombophilia). Consider genetic consultation and counseling of potentially affected family members regarding laboratory testing. ADDITIONAL INFORMATION This test is a direct mutation analysis using PCR amplification, signal generation and release by cleavage of sequence specific alleles ([employer], [employer], [place], [place]). This test has been modified from the home theater specialist's instructions. Its performance characteristics were determined by [facility] in a manner consistent with CLIA requirements. This test has not been cleared or approved by the U.S. Food and Drug Administration. 92 RESULT: EULALIO Cloud This test is a direct mutation analysis using PCR amplification, signal generation and release by cleavage of sequence specific alleles ([employer], [employer], [place], [place]). This test has been modified from the home theater specialist's instructions. Its performance characteristics were determined by [facility] in a manner consistent with CLIA requirements. This test has not been cleared or approved by the U.S. Food and Drug Administration. Test Performed by: [facility] - [address] [address] 93 Normal Range 180 to 914 Indeterminate Range 145 to 180 Deficient Range <145 94 ADDITIONAL INFORMATION This test was developed and its performance characteristics determined by [facility] in a manner consistent with CLIA requirements. This test has not been cleared or approved by the U.S. Food and Drug Administration. 95 ADDITIONAL INFORMATION This test was developed and its performance characteristics determined by [facility] in a manner consistent with CLIA requirements. This test has not been cleared or approved by the U.S. Food and Drug Administration. Test Performed by: [facility] - [address] [address] 96 ADDITIONAL INFORMATION This test was developed and its performance characteristics determined by [facility] in a manner consistent with CLIA requirements. This test has not been cleared or approved by the U.S. Food and Drug Administration. 97 No bands detected 98 No bands detected 99 Specific serologic response to B. burgdorferi infection [...] >=30 days of symptoms. Test Performed by: [facility] [place] [address] 100 REFERENCE VALUE <4.0 (Negative) Test Performed by: [place] [address] 101 Negative serology. Celiac disease unlikely. However, approximately 10% of patients with celiac disease are seronegative. Also, patients who are already adhering to a gluten-free diet may be seronegative. If celiac disease is highly clinically suspected, consider HLA-DQ typing. Test Performed by: [facility] [place] [address] 102 RESULT: 01:02,05:01 REFERENCE VALUE Not Applicable 103 RESULT: 02:01,06:04 DQ Serologic Equivalent: 2,6 REFERENCE VALUE Not Applicable 104 These genes are permissive for celiac disease. The absence of HLA celiac permissive genes would make the presence of celiac disease unlikely. However, these genes can also be present in the normal population. ADDITIONAL INFORMATION Method: Molecular typing of HLA antigens performed using reverse SSOP and/or SSP methods, reported as serological equivalents and low to medium resolution molecular values. Performing Laboratory CLIA# [id number] Test Performed by: [address] [address] 105 Because ethnic data is not always readily [...] (or dialysis) Procedures Date Code Description Status 10/26/2018 [id number] Diabetic Retinal Eye Exam Completed 10/05/2018 [id number] Diabetic Foot Exam Completed 09/07/2018 47721 SC/Im Injections Completed Encounters Type Date Location Provider Dx Diagnosis Office Visit 02/07/2019 Main Office Sanford Jamison, K66.0 Peritoneal adhesions 3:30p D.O. (postprocedural) (postinfection) M54.5 Low back pain R11.2 Nausea with vomiting, unspecified E11.65 Type 2 diabetes mellitus with hyperglycemia G90.09 Other idiopathic peripheral autonomic neuropathy K59.00 Constipation, unspecified R10.30 Lower abdominal pain, unspecified K46.9 Unspecified abdominal hernia without obstruction or gangrene F41.9 Anxiety disorder, unspecified H26.9 Unspecified cataract R60.9 Edema, unspecified Office Visit 02/01/2019 3:00p Main Office Sanford Jamison, R11.2 Nausea with D.O. vomiting, unspecified E11.65 Type 2 diabetes mellitus with hyperglycemia Z98.84 Bariatric surgery status G90.09 Other idiopathic peripheral autonomic neuropathy K59.00 Constipation, unspecified K66.0 Peritoneal adhesions (postprocedural) (postinfection) M54.5 Low back pain R10.30 Lower abdominal pain, unspecified K46.9 Unspecified abdominal hernia without obstruction or gangrene F41.9 Anxiety disorder, unspecified H26.9 Unspecified cataract R60.9 Edema, unspecified Office Visit 01/03/2019 2:30p Main Office Sanford Jamison, E11.65 Type 2 diabetes D.O. mellitus with hyperglycemia R45.851 Suicidal ideations Z98.84 Bariatric surgery status G90.09 Other idiopathic peripheral autonomic neuropathy R27.9 Unspecified lack of coordination K59.00 Constipation, unspecified K66.0 Peritoneal adhesions (postprocedural) (postinfection) M54.5 Low back pain R10.30 Lower abdominal pain, unspecified K46.9 Unspecified abdominal hernia without obstruction or gangrene F41.9 Anxiety disorder, unspecified H26.9 Unspecified cataract R60.9 Edema, unspecified Office Visit 12/04/2018 4:00p Main Office Sanford Jamison, R45.851 Suicidal D.O. ideations E11.65 Type 2 diabetes mellitus with hyperglycemia [...] other serum enzymes Plan of Treatment Future Appointment(s):04/05/2019 8:55 am - Sanford Jamison D.O. at Main Ruufhq3102/07/2019 - Sanford Jamison D.O.K66.0 Peritoneal adhesions ( postprocedural) (postinfection)Follow up:as ntcottcppA10.5 Low back painR11.2 Nausea with vomiting, mgexpptwcbaF66.65 Type 2 diabetes mellitus with wwijcifhpafnrG96.09 Other idiopathic peripheral autonomic qyhzhqpqtwS03.00 Constipation, esrjcgsvlokX88.30 Lower abdominal pain, woxuxzvpioyB53.9 Unspecified abdominal hernia without obstruction or hbkyndjgI17.9 Anxiety disorder, mzchgeziklvE82.9 Unspecified pnhdrslvN91.9 Edema, unspecified
--- OUTSIDE RECORDS SUMMARY | 2019-02-21 20:34 | XMS REPORT | Continuity of Care Document ---
:1970 External Reference #:[id number] Author Name Sanford Jamison D.O. Address [address] [place] [id number] Care Team Providers Name Role Phone HCP given Primary Care Physician Unavailable Payers Date Identification Numbers Payment Provider Subscriber Policy Number: [id number] Suarez/[employer] ([place] Taz Reynolds PayID: [id number] [address] [address] [place] [address] Problems Active Problems Provider Date Type 2 [...] a former smoker Unknown Smoking Status Reviewed: 02/01/19 Patient is a former smoker Allergies, Adverse Reactions, Alerts Description No Known Drug Allergies Medications Active Medications SIG Qnty Indications Ordering Date Provider Colace 1 by mouth twice a Unknown [...] drop right eye 45ml Sanford Jamison, 12/04/2018 - twice daily on a D.O. 01/31/2019 1.4% Solution regular basis and might use 1 drop in either eye twice a day as needed G-Rntxvudarayq-Eyv 1 by mouth twice a 180caps Sanford Jamison, 11/16/2018 - ae-B12-B6 day D.O. 12/03/2018 3-90.314-2-35mg Capsules Metanx 1 by mouth twice a 180caps Sanford Jamison, 10/19/2018 - day D.O. 11/16/2018 3-90.314-2-35mg Capsules R-Gztunpuwjprw-Tav 1 by mouth twice a 180caps Sanford Jamison, 10/05/2018 - ae-B12-B6 day D.O. 10/19/2018 3-90.314-2-35mg Capsules Zinc 1 by mouth every day Unknown 10/04/2018 - 50mg Tablets 01/02/2019 Magnesium daily Sanford Jamison, 10/04/2018 - D.O. 12/03/2018 Lisinopril 1 by mouth twice 180tabs I10 Sanford Jamison, 10/04/2018 - 10mg daily D.O. 10/30/2018 Tablets [...] - Potency time a week for 12/03/2018 [id number] vitamin d deficiency Tablets Percocet 1 tab [...] D.O. 09/07/2018 Injection SC/Im Injections Sanford Jamison D.O. 09/07/2018 Injection Immunizations CPT Code Status Date Vaccine Lot # [id number] Given 07/01/2016 Td(Adult),Unspecified Vital Signs Date Vital Result Comment 02/01/2019 3:27pm BP Systolic 130 mmHg BP [...] Facility Test Result H/L Range Note Inr/Protime 01/18/2019 [facility] Inr 0.99 N 0.82-1.09 3 [phone] Laboratory test 01/03/2019 In House Hemoglobin A1c 7.0 finding Comp Metabolic 12/15/2018 [facility] Sodium 138 mmol/L N 135-145 Panel [phone] Potassium 4.0 mmol/L N 3.5-5.0 Chloride 102 [...] Egfr Non- 150.2 >60 Egfr 181.7 >60 2 CBC Auto Diff 12/15/2018 [facility] White Blood Count 6.2 10^3/uL N 3.5-10.8 [phone] Red Blood Count 4.71 10^6/uL N 4.18-5.48 [...] Blood Cells % 0.0 Laboratory test 12/15/2018 [facility] Hemoglobin A1c 7.5 % High 4.0- 5.6 3 finding [phone] (Glyco HGB) Venous Blood Gas 12/15/2018 [facility] Venous Blood pH 7.54 High 7.32 -7.43 [phone] Venous Pco2 35 mmHg Low 41-51 Venous Po2 < 38.0 mmHg N 35-45 Venous O2 Saturation 48.6 % Low 70-80 Venous Blood Base Excess 7.2 mmol/L High 0.0-4.0 4 Venous Bicarbonate Hco3 29.2 mmol/L High 24-28 CBC Auto Diff 12/14/2018 [facility] White Blood Count 6.9 10^3/uL N 3.5-10.8 [phone] Red Blood Count 4.22 10^6/uL N 4.18-5.48 [...] Blood Cells % 0.0 Comp Metabolic Panel 12/14/2018 [facility] Sodium 139 mmol/L N 135- 145 [phone] Potassium 4.3 mmol/L N 3.5-5.0 Chloride 105 [...] Egfr Non- 129.4 >60 Egfr 156.5 >60 5 Laboratory test finding 12/14/2018 [facility] Alcohol < 10 mg/dL N < 10 [phone] Salicylate < 2.50 mg/dL <30 TSH (Thyroid Stim Horm) 0.66 mcIU/mL N 0.34-5.60 Acetaminophen < 15 g/mL 6 Urinalysis Profile 12/14/2018 [facility] Urine Color Yellow [phone] Urine Appearance Cloudy Urine Specific Downs 1.018 N 1.010-1.030 Urine pH 7.0 N [...] Urine Calcium Oxalate Cryst Present Abnormal Absent Urine Drug 12/14/2018 [facility] Urine Amphetamine None Detected None Detect SCR ED & [phone] Screen Pain Clinic Urine Barbiturates Screen None Detected None Detect Urine Benzodiazepine Screen None Detected None Detect Urine Cannabinoids Screen Presumptive Posi <SEE NOTE> Abnormal None Detect 7 Urine Cocaine Screen None Detected None Detect Urine Opiates Screen Presumptive Posi <SEE NOTE> Abnormal None Detect 8 Urine Phencyclidine Screen None Detected None Detect 9 Urine Culture And 12/14/2018 [facility] Urine Culture SEE RESULT 10 Sensitivities [phone] BELOW Laboratory test 12/14/2018 [facility] Point of Care 266 mg/dL High 70 -100 11 finding [phone] Glucose Urine Culture And 12/04/2018 [facility] Urine Culture SEE RESULT 12 Sensitivities [phone] BELOW Urine Drug SCR ED 12/04/2018 [facility] Urine None None & Pain Clinic [phone] Amphetamine Detected Detect Screen Urine Barbiturates Screen None Detected None Detect Urine Benzodiazepine Screen None Detected None Detect Urine Cannabinoids Screen Presumptive Posi <SEE NOTE> Abnormal None Detect 13 Urine Cocaine Screen None Detected None Detect Urine Opiates Screen Presumptive Posi <SEE NOTE> Abnormal None Detect 14 Urine Phencyclidine Screen None Detected None Detect 15 Urinalysis Profile 12/04/2018 [facility] Urine Color Alva [phone] Urine Appearance Cloudy Urine Specific Downs 1.035 High 1.010-1.030 Urine pH 5.0 N 5-9 Urine Urobilinogen Negative Negative Urine Ketones 2+ Abnormal Negative Urine Protein 3+(>=500 mg/dL) Abnormal Negative Urine Leukocytes Trace Abnormal Negative Urine Blood Negative Negative * * Abnormal Negative 16 Urine Nitrite Negative Negative Urine Bilirubin Negative Negative Urine Glucose 1+(50 mg/dL) Abnormal Negative Urine White Blood Cell 2+(11-20/hpf) Abnormal Absent Urine Red Blood Cell 2+(6-10/hpf) Abnormal Absent Urine Bacteria Absent Absent Urine Squamous Epithelial Cell Present Abnormal Absent Laboratory test finding 12/04/2018 [facility] Acetaminophen < 15 g/ mL 17 [phone] Alcohol < 10 mg/dL N <10 Salicylate < 2.50 mg/dL <30 TSH (Thyroid Stim Horm) 1.98 mcIU/mL N 0.34-5.60 Comp Metabolic Panel 12/04/2018 [facility] Sodium 133 mmol/L Low 135- 145 [phone] Potassium 4.0 mmol/L N 3.5-5.0 Chloride 95 [...] Egfr Non- 139.1 >60 Egfr 168.3 >60 18 CBC Auto Diff 12/04/2018 [facility] White Blood Count 8.1 10^3/uL N 3.5-10.8 [phone] Red Blood Count 4.94 10^6/uL N 4.18-5.48 [...] Red Blood Cells % 0 Laboratory 12/04/2018 [facility] Point of Care 152 mg/dL High 70-100 19 test finding [phone] Glucose Laboratory 11/30/2018 [facility] Point of Care 135 mg/dL High 70-100 20 test finding [phone] Glucose Laboratory 11/30/2018 [facility] Point of Care 158 mg/dL High 70-100 21 test finding [phone] Glucose Laboratory 11/21/2018 [facility] Point of Care 171 mg/dL High 70-100 22 test finding [phone] Glucose Laboratory 11/21/2018 [facility] Point of Care 252 mg/dL High 70-100 23 test finding [phone] Glucose Laboratory 11/14/2018 [facility] Point of Care 212 mg/dL High 70-100 24 test finding [phone] Glucose Laboratory 10/05/2018 In House Hemoglobin A1c 8.7 test finding Alkaline Phos 10/05/2018 [facility] Alkaline 363 U/L Abnormal 40 - 129 Isoenzymes [phone] Phosphatase Alp Liver 1% 47.0 % 27.8-76.3 Alp Liver 1 170.6 IU/L Abnormal 16.2-70.2 Alp Liver 2% 28.5 % Abnormal 0.0-8.0 Alp Liver 2 103.5 IU/L Abnormal 0.0-5.8 Alp Bone % 24.5 % 19.1-67.7 Alp Bone 88.9 IU/L Abnormal 12.1-42.7 Alp Intestine % 0.0 % 0.0-20.6 Alp Intestine 0.0 IU/L 0.0-11.0 Alp Placental NotPresent 25 Laboratory test 10/05/2018 [facility] Vitamin A 48.7 g/dL 32.5- 78.0 26 finding [phone] (Retinol) Vitamin E 13.4 mg/L 5.5 - 17.0 27 Vitamin E 10/05/2018 [facility] Vitamin E 13.4 mg/L 5.5 - 17.0 28 [phone] Laboratory test 10/05/2018 [facility] Vitamin A 48.7 g/dL 32.5- 78.0 29 finding [phone] (Retinol) Pthi 10/05/2018 [facility] Calcium (PTH 8.7 mg/dL N 8.6-10.3 [phone] Intact) PTH Intact 3.3 pmol/L N 1.3-9.3 Laboratory test finding 10/05/2018 [facility] Iron (Fe) 32 g/dL Low 50-212 [phone] TSH (Thyroid Stim Horm) 1.14 mcIU/mL N 0.34-5.60 Vitamin B12 744 pg/mL N 180-914 30 Vitamin D Total 25(Oh) 24.9 ng/mL N 20-50 Comp Metabolic Panel 10/05/2018 [facility] Sodium 138 mmol/L N 135- 145 [phone] Potassium 5.0 mmol/L N 3.5-5.0 Chloride 99 [...] Egfr Non- 156.4 >60 Egfr 189.2 >60 31 CBC Auto Diff 10/05/2018 [facility] White Blood Count 5.2 10^3/uL N 3.5-10.8 [phone] Red Blood Count 4.41 10^6/uL N 4.00-5.40 [...] Red Blood Cells % 0 Inr/Protime 10/05/2018 [facility] Inr 0.89 N 0.77-1.02 [phone] Fentanyl 09/27/2018 [facility] Norfentanyl Level 546.2 32 Confirmation Urine [phone] ng/mL Fentanyl Level 39.2 ng/mL 33 Fentanyl Interp Positive. 34 Drug Abuse 20 Urine 09/27/2018 [facility] Urine Amphetamine Negative ng /mL 35 [phone] Urine Barbiturates Negative ng/mL 36 Urine Benzodiazepines Negative ng/mL 37 Urine Cocaine Negative ng/mL 38 Urine Phencyclidine Negative ng/mL Cutoff: 25 Urine Tetrahydrocannabinol Negative ng/mL Cutoff: 50 39 Creatinine, Urine 246.4 mg/dL Specific Downs 1.022 pH 5.8 Oxidants Negative 40 Adulterants Comment Normal Codeine, Ur Not Detected ng/mL Cutoff: 25 41 Cvnwbsg-9-zged-glucuronide, Ur Not Detected ng/mL 42 Morphine, Ur Not Detected ng/mL Cutoff: 25 43 Hkjtagzo-5-drod-glucuronide, U Not Detected ng/mL 44 6-monoacetylmorphine, Ur Not Detected ng/mL Cutoff: 25 45 Hydrocodone, Ur Not Detected ng/mL Cutoff: 25 46 Norhydrocodone, Ur Not Detected ng/mL Cutoff: 25 47 Dihydrocodeine, Ur Not Detected ng/mL Cutoff: 25 48 Hydromorphone, Ur Not Detected ng/mL Cutoff: 25 49 Aqbahycfstqxv3cjvvijmfjhmasnh Not Detected ng/mL 50 Oxycodone, Ur Present ng/mL Abnormal Cutoff: 25 51 Noroxycodone, Ur Present ng/mL Abnormal Cutoff: 25 52 Oxymorphone, Ur Not Detected ng/mL Cutoff: 25 53 Wwgcnnnives-4-lihm-glucuronide Present ng/mL Abnormal 54 Noroxymorphone, Ur Present ng/mL Abnormal Cutoff: 25 55 Fentanyl, Ur Present ng/mL Abnormal Cutoff: 2 56 Norfentanyl, Ur Present ng/mL Abnormal Cutoff: 2 57 Meperidine, Ur Not Detected ng/mL Cutoff: 25 58 Normeperidine, Ur Not Detected ng/mL Cutoff: 25 59 Naloxone, Ur Not Detected ng/mL Cutoff: 25 60 Ujhmuypf-4-uewg-glucuronide, U Not Detected ng/mL 61 Methadone, Ur Not Detected ng/mL Cutoff: 25 62 Eddp, Ur Not Detected ng/mL Cutoff: 25 63 Propoxyphene, Ur Not Detected ng/mL Cutoff: 25 64 Norpropoxyphene, Ur Not Detected ng/mL Cutoff: 25 65 Tramadol, Ur Not Detected ng/mL Cutoff: 25 66 O-desmethyltramadol, Ur Not Detected ng/mL Cutoff: 25 67 Tapentadol, Ur Not Detected ng/mL Cutoff: 25 68 N-desmethyltapentadol, Ur Not Detected ng/mL Cutoff: 50 69 Rwrspcqimt-uksy-jbuenldlzop, U Not Detected ng/mL 70 Buprenorphine, Ur Not Detected ng/mL Cutoff: 5 71 Norbuprenorphine, Ur Not Detected ng/mL Cutoff: 5 72 Norbuprenorphine glucuronide Not Detected ng/mL Cutoff: 20 73 Opioid Interpretation See Comment 74 Urine Culture And 09/13/2018 [facility] Urine Culture SEE RESULT 75 Sensitivities [phone] BELOW Urinalysis Profile 09/13/2018 [facility] Urine Color Yellow [phone] Urine Appearance Clear Urine Specific Downs 1.021 N 1.010-1.030 Urine pH 7.0 N [...] Bacteria Absent Absent Laboratory test finding 09/13/2018 [facility] Lipase 56 U/L N 11.0- 82.0 [phone] C Reactive Protein 5.83 mg/L N <8.01 Troponin-I (TnI) 0.01 ng/mL <0.04 76 Comp Metabolic Panel 09/13/2018 [facility] Sodium 136 mmol/L N 135- 145 [phone] Potassium 4.5 mmol/L N 3.5-5.0 Chloride 102 [...] Egfr Non- 127.1 >60 Egfr 153.8 >60 77 Laboratory test 09/13/2018 [facility] Lactic Acid 1.7 mmol/L N 0.5- 2.0 78 finding [phone] CBC Auto Diff 09/13/2018 [facility] White Blood 5.7 10^3/uL N 3.5- 10.8 [phone] Count Red Blood Count 4.05 10^6/uL N [...] Blood Cells % 0 Laboratory test 09/13/2018 [facility] Point of Care 65 mg/dL Low 70- 100 79 finding [phone] Glucose Laboratory test 09/13/2018 [facility] Point of Care 54 mg/dL Low 70- 100 80 finding [phone] Glucose West Nile Igg And 09/07/2018 [facility] West Nile Virus Negative Negative Igm [phone] IgG West Nile Virus IgM Negative Negative West Nile Serum Interpretation See Comment 81 Laboratory test 09/07/2018 [facility] Syphillis Igg Nonreactive Nonreactive 82 finding [phone] W/Reflex RPR Blood Culture SEE RESULT BELOW 83 HIV 1/2 AB 09/07/2018 [facility] HIV 1 2 Nonreactive Nonreactive 84 Evaluation [phone] Antibody MTHFR 09/07/2018 [facility] MTHFR Heterozygous Abnormal Negative Mutation [phone] C677T Detection Mutation MTHFR Interpretation See Comment 85 MTHFR Reviewed By See Comment 86 MTHFR [id number] Mutation Heterozygous Abnormal Negative Mthac Interpretation See Comment 87 Mthac Reviewed By See Comment 88 Laboratory test 09/07/2018 [facility] Vitamin B12 743 pg/mL N 180- 899 89 finding [phone] Tick-Borne Panel 09/07/2018 [facility] Babesia microti Negative Negative PCR Blood [phone] PCR Babesia ducani Negative Negative Babesia divergens/Mo-1 Negative Negative 90 Anaplasma phagocytophilum Negative Negative Ehrlichia chaffeensis Negative Negative Ehrlichia ewingii/canis Negative Negative B. miyamotoi PCR, B Negative Negative 91 Ehrlichia muris eauclairensis Negative Negative 92 Lyme Western Blot 09/07/2018 [facility] Lyme Disease IgG Negative Negative [phone] Ab WB Lyme Disease IgG Bands Present No bands detecte <SEE NOTE> kDa 93 Lyme Disease IgM Ab WB Negative Negative Lyme Disease IgM Bands Present No bands detecte <SEE NOTE> kDa 94 Lyme Disease Interpretation See Comment 95 Celiac Panel 09/07/2018 [facility] Tissue Transglutaminase IgA <1.2 U/ mL 96 [phone] Ab Immunoglobulin A 190 mg/dL 61 - 356 Celiac Interpretation See Comment 97 Celiac Hla 09/07/2018 [facility] Hla-Dqa1 SEE BELOW 98 [phone] Hla-DQB1 SEE BELOW 99 Celiac Gene Pairs Present? Yes Celiac Gene Interpretation See Comment 100 Laboratory test 09/07/2018 [facility] Folic Acid > 20.00 ng/mL > 3.99 finding [phone] (Folate) Magnesium 1.9 mg/dL N 1.9-2.7 Comp Metabolic Panel 09/07/2018 [facility] Sodium 139 mmol/L N 135- 145 [phone] Potassium 4.3 mmol/L N 3.5-5.0 Chloride 101 [...] Egfr Non- 129.4 >60 Egfr 156.5 >60 101 CBC Auto Diff 09/07/2018 [facility] White Blood Count 6.3 10^3/uL N 3.5-10.8 [phone] Red Blood Count 4.61 10^6/uL N 4.00-5.40 [...] Nucleated Red Blood Cells % 0 1 Standard intensity warfarin therapeutic range: 2.0-3.0 High intensity warfarin therapeutic range: 2.5-3.5 2 Because ethnic data is not always readily [...] 15-29 5 Kidney failure <15 (or dialysis) 3 Therapeutic target for the treatment of diabetes mellitus patients is <7% HBA1C, and in selective patients <6.0%. Please refer to [place] [employer] diabetic care guidelines for further information. 4 Reference ranges based on room air. 5 Because ethnic data is not always readily [...] 15-29 5 Kidney failure <15 (or dialysis) 6 Therapeutic concentration: <50 ug/mL Toxic concentration: >120 ug/mL 7 Presumptive Positive Presumptive positive results are unconfirmed. 8 Presumptive Positive Presumptive positive results are unconfirmed. 9 The urine specimen was tested at the listed cutoffs: Drug class test level (ng/mL) Amphetamines 500 Barbiturates 200 Benzodiazepine metabolites 200 Cocaine metabolites 150 Cannabinoids 50 Opiates 300 Pcp 25 Specimen was received without chain of custody. Results should be used for medical purposes only. 10 SEE RESULT BELOW Name: TAZ REYNOLDS : [address]: Pura Serra MD Acct: [id number] Unit: [id number] AGE: 48 Location: [place] [address] Re12/15/18 SEX: M Status: ADM Fatimah SPEC: [id number] JACKSON: 12/14/[address] [facility] [address]: Keith Ames MD REQ: [id number] RECD: 12/14/18 STATUS: IBAN MARQUIS DR: Sanford Jamison DO _ SOURCE: URINE [facility]: ORDERED: Urine Culture Procedure Result Reported Site Urine Culture Final 12/18/18- 0850 ML Organism 1 ENTEROCOCCUS FAECALIS [place] Count >100,000 (Many) CFU/ML Organism 2 NORMAL ESTRELLA [place] Count 75-100,000 (Many) CFU/ML 1. ENTEROCOCCUS FAECALIS [...] These antibiotics are not available in the [facility] Formulary Contact the Microbiology Department for any additional antibiotic reporting. * ML - Main Lab . END OF REPORT DEPARTMENT OF PATHOLOGY, [address] [place] [address] Wild Alves M.D. Director [facility] # [id number] 11 [employer]: [id number] 12 SEE RESULT BELOW Name: TAZ REYNOLDS : [address]: Pura Serra MD Acct: [id number] Unit: [id number] AGE: 48 Location: [facility] Re12/05/18 SEX: M Status: ADM IN SPEC: [id number] JACKSON: 12/04/[address]: Farhan Licona MD REQ: [id number] RECD: 12/04/18 STATUS: IBAN MARQUIS DR: [facility] Sanford Jamison DO _ SOURCE: URINE [facility]: ORDERED: Urine Culture Procedure Result Reported Site Urine Culture Final 12/06/18- 1004 ML No Growth (<1,000 CFU/mL) * ML - Main Lab . END OF REPORT DEPARTMENT OF PATHOLOGY, [address] [place] [address] Wild Alves M.D. Director [facility] # [id number] 13 Presumptive Positive Presumptive positive results are unconfirmed. 14 Presumptive Positive Presumptive positive results are unconfirmed. 15 The urine specimen was tested at the listed cutoffs: Drug class test level (ng/mL) Amphetamines 500 Barbiturates 200 Benzodiazepine metabolites 200 Cocaine metabolites 150 Cannabinoids 50 Opiates 300 Pcp 25 Specimen was received without chain of custody. Results should be used for medical purposes only. 16 *Ascorbic acid is present which may interfere with detection of blood. 17 Therapeutic concentration: <50 ug/mL Toxic concentration: >120 ug/mL 18 Because ethnic data is not always readily [...] 15-29 5 Kidney failure <15 (or dialysis) 19 [employer]: [id number] 20 [employer]: [id number] 21 [employer]: [id number] 22 [employer]: [id number] 23 [employer]: [id number] 24 [employer]: [id number] 25 REFERENCE VALUE Not present Test Performed by: [facility] - [address] [address] 26 ADDITIONAL INFORMATION This test was developed and its performance characteristics determined by [facility] in a manner consistent with CLIA requirements. This test has not been cleared or approved by the U.S. Food and Drug Administration. Test Performed by: [facility] - [address] [address] 27 ADDITIONAL INFORMATION This test was developed and its performance characteristics determined by [facility] in a manner consistent with CLIA requirements. This test has not been cleared or approved by the U.S. Food and Drug Administration. Test Performed by: [facility] - [address] [address] 28 ADDITIONAL INFORMATION This test was developed and its performance characteristics determined by [facility] in a manner consistent with CLIA requirements. This test has not been cleared or approved by the U.S. Food and Drug Administration. Test Performed by: [facility] [employer] [facility] [place] [address] 29 ADDITIONAL INFORMATION This test was developed and its performance characteristics determined by [facility] in a manner consistent with CLIA requirements. This test has not been cleared or approved by the U.S. Food and Drug Administration. Test Performed by: [facility] - [address] [address] 30 Normal Range 180 to 914 Indeterminate Range 145 to 180 Deficient Range <145 31 Because ethnic data is not always readily [...] 15-29 5 Kidney failure <15 (or dialysis) 32 REFERENCE VALUE Cutoff: 1.0 33 REFERENCE VALUE Cutoff: 0.2 34 ADDITIONAL INFORMATION This test was developed and its performance characteristics determined by [facility] in a manner consistent with CLIA requirements. This test has not been cleared or approved by the U.S. Food and Drug Administration. Test Performed by: [facility] - [facility] [address] [facility], [place], [place] [address] 35 REFERENCE VALUE Cutoff: 500 36 REFERENCE VALUE Cutoff: 200 37 REFERENCE VALUE Cutoff: 100 38 REFERENCE VALUE Cutoff: 150 39 ADDITIONAL INFORMATION This report is intended for use in clinical monitoring or management of patients. It is not intended for use in employment-related testing. 40 REFERENCE VALUE Cutoff: 200 mg/L 41 Tylenol 3 42 Metabolite of codeine REFERENCE VALUE Cutoff: 100 43 Avinza, Marielos, MS Contin; Also a minor metabolite (10%) of codeine and can be seen in low concentrations (<2,000 ng/mL) with poppy seed ingestion. 44 Metabolite of morphine REFERENCE VALUE Cutoff: 100 45 Metabolite of heroin 46 Lortab, Strandquist, Vicodin; Also a very minor metabolite of codeine and impurity (<1%) of oxycodone. 47 Metabolite of hydrocodone 48 Metabolite of hydrocodone 49 Dilaudid, Exalgo; Also a metabolite of hydrocodone and a minor (<5%) metabolite of morphine. 50 Metabolite of hydromorphone REFERENCE VALUE Cutoff: 100 51 Endocet, Percocet, Oxycontin 52 Metabolite of oxycodone 53 Numorphan, Opana; Also a metabolite of oxycodone. 54 Metabolite of oxymorphone REFERENCE VALUE Cutoff: 100 55 Metabolite of oxymorphone 56 Actiq, Duragesic, Fentora 57 Metabolite of fentanyl 58 Demerol 59 Metabolite of meperidine 60 Narcan 61 Metabolite of naloxone REFERENCE VALUE Cutoff: 100 62 Dolophine 63 Metabolite of methadone 64 Darvon, Darvocet 65 Metabolite of propoxyphene 66 Tradol, Ultram, Ultracet 67 Metabolite of tramadol 68 Nucynta 69 Metabolite of tapentadol 70 Metabolite of tapentadol REFERENCE VALUE Cutoff: 100 71 Buprenex, Suboxone 72 Metabolite of buprenorphine 73 Metabolite of buprenorphine 74 Test detected the presence of oxycodone and several metabolites (noroxycodone, noroxymorphone, and rispueteoii-0-xaow-glucuronide). Suspect use of oxycodone and/or oxymorphone within the past three days. Test detected the presence of fentanyl and its metabolite (norfentanyl). Suspect use of fentanyl within the past three days. ADDITIONAL INFORMATION This test was developed and its performance characteristics determined by [facility] in a manner consistent with CLIA requirements. This test has not been cleared or approved by the U.S. Food and Drug Administration. Test Performed by: [facility] - [facility] [address] [place] [id number] 75 SEE RESULT BELOW Name: TAZ REYNOLDS : [address]: Michael Alexis MD Acct: [id number] Unit: [id number] AGE: 48 Location: [facility] 333- Re09/14/18 SEX: M Status: ADM IN SPEC: [id number] JACKSON: 09/14/18-[address] [facility] [address]: Farhan Pham MD REQ: [id number] RECD: 09/14/187 STATUS: IBAN MARQUIS DR: Shravan Hannon, DO Nugenton Yaquelin DO _ SOURCE: URINE [facility]: ORDERED: Urine Culture Procedure Result Reported Site Urine Culture Final 09/15/18926 ML No Growth (<1,000 CFU/mL) * ML - Main Lab . END OF REPORT DEPARTMENT OF PATHOLOGY, [address] [place] [address] Wild Alves M.D. Director [facility] # [id number] 76 Troponin-I testing on Plasma Separator Tubes (PST) has a known false positive rate of 0.20-0.40%. All positive troponins reflex immediate secondary confirmatory testing. 77 Because ethnic data is not always [...] 15-29 5 Kidney failure <15 (or dialysis) 78 [facility] Severe Sepsis and Septic Shock Management Bundle Measure requires all lactic acids initially measuring >2.0 mmol/L be repeated. 79 [employer]: [id number] 80 [employer]: [id number] 81 No antibodies to WNV detected. Repeat testing in 10-14 days if clinical suspicion persists. Test Performed by: [facility] [place] [facility] [address] [place] [address] 82 Warning: A positive result is not useful for establishing a diagnosis of syphilis. In most situations, such a result may reflect a prior treated infection; a negative result can exclude a diagnosis of syphilis except for incubating or early primary disease. 83 SEE RESULT BELOW Name: TAZ REYNOLDS : [address]: Sanford Jamison DO Acct: [id number] Unit: [id number] AGE: 48 Location: [facility] Re09/07/18 SEX: M Status: REG REF SPEC: [id number] JACKSON: 09/07/[address]: Sanford Jamison DO REQ: [id number] RECD: 09/07/18 STATUS: COMP _ SOURCE: BLOOD,[facility]: ORDERED: Blood Cult Procedure Result Reported Site Aerobic Culture Bottle Final 09/12/181228 ML No Growth Day 5 Anaerobic Culture Bottle Final 09/12/181228 ML No Growth Day 5 * ML - Main Lab . END OF REPORT DEPARTMENT OF PATHOLOGY, [address] [place] [address] Wild Alves M.D. Director [facility] # [id number] 84 It is recognized that currently available assays [...] 95% confidence interval of 99.78 to 99.96%. 85 This individual DOES have the Methylenetetrahydrofolate reductase [...] therapy). If clinically indicated, suggest Coagulation Consultation 45205 (Thrombophila Profile) to complete the evaluation for an inherited or acquired thrombosing disorder (i.e., thrombophilia). Consider genetic consultation and counseling of potentially affected family members regarding laboratory testing. ADDITIONAL INFORMATION This test is a direct mutation analysis using PCR amplification, signal generation and release by cleavage of sequence specific alleles ([employer], [employer], [place], [place]). This test has been modified from the outreach educator's instructions. Its performance characteristics were determined by [facility] in a manner consistent with CLIA requirements. This test has not been cleared or approved by the U.S. Food and Drug Administration. 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 MTHAC K8295L carriers are not at increased risk for thrombosis in the absence of hyperhomocysteinemia. In the absence of alternative causes, heterozygous carriers of MTHAC S9763C are not at increased risk for hyperhomocysteinemia. Hyperhomocysteinemia is a relatively weak risk factor for both venous thromboembolism and arterial thrombosis. The MTHAC Q5148U gene mutation test does not detect other causes of hyperhomocysteinemia due to acquired disorders (renal failure, zinc deficiency, leukemia, psoriasis, or antifolate drug therapy). If clinically indicated, suggest Coagulation Consultation 06183 (Thrombophila Profile) to complete the evaluation for an inherited or acquired thrombosing disorder (i.e., thrombophilia). Consider genetic consultation and counseling of potentially affected family members regarding laboratory testing. ADDITIONAL INFORMATION This test is a direct mutation analysis using PCR amplification, signal generation and release by cleavage of sequence specific alleles ([employer], [employer], [place], [place]). This test has been modified from the outreach educator's instructions. Its performance characteristics were determined by [facility] in a manner consistent with CLIA requirements. This test has not been cleared or approved by the U.S. Food and Drug Administration. 88 RESULT: EULALIO Cloud This test is a direct mutation analysis using PCR amplification, signal generation and release by cleavage of sequence specific alleles ([employer], [employer], [place]). This test has been modified from the outreach educator's instructions. Its performance characteristics were determined by [facility] in a manner consistent with CLIA requirements. This test has not been cleared or approved by the U.S. Food and Drug Administration. Test Performed by: [facility] - [address] [address] 89 Normal Range 180 to 914 Indeterminate Range 145 to 180 Deficient Range <145 90 ADDITIONAL INFORMATION This test was developed and its performance characteristics determined by [facility] in a manner consistent with CLIA requirements. This test has not been cleared or approved by the U.S. Food and Drug Administration. 91 ADDITIONAL INFORMATION This test was developed and its performance characteristics determined by [facility] in a manner consistent with CLIA requirements. This test has not been cleared or approved by the U.S. Food and Drug Administration. Test Performed by: [facility] [place] - [address] [address] 92 ADDITIONAL INFORMATION This test was developed and its performance characteristics determined by [facility] in a manner consistent with CLIA requirements. This test has not been cleared or approved by the U.S. Food and Drug Administration. 93 No bands detected 94 No bands detected 95 Specific serologic response to B. burgdorferi infection [...] days of symptoms. Test Performed by: [facility] [place] - [address] [address] 96 REFERENCE VALUE <4.0 (Negative) Test Performed by: [facility] [place] - [address] [address] 97 Negative serology. Celiac disease unlikely. However, approximately 10% of patients with celiac disease are seronegative. Also, patients who are already adhering to a gluten-free diet may be seronegative. If celiac disease is highly clinically suspected, consider HLA-DQ typing. Test Performed by: [facility] [place] - [facility] [address] [place] [address] 98 RESULT: 01:02,05:01 REFERENCE VALUE Not Applicable 99 RESULT: 02:01,06:04 DQ Serologic Equivalent: 2,6 REFERENCE VALUE Not Applicable 100 These genes are permissive for celiac disease. The absence of HLA celiac permissive genes would make the presence of celiac disease unlikely. However, these genes can also be present in the normal population. ADDITIONAL INFORMATION Method: Molecular typing of HLA antigens performed using reverse SSOP and/or SSP methods, reported as serological equivalents and low to medium resolution molecular values. Performing Laboratory CLIA# [id number] Test Performed by: [facility] - [address] [address] 101 Because ethnic data is not always readily [...] dialysis) Procedures Date Code Description Status 10/26/2018 [id number] Diabetic Retinal Eye Exam Completed 10/05/2018 [id number] Diabetic Foot Exam Completed 09/07/2018 17946 SC/Im Injections Completed Encounters Type Date Location Provider Dx Diagnosis Office Visit 02/01/2019 Main Office Sanford Jamison, R11.2 Nausea with vomiting, 3:00p D.O. unspecified E11.65 Type 2 diabetes mellitus with [...] other serum enzymes Plan of Treatment Future Appointment(s):02/08/2019 2:00 pm - Sanford Jamison D.O. at Main Mbmtrk8004/05/2019 8:55 am - Sanford Jamison D.O. at Main Noxbkl4502/01/2019 - Sanford Jamison D.O.R11.2 Nausea with vomiting, unspecifiedNew Xrays:CT Abdomen and Pelvis w/ Contrast, Ordered: 02/01/19Follow up:1 week gkdowhkngD24.65 Type 2 diabetes mellitus with hyperglycemiaNew Xrays:CT Abdomen and Pelvis w/ Contrast, Ordered: 02/01/19Z98.84 Bariatric surgery statusNew Xrays:CT Abdomen and Pelvis w/ Contrast, Ordered: 02/01/19G90.09 Other idiopathic peripheral autonomic uzfahzavxoO46.00 Constipation, ofwcsmloxhfQ14.0 Peritoneal adhesions ( postprocedural) (postinfection)M54.5 Low back painR10.30 Lower abdominal pain, cbrdpdbqivjU54.9 Unspecified abdominal hernia without obstruction or vifprgmhW71.9 Anxiety disorder, vujiabkbcutU50.9 Unspecified etdqxymkM67.9 Edema , unspecified
--- NOTE | 2019-02-22 01:11 | ED ---
Adult Trauma - HPI Summary HPI Summary: Pt is a 48 y/o M presenting to the ED with a chief complaint of a fall. He states on 02/20/19 at about 2215 he left his room, it was dark, and he lost his balance and fell. He hit the R side of his head on the door frame as well as the floor, and he woke up an undetermined amount of time later. After getting back into bed, he had a short episode of slurred speech. He saw his PCP on who told him to come into the ED for a scan. He currently reports headache and back pain. He denies neck pain. - History of Current Complaint Chief Complaint: EDHeadInjury Stated Complaint: FALL/UNCONSCIOUS LAST NIGHT PER PT Time Seen by Provider: 02/22/19 00:51 Hx Obtained From: Patient Mechanism of Injury: Fall Loss of Consciousness: unsure Onset/Duration: Started Days Ago, Still Present Onset of Pain: Days Onset Severity: Severe Current Severity: Moderate Pain Intensity: 7 Pain Scale Used: 0-10 Numeric Location: Head, Back Character: Sharp Aggravating Factor(s): Nothing Alleviating Factor(s): Nothing Associated Signs & Symptoms: Positive: Loss of Consciousness - Additional Pertinent History Primary Care Physician: [id number] - Allergy/Home Medications Allergies/Adverse Reactions: Allergies Allergy/AdvReac Type Severity Reaction Status Date / Time No Known Allergies Allergy Verified 02/21/19 20:22 PMH/Surg Hx/FS Hx/Imm Hx Previously Healthy: Yes Endocrine/Hematology History: Reports: Hx Diabetes - type 1 Denies: Hx Thyroid Disease Cardiovascular History: Reports: Hx Cardiomegaly - ?, Hx Hypertension - past/ also has had low bp Denies: Hx Congestive Heart Failure, Hx Pacemaker/ICD, Other Cardiovascular Problems/Disorders Respiratory History: Reports: Hx Sleep Apnea - HISTORY OF WEIGHT LOSS AND NO LONGER HAS OR USES BIPAP, Other Respiratory Problems/Disorders Denies: Hx Asthma, Hx Chronic Obstructive Pulmonary Disease (COPD) GI History: Reports: Hx Gall Bladder Disease - gall bladder removal, Hx Irritable Bowel - mild Denies: Hx Ulcer, Other GI Disorders History: Reports: Hx Benign Prostatic Hyperplasia - TURP 2014, Other Problems/Disorders - incontinence SELF CATH Q 6 HOUR Denies: Hx Kidney Stones, Hx Renal Disease Musculoskeletal History: Reports: Hx Arthritis, Hx Back Problems - back pain, Other Musculoskeletal History - muscle atroophy Sensory History: Reports: Hx Cataracts - kailee, Hx Contacts or Glasses Denies: Hx Hearing Aid Opthamlomology History: Reports: Hx Cataracts - kailee, Hx Contacts or Glasses Neurological History: Reports: Hx Headaches, Hx Migraine, Hx Nerve Disease - abd pain, hips r/t neuropaty/ polyneuritis, Hx Seizures - hypoglycemic seizures Denies: Hx Transient Ischemic Attacks (TIA) Comment Only: Other Neuro Impairments/Disorders - OCCASIONAL NUMB FINGERS DUE TO LYMPH NODE SWELLING BILATERAL ARMPITS Psychiatric History: Reports: Hx Anxiety - had, pt denies currently, no longer takes meds, Hx Depression - OVER ILLNESS, Hx Suicide Attempt - 5 years ago Denies: Hx Eating Disorder, Hx Panic Disorder, Hx Inpatient Treatment, Hx Community Mental Health Tx, Hx of Violent Episodes Against Others - Surgical History Surgery Procedure, Year, and Place: GALL BLADDER REMOVED,2007. bariatric surgery (April 2013). Nasal Surgery, 1999. Knee surgery left , 1981. Tonsillectomy, 1998. [id number]. removed some soft palette of mouth, 1998. TURP, 2015, [facility] Hx Anesthesia Reactions: No - Immunization History Date of Tetanus Vaccine: utd Date of Influenza Vaccine: 09/01 Infectious Disease History: No Infectious Disease History: Denies: Hx Hepatitis, Hx Human Immunodeficiency Virus (HIV), Traveled Outside the [place] in Last 30 Days - Family History Known Family History: Negative: Respiratory Disease, Seizure Disorder - Social History Alcohol Use: None Hx Substance Use: Yes Substance Use Type: Reports: None Substance Use Comment - Amount & Last Used: medical Hx Tobacco Use: Yes Smoking Status (MU): Former Smoker Type: Cigarettes Amount Used/How Often: on and off for years Have You Smoked in the Last Year: No Review of Systems Negative: Other - neck pain Positive: Myalgia - back pain Positive: Headache, Slurred Speech All Other Systems Reviewed And Are Negative: Yes Physical Exam - Summary Physical Exam Summary: Constitutional: Well-developed, Well-nourished, Alert. (-) Distressed Skin: Warm, Dry HENT: Normocephalic; Atraumatic Eyes: Conjunctiva normal Neck: Musculoskeletal ROM normal neck. (-) JVD, (-) Stridor, (-) Tracheal deviation Cardio: Rhythm regular, rate normal, Heart sounds normal; Intact distal pulses; The pedal pulses are 2+ and symmetric. Radial pulses are 2+ and symmetric. Pulmonary/Chest wall: Effort normal. (-) Respiratory distress, (-) Wheezes, (-) Rales Abd: Soft, (-) tenderness, (-) Distension, (-) Guarding, (-) Rebound Musculoskeletal: (-) Edema. Mid-thoracic paraspinal muscle spasm, significantly more on the L compared to the R. Neuro: Alert, Oriented x3 Psych: Mood and affect Normal Triage Information Reviewed: Yes Vital Signs On Initial Exam: Initial Vitals Temp Pulse Resp BP Pulse Ox 98.9 F 76 16 120/85 97 02/21/19 20:15 02/21/19 20:15 02/21/19 20:15 02/21/19 20:15 02/21/19 20:15 Vital Signs Reviewed: Yes - [place] Coma Scale Best Eye Response: 4 - Spontaneous Best Motor Response: 6 - Obeys Commands Best Verbal Response: 5 - Oriented Coma Scale Total: 15 Diagnostics - Vital Signs Vital Signs Temp Pulse Resp BP Pulse Ox 02/21/19 22:35 98.5 F 70 16 133/84 98 02/21/19 20:15 98.9 F 76 16 120/85 97 - Laboratory Lab Statement: Any lab studies that have been ordered have been reviewed, and results considered in the medical decision making process. - CT Brain CT CT Interpretation Completed By: Radiologist Summary of CT Findings: No traumatic intracranial abnormalities. ED physician has reviewed this report. Adult Trauma Course/Dx - Course Course Of Treatment: Pt is a 48 y/o M presenting to the ED with a chief complaint of a fall. He states on 02/20/19 at about 2215 he left his room, it was dark, and he lost his balance and fell. He hit the R side of his head on the door frame as well as the floor, and he woke up an undetermined amount of time later. After getting back into bed, he had a short episode of slurred speech. He saw his PCP on 02/21/19 who told him to come into the ED for a scan. He currently reports headache and back pain. He denies neck pain. Brain CT shows no traumatic intracranial abnormalities. Pt will be d/c'ed with dx of concussion. He is stable and agreeable with this plan. - Diagnoses Provider Diagnoses: Concussion Discharge - Sign-Out/Discharge Documenting (check all that apply): Patient Departure Patient Received Moderate/Deep Sedation with Procedure: No - Discharge Plan Condition: Stable Disposition: HOME Patient Education Materials: Concussion (ED) Referrals: Sanford Jamison DO [Primary Care Provider] - - Billing Disposition and Condition Condition: STABLE Disposition: Home - Attestation Statements Document Initiated by Scribe: Yes Documenting Scribe: Sherita Nichols Provider For Whom Dillon is Documenting (Include Credential): Michael Grant MD. Scribe Attestation: Sherita Norris scribed for Michael Grant MD. on 02/22/19 at 0626. Scribe Documentation Reviewed: Yes Provider Attestation: The documentation as recorded by the Sherita short accurately reflects the service I personally performed and the decisions made by Michael guillen MD. Status of Scribe Document: Viewed
[2019-02-22 03:25] VITALS: BP 151/91
== END 2019-02-22 03:20 | disposition home or self-care (01) ==
LOC: ED 19:57
DX: S06.0X9A Concussion with loss of consciousness of unspecified duration, initial encounter (principal); W19.XXXA Unspecified fall, initial encounter; Y92.009 Unspecified place in unspecified non-institutional (private) residence as the place of occurrence of the external cause; E10.9 Type 1 diabetes mellitus without complications; Z87.891 Personal history of nicotine dependence
CPT/HCPCS: 70450; 99282

== ENCOUNTER → 2019-11-01 08:44 | Day surgery (SDC) | payer OTHER ==
[~2019-11-01 08:44] MED LIST changes: +EPHEDrine (Pressors)* 50 MG/ML VIAL ONE; -Famotidine IV* 10 MG/ML 2 ML (20 mg) IV ONE; -Famotidine IV* 10 MG/ML 2 ML (20 mg) ONE; -Lidocaine 2% PF * 5 ML VIAL ONE; -Midazolam* 1 MG/ML 5 ML VIAL (5 MG) ONE; -Naloxone* 0.4 MG/ML 1 ML VIAL IV PRN; +Phenylephrine 40 MCG/ML SYRINGE ONE; -fentaNYL* 50 MCG/ML 2 ML VIAL (100 MCG VIAL) ONE
[2019-11-01 11:11] LABS: BUN/Creatinine Ratio 33.8 (8-20); Calcium 8.2 mg/dL (8.6-10.3); EGFR African American 124.8 (>60); EGFR Non-African American 103.2 (>60); Potassium 4.6 mmol/L (3.5-5.0)
[2019-11-01 12:53] VITALS: BP 157/88
--- NOTE | 2019-11-20 15:48 | PRO ---
CC: Dr. Sanford Jamison* DATE OF PROCEDURE: 11/01/2019. INDICATION FOR PROCEDURE: Constipation. PROCEDURE PERFORMED: Complete colonoscopy to the cecum. MEDICATIONS GIVEN: Please seen anesthesia record. DESCRIPTION OF PROCEDURE: After the colonoscopy procedure, including the risks , benefits, and alternatives, with the risks not limited to perforation, surgery , missed lesions, and/or were explained to the patient, written informed consent was obtained. IV medication was given and a rectal exam was performed. The adult Olympus colonoscope was then inserted into the patient's rectum and advanced very carefully through the entirety of the colon and into the cecal base. The preparation was poor, but much better than the previous attempt. The views could almost be washed to fair. The ileocecal valve was identified and normal in appearance. Over the next 20 minutes, the scope was carefully withdrawn inspecting the mucosa. No large or medium lesions were identified. Some stool was unable to be washed from the sides, but overall the views were much better than the previous attempt. On return to the rectum, direct views were normal. On retroflexion, the views were normal as well. The scope was then removed from the patient. He tolerated the procedure well. He returned to the recovery room in stable condition. IMPRESSION: 1. Complete colonoscopy to the cecum. 2. Poor prep, but borderline fair views were obtained after washing. No large or medium sized polyps were seen. Stool in some areas was unable to be washed, could obscure small lesions. RECOMMENDATIONS: Will recommend repeating in about three years' time given it is difficult to fully clear his colon. He did do an extended prep of about seven to ten days and I am not sure he could tolerate much beyond this. I do feel confident that no large or medium lesions were seen today. Will continue Kathy and plan on a colonoscopy in three years' time. [id number]/[facility] #: [id number] [facility]ALTHCAREGladis
== END | disposition home or self-care (01) ==
LOC: OR 08:44
PROVIDERS: ATTEND Internal Medicine Gastroenterology
DX: K59.03 Drug induced constipation (principal); R10.9 Unspecified abdominal pain; K62.89 Other specified diseases of anus and rectum; K62.5 Hemorrhage of anus and rectum; R74.0 Nonspecific elevation of levels of transaminase and lactic acid dehydrogenase [LDH]; K75.3 Granulomatous hepatitis, not elsewhere classified; K58.9 Irritable bowel syndrome, unspecified; E10.9 Type 1 diabetes mellitus without complications; Z79.4 Long term (current) use of insulin; E66.01 Morbid (severe) obesity due to excess calories; I10 Essential (primary) hypertension; F17.210 Nicotine dependence, cigarettes, uncomplicated
CPT/HCPCS: 36415; 80048; J2405; J2704

== ENCOUNTER 2020-04-21 09:24 | Inpatient (IN) ==
[2020-04-21] MEDS ORDERED: Rocuronium 50 mg VIAL 10 mg/ml 5 ml VIAL (50 mg) IV ONE (09:33)
[2020-04-21] MEDS ORDERED: Etomidate 20 mg/10 ml 2 MG/ML 10 ml VIAL IV ONE (09:33)
[2020-04-21] MEDS ORDERED: NS 0.9% 1000 ml BAG 1,000 ML IV ONE (09:33)
[2020-04-21 10:03] LABS: ABS Eosinophils 0.1 10^3/ul (0-0.6); ABS Lymphocytes 0.6 10^3/ul (1.0-4.8); ABS Monocytes 0.5 10^3/ul (0-0.8); ABS Neutrophils 10.3 10^3/ul (1.5-7.7); Eosinophil % 0.6 %; Hematocrit 34 % (42-52); Hemoglobin 10.9 g/dL (14.0-18.0); Lymphocyte % 5.5 %; Mean Corpuscular HGB Conc 32 g/dL (31-36); Mean Corpuscular Hemoglobin 29 pg (27-31); Mean Corpuscular Volume 89 fL (80-94); Mean Platelet Volume 8.3 fL (7.4-10.4); Platelet Count 171 10^3/uL (150-450); Red Blood Count 3.84 10^6 /uL (4.18-5.48); Red Cell Distribution Width 14 % (10-15); White Blood Count 11.6 10^3/uL (3.5-10.8)
[2020-04-21 10:22] LABS: ALT 36 U/L (7-52); AST 17 U/L (13-39); Albumin 3.2 g/dL (3.2-5.2); Albumin/Globulin Ratio 1.2 (1-3); Alkaline Phosphatase 113 U/L (34-104); BUN/Creatinine Ratio 36.8 (8-20); Blood Urea Nitrogen 91 mg/dL (6-24); C Reactive Protein 6.45 mg/L (<8.01); CO2 Carbon Dioxide 24 mmol/L (22-32); Calcium 7.5 mg/dL (8.6-10.3); Chloride 108 mmol/L (101-111); Creatine Kinase 130 U/L (10-223); EGFR African American 33.8 (>60); Globulin 2.6 g/dL (2-4); Glucose 284 mg/dL (70-100); Lipase 28 U/L (11.0-82.0); Magnesium 2.5 mg/dL (1.9-2.7); Sodium 138 mmol/L (135-145); Total Protein 5.8 g/dL (6.4-8.9)
[2020-04-21 10:25] LABS: INR 0.93 (0.82-1.09)
[2020-04-21 10:26] LABS: Anion Gap 6 mmol/L (2-11); Potassium 6.1 mmol/L (3.5-5.0); Troponin I 0.09 ng/mL (<0.03)
[2020-04-21] MEDS ORDERED: CALCIUM GLUCONATE 1GM/50ML NS 1 GM/50 ML BAG IV ONE (10:26)
[2020-04-21] MEDS ORDERED: Propofol 10 mg/ml 100 ML BTL 100 ML IV ONE (10:51)
[2020-04-21 10:56] LABS: Alcohol, S < 10 mg/dL (<10)
[2020-04-21 11:10] LABS: TSH Ultra Thyroid Stim Horm 0.71 mcIU/mL (0.34-5.60)
[2020-04-21] MEDS ORDERED: Sodium Phosphate ADULT ENEMA 133 ML BTL PR ONE (11:30)
[2020-04-21] MEDS ORDERED: CMCS:Methylnaltrexone SQ (NF) 12 MG/0.6 ML VIAL SUBCUT ONE (11:55)
[2020-04-21] MEDS ORDERED: cefTRIAXone 1 gm/50 mL NS BAG 1 GM/50 ML BAG IVPB SCH (12:00)
[2020-04-21] MEDS ORDERED: Methylnaltrexone 150 MG TAB PO SCH (12:00)
[2020-04-21] MEDS ORDERED: DOXYcycline 100 MG in NS 0.9% 250 ml 250 ML IVPB SCH (12:00)
[2020-04-21 12:07] LABS: Urine Appearance Cloudy; Urine Bilirubin Negative (Negative); Urine Blood Negative (Negative); Urine Color Yellow; Urine Glucose 1+(50 mg/dL) (Negative); Urine Ketones Negative (Negative); Urine Nitrite Negative (Negative); Urine Protein 1+(30 mg/dL) (Negative); Urine Specific Gravity 1.011 (1.010-1.030); Urine Urobilinogen Negative (Negative)
[2020-04-21 12:27] LABS: CKMB ng/mL 10.2 ng/mL (0.6-6.3)
[2020-04-21 12:29] LABS: Urine Bacteria Absent (Absent); Urine Red Blood Cell Absent (Absent); Urine White Blood Cell Absent (Absent)
[2020-04-21 12:34] LABS: Urine Benzodiazepine Screen None Detected (None Detect); Urine Cannabinoids Screen None Detected (None Detect); Urine Opiates Screen Presumptive Positive (None Detect)
[2020-04-21] MEDS ORDERED: Sodium Phosphate ADULT ENEMA 133 ML BTL ONE (13:12)
[2020-04-21 13:32] LABS: Myoglobin 104.5 ng/mL (17.4-105.7)
[2020-04-21 13:49] LABS: Acetaminophen < 15 mcg/mL; Salicylate < 2.50 mg/dL (<30)
[2020-04-21] MEDS ORDERED: Dextrose 50% Syringe 50 ml 25 GM/50 ML SYRINGE IV PUSH PRN (13:52)
[2020-04-21] MEDS ORDERED: Perflutren Lipid Microsphere 3 ML VIAL ONE (14:25)
[2020-04-21] MEDS: Dexmedetomidine 1,000 MCG in NS 0.9% 250 ml 240 ML IV SCH (14:59)
[2020-04-21 15:35] LABS: Troponin I 0.49 ng/mL (<0.03)
[2020-04-21 16:11] LABS: Albumin 3.2 g/dL (3.2-5.2); Anion Gap 10 mmol/L (2-11); CO2 Carbon Dioxide 19 mmol/L (22-32); Calcium 7.6 mg/dL (8.6-10.3); Chloride 112 mmol/L (101-111); Potassium 4.5 mmol/L (3.5-5.0); Sodium 141 mmol/L (135-145)
[2020-04-21 16:17] LABS: ALT 37 U/L (7-52); AST 24 U/L (13-39); Albumin/Globulin Ratio 1.2 (1-3); Alkaline Phosphatase 114 U/L (34-104); BUN/Creatinine Ratio 42.2 (8-20); Blood Urea Nitrogen 78 mg/dL (6-24); EGFR African American 47.2 (>60); Globulin 2.6 g/dL (2-4); Glucose 200 mg/dL (70-100); Total Protein 5.8 g/dL (6.4-8.9)
[2020-04-21] MEDS: DOXYcycline 100 MG in NS 0.9% 250 ml 250 ML IVPB SCH (16:36)
[2020-04-21] MEDS ORDERED: Norepinephrine 16MCG/ML IVPRE 4,000 MCG/250 ML BAG IV ONE (16:51)
[2020-04-21] MEDS: Norepinephrine 16MCG/ML IVPRE 4,000 MCG/250 ML BAG IV SCH (16:55)
[2020-04-21] MEDS ORDERED: LORazepam 2 mg VIAL 1 ml ONE (17:31)
[2020-04-21] MEDS ORDERED: Lorazepam PYXIS KEY ONE (17:31)
[2020-04-21] MEDS ORDERED: Rocuronium 50 mg VIAL 10 mg/ml 5 ml VIAL (50 mg) ONE (17:33)
[2020-04-21] MEDS ORDERED: Lorazepam PYXIS KEY PRN ×2 (18:08→18:17)
[2020-04-21] MEDS ORDERED: LORazepam 2 mg VIAL 1 ml IV PUSH ONE (18:08)
[2020-04-21] MEDS ORDERED: Acetaminophen IV 1 GM/100ML 100 ML IVPB ONE (18:27)
[2020-04-21 19:19] LABS: Troponin I 1.31 ng/mL (<0.03)
[2020-04-21] MEDS: Chlorhexidine MOUTHWASH 0.12% 15 ML UDC TOPICAL SCH ×2 (20:28→22:28)
[2020-04-21] MEDS: Heparin 5000 UNITS/ML 1 mL VIAL SUBCUT SCH (20:28)
[2020-04-21] MEDS: Famotidine IV 10 MG/ML 2 ml VIAL (20 mg) IV SLOW PU SCH (20:28)
[2020-04-21] MEDS: cefTRIAXone 1 gm/50 mL NS BAG 1 GM/50 ML BAG IVPB SCH (20:28)
[2020-04-21 22:44] LABS: Troponin I 1.61 ng/mL (<0.03)
[2020-04-22] MEDS: DOXYcycline 100 MG in NS 0.9% 250 ml 250 ML IVPB SCH ×2 (00:58→13:57)
[2020-04-22] MEDS: Chlorhexidine MOUTHWASH 0.12% 15 ML UDC TOPICAL SCH ×6 (02:26→22:36)
[2020-04-22 05:06] LABS: Hematocrit 31 % (42-52); Hemoglobin 10.3 g/dL (14.0-18.0); Mean Corpuscular HGB Conc 33 g/dL (31-36); Mean Corpuscular Hemoglobin 29 pg (27-31); Mean Corpuscular Volume 87 fL (80-94); Mean Platelet Volume 8.6 fL (7.4-10.4); Platelet Count 158 10^3/uL (150-450); Red Blood Count 3.59 10^6 /uL (4.18-5.48); Red Cell Distribution Width 14 % (10-15); White Blood Count 9.8 10^3/uL (3.5-10.8)
[2020-04-22 05:21] LABS: BUN/Creatinine Ratio 55.1 (8-20); Blood Urea Nitrogen 76 mg/dL (6-24); CO2 Carbon Dioxide 21 mmol/L (22-32); Calcium 7.7 mg/dL (8.6-10.3); EGFR African American 66.3 (>60); EGFR Non-African American 54.8 (>60); Glucose 221 mg/dL (70-100); Magnesium 2.1 mg/dL (1.9-2.7); Phosphorus 4.5 mg/dL (2.5-5.0); Potassium 4.8 mmol/L (3.5-5.0); Sodium 141 mmol/L (135-145)
[2020-04-22 05:24] LABS: Anion Gap 5 mmol/L (2-11); Chloride 115 mmol/L (101-111)
[2020-04-22 05:27] LABS: CKMB ng/mL 8.1 ng/mL (0.6-6.3)
[2020-04-22 08:13] LABS: Troponin I 2.15 ng/mL (<0.03)
[2020-04-22] MEDS: Heparin 5000 UNITS/ML 1 mL VIAL SUBCUT SCH (08:16)
[2020-04-22] MEDS: cefTRIAXone 1 gm/50 mL NS BAG 1 GM/50 ML BAG IVPB SCH ×2 (08:16→20:38)
[2020-04-22] MEDS: Famotidine IV 10 MG/ML 2 ml VIAL (20 mg) IV SLOW PU SCH ×2 (08:16→20:38)
[2020-04-22] MEDS ORDERED: Magnesium Sulfate 2 gm BAG 2 GM/50 ML BAG IVPB ONE (09:47)
[2020-04-22] MEDS ORDERED: Heparin 5000 UNITS/ML 1 mL VIAL IV SCH (10:00)
[2020-04-22] MEDS: Heparin DRIP 25,000 UNITS BAG 25,000 UNITS/500 ML BAG IV SCH (10:24)
[2020-04-22 12:26] LABS: Troponin I 1.98 ng/mL (<0.03)
[2020-04-22] MEDS: LORazepam 2 mg VIAL 1 ml IV PUSH PRN (15:02)
[2020-04-22] MEDS: Dexmedetomidine 1,000 MCG in NS 0.9% 250 ml 240 ML IV SCH (23:07)
[2020-04-23] MEDS: DOXYcycline 100 MG in NS 0.9% 250 ml 250 ML IVPB SCH ×2 (00:23→13:36)
[2020-04-23] MEDS: hydrALAZINE 20 mg/ml 1 ML Vial IV IV SLOW PU PRN ×4 (01:23→21:35)
[2020-04-23] MEDS: Chlorhexidine MOUTHWASH 0.12% 15 ML UDC TOPICAL SCH ×6 (02:32→23:41)
[2020-04-23] MEDS: LORazepam 2 mg VIAL 1 ml IV PUSH PRN ×4 (03:55→19:41)
[2020-04-23 05:46] LABS: ABS Basophils 0.1 10^3/ul (0-0.2); ABS Eosinophils 0.3 10^3/ul (0-0.6); ABS Lymphocytes 0.8 10^3/ul (1.0-4.8); ABS Monocytes 0.7 10^3/ul (0-0.8); ABS Neutrophils 7.4 10^3/ul (1.5-7.7); Eosinophil % 3.7 %; Hematocrit 33 % (42-52); Hemoglobin 10.9 g/dL (14.0-18.0); Lymphocyte % 8.8 %; Mean Corpuscular HGB Conc 33 g/dL (31-36); Mean Corpuscular Hemoglobin 28 pg (27-31); Mean Corpuscular Volume 87 fL (80-94); Mean Platelet Volume 9.2 fL (7.4-10.4); Nucleated Red Blood Cells % 0.1; Platelet Count 160 10^3/uL (150-450); Red Blood Count 3.85 10^6 /uL (4.18-5.48); Red Cell Distribution Width 14 % (10-15); White Blood Count 9.3 10^3/uL (3.5-10.8)
[2020-04-23 05:55] LABS: BUN/Creatinine Ratio 69.6 (8-20); Calcium 7.9 mg/dL (8.6-10.3); EGFR African American 105.8 (>60); EGFR Non-African American 87.4 (>60); Potassium 4.2 mmol/L (3.5-5.0)
[2020-04-23 08:00] LABS: Magnesium 2.4 mg/dL (1.9-2.7)
[2020-04-23] MEDS: Heparin DRIP 25,000 UNITS BAG 25,000 UNITS/500 ML BAG IV SCH (09:02)
[2020-04-23] MEDS ORDERED: Furosemide 40 mg/4 ml IV VIAL IV ONE ×2 (09:36→18:30)
[2020-04-23] MEDS: Famotidine IV 10 MG/ML 2 ml VIAL (20 mg) IV SLOW PU SCH ×2 (10:01→20:23)
[2020-04-23] MEDS: Insulin GLARGINE 100 un/ml 10 ml VIAL SUBCUT SCH (10:02)
[2020-04-23] MEDS: Dexmedetomidine 1,000 MCG in NS 0.9% 250 ml 240 ML IV SCH ×2 (10:04→19:49)
[2020-04-23] MEDS: cefTRIAXone 1 gm/50 mL NS BAG 1 GM/50 ML BAG IVPB SCH ×2 (10:04→20:21)
[2020-04-23] MEDS: Docusate LIQ 100 MG/10 ML UDC PO SCH ×2 (13:35→20:22)
[2020-04-23] MEDS ORDERED: Chlorhexidine MOUTHWASH 0.12% 15 ML UDC ONE (13:58)
[2020-04-23] MEDS ORDERED: Potassium Chlor 20 meq TAB.ER PO ONE (17:45)
[2020-04-23] MEDS ORDERED: fentaNYL 100 mcg/2 ml 50 MCG/ML VIAL IV SLOW PU ONE (19:51)
[2020-04-23] MEDS: Senna TAB 8.6 mg TAB PO SCH (20:23)
[2020-04-24] MEDS: DOXYcycline 100 MG in NS 0.9% 250 ml 250 ML IVPB SCH ×2 (00:45→12:22)
[2020-04-24] MEDS: LORazepam 2 mg VIAL 1 ml IV PUSH PRN ×3 (02:20→23:42)
[2020-04-24] MEDS ORDERED: fentaNYL 100 mcg/2 ml 50 MCG/ML VIAL ONE (02:27)
[2020-04-24] MEDS: fentaNYL 100 mcg/2 ml 50 MCG/ML VIAL IV SLOW PU PRN ×4 (02:30→23:31)
[2020-04-24] MEDS: Chlorhexidine MOUTHWASH 0.12% 15 ML UDC TOPICAL SCH ×6 (02:52→23:45)
[2020-04-24] MEDS: Dexmedetomidine 1,000 MCG in NS 0.9% 250 ml 240 ML IV SCH ×4 (03:13→23:37)
[2020-04-24 05:31] LABS: ABS Eosinophils 0.5 10^3/ul (0-0.6); ABS Lymphocytes 0.8 10^3/ul (1.0-4.8); ABS Monocytes 0.6 10^3/ul (0-0.8); ABS Neutrophils 8.2 10^3/ul (1.5-7.7); Eosinophil % 4.6 %; Hematocrit 33 % (42-52); Lymphocyte % 7.7 %; Mean Corpuscular HGB Conc 33 g/dL (31-36); Mean Corpuscular Hemoglobin 29 pg (27-31); Mean Corpuscular Volume 86 fL (80-94); Mean Platelet Volume 9.1 fL (7.4-10.4); Platelet Count 187 10^3/uL (150-450); Red Blood Count 3.84 10^6 /uL (4.18-5.48); Red Cell Distribution Width 14 % (10-15); White Blood Count 10.1 10^3/uL (3.5-10.8)
[2020-04-24 05:39] LABS: BUN/Creatinine Ratio 51.8 (8-20); Calcium 8.1 mg/dL (8.6-10.3); EGFR African American 119.2 (>60); EGFR Non-African American 98.5 (>60); Potassium 4.1 mmol/L (3.5-5.0)
[2020-04-24] MEDS: Heparin DRIP 25,000 UNITS BAG 25,000 UNITS/500 ML BAG IV SCH (07:28)
[2020-04-24] MEDS: cefTRIAXone 1 gm/50 mL NS BAG 1 GM/50 ML BAG IVPB SCH ×2 (08:45→19:55)
[2020-04-24] MEDS: Midazolam 50 MG VIAL IV DRIP 50 ML IV SCH ×2 (09:50→19:25)
[2020-04-24] MEDS ORDERED: Furosemide 40 mg/4 ml IV VIAL IV ONE (10:00)
[2020-04-24] MEDS: Insulin GLARGINE 100 un/ml 10 ml VIAL SUBCUT SCH (11:13)
[2020-04-24] MEDS: Polyethylene Glycol 3350 17 GM PACKET PO SCH (11:14)
[2020-04-24] MEDS: Docusate LIQ 100 MG/10 ML UDC PO SCH ×3 (11:14→19:53)
[2020-04-24] MEDS: Lubiprostone 24 MCG CAP (NF) PO SCH (11:14)
[2020-04-24] MEDS: Famotidine IV 10 MG/ML 2 ml VIAL (20 mg) IV SLOW PU SCH ×2 (11:19→19:53)
[2020-04-24] MEDS ORDERED: fentaNYL 100 mcg/2 ml 50 MCG/ML VIAL IV SLOW PU ONE (14:25)
[2020-04-24] MEDS ORDERED: fentaNYL INFUSION 50 MCG/ML 2,500 MCG/50 ML BAG IV SCH (15:00)
[2020-04-24] MEDS: Heparin 5000 UNITS/ML 1 mL VIAL SUBCUT SCH (19:53)
[2020-04-24] MEDS: Senna TAB 8.6 mg TAB PO SCH (19:54)
[2020-04-24] MEDS ORDERED: Alteplase (CATHFLO) 2 MG VIAL IV ONE (22:12)
[2020-04-25] MEDS: DOXYcycline 100 MG in NS 0.9% 250 ml 250 ML IVPB SCH (00:54)
[2020-04-25] MEDS: Midazolam 50 MG VIAL IV DRIP 50 ML IV SCH ×4 (01:30→20:34)
[2020-04-25] MEDS: Chlorhexidine MOUTHWASH 0.12% 15 ML UDC TOPICAL SCH ×6 (04:09→21:51)
[2020-04-25 05:20] LABS: ABS Basophils 0.1 10^3/ul (0-0.2); ABS Eosinophils 0.4 10^3/ul (0-0.6); ABS Lymphocytes 1.2 10^3/ul (1.0-4.8); ABS Monocytes 0.8 10^3/ul (0-0.8); ABS Neutrophils 7.9 10^3/ul (1.5-7.7); Eosinophil % 4.2 %; Hematocrit 31 % (42-52); Hemoglobin 10.7 g/dL (14.0-18.0); Lymphocyte % 11.8 %; Mean Corpuscular HGB Conc 35 g/dL (31-36); Mean Corpuscular Hemoglobin 30 pg (27-31); Mean Corpuscular Volume 87 fL (80-94); Mean Platelet Volume 8.7 fL (7.4-10.4); Platelet Count 172 10^3/uL (150-450); Red Blood Count 3.54 10^6 /uL (4.18-5.48); Red Cell Distribution Width 14 % (10-15); White Blood Count 10.4 10^3/uL (3.5-10.8)
[2020-04-25 05:45] LABS: Albumin 2.4 g/dL (3.2-5.2); Potassium 3.8 mmol/L (3.5-5.0); Total Bilirubin 0.3 mg/dL (0.2-1.0)
[2020-04-25 05:51] LABS: Albumin/Globulin Ratio 0.9 (1-3); BUN/Creatinine Ratio 44.4 (8-20); EGFR African American 140.4 (>60); Globulin 2.6 g/dL (2-4); Phosphorus 3.1 mg/dL (2.5-5.0)
[2020-04-25] MEDS: Dexmedetomidine 1,000 MCG in NS 0.9% 250 ml 240 ML IV SCH (05:56)
[2020-04-25] MEDS: Lubiprostone 24 MCG CAP (NF) PO SCH (08:11)
[2020-04-25] MEDS: cefTRIAXone 1 gm/50 mL NS BAG 1 GM/50 ML BAG IVPB SCH (08:14)
[2020-04-25] MEDS: Docusate LIQ 100 MG/10 ML UDC PO SCH ×3 (08:14→21:51)
[2020-04-25] MEDS: Heparin 5000 UNITS/ML 1 mL VIAL SUBCUT SCH ×2 (08:15→21:52)
[2020-04-25] MEDS: Famotidine IV 10 MG/ML 2 ml VIAL (20 mg) IV SLOW PU SCH ×2 (08:15→21:52)
[2020-04-25] MEDS: Polyethylene Glycol 3350 17 GM PACKET PO SCH (08:15)
[2020-04-25] MEDS ORDERED: Rocuronium 50 mg VIAL 10 mg/ml 5 ml VIAL (50 mg) ONE ×2 (08:49→10:18)
[2020-04-25] MEDS: fentaNYL 100 mcg/2 ml 50 MCG/ML VIAL IV SLOW PU PRN ×3 (08:52→19:31)
[2020-04-25] MEDS ORDERED: Piperacillin/Tazobac ADVAN 3.375 GM in NS 0.9% 100 ml BAG 100 ML IVPB ONE (09:10)
[2020-04-25] MEDS ORDERED: Furosemide 40 mg/4 ml IV VIAL IV SLOW PU ONE (09:23)
[2020-04-25] MEDS ORDERED: Vancomycin 1,500 MG in NS 0.9% 250 ml 250 ML IV ONE (09:23)
[2020-04-25] MEDS ORDERED: Zosyn per Pharmacy NOTE FOLLOW UP SCH (10:00)
[2020-04-25] MEDS ORDERED: Rocuronium 50 mg VIAL 10 mg/ml 5 ml VIAL (50 mg) IV ONE (10:19)
[2020-04-25] MEDS: Insulin GLARGINE 100 un/ml 10 ml VIAL SUBCUT SCH (10:45)
[2020-04-25] MEDS: Norepinephrine 16MCG/ML IVPRE 4,000 MCG/250 ML BAG IV SCH (11:49)
[2020-04-25] MEDS: Methadone ORALSYR CONC LIQ 10 MG/ML PO SCH ×3 (11:49→22:09)
[2020-04-25] MEDS ORDERED: Propofol 10 mg/ml 100 ML BTL 100 ML IV SCH (12:00)
[2020-04-25] MEDS: Albuterol/Ipratropium NEB.SOL (2.5/0.5 MG) 3 ML NEB.SOLN INH SCH ×5 (13:58→23:15)
[2020-04-25] MEDS: ZOSYN 3.375 GM Q8H per EXTENDED INFUSION IV SCH ×2 (15:25→23:57)
[2020-04-25] MEDS: fentaNYL INFUSION 50 MCG/ML 2,500 MCG/50 ML BAG IV SCH (15:37)
[2020-04-25] MEDS: LORazepam 2 mg VIAL 1 ml IV PUSH PRN ×2 (16:33→19:32)
[2020-04-25] MEDS: Senna TAB 8.6 mg TAB PO SCH (21:51)
[2020-04-26] MEDS: Midazolam 50 MG VIAL IV DRIP 50 ML IV SCH ×3 (02:00→12:27)
[2020-04-26] MEDS: Chlorhexidine MOUTHWASH 0.12% 15 ML UDC TOPICAL SCH ×6 (03:06→23:45)
[2020-04-26] MEDS: Albuterol/Ipratropium NEB.SOL (2.5/0.5 MG) 3 ML NEB.SOLN INH SCH ×6 (03:15→22:37)
[2020-04-26] MEDS ORDERED: Furosemide 40 mg/4 ml IV VIAL IV ONE (03:51)
[2020-04-26 05:09] LABS: Hematocrit 34 % (42-52); Hemoglobin 10.8 g/dL (14.0-18.0); Mean Corpuscular HGB Conc 32 g/dL (31-36); Mean Corpuscular Hemoglobin 28 pg (27-31); Mean Corpuscular Volume 89 fL (80-94); Mean Platelet Volume 8.9 fL (7.4-10.4); Platelet Count 230 10^3/uL (150-450); Red Blood Count 3.81 10^6 /uL (4.18-5.48); Red Cell Distribution Width 15 % (10-15); White Blood Count 17.3 10^3/uL (3.5-10.8)
[2020-04-26 05:16] LABS: ABS Basophils 0.1 10^3/ul (0-0.2); ABS Eosinophils 0.4 10^3/ul (0-0.6); ABS Lymphocytes 1.6 10^3/ul (1.0-4.8); ABS Monocytes 1.6 10^3/ul (0-0.8); ABS Neutrophils 13.7 10^3/ul (1.5-7.7); Eosinophil % 2.5 %; Lymphocyte % 9.1 %
[2020-04-26 05:26] LABS: BUN/Creatinine Ratio 25.6 (8-20); Calcium 7.9 mg/dL (8.6-10.3); EGFR African American 55.9 (>60); EGFR Non-African American 46.2 (>60); Potassium 4.4 mmol/L (3.5-5.0)
[2020-04-26] MEDS: ZOSYN 3.375 GM Q8H per EXTENDED INFUSION IV SCH ×3 (06:16→22:27)
[2020-04-26] MEDS: LORazepam 2 mg VIAL 1 ml IV PUSH PRN (08:03)
[2020-04-26] MEDS: Famotidine IV 10 MG/ML 2 ml VIAL (20 mg) IV SLOW PU SCH ×2 (08:41→21:15)
[2020-04-26] MEDS: Heparin 5000 UNITS/ML 1 mL VIAL SUBCUT SCH ×2 (08:41→21:15)
[2020-04-26] MEDS: Methadone ORALSYR CONC LIQ 10 MG/ML PO SCH ×4 (08:41→21:15)
[2020-04-26] MEDS: Docusate LIQ 100 MG/10 ML UDC PO SCH ×3 (08:41→21:14)
[2020-04-26] MEDS: Lubiprostone 24 MCG CAP (NF) PO SCH (08:41)
[2020-04-26] MEDS: Polyethylene Glycol 3350 17 GM PACKET PO SCH (08:42)
[2020-04-26] MEDS ORDERED: Vancomycin per Pharmacy 1 EA NOTE FOLLOW UP PRN (09:08)
[2020-04-26] MEDS: Insulin GLARGINE 100 un/ml 10 ml VIAL SUBCUT SCH (09:56)
[2020-04-26] MEDS ORDERED: Vancomycin 1,500 MG in NS 0.9% 250 ml 250 ML IV ONE (10:00)
[2020-04-26] MEDS: Norepinephrine 16MCG/ML IVPRE 4,000 MCG/250 ML BAG IV SCH (10:31)
[2020-04-26] MEDS ORDERED: Albumin Human 25% 25 GM/100 ML BTL IV ONE ×2 (11:00→14:00)
[2020-04-26] MEDS: fentaNYL INFUSION 50 MCG/ML 2,500 MCG/50 ML BAG IV SCH (11:12)
[2020-04-26] MEDS ORDERED: Acetylcysteine INH SOL (RT) 200 MG/ML 4 ML VIAL INH ONE (15:48)
[2020-04-26] MEDS ORDERED: Acetylcysteine INHALATION SOL 200 MG/ML NEB.SOLN 10 ML INH SCH (16:00)
[2020-04-26] MEDS: Acetylcysteine INHALATION SOL 200 MG/ML NEB.SOLN 10 ML INH SCH ×2 (16:01→22:36)
[2020-04-26] MEDS ORDERED: Metoclopramide 5 MG/ML VIAL (10 mg) ONE (17:10)
[2020-04-26] MEDS ORDERED: Metoclopramide 5 MG/ML VIAL (10 mg) IV SLOW PU ONE (17:28)
[2020-04-26] MEDS: Nystatin TOP POWDER 15 GM BTL TOPICAL SCH ×2 (18:23→21:15)
[2020-04-26] MEDS ORDERED: Nystatin TOP POWDER 15 GM BTL TOPICAL SCH (21:00)
[2020-04-26] MEDS: Senna TAB 8.6 mg TAB PO SCH (21:14)
[2020-04-26] MEDS: hydrALAZINE 20 mg/ml 1 ML Vial IV IV SLOW PU PRN (21:27)
[2020-04-26] MEDS: Vancomycin 1,250 MG in NS 0.9% 250 ml 250 ML IV SCH (23:45)
[2020-04-27] MEDS: Chlorhexidine MOUTHWASH 0.12% 15 ML UDC TOPICAL SCH ×6 (02:15→22:23)
[2020-04-27 05:36] LABS: ABS Eosinophils 0.8 10^3/ul (0-0.6); ABS Monocytes 1.2 10^3/ul (0-0.8); ABS Neutrophils 8.7 10^3/ul (1.5-7.7); Eosinophil % 6.8 %; Hematocrit 27 % (42-52); Hemoglobin 8.9 g/dL (14.0-18.0); Lymphocyte % 8.4 %; Mean Corpuscular HGB Conc 34 g/dL (31-36); Mean Corpuscular Hemoglobin 29 pg (27-31); Mean Corpuscular Volume 88 fL (80-94); Mean Platelet Volume 8.8 fL (7.4-10.4); Platelet Count 178 10^3/uL (150-450); Red Blood Count 3.02 10^6 /uL (4.18-5.48); Red Cell Distribution Width 15 % (10-15); White Blood Count 11.7 10^3/uL (3.5-10.8)
[2020-04-27 05:46] LABS: BUN/Creatinine Ratio 27.7 (8-20); Calcium 7.7 mg/dL (8.6-10.3); EGFR African American 49.7 (>60); EGFR Non-African American 41.1 (>60); Potassium 4.3 mmol/L (3.5-5.0)
[2020-04-27] MEDS: ZOSYN 3.375 GM Q8H per EXTENDED INFUSION IV SCH ×3 (06:26→22:22)
[2020-04-27] MEDS ORDERED: Albuterol/Ipratropium NEB.SOL (2.5/0.5 MG) 3 ML NEB.SOLN INH SCH (07:00)
[2020-04-27] MEDS: Acetylcysteine INHALATION SOL 200 MG/ML NEB.SOLN 10 ML INH SCH ×3 (07:21→19:39)
[2020-04-27] MEDS: Lubiprostone 24 MCG CAP (NF) PO SCH (07:48)
[2020-04-27] MEDS: Polyethylene Glycol 3350 17 GM PACKET PO SCH (08:14)
[2020-04-27] MEDS: Docusate LIQ 100 MG/10 ML UDC PO SCH (08:14)
[2020-04-27] MEDS: Famotidine IV 10 MG/ML 2 ml VIAL (20 mg) IV SLOW PU SCH ×2 (08:22→20:39)
[2020-04-27] MEDS: Metoclopramide 5 MG/ML VIAL (10 mg) IV SLOW PU SCH ×2 (08:22→16:25)
[2020-04-27] MEDS: Nystatin TOP POWDER 15 GM BTL TOPICAL SCH ×3 (08:23→20:39)
[2020-04-27] MEDS: Methadone ORALSYR CONC LIQ 10 MG/ML PO SCH ×4 (08:23→20:39)
[2020-04-27] MEDS: Heparin 5000 UNITS/ML 1 mL VIAL SUBCUT SCH ×2 (08:23→20:39)
[2020-04-27] MEDS ORDERED: Insulin GLARGINE 100 un/ml 10 ml VIAL SUBCUT SCH (09:00)
[2020-04-27] MEDS: Insulin GLARGINE 100 un/ml 10 ml VIAL SUBCUT SCH (10:15)
[2020-04-27] MEDS: Vancomycin 1,250 MG in NS 0.9% 250 ml 250 ML IV SCH (11:02)
[2020-04-27] MEDS: Albuterol/Ipratropium NEB.SOL (2.5/0.5 MG) 3 ML NEB.SOLN INH PRN ×2 (12:40→19:39)
[2020-04-27] MEDS ORDERED: Furosemide 40 mg/4 ml IV VIAL IV ONE (15:56)
[2020-04-27] MEDS: D5W 1000 ml BAG 1,000 ML IVPB SCH (16:59)
[2020-04-27] MEDS: Senna TAB 8.6 mg TAB PO SCH (20:39)
[2020-04-27] MEDS: fentaNYL INFUSION 50 MCG/ML 2,500 MCG/50 ML BAG IV SCH (20:52)
[2020-04-28] MEDS: Vancomycin 1,250 MG in NS 0.9% 250 ml 250 ML IV SCH ×2 (00:20→14:14)
[2020-04-28] MEDS: Metoclopramide 5 MG/ML VIAL (10 mg) IV SLOW PU SCH (00:20)
[2020-04-28] MEDS: Acetylcysteine INHALATION SOL 200 MG/ML NEB.SOLN 10 ML INH SCH ×3 (00:46→13:16)
[2020-04-28] MEDS: Albuterol/Ipratropium NEB.SOL (2.5/0.5 MG) 3 ML NEB.SOLN INH PRN ×4 (00:46→19:27)
[2020-04-28] MEDS: D5W 1000 ml BAG 1,000 ML IVPB SCH (02:33)
[2020-04-28] MEDS: Chlorhexidine MOUTHWASH 0.12% 15 ML UDC TOPICAL SCH ×6 (02:40→23:52)
[2020-04-28] MEDS: hydrALAZINE 20 mg/ml 1 ML Vial IV IV SLOW PU PRN (04:16)
[2020-04-28 05:31] LABS: ABS Basophils 0.1 10^3/ul (0-0.2); ABS Eosinophils 0.7 10^3/ul (0-0.6); ABS Lymphocytes 1.1 10^3/ul (1.0-4.8); ABS Monocytes 1.1 10^3/ul (0-0.8); ABS Neutrophils 6.2 10^3/ul (1.5-7.7); Eosinophil % 7.7 %; Hematocrit 27 % (42-52); Hemoglobin 9.1 g/dL (14.0-18.0); Lymphocyte % 12.5 %; Mean Corpuscular HGB Conc 34 g/dL (31-36); Mean Corpuscular Hemoglobin 30 pg (27-31); Mean Corpuscular Volume 87 fL (80-94); Mean Platelet Volume 8.4 fL (7.4-10.4); Nucleated Red Blood Cells % 0.1; Platelet Count 215 10^3/uL (150-450); Red Blood Count 3.04 10^6 /uL (4.18-5.48); Red Cell Distribution Width 14 % (10-15); White Blood Count 9.2 10^3/uL (3.5-10.8)
[2020-04-28 05:50] LABS: BUN/Creatinine Ratio 33.3 (8-20); Calcium 7.9 mg/dL (8.6-10.3); EGFR Non-African American 56.2 (>60); Potassium 4.3 mmol/L (3.5-5.0)
[2020-04-28] MEDS: ZOSYN 3.375 GM Q8H per EXTENDED INFUSION IV SCH ×3 (06:11→23:53)
[2020-04-28] MEDS ORDERED: Lubiprostone 24 MCG CAP (NF) PO SCH (09:00)
[2020-04-28] MEDS: Famotidine IV 10 MG/ML 2 ml VIAL (20 mg) IV SLOW PU SCH ×2 (09:33→20:32)
[2020-04-28] MEDS: Heparin 5000 UNITS/ML 1 mL VIAL SUBCUT SCH ×2 (09:33→20:32)
[2020-04-28] MEDS: Polyethylene Glycol 3350 17 GM PACKET PO SCH (09:34)
[2020-04-28] MEDS: Insulin GLARGINE 100 un/ml 10 ml VIAL SUBCUT SCH (09:34)
[2020-04-28] MEDS: Nystatin TOP POWDER 15 GM BTL TOPICAL SCH ×3 (09:35→20:32)
[2020-04-28] MEDS: Methadone ORALSYR CONC LIQ 10 MG/ML PO SCH ×4 (09:35→20:32)
[2020-04-28] MEDS ORDERED: Vancomycin Trough Check NOTE FOLLOW UP ONE (11:30)
[2020-04-28] MEDS ORDERED: Alteplase (CATHFLO) 2 MG VIAL IV ONE (14:23)
[2020-04-28] MEDS ORDERED: Furosemide 40 mg/4 ml IV VIAL IV ONE (15:30)
[2020-04-28] MEDS ORDERED: Metoprolol Tartrate 5 mg VIAL 5 ml VIAL (1 mg/ml) IV SCH (17:00)
[2020-04-28] MEDS: Metoprolol Tartrate 5 mg VIAL 5 ml VIAL (1 mg/ml) IV SCH ×2 (17:45→23:53)
[2020-04-28] MEDS: Senna TAB 8.6 mg TAB PO SCH (20:32)
[2020-04-28] MEDS ORDERED: Scopolamine PATCH Remove NOTE PATCH OFF SCH (22:59)
[2020-04-28] MEDS: Vancomycin 750 MG in NS 0.9% 250 ML IVPB SCH (23:53)
[2020-04-29] MEDS: Albuterol/Ipratropium NEB.SOL (2.5/0.5 MG) 3 ML NEB.SOLN INH PRN ×2 (00:56→07:24)
[2020-04-29] MEDS: Acetylcysteine INHALATION SOL 200 MG/ML NEB.SOLN 10 ML INH SCH ×2 (00:57→07:25)
[2020-04-29] MEDS: Chlorhexidine MOUTHWASH 0.12% 15 ML UDC TOPICAL SCH ×6 (02:40→23:32)
[2020-04-29] MEDS: hydrALAZINE 20 mg/ml 1 ML Vial IV IV SLOW PU PRN ×2 (03:14→03:34)
[2020-04-29] MEDS: Metoprolol Tartrate 5 mg VIAL 5 ml VIAL (1 mg/ml) IV SCH ×4 (05:10→23:35)
[2020-04-29 06:29] LABS: BUN/Creatinine Ratio 38.5 (8-20); Calcium 7.9 mg/dL (8.6-10.3); EGFR Non-African American 71.9 (>60); Potassium 4.1 mmol/L (3.5-5.0)
[2020-04-29] MEDS: ZOSYN 3.375 GM Q8H per EXTENDED INFUSION IV SCH ×3 (06:32→23:35)
[2020-04-29] MEDS: fentaNYL 100 mcg/2 ml 50 MCG/ML VIAL IV SLOW PU PRN ×7 (07:20→22:17)
[2020-04-29] MEDS ORDERED: Albuterol/Ipratropium NEB.SOL (2.5/0.5 MG) 3 ML NEB.SOLN INH PRN (08:41)
[2020-04-29] MEDS: Insulin GLARGINE 100 un/ml 10 ml VIAL SUBCUT SCH (09:31)
[2020-04-29] MEDS: Famotidine IV 10 MG/ML 2 ml VIAL (20 mg) IV SLOW PU SCH ×2 (09:31→22:04)
[2020-04-29] MEDS: Heparin 5000 UNITS/ML 1 mL VIAL SUBCUT SCH ×2 (09:31→22:04)
[2020-04-29] MEDS: Polyethylene Glycol 3350 17 GM PACKET PO SCH (09:32)
[2020-04-29] MEDS: Nystatin TOP POWDER 15 GM BTL TOPICAL SCH ×3 (09:32→22:05)
[2020-04-29] MEDS: Methadone ORALSYR CONC LIQ 10 MG/ML PO SCH ×4 (09:32→22:05)
[2020-04-29] MEDS: Vancomycin 750 MG in NS 0.9% 250 ML IVPB SCH (12:24)
[2020-04-29] MEDS: Acetylcysteine INH SOL (RT) 200 MG/ML 4 ML VIAL INH SCH ×4 (13:16→23:28)
[2020-04-29] MEDS ORDERED: Propofol 10 MG/ML 20 ML BTL ONE (15:17)
[2020-04-29] MEDS: Albuterol/Ipratropium NEB.SOL (2.5/0.5 MG) 3 ML NEB.SOLN INH SCH ×3 (15:55→23:29)
[2020-04-29] MEDS ORDERED: Furosemide 40 mg/4 ml IV VIAL IV ONE (16:00)
[2020-04-29] MEDS: Senna TAB 8.6 mg TAB PO SCH (22:05)
[2020-04-30] MEDS: Albuterol/Ipratropium NEB.SOL (2.5/0.5 MG) 3 ML NEB.SOLN INH SCH ×5 (03:32→19:01)
[2020-04-30] MEDS: Acetylcysteine INH SOL (RT) 200 MG/ML 4 ML VIAL INH SCH ×6 (03:33→23:04)
[2020-04-30] MEDS: fentaNYL INFUSION 50 MCG/ML 2,500 MCG/50 ML BAG IV SCH ×2 (04:17→18:51)
[2020-04-30] MEDS: Metoprolol Tartrate 5 mg VIAL 5 ml VIAL (1 mg/ml) IV SCH ×4 (05:35→23:33)
[2020-04-30] MEDS: Chlorhexidine MOUTHWASH 0.12% 15 ML UDC TOPICAL SCH ×6 (05:35→23:28)
[2020-04-30 05:41] LABS: Hematocrit 25 % (42-52); Hemoglobin 8.2 g/dL (14.0-18.0); Mean Corpuscular HGB Conc 33 g/dL (31-36); Mean Corpuscular Hemoglobin 29 pg (27-31); Mean Corpuscular Volume 87 fL (80-94); Mean Platelet Volume 7.9 fL (7.4-10.4); Platelet Count 246 10^3/uL (150-450); Red Cell Distribution Width 14 % (10-15); White Blood Count 10.3 10^3/uL (3.5-10.8)
[2020-04-30 05:58] LABS: Albumin 2.4 g/dL (3.2-5.2); BUN/Creatinine Ratio 34.4 (8-20); Calcium 7.9 mg/dL (8.6-10.3); EGFR African American 104.5 (>60); EGFR Non-African American 86.4 (>60); Globulin 2.4 g/dL (2-4); Potassium 3.9 mmol/L (3.5-5.0); Total Bilirubin 0.3 mg/dL (0.2-1.0); Total Protein 4.8 g/dL (6.4-8.9)
[2020-04-30] MEDS: ZOSYN 3.375 GM Q8H per EXTENDED INFUSION IV SCH ×3 (07:45→23:33)
[2020-04-30] MEDS: Famotidine IV 10 MG/ML 2 ml VIAL (20 mg) IV SLOW PU SCH ×2 (09:37→19:48)
[2020-04-30] MEDS: Heparin 5000 UNITS/ML 1 mL VIAL SUBCUT SCH (09:44)
[2020-04-30] MEDS: Insulin GLARGINE 100 un/ml 10 ml VIAL SUBCUT SCH (09:47)
[2020-04-30] MEDS: Methadone ORALSYR CONC LIQ 10 MG/ML PO SCH ×4 (09:48→19:49)
[2020-04-30] MEDS: Polyethylene Glycol 3350 17 GM PACKET PO SCH (09:48)
[2020-04-30] MEDS ORDERED: Furosemide 40 mg/4 ml IV VIAL IV SLOW PU ONE (10:00)
[2020-04-30] MEDS: Nystatin TOP POWDER 15 GM BTL TOPICAL SCH ×3 (10:06→20:15)
[2020-04-30] MEDS ORDERED: Albumin Human 25% 25 GM/100 ML BTL IV ONE (10:15)
[2020-04-30] MEDS ORDERED: Vancomycin Trough Check NOTE FOLLOW UP ONE (11:00)
[2020-04-30] MEDS: fentaNYL 100 mcg/2 ml 50 MCG/ML VIAL IV SLOW PU PRN ×3 (11:36→18:50)
[2020-04-30] MEDS ORDERED: Midazolam 2 mg/2 ml VIAL 1 mg/ml 2 ml VIAL (2 mg) IV SLOW PU ONE (16:06)
[2020-04-30] MEDS ORDERED: Midazolam 5 mg/5 ml VIAL 1 mg/ml 5 ml VIAL (5 mg) ONE (16:09)
[2020-04-30] MEDS ORDERED: Enoxaparin 40 MG/0.4 ML SYR SUBCUT SCH (18:00)
[2020-04-30] MEDS: Senna TAB 8.6 mg TAB PO SCH (19:49)
[2020-04-30] MEDS ORDERED: Heparin 5000 UNITS/ML 1 mL VIAL SUBCUT ONE (21:00)
[2020-04-30] MEDS ORDERED: Albuterol/Ipratropium NEB.SOL (2.5/0.5 MG) 3 ML NEB.SOLN ONE (22:59)
[2020-04-30] MEDS ORDERED: Acetylcysteine INHALATION SOL 200 MG/ML NEB.SOLN 10 ML ONE (22:59)
[2020-05-01] MEDS ORDERED: NS 0.9% 1000 ml BAG 1,000 ML IV SCH
[2020-05-01] MEDS: Chlorhexidine MOUTHWASH 0.12% 15 ML UDC TOPICAL SCH ×4 (01:57→14:23)
[2020-05-01] MEDS: fentaNYL 100 mcg/2 ml 50 MCG/ML VIAL IV SLOW PU PRN (02:15)
[2020-05-01] MEDS: Albuterol/Ipratropium NEB.SOL (2.5/0.5 MG) 3 ML NEB.SOLN INH SCH ×7 (02:53→23:12)
[2020-05-01] MEDS: Acetylcysteine INH SOL (RT) 200 MG/ML 4 ML VIAL INH SCH ×3 (03:00→12:02)
[2020-05-01] MEDS: Metoprolol Tartrate 5 mg VIAL 5 ml VIAL (1 mg/ml) IV SCH ×4 (05:25→17:13)
[2020-05-01 05:31] LABS: ABS Eosinophils 0.7 10^3/ul (0-0.6); ABS Lymphocytes 0.9 10^3/ul (1.0-4.8); ABS Monocytes 1.1 10^3/ul (0-0.8); ABS Neutrophils 8.6 10^3/ul (1.5-7.7); Eosinophil % 5.8 %; Hematocrit 26 % (42-52); Hemoglobin 8.8 g/dL (14.0-18.0); Lymphocyte % 8.2 %; Mean Corpuscular HGB Conc 33 g/dL (31-36); Mean Corpuscular Hemoglobin 29 pg (27-31); Mean Corpuscular Volume 87 fL (80-94); Mean Platelet Volume 7.8 fL (7.4-10.4); Platelet Count 286 10^3/uL (150-450); Red Cell Distribution Width 14 % (10-15); White Blood Count 11.4 10^3/uL (3.5-10.8)
[2020-05-01 05:42] LABS: Activated Partial Thrombo Time 32.9 seconds (26.0-38.0); INR 1.15 (0.82-1.09)
[2020-05-01 05:55] LABS: Albumin 2.8 g/dL (3.2-5.2); BUN/Creatinine Ratio 27.3 (8-20); Calcium 8.3 mg/dL (8.6-10.3); EGFR African American 111.4 (>60); Globulin 2.7 g/dL (2-4); Magnesium 2.2 mg/dL (1.9-2.7); Phosphorus 2.8 mg/dL (2.5-5.0); Total Bilirubin 0.4 mg/dL (0.2-1.0); Total Protein 5.5 g/dL (6.4-8.9)
[2020-05-01] MEDS: ZOSYN 3.375 GM Q8H per EXTENDED INFUSION IV SCH (08:09)
[2020-05-01] MEDS: Famotidine IV 10 MG/ML 2 ml VIAL (20 mg) IV SLOW PU SCH (08:16)
[2020-05-01] MEDS: Methadone ORALSYR CONC LIQ 10 MG/ML PO SCH ×4 (08:16→21:25)
[2020-05-01] MEDS ORDERED: Furosemide 40 mg/4 ml IV VIAL ONE (08:41)
[2020-05-01] MEDS ORDERED: Furosemide 40 mg/4 ml IV VIAL IV ONE (08:45)
[2020-05-01] MEDS: Nystatin TOP POWDER 15 GM BTL TOPICAL SCH ×2 (09:00→14:25)
[2020-05-01] MEDS: Polyethylene Glycol 3350 17 GM PACKET PO SCH (10:16)
[2020-05-01] MEDS: Insulin GLARGINE 100 un/ml 10 ml VIAL SUBCUT SCH (10:35)
[2020-05-01] MEDS: Heparin 5000 UNITS/ML 1 mL VIAL SUBCUT SCH (21:23)
[2020-05-01] MEDS: Senna TAB 8.6 mg TAB PO SCH (21:24)
[2020-05-01] MEDS ORDERED: Albuterol/Ipratropium NEB.SOL (2.5/0.5 MG) 3 ML NEB.SOLN ONE (23:09)
[2020-05-02] MEDS: Nystatin TOP POWDER 15 GM BTL TOPICAL SCH ×4 (00:03→20:14)
[2020-05-02] MEDS: Metoprolol Tartrate 5 mg VIAL 5 ml VIAL (1 mg/ml) IV SCH ×2 (00:03→06:25)
[2020-05-02] MEDS: Albuterol/Ipratropium NEB.SOL (2.5/0.5 MG) 3 ML NEB.SOLN INH SCH ×6 (02:50→22:46)
[2020-05-02 06:48] LABS: ABS Basophils 0.1 10^3/ul (0-0.2); ABS Eosinophils 0.6 10^3/ul (0-0.6); ABS Lymphocytes 1.1 10^3/ul (1.0-4.8); ABS Monocytes 1.2 10^3/ul (0-0.8); ABS Neutrophils 10.1 10^3/ul (1.5-7.7); Eosinophil % 4.8 %; Hematocrit 28 % (42-52); Hemoglobin 9.4 g/dL (14.0-18.0); Lymphocyte % 8.6 %; Mean Corpuscular HGB Conc 34 g/dL (31-36); Mean Corpuscular Hemoglobin 30 pg (27-31); Mean Corpuscular Volume 88 fL (80-94); Mean Platelet Volume 7.6 fL (7.4-10.4); Nucleated Red Blood Cells % 0.1; Platelet Count 341 10^3/uL (150-450); Red Blood Count 3.15 10^6 /uL (4.18-5.48); Red Cell Distribution Width 14 % (10-15); White Blood Count 13.2 10^3/uL (3.5-10.8)
[2020-05-02 07:01] LABS: Albumin 2.9 g/dL (3.2-5.2); BUN/Creatinine Ratio 25.3 (8-20); Calcium 8.6 mg/dL (8.6-10.3); EGFR African American 112.9 (>60); EGFR Non-African American 93.3 (>60); Magnesium 2.1 mg/dL (1.9-2.7); Phosphorus 2.8 mg/dL (2.5-5.0); Potassium 3.9 mmol/L (3.5-5.0); Total Bilirubin 0.4 mg/dL (0.2-1.0); Total Protein 5.9 g/dL (6.4-8.9)
[2020-05-02] MEDS: Heparin 5000 UNITS/ML 1 mL VIAL SUBCUT SCH ×2 (09:00→20:14)
[2020-05-02] MEDS: Insulin GLARGINE 100 un/ml 10 ml VIAL SUBCUT SCH (11:28)
[2020-05-02] MEDS ORDERED: Methylnaltrexone SQ (NF) 12 MG/0.6 ML VIAL SUBCUT ONE (13:23)
[2020-05-02] MEDS: Polyethylene Glycol 3350 17 GM PACKET PO SCH (14:49)
[2020-05-02] MEDS: Senna TAB 8.6 mg TAB PO SCH (20:15)
[2020-05-02 22:34] LABS: Urine Appearance Cloudy; Urine Bilirubin Negative (Negative); Urine Blood 1+ (Negative); Urine Color Yellow; Urine Glucose Negative (Negative); Urine Ketones Trace (Negative); Urine Nitrite Negative (Negative); Urine Protein 2+(100 mg/dL) (Negative); Urine Specific Gravity 1.014 (1.010-1.030); Urine Urobilinogen Negative (Negative)
[2020-05-02 22:41] LABS: Urine Bacteria 1+ (Absent); Urine Granular Casts Present (Absent); Urine Red Blood Cell 3+(>10/hpf) (Absent); Urine Squamous Epithelial Cell Present (Absent); Urine White Blood Cell Trace(0-5/hpf) (Absent)
[2020-05-02] MEDS ORDERED: Albuterol/Ipratropium NEB.SOL (2.5/0.5 MG) 3 ML NEB.SOLN ONE (22:44)
[2020-05-03] MEDS: Albuterol/Ipratropium NEB.SOL (2.5/0.5 MG) 3 ML NEB.SOLN INH SCH ×6 (03:08→23:16)
[2020-05-03] MEDS ORDERED: hydrALAZINE 20 mg/ml 1 ML Vial IV IV SLOW PU ONE (03:34)
[2020-05-03 05:59] LABS: ABS Basophils 0.1 10^3/ul (0-0.2); ABS Eosinophils 0.5 10^3/ul (0-0.6); ABS Lymphocytes 1.1 10^3/ul (1.0-4.8); Eosinophil % 4.3 %; Hematocrit 27 % (42-52); Hemoglobin 8.9 g/dL (14.0-18.0); Lymphocyte % 8.7 %; Mean Corpuscular HGB Conc 33 g/dL (31-36); Mean Corpuscular Hemoglobin 29 pg (27-31); Mean Corpuscular Volume 88 fL (80-94); Mean Platelet Volume 7.5 fL (7.4-10.4); Platelet Count 343 10^3/uL (150-450); Red Cell Distribution Width 14 % (10-15); White Blood Count 12.7 10^3/uL (3.5-10.8)
[2020-05-03 06:17] LABS: Albumin 2.7 g/dL (3.2-5.2); BUN/Creatinine Ratio 27.4 (8-20); Calcium 8.1 mg/dL (8.6-10.3); EGFR African American 138.2 (>60); EGFR Non-African American 114.2 (>60); Globulin 2.8 g/dL (2-4); Potassium 3.7 mmol/L (3.5-5.0); Total Bilirubin 0.4 mg/dL (0.2-1.0); Total Protein 5.5 g/dL (6.4-8.9)
[2020-05-03] MEDS: Polyethylene Glycol 3350 17 GM PACKET PO SCH (08:28)
[2020-05-03] MEDS ORDERED: Furosemide 40 mg/4 ml IV VIAL IV SLOW PU ONE (08:33)
[2020-05-03] MEDS ORDERED: Buffered Lidocaine 1% SYRIN 1 ml INTRADERM ONE (08:33)
[2020-05-03] MEDS: Insulin GLARGINE 100 un/ml 10 ml VIAL SUBCUT SCH (08:48)
[2020-05-03] MEDS: Heparin 5000 UNITS/ML 1 mL VIAL SUBCUT SCH ×2 (08:50→20:28)
[2020-05-03] MEDS ORDERED: Albuterol/Ipratropium NEB.SOL (2.5/0.5 MG) 3 ML NEB.SOLN INH SCH (09:00)
[2020-05-03] MEDS: Nystatin TOP POWDER 15 GM BTL TOPICAL SCH ×3 (09:45→20:32)
[2020-05-03] MEDS: CMC:Lubiprostone 24 MCG CAP (NF) PO SCH ×2 (13:25→20:27)
[2020-05-03] MEDS: ZOSYN 3.375 GM Q8H per EXTENDED INFUSION IV SCH (19:33)
[2020-05-03] MEDS: Senna TAB 8.6 mg TAB PO SCH (20:27)
[2020-05-03] MEDS: Ondansetron 4 mg VIAL 2 MG/ML 2 ml VIAL IV PRN (21:52)
[2020-05-04] MEDS: Albuterol/Ipratropium NEB.SOL (2.5/0.5 MG) 3 ML NEB.SOLN INH SCH ×6 (02:52→23:02)
[2020-05-04 06:17] LABS: ABS Basophils 0.1 10^3/ul (0-0.2); ABS Eosinophils 0.5 10^3/ul (0-0.6); ABS Lymphocytes 1.3 10^3/ul (1.0-4.8); ABS Neutrophils 9.1 10^3/ul (1.5-7.7); Eosinophil % 4.1 %; Hematocrit 25 % (42-52); Hemoglobin 8.5 g/dL (14.0-18.0); Lymphocyte % 10.8 %; Mean Corpuscular HGB Conc 34 g/dL (31-36); Mean Corpuscular Hemoglobin 29 pg (27-31); Mean Corpuscular Volume 87 fL (80-94); Mean Platelet Volume 7.8 fL (7.4-10.4); Platelet Count 354 10^3/uL (150-450); Red Blood Count 2.91 10^6 /uL (4.18-5.48); Red Cell Distribution Width 14 % (10-15); White Blood Count 11.9 10^3/uL (3.5-10.8)
[2020-05-04 06:27] LABS: Albumin 2.6 g/dL (3.2-5.2); Calcium 7.8 mg/dL (8.6-10.3); Magnesium 2.1 mg/dL (1.9-2.7); Total Bilirubin 0.4 mg/dL (0.2-1.0)
[2020-05-04 06:33] LABS: Albumin/Globulin Ratio 0.9 (1-3); BUN/Creatinine Ratio 23.2 (8-20); EGFR African American 120.8 (>60); EGFR Non-African American 99.9 (>60); Globulin 2.9 g/dL (2-4); Total Protein 5.5 g/dL (6.4-8.9)
[2020-05-04] MEDS: Insulin GLARGINE 100 un/ml 10 ml VIAL SUBCUT SCH (08:54)
[2020-05-04] MEDS: Heparin 5000 UNITS/ML 1 mL VIAL SUBCUT SCH ×2 (08:55→20:29)
[2020-05-04] MEDS: Nystatin TOP POWDER 15 GM BTL TOPICAL SCH ×3 (08:56→20:34)
[2020-05-04] MEDS: CMC:Lubiprostone 24 MCG CAP (NF) PO SCH ×2 (08:56→20:33)
[2020-05-04] MEDS: Polyethylene Glycol 3350 17 GM PACKET PO SCH (08:57)
[2020-05-04] MEDS: Acetylcysteine 600mgCAP(RENAL) PO SCH ×2 (11:15→20:32)
[2020-05-04] MEDS ORDERED: Iodixanol (CONTRAST) 320 MG/ML 100 ML SDV IV ONE (12:07)
[2020-05-04] MEDS: Ondansetron 4 mg VIAL 2 MG/ML 2 ml VIAL IV PRN (14:50)
[2020-05-04] MEDS ORDERED: Furosemide 20 mg/2 ml IV VIAL IV ONE (19:59)
[2020-05-04] MEDS: Senna TAB 8.6 mg TAB PO SCH (20:31)
[2020-05-05] MEDS: Albuterol/Ipratropium NEB.SOL (2.5/0.5 MG) 3 ML NEB.SOLN INH SCH ×4 (03:35→19:56)
[2020-05-05 05:28] LABS: ABS Basophils 0.1 10^3/ul (0-0.2); ABS Eosinophils 0.5 10^3/ul (0-0.6); ABS Lymphocytes 1.2 10^3/ul (1.0-4.8); ABS Neutrophils 7.5 10^3/ul (1.5-7.7); Hematocrit 25 % (42-52); Hemoglobin 8.1 g/dL (14.0-18.0); Mean Corpuscular HGB Conc 33 g/dL (31-36); Mean Corpuscular Hemoglobin 29 pg (27-31); Mean Corpuscular Volume 88 fL (80-94); Mean Platelet Volume 7.6 fL (7.4-10.4); Nucleated Red Blood Cells % 0.1; Platelet Count 352 10^3/uL (150-450); Red Blood Count 2.83 10^6 /uL (4.18-5.48); Red Cell Distribution Width 14 % (10-15); White Blood Count 10.3 10^3/uL (3.5-10.8)
[2020-05-05 05:42] LABS: BUN/Creatinine Ratio 23.9 (8-20); Calcium 7.8 mg/dL (8.6-10.3); EGFR African American 105.8 (>60); EGFR Non-African American 87.4 (>60); Potassium 4.2 mmol/L (3.5-5.0)
[2020-05-05] MEDS: Polyethylene Glycol 3350 17 GM PACKET PO SCH (08:52)
[2020-05-05] MEDS: Heparin 5000 UNITS/ML 1 mL VIAL SUBCUT SCH (08:53)
[2020-05-05] MEDS: Acetylcysteine 600mgCAP(RENAL) PO SCH ×2 (08:58→20:30)
[2020-05-05] MEDS: CMC:Lubiprostone 24 MCG CAP (NF) PO SCH ×2 (08:58→20:31)
[2020-05-05] MEDS: Nystatin TOP POWDER 15 GM BTL TOPICAL SCH ×3 (08:59→20:37)
[2020-05-05] MEDS: Insulin GLARGINE 100 un/ml 10 ml VIAL SUBCUT SCH (09:06)
[2020-05-05] MEDS ORDERED: Perflutren Lipid Microsphere 3 ML VIAL ONE (13:47)
[2020-05-05] MEDS: Enoxaparin 100 MG/ML SYR SUBCUT SCH (15:48)
[2020-05-05] MEDS: Ondansetron 4 mg VIAL 2 MG/ML 2 ml VIAL IV PRN (19:29)
[2020-05-05] MEDS: Senna TAB 8.6 mg TAB PO SCH (20:30)
[2020-05-06] MEDS: Albuterol/Ipratropium NEB.SOL (2.5/0.5 MG) 3 ML NEB.SOLN INH SCH ×4 (00:46→19:37)
[2020-05-06] MEDS: Enoxaparin 100 MG/ML SYR SUBCUT SCH ×2 (03:54→14:45)
[2020-05-06] MEDS: Ondansetron 4 mg VIAL 2 MG/ML 2 ml VIAL IV PRN ×2 (07:35→19:33)
[2020-05-06] MEDS: Insulin GLARGINE 100 un/ml 10 ml VIAL SUBCUT SCH (08:31)
[2020-05-06] MEDS: Polyethylene Glycol 3350 17 GM PACKET PO SCH (08:48)
[2020-05-06] MEDS: CMC:Lubiprostone 24 MCG CAP (NF) PO SCH ×2 (08:52→20:49)
[2020-05-06] MEDS: Nystatin TOP POWDER 15 GM BTL TOPICAL SCH ×3 (09:06→20:51)
[2020-05-06] MEDS: Senna TAB 8.6 mg TAB PO SCH (20:47)
[2020-05-07] MEDS: Albuterol/Ipratropium NEB.SOL (2.5/0.5 MG) 3 ML NEB.SOLN INH SCH ×2 (01:47→07:39)
[2020-05-07] MEDS: Enoxaparin 100 MG/ML SYR SUBCUT SCH ×2 (03:12→13:55)
[2020-05-07] MEDS ORDERED: Albuterol/Ipratropium NEB.SOL (2.5/0.5 MG) 3 ML NEB.SOLN INH PRN (07:10)
[2020-05-07] MEDS: Polyethylene Glycol 3350 17 GM PACKET PO SCH (08:29)
[2020-05-07] MEDS: CMC:Lubiprostone 24 MCG CAP (NF) PO SCH ×2 (08:30→20:08)
[2020-05-07] MEDS: Insulin GLARGINE 100 un/ml 10 ml VIAL SUBCUT SCH (08:36)
[2020-05-07] MEDS: Ondansetron 4 mg VIAL 2 MG/ML 2 ml VIAL IV PRN (11:43)
[2020-05-07] MEDS: Nystatin TOP POWDER 15 GM BTL TOPICAL SCH ×3 (12:31→20:10)
[2020-05-07] MEDS ORDERED: Pantoprazole 80 mg in NS BAG 80 MG/250 ML BAG IV ONE (13:30)
[2020-05-07 15:47] LABS: Hematocrit 22 % (42-52); Hemoglobin 7.4 g/dL (14.0-18.0); Mean Corpuscular HGB Conc 33 g/dL (31-36); Mean Corpuscular Hemoglobin 30 pg (27-31); Mean Corpuscular Volume 90 fL (80-94); Mean Platelet Volume 8.2 fL (7.4-10.4); Platelet Count 401 10^3/uL (150-450); Red Blood Count 2.49 10^6 /uL (4.18-5.48); Red Cell Distribution Width 15 % (10-15); White Blood Count 9.3 10^3/uL (3.5-10.8)
[2020-05-07] MEDS: Senna TAB 8.6 mg TAB PO SCH (20:08)
[2020-05-08 05:01] LABS: Hematocrit 21 % (42-52); Hemoglobin 6.6 g/dL (14.0-18.0); Mean Corpuscular HGB Conc 32 g/dL (31-36); Mean Corpuscular Hemoglobin 29 pg (27-31); Mean Corpuscular Volume 89 fL (80-94); Mean Platelet Volume 7.6 fL (7.4-10.4); Platelet Count 416 10^3/uL (150-450); Red Blood Count 2.29 10^6 /uL (4.18-5.48); Red Cell Distribution Width 15 % (10-15)
[2020-05-08 05:13] LABS: Calcium 7.5 mg/dL (8.6-10.3); Potassium 4.6 mmol/L (3.5-5.0)
[2020-05-08 05:19] LABS: EGFR African American 96.1 (>60); EGFR Non-African American 79.4 (>60)
[2020-05-08] MEDS: CMC:Lubiprostone 24 MCG CAP (NF) PO SCH ×2 (08:36→21:05)
[2020-05-08] MEDS: Polyethylene Glycol 3350 17 GM PACKET PO SCH (08:40)
[2020-05-08] MEDS ORDERED: Influenza VAC *QUAD* 2020-21* 0.5 ML SYRINGE IM ONE (09:00)
[2020-05-08] MEDS: Pantoprazole VIAL 40 MG VIAL IV SCH ×2 (09:52→20:58)
[2020-05-08] MEDS: Insulin GLARGINE 100 un/ml 10 ml VIAL SUBCUT SCH (10:05)
[2020-05-08] MEDS: Morphine 2 MG/ML SYRINGE IV PRN ×2 (10:14→22:07)
[2020-05-08 14:50] LABS: Hematocrit 22 % (42-52); Hemoglobin 7.1 g/dL (14.0-18.0); Mean Corpuscular HGB Conc 33 g/dL (31-36); Mean Corpuscular Hemoglobin 29 pg (27-31); Mean Corpuscular Volume 88 fL (80-94); Mean Platelet Volume 8.2 fL (7.4-10.4); Platelet Count 399 10^3/uL (150-450); Red Blood Count 2.46 10^6 /uL (4.18-5.48); Red Cell Distribution Width 15 % (10-15); White Blood Count 7.8 10^3/uL (3.5-10.8)
[2020-05-08] MEDS: Nystatin TOP POWDER 15 GM BTL TOPICAL SCH ×3 (15:01→22:04)
[2020-05-08] MEDS: Ondansetron 4 mg VIAL 2 MG/ML 2 ml VIAL IV PRN (21:05)
[2020-05-08] MEDS: Senna TAB 8.6 mg TAB PO SCH (21:09)
[2020-05-09 05:31] LABS: Hematocrit 20 % (42-52); Hemoglobin 6.8 g/dL (14.0-18.0); Mean Corpuscular HGB Conc 34 g/dL (31-36); Mean Corpuscular Hemoglobin 30 pg (27-31); Mean Corpuscular Volume 88 fL (80-94); Mean Platelet Volume 8.3 fL (7.4-10.4); Platelet Count 404 10^3/uL (150-450); Red Blood Count 2.29 10^6 /uL (4.18-5.48); Red Cell Distribution Width 15 % (10-15); White Blood Count 7.9 10^3/uL (3.5-10.8)
[2020-05-09 05:42] LABS: BUN/Creatinine Ratio 35.2 (8-20); Calcium 7.5 mg/dL (8.6-10.3); EGFR African American 107.1 (>60); EGFR Non-African American 88.6 (>60); Potassium 4.9 mmol/L (3.5-5.0)
[2020-05-09] MEDS: Pantoprazole VIAL 40 MG VIAL IV SCH ×2 (08:25→20:41)
[2020-05-09] MEDS: Senna TAB 8.6 mg TAB PO SCH ×2 (08:26→20:39)
[2020-05-09] MEDS: Polyethylene Glycol 3350 17 GM PACKET PO SCH (08:27)
[2020-05-09] MEDS: Ondansetron 4 mg VIAL 2 MG/ML 2 ml VIAL IV PRN ×2 (08:39→21:39)
[2020-05-09] MEDS: Insulin GLARGINE 100 un/ml 10 ml VIAL SUBCUT SCH (08:41)
[2020-05-09] MEDS: Nystatin TOP POWDER 15 GM BTL TOPICAL SCH ×3 (08:43→20:40)
[2020-05-09] MEDS: CMC:Lubiprostone 24 MCG CAP (NF) PO SCH ×2 (08:47→20:40)
[2020-05-09] MEDS ORDERED: Influenza VAC *QUAD* 2020-21* 0.5 ML SYRINGE IM ONE (09:00)
[2020-05-09] MEDS ORDERED: fentaNYL 100 mcg/2 ml 50 MCG/ML VIAL ONE (13:59)
[2020-05-09] MEDS ORDERED: Midazolam 10 mg/10 ml VIAL 1 mg/ml 10 ml VIAL (10 mg) ONE (14:00)
[2020-05-09 17:12] LABS: Hematocrit 23 % (42-52); Hemoglobin 7.7 g/dL (14.0-18.0); Mean Corpuscular HGB Conc 34 g/dL (31-36); Mean Corpuscular Hemoglobin 30 pg (27-31); Mean Corpuscular Volume 89 fL (80-94); Mean Platelet Volume 8.1 fL (7.4-10.4); Platelet Count 375 10^3/uL (150-450); Red Blood Count 2.57 10^6 /uL (4.18-5.48); Red Cell Distribution Width 15 % (10-15)
[2020-05-09] MEDS: Glycerin ADULT 2.4 gm SUPP PR SCH (18:33)
[2020-05-10 06:47] LABS: Hematocrit 23 % (42-52); Hemoglobin 7.6 g/dL (14.0-18.0); Mean Corpuscular HGB Conc 34 g/dL (31-36); Mean Corpuscular Hemoglobin 30 pg (27-31); Mean Corpuscular Volume 89 fL (80-94); Mean Platelet Volume 8.4 fL (7.4-10.4); Platelet Count 397 10^3/uL (150-450); Red Blood Count 2.53 10^6 /uL (4.18-5.48); Red Cell Distribution Width 15 % (10-15); White Blood Count 7.7 10^3/uL (3.5-10.8)
[2020-05-10 07:05] LABS: Calcium 7.6 mg/dL (8.6-10.3); Potassium 4.6 mmol/L (3.5-5.0)
[2020-05-10 07:11] LABS: BUN/Creatinine Ratio 30.5 (8-20); EGFR Non-African American 84.3 (>60)
[2020-05-10] MEDS: Ondansetron 4 mg VIAL 2 MG/ML 2 ml VIAL IV PRN ×2 (07:54→21:05)
[2020-05-10] MEDS: Glycerin ADULT 2.4 gm SUPP PR SCH (08:16)
[2020-05-10] MEDS: Insulin GLARGINE 100 un/ml 10 ml VIAL SUBCUT SCH (08:52)
[2020-05-10] MEDS: Pantoprazole VIAL 40 MG VIAL IV SCH ×2 (08:52→21:05)
[2020-05-10] MEDS: Nystatin TOP POWDER 15 GM BTL TOPICAL SCH ×3 (08:54→21:06)
[2020-05-10] MEDS ORDERED: Influenza VAC *QUAD* 2020-21* 0.5 ML SYRINGE IM ONE (09:00)
[2020-05-10] MEDS ORDERED: Ondansetron 4 mg VIAL 2 MG/ML 2 ml VIAL IV ONE (10:30)
[2020-05-11 05:43] LABS: Hematocrit 21 % (42-52); Hemoglobin 7.1 g/dL (14.0-18.0); Mean Corpuscular HGB Conc 34 g/dL (31-36); Mean Corpuscular Hemoglobin 30 pg (27-31); Mean Corpuscular Volume 89 fL (80-94); Platelet Count 365 10^3/uL (150-450); Red Blood Count 2.36 10^6 /uL (4.18-5.48); Red Cell Distribution Width 15 % (10-15)
[2020-05-11 05:54] LABS: BUN/Creatinine Ratio 27.8 (8-20); Calcium 7.5 mg/dL (8.6-10.3); EGFR African American 99.5 (>60); EGFR Non-African American 82.3 (>60); Potassium 4.7 mmol/L (3.5-5.0)
[2020-05-11] MEDS ORDERED: Venlafaxine 75 mg CAP (NF) PO SCH (09:00)
[2020-05-11] MEDS: Venlafaxine XR 75 mg PO SCH (09:13)
[2020-05-11] MEDS: Nystatin TOP POWDER 15 GM BTL TOPICAL SCH ×3 (09:14→21:06)
[2020-05-11] MEDS: Insulin GLARGINE 100 un/ml 10 ml VIAL SUBCUT SCH (09:14)
[2020-05-11] MEDS: Pantoprazole VIAL 40 MG VIAL IV SCH ×2 (09:14→21:01)
[2020-05-11] MEDS: Ondansetron 4 mg VIAL 2 MG/ML 2 ml VIAL IV PRN ×3 (11:02→21:01)
[2020-05-12 05:30] LABS: ABS Basophils 0.1 10^3/ul (0-0.2); ABS Eosinophils 0.4 10^3/ul (0-0.6); ABS Lymphocytes 1.4 10^3/ul (1.0-4.8); ABS Monocytes 0.9 10^3/ul (0-0.8); ABS Neutrophils 5.8 10^3/ul (1.5-7.7); Eosinophil % 5.1 %; Hematocrit 24 % (42-52); Hemoglobin 7.9 g/dL (14.0-18.0); Lymphocyte % 16.7 %; Mean Corpuscular HGB Conc 33 g/dL (31-36); Mean Corpuscular Hemoglobin 29 pg (27-31); Mean Corpuscular Volume 89 fL (80-94); Mean Platelet Volume 7.7 fL (7.4-10.4); Nucleated Red Blood Cells % 0.1; Platelet Count 428 10^3/uL (150-450); Red Blood Count 2.68 10^6 /uL (4.18-5.48); Red Cell Distribution Width 15 % (10-15); White Blood Count 8.6 10^3/uL (3.5-10.8)
[2020-05-12] MEDS: Venlafaxine XR 75 mg PO SCH (10:12)
[2020-05-12] MEDS: Insulin GLARGINE 100 un/ml 10 ml VIAL SUBCUT SCH ×2 (10:13→10:15)
[2020-05-12] MEDS: Nystatin TOP POWDER 15 GM BTL TOPICAL SCH ×3 (10:13→21:30)
[2020-05-12] MEDS: Pantoprazole VIAL 40 MG VIAL IV SCH ×2 (10:13→21:29)
[2020-05-13 06:42] LABS: ABS Basophils 0.1 10^3/ul (0-0.2); ABS Eosinophils 0.5 10^3/ul (0-0.6); ABS Lymphocytes 1.3 10^3/ul (1.0-4.8); ABS Monocytes 0.8 10^3/ul (0-0.8); ABS Neutrophils 5.2 10^3/ul (1.5-7.7); Eosinophil % 5.8 %; Hematocrit 23 % (42-52); Hemoglobin 7.5 g/dL (14.0-18.0); Lymphocyte % 16.4 %; Mean Corpuscular HGB Conc 32 g/dL (31-36); Mean Corpuscular Hemoglobin 30 pg (27-31); Mean Corpuscular Volume 94 fL (80-94); Mean Platelet Volume 7.8 fL (7.4-10.4); Nucleated Red Blood Cells % 0.1; Platelet Count 347 10^3/uL (150-450); Red Blood Count 2.46 10^6 /uL (4.18-5.48); Red Cell Distribution Width 16 % (10-15); White Blood Count 7.9 10^3/uL (3.5-10.8)
[2020-05-13] MEDS: Insulin GLARGINE 100 un/ml 10 ml VIAL SUBCUT SCH (09:15)
[2020-05-13] MEDS: Pantoprazole VIAL 40 MG VIAL IV SCH ×2 (09:15→22:33)
[2020-05-13] MEDS: Venlafaxine XR 75 mg PO SCH (09:16)
[2020-05-13] MEDS: Nystatin TOP POWDER 15 GM BTL TOPICAL SCH ×3 (09:17→23:43)
[2020-05-13] MEDS: Linaclotide 290 mcg CAP (NF) PO SCH (09:17)
[2020-05-13] MEDS: Ondansetron 4 mg VIAL 2 MG/ML 2 ml VIAL IV PRN (20:06)
[2020-05-14 05:40] LABS: ABS Basophils 0.1 10^3/ul (0-0.2); ABS Eosinophils 0.4 10^3/ul (0-0.6); ABS Lymphocytes 1.1 10^3/ul (1.0-4.8); ABS Monocytes 0.8 10^3/ul (0-0.8); ABS Neutrophils 4.7 10^3/ul (1.5-7.7); Eosinophil % 5.3 %; Hematocrit 23 % (42-52); Hemoglobin 7.6 g/dL (14.0-18.0); Lymphocyte % 15.9 %; Mean Corpuscular HGB Conc 33 g/dL (31-36); Mean Corpuscular Hemoglobin 29 pg (27-31); Mean Corpuscular Volume 89 fL (80-94); Mean Platelet Volume 8.1 fL (7.4-10.4); Platelet Count 380 10^3/uL (150-450); Red Blood Count 2.62 10^6 /uL (4.18-5.48); Red Cell Distribution Width 16 % (10-15); White Blood Count 7.2 10^3/uL (3.5-10.8)
[2020-05-14] MEDS: Pantoprazole VIAL 40 MG VIAL IV SCH ×2 (09:42→21:22)
[2020-05-14] MEDS: Insulin GLARGINE 100 un/ml 10 ml VIAL SUBCUT SCH (09:42)
[2020-05-14] MEDS: Nystatin TOP POWDER 15 GM BTL TOPICAL SCH ×3 (09:42→21:24)
[2020-05-14] MEDS: Venlafaxine XR 75 mg PO SCH (09:42)
[2020-05-14] MEDS: Linaclotide 290 mcg CAP (NF) PO SCH (09:43)
[2020-05-14] MEDS: Morphine 2 MG/ML SYRINGE IV PRN ×2 (11:44→22:41)
[2020-05-15 06:41] LABS: ABS Basophils 0.1 10^3/ul (0-0.2); ABS Eosinophils 0.4 10^3/ul (0-0.6); ABS Lymphocytes 1.4 10^3/ul (1.0-4.8); ABS Monocytes 0.8 10^3/ul (0-0.8); ABS Neutrophils 3.9 10^3/ul (1.5-7.7); Eosinophil % 5.6 %; Hematocrit 23 % (42-52); Hemoglobin 7.7 g/dL (14.0-18.0); Lymphocyte % 20.9 %; Mean Corpuscular HGB Conc 34 g/dL (31-36); Mean Corpuscular Hemoglobin 30 pg (27-31); Mean Corpuscular Volume 88 fL (80-94); Mean Platelet Volume 8.1 fL (7.4-10.4); Platelet Count 332 10^3/uL (150-450); Red Blood Count 2.56 10^6 /uL (4.18-5.48); Red Cell Distribution Width 15 % (10-15); White Blood Count 6.5 10^3/uL (3.5-10.8)
[2020-05-15 06:47] LABS: BUN/Creatinine Ratio 16.2 (8-20); Calcium 7.8 mg/dL (8.6-10.3); EGFR African American 97.2 (>60); EGFR Non-African American 80.3 (>60); Potassium 4.1 mmol/L (3.5-5.0)
[2020-05-15] MEDS: Venlafaxine XR 75 mg PO SCH (07:57)
[2020-05-15] MEDS: Pantoprazole VIAL 40 MG VIAL IV SCH (08:01)
[2020-05-15] MEDS: Ondansetron 4 mg VIAL 2 MG/ML 2 ml VIAL IV PRN ×2 (08:06→23:29)
[2020-05-15] MEDS: Nystatin TOP POWDER 15 GM BTL TOPICAL SCH ×3 (08:23→22:33)
[2020-05-15] MEDS: Insulin GLARGINE 100 un/ml 10 ml VIAL SUBCUT SCH (10:46)
[2020-05-15] MEDS ORDERED: fentaNYL 100 mcg/2 ml 50 MCG/ML VIAL ONE (13:35)
[2020-05-15] MEDS ORDERED: Midazolam 10 mg/10 ml VIAL 1 mg/ml 10 ml VIAL (10 mg) ONE (13:35)
[2020-05-15] MEDS: Morphine 2 MG/ML SYRINGE IV PRN (23:28)
[2020-05-16 05:55] LABS: ABS Basophils 0.1 10^3/ul (0-0.2); ABS Eosinophils 0.4 10^3/ul (0-0.6); ABS Lymphocytes 1.4 10^3/ul (1.0-4.8); ABS Monocytes 0.8 10^3/ul (0-0.8); ABS Neutrophils 3.2 10^3/ul (1.5-7.7); Hematocrit 23 % (42-52); Hemoglobin 7.6 g/dL (14.0-18.0); Lymphocyte % 23.7 %; Mean Corpuscular HGB Conc 34 g/dL (31-36); Mean Corpuscular Hemoglobin 30 pg (27-31); Mean Corpuscular Volume 89 fL (80-94); Platelet Count 319 10^3/uL (150-450); Red Blood Count 2.56 10^6 /uL (4.18-5.48); Red Cell Distribution Width 15 % (10-15); White Blood Count 5.8 10^3/uL (3.5-10.8)
[2020-05-16 06:13] LABS: Albumin 2.7 g/dL (3.2-5.2); BUN/Creatinine Ratio 15.1 (8-20); Calcium 7.8 mg/dL (8.6-10.3); EGFR African American 104.5 (>60); EGFR Non-African American 86.4 (>60); Globulin 2.6 g/dL (2-4); Potassium 4.1 mmol/L (3.5-5.0); Total Bilirubin 0.3 mg/dL (0.2-1.0); Total Protein 5.3 g/dL (6.4-8.9)
[2020-05-16] MEDS: Venlafaxine XR 75 mg PO SCH (08:17)
[2020-05-16] MEDS: Nystatin TOP POWDER 15 GM BTL TOPICAL SCH ×3 (08:20→23:36)
[2020-05-16] MEDS: Insulin GLARGINE 100 un/ml 10 ml VIAL SUBCUT SCH (10:46)
[2020-05-16] MEDS: Morphine 2 MG/ML SYRINGE IV PRN (23:26)
[2020-05-16] MEDS: Ondansetron 4 mg VIAL 2 MG/ML 2 ml VIAL IV PRN (23:26)
[2020-05-17] MEDS: Venlafaxine XR 75 mg PO SCH (09:40)
[2020-05-17] MEDS: Nystatin TOP POWDER 15 GM BTL TOPICAL SCH ×3 (09:43→19:54)
[2020-05-17] MEDS: Insulin GLARGINE 100 un/ml 10 ml VIAL SUBCUT SCH (09:45)
[2020-05-17 11:57] LABS: BUN/Creatinine Ratio 12.4 (8-20); Calcium 8.2 mg/dL (8.6-10.3); EGFR African American 90.8 (>60); EGFR Non-African American 75.1 (>60); HDL Cholesterol 25.7 mg/dL; Magnesium 1.8 mg/dL (1.9-2.7); Potassium 3.8 mmol/L (3.5-5.0)
[2020-05-17] MEDS ORDERED: Magnesium Sulfate 2 gm BAG 2 GM/50 ML BAG IVPB ONE (13:10)
[2020-05-17] MEDS: Ondansetron 4 mg VIAL 2 MG/ML 2 ml VIAL IV PRN (20:59)
[2020-05-18 06:51] LABS: ABS Basophils 0.1 10^3/ul (0-0.2); ABS Eosinophils 0.4 10^3/ul (0-0.6); ABS Lymphocytes 1.6 10^3/ul (1.0-4.8); ABS Monocytes 0.7 10^3/ul (0-0.8); ABS Neutrophils 2.9 10^3/ul (1.5-7.7); Eosinophil % 7.5 %; Hematocrit 25 % (42-52); Hemoglobin 8.5 g/dL (14.0-18.0); Lymphocyte % 27.6 %; Mean Corpuscular HGB Conc 34 g/dL (31-36); Mean Corpuscular Hemoglobin 30 pg (27-31); Mean Corpuscular Volume 89 fL (80-94); Mean Platelet Volume 8.9 fL (7.4-10.4); Platelet Count 309 10^3/uL (150-450); Red Blood Count 2.85 10^6 /uL (4.18-5.48); Red Cell Distribution Width 15 % (10-15); White Blood Count 5.8 10^3/uL (3.5-10.8)
[2020-05-18 07:01] LABS: BUN/Creatinine Ratio 13.4 (8-20); Calcium 8.2 mg/dL (8.6-10.3); EGFR African American 99.5 (>60); EGFR Non-African American 82.3 (>60); Magnesium 2.2 mg/dL (1.9-2.7)
[2020-05-18] MEDS: Ondansetron 4 mg VIAL 2 MG/ML 2 ml VIAL IV PRN (09:12)
[2020-05-18] MEDS: Venlafaxine XR 75 mg PO SCH (09:19)
[2020-05-18] MEDS: Nystatin TOP POWDER 15 GM BTL TOPICAL SCH ×3 (09:20→20:21)
[2020-05-18] MEDS: Insulin GLARGINE 100 un/ml 10 ml VIAL SUBCUT SCH (10:15)
[2020-05-18] MEDS: Aspirin EC 81 mg TAB.EC (enteric coated) PO SCH (12:15)
[2020-05-18] MEDS ORDERED: Enoxaparin 40 MG/0.4 ML SYR SUBCUT SCH (20:00)
[2020-05-19 08:07] LABS: ABS Basophils 0.1 10^3/ul (0-0.2); ABS Eosinophils 0.4 10^3/ul (0-0.6); ABS Lymphocytes 1.2 10^3/ul (1.0-4.8); ABS Monocytes 0.7 10^3/ul (0-0.8); ABS Neutrophils 2.8 10^3/ul (1.5-7.7); Eosinophil % 8.5 %; Hematocrit 24 % (42-52); Hemoglobin 8.4 g/dL (14.0-18.0); Lymphocyte % 22.5 %; Mean Corpuscular HGB Conc 34 g/dL (31-36); Mean Corpuscular Hemoglobin 30 pg (27-31); Mean Corpuscular Volume 88 fL (80-94); Mean Platelet Volume 7.8 fL (7.4-10.4); Platelet Count 262 10^3/uL (150-450); Red Blood Count 2.78 10^6 /uL (4.18-5.48); Red Cell Distribution Width 15 % (10-15); White Blood Count 5.2 10^3/uL (3.5-10.8)
[2020-05-19] MEDS: Aspirin EC 81 mg TAB.EC (enteric coated) PO SCH (09:00)
[2020-05-19] MEDS: Venlafaxine XR 75 mg PO SCH (09:02)
[2020-05-19] MEDS: Insulin GLARGINE 100 un/ml 10 ml VIAL SUBCUT SCH (09:04)
[2020-05-19] MEDS: Nystatin TOP POWDER 15 GM BTL TOPICAL SCH ×2 (09:05→12:22)
[2020-05-19 11:49] VITALS: BP 119/65
== END 2020-05-19 15:20 | DRG 710 ==
LOC: ED 09:24 → ICU 11:39 → MED 05-10 14:35
PROVIDERS: ADMIT Internal Medicine; ATTEND Internal Medicine

== ENCOUNTER 2020-05-19 14:03 | Inpatient (IN) ==
[2020-05-19] MEDS ORDERED: Magnesium Hydroxide LIQ 30 ML UDC PO PRN (18:48)
[2020-05-19] MEDS ORDERED: Senna TAB 8.6 mg TAB PO PRN (18:48)
[2020-05-19] MEDS: Enoxaparin 40 MG/0.4 ML SYR SUBCUT SCH (20:49)
[2020-05-20 08:43] LABS: ABS Basophils 0.1 10^3/ul (0-0.2); ABS Eosinophils 0.5 10^3/ul (0-0.6); ABS Lymphocytes 1.6 10^3/ul (1.0-4.8); ABS Monocytes 0.7 10^3/ul (0-0.8); ABS Neutrophils 3.7 10^3/ul (1.5-7.7); Eosinophil % 7.2 %; Hematocrit 31 % (42-52); Hemoglobin 10.4 g/dL (14.0-18.0); Lymphocyte % 24.3 %; Mean Corpuscular HGB Conc 34 g/dL (31-36); Mean Corpuscular Hemoglobin 30 pg (27-31); Mean Corpuscular Volume 88 fL (80-94); Mean Platelet Volume 8.4 fL (7.4-10.4); Platelet Count 296 10^3/uL (150-450); Red Blood Count 3.47 10^6 /uL (4.18-5.48); Red Cell Distribution Width 15 % (10-15); White Blood Count 6.6 10^3/uL (3.5-10.8)
[2020-05-20] MEDS: Aspirin EC 81 mg TAB.EC (enteric coated) PO SCH (09:00)
[2020-05-20 09:02] LABS: Albumin 3.4 g/dL (3.2-5.2); BUN/Creatinine Ratio 15.2 (8-20); Calcium 8.9 mg/dL (8.6-10.3); EGFR African American 97.2 (>60); EGFR Non-African American 80.3 (>60); Globulin 3.3 g/dL (2-4); Potassium 3.8 mmol/L (3.5-5.0); Total Bilirubin 0.5 mg/dL (0.2-1.0); Total Protein 6.7 g/dL (6.4-8.9)
[2020-05-20] MEDS: Venlafaxine XR 75 mg PO SCH (09:02)
[2020-05-20] MEDS: Insulin GLARGINE 100 un/ml 10 ml VIAL SUBCUT SCH (09:03)
[2020-05-20] MEDS: Enoxaparin 40 MG/0.4 ML SYR SUBCUT SCH (20:19)
[2020-05-21] MEDS: Venlafaxine XR 75 mg PO SCH (09:00)
[2020-05-21] MEDS: Aspirin EC 81 mg TAB.EC (enteric coated) PO SCH (09:00)
[2020-05-21] MEDS: Insulin GLARGINE 100 un/ml 10 ml VIAL SUBCUT SCH (09:01)
[2020-05-21] MEDS: Enoxaparin 40 MG/0.4 ML SYR SUBCUT SCH (20:55)
[2020-05-22] MEDS: Aspirin EC 81 mg TAB.EC (enteric coated) PO SCH (09:24)
[2020-05-22] MEDS: Venlafaxine XR 75 mg PO SCH (09:24)
[2020-05-22] MEDS: Insulin GLARGINE 100 un/ml 10 ml VIAL SUBCUT SCH (09:25)
[2020-05-22] MEDS: Enoxaparin 40 MG/0.4 ML SYR SUBCUT SCH (20:56)
[2020-05-23] MEDS: Venlafaxine XR 75 mg PO SCH (10:03)
[2020-05-23] MEDS: Aspirin EC 81 mg TAB.EC (enteric coated) PO SCH (10:03)
[2020-05-23] MEDS: Insulin GLARGINE 100 un/ml 10 ml VIAL SUBCUT SCH (10:11)
[2020-05-23] MEDS: Enoxaparin 40 MG/0.4 ML SYR SUBCUT SCH (20:40)
[2020-05-24] MEDS: Venlafaxine XR 75 mg PO SCH (09:18)
[2020-05-24] MEDS: Aspirin EC 81 mg TAB.EC (enteric coated) PO SCH (09:19)
[2020-05-24] MEDS: Insulin GLARGINE 100 un/ml 10 ml VIAL SUBCUT SCH (09:21)
[2020-05-24 16:27] VITALS: BP 128/68
[2020-05-24] MEDS ORDERED: Ondansetron ODT 4 mg TAB 4 MG TAB PO PRN (17:06)
[2020-05-24] MEDS: Enoxaparin 40 MG/0.4 ML SYR SUBCUT SCH (21:37)
[2020-05-25] MEDS: Aspirin EC 81 mg TAB.EC (enteric coated) PO SCH (09:13)
[2020-05-25] MEDS: Venlafaxine XR 75 mg PO SCH (09:13)
[2020-05-25] MEDS: Insulin GLARGINE 100 un/ml 10 ml VIAL SUBCUT SCH (09:15)
== END 2020-05-25 14:25 | disposition home or self-care (01) | DRG 860 ==
LOC: PMRU 18:05
PROVIDERS: ADMIT Physical Medicine & Rehabilitation; ATTEND Physical Medicine & Rehabilitation

== ENCOUNTER 2022-06-01 10:21 | Inpatient (IN) ==
[2022-06-01 13:03] LABS: Hematocrit 30 % (42-52); Hemoglobin 9.5 g/dL (14.0-18.0); Mean Corpuscular HGB Conc 31 g/dL (31-36); Mean Corpuscular Hemoglobin 26 pg (27-31); Mean Corpuscular Volume 82 fL (80-94); Mean Platelet Volume 8.1 fL (7.4-10.4); Platelet Count 364 10^3/uL (150-450); Red Blood Count 3.72 10^6 /uL (4.18-5.48); Red Cell Distribution Width 14 % (10-15)
[2022-06-01 13:16] LABS: INR 1.24 (0.89-1.11)
[2022-06-01 13:51] LABS: Albumin 2.5 g/dL (3.2-5.2); Albumin/Globulin Ratio 0.7 (1-3); C Reactive Protein 288.48 mg/L (<8.01); Calcium 7.7 mg/dL (8.6-10.3); Globulin 3.5 g/dL (2-4); Potassium 3.9 mmol/L (3.5-5.0); Total Bilirubin 0.5 mg/dL (0.2-1.0); eGFR CKD-EPI 24.8 (>60)
[2022-06-01] MEDS ORDERED: Cefepime 2 GM in Dextrose 2 GM/50 ML BAG IV ONE (14:06)
[2022-06-01] MEDS ORDERED: LACTATED RINGERS SEPSIS IV ONE (14:10)
[2022-06-01 14:14] LABS: ABS Basophils 0.1 10^3/ul (0-0.2); ABS Eosinophils 0.2 10^3/ul (0-0.6); ABS Lymphocytes 1.5 10^3/ul (1.0-4.8); ABS Monocytes 1.7 10^3/ul (0-0.8); ABS Neutrophils 20.5 10^3/ul (1.5-7.7); Eosinophil % 0.9 %; Lymphocyte % 6.1 %
[2022-06-01] MEDS ORDERED: Vancomycin 1,750 MG in NS 0.9% 500 ml BAG 500 ML IVPB ONE (15:00)
[2022-06-01] MEDS ORDERED: Fluticasone NASAL SPRAY 50MCG 16 gm SPRAY BTL INTRANASAL PRN (18:38)
[2022-06-01] MEDS ORDERED: Vancomycin per Pharmacy 1 EA NOTE FOLLOW UP SCH (19:00)
[2022-06-01] MEDS ORDERED: Gadoteridol (CONTRAST) 279.3 MG/ML 10 ML IV ONE (20:39)
[2022-06-01] MEDS ORDERED: Heparin 5000 UNITS/ML 1 mL VIAL SUBCUT SCH (22:00)
[2022-06-01] MEDS ORDERED: Dextrose 50% Syringe 50 ml 25 GM/50 ML SYRINGE IV PUSH PRN (23:40)
[2022-06-02] MEDS ORDERED: Cefepime 2 GM in Dextrose 2 GM/50 ML BAG IV SCH (02:30)
[2022-06-02 05:56] LABS: Hematocrit 28 % (42-52); Hemoglobin 8.9 g/dL (14.0-18.0); Mean Corpuscular HGB Conc 32 g/dL (31-36); Mean Corpuscular Hemoglobin 26 pg (27-31); Mean Corpuscular Volume 82 fL (80-94); Mean Platelet Volume 8.4 fL (7.4-10.4); Platelet Count 296 10^3/uL (150-450); Red Blood Count 3.46 10^6 /uL (4.18-5.48); Red Cell Distribution Width 15 % (10-15); White Blood Count 22.4 10^3/uL (3.5-10.8)
[2022-06-02] MEDS ORDERED: Vancomycin Random Level NOTE FOLLOW UP ONE (06:00)
[2022-06-02 06:07] LABS: ABS Basophils 0.1 10^3/ul (0-0.2); ABS Eosinophils 0.2 10^3/ul (0-0.6); ABS Lymphocytes 1.1 10^3/ul (1.0-4.8); ABS Monocytes 1.7 10^3/ul (0-0.8); ABS Neutrophils 19.4 10^3/ul (1.5-7.7); Eosinophil % 0.9 %
[2022-06-02 06:15] LABS: C Reactive Protein 257.93 mg/L (<8.01); Calcium 7.4 mg/dL (8.6-10.3); Potassium 3.6 mmol/L (3.5-5.0); Vancomycin Random 14.7 mcg/mL
[2022-06-02] MEDS: Venlafaxine XR 75 mg PO SCH ×2 (08:44)
[2022-06-02] MEDS ORDERED: Insulin ASPART (NF) 1 UNIT SUBCUT SCH (09:00)
[2022-06-02] MEDS ORDERED: Vancomycin 750 MG in NS 0.9% 250 ML IVPB ONE (10:00)
[2022-06-02] MEDS ORDERED: Piperacillin/Tazobac ADVAN 3.375 GM in NS 0.9% 100 ml BAG 100 ML IV ONE (12:23)
[2022-06-02] MEDS ORDERED: Zosyn per Pharmacy NOTE FOLLOW UP SCH (13:00)
[2022-06-02] MEDS ORDERED: Lactated Ringers 1000 ml BAG 1,000 ML IV SCH (13:00)
[2022-06-02] MEDS ORDERED: ceFAZolin 2 GM in NS PREMIX 2 GM/100 ML BAG IVPB SCH (13:00)
[2022-06-02] MEDS ORDERED: NS 0.9% 1000 ml BAG 1,000 ML IV SCH (15:00)
[2022-06-02] MEDS: Heparin 5000 UNITS/ML 1 mL VIAL SUBCUT SCH ×2 (16:54→21:36)
[2022-06-02] MEDS: ZOSYN 3.375 GM Q8H per EXTENDED INFUSION IV SCH (17:42)
[2022-06-02] MEDS ORDERED: Gadoteridol (CONTRAST) 279.3 MG/ML 10 ML IV ONE (20:44)
[2022-06-02] MEDS: Ondansetron 4 mg VIAL 2 MG/ML 2 ml VIAL IV PRN (22:06)
[2022-06-03] MEDS: ZOSYN 3.375 GM Q8H per EXTENDED INFUSION IV SCH ×3 (01:54→23:21)
[2022-06-03] MEDS ORDERED: Vancomycin Random Level NOTE FOLLOW UP ONE (06:00)
[2022-06-03 06:43] LABS: ABS Eosinophils 0.3 10^3/ul (0-0.6); ABS Lymphocytes 1.2 10^3/ul (1.0-4.8); ABS Monocytes 1.1 10^3/ul (0-0.8); ABS Neutrophils 16.2 10^3/ul (1.5-7.7); Eosinophil % 1.4 %; Hematocrit 25 % (42-52); Hemoglobin 8.1 g/dL (14.0-18.0); Lymphocyte % 6.2 %; Mean Corpuscular HGB Conc 32 g/dL (31-36); Mean Corpuscular Hemoglobin 26 pg (27-31); Mean Corpuscular Volume 82 fL (80-94); Mean Platelet Volume 8.1 fL (7.4-10.4); Platelet Count 284 10^3/uL (150-450); Red Blood Count 3.07 10^6 /uL (4.18-5.48); Red Cell Distribution Width 14 % (10-15); White Blood Count 18.8 10^3/uL (3.5-10.8)
[2022-06-03 07:05] LABS: Calcium 7.1 mg/dL (8.6-10.3); Potassium 3.7 mmol/L (3.5-5.0); eGFR CKD-EPI 32.4 (>60)
[2022-06-03] MEDS ORDERED: Lactated Ringers 1000 ml BAG 1,000 ML IV SCH ×2 (09:00→10:51)
[2022-06-03] MEDS ORDERED: Iodixanol (CONTRAST) 320 MG/ML 100 ML SDV IV ONE (09:45)
[2022-06-03] MEDS ORDERED: Perflutren Lipid Microsphere 3 ML VIAL ONE (11:03)
[2022-06-03] MEDS: NS 0.9% 1000 ml BAG 1,000 ML IV SCH ×2 (11:29→23:24)
[2022-06-03] MEDS: Venlafaxine XR 75 mg PO SCH ×2 (11:31)
[2022-06-03] MEDS ORDERED: Propofol 10 MG/ML 20 ML BTL ONE (13:09)
[2022-06-03] MEDS ORDERED: Midazolam 5 mg/5 ml VIAL 1 mg/ml 5 ml VIAL (5 mg) ONE (13:09)
[2022-06-03] MEDS ORDERED: Lidocaine 2% PF 5 ML VIAL ONE (13:09)
[2022-06-03] MEDS ORDERED: fentaNYL 250 mcg/5 ml 50 MCG/ML 5 ml VIAL (250 MCG) ONE (13:09)
[2022-06-03] MEDS ORDERED: Dextrose 50% Syringe 50 ml 25 GM/50 ML SYRINGE IV PUSH PRN (14:40)
[2022-06-03] MEDS ORDERED: Naloxone 0.4 mg VIAL 0.4 mg/ml 1 ml VIAL IV PRN (15:15)
[2022-06-03] MEDS ORDERED: HYDROmorphone 1 MG/1 ML SYRINGE IV PRN (15:15)
[2022-06-03] MEDS ORDERED: Ondansetron 4 mg VIAL 2 MG/ML 2 ml VIAL ONE (15:26)
[2022-06-03] MEDS ORDERED: ZOSYN 3.375 GM x ONE DOSE over 30 miuntes IV (23:00)
[2022-06-04] MEDS: ZOSYN 3.375 GM Q8H per EXTENDED INFUSION IV SCH ×3 (03:15→20:02)
[2022-06-04 08:24] LABS: ABS Basophils 0.1 10^3/ul (0-0.2); ABS Eosinophils 0.4 10^3/ul (0-0.6); ABS Monocytes 1.4 10^3/ul (0-0.8); Hematocrit 26 % (42-52); Hemoglobin 8.2 g/dL (14.0-18.0); Lymphocyte % 5.6 %; Mean Corpuscular HGB Conc 31 g/dL (31-36); Mean Corpuscular Hemoglobin 26 pg (27-31); Mean Corpuscular Volume 83 fL (80-94); Mean Platelet Volume 8.3 fL (7.4-10.4); Platelet Count 317 10^3/uL (150-450); Red Blood Count 3.17 10^6 /uL (4.18-5.48); Red Cell Distribution Width 15 % (10-15); White Blood Count 18.9 10^3/uL (3.5-10.8)
[2022-06-04 08:57] LABS: C Reactive Protein 179.72 mg/L (<8.01); Calcium 7.1 mg/dL (8.6-10.3); Potassium 4.1 mmol/L (3.5-5.0); eGFR CKD-EPI 35.8 (>60)
[2022-06-04] MEDS: Heparin 5000 UNITS/ML 1 mL VIAL SUBCUT SCH ×3 (09:34→22:44)
[2022-06-04] MEDS: Venlafaxine XR 75 mg PO SCH (09:36)
[2022-06-04 10:22] LABS: Erythrocyte Sed Rate 94 mm/Hr (0-19)
[2022-06-04] MEDS ORDERED: Senna TAB 8.6 mg TAB PO PRN (11:17)
[2022-06-04] MEDS: Magnesium Hydroxide LIQ 30 ML UDC PO SCH (20:07)
[2022-06-05] MEDS: ZOSYN 3.375 GM Q8H per EXTENDED INFUSION IV SCH ×3 (03:58→21:48)
[2022-06-05] MEDS: Heparin 5000 UNITS/ML 1 mL VIAL SUBCUT SCH ×3 (06:45→21:38)
[2022-06-05] MEDS: Magnesium Hydroxide LIQ 30 ML UDC PO SCH ×2 (09:13→22:47)
[2022-06-05] MEDS: Venlafaxine XR 75 mg PO SCH (09:14)
[2022-06-05] MEDS: Morphine 2 MG/ML SYRINGE IV PRN (09:19)
[2022-06-05 09:30] LABS: ABS Basophils 0.1 10^3/ul (0-0.2); ABS Eosinophils 0.6 10^3/ul (0-0.6); ABS Lymphocytes 1.2 10^3/ul (1.0-4.8); ABS Neutrophils 10.6 10^3/ul (1.5-7.7); Eosinophil % 4.4 %; Hematocrit 29 % (42-52); Hemoglobin 8.9 g/dL (14.0-18.0); Lymphocyte % 9.1 %; Mean Corpuscular HGB Conc 31 g/dL (31-36); Mean Corpuscular Hemoglobin 25 pg (27-31); Mean Corpuscular Volume 82 fL (80-94); Mean Platelet Volume 7.8 fL (7.4-10.4); Platelet Count 336 10^3/uL (150-450); Red Blood Count 3.54 10^6 /uL (4.18-5.48); Red Cell Distribution Width 15 % (10-15); White Blood Count 13.5 10^3/uL (3.5-10.8)
[2022-06-05 10:03] LABS: Calcium 7.1 mg/dL (8.6-10.3); Potassium 4.3 mmol/L (3.5-5.0); eGFR CKD-EPI 40.1 (>60)
[2022-06-06] MEDS: Morphine 2 MG/ML SYRINGE IV PRN ×4 (01:51→23:47)
[2022-06-06] MEDS: ZOSYN 3.375 GM Q8H per EXTENDED INFUSION IV SCH ×3 (03:46→20:10)
[2022-06-06] MEDS ORDERED: Acetaminophen IV 1 GM/100ML 1,000 MG/100 ML BAG IV PRN (03:53)
[2022-06-06] MEDS: Heparin 5000 UNITS/ML 1 mL VIAL SUBCUT SCH ×3 (06:33→21:38)
[2022-06-06 06:53] LABS: ABS Basophils 0.1 10^3/ul (0-0.2); ABS Eosinophils 0.6 10^3/ul (0-0.6); ABS Lymphocytes 1.6 10^3/ul (1.0-4.8); ABS Monocytes 1.1 10^3/ul (0-0.8); ABS Neutrophils 9.4 10^3/ul (1.5-7.7); Eosinophil % 4.9 %; Hematocrit 27 % (42-52); Hemoglobin 8.6 g/dL (14.0-18.0); Lymphocyte % 12.2 %; Mean Corpuscular HGB Conc 32 g/dL (31-36); Mean Corpuscular Hemoglobin 26 pg (27-31); Mean Corpuscular Volume 81 fL (80-94); Mean Platelet Volume 8.2 fL (7.4-10.4); Platelet Count 357 10^3/uL (150-450); Red Blood Count 3.36 10^6 /uL (4.18-5.48); Red Cell Distribution Width 15 % (10-15); White Blood Count 12.7 10^3/uL (3.5-10.8)
[2022-06-06 07:20] LABS: Calcium 7.1 mg/dL (8.6-10.3); Potassium 3.9 mmol/L (3.5-5.0); eGFR CKD-EPI 43.8 (>60)
[2022-06-06] MEDS: NS 0.9% 1000 ml BAG 1,000 ML IV SCH (10:20)
[2022-06-06] MEDS: Venlafaxine XR 75 mg PO SCH (10:21)
[2022-06-06] MEDS: Magnesium Hydroxide LIQ 30 ML UDC PO SCH ×2 (10:22→21:56)
[2022-06-07] MEDS: ZOSYN 3.375 GM Q8H per EXTENDED INFUSION IV SCH ×3 (03:56→19:32)
[2022-06-07] MEDS: NS 0.9% 1000 ml BAG 1,000 ML IV SCH (03:56)
[2022-06-07] MEDS: Morphine 2 MG/ML SYRINGE IV PRN (05:42)
[2022-06-07] MEDS: Heparin 5000 UNITS/ML 1 mL VIAL SUBCUT SCH ×3 (05:42→21:48)
[2022-06-07 06:15] LABS: ABS Basophils 0.2 10^3/ul (0-0.2); ABS Eosinophils 0.7 10^3/ul (0-0.6); ABS Lymphocytes 1.9 10^3/ul (1.0-4.8); ABS Neutrophils 9.9 10^3/ul (1.5-7.7); Eosinophil % 5.4 %; Hematocrit 30 % (42-52); Hemoglobin 9.4 g/dL (14.0-18.0); Lymphocyte % 13.6 %; Mean Corpuscular HGB Conc 32 g/dL (31-36); Mean Corpuscular Hemoglobin 26 pg (27-31); Mean Corpuscular Volume 82 fL (80-94); Platelet Count 387 10^3/uL (150-450); Red Blood Count 3.63 10^6 /uL (4.18-5.48); Red Cell Distribution Width 15 % (10-15); White Blood Count 13.6 10^3/uL (3.5-10.8)
[2022-06-07 07:00] LABS: Calcium 7.2 mg/dL (8.6-10.3); Potassium 4.1 mmol/L (3.5-5.0); eGFR CKD-EPI 56.9 (>60)
[2022-06-07] MEDS ORDERED: Heparin 2 UNITS/ML IVPREMIX 2,000 UNIT/1,000 ML BAG IV ONE (07:58)
[2022-06-07] MEDS ORDERED: fentaNYL 100 mcg/2 ml 50 MCG/ML VIAL ONE (07:58)
[2022-06-07] MEDS ORDERED: Iodixanol 320 (CONTRAST) 100 ML SDV ONE (07:58)
[2022-06-07] MEDS ORDERED: Lidocaine 1% MPF 5 ML VIAL ONE (07:58)
[2022-06-07] MEDS ORDERED: Midazolam 5 mg/5 ml VIAL 1 mg/ml 5 ml VIAL (5 mg) ONE (07:58)
[2022-06-07] MEDS ORDERED: Heparin 2 UNITS/ML IVPREMIX 1,000 UNIT/500 ML BAG IV ONE (08:06)
[2022-06-07] MEDS ORDERED: fentaNYL 250 mcg/5 ml 50 MCG/ML 5 ml VIAL (250 MCG) ONE (08:24)
[2022-06-07] MEDS ORDERED: CALCIUM GLUCONATE 1GM/50ML NS 1 GM/50 ML BAG IV ONE (09:00)
[2022-06-07] MEDS ORDERED: HYDROmorphone 1 MG/1 ML SYRINGE ONE ×2 (09:56→10:24)
[2022-06-07] MEDS ORDERED: Ondansetron 4 mg VIAL 2 MG/ML 2 ml VIAL ONE (11:31)
[2022-06-07 12:10] LABS: Hematocrit 31 % (42-52); Hemoglobin 9.8 g/dL (14.0-18.0)
[2022-06-07] MEDS: Ondansetron 4 mg VIAL 2 MG/ML 2 ml VIAL IV PRN (13:19)
[2022-06-07] MEDS: Venlafaxine XR 75 mg PO SCH (13:20)
[2022-06-07] MEDS: Magnesium Hydroxide LIQ 30 ML UDC PO SCH ×2 (14:27→21:48)
[2022-06-07] MEDS ORDERED: Prochlorperazine 5 mg/ml 2 ml VIAL (10 mg) IV PRN (15:01)
[2022-06-07] MEDS ORDERED: Scopolamine 1 mg/72hr PATCH TRANSDERM SCH (18:00)
[2022-06-08] MEDS: ZOSYN 3.375 GM Q8H per EXTENDED INFUSION IV SCH ×2 (03:18→12:24)
[2022-06-08] MEDS: Heparin 5000 UNITS/ML 1 mL VIAL SUBCUT SCH ×3 (05:54→23:35)
[2022-06-08 06:25] LABS: ABS Basophils 0.1 10^3/ul (0-0.2); ABS Eosinophils 0.4 10^3/ul (0-0.6); ABS Lymphocytes 1.5 10^3/ul (1.0-4.8); ABS Neutrophils 9.8 10^3/ul (1.5-7.7); Hematocrit 30 % (42-52); Hemoglobin 9.2 g/dL (14.0-18.0); Mean Corpuscular HGB Conc 31 g/dL (31-36); Mean Corpuscular Hemoglobin 25 pg (27-31); Mean Corpuscular Volume 82 fL (80-94); Mean Platelet Volume 7.8 fL (7.4-10.4); Platelet Count 388 10^3/uL (150-450); Red Blood Count 3.67 10^6 /uL (4.18-5.48); Red Cell Distribution Width 15 % (10-15); White Blood Count 12.8 10^3/uL (3.5-10.8)
[2022-06-08 07:01] LABS: Albumin/Globulin Ratio 0.6 (1-3); Calcium 7.3 mg/dL (8.6-10.3); Globulin 3.4 g/dL (2-4); HDL Cholesterol 17.5 mg/dL; Total Bilirubin 0.2 mg/dL (0.2-1.0); Total Protein 5.4 g/dL (6.4-8.9); eGFR CKD-EPI 60.3 (>60)
[2022-06-08] MEDS: Magnesium Hydroxide LIQ 30 ML UDC PO SCH ×2 (09:03→21:03)
[2022-06-08] MEDS: Venlafaxine XR 75 mg PO SCH (09:13)
[2022-06-08] MEDS: Morphine 2 MG/ML SYRINGE IV PRN (15:07)
[2022-06-08] MEDS: ceFAZolin 2 GM in NS PREMIX 2 GM/100 ML BAG IVPB SCH (17:01)
[2022-06-09] MEDS: Heparin 5000 UNITS/ML 1 mL VIAL SUBCUT SCH ×2 (05:41→13:37)
[2022-06-09] MEDS: ceFAZolin 2 GM in NS PREMIX 2 GM/100 ML BAG IVPB SCH ×3 (08:10→15:46)
[2022-06-09] MEDS: Venlafaxine XR 75 mg PO SCH (10:10)
[2022-06-09] MEDS: Magnesium Hydroxide LIQ 30 ML UDC PO SCH (10:11)
[2022-06-09 11:22] VITALS: BP 157/79
== END 2022-06-09 15:50 | disposition home health service (06) | DRG 853 ==
LOC: ED 10:21 → EDHOLD 10:21 → SUATTDRO 18:08 → SSU 06-02 02:30 → SUATTDRO 06-02 16:00
PROVIDERS: ADMIT Internal Medicine; ATTEND Internal Medicine

== ENCOUNTER 2022-06-22 16:00 | Inpatient (IN) ==
[2022-06-22 21:36] LABS: ABS Basophils 0.1 10^3/ul (0-0.2); ABS Eosinophils 0.5 10^3/ul (0-0.6); ABS Lymphocytes 1.7 10^3/ul (1.0-4.8); ABS Monocytes 1.1 10^3/ul (0-0.8); ABS Neutrophils 4.7 10^3/ul (1.5-7.7); Eosinophil % 6.6 %; Hematocrit 29 % (42-52); Hemoglobin 9.2 g/dL (14.0-18.0); Lymphocyte % 21.2 %; Mean Corpuscular HGB Conc 31 g/dL (31-36); Mean Corpuscular Hemoglobin 26 pg (27-31); Mean Corpuscular Volume 84 fL (80-94); Mean Platelet Volume 8.7 fL (7.4-10.4); Platelet Count 292 10^3/uL (150-450); Red Cell Distribution Width 18 % (10-15); White Blood Count 8.1 10^3/uL (3.5-10.8)
[2022-06-22 22:06] LABS: CO2 Carbon Dioxide 28 mmol/L (22-32); Chloride 109 mmol/L (101-111); Potassium 4.9 mmol/L (3.5-5.0); Sodium 140 mmol/L (135-145)
[2022-06-22 22:07] LABS: AST 26 U/L (13-39); Albumin 2.4 g/dL (3.2-5.2); Albumin/Globulin Ratio 0.6 (1-3); Alkaline Phosphatase 355 U/L (35-149); Anion Gap 3 mmol/L (2-11); Blood Urea Nitrogen 25 mg/dL (6-24); C Reactive Protein 32.95 mg/L (<8.01); Calcium 7.5 mg/dL (8.6-10.3); Globulin 3.7 g/dL (2-4); Glucose 110 mg/dL (70-100); Total Protein 6.1 g/dL (6.4-8.9); eGFR CKD-EPI 58.3 (>60)
[2022-06-22] MEDS ORDERED: Morphine 4 MG/ML VIAL (1 ml) IV ONE (22:12)
[2022-06-22 22:59] LABS: ALT < 3 U/L (7-52)
[2022-06-22] MEDS ORDERED: CEFAZOLIN IV SCH (23:00)
[2022-06-22] MEDS ORDERED: SODIUM CHLORIDE IV SCH (23:00)
[2022-06-22] MEDS ORDERED: Enoxaparin 40 MG/0.4 ML SYR SUBCUT SCH (23:00)
[2022-06-23] MEDS: Insulin GLARGINE 100 un/ml 10 ml VIAL SUBCUT SCH ×2 (00:55→21:21)
[2022-06-23 05:22] LABS: ABS Basophils 0.1 10^3/ul (0-0.2); ABS Eosinophils 0.4 10^3/ul (0-0.6); ABS Lymphocytes 1.2 10^3/ul (1.0-4.8); ABS Monocytes 0.8 10^3/ul (0-0.8); ABS Neutrophils 3.4 10^3/ul (1.5-7.7); Eosinophil % 7.3 %; Hematocrit 26 % (42-52); Hemoglobin 8.4 g/dL (14.0-18.0); Lymphocyte % 20.9 %; Mean Corpuscular HGB Conc 32 g/dL (31-36); Mean Corpuscular Hemoglobin 27 pg (27-31); Mean Corpuscular Volume 84 fL (80-94); Mean Platelet Volume 8.4 fL (7.4-10.4); Platelet Count 241 10^3/uL (150-450); Red Blood Count 3.15 10^6 /uL (4.18-5.48); Red Cell Distribution Width 18 % (10-15)
[2022-06-23] MEDS: ceFAZolin 2 GM in NS PREMIX 2 GM/100 ML BAG IVPB SCH ×3 (05:42→22:13)
[2022-06-23 05:54] LABS: Calcium 7.4 mg/dL (8.6-10.3); Potassium 4.6 mmol/L (3.5-5.0); eGFR CKD-EPI 69.1 (>60)
[2022-06-23] MEDS: Venlafaxine XR 75 mg PO SCH ×2 (08:47→08:48)
[2022-06-23] MEDS: Aspirin EC 81 mg TAB.EC (enteric coated) PO SCH (08:49)
[2022-06-23] MEDS ORDERED: Morphine 2 MG/ML SYRINGE IV PRN (13:26)
[2022-06-23 14:39] LABS: Ferritin 243.8 ng/mL (24-336)
[2022-06-23 15:39] LABS: Folate 8.29 ng/mL (5.90-24.80)
[2022-06-23] MEDS ORDERED: Gadoteridol (CONTRAST) 279.3 MG/ML 10 ML IV ONE (16:14)
[2022-06-23] MEDS: Heparin 5000 UNITS/ML 1 mL VIAL SUBCUT SCH ×2 (17:34→22:14)
[2022-06-24] MEDS: Heparin 5000 UNITS/ML 1 mL VIAL SUBCUT SCH (05:57)
[2022-06-24] MEDS ORDERED: NS 0.9% 1000 ml BAG 1,000 ML IV SCH (06:00)
[2022-06-24] MEDS: ceFAZolin 2 GM in NS PREMIX 2 GM/100 ML BAG IVPB SCH (06:04)
[2022-06-24 06:19] LABS: ABS Basophils 0.1 10^3/ul (0-0.2); ABS Eosinophils 0.5 10^3/ul (0-0.6); ABS Lymphocytes 1.6 10^3/ul (1.0-4.8); ABS Monocytes 0.8 10^3/ul (0-0.8); ABS Neutrophils 3.4 10^3/ul (1.5-7.7); Eosinophil % 8.2 %; Hematocrit 27 % (42-52); Hemoglobin 8.4 g/dL (14.0-18.0); Lymphocyte % 24.6 %; Mean Corpuscular HGB Conc 32 g/dL (31-36); Mean Corpuscular Hemoglobin 26 pg (27-31); Mean Corpuscular Volume 83 fL (80-94); Mean Platelet Volume 8.5 fL (7.4-10.4); Platelet Count 245 10^3/uL (150-450); Red Blood Count 3.21 10^6 /uL (4.18-5.48); Red Cell Distribution Width 18 % (10-15); White Blood Count 6.4 10^3/uL (3.5-10.8)
[2022-06-24 07:16] LABS: Calcium 7.4 mg/dL (8.6-10.3); Potassium 4.7 mmol/L (3.5-5.0); eGFR CKD-EPI 61.9 (>60)
[2022-06-24] MEDS: Venlafaxine XR 75 mg PO SCH ×2 (07:56)
[2022-06-24] MEDS: Aspirin EC 81 mg TAB.EC (enteric coated) PO SCH (11:14)
[2022-06-24 12:20] VITALS: BP 126/81
== END 2022-06-24 14:20 | disposition home or self-care (01) | DRG 638 ==
LOC: ED 16:00 → EDHOLD 22:54 → SSU 06-23 02:45
PROVIDERS: ADMIT Internal Medicine; ATTEND Internal Medicine

== ENCOUNTER 2022-07-01 16:03 | Inpatient (IN) ==
[~2022-07-01 16:03] MED LIST changes: +Buffered Lidocaine 1% SYRIN 1 ml INTRADERM ONE; -Buffered Lidocaine 1% SYRIN* 1 ML/SYRINGE INTRADERM ONE; -EPHEDrine (Pressors)* 50 MG/ML VIAL ONE; +HYDROcodone/ACETAMIN 5/325 mg TAB PO PRN; -Lactated Ringers 1000 ML Bag* 1,000 ML IV SCH; +Lactated Ringers 1000 ml BAG 1,000 ML IV SCH; +Metoclopramide 5 MG/ML VIAL (10 mg) IV PRN; +Naloxone 0.4 mg VIAL 0.4 mg/ml 1 ml VIAL IV PRN; +Ondansetron 4 mg VIAL 2 MG/ML 2 ml VIAL IV PRN; -Ondansetron INJ* 2 MG/ML VIAL ONE; -Phenylephrine 40 MCG/ML SYRINGE ONE; -Propofol* 10 MG/ML 20 ML BTL ONE; +fentaNYL 100 mcg/2 ml 50 MCG/ML VIAL IV PRN
[2022-07-01] MEDS ORDERED: Bupivacaine 0.5% SDV PF 30ML VIAL ONE (16:17)
[2022-07-01] MEDS ORDERED: Dextrose 50% Syringe 50 ml 25 GM/50 ML SYRINGE IV PUSH PRN (16:42)
[2022-07-01] MEDS ORDERED: Lidocaine 2% PF 5 ML VIAL ONE (18:40)
[2022-07-01] MEDS ORDERED: ROPIVACAINE 5 MG/ML 30 ML BTL (0.5%) ONE (18:40)
[2022-07-01] MEDS ORDERED: Propofol 10 MG/ML 20 ML BTL ONE (18:54)
[2022-07-01] MEDS ORDERED: Midazolam 2 mg/2 ml VIAL 1 mg/ml 2 ml VIAL (2 mg) ONE (18:54)
[2022-07-01] MEDS ORDERED: Ondansetron ODT 4 mg TAB 4 MG TAB PO PRN (20:33)
[2022-07-01] MEDS ORDERED: Magnesium Hydroxide LIQ 30 ML UDC PO PRN (20:33)
[2022-07-01] MEDS ORDERED: Lactulose 30 ml UDC PO PRN (20:33)
[2022-07-01] MEDS ORDERED: Ondansetron 4 mg VIAL 2 MG/ML 2 ml VIAL IV PRN (20:33)
[2022-07-01] MEDS ORDERED: Fluticasone NASAL SPRAY 50MCG 16 gm SPRAY BTL INTRANASAL PRN (20:37)
[2022-07-01] MEDS ORDERED: SOD CHLORIDE 0.9% IV SCH (20:45)
[2022-07-01] MEDS ORDERED: [UNRECOGNIZED DRUG - OTHER] IV SCH (20:45)
[2022-07-01] MEDS ORDERED: CEFAZOLIN IV SCH (20:45)
[2022-07-01] MEDS ORDERED: Lactated Ringers 1000 ml BAG 1,000 ML IV SCH (21:00)
[2022-07-01] MEDS ORDERED: INSULIN ASPART SUBCUT SCH (22:00)
[2022-07-01] MEDS: Magnesium Hydroxide LIQ 30 ML UDC PO SCH (23:23)
[2022-07-02] MEDS ORDERED: ceFAZolin 2 GM in NS PREMIX 2 GM/100 ML BAG IVPB SCH
[2022-07-02] MEDS: ceFAZolin 2 GM PREMIX 2 GM/50 ML BAG IV SCH ×3 (00:35→16:58)
[2022-07-02 05:32] LABS: Hematocrit 27 % (42-52); Hemoglobin 8.6 g/dL (14.0-18.0); Mean Platelet Volume 8.5 fL (7.4-10.4); Platelet Count 228 10^3/uL (150-450)
[2022-07-02 06:02] LABS: Calcium 7.4 mg/dL (8.6-10.3); Potassium 4.1 mmol/L (3.5-5.0); eGFR CKD-EPI 60.9 (>60)
[2022-07-02] MEDS: Venlafaxine XR 75 mg PO SCH (09:00)
[2022-07-02] MEDS ORDERED: ALIROCUMAB 150 MG/ML SUBCUT SCH (09:00)
[2022-07-02] MEDS ORDERED: Influenza vaccine *QUAD* *2022-23* 0.5 ML SYRINGE IM ONE (09:00)
[2022-07-02] MEDS ORDERED: Venlafaxine XR 75 mg PO SCH (09:00)
[2022-07-02] MEDS: Magnesium Hydroxide LIQ 30 ML UDC PO SCH ×2 (09:00→21:50)
[2022-07-02] MEDS: Vitamin THERAPEUTIC TAB PO SCH (09:01)
[2022-07-02] MEDS: NF: DAPAGLIFLOZIN 10 MG TAB (NF) PO SCH (10:33)
[2022-07-02] MEDS: Enoxaparin 40 MG/0.4 ML SYR SUBCUT SCH (13:47)
[2022-07-03] MEDS: ceFAZolin 2 GM PREMIX 2 GM/50 ML BAG IV SCH ×3 (02:15→17:14)
[2022-07-03 05:44] LABS: Hematocrit 29 % (42-52); Hemoglobin 8.9 g/dL (14.0-18.0); Mean Platelet Volume 8.5 fL (7.4-10.4); Platelet Count 251 10^3/uL (150-450)
[2022-07-03 06:00] LABS: Calcium 7.5 mg/dL (8.6-10.3); Magnesium 1.8 mg/dL (1.9-2.7); Potassium 4.2 mmol/L (3.5-5.0); eGFR CKD-EPI 67.1 (>60)
[2022-07-03] MEDS ORDERED: Magnesium Sulfate 2 gm BAG 2 GM/50 ML BAG IVPB ONE (08:19)
[2022-07-03] MEDS: Venlafaxine XR 75 mg PO SCH (11:36)
[2022-07-03] MEDS: Vitamin THERAPEUTIC TAB PO SCH (11:39)
[2022-07-03] MEDS: Magnesium Hydroxide LIQ 30 ML UDC PO SCH (11:40)
[2022-07-03] MEDS: NF: DAPAGLIFLOZIN 10 MG TAB (NF) PO SCH (11:44)
[2022-07-03] MEDS: Enoxaparin 40 MG/0.4 ML SYR SUBCUT SCH (11:45)
[2022-07-03] MEDS ORDERED: Influenza vaccine *QUAD* *2022-23* 0.5 ML SYRINGE IM ONE (13:00)
[2022-07-04] MEDS: ceFAZolin 2 GM PREMIX 2 GM/50 ML BAG IV SCH ×3 (00:36→16:36)
[2022-07-04 06:01] LABS: Hematocrit 30 % (42-52); Hemoglobin 9.4 g/dL (14.0-18.0); Mean Platelet Volume 8.5 fL (7.4-10.4); Platelet Count 272 10^3/uL (150-450)
[2022-07-04 06:17] LABS: Calcium 7.7 mg/dL (8.6-10.3); Potassium 4.1 mmol/L (3.5-5.0); eGFR CKD-EPI 67.1 (>60)
[2022-07-04] MEDS: Venlafaxine XR 75 mg PO SCH (08:21)
[2022-07-04] MEDS: Vitamin THERAPEUTIC TAB PO SCH (08:21)
[2022-07-04] MEDS: NF: DAPAGLIFLOZIN 10 MG TAB (NF) PO SCH (08:53)
[2022-07-04] MEDS ORDERED: Calcium Gluconate 2 GM in NS 0.9% 100 ml BAG 100 ML IV ONE (10:55)
[2022-07-04] MEDS: Enoxaparin 40 MG/0.4 ML SYR SUBCUT SCH (12:30)
[2022-07-05] MEDS: ceFAZolin 2 GM PREMIX 2 GM/50 ML BAG IV SCH ×3 (00:10→16:45)
[2022-07-05] MEDS ORDERED: Dextrose 50% Syringe 50 ml 25 GM/50 ML SYRINGE IV PUSH PRN (02:37)
[2022-07-05 07:03] LABS: Hematocrit 33 % (42-52); Hemoglobin 10.6 g/dL (14.0-18.0); Mean Platelet Volume 8.6 fL (7.4-10.4); Platelet Count 305 10^3/uL (150-450)
[2022-07-05] MEDS: NF: DAPAGLIFLOZIN 10 MG TAB (NF) PO SCH (09:01)
[2022-07-05] MEDS: Venlafaxine XR 75 mg PO SCH (09:01)
[2022-07-05] MEDS: Vitamin THERAPEUTIC TAB PO SCH (09:01)
[2022-07-05] MEDS: Enoxaparin 40 MG/0.4 ML SYR SUBCUT SCH (12:03)
[2022-07-05 17:02] LABS: ABS Basophils 0.1 10^3/ul (0-0.2); ABS Lymphocytes 0.2 10^3/ul (1.0-4.8); ABS Monocytes 0.3 10^3/ul (0-0.8); ABS Neutrophils 13.1 10^3/ul (1.5-7.7); Eosinophil % 0.3 %; Hematocrit 33 % (42-52); Hemoglobin 10.5 g/dL (14.0-18.0); Lymphocyte % 1.6 %; Mean Corpuscular HGB Conc 32 g/dL (31-36); Mean Corpuscular Hemoglobin 27 pg (27-31); Mean Corpuscular Volume 84 fL (80-94); Mean Platelet Volume 8.6 fL (7.4-10.4); Platelet Count 306 10^3/uL (150-450); Red Blood Count 3.96 10^6 /uL (4.18-5.48); Red Cell Distribution Width 18 % (10-15); White Blood Count 13.7 10^3/uL (3.5-10.8)
[2022-07-05 17:35] LABS: Albumin 2.7 g/dL (3.2-5.2); Albumin/Globulin Ratio 0.8 (1-3); Calcium 7.8 mg/dL (8.6-10.3); Globulin 3.6 g/dL (2-4); Potassium 3.9 mmol/L (3.5-5.0); Total Bilirubin 0.2 mg/dL (0.2-1.0); Total Protein 6.3 g/dL (6.4-8.9); eGFR CKD-EPI 40.6 (>60)
[2022-07-05 18:26] LABS: C Reactive Protein 23.86 mg/L (<8.01)
[2022-07-05 18:27] LABS: C Reactive Protein 62.01 mg/L (<8.01)
[2022-07-05] MEDS ORDERED: Piperacillin/Tazobac ADVAN 3.375 GM in NS 0.9% 100 ml BAG 100 ML IV ONE (18:42)
[2022-07-05] MEDS ORDERED: Vancomycin 1,000 MG in NS 0.9% 250 ml 250 ML IVPB ONE (18:43)
[2022-07-05] MEDS ORDERED: LACTATED RINGERS IV ONE (18:54)
[2022-07-05] MEDS ORDERED: Vancomycin per Pharmacy 1 EA NOTE FOLLOW UP SCH (19:00)
[2022-07-05] MEDS ORDERED: Zosyn per Pharmacy NOTE FOLLOW UP SCH (19:00)
[2022-07-05] MEDS ORDERED: Vancomycin 2,000 MG in NS 0.9% 500 ml BAG 500 ML IVPB ONE (19:00)
[2022-07-05] MEDS: Psyllium PAK PO SCH (21:38)
[2022-07-06] MEDS ORDERED: ceFAZolin 2 GM in NS PREMIX 2 GM/100 ML BAG IVPB SCH
[2022-07-06] MEDS: ceFAZolin 2 GM PREMIX 2 GM/50 ML BAG IV SCH ×3 (00:23→15:26)
[2022-07-06 05:43] LABS: ABS Basophils 0.1 10^3/ul (0-0.2); ABS Lymphocytes 0.7 10^3/ul (1.0-4.8); ABS Monocytes 0.6 10^3/ul (0-0.8); ABS Neutrophils 12.2 10^3/ul (1.5-7.7); Eosinophil % 0.1 %; Hematocrit 29 % (42-52); Lymphocyte % 5.1 %; Mean Corpuscular HGB Conc 31 g/dL (31-36); Mean Corpuscular Hemoglobin 26 pg (27-31); Mean Corpuscular Volume 84 fL (80-94); Mean Platelet Volume 8.8 fL (7.4-10.4); Platelet Count 237 10^3/uL (150-450); Red Blood Count 3.48 10^6 /uL (4.18-5.48); Red Cell Distribution Width 18 % (10-15); White Blood Count 13.6 10^3/uL (3.5-10.8)
[2022-07-06 06:24] LABS: Calcium 7.4 mg/dL (8.6-10.3); Magnesium 1.6 mg/dL (1.9-2.7); Potassium 3.6 mmol/L (3.5-5.0); eGFR CKD-EPI 29.6 (>60)
[2022-07-06] MEDS ORDERED: Lactated Ringers 1000 ml BAG 1,000 ML IV ONE ×3 (08:32→15:42)
[2022-07-06] MEDS: Venlafaxine XR 75 mg PO SCH (09:04)
[2022-07-06] MEDS: Vitamin THERAPEUTIC TAB PO SCH (09:05)
[2022-07-06] MEDS: Psyllium PAK PO SCH (09:06)
[2022-07-06] MEDS: NF: DAPAGLIFLOZIN 10 MG TAB (NF) PO SCH (10:05)
[2022-07-06] MEDS: Enoxaparin 40 MG/0.4 ML SYR SUBCUT SCH (12:11)
[2022-07-06] MEDS ORDERED: Alteplase (CATHFLO) 2 MG VIAL IV ONE (14:05)
[2022-07-06] MEDS ORDERED: Lactated Ringers 1000 ml BAG 1,000 ML IV SCH (16:00)
[2022-07-06] MEDS ORDERED: Calcium Gluconate 2 GM in NS 0.9% 100 ml BAG 100 ML IV ONE (16:03)
[2022-07-06] MEDS ORDERED: Magnesium Sulf 4 GM/100 ML IV 4,000 MG/100 ML BAG IVPB ONE (16:04)
[2022-07-07] MEDS: ceFAZolin 2 GM PREMIX 2 GM/50 ML BAG IV SCH ×3 (01:06→22:31)
[2022-07-07] MEDS: Venlafaxine XR 75 mg PO SCH (09:15)
[2022-07-07] MEDS: Vitamin THERAPEUTIC TAB PO SCH (09:15)
[2022-07-07] MEDS: Psyllium PAK PO SCH (09:23)
[2022-07-07] MEDS: Empagliflozin 25 MG TAB PO SCH (09:31)
[2022-07-07 11:07] LABS: ABS Eosinophils 0.5 10^3/ul (0-0.6); ABS Lymphocytes 0.8 10^3/ul (1.0-4.8); ABS Monocytes 0.4 10^3/ul (0-0.8); ABS Neutrophils 8.5 10^3/ul (1.5-7.7); Eosinophil % 5.2 %; Hematocrit 29 % (42-52); Hemoglobin 9.4 g/dL (14.0-18.0); Lymphocyte % 7.6 %; Mean Corpuscular HGB Conc 33 g/dL (31-36); Mean Corpuscular Hemoglobin 28 pg (27-31); Mean Corpuscular Volume 85 fL (80-94); Mean Platelet Volume 9.3 fL (7.4-10.4); Nucleated Red Blood Cells % 0.1; Platelet Count 236 10^3/uL (150-450); Red Blood Count 3.38 10^6 /uL (4.18-5.48); Red Cell Distribution Width 18 % (10-15); White Blood Count 10.3 10^3/uL (3.5-10.8)
[2022-07-07 11:32] LABS: Calcium 7.5 mg/dL (8.6-10.3); Magnesium 2.8 mg/dL (1.9-2.7); Potassium 3.2 mmol/L (3.5-5.0)
[2022-07-07] MEDS: Enoxaparin 40 MG/0.4 ML SYR SUBCUT SCH (11:34)
[2022-07-07 11:37] LABS: eGFR CKD-EPI 22.2 (>60)
[2022-07-07] MEDS ORDERED: KCL 20 MEQ/100 ML IVPREMIX 20 MEQ/100 ML BAG IV ONE (14:11)
[2022-07-07 16:44] LABS: Urine Appearance Cloudy; Urine Bilirubin Negative (Negative); Urine Blood 1+ (Negative); Urine Color Amber; Urine Glucose 1+(50 mg/dL) (Negative); Urine Ketones Trace (Negative); Urine Nitrite Negative (Negative); Urine Protein 2+(100 mg/dL) (Negative); Urine Specific Gravity 1.024 (1.002-1.030); Urine Urobilinogen Negative (Negative)
[2022-07-07 16:48] LABS: Urine Bacteria 1+ (Absent); Urine Red Blood Cell 2+(6-10/hpf) (Absent); Urine Squamous Epithelial Cell Present (Absent); Urine White Blood Cell 1+(6-10/hpf) (Absent)
[2022-07-08 07:02] LABS: ABS Eosinophils 1.2 10^3/ul (0-0.6); ABS Lymphocytes 0.9 10^3/ul (1.0-4.8); ABS Monocytes 0.4 10^3/ul (0-0.8); ABS Neutrophils 5.2 10^3/ul (1.5-7.7); Eosinophil % 15.5 %; Hematocrit 26 % (42-52); Hemoglobin 8.4 g/dL (14.0-18.0); Mean Corpuscular HGB Conc 32 g/dL (31-36); Mean Corpuscular Hemoglobin 27 pg (27-31); Mean Corpuscular Volume 83 fL (80-94); Platelet Count 227 10^3/uL (150-450); Red Blood Count 3.16 10^6 /uL (4.18-5.48); Red Cell Distribution Width 18 % (10-15); White Blood Count 7.8 10^3/uL (3.5-10.8)
[2022-07-08 07:18] LABS: Calcium 7.1 mg/dL (8.6-10.3); Potassium 3.2 mmol/L (3.5-5.0); eGFR CKD-EPI 22.8 (>60)
[2022-07-08 08:19] LABS: Magnesium 2.9 mg/dL (1.9-2.7)
[2022-07-08] MEDS: KCL 20 MEQ/100 ML IVPREMIX 20 MEQ/100 ML BAG IV SCH ×2 (08:53→11:39)
[2022-07-08] MEDS: Venlafaxine XR 75 mg PO SCH (08:59)
[2022-07-08] MEDS: Empagliflozin 25 MG TAB PO SCH (08:59)
[2022-07-08] MEDS: Vitamin THERAPEUTIC TAB PO SCH (08:59)
[2022-07-08] MEDS: Psyllium PAK PO SCH (09:00)
[2022-07-08] MEDS: ceFAZolin 2 GM PREMIX 2 GM/50 ML BAG IV SCH ×2 (10:55→21:59)
[2022-07-08 12:33] LABS: C Reactive Protein 160.13 mg/L (<8.01)
[2022-07-08] MEDS: Enoxaparin 40 MG/0.4 ML SYR SUBCUT SCH (13:03)
[2022-07-09 05:50] LABS: Hematocrit 27 % (42-52); Hemoglobin 8.5 g/dL (14.0-18.0); Mean Corpuscular HGB Conc 32 g/dL (31-36); Mean Corpuscular Hemoglobin 27 pg (27-31); Mean Corpuscular Volume 84 fL (80-94); Mean Platelet Volume 8.9 fL (7.4-10.4); Platelet Count 229 10^3/uL (150-450); Red Cell Distribution Width 18 % (10-15); White Blood Count 5.7 10^3/uL (3.5-10.8)
[2022-07-09 06:44] LABS: Calcium 7.1 mg/dL (8.6-10.3); Magnesium 2.8 mg/dL (1.9-2.7); Potassium 3.5 mmol/L (3.5-5.0); eGFR CKD-EPI 26.8 (>60)
[2022-07-09] MEDS: Venlafaxine XR 75 mg PO SCH (08:22)
[2022-07-09] MEDS: Vitamin THERAPEUTIC TAB PO SCH (08:22)
[2022-07-09] MEDS: Empagliflozin 25 MG TAB PO SCH (08:23)
[2022-07-09] MEDS: Psyllium PAK PO SCH (08:32)
[2022-07-09] MEDS: ceFAZolin 2 GM PREMIX 2 GM/50 ML BAG IV SCH ×2 (09:01→22:05)
[2022-07-09 11:48] LABS: RBC Morphology Normal (Normal)
[2022-07-09 11:49] LABS: ABS Eosinophils 1.4 10^3/ul (0-0.6); ABS Lymphocytes 0.3 10^3/ul (1.0-4.8); ABS Neutrophils 3.8 10^3/ul (1.5-7.7)
[2022-07-09] MEDS: Enoxaparin 40 MG/0.4 ML SYR SUBCUT SCH (12:21)
[2022-07-10 06:38] LABS: Hematocrit 28 % (42-52); Hemoglobin 8.9 g/dL (14.0-18.0); Mean Corpuscular HGB Conc 32 g/dL (31-36); Mean Corpuscular Hemoglobin 27 pg (27-31); Mean Corpuscular Volume 83 fL (80-94); Mean Platelet Volume 8.6 fL (7.4-10.4); Platelet Count 243 10^3/uL (150-450); Red Blood Count 3.34 10^6 /uL (4.18-5.48); Red Cell Distribution Width 18 % (10-15); White Blood Count 6.6 10^3/uL (3.5-10.8)
[2022-07-10 07:18] LABS: Calcium 7.2 mg/dL (8.6-10.3); Potassium 3.9 mmol/L (3.5-5.0); eGFR CKD-EPI 36.2 (>60)
[2022-07-10] MEDS: ceFAZolin 2 GM PREMIX 2 GM/50 ML BAG IV SCH ×2 (09:07→21:43)
[2022-07-10] MEDS: Psyllium PAK PO SCH (09:07)
[2022-07-10] MEDS: Venlafaxine XR 75 mg PO SCH (09:09)
[2022-07-10] MEDS: Vitamin THERAPEUTIC TAB PO SCH (09:10)
[2022-07-10] MEDS: Empagliflozin 25 MG TAB PO SCH (09:10)
[2022-07-10 09:50] LABS: ABS Lymphocytes 1.4 10^3/ul (1.0-4.8); ABS Monocytes 0.8 10^3/ul (0-0.8); ABS Neutrophils 3.3 10^3/ul (1.5-7.7); Anisocytosis 1+; Eosinophil % 15.8 %; Lymphocyte % 21.7 %
[2022-07-10] MEDS: Enoxaparin 40 MG/0.4 ML SYR SUBCUT SCH (12:07)
[2022-07-11 08:02] LABS: Hematocrit 28 % (42-52); Hemoglobin 9.1 g/dL (14.0-18.0); Mean Corpuscular HGB Conc 33 g/dL (31-36); Mean Corpuscular Hemoglobin 28 pg (27-31); Mean Corpuscular Volume 83 fL (80-94); Mean Platelet Volume 8.2 fL (7.4-10.4); Platelet Count 281 10^3/uL (150-450); Red Cell Distribution Width 18 % (10-15); White Blood Count 7.6 10^3/uL (3.5-10.8)
[2022-07-11 08:12] LABS: Calcium 7.4 mg/dL (8.6-10.3); Potassium 4.2 mmol/L (3.5-5.0)
[2022-07-11 08:17] LABS: eGFR CKD-EPI 45.6 (>60)
[2022-07-11] MEDS: ceFAZolin 2 GM PREMIX 2 GM/50 ML BAG IV SCH (08:46)
[2022-07-11] MEDS: Venlafaxine XR 75 mg PO SCH (08:47)
[2022-07-11] MEDS: Empagliflozin 25 MG TAB PO SCH (08:48)
[2022-07-11] MEDS: Vitamin THERAPEUTIC TAB PO SCH (08:49)
[2022-07-11] MEDS: Psyllium PAK PO SCH (08:49)
[2022-07-11 10:01] LABS: RBC Morphology Normal (Normal)
[2022-07-11 10:02] LABS: ABS Basophils 0.1 10^3/ul (0-0.2); ABS Eosinophils 0.9 10^3/ul (0-0.6); ABS Monocytes 0.9 10^3/ul (0-0.8); ABS Neutrophils 3.7 10^3/ul (1.5-7.7); Eosinophil % 12.3 %; Lymphocyte % 26.2 %
[2022-07-11 11:30] VITALS: BP 175/77
[2022-07-11] MEDS: Enoxaparin 40 MG/0.4 ML SYR SUBCUT SCH (13:47)
[2022-07-11 15:23] LABS: C Reactive Protein 49.66 mg/L (<8.01)
== END 2022-07-11 17:30 | disposition home or self-care (01) | DRG 854 ==
LOC: OR 16:03 → INTOOBSV 22:24 → SSU 22:24 → SUATTDRO 07-05 17:00
PROVIDERS: ADMIT Orthopaedic Surgery Sports Medicine; ATTEND Orthopaedic Surgery Sports Medicine

== ENCOUNTER 2023-02-22 06:16 | Inpatient (IN) ==
[2023-02-22 08:43] LABS: ABS Basophils 0.1 10^3/uL (0.0-0.1); ABS Eosinophils 0.3 10^3/uL (0.0-0.5); ABS Lymphocytes 1.8 10^3/uL (1.0-4.8); ABS Monocytes 1.2 10^3/uL (0.0-1.1); Eosinophil % 2.4 %; Hematocrit 36.6 % (38-53); Hemoglobin 11.9 g/dL (13.2-16.3); Lymphocyte % 13.2 %; Mean Corpuscular Hemoglobin 27.6 pg (27-33); Mean Corpuscular Hgb Conc 32.6 g/dL (31-36); Mean Corpuscular Volume 84.6 fL (80-97); Platelet Count 321 10^3/uL (150-450); Red Blood Count 4.32 10^6/uL (4.06-5.63); White Blood Count 13.4 10^3/uL (3.6-10.2)
[2023-02-22 09:07] LABS: Albumin 2.9 g/dL (3.2-5.2); Albumin/Globulin Ratio 0.9 (1-3); C Reactive Protein 131.72 mg/L (<8.01); Calcium 8.2 mg/dL (8.6-10.3); Creatinine, Serum 1.83 mg/dL (0.67-1.17); Globulin 3.4 g/dL (2-4); Potassium 3.7 mmol/L (3.5-5.0); Total Bilirubin 0.3 mg/dL (0.2-1.0); Total Protein 6.3 g/dL (6.4-8.9); eGFR CKD-EPI 44.1 (>60)
[2023-02-22] MEDS ORDERED: Dextrose 50% Syringe 50 ml 25 GM/50 ML SYRINGE IV PUSH PRN (11:53)
[2023-02-22] MEDS ORDERED: Piperacillin/Tazobac ADVAN 3.375 GM in NS 0.9% 100 ml BAG 100 ML IV ONE (13:01)
[2023-02-22] MEDS ORDERED: Piperacillin/Tazobac 3.375 GM ADVAN ONE (13:15)
[2023-02-22] MEDS: Enoxaparin 40 MG/0.4 ML SYR SUBCUT SCH (13:32)
[2023-02-22] MEDS ORDERED: Zosyn per Pharmacy NOTE FOLLOW UP SCH (14:00)
[2023-02-22] MEDS ORDERED: ZOSYN 3.375 GM Q8H per EXTENDED INFUSION IV SCH (17:30)
[2023-02-23] MEDS: ZOSYN 3.375 GM Q8H per EXTENDED INFUSION IV SCH ×3 (01:46→16:53)
[2023-02-23 06:06] LABS: ABS Eosinophils 0.4 10^3/uL (0.0-0.5); ABS Lymphocytes 1.5 10^3/uL (1.0-4.8); ABS Monocytes 1.2 10^3/uL (0.0-1.1); ABS Neutrophils 9.3 10^3/uL (1.5-7.6); Eosinophil % 3.3 %; Hematocrit 36.1 % (38-53); Hemoglobin 11.9 g/dL (13.2-16.3); Lymphocyte % 11.8 %; Mean Corpuscular Hemoglobin 27.4 pg (27-33); Mean Corpuscular Volume 83.1 fL (80-97); Platelet Count 299 10^3/uL (150-450); Red Blood Count 4.34 10^6/uL (4.06-5.63); Red Cell Distribution Width 14.5 % (12-17); White Blood Count 12.3 10^3/uL (3.6-10.2)
[2023-02-23 06:28] LABS: Calcium 8.2 mg/dL (8.6-10.3); Creatinine, Serum 1.89 mg/dL (0.67-1.17); Magnesium 2.3 mg/dL (1.9-2.7); Potassium 3.6 mmol/L (3.5-5.0); eGFR CKD-EPI 42.4 (>60)
[2023-02-23] MEDS ORDERED: Potassium Chlor 20 meq TAB.ER PO ONE (07:11)
[2023-02-23] MEDS ORDERED: Venlafaxine XR 75 mg PO SCH (09:00)
[2023-02-23] MEDS: Nystatin TOP POWDER 15 GM BTL TOPICAL SCH ×2 (10:19→20:39)
[2023-02-23] MEDS: Venlafaxine XR 75 mg PO SCH (10:19)
[2023-02-23] MEDS: NFT: DAPAGLIFLOZIN 10 MG TAB (NF) PO SCH (10:21)
[2023-02-23] MEDS: KCL 20 MEQ/100 ML IVPREMIX 20 MEQ/100 ML BAG IV SCH ×2 (11:44→16:30)
[2023-02-23] MEDS: Morphine 10 MG/ML VIAL (1 ml) IV PRN ×3 (11:45→20:43)
[2023-02-23] MEDS: Enoxaparin 40 MG/0.4 ML SYR SUBCUT SCH (11:45)
[2023-02-23 16:26] LABS: INR 1.22 (0.88-1.18)
[2023-02-24] MEDS: ZOSYN 3.375 GM Q8H per EXTENDED INFUSION IV SCH ×3 (02:03→18:07)
[2023-02-24 06:42] LABS: ABS Basophils 0.1 10^3/uL (0.0-0.1); ABS Eosinophils 0.4 10^3/uL (0.0-0.5); ABS Lymphocytes 1.7 10^3/uL (1.0-4.8); ABS Monocytes 1.1 10^3/uL (0.0-1.1); ABS Neutrophils 8.4 10^3/uL (1.5-7.6); ABS Nucleated RBC 0.01 10^3/ul; Eosinophil % 3.6 %; Hematocrit 32.9 % (38-53); Hemoglobin 10.8 g/dL (13.2-16.3); Lymphocyte % 14.6 %; Mean Corpuscular Hemoglobin 27.3 pg (27-33); Mean Corpuscular Hgb Conc 32.8 g/dL (31-36); Mean Corpuscular Volume 83.3 fL (80-97); Mean Platelet Volume 8.7 fL (7.5-11.2); Platelet Count 293 10^3/uL (150-450); Red Blood Count 3.95 10^6/uL (4.06-5.63); Red Cell Distribution Width 14.4 % (12-17); White Blood Count 11.8 10^3/uL (3.6-10.2)
[2023-02-24 07:06] LABS: Calcium 7.9 mg/dL (8.6-10.3); Creatinine, Serum 1.73 mg/dL (0.67-1.17); Magnesium 2.1 mg/dL (1.9-2.7); Potassium 3.9 mmol/L (3.5-5.0); eGFR CKD-EPI 47.2 (>60)
[2023-02-24] MEDS: Venlafaxine XR 75 mg PO SCH (08:23)
[2023-02-24] MEDS: NFT: DAPAGLIFLOZIN 10 MG TAB (NF) PO SCH (08:24)
[2023-02-24] MEDS: Nystatin TOP POWDER 15 GM BTL TOPICAL SCH ×2 (08:26→22:17)
[2023-02-24] MEDS ORDERED: Iodixanol 320 (CONTRAST) 100 ML SDV ONE ×2 (14:24→15:55)
[2023-02-24] MEDS ORDERED: Lidocaine 1% VIAL 10 MG/ML 30 ML VIAL ONE (14:24)
[2023-02-24] MEDS ORDERED: Heparin 2 UNITS/ML IVPREMIX 2,000 UNIT/1,000 ML BAG IV ONE (14:24)
[2023-02-24] MEDS ORDERED: Midazolam 5 mg/5 ml VIAL 1 mg/ml 5 ml VIAL (5 mg) ONE (14:25)
[2023-02-24] MEDS ORDERED: fentaNYL 100 mcg/2 ml 50 MCG/ML VIAL ONE (14:25)
[2023-02-24] MEDS ORDERED: Heparin 1,000 UNIT/ML 10 ml (10,000 UNITS) CATHLAB/DIALYSIS ONE (14:55)
[2023-02-24] MEDS: Morphine 10 MG/ML VIAL (1 ml) IV PRN (17:53)
[2023-02-25] MEDS: ZOSYN 3.375 GM Q8H per EXTENDED INFUSION IV SCH ×3 (01:27→17:10)
[2023-02-25 07:54] LABS: ABS Basophils 0.1 10^3/uL (0.0-0.1); ABS Eosinophils 0.4 10^3/uL (0.0-0.5); ABS Lymphocytes 1.6 10^3/uL (1.0-4.8); ABS Monocytes 1.1 10^3/uL (0.0-1.1); ABS Neutrophils 8.7 10^3/uL (1.5-7.6); ABS Nucleated RBC 0.01 10^3/ul; Eosinophil % 3.6 %; Hematocrit 32.9 % (38-53); Hemoglobin 10.7 g/dL (13.2-16.3); Lymphocyte % 13.6 %; Mean Corpuscular Hemoglobin 27.5 pg (27-33); Mean Corpuscular Hgb Conc 32.5 g/dL (31-36); Mean Corpuscular Volume 84.5 fL (80-97); Mean Platelet Volume 8.7 fL (7.5-11.2); Platelet Count 278 10^3/uL (150-450); Red Cell Distribution Width 14.6 % (12-17); White Blood Count 11.9 10^3/uL (3.6-10.2)
[2023-02-25 08:08] LABS: Calcium 7.7 mg/dL (8.6-10.3); Creatinine, Serum 1.67 mg/dL (0.67-1.17); eGFR CKD-EPI 49.2 (>60)
[2023-02-25] MEDS: Venlafaxine XR 75 mg PO SCH (09:07)
[2023-02-25] MEDS: Nystatin TOP POWDER 15 GM BTL TOPICAL SCH ×2 (09:13→20:28)
[2023-02-25] MEDS: NFT: DAPAGLIFLOZIN 10 MG TAB (NF) PO SCH (09:13)
[2023-02-25] MEDS: Morphine 10 MG/ML VIAL (1 ml) IV PRN (17:17)
[2023-02-26] MEDS: ZOSYN 3.375 GM Q8H per EXTENDED INFUSION IV SCH ×3 (02:08→18:14)
[2023-02-26 07:35] LABS: ABS Basophils 0.1 10^3/uL (0.0-0.1); ABS Eosinophils 0.7 10^3/uL (0.0-0.5); ABS Lymphocytes 1.7 10^3/uL (1.0-4.8); ABS Monocytes 0.9 10^3/uL (0.0-1.1); ABS Neutrophils 7.8 10^3/uL (1.5-7.6); Eosinophil % 5.9 %; Hematocrit 30.7 % (38-53); Hemoglobin 10.1 g/dL (13.2-16.3); Lymphocyte % 15.4 %; Mean Corpuscular Hemoglobin 27.8 pg (27-33); Mean Corpuscular Hgb Conc 32.7 g/dL (31-36); Mean Corpuscular Volume 85.1 fL (80-97); Mean Platelet Volume 8.9 fL (7.5-11.2); Platelet Count 252 10^3/uL (150-450); Red Blood Count 3.61 10^6/uL (4.06-5.63); Red Cell Distribution Width 14.8 % (12-17); White Blood Count 11.2 10^3/uL (3.6-10.2)
[2023-02-26] MEDS: Venlafaxine XR 75 mg PO SCH (07:47)
[2023-02-26] MEDS: Nystatin TOP POWDER 15 GM BTL TOPICAL SCH ×2 (07:48→21:56)
[2023-02-26] MEDS: Morphine 10 MG/ML VIAL (1 ml) IV PRN ×2 (07:48→18:14)
[2023-02-26 07:56] LABS: Calcium 7.9 mg/dL (8.6-10.3); Creatinine, Serum 1.69 mg/dL (0.67-1.17); Magnesium 2.1 mg/dL (1.9-2.7); Potassium 3.9 mmol/L (3.5-5.0); eGFR CKD-EPI 48.5 (>60)
[2023-02-26] MEDS: NFT: DAPAGLIFLOZIN 10 MG TAB (NF) PO SCH (08:00)
[2023-02-26] MEDS ORDERED: Dextrose 50% Syringe 50 ml 25 GM/50 ML SYRINGE IV PUSH PRN (10:22)
[2023-02-26] MEDS ORDERED: Insulin GLARGINE 100 un/ml 10 ml VIAL SUBCUT SCH (21:00)
[2023-02-27] MEDS: ZOSYN 3.375 GM Q8H per EXTENDED INFUSION IV SCH ×2 (01:30→10:02)
[2023-02-27] MEDS: Morphine 10 MG/ML VIAL (1 ml) IV PRN ×4 (02:53→21:29)
[2023-02-27 06:19] LABS: ABS Basophils 0.1 10^3/uL (0.0-0.1); ABS Eosinophils 0.6 10^3/uL (0.0-0.5); ABS Lymphocytes 1.4 10^3/uL (1.0-4.8); ABS Monocytes 0.6 10^3/uL (0.0-1.1); ABS Neutrophils 5.9 10^3/uL (1.5-7.6); ABS Nucleated RBC 0.01 10^3/ul; Eosinophil % 7.2 %; Hematocrit 32.9 % (38-53); Hemoglobin 10.7 g/dL (13.2-16.3); Mean Corpuscular Hemoglobin 27.3 pg (27-33); Mean Corpuscular Hgb Conc 32.5 g/dL (31-36); Mean Corpuscular Volume 84.1 fL (80-97); Mean Platelet Volume 8.8 fL (7.5-11.2); Nucleated Red Blood Cells % 0.2 /100 WBC (0.0-0.4); Platelet Count 272 10^3/uL (150-450); Red Blood Count 3.91 10^6/uL (4.06-5.63); Red Cell Distribution Width 14.4 % (12-17); White Blood Count 8.5 10^3/uL (3.6-10.2)
[2023-02-27 06:29] LABS: Creatinine, Serum 1.7 mg/dL (0.67-1.17); Magnesium 2.3 mg/dL (1.9-2.7); Potassium 3.9 mmol/L (3.5-5.0); eGFR CKD-EPI 48.2 (>60)
[2023-02-27] MEDS: Venlafaxine XR 75 mg PO SCH (08:32)
[2023-02-27] MEDS: Nystatin TOP POWDER 15 GM BTL TOPICAL SCH ×2 (08:36→22:04)
[2023-02-27] MEDS: ceFAZolin 2 GM in NS PREMIX 2 GM/100 ML BAG IVPB SCH ×2 (15:45→21:59)
[2023-02-27] MEDS ORDERED: Insulin GLARGINE 100 un/ml 10 ml VIAL SUBCUT SCH (21:00)
[2023-02-27] MEDS ORDERED: Heparin 5000 UNITS/ML 1 mL VIAL SUBCUT SCH (22:00)
[2023-02-28] MEDS: ceFAZolin 2 GM in NS PREMIX 2 GM/100 ML BAG IVPB SCH ×3 (05:47→23:37)
[2023-02-28] MEDS: Morphine 10 MG/ML VIAL (1 ml) IV PRN ×3 (05:52→20:16)
[2023-02-28 06:15] LABS: ABS Basophils 0.1 10^3/uL (0.0-0.1); ABS Eosinophils 0.6 10^3/uL (0.0-0.5); ABS Lymphocytes 1.6 10^3/uL (1.0-4.8); ABS Monocytes 0.5 10^3/uL (0.0-1.1); ABS Neutrophils 3.8 10^3/uL (1.5-7.6); ABS Nucleated RBC 0.01 10^3/ul; Eosinophil % 8.9 %; Hematocrit 33.2 % (38-53); Hemoglobin 10.8 g/dL (13.2-16.3); Lymphocyte % 24.5 %; Mean Corpuscular Hemoglobin 27.5 pg (27-33); Mean Corpuscular Hgb Conc 32.6 g/dL (31-36); Mean Corpuscular Volume 84.5 fL (80-97); Mean Platelet Volume 8.7 fL (7.5-11.2); Nucleated Red Blood Cells % 0.1 /100 WBC (0.0-0.4); Platelet Count 299 10^3/uL (150-450); Red Blood Count 3.93 10^6/uL (4.06-5.63); Red Cell Distribution Width 14.2 % (12-17); White Blood Count 6.5 10^3/uL (3.6-10.2)
[2023-02-28 06:34] LABS: Calcium 7.8 mg/dL (8.6-10.3); Creatinine, Serum 1.52 mg/dL (0.67-1.17); Magnesium 2.3 mg/dL (1.9-2.7); Potassium 3.9 mmol/L (3.5-5.0); eGFR CKD-EPI 55.1 (>60)
[2023-02-28] MEDS ORDERED: Midazolam 2 mg/2 ml VIAL 1 mg/ml 2 ml VIAL (2 mg) ONE (08:07)
[2023-02-28] MEDS ORDERED: Dexamethasone IV 4 MG/ML VIAL 1 ml VIAL ONE (08:07)
[2023-02-28] MEDS ORDERED: Ondansetron 4 mg VIAL 2 MG/ML 2 ml VIAL ONE (08:07)
[2023-02-28] MEDS ORDERED: Lidocaine 2% PF 5 ML VIAL ONE (08:07)
[2023-02-28] MEDS ORDERED: Propofol 10 MG/ML 20 ML BTL ONE (08:07)
[2023-02-28] MEDS ORDERED: fentaNYL 100 mcg/2 ml 50 MCG/ML VIAL ONE (08:07)
[2023-02-28] MEDS: Nystatin TOP POWDER 15 GM BTL TOPICAL SCH ×2 (08:11→21:26)
[2023-02-28] MEDS: Venlafaxine XR 75 mg PO SCH (08:12)
[2023-02-28] MEDS ORDERED: Naloxone 0.4 mg VIAL 0.4 mg/ml 1 ml VIAL IV PRN (09:26)
[2023-02-28] MEDS ORDERED: fentaNYL 100 mcg/2 ml 50 MCG/ML VIAL IV PRN (09:26)
[2023-02-28] MEDS ORDERED: Bupivacaine 0.5% SDV PF 30ML VIAL ONE (09:38)
[2023-02-28] MEDS: Insulin GLARGINE 100 un/ml 10 ml VIAL SUBCUT SCH (21:35)
[2023-02-28] MEDS: Enoxaparin 40 MG/0.4 ML SYR SUBCUT SCH (21:37)
[2023-03-01] MEDS: Morphine 10 MG/ML VIAL (1 ml) IV PRN ×4 (00:36→14:12)
[2023-03-01] MEDS: ceFAZolin 2 GM in NS PREMIX 2 GM/100 ML BAG IVPB SCH ×3 (05:56→22:29)
[2023-03-01] MEDS: Nystatin TOP POWDER 15 GM BTL TOPICAL SCH ×2 (08:48→23:01)
[2023-03-01] MEDS: Venlafaxine XR 75 mg PO SCH (08:50)
[2023-03-01] MEDS: Enoxaparin 40 MG/0.4 ML SYR SUBCUT SCH (22:22)
[2023-03-01] MEDS: Insulin GLARGINE 100 un/ml 10 ml VIAL SUBCUT SCH (22:23)
[2023-03-02] MEDS: ceFAZolin 2 GM in NS PREMIX 2 GM/100 ML BAG IVPB SCH ×3 (06:01→23:29)
[2023-03-02 06:30] LABS: ABS Basophils 0.1 10^3/uL (0.0-0.1); ABS Eosinophils 0.5 10^3/uL (0.0-0.5); ABS Lymphocytes 1.9 10^3/uL (1.0-4.8); ABS Monocytes 0.7 10^3/uL (0.0-1.1); Eosinophil % 5.8 %; Hematocrit 32.5 % (38-53); Hemoglobin 10.7 g/dL (13.2-16.3); Lymphocyte % 23.5 %; Mean Corpuscular Hemoglobin 27.8 pg (27-33); Mean Corpuscular Volume 84.3 fL (80-97); Mean Platelet Volume 8.1 fL (7.5-11.2); Platelet Count 297 10^3/uL (150-450); Red Blood Count 3.85 10^6/uL (4.06-5.63); Red Cell Distribution Width 14.4 % (12-17); White Blood Count 8.3 10^3/uL (3.6-10.2)
[2023-03-02 06:51] LABS: C Reactive Protein 25.51 mg/L (<8.01); Creatinine, Serum 1.28 mg/dL (0.67-1.17); Potassium 4.1 mmol/L (3.5-5.0); eGFR CKD-EPI 67.8 (>60)
[2023-03-02] MEDS: Nystatin TOP POWDER 15 GM BTL TOPICAL SCH ×2 (07:30→20:54)
[2023-03-02] MEDS: Venlafaxine XR 75 mg PO SCH (07:35)
[2023-03-02 19:22] LABS: Hepatitis C Antibody Negative (Negative)
[2023-03-02 19:25] LABS: HIV 4th Generation Nonreactive (Nonreactive)
[2023-03-02 19:44] LABS: Hepatitis B Surface Antigen Nonreactive (Nonreactive)
[2023-03-02] MEDS: Insulin GLARGINE 100 un/ml 10 ml VIAL SUBCUT SCH (21:06)
[2023-03-02] MEDS: Enoxaparin 40 MG/0.4 ML SYR SUBCUT SCH (21:06)
[2023-03-03] MEDS: ceFAZolin 2 GM in NS PREMIX 2 GM/100 ML BAG IVPB SCH ×2 (07:07→15:48)
[2023-03-03] MEDS: Venlafaxine XR 75 mg PO SCH (07:53)
[2023-03-03] MEDS: Nystatin TOP POWDER 15 GM BTL TOPICAL SCH (07:57)
[2023-03-03 09:49] VITALS: BP 176/108
[2023-03-03] MEDS ORDERED: Insulin GLARGINE 100 un/ml 10 ml VIAL SUBCUT SCH (21:00)
== END 2023-03-03 18:10 | disposition home or self-care (01) | DRG 504 ==
LOC: ED 06:16 → EDHOLD 11:35 → SUATTDRO 11:35 → MED 21:18 → SSU 02-25 22:40
PROVIDERS: ADMIT Student in an Organized Health Care Education/Training Program; ATTEND Internal Medicine

== ENCOUNTER 2023-05-20 21:53 | Observation (INO) ==
[2023-05-20 22:39] LABS: ABS Basophils 0.1 10^3/uL (0.0-0.1); ABS Eosinophils 0.2 10^3/uL (0.0-0.5); ABS Monocytes 0.8 10^3/uL (0.0-1.1); ABS Neutrophils 8.9 10^3/uL (1.5-7.6); ABS Nucleated RBC 0.01 10^3/ul; Eosinophil % 2.1 %; Hemoglobin 13.7 g/dL (13.2-16.3); Lymphocyte % 8.9 %; Mean Corpuscular Hemoglobin 27.3 pg (27-33); Mean Corpuscular Hgb Conc 33.5 g/dL (31-36); Mean Corpuscular Volume 81.7 fL (80-97); Nucleated Red Blood Cells % 0.1 /100 WBC (0.0-0.4); Platelet Count 147 10^3/uL (150-450); Red Blood Count 5.02 10^6/uL (4.06-5.63)
[2023-05-20 22:46] LABS: INR 1.19 (0.83-1.13)
[2023-05-20 22:55] LABS: ALT 10 U/L (7-52); Albumin 3.3 g/dL (3.2-5.2); Albumin/Globulin Ratio 0.9 (1-3); Alkaline Phosphatase 167 U/L (35-149); Blood Urea Nitrogen 101 mg/dL (6-24); C Reactive Protein 83.45 mg/L (<8.01); CO2 Carbon Dioxide 34 mmol/L (22-32); Calcium 8.5 mg/dL (8.6-10.3); Chloride 97 mmol/L (101-111); Creatinine, Serum 3.81 mg/dL (0.67-1.17); Globulin 3.6 g/dL (2-4); Glucose 185 mg/dL (70-100); Lipase 16 U/L (11.0-82.0); Sodium 141 mmol/L (135-145); Total Protein 6.9 g/dL (6.4-8.9); eGFR CKD-EPI 18.2 (>60)
[2023-05-20 23:01] LABS: High Sens Troponin Baseline 20 pg/mL (<20)
[2023-05-20 23:07] LABS: Anion Gap 10 mmol/L (2-16)
[2023-05-20] MEDS ORDERED: NS 0.9% 1000 ml BAG 1,000 ML IV ONE (23:42)
[2023-05-20] MEDS ORDERED: Ondansetron 4 mg VIAL 2 MG/ML 2 ml VIAL IV ONE (23:44)
[2023-05-21] MEDS ORDERED: Ondansetron 4 mg VIAL 2 MG/ML 2 ml VIAL IV PRN (00:58)
[2023-05-21] MEDS ORDERED: Senna TAB 8.6 mg TAB PO PRN (00:58)
[2023-05-21] MEDS ORDERED: Polyethylene Glycol 3350 17 GM PACKET PO PRN (00:58)
[2023-05-21 01:27] LABS: High Sensitivity Troponin 1 Hr 22 pg/mL (<20)
[2023-05-21] MEDS ORDERED: Fluticasone NASAL SPRAY 50MCG 16 gm SPRAY BTL INTRANASAL PRN (01:48)
[2023-05-21] MEDS ORDERED: Dextrose 50% Syringe 50 ml 25 GM/50 ML SYRINGE IV PUSH PRN (01:51)
[2023-05-21 01:52] LABS: Potassium Redraw 2.5 mmol/L (3.5-5.0)
[2023-05-21] MEDS ORDERED: Potassium Chlor 20 meq TAB.ER PO ONE ×3 (02:17→13:13)
[2023-05-21] MEDS ORDERED: KCL 20 MEQ/100 ML IVPREMIX 20 MEQ/100 ML BAG IV ONE (02:32)
[2023-05-21 06:07] LABS: ABS Basophils 0.1 10^3/uL (0.0-0.1); ABS Eosinophils 0.2 10^3/uL (0.0-0.5); ABS Monocytes 0.6 10^3/uL (0.0-1.1); ABS Neutrophils 7.1 10^3/uL (1.5-7.6); ABS Nucleated RBC 0.01 10^3/ul; Eosinophil % 2.6 %; Hemoglobin 13.3 g/dL (13.2-16.3); Lymphocyte % 11.5 %; Mean Corpuscular Hemoglobin 27.1 pg (27-33); Mean Corpuscular Hgb Conc 33.3 g/dL (31-36); Mean Corpuscular Volume 81.4 fL (80-97); Mean Platelet Volume 10.4 fL (7.5-11.2); Nucleated Red Blood Cells % 0.1 /100 WBC (0.0-0.4); Platelet Count 140 10^3/uL (150-450); Red Blood Count 4.91 10^6/uL (4.06-5.63); Red Cell Distribution Width 14.6 % (12-17); White Blood Count 9.1 10^3/uL (3.6-10.2)
[2023-05-21 06:08] LABS: Activated Partial Thrombo Time 31.7 seconds (26.0-38.0); INR 1.17 (0.83-1.13)
[2023-05-21 06:15] LABS: Creatinine, Serum 3.34 mg/dL (0.67-1.17); eGFR CKD-EPI 21.3 (>60)
[2023-05-21 06:22] LABS: High Sensitivity Troponin 3 Hr 18 pg/mL (<20)
[2023-05-21] MEDS: Heparin 5000 UNITS/ML 1 mL VIAL SUBCUT SCH ×3 (06:38→21:25)
[2023-05-21] MEDS ORDERED: Senna/Docusate 8.6/50 mg (NF) TAB PO SCH (09:00)
[2023-05-21] MEDS: Senna TAB 8.6 mg TAB PO SCH (09:27)
[2023-05-21] MEDS: Venlafaxine XR 75 mg PO SCH ×2 (09:28→09:32)
[2023-05-21] MEDS: Mupirocin 2% OINT TUBE TOPICAL SCH ×2 (09:32→22:39)
[2023-05-21 10:31] LABS: Calcium 7.9 mg/dL (8.6-10.3); Creatinine, Serum 3.42 mg/dL (0.67-1.17); Potassium 2.8 mmol/L (3.5-5.0); eGFR CKD-EPI 20.7 (>60)
[2023-05-21 13:11] LABS: Urine Appearance Clear; Urine Bilirubin Negative (Negative); Urine Blood 1+ (Negative); Urine Color Yellow; Urine Glucose 3+(>=500 mg/dL) (Negative); Urine Ketones Negative (Negative); Urine Nitrite Negative (Negative); Urine Protein 1+(30 mg/dL) (Negative); Urine Urobilinogen Negative (Negative)
[2023-05-21 13:14] LABS: Urine Bacteria Absent (Absent); Urine Red Blood Cell 2+(6-10/hpf) (Absent); Urine Squamous Epithelial Cell Present (Absent); Urine White Blood Cell Absent (Absent)
[2023-05-21] MEDS: KCL 20 MEQ/100 ML IVPREMIX 20 MEQ/100 ML BAG IV SCH ×2 (14:21→16:36)
[2023-05-21] MEDS ORDERED: Insulin GLARGINE 100 un/ml 10 ml VIAL SUBCUT SCH (22:31)
[2023-05-22] MEDS: Heparin 5000 UNITS/ML 1 mL VIAL SUBCUT SCH ×3 (05:08→21:18)
[2023-05-22 06:13] LABS: ABS Basophils 0.1 10^3/uL (0.0-0.1); ABS Eosinophils 0.8 10^3/uL (0.0-0.5); ABS Lymphocytes 1.1 10^3/uL (1.0-4.8); ABS Monocytes 0.6 10^3/uL (0.0-1.1); ABS Neutrophils 5.6 10^3/uL (1.5-7.6); ABS Nucleated RBC 0.01 10^3/ul; Eosinophil % 9.3 %; Hematocrit 36.1 % (38-53); Hemoglobin 12.1 g/dL (13.2-16.3); Lymphocyte % 13.8 %; Mean Corpuscular Hemoglobin 27.3 pg (27-33); Mean Corpuscular Hgb Conc 33.5 g/dL (31-36); Mean Corpuscular Volume 81.7 fL (80-97); Mean Platelet Volume 10.5 fL (7.5-11.2); Nucleated Red Blood Cells % 0.1 /100 WBC (0.0-0.4); Platelet Count 127 10^3/uL (150-450); Red Blood Count 4.43 10^6/uL (4.06-5.63); White Blood Count 8.1 10^3/uL (3.6-10.2)
[2023-05-22 06:33] LABS: Calcium 8.2 mg/dL (8.6-10.3); Creatinine, Serum 2.62 mg/dL (0.67-1.17); Magnesium 2.1 mg/dL (1.9-2.7); Potassium 3.3 mmol/L (3.5-5.0); eGFR CKD-EPI 28.5 (>60)
[2023-05-22] MEDS ORDERED: Sulfur Hexaflouride MICROSPHR 25 MG VIAL ONE (08:25)
[2023-05-22] MEDS: Senna TAB 8.6 mg TAB PO SCH (08:59)
[2023-05-22] MEDS: Venlafaxine XR 75 mg PO SCH ×2 (08:59→09:00)
[2023-05-22] MEDS: Potassium Chlor 20 meq TAB.ER PO SCH ×4 (09:03→13:15)
[2023-05-22] MEDS: Mupirocin 2% OINT TUBE TOPICAL SCH ×2 (10:17→20:49)
[2023-05-22 14:53] LABS: Creatinine, Serum 2.32 mg/dL (0.67-1.17); Potassium 3.8 mmol/L (3.5-5.0)
[2023-05-22] MEDS ORDERED: Insulin GLARGINE 100 un/ml 10 ml VIAL SUBCUT SCH (21:00)
[2023-05-23] MEDS: Heparin 5000 UNITS/ML 1 mL VIAL SUBCUT SCH ×4 (05:02→21:28)
[2023-05-23 07:09] LABS: Calcium 8.1 mg/dL (8.6-10.3); Creatinine, Serum 2.17 mg/dL (0.67-1.17); Potassium 3.6 mmol/L (3.5-5.0); eGFR CKD-EPI 35.7 (>60)
[2023-05-23] MEDS: Venlafaxine XR 75 mg PO SCH ×2 (08:32→10:42)
[2023-05-23] MEDS: Senna TAB 8.6 mg TAB PO SCH (08:36)
[2023-05-23] MEDS: Mupirocin 2% OINT TUBE TOPICAL SCH ×2 (10:48→21:27)
[2023-05-24 04:34] LABS: ABS Basophils 0.1 10^3/uL (0.0-0.1); ABS Eosinophils 0.7 10^3/uL (0.0-0.5); ABS Lymphocytes 1.5 10^3/uL (1.0-4.8); ABS Monocytes 0.9 10^3/uL (0.0-1.1); ABS Neutrophils 4.4 10^3/uL (1.5-7.6); Eosinophil % 9.1 %; Hematocrit 34.8 % (38-53); Hemoglobin 11.5 g/dL (13.2-16.3); Lymphocyte % 19.9 %; Mean Corpuscular Hemoglobin 27.1 pg (27-33); Mean Platelet Volume 10.3 fL (7.5-11.2); Platelet Count 156 10^3/uL (150-450); Red Blood Count 4.24 10^6/uL (4.06-5.63); Red Cell Distribution Width 15.2 % (12-17); White Blood Count 7.6 10^3/uL (3.6-10.2)
[2023-05-24 04:51] LABS: Calcium 7.9 mg/dL (8.6-10.3); Potassium 3.8 mmol/L (3.5-5.0)
[2023-05-24 04:56] LABS: Creatinine, Serum 1.82 mg/dL (0.67-1.17); eGFR CKD-EPI 44.1 (>60)
[2023-05-24] MEDS: Heparin 5000 UNITS/ML 1 mL VIAL SUBCUT SCH ×2 (05:55→14:35)
[2023-05-24] MEDS: Senna TAB 8.6 mg TAB PO SCH (08:11)
[2023-05-24] MEDS: Venlafaxine XR 75 mg PO SCH ×2 (08:12→08:14)
[2023-05-24] MEDS: Mupirocin 2% OINT TUBE TOPICAL SCH (09:22)
[2023-05-24 16:30] VITALS: BP 145/79
== END 2023-05-24 16:15 | disposition home or self-care (01) ==
LOC: ED 21:53 → EDHOLD 21:53 → MEDTELE 05-21 00:58 → SUATTDRO 05-21 00:58 → MEDTELE 05-21 17:38
PROVIDERS: ADMIT Student in an Organized Health Care Education/Training Program; ATTEND Internal Medicine

== ENCOUNTER 2024-04-13 18:14 | Observation (INO) ==
[2024-04-13 20:06] LABS: ABS Basophils 0.1 10^3/uL (0.0-0.1); ABS Lymphocytes 1.2 10^3/uL (1.0-4.8); ABS Monocytes 1.3 10^3/uL (0.0-1.1); ABS Neutrophils 10.1 10^3/uL (1.5-7.6); ABS Nucleated RBC 0.01 10^3/ul; Eosinophil % 0.3 %; Hematocrit 42.8 % (38-53); Hemoglobin 13.3 g/dL (13.2-16.3); Lymphocyte % 9.2 %; Mean Corpuscular Hemoglobin 22.6 pg (27-33); Mean Platelet Volume 10.7 fL (7.5-11.2); Nucleated Red Blood Cells % 0.1 %/100WBC (0.0-0.8); Platelet Count 228 10^3/uL (150-450); Red Blood Count 5.86 10^6/uL (4.06-5.63); Red Cell Distribution Width 22.1 % (12-17); White Blood Count 12.7 10^3/uL (3.6-10.2)
[2024-04-13 20:18] LABS: High Sens Troponin Baseline 62 pg/mL (<20)
[2024-04-13 20:40] LABS: ALT 15 U/L (7-52); AST 23 U/L (13-39); Albumin/Globulin Ratio 0.9 (1-3); Alkaline Phosphatase 220 U/L (35-149); Anion Gap 14 mmol/L (2-16); CO2 Carbon Dioxide 32 mmol/L (22-32); Calcium 8.1 mg/dL (8.6-10.3); Chloride 87 mmol/L (101-111); Creatinine, Serum 5.27 mg/dL (0.67-1.17); Globulin 3.4 g/dL (2-4); Glucose 570 mg/dL (70-100); Magnesium 1.9 mg/dL (1.9-2.7); Potassium 3.1 mmol/L (3.5-5.0); Sodium 133 mmol/L (135-145); Total Bilirubin 0.8 mg/dL (0.2-1.0); Total Protein 6.4 g/dL (6.4-8.9); Uric Acid 13.6 mg/dL (4.4-7.6); eGFR CKD-EPI 12.2 (>60)
[2024-04-13 20:45] LABS: Blood Urea Nitrogen > 120 mg/dL (6-24)
[2024-04-13 20:46] LABS: TSH Ultra Thyroid Stim Horm 0.86 mcIU/mL (0.34-5.60)
[2024-04-13 21:06] LABS: INR 1.08 (0.85-1.14)
[2024-04-13 21:18] LABS: High Sensitivity Troponin 1 Hr 67 pg/mL (<20)
[2024-04-13] MEDS: NS 0.9% 1000 ml BAG 1,000 ML IV ONE (21:56)
[2024-04-13 22:15] LABS: Osmolality Serum 354 mOsm/kg (275-295)
[2024-04-13 23:03] LABS: Lipase 43 U/L (11.0-82.0); Phosphorus 6.2 mg/dL (2.5-5.0)
[2024-04-14 00:35] LABS: Urine Appearance Clear; Urine Bilirubin Negative (Negative); Urine Blood 1+ (Negative); Urine Color Light-Yellow; Urine Glucose 4+ (>=1000 mg/dL) (Negative); Urine Ketones Negative (Negative); Urine Nitrite Negative (Negative); Urine Protein Negative (Negative); Urine Specific Gravity 1.015 (1.002-1.030); Urine Urobilinogen Negative (Negative)
[2024-04-14 00:37] LABS: Urine Bacteria Absent /HPF (Absent); Urine Red Blood Cell 1+(3-5/hpf) /HPF (0-Trace); Urine White Blood Cell Trace(0-5/hpf) /HPF (0-Trace)
[2024-04-14] MEDS: NS 0.9% w/ 20 Meq KCL 1000 ml 1,000 ML IV SCH (01:32)
[2024-04-14] MEDS ORDERED: Dextrose 50% Syringe 50 ml 25 GM/50 ML SYRINGE IV PUSH PRN (02:53)
[2024-04-14 02:55] LABS: Blood Urea Nitrogen > 120 mg/dL (6-24)
[2024-04-14] MEDS ORDERED: METOLAZONE PO SCH (03:00)
[2024-04-14 03:20] LABS: Anion Gap 13 mmol/L (2-16); CO2 Carbon Dioxide 33 mmol/L (22-32); Calcium 8.2 mg/dL (8.6-10.3); Chloride 92 mmol/L (101-111); Creatinine, Serum 4.78 mg/dL (0.67-1.17); Glucose 422 mg/dL (70-100); Magnesium 1.9 mg/dL (1.9-2.7); Phosphorus 5.3 mg/dL (2.5-5.0); Sodium 138 mmol/L (135-145); eGFR CKD-EPI 13.8 (>60)
[2024-04-14] MEDS: KCL 20 MEQ/100 ML IVPREMIX 20 MEQ/100 ML BAG IV SCH (04:29)
[2024-04-14] MEDS ORDERED: Venlafaxine XR 75 mg PO SCH (09:00)
[2024-04-14] MEDS: NS 0.9% 1000 ml BAG 1,000 ML IV SCH (10:00)
[2024-04-14 10:47] LABS: Acetaminophen < 15 mcg/mL; Alcohol, S 14 mg/dL (<13)
[2024-04-14 10:50] LABS: Urine Benzodiazepine Screen None Detected (None Detect); Urine Cannabinoids Screen None Detected (None Detect); Urine Opiates Screen Presumptive Positive (None Detect)
[2024-04-14] MEDS: Venlafaxine XR 75 mg PO SCH (12:29)
[2024-04-14] MEDS: CMCS:Lubiprostone 24 MCG CAP (NF) PO SCH (12:31)
[2024-04-14] MEDS: Potassium Chlor 10 meq TAB PO SCH (12:32)
[2024-04-14] MEDS: Heparin 5000 UNITS/ML 1 mL VIAL SUBCUT SCH (13:24)
[2024-04-14] MEDS ORDERED: Senna TAB 8.6 mg TAB PO PRN (16:41)
[2024-04-14] MEDS: Ondansetron ODT 4 mg TAB 4 MG TAB SL PRN (19:56)
[2024-04-14] MEDS ORDERED: Insulin GLARGINE 100 un/ml 10 ml VIAL SUBCUT ONE (21:00)
[2024-04-15] MEDS: KCL 20 MEQ/100 ML IVPREMIX 20 MEQ/100 ML BAG IV SCH (09:25)
[2024-04-17 11:51] VITALS: BP 115/79
== END 2024-04-17 17:20 | disposition home or self-care (01) ==
LOC: ED 18:14 → EDHOLD 18:14 → SUATTDRO 04-14 02:49 → MED 04-14 13:25
PROVIDERS: ADMIT Hospitalist; ATTEND Student in an Organized Health Care Education/Training Program